=== PATIENT | female | born 1935 | race Caucasian/White ===

== ENCOUNTER 2019-07-12 07:50 | Inpatient (IN) ==
[2019-07-12] MEDS ORDERED: ONDANSETRON INJ 2 MG/ML 2 ML VIAL IV STA ×2 (08:21→09:58)
[2019-07-12] MEDS ORDERED: SODIUM CHLORIDE 0.9% 1000ML 1,000 ML IV ONE (08:21)
[2019-07-12] MEDS ORDERED: GI COCKTAIL ED USE PO ONE (08:21)
--- NOTE | 2019-07-12 08:38 | XRay Report ---
XR chest 1V portable CLINICAL HISTORY: Chest pain. COMPARISON STUDY: Chest radiograph March 28, 2018. FINDINGS: Lung volumes are normal. Lungs are clear. There is no pneumothorax or pleural effusion. Car diac size is normal. Mediastinal contours are normal. There is no evidence for pulmonary edema. IMPRESSION: No acute cardiopulmonary findings. ACT 112: Negative or not required by law. Electronically signed by: Luther Thompson M.D. 07/12/2019 8:36 AM
[2019-07-12 08:47] LABS: Basophils # (auto) 0.02 K/uL (0-0.2); Basophils % (auto) 0.2 %; Eosinophils # (auto) 0.15 K/uL (0-0.5); Eosinophils % (auto) 1.4 %; Hemoglobin 12.3 g/dL (12.0-16.0); Immature Granulocytes # (auto) 0.02 K/uL (0.00-0.02); Immature Granulocytes % (auto) 0.2 %; Lymphocytes # (auto) 0.58 K/uL (1.2-3.4); Lymphocytes % (auto) 5.5 %; Mean Corpuscular Hemoglobin 31.6 pg (25-34); Mean Corpuscular Hgb Conc 33.2 g/dL (32-36); Mean Corpuscular Volume 95.1 fL (80-100); Mean Platelet Volume 9.7 fL (7.4-10.4); Monocytes # (auto) 0.67 K/uL (0.11-0.59); Monocytes % (auto) 6.3 %; Neutrophils % (auto) 86.4 %; Platelet Count 162 K/uL (130-400); RDW Coefficient of Variation 12.4 % (11.5-14.5); RDW Standard Deviation 42.6 fL (36.4-46.3); Red Blood Count 3.89 M/uL (4.2-5.4); White Blood Count 10.64 K/uL (4.8-10.8)
[2019-07-12 09:05] LABS: Alanine Aminotransferase 14 U/L (12-78); Albumin Level 3.8 gm/dl (3.4-5.0); Aspartate Aminotransferase 17 U/L (15-37); BUN Creatinine Ratio 10.5 (10-20); Blood Urea Nitrogen 15 mg/dl (7-18); Carbon Dioxide 29 mmol/L (21-32); Chloride 102 mmol/L (98-107); Creatinine Clr Calc Pharmacy 25.2 ml/min; Est GFR (African American) 38.2; Est GFR (Non-African American) 32.9; Glucose 208 mg/dl (70-99); Lipase 61 U/L (73-393); Sodium 139 mmol/L (136-145)
[2019-07-12 09:10] LABS: Albumin Globulin Ratio 1.4 (0.9-2); Alkaline Phosphatase 57 U/L (45-117); Bilirubin,Total 0.6 mg/dl (0.2-1); Globulin 2.7 gm/dl (2.5-4.0); Total Protein 6.5 gm/dl (6.4-8.2); Troponin I < 0.015 ng/ml (0-0.045)
[2019-07-12] MEDS ORDERED: IOVERSOL 100ml IV PRN (09:18)
[2019-07-12] MEDS ORDERED: MoRPHine SULFATE 10 MG/ML CARP/VIAL IV STA (09:58)
[2019-07-12 10:03] LABS: Appearance Urine Clear (Clear); Bacteria Urine Automated Negative (Negative); Bilirubin Urine Negative (Negative); Blood Urine Trace (Negative); Cast Urine Automated 0 /lpf (0-5); Color Urine Yellow; Epithelial Cell Urine Auto 0-5 /lpf (0-5); Glucose Urine UA Negative (Negative); Ketones Urine Trace (Negative); Leukocyte Esterase Urine Negative (Negative); Nitrite Urine Negative (Negative); Protein Urine Negative (Negative); RBC Urine Automated 0-4 /hpf (0-4); Urobilinogen Urine Negative (Negative); pH Urine 6.5 (4.5-7.5)
--- NOTE | 2019-07-12 10:07 | CT Scan Report ---
CT OF THE ABDOMEN AND PELVIS WITH CONTRAST CLINICAL HISTORY: Abdominal pain. COMPARISON STUDY: CT of the abdomen and pelvis July 07, 2019. TECHNIQUE: Following IV administration of 94 mL of Optiray-320, axial images of the abdomen and pelvi s were obtained from the lung bases to the proximal femurs. Images were reviewed in the axial, sagitt al, and coronal planes. IV contrast was administered without complication. Automated exposure contro l was utilized for the study. A dose lowering technique was utilized adhering to the principles of A HUAN. CT DOSE: 310.50 mGy.cm FINDINGS: Imaged portions of the lower chest demonstrate a right mastectomy. The heart is mildly enla rged. No pneumatosis, free air or portal venous gas is present. A few subcentimeter hypodense splenic lesions are probably benign. There is no biliary or pancreatic ductal dilatation. Moderate gallbladd er wall thickening is a nonspecific finding. No hepatic lesions are present. There is moderate right and mild to moderate left hydroureteronephrosis. Several left renal cysts are noted. Nephrograms are symmetric. Interval increase in a small amount of abdominal and pelvic ascites is noted. Major vascul ature is patent. There is also been interval development of moderate small bowel dilatation. The prox imal to mid small bowel is fluid-filled and dilated. There are numerous decompressed small bowel loop s within the pelvis. This suggests a small bowel obstruction which has developed since prior exam. Th ere is mesenteric infiltration which has increased. Possible lesion of the distal transverse colon is noted. There is mild wall thickening of the transverse colon. Sigmoid diverticulosis is noted withou t evidence for acute diverticulitis. No abdominal or pelvic lymphadenopathy is noted. There is a poss ible sclerotic lesion within the posterior right 10th rib. Note is made of a 1 cm enhancing lesion [place] the left lateral wall of the bladder. There may be mild omental nodularity. IMPRESSION: 1. Interval development of a small bowel obstruction with transition point within the pelvis. The juventino ology for this obstruction is not clear on this exam. Increase in ascites and mesenteric infiltration . This could be correlated with lactate to exclude the possibility of bowel ischemia but no pneumatos is, free air or portal venous gas. Peritoneal carcinomatosis is also within the differential. Subtle omental nodularity. Findings discussed with Dr. Jolly at time of dictation. 2. Possible annular lesion within the distal transverse colon. Correlation with nonemergent colonosco py is recommended. 3. Bilateral hydronephrosis of uncertain etiology. 4. Moderate gallbladder wall thickening, a nonspecific finding. 5. 1 cm enhancing lesion along the left lateral aspect of the bladder which likely reflects a urothel ial lesion. 6. Possible sclerotic lesion within the posterior right 10th rib. Metastatic disease is within the di fferential. ACT 112: Negative or not required by law. Electronically signed by: Luther Thompson M.D. 07/12/2019 10:05 AM
--- NOTE | 2019-07-12 12:25 | History & Physical Report ---
Date of Service July 12, 2019 Assessment & Plan (1) Small bowel obstruction: -Admit to [facility] -Patient presenting from home with reports of increasing abdominal distention, nausea, vomiting, abdominal pain -CT ABD/pelvis showing small bowel obstruction however etiology unclear, possibly due to carcinomatosis (CT also notes bladder, colon, and rib lesions) -Currently no active vomiting and pain is controlled, will hold on NG tube for now -Lactate 1.6 -General surgery consult, ED notified Dr. Andino -Continue supportive care with n.p.o., IVF, IV Pepcid, pain and nausea control (2) Lesion of bladder: (3) Lesion of colon: (4) Rib lesion: (5) Bilateral hydronephrosis: -CT notes 1 cm bladder lesion and possible transverse colon and rib lesions, bilateral hydronephrosis; possible carcinomatosis as etiology for SBO -will consult urology for input -Likely will need colonoscopy however will defer GI evaluation until SBO resolved -Regarding bilateral hydronephrosis, creatinine is noted to be baseline at 1.4 -Remote history of breast cancer, previously followed with Dr. Fong (6) CKD (chronic kidney disease), stage III: - baseline creat runs in the mid ones - creat noted to be 1.4 today - continue to monitor, avoid nephrotoxic agents when able (7) DM type 2 (diabetes mellitus, type 2): -Hgb A1c 6.9 05/2019 -Hold oral agents and utilize NovoLog per protocol while hospitalized (8) HTN (hypertension): -BP controlled, continue atenolol and amlodipine (9) Temporal arteritis: -Receives Actemra injections every 14 days (10) Dyslipidemia: -Continue statin (11) DVT prophylaxis: -SQ heparin History of Present Illness Chief Complaint: Abdominal pain, vomiting Primary Care Provider: Mana Thompson DO 83-year-old female who presents the ED for evaluation of abdominal pain and vomiting. Patient was seen in the ED on 07/07 and diagnosed with gastritis. She was started on Nexium. Daughter is the bedside who provides some history. She reports the patient has been having some increased reflux symptoms over the past couple weeks. Patient was taking Pepcid without relief. After treatments received in the ED and started on the Nexium, patient had relief of symptoms for a few days. Symptoms however returned a couple of days ago. She has had increasing epigastric discomfort with nausea and several episodes of vomiting overnight. She describes emesis as bilious in nature. No hematemesis or coffee -ground emesis. Abdomen has become distended and semi-formed. She has been having several episodes of diarrhea, last normal bowel movement was 1 week ago. Denies bright red bleeding per rectum or dark tarry stools. No chest pain or shortness of breath. Denies lightheadedness, dizziness, diaphoresis, syncopal events. No fevers or chills. Denies any urinary symptoms. In the ED, CT ABD/pelvis is showing small bowel obstruction. Labs unremarkable. Patient is hemodynamically stable. She was given IVF, IV Zofran, IV morphine, GI cocktail. She is currently resting in bed, in no acute distress. Nausea and abdominal pain have improved. Allergies Allergy/AdvReac Type Severity Reaction Status Date / Time Influenza Virus Vaccines Allergy Mild SWELLING Verified 07/12/19 08:28 Home Medications Home Medications Medication Instructions Recorded Confirmed Type Actemra 162 mg IV .Q OTHER WEEK 03/28/18 07/12/19 History alprazolam [Xanax] 0.25 mg PO DAILY PRN 03/28/18 07/12/19 History ascorbic acid (vitamin C) [Vitamin 500 mg PO QAM 03/28/18 07/12/19 History C] atenolol [Tenormin] 50 mg PO BID 03/28/18 07/12/19 History calcium carbonate-vitamin D3 1 tab PO BID 03/28/18 07/12/19 History [Os-Arcadio 500 + D3] escitalopram oxalate [Lexapro] 10 mg PO QAM 03/28/18 07/12/19 History multivitamin 1 tab PO QAM 03/28/18 07/12/19 History rosuvastatin [Crestor] 20 mg PO QAM 03/28/18 07/12/19 History cranberry 400 mg PO QAM 07/07/19 07/12/19 History famotidine [Pepcid] 20 mg PO BID 07/07/19 07/12/19 History linagliptin [Tradjenta] 5 mg PO QAM 07/07/19 07/12/19 History amitriptyline 25 mg PO HS 07/12/19 07/12/19 History amlodipine 5 mg PO DAILY 07/12/19 07/12/19 History esomeprazole magnesium [Nexium] 20 mg PO DAILY 07/12/19 07/12/19 History latanoprost 1 drp OPHTHALMIC (EYE) PM 07/12/19 07/12/19 History ondansetron HCl [Zofran] 4 mg PO Q6H PRN 07/12/19 07/12/19 History tramadol 50 mg PO Q8H PRN 07/12/19 07/12/19 History Past Med/Surg History Medical History (Updated 07/12/19 @ 12:36 by RACHELLE Rodney) Anxiety Arthritis Cataracts, bilateral CKD (chronic kidney disease), stage III DM type 2 (diabetes mellitus, type 2) Dyslipidemia HTN (hypertension) HX: breast cancer Temporal arteritis Surgical History H/O right mastectomy Jun 2018 History of appendectomy History of cataract surgery S/P LIZBETH-BSO Family History (Updated 07/12/19 @ 12:24 by RACHELLE Rodney) Mother Diabetes Social History Preferred Language: Bhutanese Communication Ability: Effective Car Coupler Required: No Beliefs That Will Affect Care: None marital status: Current Living Situation: Spouse Other Information That Helps Us Care for You: No Feels Safe at Home: Yes Safety Concerns: Feels Safe At This Time Smoking Status: Never smoker Hx Alcohol Use: No Hx Substance Use: No Review of Systems Review of Systems: ROS per HPI, all other systems reviewed and negative Physical Exam Constitutional: WD/WN, vitals as above Eyes: PERRL, conjunctivae normal, anicteric sclerae ENMT: external ear and nose normal, oropharynx normal Respiratory: normal respiratory effort, lungs clear to auscultation Cardiovascular: Rate/Rhythm: regular rate and regular rhythm Vessels: normal peripheral pulses Extremities: no edema Gastrointestinal (Abdomen): Inspection/Auscultation: + abdomen distended (Semi-firm); + abnormal bowel sounds (Hyperactive) Percussion/Palpation: + abdomen tender (Epigastric); no hepatosplenomegaly Musculoskeletal: no cyanosis or clubbing, extremities motor strength 5/5 Skin: no rashes, warm and dry Neurologic: PERRL, EOMI, accommodation nl, no face palsy, no dysarthria Psychiatric: A+Ox3, euthymic affect Results & Data Vital Signs (Past 12 Hours) Vital Signs Temp Pulse Pulse Resp BP BP Pulse Ox 07/12/19 11:28 83 20 145/74 H 95 07/12/19 10:20 83 18 139/66 96 07/12/19 09:42 79 20 159/66 H 96 07/12/19 08:31 76 20 123/77 94 07/12/19 08:30 94 07/12/19 07:52 36.5 C 78 18 116/65 96 Laboratory Results Short CBC 07/12/19 Range/Units 08:40 WBC 10.64 (4.8-10.8) K/uL Hgb 12.3 (12.0-16.0) g/dL Hct 37.0 (37-47) % Plt Count 162 (130-400) K/uL BMP 07/12/19 08:40 Sodium 139 Potassium 4.0 Chloride 102 Carbon Dioxide 29 BUN 15 Creatinine 1.46 H Glucose 208 H Calcium 9.0 Cardiac Enzymes 07/12/19 Range/Units 08:40 Troponin I < 0.015 (0-0.045) ng/ml Liver Function 07/12/19 Range/Units 08:40 Total Bilirubin 0.6 (0.2-1) mg/dl AST 17 (15-37) U/L ALT 14 (12-78) U/L Alkaline Phosphatase 57 (45-117) U/L Albumin 3.8 (3.4-5.0) gm/dl Urine 07/12/19 Range/Units 09:50 Urine Color Yellow Urine Appearance Clear (Clear) Urine pH 6.5 (4.5-7.5) Ur Specific [place] 1.020 (1.000-1.030) Urine Protein Negative (Negative) Urine Glucose (UA) Negative (Negative) Diagnostic Findings CXR IMPRESSION: No acute cardiopulmonary findings. CT ABD/PELVIS IMPRESSION: 1. Interval development of a small bowel obstruction with transition point within the pelvis. The etiology for this obstruction is not clear on this exam. Increase in ascites and mesenteric infiltration. This could be correlated with lactate to exclude the possibility of bowel ischemia but no pneumatosis, free air or portal venous gas. Peritoneal carcinomatosis is also within the differential. Subtle omental nodularity. Findings discussed with Dr. Jolly at time of dictation. 2. Possible annular lesion within the distal transverse colon. Correlation with nonemergent colonoscopy is recommended. 3. Bilateral hydronephrosis of uncertain etiology. 4. Moderate gallbladder wall thickening, a nonspecific finding. 5. 1 cm enhancing lesion along the left lateral aspect of the bladder which lik mina reflects a urothelial lesion. 6. Possible sclerotic lesion within the posterior right 10th rib. Metastatic disease is within the differential. Code Status & VTE Plan Code Status Patient is a DNR as per my discussion with her. VTE Prophylaxis Plan VTE Prophylaxis will be ordered: Yes Supervising Physician Co-Signing Physician Notes Attending addendum: The patient was seen and examined in medical floor in presence of the daughter According to the daughter she has been complaining of acute abdominal pain with distention since last evening She has had diarrhea for the last day or 2 but no bowel movement since admission She denies any acute pain during examination and feels that her abdominal swelling has been improving with NG tube On examination Lying in bed without any acute distress Hemodynamically stable with blood pressure at the upper side Chest-clear to auscultate bilaterally Heart-S1-S2, regular Abdomen-distended, soft. Mildly tender on palpation. Bowel sounds sluggish Admission labs and imaging studies reviewed Has intestinal obstruction likely secondary to adhesions and rule out other significant medical condition like cancer Abnormal findings on CAT scan of the abdomen and pelvis has noted Urology consulted for now Agree with assessment and plan as outlined above by Joanne Banks
[2019-07-12] MEDS ORDERED: GLUCOSE 10 TABS/TUBE PO PRN (12:46)
[2019-07-12] MEDS ORDERED: DEXTROSE 50% 50 ML SYRINGE IV PRN (12:46)
[2019-07-12] MEDS ORDERED: MoRPHine SULFATE 4 MG/ML 1 ML CARP\\VIAL IV PRN (12:46)
[2019-07-12] MEDS ORDERED: ACETAMINOPHEN 325 MG TAB PO PRN (12:46)
[2019-07-12] MEDS ORDERED: GLUCAGON FOR INJ 1 MG VIAL SQ PRN (12:46)
[2019-07-12] MEDS ORDERED: CARBOHYDRATES FOR HYPOGLYCEMIA PO PRN (12:46)
[2019-07-12] MEDS ORDERED: GLUCOSE 40% GEL 15 GM TUBE PO PRN (12:46)
--- NOTE | 2019-07-12 13:13 | Surgery Consultation ---
Date of Consultation July 12, 2019 Assessment & Plan (1) Small bowel obstruction: The present situation was discussed with the patient and her daughter time she is still nauseated although has not vomited since last evening her abdomen being distended and some generalized guarding I recommended that we place an NG tube in her to make her more comfortable at this time no surgery is indicated hopefully we can resolve this without surgery indicated only an adhesion most likely described of obstruction but she does need colonoscopy to visualize that area and the transverse colon this was discussed in detail with the patient and her family and they are agreeable to proceed accordingly Present on Admission?: Yes History of Present Illness Reason for Consultation: Possible bowel obstruction This 83-year-old female who had breast surgery in 2009 and about that time had colonoscopy which according to the daughter remove the polyp and was told never needing another colonoscope in the future because of her age has been seen in the emergency room twice within the last week for abdominal pain nausea and emesis came back in today where she has had repeated bouts of emesis last evening and also changes in bowel habits with bouts of diarrhea loose stools that she had [address] scan was evaluated and found to have findings compatible with small obstruction transition zone possibly in the pelvis also identified on CT scan to have what appears to be an annular lesion or transverse colon may be some nodularity in the abdomen with some ascitic fluid consistent with possible abdominal carcinomatosis we were asked to see her for a bowel obstruction Attending Physician: Vera Banks MD Allergies Allergy/AdvReac Type Severity Reaction Status Date / Time Influenza Virus Vaccines Allergy Mild SWELLING Verified 07/12/19 08:28 Home Medications Home Medications Medication Instructions Recorded Confirmed Type Actemra 162 mg IV .Q OTHER WEEK 03/28/18 07/12/19 History alprazolam [Xanax] 0.25 mg PO DAILY PRN 03/28/18 07/12/19 History ascorbic acid (vitamin C) [Vitamin 500 mg PO QAM 03/28/18 07/12/19 History C] atenolol [Tenormin] 50 mg PO BID 03/28/18 07/12/19 History calcium carbonate-vitamin D3 1 tab PO BID 03/28/18 07/12/19 History [Os-Arcadio 500 + D3] escitalopram oxalate [Lexapro] 10 mg PO QAM 03/28/18 07/12/19 History multivitamin 1 tab PO QAM 03/28/18 07/12/19 History rosuvastatin [Crestor] 20 mg PO QAM 03/28/18 07/12/19 History cranberry 400 mg PO QAM 07/07/19 07/12/19 History famotidine [Pepcid] 20 mg PO BID 07/07/19 07/12/19 History linagliptin [Tradjenta] 5 mg PO QAM 07/07/19 07/12/19 History amitriptyline 25 mg PO HS 07/12/19 07/12/19 History amlodipine 5 mg PO DAILY 07/12/19 07/12/19 History esomeprazole magnesium [Nexium] 20 mg PO DAILY 07/12/19 07/12/19 History latanoprost 1 drp OPHTHALMIC (EYE) PM 07/12/19 07/12/19 History ondansetron HCl [Zofran] 4 mg PO Q6H PRN 07/12/19 07/12/19 History tramadol 50 mg PO Q8H PRN 07/12/19 07/12/19 History Patient History Medical History (Updated 07/12/19 @ 12:36 by RACHELLE Rodney) Anxiety Arthritis Cataracts, bilateral CKD (chronic kidney disease), stage III DM type 2 (diabetes mellitus, type 2) Dyslipidemia HTN (hypertension) HX: breast cancer Temporal arteritis Surgical History H/O right mastectomy Jun 2018 History of appendectomy History of cataract surgery S/P LIZBETH-BSO Family History (Updated 07/12/19 @ 12:24 by RACHELLE Rodney) Mother Diabetes Social History Preferred Language: Polish Communication Ability: Effective Procurement Buyer Required: No Beliefs That Will Affect Care: None marital status: Current Living Situation: Spouse Other Information That Helps Us Care for You: No Feels Safe at Home: Yes Safety Concerns: Feels Safe At This Time Smoking Status: Never smoker Hx Alcohol Use: No Hx Substance Use: No Review of Systems Review of Systems: As stated the patient had breast surgery in 2009 and worked up with colonoscope around that time for a polyp she also had a remote history of total abdominal hysterectomy and bilateral salpingo-oophorectomy Since most recent episode within the last week or so the patient has enjoyed good health and her daughter states that she is quite active lives with her 85-year-old and according to the daughter the patient was cleaning leaves off a roof a few months ago She denies any changes in weight and she did have changes in bowel habits in the recent past approximately 6 weeks or so Physical Exam Constitutional: WD/WN, vitals as above well developed, well nourished and average body habitus Eyes: PERRL, conjunctivae normal, anicteric sclerae ENMT: external ear and nose normal, oropharynx normal Respiratory: normal respiratory effort, lungs clear to auscultation Cardiovascular: RRR, no murmur, no edema Gastrointestinal (Abdomen): The abdomen is distended tympanitic with generalized guarding no localized tenderness no groin hernias appreciated Results & Data Vital Signs (Past 12 Hours) Vital Signs Temp Pulse Pulse Resp BP BP Pulse Ox 07/12/19 12:40 80 20 95 07/12/19 11:28 83 20 145/74 H 95 07/12/19 10:20 83 18 139/66 96 07/12/19 09:42 79 20 159/66 H 96 07/12/19 08:31 76 20 123/77 94 07/12/19 08:30 94 07/12/19 07:52 36.5 C 78 18 116/65 96 PG Care Time/CCT Total # of Minutes Spent Total Time Spent with Patient: Total time spent is greater than 50% in coordination of care (as documented) at patient's floor/unit and/or counseling patient:
--- NOTE | 2019-07-12 13:30 | Emergency Department Note ---
Entered by Eileen Suarez acting as a scribe for Dereje Jolly DO History of Present Illness General Chief complaint: GI Assessment Stated complaint: VOMITING,PAIN,FIRM DISTENTION Source: patient and family (daughter) History of Present Illness Onset (ago): day(s) 2 Location: abdomen (upper) Radiation: other (throat) Severity: similar to prior episodes Pain Consistency: + constant Maximum Pain Intensity: 9 Quality: + burning Associated symptoms: + nausea/vomiting, + shortness of breath and + other (positive diarrhea; negative arm pain; negative jaw pain) The patient is a 83 year old female who presents to the Emergency Room with complaints of constant upper abdominal pain that began 2 days prior to arrival. The patient describes this pain as burning and states that it radiates up into her throat. She states that she was seen in the ED on Sunday for the same symptoms, stating that they originally began approximately 2 weeks ago. The patient reports that her symptoms resolved for Sunday and Sunday but returned 2 days ago. The patient reports nausea, vomiting, diarrhea, and shortness of breath during this time. She denies arm pain and jaw pain. The patient's daughter states that the patient has been under a lot of stress recently. The patient states that she previously had a total hysterectomy and appendectomy. She states that she still has her gallbladder. Home Medications Home Medications Medication Instructions Recorded Confirmed Type Actemra 162 mg IV .Q OTHER WEEK 03/28/18 07/12/19 History alprazolam [Xanax] 0.25 mg PO DAILY PRN 03/28/18 07/12/19 History ascorbic acid (vitamin C) [Vitamin 500 mg PO QAM 03/28/18 07/12/19 History C] atenolol [Tenormin] 50 mg PO BID 03/28/18 07/12/19 History calcium carbonate-vitamin D3 1 tab PO BID 03/28/18 07/12/19 History [Os-Arcadio 500 + D3] escitalopram oxalate [Lexapro] 10 mg PO QAM 03/28/18 07/12/19 History multivitamin 1 tab PO QAM 03/28/18 07/12/19 History rosuvastatin [Crestor] 20 mg PO QAM 03/28/18 07/12/19 History cranberry 400 mg PO QAM 07/07/19 07/12/19 History famotidine [Pepcid] 20 mg PO BID 07/07/19 07/12/19 History linagliptin [Tradjenta] 5 mg PO QAM 07/07/19 07/12/19 History amitriptyline 25 mg PO HS 07/12/19 07/12/19 History amlodipine 5 mg PO DAILY 07/12/19 07/12/19 History esomeprazole magnesium [Nexium] 20 mg PO DAILY 07/12/19 07/12/19 History latanoprost 1 drp OPHTHALMIC (EYE) PM 07/12/19 07/12/19 History ondansetron HCl [Zofran] 4 mg PO Q6H PRN 07/12/19 07/12/19 History tramadol 50 mg PO Q8H PRN 07/12/19 07/12/19 History Allergies Allergy/AdvReac Type Severity Reaction Status Date / Time Influenza Virus Vaccines Allergy Mild SWELLING Verified 07/12/19 08:28 Past Med/Surg History Medical History (Updated 07/12/19 @ 12:36 by RACHELLE Rodney) Anxiety Arthritis Cataracts, bilateral CKD (chronic kidney disease), stage III DM type 2 (diabetes mellitus, type 2) Dyslipidemia HTN (hypertension) HX: breast cancer Temporal arteritis Surgical History H/O right mastectomy Jun 2018 History of appendectomy History of cataract surgery S/P LIZBETH-BSO Family History (Updated 07/12/19 @ 12:24 by RACHELLE Rodney) Mother Diabetes Social History Preferred Language: Irish Communication Ability: Effective Systems Development Consultant Required: No Beliefs That Will Affect Care: None marital status: Current Living Situation: Spouse Other Information That Helps Us Care for You: No Feels Safe at Home: Yes Safety Concerns: Feels Safe At This Time Smoking Status: Never smoker Hx Alcohol Use: No Hx Substance Use: No Review of Systems See HPI for pertinent positives & negatives. and A total of 10 systems reviewed and were otherwise negative Physical Exam Vital Signs Vital Signs - 24 hr 07/12/19 07:52 07/12/19 08:30 07/12/19 08:31 Temperature 36.5 C Temperature Source Oral Pulse Rate 78 Pulse Rate [Apical] 76 Pulse Rhythm [Apical] Pulse Strength [Apical] Respiratory Rate 18 20 Respiratory Effort / Characteristics Non-Labored Spontaneous Non-Labored Spontaneous Respiratory Depth Normal Normal Respiratory Pattern Regular Blood Pressure 116/65 Blood Pressure [Left Arm] 123/77 Blood Pressure Mean 82 Blood Pressure Mean [Left Arm] 92 Blood Pressure Position Sitting Blood Pressure Position [Left Arm] Pulse Oximetry 96 94 94 Oxygen Delivery Method Room Air Room Air Sepsis Recent Fever Within 48 Hours No Sepsis New/Unexplained Change in Mental Status No Sepsis Action Taken by Nursing No Action Required 07/12/19 09:42 07/12/19 10:20 07/12/19 11:28 Temperature Temperature Source Pulse Rate Pulse Rate [Apical] 79 83 83 Pulse Rhythm [Apical] Regular Pulse Strength [Apical] Normal Respiratory Rate 20 18 20 Respiratory Effort / Characteristics Respiratory Depth Normal Normal Normal Respiratory Pattern Blood Pressure Blood Pressure [Left Arm] 159/66 H 139/66 145/74 H Blood Pressure Mean Blood Pressure Mean [Left Arm] 97 90 97 Blood Pressure Position Blood Pressure Position [Left Arm] Sitting Pulse Oximetry 96 96 95 Oxygen Delivery Method Room Air Room Air Room Air Sepsis Recent Fever Within 48 Hours Sepsis New/Unexplained Change in Mental Status Sepsis Action Taken by Nursing GENERAL: Sitting up in bed, soft spoken, disheveled, wearing hospital gown. EYE EXAM: normal conjunctiva OROPHARYNX: no exudate, no erythema, lips, buccal mucosa, and tongue normal and mucous membranes are moist NECK: supple, no nuchal rigidity, no adenopathy, non-tender LUNGS: Clear to auscultation. Normal chest wall mechanics HEART: no murmurs, S1 normal and S2 normal ABDOMEN: Tender to palpation in the epigastric region. Abdomen soft, normo-ac tive bowel sounds, no masses, no rebound or guarding. BACK: Back is symmetrical on inspection and there is no deformity, no midline tenderness, no CVA tenderness. SKIN: no rashes and no bruising UPPER EXTREMITIES: upper extremities are grossly normal. LOWER EXTREMITIES: No pitting edema. NEURO EXAM: Normal sensorium, cranial nerves II-XII grossly intact, normal speech, no gross weakness of arms, no gross weakness of legs. Course Course ED COURSE: Vital signs were reviewed and showed normal vitals The patients medical record was reviewed The above diagnostic studies were performed and reviewed. ED treatments and interventions as stated above. 0812: The patient was evaluated in room B6. A complete history and physical examination was performed. 1001: Upon reevaluation, the patient is resting comfortably. I discussed my findings with the patient and she understands and agrees with the treatment p ed. Based on the patients age, coexisting illnesses, exam and lab findings the decision to treat as an inpatient was made. The patient remained stable while under my care. 1015: I discussed the case with Dr. Andino-General Surgery who recommends the patient be further evaluated by the hospitalist service 1028: The patient will be evaluated for further management. I discussed the case with Joanne BUSH who accepts the patient for further evaluation under Dr. Messer Hospitalist service. Administered Medications Discontinued Medications Al Hydrox/Mg Hydrox/Simethicone () 1 dose PO ONE ONE Stop: 07/12/19 08:22 Last Admin: 07/12/19 08:45 Dose: 1 dose Documented by: [id number] Sodium Chloride (Nss 1000ml) 1,000 mls @ 999 mls/hr IV .Q1H1M ONE Stop: 07/12/19 09:21 Last Infusion: 07/12/19 09:54 Dose: 0 mls/hr Documented by: [id number] Admin: 07/12/19 08:45 Dose: 999 mls/hr Documented by: [id number] Ioversol (Optiray 320 100ml) 94 ml IV ONCE PRN PRN Reason: Interaction Checking Stop: 07/16/19 09:17 Last Admin: 07/12/19 09:18 Dose: 94 ml Documented by: [id number] Morphine Sulfate (Morphine Sulfate) 6 mg IV NOW STA Stop: 07/12/19 09:59 Last Admin: 07/12/19 10:07 Dose: 6 mg Documented by: [id number] Ondansetron HCl (Zofran) 4 mg IV NOW STA Stop: 07/12/19 08:22 Last Admin: 07/12/19 08:45 Dose: 4 mg Documented by: [id number] Ondansetron HCl (Zofran) 4 mg IV NOW STA Stop: 07/12/19 09:59 Last Admin: 07/12/19 10:07 Dose: 4 mg Documented by: [id number] Medical Decision Making Differential Diagnosis Differential diagnoses includes but is not limited to gastritis, peptic ulcer disease, GERD, gallbladder disease, pancreatitis, small bowel obstruction, acute coronary syndrome, pericarditis, ischemic bowel, irritable bowel disease, irritable bowel syndrome, appendicitis, diverticulitis, malignancy, hernia, urinary tract infection, torsion, /ectopic , perforation, trauma, infectious. Medical Records Attestation: I reviewed the patient's medical records. Home Medications Current Medication List: was personally reviewed by me Laboratory Data Attestation: I reviewed the patient's lab results. Result diagrams: 07/12/19 08:40 07/12/19 08:40 Lab Results 07/12/19 07/12/19 07/12/19 Range/Units 08:40 08:40 09:50 WBC 10.64 (4.8-10.8) K/uL RBC 3.89 L (4.2-5.4) M/uL Hgb 12.3 (12.0-16.0) g/dL Hct 37.0 (37-47) % MCV 95.1 (80-100) fL MCH 31.6 (25-34) pg MCHC 33.2 (32-36) g/dL RDW Std Deviation 42.6 (36.4-46.3) fL RDW Coeff of Jennifer 12.4 (11.5-14.5) % Plt Count 162 (130-400) K/uL MPV 9.7 (7.4-10.4) fL Immature Gran % (Auto) 0.2 % Neut % (Auto) 86.4 % Lymph % (Auto) 5.5 % [place] % (Auto) 6.3 % Eos % (Auto) 1.4 % Baso % (Auto) 0.2 % Immature Gran # (Auto) 0.02 (0.00-0.02) K/uL Neut # (Auto) 9.20 H (1.4-6.5) K/uL Lymph # (Auto) 0.58 L (1.2-3.4) K/uL [place] # (Auto) 0.67 H (0.11-0.59) K/uL Eos # (Auto) 0.15 (0-0.5) K/uL Baso # (Auto) 0.02 (0-0.2) K/uL Sodium 139 (136-145) mmol/L Potassium 4.0 (3.5-5.1) mmol/L Chloride 102 (98-107) mmol/L Carbon Dioxide 29 (21-32) mmol/L Anion Gap 7.0 (3-11) BUN 15 (7-18) mg/dl Creatinine 1.46 H (0.6-1.2) mg/dl Est Cr Clr Drug Dosing 25.2 ml/min Est GFR ( Amer) 38.2 Est GFR (Non-Af Amer) 32.9 BUN/Creatinine Ratio 10.5 (10-20) Glucose 208 H (70-99) mg/dl Lactate (0.4-2.0) mmol/L Calcium 9.0 (8.5-10.1) mg/dl Total Bilirubin 0.6 (0.2-1) mg/dl AST 17 (15-37) U/L ALT 14 (12-78) U/L Alkaline Phosphatase 57 (45-117) U/L Troponin I < 0.015 (0-0.045) ng/ml Total Protein 6.5 (6.4-8.2) gm/dl Albumin 3.8 (3.4-5.0) gm/dl Globulin 2.7 (2.5-4.0) gm/dl Albumin/Globulin Ratio 1.4 (0.9-2) Lipase 61 L (73-393) U/L Urine Color Yellow Urine Appearance Clear (Clear) Urine pH 6.5 (4.5-7.5) Ur Specific [place] 1.020 (1.000-1.030) Urine Protein Negative (Negative) Urine Glucose (UA) Negative (Negative) Urine Ketones Trace H (Negative) Urine Blood Trace H (Negative) Urine Nitrite Negative (Negative) Urine Bilirubin Negative (Negative) Urine Urobilinogen Negative (Negative) Ur Leukocyte Esterase Negative (Negative) Urine WBC (Auto) 1-5 (0-5) /hpf Urine RBC (Auto) 0-4 (0-4) /hpf U Hyaline Cast (Auto) 0 (0-5) /lpf U Epithel Cells (Auto) 0-5 (0-5) /lpf Urine Bacteria (Auto) Negative (Negative) 07/12/19 Range/Units 10:25 WBC (4.8-10.8) K/uL RBC (4.2-5.4) M/uL Hgb (12.0-16.0) g/dL Hct (37-47) % MCV (80-100) fL MCH (25-34) pg MCHC (32-36) g/dL RDW Std Deviation (36.4-46.3) fL RDW Coeff of Jennifer (11.5-14.5) % Plt Count (130-400) K/uL MPV (7.4-10.4) fL Immature Gran % (Auto) % Neut % (Auto) % Lymph % (Auto) % [place] % (Auto) % Eos % (Auto) % Baso % (Auto) % Immature Gran # (Auto) (0.00-0.02) K/uL Neut # (Auto) (1.4-6.5) K/uL Lymph # (Auto) (1.2-3.4) K/uL [place] # (Auto) (0.11-0.59) K/uL Eos # (Auto) (0-0.5) K/uL Baso # (Auto) (0-0.2) K/uL Sodium (136-145) mmol/L Potassium (3.5-5.1) mmol/L Chloride (98-107) mmol/L Carbon Dioxide (21-32) mmol/L Anion Gap (3-11) BUN (7-18) mg/dl Creatinine (0.6-1.2) mg/dl Est Cr Clr Drug Dosing ml/min Est GFR ( Amer) Est GFR (Non-Af Amer) BUN/Creatinine Ratio (10-20) Glucose (70-99) mg/dl Lactate 1.6 (0.4-2.0) mmol/L Calcium (8.5-10.1) mg/dl Total Bilirubin (0.2-1) mg/dl AST (15-37) U/L ALT (12-78) U/L Alkaline Phosphatase (45-117) U/L Troponin I (0-0.045) ng/ml Total Protein (6.4-8.2) gm/dl Albumin (3.4-5.0) gm/dl Globulin (2.5-4.0) gm/dl Albumin/Globulin Ratio (0.9-2) Lipase (73-393) U/L Urine Color Urine Appearance (Clear) Urine pH (4.5-7.5) Ur Specific [place] (1.000-1.030) Urine Protein (Negative) Urine Glucose (UA) (Negative) Urine Ketones (Negative) Urine Blood (Negative) Urine Nitrite (Negative) Urine Bilirubin (Negative) Urine Urobilinogen (Negative) Ur Leukocyte Esterase (Negative) Urine WBC (Auto) (0-5) /hpf Urine RBC (Auto) (0-4) /hpf U Hyaline Cast (Auto) (0-5) /lpf U Epithel Cells (Auto) (0-5) /lpf Urine Bacteria (Auto) (Negative) Imaging Data Radiologist's Impression: Radiology results as stated below per my review and the radiologist's interpretation: XR chest 1V portable CLINICAL HISTORY: Chest pain. COMPARISON STUDY: Chest radiograph March 28, 2018. FINDINGS: Lung volumes are normal. Lungs are clear. There is no pneumothorax or pleural effusion. Cardiac size is normal. Mediastinal contours are normal. There is no evidence for pulmonary edema. IMPRESSION: No acute cardiopulmonary findings. ACT 112: Negative or not required by law. Electronically signed by: Luther Tohmpson M.D. 07/12/2019 8:[address] OF THE ABDOMEN AND PELVIS WITH CONTRAST CLINICAL HISTORY: Abdominal pain. COMPARISON STUDY: CT of the abdomen and pelvis July 07, 2019. TECHNIQUE: Following IV administration of 94 mL of Optiray-320, axial images of the abdomen and pelvis were obtained from the lung bases to the proximal femurs. Images were reviewed in the axial, sagittal, and coronal planes. IV contrast was administered without complication. Automated exposure control was utilized for the study. A dose lowering technique was utilized adhering to the principles of ALARA. CT DOSE: 310.50 mGy.cm FINDINGS: Imaged portions of the lower chest demonstrate a right mastectomy. The heart is mildly enlarged. No pneumatosis, free air or portal venous gas is present. A few subcentimeter hypodense splenic lesions are probably benign. There is no biliary or pancreatic ductal dilatation. Moderate gallbladder wall thickening is a nonspecific finding. No hepatic lesions are present. There is moderate right and mild to moderate left hydroureteronephrosis. Several left renal cysts are noted. Nephrograms are symmetric. Interval increase in a small amount of abdominal and pelvic ascites is noted. Major vasculature is patent. There is also been interval development of moderate small bowel dilatation. The proximal to mid small bowel is fluid-filled and dilated. There are numerous decompressed small bowel loops within the pelvis. This suggests a small bowel obstruction which has developed since prior exam. There is mesenteric infiltration which has increased. Possible lesion of the distal transverse colon is noted. There is mild wall thickening of the transverse colon. Sigmoid diverticulosis is noted without evidence for acute diverticulitis. No abdominal or pelvic lymphadenopathy is noted. There is a possible sclerotic lesion within the posterior right 10th rib. Note is made of a 1 cm enhancing lesion along the left lateral wall of the bladder. There may be mild omental nodularity. IMPRESSION: 1. Interval development of a small bowel obstruction with transition point within the pelvis. The etiology for this obstruction is not clear on this exam. Increase in ascites and mesenteric infiltration. This could be correlated with lactate to exclude the possibility of bowel ischemia but no pneumatosis, free air or portal venous gas. Peritoneal carcinomatosis is also within the differential. Subtle omental nodularity. Findings discussed with Dr. Jolly at time of dictation. 2. Possible annular lesion within the distal transverse colon. Correlation with nonemergent colonoscopy is recommended. 3. Bilateral hydronephrosis of uncertain etiology. 4. Moderate gallbladder wall thickening, a nonspecific finding. 5. 1 cm enhancing lesion along the left lateral aspect of the bladder which likely reflects a urothelial lesion. 6. Possible sclerotic lesion within the posterior right 10th rib. Metastatic disease is within the differential. ACT 112: Negative or not required by law. Electronically signed by: Luther Thompson M.D. 07/12/2019 10:05 AM ECG Data Attestation: I personally reviewed and interpreted this ECG as follows: Indication: + abdominal pain Rate (beats per minute): 74 Rhythm: + sinus rhythm ECG [place]: + Left axis deviation ECG Findings: + Other (poor baseline in inferior leads) Blood Pressure Blood Pressure Findings: Elevated blood pressure Blood Pressure Disposition: further management by hospitalist ADAMARIS Melendez Patient is an 83-year-old female who presents to the ER for abdominal pain. She was seen here 4 to 5 days ago and had a CT extensive work-up which was fairly unremarkable with the exception of the CT of the abdomen pelvis which showed gastritis and a mass in the bladder. She represents today for significant worsening of abdominal pain associate with episodes of vomiting last night. IV was established blood work was obtained and showed no significant leukocytosis or anemia. BMP with a creatinine 1.46. LFTs bilirubin lipase and troponin was unremarkable. UA had a small amount of hematuria. CT abdomen pelvis was reper formed due to the distention and abdominal pain which showed a small bowel obstruction with a bowel mass and fair amount of fluid within the abdomen. Discussed with general surgery and the hospitalist. Patient was given IV fluids and IV pain medications. General surgery evaluated her at bedside and will place the order for the NG tube. Patient did rest comfortably in the ER and was admitted to the hospital for a small bowel obstruction likely secondary to adhesions from previous surgery/hysterectomy. Of note lactate was negative and consequently I favor that this is unlikely ischemic. Impression & Plan Small bowel obstruction, Abdominal pain, Lesion of bladder Discharge Plan Visit Data *Final* Discharge Date/Time: 07/12/19 12:40 Chief Complaint: GI Assessment Stated Complaint: VOMITING,PAIN,FIRM DISTENTION ED Provider: Dereje Jolly Discharge Problem: Small bowel obstruction, Abdominal pain, Lesion of bladder Patient Disposition: Admitted As Inpatient Discharge Instructions Interventions: ED Discharge Assessment Last Done: 07/12/19 12:40 The scribe's documentation has been prepared under my direction and personally reviewed by me in its entirety. I confirm that the note above accurately reflects all work, treatment, procedures, and medical decision making performed by me.
[2019-07-12] MEDS: FAMOTIDINE 20 MG in SYRINGE 3 ML IV SCH ×2 (14:13→21:14)
[2019-07-12] MEDS: HEPARIN SOD 5,000 UNIT/0.5 ML VIAL SQ SCH ×2 (14:14→21:29)
[2019-07-12] MEDS: SODIUM CHLORIDE 0.9% 1000ML 1,000 ML IV SCH (14:32)
[2019-07-12] MEDS ORDERED: Nursing to Pharmacy Communication ONE (15:11)
[2019-07-12] MEDS ORDERED: CHLORASEPTIC 1.4% SOLN 180 ML BTL MT PRN (15:32)
[2019-07-12] MEDS ORDERED: INSULIN ASPART 100 UNITS/ML 3 ML PEN SC SCH (16:30)
--- NOTE | 2019-07-12 17:34 | Urology Consultation ---
Date of Consultation July 12, 2019 Assessment & Plan (1) Bilateral hydronephrosis: Patient undergoing work-up for multiple issues. Major concern is acute likely small bowel obstruction. Patient has been managed closely by general surgery and the medicine teams. Patient was incidentally found to have bilateral hydronephrosis. Patient does have a creatinine around 1.4 normally and is up to this level now. No major other issues. Has been hydrating better. Is undergoing acute management of her bowel related issues. Patient is found to have what appears to be possible bladder lesions. Has not had work-up in the past. Will likely need work-up including cystoscopy. Will need to coordinate over the next few weeks to decide when would be best to do this. For the time being would recommend continued management of her acute bowel and other issues. We will continue to follow closely. Will monitor hydronephrosis to see if this worsens or causes any major issues. Continue to monitor creatinine as well as other issues and will decide if need to be done more acutely. Has seen Nephrology before, but no prior urology. History of Present Illness Attending Physician: Vear Banks MD History of Present Illness New consultation. Patient admitted for likely bowel obstruction. Having multiple severe episodes of abdominal pain severe and bothersome going in waves. Had CT scan which showed multiple abnormalities more specific to the system showed some bilateral hydronephrosis patient did have a mild elevation in creatinine. Also found to have possible bladder lesions. Patient is undergoing work-up for multiple issues. Is currently be acutely managed for likely small bowel obstruction. Has improved some over the the last few hours. But continues to have other major issues. Pain comes in waves to back and flank as well as lower pelvis and abdomen. Allergies Allergy/AdvReac Type Severity Reaction Status Date / Time Influenza Virus Vaccines Allergy Mild SWELLING Verified 07/12/19 08:28 Home Medications Home Medications Medication Instructions Recorded Confirmed Type Actemra 162 mg IV .Q OTHER WEEK 03/28/18 07/12/19 History alprazolam [Xanax] 0.25 mg PO DAILY PRN 03/28/18 07/12/19 History ascorbic acid (vitamin C) [Vitamin 500 mg PO QAM 03/28/18 07/12/19 History C] atenolol [Tenormin] 50 mg PO BID 03/28/18 07/12/19 History calcium carbonate-vitamin D3 1 tab PO BID 03/28/18 07/12/19 History [Os-[place] 500 + D3] escitalopram oxalate [Lexapro] 10 mg PO QAM 03/28/18 07/12/19 History multivitamin 1 tab PO QAM 03/28/18 07/12/19 History rosuvastatin [Crestor] 20 mg PO QAM 03/28/18 07/12/19 History cranberry 400 mg PO QAM 07/07/19 07/12/19 History famotidine [Pepcid] 20 mg PO BID 07/07/19 07/12/19 History linagliptin [Tradjenta] 5 mg PO QAM 07/07/19 07/12/19 History amitriptyline 25 mg PO HS 07/12/19 07/12/19 History amlodipine 5 mg PO DAILY 07/12/19 07/12/19 History esomeprazole magnesium [Nexium] 20 mg PO DAILY 07/12/19 07/12/19 History latanoprost 1 drp OPHTHALMIC (EYE) PM 07/12/19 07/12/19 History ondansetron HCl [Zofran] 4 mg PO Q6H PRN 07/12/19 07/12/19 History tramadol 50 mg PO Q8H PRN 07/12/19 07/12/19 History Patient History Medical History Anxiety Arthritis Cataracts, bilateral CKD (chronic kidney disease), stage III DM type 2 (diabetes mellitus, type 2) Dyslipidemia HTN (hypertension) HX: breast cancer Temporal arteritis Surgical History H/O right mastectomy Jun 2018 History of appendectomy History of cataract surgery S/P LIZBETH-BSO Family History Mother Diabetes Social History Preferred Language: Chilean Communication Ability: Effective Centerpuncher Required: No Beliefs That Will Affect Care: None marital status: Current Living Situation: Spouse Other Information That Helps Us Care for You: No Feels Safe at Home: Yes Safety Concerns: Feels Safe At This Time Smoking Status: Never smoker Hx Alcohol Use: No Hx Substance Use: No Review of Systems Review of Systems: All systems reviewed & are unremarkable except as noted in HPI & below As stated the patient had breast surgery in 2009 and worked up with colonoscope around that time for a polyp she also had a remote history of total abdominal hysterectomy and bilateral salpingo-oophorectomy Since most recent episode within the last week or so the patient has enjoyed good health and her daughter states that she is quite active lives with her 85-year-old and according to the daughter the patient was cleaning leaves off a roof a few months ago She denies any changes in weight and she did have changes in bowel habits in the recent past approximately 6 weeks or so Physical Exam Physical Exam: General: Alert in no acute distress. Advanced age. HEENT: NG in place. Normocephalic Atraumatic. Inspection normal. Cranial Nerves 2-12 Grossly intact. Normal inspection of face. Normal inspection of neck. Psychologic: Normal affect. Respiratory: Nonlabored. No use of accessory muscles. No tachypnea or dyspnea. Cardiovascular: No tachycardia Skin: [place] and Dry. No rashes or visible lesions. Extremities/Lymphatics: No edema Abdomen: Moderately distended with tenderness : No felix. No blood in urine. Results & Data Vital Signs (Past 12 Hours) Vital Signs Temp Pulse Pulse Pulse Resp BP BP 07/12/19 15:31 36.6 C 79 17 152/71 H 07/12/19 12:53 36.8 C 78 16 156/70 H 07/12/19 12:40 80 20 07/12/19 11:28 83 20 145/74 H 07/12/19 10:20 83 18 139/66 07/12/19 09:42 79 20 159/66 H 07/12/19 08:31 76 20 123/77 07/12/19 08:30 07/12/19 07:52 36.5 C 78 18 116/65 Pulse Ox 07/12/19 15:31 95 07/12/19 12:53 95 07/12/19 12:40 95 07/12/19 11:28 95 07/12/19 10:20 96 07/12/19 09:42 96 07/12/19 08:31 94 07/12/19 08:30 94 07/12/19 07:52 96 PG Care Time/CCT Total # of Minutes Spent Total Time Spent with Patient: Total time spent is greater than 50% in coordination of care (as documented) at patient's floor/unit and/or counseling patient:
[2019-07-12] MEDS: INSULIN ASPART 100 UNITS/ML 3 ML PEN SC SCH (19:09)
[2019-07-12] MEDS: LATANOPROST 0.005% OP SOLN 2.5 ML BTL OP SCH (21:13)
[2019-07-12] MEDS: AMITRIPTYLINE HCL 25 MG TAB PO SCH (21:14)
[2019-07-12] MEDS: ATENOLOL 50 MG TABLET PO SCH (21:24)
[2019-07-13] MEDS: INSULIN ASPART 100 UNITS/ML 3 ML PEN SC SCH ×5 (00:02→23:42)
[2019-07-13] MEDS: SODIUM CHLORIDE 0.9% 1000ML 1,000 ML IV SCH ×3 (00:06→20:28)
[2019-07-13] MEDS: ACETAMINOPHEN 1,000 MG/100 ML VIAL IV PRN ×2 (00:11→21:01)
[2019-07-13 05:26] LABS: Hematocrit (blood only) 34.8 % (37-47); Hemoglobin 11.1 g/dL (12.0-16.0); Mean Corpuscular Hemoglobin 31.2 pg (25-34); Mean Corpuscular Hgb Conc 31.9 g/dL (32-36); Mean Corpuscular Volume 97.8 fL (80-100); RDW Coefficient of Variation 12.8 % (11.5-14.5); Red Blood Count 3.56 M/uL (4.2-5.4); White Blood Count 10.76 K/uL (4.8-10.8)
[2019-07-13 05:48] LABS: BUN Creatinine Ratio 13.2 (10-20); Creatinine Clr Calc Pharmacy 29.4 ml/min; Est GFR (African American) 46.1; Est GFR (Non-African American) 39.7; Potassium 4.2 mmol/L (3.5-5.1)
[2019-07-13] MEDS: HEPARIN SOD 5,000 UNIT/0.5 ML VIAL SQ SCH ×3 (06:10→21:12)
[2019-07-13 06:41] LABS: Mean Platelet Volume 10.8 fL (7.4-10.4); Platelet Count 83 K/uL (130-400)
[2019-07-13] MEDS: ATENOLOL 50 MG TABLET PO SCH ×2 (09:12→21:04)
[2019-07-13] MEDS: ROSUVASTATIN CALCIUM 20 MG TAB PO SCH (09:12)
[2019-07-13] MEDS: FAMOTIDINE 20 MG in SYRINGE 3 ML IV SCH ×2 (09:12→21:20)
[2019-07-13] MEDS: ESCITALOPRAM OXALATE 10 MG TAB PO SCH (09:12)
[2019-07-13] MEDS: AMLODIPINE BESYLATE 5 MG TAB PO SCH (09:12)
--- NOTE | 2019-07-13 10:34 | Gastrointestinal Consultation ---
Date of Consultation July 13, 2019 Assessment & Plan (1) Lesion of colon: Management of SBO per surgical team. Once SBO is completely resolved and patient is tolerating PO liquids then can start slow bowel prep and arrange for colonoscopy. Please call us once SBO resolve. (2) Small bowel obstruction: History of Present Illness Attending Physician: Vera Banks MD 83 years old female patient with medical history of HTN, DM, DLP presented to the hospital with nausea, vomiting and abdominal pain, found to have SBO. Similar presentation a weeks ago but CT scan showed possible gastroenteritis. She was hydrated and NG placed for deceompresion and being followed by surgery and planned for conservative approach. She is passing flatus today but no BM yet. GI consulted for CT scan showed possible lesion in the transverse colon. She denies any prior Hx of diarrhea or constipation, no rectal bleeding. She had Colonoscopy in 2013 with [facility] for positive FOBT and showed sigmoid diverticulosis and hemorrhoids, no polyps. EGD in 2014 showed HH. Allergies Allergy/AdvReac Type Severity Reaction Status Date / Time Influenza Virus Vaccines Allergy Mild SWELLING Verified 07/12/19 08:28 Home Medications Home Medications Medication Instructions Recorded Confirmed Type Actemra 162 mg IV .Q OTHER WEEK 03/28/18 07/12/19 History alprazolam [Xanax] 0.25 mg PO DAILY PRN 03/28/18 07/12/19 History ascorbic acid (vitamin C) [Vitamin 500 mg PO QAM 03/28/18 07/12/19 History C] atenolol [Tenormin] 50 mg PO BID 03/28/18 07/12/19 History calcium carbonate-vitamin D3 1 tab PO BID 03/28/18 07/12/19 History [Os-Arcadio 500 + D3] escitalopram oxalate [Lexapro] 10 mg PO QAM 03/28/18 07/12/19 History multivitamin 1 tab PO QAM 03/28/18 07/12/19 History rosuvastatin [Crestor] 20 mg PO QAM 03/28/18 07/12/19 History cranberry 400 mg PO QAM 07/07/19 07/12/19 History famotidine [Pepcid] 20 mg PO BID 07/07/19 07/12/19 History linagliptin [Tradjenta] 5 mg PO QAM 07/07/19 07/12/19 History amitriptyline 25 mg PO HS 07/12/19 07/12/19 History amlodipine 5 mg PO DAILY 07/12/19 07/12/19 History esomeprazole magnesium [Nexium] 20 mg PO DAILY 07/12/19 07/12/19 History latanoprost 1 drp OPHTHALMIC (EYE) PM 07/12/19 07/12/19 History ondansetron HCl [Zofran] 4 mg PO Q6H PRN 07/12/19 07/12/19 History tramadol 50 mg PO Q8H PRN 07/12/19 07/12/19 History Patient History Medical History Anxiety Arthritis Cataracts, bilateral CKD (chronic kidney disease), stage III DM type 2 (diabetes mellitus, type 2) Dyslipidemia HTN (hypertension) HX: breast cancer Temporal arteritis Surgical History H/O right mastectomy Jun 2018 History of appendectomy History of cataract surgery S/P LIZBETH-BSO Family History Mother Diabetes Social History Preferred Language: Yakut Communication Ability: Effective Health Analyst Required: No Beliefs That Will Affect Care: None marital status: Current Living Situation: Spouse Other Information That Helps Us Care for You: No Feels Safe at Home: Yes Safety Concerns: Feels Safe At This Time Smoking Status: Never smoker Hx Alcohol Use: No Hx Substance Use: No Review of Systems Constitutional: no fever, no chills, no fatigue and no weight loss Eyes: no eye pain and no worsening vision Ear, Nose, Mouth, Throat: no tinnitus, no dizziness, no nasal discharge and no epistaxis Respiratory: no cough, no dyspnea, no dyspnea on exertion and no wheezing Cardiovascular: no chest pain, no orthopnea, no palpitations and no edema Gastrointestinal: as per Subjective / HPI Genitourinary: no dysuria, no urinary frequency, no urinary incontinence and no hematuria Musculoskeletal: no stiffness and no myalgia Neurologic: no localized weakness, no paralysis, no tremor(s) and no headache(s) Endocrine: no polydipsia and no polyuria Hematologic / Lymphatic: no easy bleeding and no night sweats Physical Exam Constitutional: + well hydrated, cooperative and comfortable Eyes: PERRL, conjunctivae normal, anicteric sclerae ENMT: external ear and nose normal, oropharynx normal Neck: normal visual inspection and trachea midline Respiratory: normal respiratory effort, lungs clear to auscultation Auscultation: no wheezes Cardiovascular: RRR, no murmur, no edema Gastrointestinal (Abdomen): normal bowel sounds, soft, nontender, no hepatosplenomegaly Musculoskeletal: no cyanosis or clubbing, extremities motor strength 5/5 Skin: no rashes, warm and dry Neurologic: awake; no focal motor deficits Motor/Sensory: no tremor Results & Data Vital Signs (Past 12 Hours) Vital Signs Temp Pulse Resp BP Pulse Ox 07/13/19 07:24 36.8 C 78 16 147/69 H 94 07/13/19 00:03 36.8 C 76 18 153/72 H 91 Laboratory Results Laboratory Results - last 24 hr 07/12/19 07/12/19 07/12/19 10:25 18:42 23:54 WBC RBC Hgb Hct MCV MCH MCHC RDW Std Deviation RDW Coeff of Jennifer Plt Count MPV Sodium Potassium Chloride Carbon Dioxide Anion Gap BUN Creatinine Est Cr Clr Drug Dosing Est GFR ( Amer) Est GFR (Non-Af Amer) BUN/Creatinine Ratio Glucose POC Glucose 117 H 118 H Lactate 1.6 Calcium Specimen Hemolysis 07/13/19 07/13/19 07/13/19 05:10 05:10 05:50 WBC 10.76 RBC 3.56 L Hgb 11.1 L Hct 34.8 L MCV 97.8 MCH 31.2 MCHC 31.9 L RDW Std Deviation 46.0 RDW Coeff of Jennifer 12.8 Plt Count 83 L MPV 10.8 H Sodium 139 Potassium 4.2 Chloride 109 H Carbon Dioxide 25 Anion Gap 5.0 BUN 17 Creatinine 1.25 H Est Cr Clr Drug Dosing 29.4 Est GFR ( Amer) 46.1 Est GFR (Non-Af Amer) 39.7 BUN/Creatinine Ratio 13.2 Glucose 116 H POC Glucose 115 H Lactate Calcium 8.0 L Specimen Hemolysis
--- NOTE | 2019-07-13 11:18 | Surgery Progress Note ---
Date of Service July 13, 2019 Assessment & Plan (1) Small bowel obstruction: Patient's symptoms improving since admission NGT with ~200cc output She is starting to pass flatus. No BM yet. Would keep NGT for today Continue NPO with IVF hydration Activity as tolerates Patient seen and examined with Dr. Andino Subjective Patient states she is feeling better. Passing flatus, but no BM yet. Physical Exam Physical Exam: awake Gastrointestinal (Abdomen): Inspection/Auscultation: + abdomen distended (improved) Percussion/Palpation: abdomen soft NGT with 200cc bilious output Results & Data Vital Signs (Past 12 Hours) Vital Signs Temp Pulse Resp BP Pulse Ox 07/13/19 07:24 36.8 C 78 16 147/69 H 94 07/13/19 00:03 36.8 C 76 18 153/72 H 91 PG Care Time/CCT Total # of Minutes Spent Total Time Spent with Patient: Total time spent is greater than 50% in coordination of care (as documented) at patient's floor/unit and/or counseling patient:
--- NOTE | 2019-07-13 13:30 | Hospitalist Progress Note ---
Date of Service July 13, 2019 Assessment & Plan (1) Small bowel obstruction: -Admit to [facility] -Patient presenting from home with reports of increasing abdominal distention, nausea, vomiting, abdominal pain -CT ABD/pelvis showing small bowel obstruction however etiology unclear, possibly due to carcinomatosis (CT also notes bladder, colon, and rib lesions) -Currently no active vomiting and pain is controlled, will hold on NG tube for now -Lactate 1.6 -Appreciate surgery input and recommendation -NG tube has been placed with low suction continued -Continue supportive care with n.p.o., IVF, IV Pepcid, pain and nausea control -Clinically a little bit better (2) Lesion of bladder: Appreciate urology input and recommendation To have outpatient follow-up and probable cystoscopy down the line (3) Lesion of colon: Appreciate GI input and recommendation Will have colonoscopy following recovery from SBO Will need a slow bowel preparation (4) Rib lesion: Could have secondary to metastatic lesion with history of CA breast in the past and suspicion for colon and/or urinary bladder (5) Bilateral hydronephrosis: -CT notes 1 cm bladder lesion and possible transverse colon and rib lesions, bilateral hydronephrosis; possible carcinomatosis as etiology for SBO -will consult urology for input -Likely will need colonoscopy however will defer GI evaluation until SBO resolved -Regarding bilateral hydronephrosis, creatinine is noted to be baseline at 1.4 -Remote history of breast cancer, previously followed with Dr. Fong (6) CKD (chronic kidney disease), stage III: - baseline creat runs in the mid ones - creat noted to be 1.4 today - continue to monitor, avoid nephrotoxic agents when able -Renal function has been improving (7) DM type 2 (diabetes mellitus, type 2): -Hgb A1c 6.9 05/2019 -Hold oral agents and utilize NovoLog per protocol while hospitalized (8) HTN (hypertension): -BP controlled, continue atenolol and amlodipine (9) Temporal arteritis: -Receives Actemra injections every 14 days (10) Dyslipidemia: -Continue statin (11) DVT prophylaxis: -SQ heparin Subjective 07/13 The patient was seen and examined in the medical floor She was admitted with the small bowel obstruction She is a status post NG tube placement with ongoing suction Clinically better with decreasing abdominal swelling and pain Review of Systems Review of Systems: All systems reviewed and are unremarkable except as noted below Gastrointestinal: + abdominal pain and + bloating Physical Exam Physical Exam: Sitting on a chair without any significant symptoms Constitutional: WD/WN, vitals as above Eyes: PERRL, conjunctivae normal, anicteric sclerae ENMT: external ear and nose normal, oropharynx normal Respiratory: normal respiratory effort, lungs clear to auscultation Cardiovascular: Rate/Rhythm: regular rate and regular rhythm Vessels: normal peripheral pulses Extremities: no edema Gastrointestinal (Abdomen): Inspection/Auscultation: + abdomen distended (Semi-firm) and normal bowel sounds (Diminished) Percussion/Palpation: + abdomen tender (Minimally tender on palpation lower abdomen); no hepatosplenomegaly Musculoskeletal: no cyanosis or clubbing, extremities motor strength 5/5 Skin: no rashes, warm and dry Neurologic: PERRL, EOMI, accommodation nl, no face palsy, no dysarthria Psychiatric: A+Ox3, euthymic affect Results & Data Vital Signs (Past 12 Hours) Vital Signs Temp Pulse Resp BP Pulse Ox 07/13/19 07:24 36.8 C 78 16 147/69 H 94 Laboratory Results Short CBC 07/13/19 Range/Units 05:10 WBC 10.76 (4.8-10.8) K/uL Hgb 11.1 L (12.0-16.0) g/dL Hct 34.8 L (37-47) % Plt Count 83 L (130-400) K/uL BMP 07/13/19 05:10 Sodium 139 Potassium 4.2 Chloride 109 H Carbon Dioxide 25 BUN 17 Creatinine 1.25 H Glucose 116 H Calcium 8.0 L Medications Administered Current Inpatient Medications Acetaminophen (Tylenol) 650 mg PO Q4H PRN PRN Reason: pain/fever Stop: 08/11/19 12:45 Amitriptyline HCl (Elavil) 25 mg PO HS NENA Stop: 08/11/19 20:59 Last Admin: 07/12/19 21:14 Dose: 25 mg Documented by: Amlodipine Besylate (Norvasc) 5 mg PO DAILY [facility] Stop: 08/12/19 08:59 Last Admin: 07/13/19 09:12 Dose: Not Given Documented by: Atenolol (Tenormin) 50 mg PO BID [facility] Stop: 08/11/19 20:59 Last Admin: 07/13/19 09:12 Dose: Not Given Documented by: Dextrose (Dextrose 50%) 25 - 50 ml IV UD PRN; Protocol PRN Reason: Hypoglycemia Protocol Stop: 08/11/19 12:45 Escitalopram Oxalate (Lexapro Tab) 10 mg PO QAM NENA Stop: 08/12/19 08:59 Last Admin: 07/13/19 09:12 Dose: Not Given Documented by: Glucagon (Glucagen) 1 mg SQ UD PRN; Protocol PRN Reason: Hypoglycemia Protocol Stop: 08/11/19 12:45 Glucose (Dex4 Glucose) 4 - 8 tabs PO UD PRN; Protocol PRN Reason: Hypoglycemia Protocol Stop: 08/11/19 12:45 Glucose (Glucose 40%) 15 - 30 gm PO UD PRN; Protocol PRN Reason: Hypoglycemia Protocol Stop: 08/11/19 12:45 Heparin Sodium (Porcine) (Heparin Sodium (Porcine)) 5,000 units SQ Q8 NENA Stop: 08/11/19 13:59 Last Admin: 07/13/19 06:10 Dose: 5,000 units Documented by: Famotidine 20 mg/ Syringe 5 mls @ 2.5 mls/min IV BID NENA Stop: 08/11/19 12:45 Last Admin: 07/13/19 09:12 Dose: 2.5 mls/min Documented by: Sodium Chloride (Nss 1000ml) 1,000 mls @ 100 mls/hr IV .Q10H [facility] Stop: 08/11/19 12:45 Last Admin: 07/13/19 09:12 Dose: 100 mls/hr Documented by: Acetaminophen (Ofirmev) 1,000 mg in 100 mls @ 400 mls/hr IV Q8H PRN PRN Reason: Pain or Fever Stop: 07/15/19 23:57 Last Infusion: 07/13/19 00:27 Dose: Infused Documented by: Insulin Aspart (Novolog Flexpen) 0 units SC Q6 NENA Stop: 08/11/19 16:29 Last Admin: 07/13/19 12:06 Dose: Not Given Documented by: Latanoprost (Xalatan Oph) 1 drops OP PM [facility] Stop: 08/11/19 20:59 Last Admin: 07/12/19 21:13 Dose: Not Given Documented by: Miscellaneous (Carbohydrates For Hypoglycemia) 15 - 30 gm PO UD PRN PRN Reason: Hypoglycemia Protocol Stop: 08/11/19 12:45 Morphine Sulfate (Morphine Sulfate) 3 mg IV Q4H PRN PRN Reason: Pain Stop: 07/26/19 12:45 Last Admin: 07/12/19 21:20 Dose: 3 mg Documented by: Ondansetron HCl (Zofran) 4 mg IV Q6H PRN PRN Reason: nausea Stop: 08/11/19 12:45 Phenol (Chloraseptic 1.4% [place]) 1 sprays MT PRN PRN PRN Reason: Sore Throat Stop: 08/11/19 15:31 Last Admin: 07/12/19 21:34 Dose: 1 sprays Documented by: Rosuvastatin Calcium (Crestor) [facility] [place]: 08/12/19 08:59 Last Admin: 07/13/19 09:12 Dose: Not Given Documented by:
[2019-07-13] MEDS: AMITRIPTYLINE HCL 25 MG TAB PO SCH (21:03)
[2019-07-13] MEDS: LATANOPROST 0.005% OP SOLN 2.5 ML BTL OP SCH (21:03)
[2019-07-14] MEDS: INSULIN ASPART 100 UNITS/ML 3 ML PEN SC SCH ×5 (00:18→20:59)
[2019-07-14] MEDS: D5W AND NSS 1,000 ML IV SCH ×2 (00:21→12:18)
[2019-07-14] MEDS: HEPARIN SOD 5,000 UNIT/0.5 ML VIAL SQ SCH ×3 (05:30→21:00)
[2019-07-14 07:34] LABS: BUN Creatinine Ratio 10.8 (10-20); Creatinine Clr Calc Pharmacy 29.7 ml/min; Est GFR (African American) 46.5; Est GFR (Non-African American) 40.1
[2019-07-14 07:35] LABS: Hematocrit (blood only) 32.5 % (37-47); Hemoglobin 10.9 g/dL (12.0-16.0); Mean Corpuscular Hgb Conc 33.5 g/dL (32-36); Mean Corpuscular Volume 95.3 fL (80-100); Platelet Count 134 K/uL (130-400); RDW Coefficient of Variation 12.7 % (11.5-14.5); RDW Standard Deviation 43.3 fL (36.4-46.3); Red Blood Count 3.41 M/uL (4.2-5.4); White Blood Count 10.01 K/uL (4.8-10.8)
[2019-07-14 07:39] LABS: Basophils # (auto) 0.02 K/uL (0-0.2); Basophils % (auto) 0.2 %; Eosinophils # (auto) 0.34 K/uL (0-0.5); Eosinophils % (auto) 3.4 %; Immature Granulocytes # (auto) 0.02 K/uL (0.00-0.02); Immature Granulocytes % (auto) 0.2 %; Lymphocytes # (auto) 0.83 K/uL (1.2-3.4); Lymphocytes % (auto) 8.3 %; Monocytes # (auto) 0.95 K/uL (0.11-0.59); Monocytes % (auto) 9.5 %; Neutrophils # (auto) 7.85 K/uL (1.4-6.5); Neutrophils % (auto) 78.4 %
--- NOTE | 2019-07-14 09:00 | Surgery Progress Note ---
Date of Service July 14, 2019 Assessment & Plan (1) Small bowel obstruction: 07/14/19 Patient overall feeling better NGT with 120cc output She continues to pass flatus, but no BM yet Will obtain KUB this AM and follow up on results Encourage activity No surgical intervention at this time patient seen and examined with Dr. Andino Subjective Patient overall feels okay. She is passing gas, but no BM yet. Physical Exam Physical Exam: awake/alert Gastrointestinal (Abdomen): Inspection/Auscultation: + abdomen distended (improved) Percussion/Palpation: abdomen soft; abdomen nontender NGT with light brown/green output Results & Data Vital Signs (Past 12 Hours) Vital Signs Temp Pulse Resp BP Pulse Ox 07/14/19 07:42 36.7 C 79 16 146/73 H 97 07/13/19 23:25 37.3 C 93 H 16 123/62 92 PG Care Time/CCT Total # of Minutes Spent Total Time Spent with Patient: Total time spent is greater than 50% in coordination of care (as documented) at patient's floor/unit and/or counseling patient:
--- NOTE | 2019-07-14 09:06 | XRay Report ---
XR KUB/Abdomen 1 view CLINICAL HISTORY: FOLLOW UP SBO COMPARISON STUDY: 07/04/2019 FINDINGS: The soft tissues, psoas shadows, renal outlines and intestinal gas pattern appear normal. T here is no evidence for bowel obstruction. No abnormal abdominal calcifications are seen. Nasogastric tube within the gastric fundus IMPRESSION: Nonobstructive bowel pattern. Nasogastric tube within the gastric fundus. ACT 112: Negative or not required by law. The above report was generated using voice recognition software. It may contain grammatical, syntax or spelling errors. Electronically signed by: Steven Douglas M.D. 07/14/2019 9:05 AM
[2019-07-14] MEDS: ROSUVASTATIN CALCIUM 20 MG TAB PO SCH (09:14)
[2019-07-14] MEDS: AMLODIPINE BESYLATE 5 MG TAB PO SCH (09:14)
[2019-07-14] MEDS: ESCITALOPRAM OXALATE 10 MG TAB PO SCH (09:14)
[2019-07-14] MEDS: ATENOLOL 50 MG TABLET PO SCH ×2 (09:14→20:59)
[2019-07-14] MEDS: FAMOTIDINE 20 MG in SYRINGE 3 ML IV SCH ×2 (09:17→20:58)
--- NOTE | 2019-07-14 10:12 | Urology Progress Note ---
Date of Service July 14, 2019 Assessment & Plan (1) Bilateral hydronephrosis: (2) Lesion of bladder: 83 yo F with small bowel obstruction, bilateral hydronephrosis, possible bladder lesion. Doing well today. Per general surgery, no surgical intervention at this time for SBO. Creatinine 1.24, stable. Plan to f/u outpatient with Dr. Olivia as scheduled on 07/29/19 for further evaluation of hydronephrosis and possible bladder lesion. Thank you for allowing us to participate in the acute care of Mrs. Contreras. Please reconsult us with additional questions, concerns or changes in patient status. Subjective 83 yo F admitted with small bowel obstruction. Awake, sitting up in bedside chair. NGT intact. Voiding spontaneously. No urinary urgency, dysuria, or hematuria. No difficulty emptying. Review of Systems Review of Systems: All systems reviewed & are unremarkable except as noted in HPI & below Physical Exam Physical Exam: NAD Normal respiratory effort, RA NGT intact, draining pompa output Skin warm and dry AOx3 Results & Data Vital Signs (Past 12 Hours) Vital Signs Temp Pulse Resp BP Pulse Ox 07/14/19 07:42 36.7 C 79 16 146/73 H 97 07/13/19 23:25 37.3 C 93 H 16 123/62 92 PG Care Time/CCT Total # of Minutes Spent Total Time Spent with Patient: Total time spent is greater than 50% in coordination of care (as documented) at patient's floor/unit and/or counseling patient:
--- NOTE | 2019-07-14 11:48 | Gastroenterology Progress Note ---
Date of Service July 14, 2019 Assessment & Plan (1) Small bowel obstruction: Management of SBO by surgery and primary services (reviewed recent notes) and discussed with Dr. Banks. Eventual removal of NG. If does well tolerating clear liquids, then will prep for colonoscopy which will tentatively be arranged for 07/17/19. Present on Admission?: Yes Supervising Physician Co-Signing Physician Notes Late entry: Patient was seen and examined on 07/14 with RACHELLE Swift whose note reflects our findings and plan. Subjective Ms. Contreras is an 83 yo F admitted on 07/12 with a small bowel obstruction.Surgery following. Improvement in distention and pain with NG. Now with small NG drainage. Awake, alert, oriented. She and her daughter at the bedside tell me that she is much better but still with some abdominal distention. NGT intact. Review of Systems Constitutional: no fever, no chills, no body aches, no fatigue and no weakness Ear, Nose, Mouth, Throat: no problem reported Respiratory: no cough, no chest congestion and no dyspnea Cardiovascular: no chest pain, no syncope and no edema Gastrointestinal: + abdominal pain (much improved) and + bloating (still so me); no nausea and no vomiting Genitourinary: no dysuria, no urinary frequency and no urinary hesitancy Integumentary: no rash and no lesions Neurologic: no gait abnormality, no syncope, no behavioral changes and no problem reported Psychiatric: + change in appetite; no depression, no hopelessness, no irritability and no anxiety Hematologic / Lymphatic: no easy bleeding Physical Exam Constitutional: WD/WN, vitals as above Eyes: PERRL, conjunctivae normal, anicteric sclerae ENMT: external ear and nose normal, oropharynx normal Neck: trachea midline, no thyromegaly Respiratory: normal respiratory effort, lungs clear to auscultation Cardiovascular: RRR, no murmur, no edema Gastrointestinal (Abdomen): Inspection/Auscultation: + abdomen distended (mild) and normal bowel sounds; no abdominal edema and no hyperactive bowel sounds Percussion/Palpation: + abdomen tender (minimal, diffuse) not taunt Skin: no rashes, warm and dry Neurologic: patellar DTR's 2+ bilat, sensation intact Psychiatric: A+Ox3, euthymic affect Lymphatic: no cervical or axillary lymphadenopathy Results & Data Vital Signs (Past 12 Hours) Vital Signs Temp Pulse Resp BP Pulse Ox 07/14/19 07:42 36.7 C 79 16 146/73 H 97 Laboratory Results WBC 10, Hb 10, Hct 32, Platelts 132, Na 139, K 4.0, BUN 13, Cr 124. Diagnostic Findings KUB this morning: Nonobstructive bowel pattern. Nasogastric tube within the gastric fundus. CT 07/12/19 1. Interval development of a small bowel obstruction with transition point within the pelvis. The etiology for this obstruction is not clear on this exam. Increase in ascites and mesenteric infiltration. This could be correlated with lactate to exclude the possibility of bowel ischemia but no pneumatosis, free air or portal venous gas. Peritoneal carcinomatosis is also within the differential. Subtle omental nodularity. Findings discussed with Dr. Jolly at time of dictation. 2. Possible annular lesion within the distal transverse colon. Correlation with nonemergent colonoscopy is recommended. 3. Bilateral hydronephrosis of uncertain etiology. 4. Moderate gallbladder wall thickening, a nonspecific finding. 5. 1 cm enhancing lesion along the left lateral aspect of the bladder which likely reflects a urothelial lesion. 6. Possible sclerotic lesion within the posterior right 10th rib. Metastatic disease is within the differential.
[2019-07-14] MEDS ORDERED: OR MISCELLANEOUS MED XX ONE (15:32)
--- NOTE | 2019-07-14 16:10 | Hospitalist Progress Note ---
Date of Service July 14, 2019 Assessment & Plan (1) Small bowel obstruction: -Admit to [facility] -Patient presenting from home with reports of increasing abdominal distention, nausea, vomiting, abdominal pain -CT ABD/pelvis showing small bowel obstruction however etiology unclear, possibly due to carcinomatosis (CT also notes bladder, colon, and rib lesions) -Currently no active vomiting and pain is controlled, will hold on NG tube for now -Lactate 1.6 -Appreciate surgery input and recommendation -NG tube has been placed with low suction continued -Continue supportive care with n.p.o., IVF, IV Pepcid, pain and nausea control -Clinically a little bit better -KUB shows nonobstructive bowel pattern -Discontinue NG tube (2) Lesion of bladder: Appreciate urology input and recommendation To have outpatient follow-up and probable cystoscopy down the line Appointment with Dr. Olivia as an outpatient July for further evaluation of hydronephrosis and suspected bladder lesion (3) Lesion of colon: Appreciate GI input and recommendation Will have colonoscopy following recovery from SBO Will need a slow bowel preparation Likely colonoscopy on (4) Rib lesion: Could have secondary to metastatic lesion with history of CA breast in the past and suspicion for colon and/or urinary bladder (5) Bilateral hydronephrosis: -CT notes 1 cm bladder lesion and possible transverse colon and rib lesions, bilateral hydronephrosis; possible carcinomatosis as etiology for SBO -will consult urology for input -Likely will need colonoscopy however will defer GI evaluation until SBO resolved -Regarding bilateral hydronephrosis, creatinine is noted to be baseline at 1.4 -Remote history of breast cancer, previously followed with Dr. Fong (6) CKD (chronic kidney disease), stage III: - baseline creat runs in the mid ones - creat noted to be 1.4 today - continue to monitor, avoid nephrotoxic agents when able -Renal function has been improving (7) DM type 2 (diabetes mellitus, type 2): -Hgb A1c 6.9 05/2019 -Hold oral agents and utilize NovoLog per protocol while hospitalized (8) HTN (hypertension): -BP controlled, continue atenolol and amlodipine (9) Temporal arteritis: -Receives Actemra injections every 14 days (10) Dyslipidemia: -Continue statin (11) DVT prophylaxis: -SQ heparin Subjective 07/13 The patient was seen and examined in the medical floor She was admitted with the small bowel obstruction She is a status post NG tube placement with ongoing suction Clinically better with decreasing abdominal swelling and pain 07/14 The patient was seen and examined in medical floor She has been feeling a little bit better today Denies any abdominal pain nausea and or vomiting Awaiting KUB before discontinuing NG tube Review of Systems Review of Systems: All systems reviewed and are unremarkable except as noted below Gastrointestinal: + abdominal pain and + bloating Physical Exam Physical Exam: Sitting on a chair outside bed with minimal discomfort secondary to NG tube Constitutional: WD/WN, vitals as above Eyes: PERRL, conjunctivae normal, anicteric sclerae ENMT: external ear and nose normal, oropharynx normal Respiratory: normal respiratory effort, lungs clear to auscultation Cardiovascular: Rate/Rhythm: regular rate and regular rhythm Vessels: normal peripheral pulses Extremities: no edema Gastrointestinal (Abdomen): Inspection/Auscultation: + abdomen distended (Soft) and normal bowel sounds (Diminished) Percussion/Palpation: + abdomen tender (Minimally tender on palpation lower abdomen); no hepatosplenomegaly Musculoskeletal: no cyanosis or clubbing, extremities motor strength 5/5 Skin: no rashes, warm and dry Neurologic: PERRL, EOMI, accommodation nl, no face palsy, no dysarthria Psychiatric: A+Ox3, euthymic affect Lymphatic: no cervical or axillary lymphadenopathy Results & Data Vital Signs (Past 12 Hours) Vital Signs Temp Pulse Resp BP Pulse Ox 07/14/19 07:42 36.7 C 79 16 146/73 H 97 Laboratory Results Short CBC 07/14/19 Range/Units 06:14 WBC 10.01 (4.8-10.8) K/uL Hgb 10.9 L (12.0-16.0) g/dL Hct 32.5 L (37-47) % Plt Count 134 D (130-400) K/uL BMP 07/14/19 06:14 Sodium 139 Potassium 4.0 Chloride 109 H Carbon Dioxide 16 L BUN 13 Creatinine 1.24 H Glucose 153 H Calcium 8.0 L Medications Administered Current Inpatient Medications Acetaminophen (Tylenol) 650 mg PO Q4H PRN PRN Reason: pain/fever Stop: 08/11/19 12:45 Amitriptyline HCl (Elavil) 25 mg PO HS NENA Stop: 08/11/19 20:59 Last Admin: 07/13/19 21:03 Dose: 25 mg Documented by: Amlodipine Besylate (Norvasc) 5 mg PO DAILY [facility] Stop: 08/12/19 08:59 Last Admin: 07/14/19 09:14 Dose: Not Given Documented by: Atenolol (Tenormin) 50 mg PO BID [facility] Stop: 08/11/19 20:59 Last Admin: 07/14/19 09:14 Dose: Not Given Documented by: Dextrose (Dextrose 50%) 25 - 50 ml IV UD PRN; Protocol PRN Reason: Hypoglycemia Protocol Stop: 08/11/19 12:45 Escitalopram Oxalate (Lexapro Tab) 10 mg PO QAM [facility] Stop: 08/12/19 08:59 Last Admin: 07/14/19 09:14 Dose: Not Given Documented by: Glucagon (Glucagen) 1 mg SQ UD PRN; Protocol PRN Reason: Hypoglycemia Protocol Stop: 08/11/19 12:45 Glucose (Dex4 Glucose) 4 - 8 tabs PO UD PRN; Protocol PRN Reason: Hypoglycemia Protocol Stop: 08/11/19 12:45 Glucose (Glucose 40%) 15 - 30 gm PO UD PRN; Protocol PRN Reason: Hypoglycemia Protocol Stop: 08/11/19 12:45 Heparin Sodium (Porcine) (Heparin Sodium (Porcine)) 5,000 units SQ Q8 NENA Stop: 08/11/19 13:59 Last Admin: 07/14/19 13:14 Dose: 5,000 units Documented by: Famotidine 20 mg/ Syringe 5 mls @ 2.5 mls/min IV BID [facility] Stop: 08/11/19 12:45 Last Admin: 07/14/19 09:17 Dose: 2.5 mls/min Documented by: Acetaminophen (Ofirmev) 1,000 mg in 100 mls @ 400 mls/hr IV Q8H PRN PRN Reason: Pain or Fever Stop: 07/15/19 23:57 Last Infusion: 07/13/19 21:20 Dose: Infused Documented by: Dextrose/Sodium Chloride (D5w And Nss) 1,000 mls @ 80 mls/hr IV .[id number] [facility] Stop: 08/12/19 23:44 Last Admin: 07/14/19 12:18 Dose: 80 mls/hr Documented by: Insulin Aspart (Novolog Flexpen) 0 units SC Q6 [facility] Stop: 08/11/19 16:29 Last Admin: 07/14/19 12:20 Dose: 1 units Documented by: Latanoprost (Xalatan Oph) 1 drops OP PM [facility] Stop: 08/11/19 20:59 Last Admin: 07/13/19 21:03 Dose: Not Given Documented by: Miscellaneous (Carbohydrates For Hypoglycemia) 15 - 30 gm PO UD PRN PRN Reason: Hypoglycemia Protocol Stop: 08/11/19 12:45 Morphine Sulfate (Morphine Sulfate) 3 mg IV Q4H PRN PRN Reason: Pain Stop: 07/26/19 12:45 Last Admin: 07/12/19 21:20 Dose: 3 mg Documented by: Paul (Tocilizumab ) Non-Formulary Patient's Own Med 1 ea SQ TODAY@1700 ONE Stop: 07/14/19 17:01 Ondansetron HCl (Zofran) 4 mg IV Q6H PRN PRN Reason: nausea Stop: 08/11/19 12:45 Phenol (Chloraseptic 1.4% [place]) 1 sprays MT PRN PRN PRN Reason: Sore Throat Stop: 08/11/19 15:31 Last Admin: 07/12/19 21:34 Dose: 1 sprays Documented by: Rosuvastatin Calcium (Crestor) 20 mg PO QAM [facility] Stop: 08/12/19 08:59 Last Admin: 07/14/19 09:14 Dose: Not Given Documented by:
[2019-07-14] MEDS ORDERED: Nursing to Pharmacy Communication ONE (16:59)
[2019-07-14] MEDS ORDERED: ACTEMRA SQ ONE (17:00)
[2019-07-14] MEDS: LATANOPROST 0.005% OP SOLN 2.5 ML BTL OP SCH (20:59)
[2019-07-14] MEDS: AMITRIPTYLINE HCL 25 MG TAB PO SCH (20:59)
[2019-07-15] MEDS: HEPARIN SOD 5,000 UNIT/0.5 ML VIAL SQ SCH ×3 (05:19→21:49)
--- NOTE | 2019-07-15 07:55 | Surgery Progress Note ---
Date of Service July 15, 2019 Assessment & Plan (1) Small bowel obstruction: 07/15/19 Patient feeling well after NGT removal yesterday Currently on clear liquids Passing flatus, but no BM yet Can consider advancing diet today once patient has more meaningful bowel function Patient seen and examined with Dr. Andino Subjective Patient says she is feeling well. Passing flatus. Feels like she may be able to have a BM this AM. Physical Exam Physical Exam: awake/alert Gastrointestinal (Abdomen): Percussion/Palpation: abdomen soft Results & Data Vital Signs (Past 12 Hours) Vital Signs Temp Pulse Resp BP Pulse Ox 07/14/19 22:54 37.2 C 79 16 161/67 H 92 PG Care Time/CCT Total # of Minutes Spent Total Time Spent with Patient: Total time spent is greater than 50% in coordination of care (as documented) at patient's floor/unit and/or counseling patient:
[2019-07-15] MEDS: ROSUVASTATIN CALCIUM 20 MG TAB PO SCH (09:05)
[2019-07-15] MEDS: ESCITALOPRAM OXALATE 10 MG TAB PO SCH (09:05)
[2019-07-15] MEDS: AMLODIPINE BESYLATE 5 MG TAB PO SCH (09:06)
[2019-07-15] MEDS: ATENOLOL 50 MG TABLET PO SCH ×2 (09:06→20:04)
[2019-07-15] MEDS: INSULIN ASPART 100 UNITS/ML 3 ML PEN SC SCH ×4 (09:09→21:49)
[2019-07-15] MEDS: FAMOTIDINE 20 MG in SYRINGE 3 ML IV SCH ×2 (09:14→20:07)
--- NOTE | 2019-07-15 09:16 | Communication Note ---
Date of Service: July 15, 2019 Pt not formally evaluated today. Sending urine cytology to r/o high grade urothelial carcinoma. Plan to keep recommendations as previously stated. C lose followup already arranged with Dr. Olivia after resolution of GI concerns.
--- NOTE | 2019-07-15 12:28 | Gastroenterology Progress Note ---
Date of Service July 15, 2019 Assessment & Plan (1) Small bowel obstruction: Doing well on clear liquids po. Will start prep early tomorrow morning - no stimulant laxatives, just Golytely. Pt to prep all day tomorrow. Enc to ask for medication if nauseated, but stop if severe pain or vomiting. Will plan for colonoscopy on 06/16/20. Please keep pt on clear liqs po through tomorrow and NPO after midnight tomorrow night. Present on Admission?: Yes Supervising Physician Co-Signing Physician Notes I performed a history and physical examination of the patient, including specifically on physical exam - soft, nontender abdomen. I have discussed the patient's management with Mariah. Please refer to the nurse practitioner's note for the documented findings and plan of care. Passing flatus and small BM. Current SBO resolved. Slow low volume bowel prep tomorrow and colonoscopy on . Subjective Pt tells me today that her abdomen feels better, that she is passing gas, no nausea or vomiting. No BM yet. NG removed yesterday and had a clear liq tray x 2 so far w/o any increased symptoms. Review of Systems Review of Systems: ROS: Gen: Denies weakness, fevers Eyes: No eye redness, or pain, no recent vision changes Resp: No SOB, no cough Cardio: No palpitations/irregular beats, no chest pain : Denies pain on urination Skin: No jaundice, itching or new rashes Gastrointestinal: + abdominal pain (much improved) and + bloating (still some); no nausea and no vomiting Psychiatric: + change in appetite; no depression, no hopelessness, no irr itability and no anxiety Physical Exam Constitutional: WD/WN, vitals as above Eyes: PERRL, conjunctivae normal, anicteric sclerae ENMT: external ear and nose normal, oropharynx normal Neck: trachea midline, no thyromegaly Respiratory: normal respiratory effort, lungs clear to auscultation Cardiovascular: RRR, no murmur, no edema Gastrointestinal (Abdomen): Inspection/Auscultation: + abdomen distended (mild, improved compared to yesterday) and normal bowel sounds; no abdominal edema and no hyperactive bowel sounds Percussion/Palpation: abdomen nontender (mentioned mild intermittent RUQ pain but not tender there on palpation) Skin: no rashes, warm and dry Neurologic: PERRL, EOMI, accommodation nl, no face palsy, no dysarthria Psychiatric: A+Ox3, euthymic affect Lymphatic: no cervical or axillary lymphadenopathy Results & Data Vital Signs (Past 12 Hours) Vital Signs Temp Pulse Resp BP Pulse Ox 07/15/19 08:23 36.7 C 101 H 18 164/89 H 93
--- NOTE | 2019-07-15 13:56 | Hospitalist Progress Note ---
Date of Service July 15, 2019 Assessment & Plan (1) Small bowel obstruction: -Admit to [facility] -Patient presenting from home with reports of increasing abdominal distention, nausea, vomiting, abdominal pain -CT ABD/pelvis showing small bowel obstruction however etiology unclear, possibly due to carcinomatosis (CT also notes bladder, colon, and rib lesions) -Currently no active vomiting and pain is controlled, will hold on NG tube for now -Lactate 1.6 -Appreciate surgery input and recommendation -NG tube has been placed with low suction continued -Continue supportive care with n.p.o., IVF, IV Pepcid, pain and nausea control -Clinically a little bit better -KUB shows nonobstructive bowel pattern -Clinically a lot better today and tolerating clears orally -We will start bowel prep from tomorrow for colonoscopy on (2) Lesion of bladder: Appreciate urology input and recommendation To have outpatient follow-up and probable cystoscopy down the line Appointment with Dr. Olivia as an outpatient on 29 July for further evalu ation of hydronephrosis and suspected bladder lesion (3) Lesion of colon: Appreciate GI input and recommendation Will have colonoscopy following recovery from SBO Has been tolerating clears orally and will start bowel preparation from tomorrow Colonoscopy on (4) Rib lesion: Could have secondary to metastatic lesion with history of CA breast in the past and suspicion for colon and/or urinary bladder (5) Bilateral hydronephrosis: -CT notes 1 cm bladder lesion and possible transverse colon and rib lesions, bilateral hydronephrosis; possible carcinomatosis as etiology for SBO -will consult urology for input -Likely will need colonoscopy however will defer GI evaluation until SBO resolved -Regarding bilateral hydronephrosis, creatinine is noted to be baseline at 1.4 -Remote history of breast cancer, previously followed with Dr. Fong (6) CKD (chronic kidney disease), stage III: - baseline creat runs in the mid ones - creat noted to be 1.4 today - continue to monitor, avoid nephrotoxic agents when able -Renal function has been improving (7) DM type 2 (diabetes mellitus, type 2): -Hgb A1c 6.9 05/2019 -Hold oral agents and utilize NovoLog per protocol while hospitalized (8) HTN (hypertension): -BP remains elevated at around 160 systolic and 89 diastolic -We will continue current medications (9) Temporal arteritis: -Receives Actemra injections every 14 days (10) Dyslipidemia: -Continue statin (11) DVT prophylaxis: -SQ heparin Subjective 07/13 The patient was seen and examined in the medical floor She was admitted with the small bowel obstruction She is a status post NG tube placement with ongoing suction Clinically better with decreasing abdominal swelling and pain 07/14 The patient was seen and examined in medical floor She has been feeling a little bit better today Denies any abdominal pain nausea and or vomiting Awaiting KUB before discontinuing NG tube 07/15 The patient was seen and examined today in medical floor Her KUB did show no obstruction and the NG tube has been out since yesterday She has been tolerating clears orally Denies any significant symptoms Review of Systems Review of Systems: All systems reviewed and are unremarkable except as noted below Gastrointestinal: + abdominal pain and + bloating Physical Exam Physical Exam: Sitting on a chair outside bed comfortably Constitutional: WD/WN, vitals as above Eyes: PERRL, conjunctivae normal, anicteric sclerae ENMT: external ear and nose normal, oropharynx normal Respiratory: normal respiratory effort, lungs clear to auscultation Cardiovascular: Rate/Rhythm: regular rate and regular rhythm Vessels: normal peripheral pulses Extremities: no edema Gastrointestinal (Abdomen): Inspection/Auscultation: + abdomen distended (Minimal distention) and normal bowel sounds (Diminished) Percussion/Palpation: + abdomen tender (Minimally tender on palpation lower abdomen); no hepatosplenomegaly Musculoskeletal: no cyanosis or clubbing, extremities motor strength 5/5 Skin: no rashes, warm and dry Neurologic: PERRL, EOMI, accommodation nl, no face palsy, no dysarthria Psychiatric: A+Ox3, euthymic affect Lymphatic: no cervical or axillary lymphadenopathy Results & Data Vital Signs (Past 12 Hours) Vital Signs Temp Pulse Resp BP Pulse Ox 07/15/19 08:23 36.7 C 101 H 18 164/89 H 93 Medications Administered Current Inpatient Medications Acetaminophen (Tylenol) 650 mg PO Q4H PRN PRN Reason: pain/fever Stop: 08/11/19 12:45 Last Admin: 07/14/19 21:04 Dose: 650 mg Documented by: Amitriptyline HCl (Elavil) 25 mg PO HS NENA Stop: 08/11/19 20:59 Last Admin: 07/14/19 20:59 Dose: 25 mg Documented by: Amlodipine Besylate (Norvasc) 5 mg PO DAILY [facility] Stop: 08/12/19 08:59 Last Admin: 07/15/19 09:06 Dose: 5 mg Documented by: Atenolol (Tenormin) 50 mg PO BID [facility] Stop: 08/11/19 20:59 Last Admin: 07/15/19 09:06 Dose: 50 mg Documented by: Dextrose (Dextrose 50%) 25 - 50 ml IV UD PRN; Protocol PRN Reason: Hypoglycemia Protocol Stop: 08/11/19 12:45 Escitalopram Oxalate (Lexapro Tab) 10 mg PO QAM [facility] Stop: 08/12/19 08:59 Last Admin: 07/15/19 09:05 Dose: 10 mg Documented by: Glucagon (Glucagen) 1 mg SQ UD PRN; Protocol PRN Reason: Hypoglycemia Protocol Stop: 08/11/19 12:45 Glucose (Dex4 Glucose) 4 - 8 tabs PO UD PRN; Protocol PRN Reason: Hypoglycemia Protocol Stop: 08/11/19 12:45 Glucose (Glucose 40%) 15 - 30 gm PO UD PRN; Protocol PRN Reason: Hypoglycemia Protocol Stop: 08/11/19 12:45 Heparin Sodium (Porcine) (Heparin Sodium (Porcine)) 5,000 units SQ Q8 [facility] Stop: 08/11/19 13:59 Last Admin: 07/15/19 13:16 Dose: 5,000 units Documented by: Famotidine 20 mg/ Syringe 5 mls @ 2.5 mls/min IV BID [facility] Stop: 08/11/19 12:45 Last Admin: 07/15/19 09:14 Dose: 2.5 mls/min Documented by: Acetaminophen (Ofirmev) 1,000 mg in 100 mls @ 400 mls/hr IV Q8H PRN PRN Reason: Pain or Fever Stop: 07/15/19 23:57 Last Infusion: 07/13/19 21:20 Dose: Infused Documented by: Insulin Aspart (Novolog Flexpen) 0 units SC ACHS [facility] Stop: 08/12/19 23:48 Last Admin: 07/15/19 13:15 Dose: 1 units Documented by: Latanoprost (Xalatan Oph) 1 drops OP PM [facility] Stop: 08/11/19 20:59 Last Admin: 07/14/19 20:59 Dose: 1 drops Documented by: Miscellaneous (Carbohydrates For Hypoglycemia) 15 - 30 gm PO UD PRN PRN Reason: Hypoglycemia Protocol Stop: 08/11/19 12:45 Morphine Sulfate (Morphine Sulfate) 3 mg IV Q4H PRN PRN Reason: Pain Stop: 07/26/19 12:45 Last Admin: 07/12/19 21:20 Dose: 3 mg Documented by: Ondansetron HCl (Zofran) 4 mg IV Q6H PRN PRN Reason: nausea Stop: 08/11/19 12:45 Phenol (Chloraseptic 1.4% [place]) 1 sprays MT PRN PRN PRN Reason: Sore Throat Stop: 08/11/19 15:31 Last Admin: 07/12/19 21:34 Dose: 1 sprays Documented by: Polyethylene Glycol/Electrolytes (Golytely) 8 dose PO TODAY@0900 [facility] Stop: 07/16/19 23:59 Rosuvastatin Cal[facility]) [facility] [place] Stop: 08/12/19 08:59 Last Admin: 07/15/19 09:05 Dose: 20 mg Documented by:
[2019-07-15] MEDS: ONDANSETRON INJ 2 MG/ML 2 ML VIAL IV PRN (17:34)
[2019-07-15] MEDS: AMITRIPTYLINE HCL 25 MG TAB PO SCH (20:03)
[2019-07-15] MEDS: LATANOPROST 0.005% OP SOLN 2.5 ML BTL OP SCH (20:04)
[2019-07-16] MEDS: HEPARIN SOD 5,000 UNIT/0.5 ML VIAL SQ SCH ×3 (05:53→21:46)
[2019-07-16] MEDS ORDERED: LAVAGE SOLUTION 4000ML PO SCH (09:00)
[2019-07-16] MEDS: AMLODIPINE BESYLATE 5 MG TAB PO SCH (09:04)
[2019-07-16] MEDS: ESCITALOPRAM OXALATE 10 MG TAB PO SCH (09:04)
[2019-07-16] MEDS: ATENOLOL 50 MG TABLET PO SCH ×2 (09:04→21:47)
[2019-07-16] MEDS: ROSUVASTATIN CALCIUM 20 MG TAB PO SCH (09:04)
[2019-07-16] MEDS: FAMOTIDINE 20 MG in SYRINGE 3 ML IV SCH ×2 (09:04→21:46)
[2019-07-16] MEDS: INSULIN ASPART 100 UNITS/ML 3 ML PEN SC SCH ×4 (09:05→21:50)
--- NOTE | 2019-07-16 09:14 | Surgery Progress Note ---
Date of Service July 16, 2019 Assessment & Plan (1) Small bowel obstruction: Small bowel obstruction is clinically resolved. She is going to get prepped today for colonoscopy tomorrow by GI regarding the questionable colonic lesion. We will continue to follow for now. Subjective Patient feeling okay. Small amount of right mid abdominal discomfort from time to time but overall feeling well. Tolerating liquids no nausea or vomiting. Positive bowel movements. Physical Exam Physical Exam: Alert and oriented no acute distress Abdomen is soft. Nondistended. Nontender. Positive bowel sounds. Results & Data Vital Signs (Past 12 Hours) Vital Signs Temp Pulse Pulse Resp BP Pulse Ox 07/16/19 08:19 85 18 133/71 94 07/15/19 23:55 37.5 C 07/15/19 23:50 37.8 C H 87 18 131/61 93 PG Care Time/CCT Total # of Minutes Spent Total Time Spent with Patient: Total time spent is greater than 50% in coordination of care (as documented) at patient's floor/unit and/or counseling patient:
[2019-07-16] MEDS: ONDANSETRON INJ 2 MG/ML 2 ML VIAL IV PRN (13:50)
--- NOTE | 2019-07-16 15:08 | Hospitalist Progress Note ---
Date of Service July 16, 2019 Assessment & Plan (1) Small bowel obstruction: Of NG tube Tolerating clear liquids For colonoscopy tomorrow (2) Lesion of bladder: Dr. Banks's notes: Appreciate urology input and recommendation To have outpatient follow-up and probable cystoscopy as an outpatient Appointment with Dr. Olivia as an outpatient on 29 July for further evaluation of hydronephrosis and suspected bladder lesion (3) Lesion of colon: Appreciate GI input and recommendation For colonoscopy tomorrow (4) Rib lesion: Could have secondary to metastatic lesion with history of CA breast in the past and suspicion for colon and/or urinary bladder -Remote history of breast cancer, previously followed with Dr. Fong (5) Bilateral hydronephrosis: -CT notes 1 cm bladder lesion and possible transverse colon and rib lesions, bilateral hydronephrosis; possible carcinomatosis as etiology for SBO Urologist consulted -Regarding bilateral hydronephrosis, creatinine is noted to be baseline at 1.4 Outpatient follow-up recommended (6) CKD (chronic kidney disease), stage III: - baseline creat runs in the mid ones - creat improved to 1.1 - continue to monitor, avoid nephrotoxic agents when able (7) DM type 2 (diabetes mellitus, type 2): -Hgb A1c 6.9 05/2019 -Hold oral agents and utilize NovoLog per protocol while hospitalized (8) HTN (hypertension): -BP remains elevated at around 160 systolic and 89 diastolic -We will continue current medications (9) Temporal arteritis: -Receives Actemra injections every 14 days (10) Dyslipidemia: -Continue statin (11) DVT prophylaxis: -SQ heparin Subjective Follow-up for small bowel obstruction Sitting up in bedside chair, comfortable, not in distress Tolerating clear liquids well Positive BMs with colonoscopy prep Denies chest pain, shortness of breath palpitations, dizziness No other symptoms Review of Systems Review of Systems: All systems reviewed & are unremarkable except as noted in HPI & below Physical Exam Physical Exam: General- oriented x 3, not in distress, speaks in sentences with no effort or accessory muscle use Eyes- anicteric Neck- no JVD Lungs- clear breath sounds bilaterally, no crackles or wheezing Heart- normal rate, regular rhythm; no murmurs Abdomen- normal bowel sounds, nondistended, soft, nontender Extremities- no pretibial edema, no calf tenderness Neuro- alert, oriented x 3; no gross focal neurologic deficits Skin- warm & dry Results & Data Vital Signs (Past 12 Hours) Vital Signs Pulse Resp BP Pulse Ox 07/16/19 08:19 85 18 133/71 94 Laboratory Results Laboratory Results - last 24 hr 07/15/19 07/16/19 07/16/19 20:56 08:15 12:39 Sodium Potassium Chloride Carbon Dioxide Anion Gap BUN Creatinine Est Cr Clr Drug Dosing Est GFR ( Amer) Est GFR (Non-Af Amer) BUN/Creatinine Ratio Glucose POC Glucose 175 H 167 H 185 H Calcium 07/16/19 07/16/19 07/16/19 15:21 15:47 17:06 Sodium 139 Potassium 3.3 L Chloride 109 H Carbon Dioxide 18 L Anion Gap 12.0 H BUN 14 Creatinine 1.19 Est Cr Clr Drug Dosing 30.9 Est GFR ( Amer) 48.9 Est GFR (Non-Af Amer) 42.2 BUN/Creatinine Ratio 12.1 Glucose 154 H POC Glucose 150 H Calcium 8.3 L
[2019-07-16 15:47] LABS: BUN Creatinine Ratio 12.1 (10-20); Calcium 8.3 mg/dl (8.5-10.1); Creatinine Clr Calc Pharmacy 30.9 ml/min; Est GFR (African American) 48.9; Est GFR (Non-African American) 42.2
[2019-07-16] MEDS ORDERED: POTASSIUM CHLORIDE 20 MEQ TABCR PO STA (19:35)
[2019-07-16] MEDS: AMITRIPTYLINE HCL 25 MG TAB PO SCH (21:46)
[2019-07-16] MEDS: LATANOPROST 0.005% OP SOLN 2.5 ML BTL OP SCH (21:46)
[2019-07-17] MEDS ORDERED: Nursing to Pharmacy Communication ONE ×2 (03:24→11:46)
[2019-07-17] MEDS ORDERED: INSULIN ASPART 100 UNITS/ML 3 ML PEN SC SCH (06:00)
[2019-07-17] MEDS: HEPARIN SOD 5,000 UNIT/0.5 ML VIAL SQ SCH ×2 (06:09→21:21)
[2019-07-17 07:28] LABS: BUN Creatinine Ratio 11.2 (10-20); Calcium 8.1 mg/dl (8.5-10.1); Creatinine Clr Calc Pharmacy 30.9 ml/min; Est GFR (African American) 48.9; Est GFR (Non-African American) 42.2; Potassium 3.2 mmol/L (3.5-5.1)
[2019-07-17] MEDS: POTASSIUM CHLORIDE / WTR 10 MEQ/100 ML PLCT IV SCH ×3 (08:09→13:37)
[2019-07-17] MEDS: AMLODIPINE BESYLATE 5 MG TAB PO SCH (08:40)
[2019-07-17] MEDS: ATENOLOL 50 MG TABLET PO SCH ×2 (08:40→21:23)
--- NOTE | 2019-07-17 09:06 | History & Physical Bridge Note ---
Date of Service July 17, 2019 History & Physical Bridge Note I have examined the patient, reviewed the History & Physical and in the interval since the performance of the History & Physical I have noted the following changes of clinical significance: no changes noted. We are planning for colonoscopy today to evaluate a CT showing evidence of a possible mass in the transverse colon. We discussed the risks to include bleeding, infection, perforation and need for follow-up studies.
--- NOTE | 2019-07-17 09:11 | Anesthesiology Consultation ---
Date of Service July 17, 2019 Assessment & Plan Chart Review Chart Review: Acceptable Risk for Surgery and Patient NOT seen in Pre Admission Testing Consults Requested none History Surgery Operation Date: 07/17/19 16:00 Proposed Procedures p Colonoscopy Dr Thaddeus Travis Height/Weight Height: 5 ft 4 in Weight: 60.4 kg Allergies Allergy/AdvReac Type Severity Reaction Status Date / Time Influenza Virus Vaccines Allergy Mild SWELLING Verified 07/12/19 08:28 Medications Home Medications Medication Instructions Recorded Confirmed Last Taken Actemra 162 mg IV .Q OTHER WEEK 03/28/18 07/14/19 06/30/19 alprazolam [Xanax] 0.25 mg PO DAILY PRN 03/28/18 07/12/19 07/11/19 ascorbic acid (vitamin C) [Vitamin 500 mg PO QAM 03/28/18 07/12/19 07/11/19 C] atenolol [Tenormin] 50 mg PO BID 03/28/18 07/12/19 07/11/19 calcium carbonate-vitamin D3 1 tab PO BID 03/28/18 07/12/19 07/11/19 [Os-Arcadio 500 + D3] escitalopram oxalate [Lexapro] 10 mg PO QAM 03/28/18 07/12/19 07/11/19 multivitamin 1 tab PO QAM 03/28/18 07/12/19 07/11/19 rosuvastatin [Crestor] 20 mg PO QAM 03/28/18 07/12/19 07/11/19 cranberry 400 mg PO QAM 07/07/19 07/12/19 07/11/19 famotidine [Pepcid] 20 mg PO BID 07/07/19 07/12/19 07/11/19 linagliptin [Tradjenta] 5 mg PO QAM 07/07/19 07/12/19 07/11/19 amitriptyline 25 mg PO HS 07/12/19 07/12/19 Unknown amlodipine 5 mg PO DAILY 07/12/19 07/12/19 Unknown esomeprazole magnesium [Nexium] 20 mg PO DAILY 07/12/19 07/12/19 Unknown latanoprost 1 drp OPHTHALMIC (EYE) PM 07/12/19 07/12/19 Unknown ondansetron HCl [Zofran] 4 mg PO Q6H PRN 07/12/19 07/12/19 Unknown tramadol 50 mg PO Q8H PRN 07/12/19 07/12/19 Unknown Active Medications Generic Name Dose Route Start Last Admin Trade Name [place] PRN Reason Stop Dose Admin Acetaminophen 650 mg 07/12/19 12:46 07/14/19 21:04 Tylenol PO 08/11/19 12:45 650 mg Q4H PRN Administration pain/fever Amitriptyline HCl 25 mg 07/12/19 21:00 07/16/19 21:46 Elavil PO 08/11/19 20:59 25 mg HS NENA Administration Amlodipine Besylate 5 mg 07/13/19 09:00 07/17/19 08:40 Norvasc PO 08/12/19 08:59 5 mg DAILY NENA Administration Atenolol 50 mg 07/12/19 21:00 07/17/19 08:40 Tenormin PO 08/11/19 20:59 50 mg BID NENA Administration Escitalopram Oxalate 10 mg 07/13/19 09:00 07/16/19 09:04 Lexapro Tab PO 08/12/19 08:59 10 mg QAM NENA Administration Heparin Sodium (Porcine) 5,000 units 07/12/19 14:00 07/17/19 06:09 Heparin Sodium (Porcine) SQ 08/11/19 13:59 5,000 units Q8 NENA Administration Famotidine 20 mg/ Syringe 5 mls @ 2.5 mls/min 07/12/19 12:46 07/16/19 21:46 IV 08/11/19 12:45 2.5 mls/min BID NENA Administration Potassium Chloride 10 meq in 100 mls @ 100 mls/hr 07/17/19 07:29 07/17/19 08:44 K Joselo / Wtr IV 07/17/19 11:28 0 mls/hr Q1H NENA Infusion Insulin Aspart 0 units 07/17/19 06:00 07/17/19 06:09 Novolog Flexpen SC 08/16/19 05:59 1 units Q6 NENA Administration Latanoprost 1 drops 07/12/19 21:00 07/16/19 21:46 Xalatan Oph OP 08/11/19 20:59 1 drops PM NENA Administration Morphine Sulfate 3 mg 07/12/19 12:46 07/12/19 21:20 Morphine Sulfate IV 07/26/19 12:45 3 mg Q4H PRN Administration Pain Ondansetron HCl 4 mg 07/12/19 12:46 07/16/19 13:50 Zofran IV 08/11/19 12:45 4 mg Q6H PRN Administration nausea Phenol 1 sprays 07/12/19 15:32 07/12/19 21:34 Chloraseptic 1.4% [place] 08/11/19 15:31 1 sprays PRN PRN Administration Sore Throat Rosuvastatin Calcium 20 mg 07/13/19 09:00 07/16/19 09:04 Crestor PO 08/12/19 08:59 20 mg QAM NENA Administration NPO Date Last Intake of Fluids: 07/17/19 Time Last Intake of Fluids: 00:01 Date Last Intake of Solids: 07/11/19 Time Last Intake of Solids: 08:00 Past Medical History Medical History Anxiety Arthritis Cataracts, bilateral CKD (chronic kidney disease), stage III DM type 2 (diabetes mellitus, type 2) Dyslipidemia HTN (hypertension) HX: breast cancer Temporal arteritis Past Family History Family History Mother Diabetes Past Surgical History Surgical History H/O right mastectomy Jun 2018 History of appendectomy History of cataract surgery S/P LIZBETH-BSO Social History Smoking Status: Never smoker Hx Alcohol Use: No Hx Substance Use: No Physical Exam Vital Signs Last Vital Signs Temp 37.3 C 07/17/19 08:57 Pulse 97 H 07/17/19 08:57 Resp 20 07/17/19 08:57 BP 162/71 H 07/17/19 08:57 Pulse Ox 96 07/17/19 08:57 Testing Laboratory Results 07/14/19 06:14 07/17/19 06:36 Urine Color Yellow 07/12/19 09:50 Urine Appearance Clear (Clear) 07/12/19 09:50 Urine pH 6.5 (4.5-7.5) 07/12/19 09:50 Ur Specific [place] 1.020 (1.000-1.030) 07/12/19 09:50 Urine Protein Negative (Negative) 07/12/19 09:50 Urine Glucose (UA) Negative (Negative) 07/12/19 09:50 Urine Ketones Trace (Negative) H 07/12/19 09:50 Urine Nitrite Negative (Negative) 07/12/19 09:50 Ur Leukocyte Esterase Negative (Negative) 07/12/19 09:50 Urine WBC (Auto) 1-5 /hpf (0-5) 07/12/19 09:50 Urine RBC (Auto) 0-4 /hpf (0-4) 07/12/19 09:50 U Hyaline Cast (Auto) 0 /lpf (0-5) 07/12/19 09:50 U Epithel Cells (Auto) 0-5 /lpf (0-5) 07/12/19 09:50 Urine Bacteria (Auto) Negative (Negative) 07/12/19 09:50 07/17/19 06:07 POC Glucose 149 H
[2019-07-17] MEDS ORDERED: ATROPINE SULFATE 0.1 MG/ML 10ML SYR IV PRN (09:13)
[2019-07-17] MEDS ORDERED: ENDOSCOPIC MARKER 5 ML SYR TOP ONE (09:36)
[2019-07-17] MEDS ORDERED: LIDOCAINE HCL 2% 2 ML VIAL/AMP(20MG/ML) INFIL ONE (09:49)
[2019-07-17] MEDS ORDERED: PROPOFOL IV EMULSION 10 MG/ML 20 ML VIAL IV ONE (09:49)
--- NOTE | 2019-07-17 09:57 | GI REPORT ---
Patient Name: Kristina Contreras Procedure Date: 07/17/2019 9:17 AM Date of : 1935 Admit Type: Inpatient Age: 83 Gender: Female Attending MD: Monse Travis DO Procedure: Colonoscopy Providers: Monse Travis DO Referring MD: Donis Waller Indications: Abnormal CT of the GI tract Medicines: Monitored Anesthesia Care Complications: No immediate complications. Estimated blood loss: Minimal. Estimated Blood Loss: Estimated blood loss was minimal. Procedure: Pre-Anesthesia Assessment: - Prior to the procedure, a History and Physical was performed, and patient medications, allergies and sensitivities were reviewed. The patient's tolerance of previous anesthesia was reviewed. - The risks and benefits of the procedure and the sedation options and risks were discussed with the patient. All questions were answered and informed consent was obtained. - Patient identification and proposed procedure were verified prior to the procedure by the physician, the nurse and the console attendant. The procedure was verified in the procedure room. - Pre-procedure physical examination revealed no contraindications to sedation. - ASA Grade Assessment: III - A patient with severe systemic disease. - After reviewing the risks and benefits, the patient was deemed in satisfactory condition to undergo the procedure. - The anesthesia plan was to use monitored anesthesia care (MAC). - Immediately prior to administration of medications, the patient was re-assessed for adequacy to receive sedatives. - The physical status of the patient was re-assessed after the procedure. After I obtained informed consent, the scope was passed under direct vision. Throughout the procedure, the patient's blood pressure, pulse, and oxygen saturations were monitored continuously. The Colonoscope was introduced through the anus and advanced to the sigmoid colon. The Colonoscope was introduced through the anus and advanced to the splenic flexure. The colonoscopy was performed with difficulty due to multiple diverticula in the colon and bowel stenosis. The patient tolerated the procedure well. The quality of the bowel preparation was adequate to identify polyps 6 mm and larger in size. Findings: The digital rectal exam findings include non-thrombosed external hemorrhoids. Pertinent negatives include normal sphincter tone. Internal hemorrhoids were found during retroflexion. The hemorrhoids were moderate. Multiple small and large-mouthed diverticula were found in the sigmoid colon and descending colon. A malignant-appearing, intrinsic severe stenosis measuring 4-5 mm (inner diameter) was found at the splenic flexure and was non-traversed despite the use of an ultrathin colonoscope. Biopsies were taken with a cold forceps for histology. The pathology specimen was placed into Bottle A. Estimated blood loss was minimal. Area was tattooed with an injection of 2 mL of Spot (carbon black). Estimated blood loss was minimal. Impression: - Non-thrombosed external hemorrhoids found on digital rectal exam. - Internal hemorrhoids. - Moderate diverticulosis in the sigmoid colon and in the descending colon. - Stricture at the splenic flexure. Biopsied. Tattooed. Recommendation: - Return patient to [facility] for [facility] care. - Await pathology results. - If surgery is not anticipated then a colonic stent could be placed. Monse Travis D.O. Monse Travis, 07/17/2019 9:56:31 AM This report has been signed electronically. Note Initiated On: 07/17/2019 9:17 AM Number of Addenda: 0 I attest to the content of the Intraoperative Record and orders documented therein, exceptions below {[id number]}
--- NOTE | 2019-07-17 10:02 | Communication Note ---
Date of Service: July 17, 2019 The patient underwent colonoscopy this morning. She was found to have a very tight stricture likely in the region of the splenic flexure. Unfortunately we could not pass the colonoscope beyond this. Several biopsies were taken from the stricture site. We also tattooed the region. Additional findings included diverticulosis and hemorrhoids. Recommendations Await surgical input, not a surgical candidate a colonic stent could certainly be considered
[2019-07-17] MEDS: ROSUVASTATIN CALCIUM 20 MG TAB PO SCH (11:00)
[2019-07-17] MEDS: ESCITALOPRAM OXALATE 10 MG TAB PO SCH (11:00)
[2019-07-17] MEDS: FAMOTIDINE 20 MG in SYRINGE 3 ML IV SCH ×2 (11:02→21:27)
[2019-07-17] MEDS ORDERED: POTASSIUM CHLORIDE 20 MEQ TABCR PO STA (12:14)
--- NOTE | 2019-07-17 12:21 | Surgery Progress Note ---
Date of Service July 17, 2019 Assessment & Plan (1) Colon stricture: Patient underwent colonoscopy today which revealed a colonic stricture around her splenic flexure. Scope could not traverse the area. Biopsies were taken and the area of concern was tattooed. We discussed the findings with GI physician Dr. Travis who is concerned there may be a malignancy in this area. Options were discussed with the patient and her daughter regarding temporizing it with a colonic stent vs surgical resection. At this time both patient and daughter agree to proceed with surgical resection. We will book patient for the OR tomorrow. - Okay for clear liquid diet today, make NPO at midnight - CEA ordered - Will order Neomycin and Erythromycin 1g to be given at 2pm, 4pm, and 10pm - SCD's ordered, continue SQH - Discussed with the hospitalist service who will pre-op patient prior to surgery - Patient was seen and examined with Dr. Andino Subjective Patient says she is feeling well. Was given bowel prep yesterday for colonoscopy with GI today. She was tolerating liquid diet. No vomiting. Passing stool after prep. Physical Exam Physical Exam: awake/alert Gastrointestinal (Abdomen): Percussion/Palpation: abdomen soft Results & Data Vital Signs (Past 12 Hours) Vital Signs Temp Pulse Pulse Resp BP Pulse Ox 07/17/19 12:00 82 16 138/67 94 07/17/19 10:56 36.7 C 85 14 155/67 H 94 07/17/19 10:24 81 18 137/64 98 07/17/19 10:09 84 18 153/56 H 98 07/17/19 09:54 85 16 136/62 95 07/17/19 08:57 37.3 C 97 H 20 162/71 H 96 07/17/19 08:40 93 H 144/69 H 07/17/19 07:20 36.4 C L 89 16 148/70 H 96 PG Care Time/CCT Total # of Minutes Spent Total Time Spent with Patient: Total time spent is greater than 50% in coordination of care (as documented) at patient's floor/unit and/or counseling patient:
[2019-07-17] MEDS: INSULIN ASPART 100 UNITS/ML 3 ML PEN SC SCH ×3 (13:08→21:22)
[2019-07-17] MEDS: NEOMYCIN SULFATE 500 MG TAB PO SCH ×3 (13:45→21:25)
[2019-07-17] MEDS: ERYTHROMYCIN DELAYED RELEASE 250 MG CAP PO SCH ×3 (13:45→21:25)
[2019-07-17] MEDS ORDERED: ERYTHROMYCIN ETHYLSUCC SUSP 200 MG/5 ML 100 ML BTL PO SCH ×2 (16:00→22:00)
--- NOTE | 2019-07-17 16:31 | Anesthesiology Consultation ---
Date of Service July 17, 2019 Assessment & Plan Chart Review Chart Review: Acceptable Risk for Surgery and Patient NOT seen in Pre Admission Testing Consults Requested none History Surgery Operation Date: 07/17/19 16:00 Proposed Procedures p Colonoscopy Dr Thaddeus Travis Operation Date: 07/18/19 12:20 Proposed Procedures p Laparoscopic-Assisted Colon Resection - Donis Andino MD Height/Weight Height: 5 ft 4 in Weight: 60.4 kg Allergies Allergy/AdvReac Type Severity Reaction Status Date / Time Influenza Virus Vaccines Allergy Mild SWELLING Verified 07/12/19 08:28 Medications Home Medications Medication Instructions Recorded Confirmed Last Taken Actemra 162 mg IV .Q OTHER WEEK 03/28/18 07/14/19 06/30/19 alprazolam [Xanax] 0.25 mg PO DAILY PRN 03/28/18 07/12/19 07/11/19 ascorbic acid (vitamin C) [Vitamin 500 mg PO QAM 03/28/18 07/12/19 07/11/19 C] atenolol [Tenormin] 50 mg PO BID 03/28/18 07/12/19 07/11/19 calcium carbonate-vitamin D3 1 tab PO BID 03/28/18 07/12/19 07/11/19 [Os-Arcadio 500 + D3] escitalopram oxalate [Lexapro] 10 mg PO QAM 03/28/18 07/12/19 07/11/19 multivitamin 1 tab PO QAM 03/28/18 07/12/19 07/11/19 rosuvastatin [Crestor] 20 mg PO QAM 03/28/18 07/12/19 07/11/19 cranberry 400 mg PO QAM 07/07/19 07/12/19 07/11/19 famotidine [Pepcid] 20 mg PO BID 07/07/19 07/12/19 07/11/19 linagliptin [Tradjenta] 5 mg PO QAM 07/07/19 07/12/19 07/11/19 amitriptyline 25 mg PO HS 07/12/19 07/12/19 Unknown amlodipine 5 mg PO DAILY 07/12/19 07/12/19 Unknown esomeprazole magnesium [Nexium] 20 mg PO DAILY 07/12/19 07/12/19 Unknown latanoprost 1 drp OPHTHALMIC (EYE) PM 07/12/19 07/12/19 Unknown ondansetron HCl [Zofran] 4 mg PO Q6H PRN 07/12/19 07/12/19 Unknown tramadol 50 mg PO Q8H PRN 07/12/19 07/12/19 Unknown Active Medications Generic Name Dose Route Start Last Admin Trade Name Freq PRN Reason Stop Dose Admin Acetaminophen 650 mg 07/12/19 12:46 07/14/19 21:04 Tylenol PO 08/11/19 12:45 650 mg Q4H PRN Administration pain/fever Amitriptyline HCl 25 mg 07/12/19 21:00 07/16/19 21:46 Elavil PO 08/11/19 20:59 25 mg HS NENA Administration Amlodipine Besylate 5 mg 07/13/19 09:00 07/17/19 08:40 Norvasc PO 08/12/19 08:59 5 mg DAILY NENA Administration Atenolol 50 mg 07/12/19 21:00 07/17/19 08:40 Tenormin PO 08/11/19 20:59 50 mg BID NENA Administration Erythromycin 1,000 mg 07/17/19 14:00 07/17/19 15:52 Eryc Delayed Rel PO 07/17/19 22:01 1,000 mg 1400,1600,2200 NENA Administration Escitalopram Oxalate 10 mg 07/13/19 09:00 07/17/19 11:00 Lexapro Tab PO 08/12/19 08:59 10 mg QAM NENA Administration Famotidine 20 mg/ Syringe 5 mls @ 2.5 mls/min 07/12/19 12:46 07/17/19 11:02 IV 08/11/19 12:45 2.5 mls/min BID NENA Administration Insulin Aspart 0 units 07/17/19 12:00 07/17/19 13:08 Novolog Flexpen SC 08/16/19 11:59 1 units ACHS NENA Administration Latanoprost 1 drops 07/12/19 21:00 07/16/19 21:46 Xalatan Oph OP 08/11/19 20:59 1 drops PM NENA Administration Morphine Sulfate 3 mg 07/12/19 12:46 07/12/19 21:20 Morphine Sulfate IV 07/26/19 12:45 3 mg Q4H PRN Administration Pain Neomycin Sulfate 1,000 mg 07/17/19 14:00 07/17/19 15:52 Neomycin Sulfate PO 07/17/19 22:01 1,000 mg 1400,1600,2200 NENA Administration Ondansetron HCl 4 mg 07/12/19 12:46 07/16/19 13:50 Zofran IV 08/11/19 12:45 4 mg Q6H PRN Administration nausea Phenol 1 sprays 07/12/19 15:32 07/12/19 21:34 Chloraseptic 1.4% [place] 08/11/19 15:31 1 sprays PRN PRN Administration Sore Throat Rosuvastatin Calcium 20 mg 07/13/19 09:00 07/17/19 11:00 Crestor PO 08/12/19 08:59 20 mg QAM NENA Administration NPO Date Last Intake of Fluids: 07/17/19 Time Last Intake of Fluids: 00:01 Date Last Intake of Solids: 07/11/19 Time Last Intake of Solids: 08:00 Past Medical History Medical History Anxiety Arthritis Cataracts, bilateral CKD (chronic kidney disease), stage III DM type 2 (diabetes mellitus, type 2) Dyslipidemia HTN (hypertension) HX: breast cancer Temporal arteritis Past Family History Family History Mother Diabetes Past Surgical History Surgical History H/O right mastectomy Jun 2018 History of appendectomy History of cataract surgery S/P LIZBETH-BSO Social History Smoking Status: Never smoker Hx Alcohol Use: No Hx Substance Use: No Physical Exam Vital Signs Last Vital Signs Temp 37.4 C 07/17/19 15:16 Pulse 92 H 07/17/19 15:16 Resp 16 07/17/19 15:16 BP 135/64 07/17/19 15:16 Pulse Ox 96 07/17/19 15:16 Testing Laboratory Results 07/14/19 06:14 07/17/19 06:36 Urine Color Yellow 07/12/19 09:50 Urine Appearance Clear (Clear) 07/12/19 09:50 Urine pH 6.5 (4.5-7.5) 07/12/19 09:50 Ur Specific [place] 1.020 (1.000-1.030) 07/12/19 09:50 Urine Protein Negative (Negative) 07/12/19 09:50 Urine Glucose (UA) Negative (Negative) 07/12/19 09:50 Urine Ketones Trace (Negative) H 07/12/19 09:50 Urine Nitrite Negative (Negative) 07/12/19 09:50 Ur Leukocyte Esterase Negative (Negative) 07/12/19 09:50 Urine WBC (Auto) 1-5 /hpf (0-5) 07/12/19 09:50 Urine RBC (Auto) 0-4 /hpf (0-4) 07/12/19 09:50 U Hyaline Cast (Auto) 0 /lpf (0-5) 07/12/19 09:50 U Epithel Cells (Auto) 0-5 /lpf (0-5) 07/12/19 09:50 Urine Bacteria (Auto) Negative (Negative) 07/12/19 09:50 07/17/19 07/17/19 12:02 06:07 POC Glucose 151 H 149 H
--- NOTE | 2019-07-17 17:21 | Hospitalist Progress Note ---
Date of Service July 17, 2019 Assessment & Plan (1) Small bowel obstruction: Off NG tube Patient still tolerating clear liquids Status post colonoscopy, showing stricture of the colonic splenic flexure, biopsy performed, pathology pending Plan for resection of the stricture tomorrow Preoperative evaluation performed No contraindication for planned surgery tomorrow Patient is a low to moderate risk for cardiopulmonary complications This is been discussed with the patient and she is understanding, agreeable for the surgical procedure We will continue to follow closely postoperatively (2) Lesion of bladder: Dr. Banks's notes: Appreciate urology input and recommendation To have outpatient follow-up and probable cystoscopy as an outpatient Appointment with Dr. Olivia as an outpatient on 29 July for further evaluation of hydronephrosis and suspected bladder lesion (3) Lesion of colon: Management per #1 (4) Rib lesion: Could have secondary to metastatic lesion with history of CA breast in the past and suspicion for colon and/or urinary bladder -Remote history of breast cancer, previously followed with Dr. Fong (5) Bilateral hydronephrosis: -CT notes 1 cm bladder lesion and possible transverse colon and rib lesions, bilateral hydronephrosis; possible carcinomatosis as etiology for SBO Urologist consulted -Regarding bilateral hydronephrosis, creatinine is noted to be baseline at 1.4 Outpatient follow-up recommended (6) CKD (chronic kidney disease), stage III: - baseline creat runs in the mid ones - creat improved to 1.1 - continue to monitor, avoid nephrotoxic agents when able (7) DM type 2 (diabetes mellitus, type 2): -Hgb A1c 6.9 05/2019 -Hold oral agents and utilize NovoLog per protocol while hospitalized (8) HTN (hypertension): Stable overall Continue amlodipine and atenolol (9) Temporal arteritis: -Receives Actemra injections every 14 days - Actemra May need to be placed on hold after surgery (10) Dyslipidemia: -Continue statin (11) DVT prophylaxis: -SQ heparin Disposition Lives with family at home We will order PT and OT evaluations Subjective Follow-up for small bowel obstruction Status post colonoscopy today, stricture at the colon flexure was found Seen resting in bed, comfortable, watching TV Denies abdominal pain, nausea, tolerating clear liquids well No shortness of breath, chest pain, palpitations, dizziness As per patient, she is quite active at home Able to climb up steps but no unusual shortness of breath or chest pain Able to walk 2 blocks with no symptoms Denies other symptoms Review of Systems Review of Systems: All systems reviewed & are unremarkable except as noted in HPI & below Physical Exam Physical Exam: General- oriented x 3, not in distress, speaks in sentences with no effort or accessory muscle use Eyes- anicteric Neck- no JVD Lungs- clear breath sounds bilaterally, no crackles, no wheezing Heart- normal rate, regular rhythm; no murmurs Abdomen- normal bowel sounds, nondistended, soft, nontender Extremities- no pretibial edema, no calf tenderness Neuro- alert, oriented x 3; no gross focal neurologic deficits Skin- warm & dry Results & Data Vital Signs (Past 12 Hours) Vital Signs Temp Pulse Pulse Resp BP Pulse Ox 07/17/19 15:16 37.4 C 92 H 16 135/64 96 07/17/19 12:00 82 16 138/67 94 07/17/19 10:56 36.7 C 85 14 155/67 H 94 07/17/19 10:24 81 18 137/64 98 07/17/19 10:09 84 18 153/56 H 98 07/17/19 09:54 85 16 136/62 95 07/17/19 08:57 37.3 C 97 H 20 162/71 H 96 07/17/19 08:40 93 H 144/69 H 07/17/19 07:20 36.4 C L 89 16 148/70 H 96 Laboratory Results Laboratory Results - last 24 hr 07/16/19 07/17/19 07/17/19 20:58 06:07 06:36 Sodium 139 Potassium 3.2 L Chloride 109 H Carbon Dioxide 21 Anion Gap 9.0 BUN 13 Creatinine 1.19 Est Cr Clr Drug Dosing 30.9 Est GFR ( Amer) 48.9 Est GFR (Non-Af Amer) 42.2 BUN/Creatinine Ratio 11.2 Glucose 146 H POC Glucose 170 H 149 H Calcium 8.1 L Carcinoembryonic Ag Blood Type Antibody Screen 07/17/19 07/17/19 07/17/19 12:02 12:40 16:26 Sodium Potassium Chloride Carbon Dioxide Anion Gap BUN Creatinine Est Cr Clr Drug Dosing Est GFR ( Amer) Est GFR (Non-Af Amer) BUN/Creatinine Ratio Glucose POC Glucose 151 H Calcium Carcinoembryonic Ag 1.4 Blood Type O Positive Antibody Screen NEGATIVE 07/17/19 17:27 Sodium Potassium Chloride Carbon Dioxide Anion Gap BUN Creatinine Est Cr Clr Drug Dosing Est GFR ( Amer) Est GFR (Non-Af Amer) BUN/Creatinine Ratio Glucose POC Glucose 160 H Calcium Carcinoembryonic Ag Blood Type Antibody Screen
[2019-07-17] MEDS: AMITRIPTYLINE HCL 25 MG TAB PO SCH (21:21)
[2019-07-17] MEDS: POTASSIUM CHLORIDE 20 MEQ TABCR PO SCH (21:21)
[2019-07-17] MEDS: LATANOPROST 0.005% OP SOLN 2.5 ML BTL OP SCH (21:25)
[2019-07-17] MEDS: D5W AND NSS 1,000 ML IV SCH (23:58)
[2019-07-18] MEDS ORDERED: Nursing to Pharmacy Communication ONE (01:51)
[2019-07-18] MEDS: INSULIN ASPART 100 UNITS/ML 3 ML PEN SC SCH ×4 (05:35→23:57)
[2019-07-18 06:41] LABS: BUN Creatinine Ratio 8.7 (10-20); Calcium 8.2 mg/dl (8.5-10.1); Creatinine Clr Calc Pharmacy 35.1 ml/min; Est GFR (African American) 56.9; Est GFR (Non-African American) 49.1; Magnesium 1.4 mg/dl (1.8-2.4); Potassium 3.7 mmol/L (3.5-5.1)
[2019-07-18] MEDS: FAMOTIDINE 20 MG in SYRINGE 3 ML IV SCH ×2 (08:47→22:23)
[2019-07-18] MEDS: ATENOLOL 50 MG TABLET PO SCH ×2 (08:55→19:42)
[2019-07-18] MEDS: POTASSIUM CHLORIDE 20 MEQ TABCR PO SCH (08:55)
[2019-07-18] MEDS: ESCITALOPRAM OXALATE 10 MG TAB PO SCH (08:55)
[2019-07-18] MEDS: AMLODIPINE BESYLATE 5 MG TAB PO SCH (08:55)
[2019-07-18] MEDS: ROSUVASTATIN CALCIUM 20 MG TAB PO SCH (08:55)
[2019-07-18] MEDS: HEPARIN SOD 5,000 UNIT/0.5 ML VIAL SQ SCH (08:56)
[2019-07-18] MEDS ORDERED: fentaNYL citrate 100 MCG/2 ML VIAL ONE (11:43)
[2019-07-18] MEDS ORDERED: ROCURONIUM BROMIDE 10 MG/ML 5 ML VIAL ONE ×4 (11:43→14:44)
[2019-07-18] MEDS ORDERED: PROPOFOL IV EMULSION 10 MG/ML 20 ML VIAL IV ONE (11:43)
[2019-07-18] MEDS ORDERED: LIDOCAINE HCL 2% 2 ML VIAL/AMP(20MG/ML) INFIL ONE (11:43)
--- NOTE | 2019-07-18 11:52 | History & Physical Bridge Note ---
Date of Service July 18, 2019 History & Physical Bridge Note I have examined the patient, reviewed the History & Physical and in the interval since the performance of the History & Physical I have noted the following changes of clinical significance: no changes noted all questions answered daughter at bedside noted bruise right flank to right groin ecchymosis dark bluish yellow brandy 1 week old likely from heparin injection Supervising Physician Co-Signing Physician Notes I performed a history and physical examination of the patient, including specifically on physical exam - soft, nontender abdomen. I have discussed the patient's management with Mariah. Please refer to the nurse practitioner's note for the documented findings and plan of care. Passing flatus and small BM. Current SBO resolved. Slow low volume bowel prep tomorrow and colonoscopy on .
--- NOTE | 2019-07-18 12:01 | Anesthesiology Consultation ---
Date of Service July 18, 2019 Assessment & Plan (1) Encounter for pre-operative examination: Chart Review Chart Review: Acceptable Risk for Surgery and Patient NOT seen in Pre Admission Testing Consults Requested none History Surgery Operation Date: 07/17/19 16:00 Proposed Procedures p Colonoscopy Dr Thaddeus Travis Operation Date: 07/18/19 12:20 Proposed Procedures p Laparoscopic-Assisted Colon Resection - Donis Andino MD Height/Weight Height: 5 ft 4 in Weight: 60.4 kg Allergies Allergy/AdvReac Type Severity Reaction Status Date / Time Influenza Virus Vaccines Allergy Mild SWELLING Verified 07/12/19 08:28 Medications Home Medications Medication Instructions Recorded Confirmed Last Taken Actemra 162 mg IV .Q OTHER WEEK 03/28/18 07/14/19 06/30/19 alprazolam [Xanax] 0.25 mg PO DAILY PRN 03/28/18 07/12/19 07/11/19 ascorbic acid (vitamin C) [Vitamin 500 mg PO QAM 03/28/18 07/12/19 07/11/19 C] atenolol [Tenormin] 50 mg PO BID 03/28/18 07/12/19 07/11/19 calcium carbonate-vitamin D3 1 tab PO BID 03/28/18 07/12/19 07/11/19 [[place] 500 + D3] escitalopram oxalate [Lexapro] 10 mg PO QAM 03/28/18 07/12/19 07/11/19 multivitamin 1 tab PO QAM 03/28/18 07/12/19 07/11/19 rosuvastatin [Crestor] 20 mg PO QAM 03/28/18 07/12/19 07/11/19 cranberry 400 mg PO QAM 07/07/19 07/12/19 07/11/19 famotidine [Pepcid] 20 mg PO BID 07/07/19 07/12/19 07/11/19 linagliptin [Tradjenta] 5 mg PO QAM 07/07/19 07/12/19 07/11/19 amitriptyline 25 mg PO HS 07/12/19 07/12/19 Unknown amlodipine 5 mg PO DAILY 07/12/19 07/12/19 Unknown esomeprazole magnesium [Nexium] 20 mg PO DAILY 07/12/19 07/12/19 Unknown latanoprost 1 drp OPHTHALMIC (EYE) PM 07/12/19 07/12/19 Unknown ondansetron HCl [Zofran] 4 mg PO Q6H PRN 07/12/19 07/12/19 Unknown tramadol 50 mg PO Q8H PRN 07/12/19 07/12/19 Unknown Active Medications Generic Name Dose Route Start Last Admin Trade Name Freq PRN Reason Stop Dose Admin Acetaminophen 650 mg 07/12/19 12:46 07/14/19 21:04 Tylenol PO 08/11/19 12:45 650 mg Q4H PRN Administration pain/fever Amitriptyline HCl 25 mg 07/12/19 21:00 07/17/19 21:21 Elavil PO 08/11/19 20:59 25 mg HS NENA Administration Amlodipine Besylate 5 mg 07/13/19 09:00 07/18/19 08:55 Norvasc PO 08/12/19 08:59 Not Given DAILY NENA Atenolol 50 mg 07/12/19 21:00 07/18/19 08:55 Tenormin PO 08/11/19 20:59 Not Given BID NENA Escitalopram Oxalate 10 mg 07/13/19 09:00 07/18/19 08:55 Lexapro Tab PO 08/12/19 08:59 Not Given QAM NENA Heparin Sodium (Porcine) 5,000 units 07/17/19 21:00 07/18/19 08:56 Heparin Sodium (Porcine) SQ 08/16/19 20:59 5,000 units Q12 NENA Administration Famotidine 20 mg/ Syringe 5 mls @ 2.5 mls/min 07/12/19 12:46 07/18/19 08:47 IV 08/11/19 12:45 2.5 mls/min BID NENA Administration Dextrose/Sodium Chloride 1,000 mls @ 60 mls/hr 07/18/19 00:01 07/18/19 06:13 D5w And Nss IV 08/17/19 00:00 60 mls/hr .[id number] NENA Infusion Insulin Aspart 0 units 07/18/19 06:00 07/18/19 11:36 Novolog Flexpen SC 08/17/19 05:59 1 units Q6 NENA Administration Latanoprost 1 drops 07/12/19 21:00 07/17/19 21:25 Xalatan Oph OP 08/11/19 20:59 1 drops PM NENA Administration Morphine Sulfate 3 mg 07/12/19 12:46 07/12/19 21:20 Morphine Sulfate IV 07/26/19 12:45 3 mg Q4H PRN Administration Pain Ondansetron HCl 4 mg 07/12/19 12:46 07/16/19 13:50 Zofran IV 08/11/19 12:45 4 mg Q6H PRN Administration nausea Phenol 1 sprays 07/12/19 15:32 07/12/19 21:34 Chloraseptic 1.4% [place] 08/11/19 15:31 1 sprays PRN PRN Administration Sore Throat Potassium Chloride 40 meq 07/17/19 21:00 07/18/19 08:55 Klor-Con M20 PO 08/16/19 20:59 Not Given BID NENA Rosuvastatin Calcium 20 mg 07/13/19 09:00 07/18/19 08:55 Crestor PO 08/12/19 08:59 Not Given QAM NENA NPO Date Last Intake of Fluids: 07/17/19 Time Last Intake of Fluids: 21:00 Date Last Intake of Solids: 07/11/19 Time Last Intake of Solids: 12:00 Past Medical History Medical History Anxiety Arthritis Cataracts, bilateral CKD (chronic kidney disease), stage III DM type 2 (diabetes mellitus, type 2) Dyslipidemia HTN (hypertension) HX: breast cancer Temporal arteritis Past Family History Family History Mother Diabetes Past Surgical History Surgical History H/O right mastectomy Jun 2018 History of appendectomy History of cataract surgery S/P LIZBETH-BSO Social History Smoking Status: Never smoker Hx Alcohol Use: No Hx Substance Use: No Physical Exam Vital Signs Last Vital Signs Temp 36.8 C 07/18/19 12:02 Pulse 91 H 07/18/19 12:02 Resp 20 07/18/19 12:02 BP 154/60 H 07/18/19 12:02 Pulse Ox 91 07/18/19 12:02 Testing Laboratory Results 07/14/19 06:14 07/18/19 05:47 Urine Color Yellow 07/12/19 09:50 Urine Appearance Clear (Clear) 07/12/19 09:50 Urine pH 6.5 (4.5-7.5) 07/12/19 09:50 Ur Specific [place] 1.020 (1.000-1.030) 07/12/19 09:50 Urine Protein Negative (Negative) 07/12/19 09:50 Urine Glucose (UA) Negative (Negative) 07/12/19 09:50 Urine Ketones Trace (Negative) H 07/12/19 09:50 Urine Nitrite Negative (Negative) 07/12/19 09:50 Ur Leukocyte Esterase Negative (Negative) 07/12/19 09:50 Urine WBC (Auto) 1-5 /hpf (0-5) 07/12/19 09:50 Urine RBC (Auto) 0-4 /hpf (0-4) 07/12/19 09:50 U Hyaline Cast (Auto) 0 /lpf (0-5) 07/12/19 09:50 U Epithel Cells (Auto) 0-5 /lpf (0-5) 07/12/19 09:50 Urine Bacteria (Auto) Negative (Negative) 07/12/19 09:50 Blood Type O Positive 07/17/19 16:26 Antibody Screen NEGATIVE 07/17/19 16:26 07/18/19 07/18/19 11:35 05:31 POC Glucose 161 H 151 H Electrocardiogram Date: 07/12/19 Findings: + NSR @ (74) Chest X-Ray Date: 07/12/19 XR chest 1V portable CLINICAL HISTORY: Chest pain. COMPARISON STUDY: Chest radiograph March 28, 2018. FINDINGS: Lung volumes are normal. Lungs are clear. There is no pneumothorax or pleural effusion. Cardiac size is normal. Mediastinal contours are normal. There is no evidence for pulmonary edema. IMPRESSION: No acute cardiopulmonary findings. ACT 112: Negative or not required by law. Electronically signed by: Luther Thompson M.D. 07/12/2019 8:[address] SCAN OF THE BRAIN WITHOUT IV CONTRAST CLINICAL HISTORY: Generalized weakness. Change in mental status. COMPARISON STUDY: MRI of the brain dated 12/31/2017. TECHNIQUE: Unenhanced axial CT scan of the brain is performed from the vertex to the skull base. A dose lowering technique was utilized adhering to the principles of ALARA. CT DOSE: 537.48 mGy.cm FINDINGS: Brain parenchyma: There are age-related involutional changes noting mild to moderate subcortical and periventricular microangiopathic change. There is no hemorrhage, mass effect, or evidence of acute territorial ischemia by CT criteria. A small chronic lacunar infarct is noted in the right cerebellar hemisphere. Gonzales-white matter is preserved. No extra-axial fluid collection is seen. Ventricles, sulci, cisterns: Prominent secondary to involutional change. Intracranial vasculature: There is atherosclerotic calcification of the cavernous carotid and vertebral arteries. Calvarium: Unremarkable. Sinuses and mastoids: There is opacification of a right posterior ethmoid sinus. The remaining visualized paranasal sinuses are clear. The mastoid air cells are well pneumatized. Orbits: The bony orbits are grossly intact. 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 Ocular lens implants are noted. IMPRESSION: There is no hemorrhage, mass effect, or evidence of acute territorial ischemia by CT criteria. Electronically signed by: Travis Cedillo M.D. 03/28/2018 1:14 PM Dictated: 03/28/18 1312 Transcribed: 03/28/18 1312
[2019-07-18] MEDS ORDERED: ATROPINE SULFATE 0.1 MG/ML 10ML SYR IV PRN (12:06)
[2019-07-18] MEDS ORDERED: ONDANSETRON INJ 2 MG/ML 2 ML VIAL IV PRN (12:06)
[2019-07-18] MEDS ORDERED: fentaNYL citrate 100 MCG/2 ML VIAL IV PRN (12:06)
[2019-07-18] MEDS ORDERED: PHENYLEPHRINE 100MCG/ML 5ML SYR IV PRN (12:06)
[2019-07-18] MEDS ORDERED: HYDROmorphone INJ 1 MG/ML SYRINGE IV PRN (12:06)
[2019-07-18] MEDS ORDERED: ePHEDrine sulfate 50 MG/ML AMP IV PRN (12:06)
[2019-07-18] MEDS ORDERED: LABETALOL HCL IV 5 MG/ML 20ML IV PRN (12:06)
[2019-07-18] MEDS ORDERED: BUPIVACAINE 0.5 % 5 MG/1 ML MPF 30ML VIAL ONE (12:41)
[2019-07-18] MEDS ORDERED: cefOXitin 2,000 MG in DEXTROSE 5% 50 ML IV STA (14:20)
[2019-07-18] MEDS ORDERED: NEOSTIGMINE METHYLSULFATE 5 MG/5 ML SYR ONE (14:46)
[2019-07-18] MEDS ORDERED: ONDANSETRON INJ 2 MG/ML 2 ML VIAL ONE ×2 (14:46)
[2019-07-18] MEDS ORDERED: PHENYLEPHRINE HCL 10 MG/ML VIAL ONE ×2 (14:46→16:28)
[2019-07-18] MEDS ORDERED: GLYCOPYRROLATE 0.2 MG/ML VIAL ONE (14:46)
[2019-07-18] MEDS: THROMBIN FOR SOLN 20000 UNIT KIT ONE ×2 (15:13→15:15)
[2019-07-18] MEDS: GELATIN SPONGE SZ 100 ONE ×3 (15:14→15:25)
[2019-07-18] MEDS ORDERED: FLOSEAL HEMOSTATIC MATRIX 10ML TOP ONE (15:15)
[2019-07-18] MEDS ORDERED: SURGICEL ABSORB HEMOSTAT 2IN X 14IN TOP ONE (15:23)
--- NOTE | 2019-07-18 15:43 | Post Operative Brief Note ---
PG Immediate Post Op with CF Date of Surgery July 18, 2019 Pre & Post Diagnosis Operation Date: 07/17/19 16:00 Pre-Op Diagnosis: ABNORMAL CT SCAN Post-Op Diagnosis: TRANSVERSE COLON STRICTURE, TRANSVERSE COLON MASS, DIVERTICULOSIS Operation Date: 07/18/19 12:20 Pre-Op Diagnosis: Small bowel obstruction I identified the patient and participated in the time-out.: Yes Procedure Operation Date: 07/17/19 16:00 Actual Procedures p Colonoscopy Biopsy Cytology - Monse Travis Operation Date: 07/18/19 12:20 Actual Procedures p Laparoscopic-Assisted Colon Resection Converted to Open Colon Resection(Not Applicable) - Donis Andino MD Surgeon Donis Andino MD Quality Assurance Specialist b brigida solano Estimated Blood Loss 0 Findings Consistent with Post-Op Diagnosis Specimens Specimen Description: Cytoloty #1 peritoneal Fluid (please spin down per Dr. Andino) out of room at 1359 Specimen A: Omentum Drains Weber Catheter, [place] Drain and Other (keila 19fr)
--- NOTE | 2019-07-18 16:02 | Operative Report ---
PG Post Operative Report Pre & Post Diagnosis Operation Date: 07/17/19 16:00 Pre-Op Diagnosis: ABNORMAL CT SCAN Post-Op Diagnosis: TRANSVERSE COLON STRICTURE, TRANSVERSE COLON MASS, DIVERTICULOSIS Operation Date: 07/18/19 12:20 Pre-Op Diagnosis: Small bowel obstruction I identified the patient and participated in the time-out.: Yes Procedure Operation Date: 07/17/19 16:00 Actual Procedures p Colonoscopy Biopsy Cytology - Monse Travis Operation Date: 07/18/19 12:20 Actual Procedures p Laparoscopic-Assisted Colon Resection Converted to Open Colon Resection(Not Applicable) - Donis Andino MD The patient was brought into the operating room theater under general endotracheal anesthesia and she was relaxed I was able to palpate the abdomen more thoroughly since she had a significant amount of ecchymosis right flank towards the symphysis pubis and I can feel in the right lower quadrant what appears to be a fullness hard mass that I do not appreciate right relaxation at this point the abdomen was prepped Betadine solution and properly draped systemic biotics have been given a timeout was had the patient was identified a small incision was made supraumbilically sufficient for a Veress needle followed by CO2 followed by 5 mm trocar the scope was positioned we could see the left colon midway visualized rest of the abdomen did not see any obvious implant I was not able to see the tattoo which was positioned at the time of colonoscopy at 55 cm this point a 5 mm right lower quadrant port was placed under direct visualization and using a grasper it was tried to elevate and see if we could identify the tattoo we went fairly near to splenic flexure although I was not able to bring up the splenic flexure went over towards the stomach and was able to go towards the splenic flexure from transverse colon I could visualize the spleen and there was appeared to be a hard mass involving the colon right at the splenic hilum this was approximately the size of a tangerine I could feel it but still could not see any tattoo the colon proximal to this area did not seem to be significantly dilated and distally it was a little bit less dilated but still normal at this point I was unsure exactly where the tattoo was whether it was not right at the splenic hilum and being the spleen is strictly adherent to the mass that he mentioned above I elected to make an incision in the epigastric area deepened to subcutaneous tissue entered the abdomen the patient had omental adhesions were right lower to the lower abdomen for previous hysterectomy and I noticed that she had some fluids almost blood-tinged in the left gutter this point I placed the [place] trap and will send this for cytology on abdominal expiration by hand I can feel the omentum to be granular in nature although no obvious implants could be identified these grossly I could palpate the tra nsverse colon which is normal and follow the omentum down towards the splenic flexure and there the mesentery to the colon was strictly and very fibrous in nature appeared to be born almost down to the root of mesentery but no gross lesions were identified the duodenum was actually to the right of the spine but grossly normal at this point I can see the spleen was strictly adherent to this mass with a very hard indurated tissue very chronically and acutely sclerotic I freed much of this is possible and then I was able to palpate an indurated area in the transverse colon just proximal to the splenic flexure approximately 5 cm so inside was thickened the serosa was grossly normal the caliber of the colon there appeared to be smaller than the proximal aspect and distal aspect I did not see any tattoo at all suspected that this was the lesion that they were seen radiographically and after talking with Dr. Brewster could not get through it with the colonoscope not sure exactly what we are dealing with the patient had a previously history of breast cancer approximately 10 years ago whether or not it was his metastatic lesion or primary colon cancer I went personally pathologist and discussed with the pathologist the biopsy that was done yesterday from colonoscope and they were not 100% sure but certainly could be a breast cancer the cytology and the peritoneal fluid did not reveal any obvious carcinomatosis therefore the decision at this time was made to free up the spleen from this area and do a limited colon resection taken the mass out which we did with took approximately a foot of tissue went down to the mesentery ligated with 2-0 silk the proximal area from the lesion was approximately 10 cm we used a GAB stapler distally were similar away from the lesion and and fired another stapler the 2 ends of the staple line could be seen that was could bring back together without any defect difficulty or any tension I closed the mesentery grade 3-0 silk interrupted suture we paid special attention to the spleen we had a constant loser right at the splenic hilum that which we treated with Surgicel FloSeal topical thrombin and Gelfoam by the time we were finished it appeared quite hemostatic although we did lose probably about 250 cc of blood throughout the procedure the proximal colon which we stapled across was oversewn with 3-0 interrupted silk the distal descending colon we freshened that up and did a side and anastomosis using 3-0 silk our layer 3-0 chromic interlayer the prep was excellent there was no obvious obstruction in the transverse colon from fecal material the area was then again chest hemostasis appeared satisfactory we then placed a [place] drain 19 in the left upper quadrant above the spleen attaching a 2-0 silk suture to the skin edge and the wound was closed with interrupted #1 PDS Vicryl quarter inch [place] was placed in the subcu 3-0 silk suture in the distal and proximal to the incisional julianna for skin edges dressing was applied procedure was tolerated well estimated blood loss 250 of note when we were in the abdomen we can see that the mass in the right lower quadrant that we felt waiting for initially 1 end was a rectus sheath hematoma this is most likely from the heparin injection that she was getting subcu she was getting it every 8 hours yesterday we covered on the every 12 we will hold her dose hold this postoperatively will stabilize addendumB Yumiko solano was present throughout the procedure and help with retraction exposure and wound closure Surgeon Donis Andino MD Electrical Troubleshooter b yumiko solano Estimated Blood Loss 0 Findings Consistent with Post-Op Diagnosis Specimens partial omentectomy transverse colon segment peritoneal fluid Description of Procedure merda I attest to the content of the Intraoperative Record and any orders documented therein. Any exceptions are noted below. Supervising Physician Co-Signing Physician Notes I performed a history and physical examination of the patient, including specifically on physical exam - soft, nontender abdomen. I have discussed the patient's management with Mariah. Please refer to the nurse practitioner's note for the documented findings and plan of care. Passing flatus and small BM. Current SBO resolved. Slow low volume bowel prep tomorrow and colonoscopy on .
[2019-07-18] MEDS ORDERED: INSULIN HUMAN REGULAR PER UNIT 15 UNITS in SYRINGE 0 ML IV STA ×2 (16:22→17:44)
[2019-07-18] MEDS ORDERED: NovoLIN-R INSULIN PER UNIT CHARGE ONE (16:22)
[2019-07-18] MEDS ORDERED: SODIUM CHLORIDE 0.9% 250 ML IV PRN (16:27)
[2019-07-18] MEDS: D5W AND NSS 1,000 ML IV SCH (16:41)
[2019-07-18] MEDS ORDERED: PHENYLEPHRINE HCL 20 MG in DEXTROSE 5% 500 ML IV SCH (16:45)
--- NOTE | 2019-07-18 17:43 | XRay Report ---
XR chest 1V portable HISTORY: central line placement COMPARISON: Chest 07/12/2019. FINDINGS: Abnormal density within the right upper to midlung zone with associated volume loss. This f avors right upper lobe collapse. There is also linear densities the right lung base suggestive of sub segmental atelectasis. The left lung is clear. The heart is normal in size. A nasogastric tube termin ates in the stomach. There is a surgical drain within the left midabdomen. A right jugular central ve nous catheter terminates in the expected location of the superior cavoatrial junction. No pneumothor ax. IMPRESSION: 1. Right central venous catheter terminates at the expected location of the superior cavoatrial junct ion. 2. Nasogastric tube terminates in the stomach. 3. Right upper lobe density with volume loss in the right hemithorax. This is concerning for right up per lobe collapse. Pulmonary consultation with bronchoscopy recommended for further evaluation to exc lude the possibility of mucous plugging given the recent change. 4. These findings were discussed with Dr. López at 5:45 PM on 07/18/2019. ACT 112: Negative or not required by law. Electronically signed by: Waqas Ferrer M.D. 07/18/2019 5:47 PM
--- NOTE | 2019-07-18 17:43 | Procedure Note ---
Procedure Note Date of Service July 18, 2019 Note Central Line Note Date and time of procedure:07/18/2019 1710 Indication: Hemodynamic monitoring Intravenous Access Central Access Consent: Informed consent obtained from the patient or designated proxy. The inherent risks, expected benefits, treatment alternatives, as well as the technical aspects of the procedure were discussed with the patient and a full explanation was given. Patient was given the opportunity to ask questions, which were answered to their satisfaction. Time Out: A time-out was performed verifying correct patient with two identifiers, procedure, site, positioning, and special equipment (if needed). Monitors Attached: EKG BP Pulse Oximetry CO2 Pre Medication: none Side: Right Location Right IJV Prep: Chloraprep sterile drape sterile procedures used Local Anesthetic: [12] ml 1% lidocaine Central Line Lumen: Triple Procedural Details: Patient was positioned with cannulated vein in dependent position. Vein identified using ultrasound guidance. Good return of dark, nonpulsatile blood after needle placement. Guidewire threaded easily and was verified in the vein by ultrasound. Accessed vessel was transduced/manometry used indicating venous blood flow and respiratory variations prior to dilation. After dilation, the catheter advanced easily over the guide wire. Guide wire was removed and the catheter was sutured in place at [15] cm. Antibiotic disc placed and site covered with occlusive dressing. All ports aspirated and flushed. Post-procedure: Pt hemodynamically stable throughout. Patient tolerated the procedure well without apparent complications. Post placement CXR ordered. Coding
--- NOTE | 2019-07-18 17:46 | Communication Note ---
Date of Service: July 18, 2019 portable CXR taken for CV catheter placement ;in satisfactory position.
[2019-07-18] MEDS ORDERED: LACTATED RINGER'S 1,000 ML IV SCH (18:37)
--- NOTE | 2019-07-18 18:58 | Anesthesiology Progress Note ---
Date of Service July 18, 2019 Anesthesia Post Procedure Vital Signs Vital Signs: Temp Pulse Pulse Pulse Pulse Resp BP 07/18/19 17:55 36.3 C L 92 H 22 07/18/19 17:45 90 22 07/18/19 17:35 90 22 07/18/19 17:25 90 22 07/18/19 17:15 90 22 07/18/19 17:05 90 22 07/18/19 16:58 36.0 C L 90 25 H 100/48 L 07/18/19 16:55 90 23 07/18/19 16:45 92 H 22 07/18/19 16:35 94 H 20 07/18/19 16:25 91 H 20 07/18/19 16:15 93 H 20 07/18/19 16:08 36.1 C L 96 H 18 07/18/19 12:02 36.8 C 91 H 20 07/18/19 07:37 37.0 C 86 16 07/17/19 23:05 37.6 C H 95 H 18 BP BP Pulse Ox 07/18/19 17:55 130/59 L 118/43 L 98 07/18/19 17:45 132/62 117/43 L 96 07/18/19 17:35 128/55 L 107/41 L 96 07/18/19 17:25 119/48 L 118/46 L 98 07/18/19 17:15 117/42 L 117/45 L 98 07/18/19 17:05 98/37 L 111/43 L 98 07/18/19 16:58 97 07/18/19 16:55 100/48 L 96/38 L 97 07/18/19 16:45 96/37 L 90/36 L 96 07/18/19 16:35 109/39 L 100 07/18/19 16:25 112/53 L 119/60 97 07/18/19 16:15 123/45 L 115/72 100 07/18/19 16:08 92/60 L 102/57 L 95 07/18/19 12:02 154/60 H 91 07/18/19 07:37 130/68 94 07/17/19 23:05 124/69 93 Pain Intensity Abdomen: Pain Intensity: 0 Transfer of Care Handoff Completed per policy Notes Mental Status: alert / awake / arousable Patient Amnestic to Procedure: Yes Nausea / Vomiting: adequately controlled Pain: adequately controlled Airway Patency, RR, SpO2: stable & adequate BP & HR: stable & adequate and see Notes below Hydration State: stable & adequate and see Notes below Anesthetic Complications: no major complications apparent Notes: patient required PRBC's in PACU for blood loss anemia and hypotension..PT had insufficient vascular access ,hence , the reason for Right IJ vein CV catheter,for expeditious blood transfusion and vasoactive agent administration. I had spoken with DR Prado about this pt as did DR Andino.
--- NOTE | 2019-07-18 19:24 | Critical Care Consultation ---
Date of Consultation July 18, 2019 Assessment & Plan (1) Colon stricture: Reason Critically Ill: Ms Contreras is an 83 year old woman here for recovery after bowel resection and reanastomosis. Neuro: Awake alert and oriented Cam ICU negative Respiratory: Patient breathing comfortably on oxymask currently Lungs clear to auscultation Chest XR taken after procedure shows new opacity in right upper lobe. Previous XR totally clear, lung exam completely clear, could be mucus plug atelectasis will recheck Chest XR early tomorrow morning and have low threshold for beginning antibiotics with any clinical signs of infection. Procalcitonin ordered Cardiovascular: HTN Holding antihypertensive medications at this time Weaned off of phenyephrine post operatively Blood pressure well controlled Gastrointestinal: Bowel rest for anastamosis NG tube in place on low intermittent suction NPO Lesion does appear to be cancerous per initial read of pathology Appears like it may be metastatic breast cancer, but will await final pathology results Renal: Patient with creatinine in the mid ones 1.05 today, bilateral hydronephrosis and lesion of bladder visualized urology consulted planning on outpatient follow up for cystoscopy and follow up of bladder lesion on July 29 [facility] mag phos ordered tonight ID: Consolidation on RUL of CXR new since surgery patient with no symptoms or lab findings suspicious of pneumonia and normal lung exam Will hold off on antibiotics for now and repeat CXR in morning Possibly atelectasis secondary to mucus plugging, aspiration (though abnormal in right upper lobe when not in prone position) or infectious process will continue to monitor closely and recheck CBC and give incentive spirometry Endocrine: DMII on novolog sliding scale Rheum: patient with temporal arteritis on actemra every other week Patient will remain in ICU for further observation and monitoring of hemoglobin. Anticipate step down tomorrow (2) Rib lesion: (3) DVT prophylaxis: (4) CKD (chronic kidney disease), stage III: (5) Bilateral hydronephrosis: (6) Lesion of colon: (7) Dyslipidemia: (8) DM type 2 (diabetes mellitus, type 2): (9) Small bowel obstruction: (10) Lesion of bladder: (11) HX: breast cancer: (12) HTN (hypertension): (13) Temporal arteritis: Supervising Physician Co-Signing Physician Notes Dr. Anthony was resident physician during care of patient. I separately sussy luated patient for engel portions of the history and the exam. I was present during the critical portion of medical decision making, and I discussed the case with the resident. I generally agree with the findings and plan. 83-year-old female postop day 0 from a primary colon resection with reanastomosis. She has a history of breast cancer and the colonic mass appears to be consistent with breast cancer, we are awaiting final pathology report. If this is the case this would be stage IV disease it would be above and below the diaphragm. She was extubated after the operating room, she does have a right upper lobe consolidation we will use incentive spirometry as well as physiotherapy and attempt to loosen this up. If this does not resolve she may require bronchoscopy for mucoid impaction. A postobstructive process cannot be excluded however she does also appear to have some fluid in the fissure which would be consistent with a general SIRS response after having intra-abdominal surgery. History of Present Illness Reason for Consultation: Post Op mass resection, colonic resection and reanastamosis Requesting Physician: Donis Crenshaw MD Attending Physician: Ezequiel López MD History of Present Illness Kristina Contreras is a 83 year old woman with a past medical history of Breast cancer (Ten years ago), Temporal arteritis, HTN, Dyslipidemia, DMII, CKD III, Cataracts, Arthritis, Anxiety who initially was admitted for bowel obstruction. She had a CT scan that showed bladder colon and rib lesions. Biopsy was performed by gastroenterology but was unsuccessful in getting to suspicious colon lesion but was due to a stricture at splenic flexure. Dr. Crenshaw decided to take the patient for surgery and was able to remove suspicious mass as well as a section of bowel from transverse colon. Colon was reanastamosed and patient was brought to PACU. In PACU patient's hemoglobin had dropped from 10.9 to 7.7 and patient was transfused one unit of blood. Allergies Allergy/AdvReac Type Severity Reaction Status Date / Time Influenza Virus Vaccines Allergy Mild SWELLING Verified 07/12/19 08:28 Home Medications Home Medications Medication Instructions Recorded Confirmed Type Actemra 162 mg IV .Q OTHER WEEK 03/28/18 07/14/19 History alprazolam [Xanax] 0.25 mg PO DAILY PRN 03/28/18 07/12/19 History ascorbic acid (vitamin C) [Vitamin 500 mg PO QAM 03/28/18 07/12/19 History C] atenolol [Tenormin] 50 mg PO BID 03/28/18 07/12/19 History calcium carbonate-vitamin D3 1 tab PO BID 03/28/18 07/12/19 History [Os-Arcadio 500 + D3] escitalopram oxalate [Lexapro] 10 mg PO QAM 03/28/18 07/12/19 History multivitamin 1 tab PO QAM 03/28/18 07/12/19 History rosuvastatin [Crestor] 20 mg PO QAM 03/28/18 07/12/19 History cranberry 400 mg PO QAM 07/07/19 07/12/19 History famotidine [Pepcid] 20 mg PO BID 07/07/19 07/12/19 History linagliptin [Tradjenta] 5 mg PO QAM 07/07/19 07/12/19 History amitriptyline 25 mg PO HS 07/12/19 07/12/19 History amlodipine 5 mg PO DAILY 07/12/19 07/12/19 History esomeprazole magnesium [Nexium] 20 mg PO DAILY 07/12/19 07/12/19 History latanoprost 1 drp OPHTHALMIC (EYE) PM 07/12/19 07/12/19 History ondansetron HCl [Zofran] 4 mg PO Q6H PRN 07/12/19 07/12/19 History tramadol 50 mg PO Q8H PRN 07/12/19 07/12/19 History Patient History Medical History Anxiety Arthritis Cataracts, bilateral CKD (chronic kidney disease), stage III DM type 2 (diabetes mellitus, type 2) Dyslipidemia HTN (hypertension) HX: breast cancer Temporal arteritis Surgical History H/O right mastectomy Jun 2018 History of appendectomy History of cataract surgery S/P LIZBETH-BSO Family History Mother Diabetes Social History Preferred Language: Icelandic Communication Ability: Effective Wallet Assembler Required: No Beliefs That Will Affect Care: None marital status: Current Living Situation: Spouse Other Information That Helps Us Care for You: No Feels Safe at Home: Yes Safety Concerns: Feels Safe At This Time Smoking Status: Never smoker Hx Alcohol Use: No Hx Substance Use: No Review of Systems Review of Systems: Constitutional: No fevers, Chills, diaphoresis Eyes: No visual disturbances Respiratory: No shortness of breath Cardiovascular: No chest pain, no dyspnea GI: Abdominal pain worst in LUQ Physical Exam Physical Exam: Constitutional: Frail appearing 83 year old woman, lying in bed in mild distress Eyes: Anicteric sclerae, PERRLA, EOMMI bilaterally Respiratory: Lungs clear to auscultation, no increased work of breathing Cardiovascular: Heart sounds dual, regular rate regular rhythm, peripheral pulses intact GI: Bandage in place across midline of abdomen, BELA drain almost full Skin: Bruising on left side of abdomen, according to surgeon was present before procedure. Results & Data Vital Signs (Past 12 Hours) Vital Signs Temp Pulse Pulse Pulse Resp BP BP 07/18/19 19:06 90 18 125/60 07/18/19 19:00 89 13 07/18/19 18:58 89 17 07/18/19 18:36 36.5 C 87 17 139/58 L 07/18/19 17:55 36.3 C L 92 H 22 130/59 L 07/18/19 17:45 90 22 132/62 07/18/19 17:35 90 22 128/55 L 07/18/19 17:25 90 22 119/48 L 07/18/19 17:15 90 22 117/42 L 07/18/19 17:05 90 22 98/37 L 07/18/19 16:58 36.0 C L 90 25 H 100/48 L 07/18/19 16:55 90 23 100/48 L 07/18/19 16:45 92 H 22 96/37 L 07/18/19 16:35 94 H 20 07/18/19 16:25 91 H 20 112/53 L 07/18/19 16:15 93 H 20 123/45 L 07/18/19 16:08 36.1 C L 96 H 18 92/60 L 07/18/19 12:02 36.8 C 91 H 20 154/60 H 07/18/19 07:37 37.0 C 86 16 130/68 BP Pulse Ox 07/18/19 19:06 95 07/18/19 19:00 99 07/18/19 18:58 99 07/18/19 18:36 99 07/18/19 17:55 118/43 L 98 07/18/19 17:45 117/43 L 96 07/18/19 17:35 107/41 L 96 07/18/19 17:25 118/46 L 98 07/18/19 17:15 117/45 L 98 07/18/19 17:05 111/43 L 98 07/18/19 16:58 97 07/18/19 16:55 96/38 L 97 07/18/19 16:45 90/36 L 96 07/18/19 16:35 109/39 L 100 07/18/19 16:25 119/60 97 07/18/19 16:15 115/72 100 07/18/19 16:08 102/57 L 95 07/18/19 12:02 91 07/18/19 07:37 94 Resident Activity Tracking Resident Involvement: Resident Care Provided Care Provided: Adult Hospital Medicine
[2019-07-18] MEDS: cefOXitin 2,000 MG in DEXTROSE 5% 50 ML IV SCH (19:35)
--- NOTE | 2019-07-18 20:08 | Hospitalist Progress Note ---
Date of Service July 18, 2019 Assessment & Plan (1) Small bowel obstruction: Off NG tube Patient still tolerating clear liquids Status post colonoscopy, showing stricture of the colonic splenic flexure, biopsy performed, pathology pending Plan for resection of the stricture tomorrow Preoperative evaluation performed No contraindication for planned surgery tomorrow Patient is a low to moderate risk for cardiopulmonary complications This is been discussed with the patient and she is understanding, agreeable for the surgical procedure We will continue to follow closely postoperatively 07/18/2019 s/p Colon resection repeat Hg tonight, maintain Hg >8 right upper lobe opacity on CXR, saturating well on 2 L NC, not in distress, clear breath sounds BL possible atelectasis? mucus plug? will continue to monitor, discussed with ICU team - relayed to Dr. Prado continue close monitoring in the ICU (2) Lesion of bladder: Dr. Banks's notes: Appreciate urology input and recommendation To have outpatient follow-up and probable cystoscopy as an outpatient Appointment with Dr. Olivia as an outpatient on 29 July for further evaluation of hydronephrosis and suspected bladder lesion (3) Lesion of colon: Management per #1 (4) Rib lesion: Could have secondary to metastatic lesion with history of CA breast in the past and suspicion for colon and/or urinary bladder -Remote history of breast cancer, previously followed with Dr. Fong (5) Bilateral hydronephrosis: -CT notes 1 cm bladder lesion and possible transverse colon and rib lesions, bilateral hydronephrosis; possible carcinomatosis as etiology for SBO Urologist consulted -Regarding bilateral hydronephrosis, creatinine is noted to be baseline at 1.4 Outpatient follow-up recommended (6) CKD (chronic kidney disease), stage III: - baseline creat runs in the mid ones - creat improved to 1.1 - continue to monitor, avoid nephrotoxic agents when able (7) DM type 2 (diabetes mellitus, type 2): -Hgb A1c 6.9 05/2019 -Hold oral agents and utilize NovoLog per protocol while hospitalized (8) HTN (hypertension): Stable overall Continue amlodipine and atenolol (9) Temporal arteritis: -Receives Actemra injections every 14 days - Actemra May need to be placed on hold after surgery (10) Dyslipidemia: -Continue statin (11) DVT prophylaxis: -SQ heparin plan of care discussed with patient and her daughter Elaina at the bedside they are understanding, agreeable, comfortable with the plan of care Disposition Lives with family at home We will order PT and OT evaluations Subjective ff up for SBO seen s/p colon resection received 1 unit PRBC for Hg 7.7 seen resting in bed, drowsy reports pain over the surgical site no nausea, chest pain, dyspnea, palpitations, dizziness no other symptoms Review of Systems Review of Systems: All systems reviewed & are unremarkable except as noted in HPI & below Physical Exam Physical Exam: General- oriented x 3, not in distress, speaks in sentences with no effort or accessory muscle use Eyes- anicteric Neck- no JVD Lungs-clear breath sounds bilaterally Heart- normal rate, regular rhythm; no murmurs Abdomen- normal bowel sounds, nondistended, soft, dressings in place, drain in place with serosanguinous fluid Extremities- no pretibial edema, no calf tenderness Neuro- alert, oriented x 3; no gross focal neurologic deficits Skin- warm & dry Results & Data Vital Signs (Past 12 Hours) Vital Signs Temp Pulse Pulse Pulse Resp BP BP 07/18/19 19:06 90 18 125/60 07/18/19 19:00 89 13 07/18/19 18:58 89 17 07/18/19 18:36 36.5 C 87 17 139/58 L 07/18/19 17:55 36.3 C L 92 H 22 130/59 L 07/18/19 17:45 90 22 132/62 07/18/19 17:35 90 22 128/55 L 07/18/19 17:25 90 22 119/48 L 07/18/19 17:15 90 22 117/42 L 07/18/19 17:05 90 22 98/37 L 07/18/19 16:58 36.0 C L 90 25 H 100/48 L 07/18/19 16:55 90 23 100/48 L 07/18/19 16:45 92 H 22 96/37 L 07/18/19 16:35 94 H 20 07/18/19 16:25 91 H 20 112/53 L 07/18/19 16:15 93 H 20 123/45 L 07/18/19 16:08 36.1 C L 96 H 18 92/60 L 07/18/19 12:02 36.8 C 91 H 20 154/60 H BP Pulse Ox 07/18/19 19:06 95 07/18/19 19:00 99 07/18/19 18:58 99 07/18/19 18:36 99 07/18/19 17:55 118/43 L 98 07/18/19 17:45 117/43 L 96 07/18/19 17:35 107/41 L 96 07/18/19 17:25 118/46 L 98 07/18/19 17:15 117/45 L 98 07/18/19 17:05 111/43 L 98 07/18/19 16:58 97 07/18/19 16:55 96/38 L 97 07/18/19 16:45 90/36 L 96 07/18/19 16:35 109/39 L 100 07/18/19 16:25 119/60 97 07/18/19 16:15 115/72 100 07/18/19 16:08 102/57 L 95 07/18/19 12:02 91 Laboratory Results Laboratory Results - last 24 hr 07/17/19 07/17/19 07/18/19 16:26 20:49 05:31 Hgb Sodium Potassium Chloride Carbon Dioxide Anion Gap BUN Creatinine Est Cr Clr Drug Dosing Est GFR ( Amer) Est GFR (Non-Af Amer) BUN/Creatinine Ratio Glucose POC Glucose 163 H 151 H Calcium Magnesium Blood Type O Positive Blood Type Recheck Antibody Screen NEGATIVE Crossmatch See Detail 07/18/19 07/18/19 07/18/19 05:47 11:35 14:57 Hgb 7.7 L Sodium 141 Potassium 3.7 D Chloride 112 H Carbon Dioxide 22 Anion Gap 7.0 BUN 9 Creatinine 1.05 Est Cr Clr Drug Dosing 35.1 Est GFR ( Amer) 56.9 Est GFR (Non-Af Amer) 49.1 BUN/Creatinine Ratio 8.7 L Glucose 142 H POC Glucose 161 H Calcium 8.2 L Magnesium 1.4 L Blood Type Blood Type Recheck Antibody Screen Crossmatch 07/18/19 07/18/19 07/18/19 16:17 16:20 17:02 Hgb Sodium Potassium Chloride Carbon Dioxide Anion Gap BUN Creatinine Est Cr Clr Drug Dosing Est GFR ( Amer) Est GFR (Non-Af Amer) BUN/Creatinine Ratio Glucose POC Glucose 304 H* 277 H 258 H Calcium Magnesium Blood Type Blood Type Recheck Antibody Screen Crossmatch 07/18/19 07/18/19 07/18/19 17:43 20:04 Unknown Hgb Sodium Potassium Chloride Carbon Dioxide Anion Gap BUN Creatinine Est Cr Clr Drug Dosing Est GFR ( Amer) Est GFR (Non-Af Amer) BUN/Creatinine Ratio Glucose POC Glucose 275 H Pending Calcium Magnesium Blood Type Blood Type Recheck O Positive Antibody Screen Crossmatch
[2019-07-18 20:10] LABS: Hematocrit (blood only) 27.2 % (37-47); Hemoglobin 9.3 g/dL (12.0-16.0)
[2019-07-18] MEDS: MoRPHine SULFATE 4 MG/ML 1 ML CARP\\VIAL IV PRN ×2 (20:16→22:32)
[2019-07-18] MEDS: NYSTATIN SUSP 500,000 U/5 ML UDC PO SCH (20:28)
[2019-07-18] MEDS: ACETAMINOPHEN 1,000 MG/100 ML VIAL IV SCH (20:31)
[2019-07-18] MEDS: LATANOPROST 0.005% OP SOLN 2.5 ML BTL OP SCH (20:32)
[2019-07-18 20:45] LABS: BUN Creatinine Ratio 4.5 (10-20); Calcium 7.7 mg/dl (8.5-10.1); Creatinine Clr Calc Pharmacy 15.7 ml/min; Est GFR (African American) 21.6; Est GFR (Non-African American) 18.6; Magnesium 1.4 mg/dl (1.8-2.4); Potassium 3.5 mmol/L (3.5-5.1)
[2019-07-18] MEDS ORDERED: SODIUM CHLORIDE 0.9% 1000ML 500 ML IV ONE (22:17)
[2019-07-18] MEDS: MAGNESIUM SULFATE / D5W 1 GM/100 ML BAG IV SCH ×2 (23:05→23:57)
[2019-07-18] MEDS: NORMOSOL-R 1,000 ML IV SCH (23:12)
[2019-07-18] MEDS ORDERED: NORMOSOL-R 500 ML IV ONE (23:15)
[2019-07-19 00:12] LABS: Hemoglobin 8.3 g/dL (12.0-16.0)
[2019-07-19] MEDS: MAGNESIUM SULFATE / D5W 1 GM/100 ML BAG IV SCH (00:48)
[2019-07-19] MEDS: cefOXitin 2,000 MG in DEXTROSE 5% 50 ML IV SCH ×3 (00:49→13:04)
[2019-07-19 02:12] LABS: Creatinine Clr Calc Pharmacy 26.3 ml/min; Est GFR (African American) 40.2; Est GFR (Non-African American) 34.7
[2019-07-19] MEDS: NORMOSOL-R 1,000 ML IV SCH ×2 (03:04→10:31)
[2019-07-19] MEDS: ACETAMINOPHEN 1,000 MG/100 ML VIAL IV SCH ×2 (03:04→10:32)
[2019-07-19 05:00] LABS: Basophils # (auto) 0.01 K/uL (0-0.2); Basophils % (auto) 0.1 %; Eosinophils # (auto) 0.01 K/uL (0-0.5); Eosinophils % (auto) 0.1 %; Hemoglobin 8.5 g/dL (12.0-16.0); Immature Granulocytes # (auto) 0.22 K/uL (0.00-0.02); Immature Granulocytes % (auto) 1.4 %; Lymphocytes # (auto) 0.59 K/uL (1.2-3.4); Lymphocytes % (auto) 3.8 %; Mean Platelet Volume 9.9 fL (7.4-10.4); Monocytes # (auto) 1.44 K/uL (0.11-0.59); Monocytes % (auto) 9.2 %; Neutrophils # (auto) 13.44 K/uL (1.4-6.5); Neutrophils % (auto) 85.4 %; Nucleated RBC # (auto) 0.04 K/uL (0-0); Nucleated RBC % (auto) 0.3 %; Platelet Count 119 K/uL (130-400); RDW Coefficient of Variation 14.6 % (11.5-14.5); RDW Standard Deviation 49.6 fL (36.4-46.3); Red Blood Count 2.66 M/uL (4.2-5.4); White Blood Count 15.71 K/uL (4.8-10.8)
[2019-07-19] MEDS: MoRPHine SULFATE 4 MG/ML 1 ML CARP\\VIAL IV PRN ×3 (05:01→19:56)
[2019-07-19 05:26] LABS: Calcium 6.8 mg/dl (8.5-10.1); Creatinine Clr Calc Pharmacy 20.7 ml/min; Est GFR (Non-African American) 25.9; Magnesium 2.8 mg/dl (1.8-2.4); Potassium 3.9 mmol/L (3.5-5.1)
--- NOTE | 2019-07-19 06:36 | Critical Care Progress Note ---
Date of Service July 19, 2019 Assessment & Plan (1) Colon stricture: Reason Critically Ill: Ms Contreras is an 83 year old woman here for recovery after bowel resection and reanastomosis on 07/18/18 Neuro: Awake alert and oriented Cam ICU negative Respiratory: Patient breathing comfortably on 3 L currently Lungs clear to auscultation Chest XR taken after procedure shows new opacity in right upper lobe. Previous XR totally clear, lung exam completely clear, could be mucus plug atelectasis Chest XR this morning showing atelectatic changes right upper lobe Encouraged patient to increase effort with spirometry as she has been only able to do about 300 ml on it currently Cardiovascular: HTN Holding off on antihypertensive medications at this time Weaned off of phenylephrine post operatively Blood pressure well controlled Gastrointestinal: Bowel rest for anastomosis NG tube in place on low intermittent suction NPO BELA drain with serosagnuinous fluid about 800 mls collected Lesion does appear to be cancerous per initial read of pathology Appears like it may be metastatic breast cancer, but will await final pathology results Renal: Patient with creatinine in the mid ones at baseline 1.35 pre op, up to 2.34 post op and down to 1.78 this morning bilateral hydronephrosis and possibly cancerous lesion of bladder visualized urology consulted planning on outpatient follow up for cystoscopy and follow up of bladder lesion on July 29 They were called again this morning and recommended repeat CT scan Labs overnight show worsening creatinine and patient has had very poor urine output. Gave patient 1 L of fluid resuscitation overnight, will continue with normosol at 150 ml/hour ID: Consolidation on RUL of CXR new since surgery patient with no symptoms or lab findings suspicious atelectasis/mucus plug but also concern of pneumonia; normal lung exam despite some weak coughing Poor effort on incentive spirometry Will hold off on antibiotics for now Repeat CXR shows same obstruction will give bronchodilators and have respiratory therapy work with her. Endocrine: DMII on novolog sliding scale Rheum: patient with temporal arteritis on actemra every other week Heme: H and H stable, went up after transfusion, went down slightly after normosol resuscitation from dilution, does not appear to be active bleeding Patient will remain in ICU for further observation and monitoring of hemoglobin. (2) Rib lesion: (3) DVT prophylaxis: (4) CKD (chronic kidney disease), stage III: (5) Bilateral hydronephrosis: (6) Lesion of colon: (7) Dyslipidemia: (8) DM type 2 (diabetes mellitus, type 2): (9) Small bowel obstruction: (10) Lesion of bladder: (11) HX: breast cancer: (12) HTN (hypertension): (13) Temporal arteritis: Supervising Physician Co-Signing Physician Notes Dr. Anthony was resident physician during care of patient. I separately evaluated patient for engel portions of the history and the exam. I was present during the critical portion of medical decision making, and I discussed the case with the resident. I generally agree with the findings and plan. Patient currently on 3 L nasal cannula, I would consider this acute postoperative respiratory insufficiency secondary to mucoid impaction of the right upper lobe. I believe this is mildly improved as the 2 x-rays from yesterday and today show an increase in the ribs I believe she is able to take deeper breaths. She is continuing to use her incentive spirometer, we will apply a little bit of chest physiotherapy to the right upper lobe, if this does not improve in the next 12 to 24 hours I would consider bronchoscopy for removal of mucoid impaction. Certainly a postobstructive process is in the differential however I think this is rather unlikely at this point. Her acute kidney injury is improving I have reviewed the urology notes. Patient will likely benefit from a discussion regarding goals of care once formal pathology results are back. At baseline she is DNR/DNI in event of cardiac arrest. Continue close observation at this point. Patient critically ill due to acute kidney injury on chronic kidney disease and acute hypoxic respiratory failure secondary to acute postoperative respiratory insufficiency secondary to mucoid impaction of the right upper lobe. Subjective Kristina Contreras is doing okay this morning, only complaint is that she is profoundly tired. Per nursing patient did require dose of morphine and IV tylenol for surgical pain control last night she has also been having a cough. She does not have chest pain, shortness of breath, nausea/vomiting, skin rashes or any other problems on ROS. Review of Systems Review of Systems: All systems reviewed & are unremarkable except as noted in HPI & below Physical Exam Physical Exam: Constitutional: Frail appearing 83 year old woman, lying in bed in mild distress Eyes: Anicteric sclerae, PERRLA, EOMMI bilaterally Respiratory: Lungs clear to auscultation, no increased work of breathing Cardiovascular: Heart sounds dual, regular rate regular rhythm, peripheral pulses intact GI: Bandage in place across midline of abdomen, BELA drain almost full Skin: Bruising on left side of abdomen, according to surgeon was present before procedure. Results & Data Vital Signs (Past 12 Hours) Vital Signs Temp Pulse Pulse Resp BP BP Pulse Ox 07/19/19 05:00 82 22 95 07/19/19 04:30 82 26 H 94 07/19/19 04:19 80 21 132/61 94 07/19/19 04:00 80 22 94 07/19/19 03:30 81 25 H 92 07/19/19 03:20 83 22 93 07/19/19 03:19 84 17 161/60 H 93 07/19/19 02:19 84 29 H 157/62 H 91 07/19/19 02:00 84 23 91 07/19/19 01:30 84 19 94 07/19/19 01:19 86 25 H 160/67 H 94 07/19/19 01:00 85 18 93 07/19/19 00:56 87 07/19/19 00:30 84 20 94 07/19/19 00:19 85 23 158/65 H 95 07/19/19 00:00 84 19 94 07/18/19 23:12 82 18 95 07/18/19 23:00 87 17 95 07/18/19 22:36 86 19 163/65 H 90 07/18/19 22:30 36.7 C 84 12 91 07/18/19 21:08 36.7 C 87 19 152/67 H 91 07/18/19 21:00 36.7 C 87 15 90 07/18/19 20:50 88 18 90 07/18/19 20:40 90 26 H 89 L 07/18/19 20:36 91 H 26 H 147/71 H 91 07/18/19 20:30 91 H 22 91 07/18/19 20:20 91 H 18 91 07/18/19 20:10 89 25 H 93 07/18/19 20:06 90 23 158/77 H 91 07/18/19 20:00 91 H 23 97 07/18/19 19:50 92 H 18 94 07/18/19 19:40 91 H 19 96 07/18/19 19:36 90 19 142/78 H 96 07/18/19 19:30 92 H 20 97 07/18/19 19:20 90 21 97 07/18/19 19:10 88 27 H 95 07/18/19 19:06 90 18 125/60 95 07/18/19 19:00 89 13 99 07/18/19 18:58 89 17 99 07/18/19 18:36 36.5 C 87 17 139/58 L 99 Critical Care Time Critical Care Time: Yes Total Critical Care Time: 35 I have personally spent 35 minutes of critical care time in the direct management of this patient. This is a life/limb threatening event. This includes time spent evaluating patient, direct bedside care, chart review, placing orders, interpretation of diagnostic studies, discussion with c onsultants, patient, and/or family members regarding treatment decisions, as well as other required patient management activities. This time is exclusive of all separately billable procedures, and teaching time and separate from and in addition to any other critical care service time. Resident Activity Tracking Resident Involvement: Resident Care Provided Care Provided: Adult [facility]
[2019-07-19] MEDS: INSULIN ASPART 100 UNITS/ML 3 ML PEN SC SCH ×3 (06:45→17:39)
--- NOTE | 2019-07-19 06:54 | XRay Report ---
XR chest 1V portable CLINICAL HISTORY: hypoxia dyspnea COMPARISON STUDY: 07/18/2019 FINDINGS: Postoperative changes of the upper abdomen are again noted. Nasogastric tube appears to be within the stomach. The left lung remains clear. Right upper lobe atelectatic changes and associated volume loss are similar. Right base is considered clear. Trace amount of subdiaphragmatic free air in a postoperative basis. IMPRESSION: Unchanged right upper lobe atelectatic change and/or consolidative process right pulmona ry apex. All remaining findings are unchanged from the prior study. ACT 112: Negative or not required by law. The above report was generated using voice recognition software. It may contain grammatical, syntax or spelling errors. Electronically signed by: Steven Douglas M.D. 07/19/2019 6:52 AM
[2019-07-19 07:01] LABS: Phosphorus 3.3 mg/dl (2.5-4.9)
[2019-07-19] MEDS ORDERED: ACETYLCYSTEINE 10% INHAL SOLN 4 ML **DISPENSED BY RESP. INH SCH (07:30)
[2019-07-19] MEDS: ATENOLOL 50 MG TABLET PO SCH ×2 (07:56→19:53)
[2019-07-19] MEDS: ESCITALOPRAM OXALATE 10 MG TAB PO SCH (07:56)
[2019-07-19] MEDS: FAMOTIDINE 20 MG in SYRINGE 3 ML IV SCH (07:57)
[2019-07-19] MEDS: NYSTATIN SUSP 500,000 U/5 ML UDC PO SCH ×4 (07:58→19:54)
--- NOTE | 2019-07-19 07:58 | CT Scan Report ---
CT abdomen wo con CT DOSE: 189.06 mGy.cm HISTORY: Pain hydonephrosis/ worsened SOLITARIO TECHNIQUE: Multiaxial CT images of the abdomen was performed without contrast. A dose lowering techn ique was utilized adhering to the principles of ALARA. COMPARISON STUDY: 07/12/2019 FINDINGS: Interval development of a right pleural effusion. Trace pleural fluid left lung base. Interval placement of a nasogastric tube within the stomach. Interval midline incision. Drainage catheters are are present in the mid and left lateral abdominal r egion. The abdominal ascites is diminished. Gallbladder has demonstrated an increase in distention. Pancreas remains fatty replaced. Small amount of free intra-abdominal air on a postoperative basis. Bhavin to a lesser extent left hydronephrosis considered stable. Bilateral renal cysts also stable. Improved upper abdominal bowel pattern with no significant bowel distention at the current time. Interval development of enlargement of the right rectus musculature not present on the prior study. T his measures 6 x 4 cm. Interval development of a trace amount of body wall anasarca. The sclerotic process involving the rig ht 10th rib is unchanged. IMPRESSION: 1. Interval development of a right to a much lesser extent small left pleural effusion.. 2. Interval development of a small amount of intra-abdominal air presumably a postoperative basis. 3. Interval placement of a nasogastric tube within the stomach as well as several drainage catheters of the upper abdomen. 4. Interval decompression of the bowel distention previously described. 5. No significant abdominal ascites on the current study considered improved. 6. Increased distention of the gallbladder. 7. Interval development of a right rectus sheath hematoma measuring 6 x 4 cm 8. Interval resolution and/or near complete resolution of the abdominal ascites. ACT 112: Negative or not required by law. The above report was generated using voice recognition software. It may contain grammatical, syntax or spelling errors. Electronically signed by: Steven Douglas M.D. 07/19/2019 7:57 AM
--- NOTE | 2019-07-19 08:12 | Surgery Progress Note ---
Date of Service July 19, 2019 Assessment & Plan (1) Colon stricture: 07/19/19 pod 1 The fluid status was reviewed creatinines jumped up to 1.7 her urine output this morning is improved as dilute Her hemoglobin is 8.7 she received 1 unit postoperatively I discussed her situation with the wedding designer Pa heparin could be restarted 5000 units every 12 hours at their discretion We will leave the NG tube in for today although a very small caliber NG tube at the time of the surgery I positioned in the stomach and to me it felt to be a larger tube than what I see now Fluid management at this time we will leave to the hospitalist wedding designer Patient underwent colonoscopy today which revealed a colonic stricture around her splenic flexure. Scope could not traverse the area. Biopsies were taken and the area of concern was tattooed. We discussed the findings with GI physician Dr. Travis who is concerned there may be a malignancy in this area. Options were discussed with the patient and her daughter regarding temporizing it with a colonic stent vs surgical resection. At this time both patient and daughter agree to proceed with surgical resection. We will book patient for the OR tomorrow. - Okay for clear liquid diet today, make NPO at midnight - CEA ordered - Will order Neomycin and Erythromycin 1g to be given at 2pm, 4pm, and 10pm - SCD's ordered, continue SQH - Discussed with the hospitalist service who will pre-op patient prior to surgery - Patient was seen and examined with Dr. Andino Subjective 07/19/19 pod 1 Patient is alert coherent no distress intra-abdominal findings and surgery was explained to her She has been out of bed Kristina Arevalocher is doing okay this morning, only complaint is that she is profoundly tired. Per nursing patient did require dose of morphine and IV tylenol for surgical pain control last night she has also been having a cough. She does not have chest pain, shortness of breath, nausea/vomiting, skin rashes or any other problems on ROS. Physical Exam Physical Exam: As stated above she is alert coherent comfortable The abdominal dressing is intact dry the [place]-Keane drainage is serous slightly sanguinous The abdomen is minimally distended consistent with postoperative day 1 Constitutional: WD/WN, vitals as above well developed, well nourished and average body habitus Eyes: PERRL, conjunctivae normal, anicteric sclerae ENMT: external ear and nose normal, oropharynx normal Respiratory: normal respiratory effort, lungs clear to auscultation Cardiovascular: RRR, no murmur, no edema Results & Data Vital Signs (Past 12 Hours) Vital Signs Temp Pulse Pulse Resp BP BP Pulse Ox 07/19/19 07:00 84 15 95 07/19/19 06:31 83 18 07/19/19 06:29 84 15 122/61 07/19/19 06:14 85 17 147/58 H 07/19/19 06:12 85 17 140/53 L 94 07/19/19 05:30 85 19 94 07/19/19 05:18 86 24 146/61 H 94 07/19/19 05:00 82 22 95 07/19/19 04:30 82 26 H 94 07/19/19 04:19 80 21 132/61 94 07/19/19 04:00 80 22 94 07/19/19 03:30 81 25 H 92 07/19/19 03:20 83 22 93 07/19/19 03:19 84 17 161/60 H 93 07/19/19 02:19 84 29 H 157/62 H 91 07/19/19 02:00 84 23 91 07/19/19 01:30 84 19 94 07/19/19 01:19 86 25 H 160/67 H 94 07/19/19 01:00 85 18 93 07/19/19 00:56 87 07/19/19 00:30 84 20 94 07/19/19 00:19 85 23 158/65 H 95 07/19/19 00:00 84 19 94 07/18/19 23:12 82 18 95 07/18/19 23:00 87 17 95 07/18/19 22:36 86 19 163/65 H 90 07/18/19 22:30 36.7 C 84 12 91 07/18/19 21:08 36.7 C 87 19 152/67 H 91 07/18/19 21:00 36.7 C 87 15 90 07/18/19 20:50 88 18 90 07/18/19 20:40 90 26 H 89 L 07/18/19 20:36 91 H 26 H 147/71 H 91 07/18/19 20:30 91 H 22 91 07/18/19 20:20 91 H 18 91 07/18/19 20:10 89 25 H 93 PG Care Time/CCT Total # of Minutes Spent Total Time Spent with Patient: Total time spent is greater than 50% in coordination of care (as documented) at patient's floor/unit and/or counseling patient:
--- NOTE | 2019-07-19 09:43 | Urology Progress Note ---
Date of Service July 19, 2019 Assessment & Plan (1) Bilateral hydronephrosis: A/P 83-year-old female with chronic bilateral hydronephrosis, worsening renal function postoperative day #1 status post open colon resection. CT scan findings from this morning argue against a significant post renal component to the patient's current issues with renal function. Would continue Weber catheter drainage until her renal insufficiency and mobility have improved. Continue care per surgical and ICU services. Please recall our service PRN any further questions or concerns regarding her urologic care. Outpatient follow-up as scheduled if the patient is discharged from the hospital and sufficiently recovered from her inpatient events. If not, this can be delayed as necessary. Subjective 83-year-old female, known to our service, postoperative day #1 status post laparoscopic converted to open colon resection. Her interval notes since being seen approximately a week ago by our service are reviewed. Patient with a nonacute questionable bladder mass pending outpatient cystoscopy who has an appointment to see Dr. Olivia in 10 days time in our office. Her cytologies checked as an inpatient are noted to be negative for high-grade urothelial malignancy. Her history of bilateral, likely chronic hydronephrosis without significant apparent functional obstruction is noted. Recall this morning due to fluctuation in elevation of the patient's creatinine in the postoperative context. She is currently in ICU, care is discussed with the ICU service. Noncontrast CT scan to evaluate for worsening hydronephrosis recommended this morning. Weber in place putting out clear urine. Images were personally reviewed and compared to the patient's prior CT scan which was performed with contrast. If anything, it appears that there has been a slight improvement in her degree of hydronephrosis, right greater than left. Patient is alert and oriented in the unit and complains of expected symptoms postoperative day #1 after her significant intervention. NG tube remains in place, general surgery notes reviewed. Review of Systems Constitutional: no fever and no chills Eyes: no diplopia Ear, Nose, Mouth, Throat: no ear trauma Respiratory: no hemoptysis Cardiovascular: no chest pain Integumentary: no acne and no boil Neurologic: no paralysis Psychiatric: no hopelessness Allergy / Immunological: no tongue swelling Physical Exam Constitutional: no acute distress NG tube in position. Eyes: eyes not dysmorphic ENMT: Ears: no external ear abnormality Neck: trachea midline; no anterior neck swelling Respiratory: no respiratory distress and does not use accessory muscles Cardiovascular: Vessels: radial pulses present Musculoskeletal: Head/Neck/Chest: normocephalic and neck supple Skin: normal turgor Neurologic: awake; not obtunded Lymphatic: no lymphadenopathy Results & Data Vital Signs (Past 12 Hours) Vital Signs Temp Pulse Resp BP Pulse Ox 07/19/19 08:19 84 20 152/83 H 94 07/19/19 08:00 36.8 C 86 27 H 94 07/19/19 07:43 90 22 07/19/19 07:18 85 20 127/71 95 07/19/19 07:00 84 15 95 07/19/19 06:31 83 18 07/19/19 06:29 84 15 122/61 07/19/19 06:14 85 17 147/58 H 07/19/19 06:12 85 17 140/53 L 94 07/19/19 05:30 85 19 94 07/19/19 05:18 86 24 146/61 H 94 07/19/19 05:00 82 22 95 07/19/19 04:30 82 26 H 94 07/19/19 04:19 80 21 132/61 94 07/19/19 04:00 80 22 94 07/19/19 03:30 81 25 H 92 07/19/19 03:20 83 22 93 07/19/19 03:19 84 17 161/60 H 93 07/19/19 02:19 84 29 H 157/62 H 91 07/19/19 02:00 84 23 91 07/19/19 01:30 84 19 94 07/19/19 01:19 86 25 H 160/67 H 94 07/19/19 01:00 85 18 93 07/19/19 00:56 87 07/19/19 00:30 84 20 94 07/19/19 00:19 85 23 158/65 H 95 07/19/19 00:00 84 19 94 07/18/19 23:12 82 18 95 07/18/19 23:00 87 17 95 07/18/19 22:36 86 19 163/65 H 90 07/18/19 22:30 36.7 C 84 12 91 Laboratory Results Laboratory Results - last 48 hr 07/17/19 07/17/19 07/17/19 12:02 12:40 16:26 WBC RBC Hgb Hct MCV MCH MCHC RDW Std Deviation RDW Coeff of Jennifer Plt Count MPV Immature Gran % (Auto) Neut % (Auto) Lymph % (Auto) [place] % (Auto) Eos % (Auto) Baso % (Auto) Immature Gran # (Auto) Neut # (Auto) Lymph # (Auto) [place] # (Auto) Eos # (Auto) Baso # (Auto) Absolute Nucleated RBC Nucleated RBC % (auto) Sodium Potassium Chloride Carbon Dioxide Anion Gap BUN Creatinine Est Cr Clr Drug Dosing Est GFR ( Amer) Est GFR (Non-Af Amer) BUN/Creatinine Ratio Glucose POC Glucose 151 H Lactate Calcium Ionized Calcium Phosphorus Magnesium Total Creatine Kinase Carcinoembryonic Ag 1.4 Nasal Screen MRSA (PCR) Blood Type O Positive Blood Type Recheck Antibody Screen NEGATIVE Crossmatch See Detail 07/17/19 07/17/19 07/18/19 17:27 20:49 05:31 WBC RBC Hgb Hct MCV MCH MCHC RDW Std Deviation RDW Coeff of Jennifer Plt Count MPV Immature Gran % (Auto) Neut % (Auto) Lymph % (Auto) [place] % (Auto) Eos % (Auto) Baso % (Auto) Immature Gran # (Auto) Neut # (Auto) Lymph # (Auto) [place] # (Auto) Eos # (Auto) Baso # (Auto) Absolute Nucleated RBC Nucleated RBC % (auto) Sodium Potassium Chloride Carbon Dioxide Anion Gap BUN Creatinine Est Cr Clr Drug Dosing Est GFR ( Amer) Est GFR (Non-Af Amer) BUN/Creatinine Ratio Glucose POC Glucose 160 H 163 H 151 H Lactate Calcium Ionized Calcium Phosphorus Magnesium Total Creatine Kinase Carcinoembryonic Ag Nasal Screen MRSA (PCR) Blood Type Blood Type Recheck Antibody Screen Crossmatch 07/18/19 07/18/19 07/18/19 05:47 11:35 14:57 WBC RBC Hgb 7.7 L Hct MCV MCH MCHC RDW Std Deviation RDW Coeff of Jennifer Plt Count MPV Immature Gran % (Auto) Neut % (Auto) Lymph % (Auto) [place] % (Auto) Eos % (Auto) Baso % (Auto) Immature Gran # (Auto) Neut # (Auto) Lymph # (Auto) [place] # (Auto) Eos # (Auto) Baso # (Auto) Absolute Nucleated RBC Nucleated RBC % (auto) Sodium 141 Potassium 3.7 D Chloride 112 H Carbon Dioxide 22 Anion Gap 7.0 BUN 9 Creatinine 1.05 Est Cr Clr Drug Dosing 35.1 Est GFR ( Amer) 56.9 Est GFR (Non-Af Amer) 49.1 BUN/Creatinine Ratio 8.7 L Glucose 142 H POC Glucose 161 H Lactate Calcium 8.2 L Ionized Calcium Phosphorus Magnesium 1.4 L Total Creatine Kinase Carcinoembryonic Ag Nasal Screen MRSA (PCR) Blood Type Blood Type Recheck Antibody Screen Crossmatch 07/18/19 07/18/19 07/18/19 16:17 16:20 17:02 WBC RBC Hgb Hct MCV MCH MCHC RDW Std Deviation RDW Coeff of Jennifer Plt Count MPV Immature Gran % (Auto) Neut % (Auto) Lymph % (Auto) [place] % (Auto) Eos % (Auto) Baso % (Auto) Immature Gran # (Auto) Neut # (Auto) Lymph # (Auto) [place] # (Auto) Eos # (Auto) Baso # (Auto) Absolute Nucleated RBC Nucleated RBC % (auto) Sodium Potassium Chloride Carbon Dioxide Anion Gap BUN Creatinine Est Cr Clr Drug Dosing Est GFR ( Amer) Est GFR (Non-Af Amer) BUN/Creatinine Ratio Glucose POC Glucose 304 H* 277 H 258 H Lactate Calcium Ionized Calcium Phosphorus Magnesium Total Creatine Kinase Carcinoembryonic Ag Nasal Screen MRSA (PCR) Blood Type Blood Type Recheck Antibody Screen Crossmatch 07/18/19 07/18/19 07/18/19 17:43 18:30 19:58 WBC RBC Hgb 9.3 L Hct 27.2 L MCV MCH MCHC RDW Std Deviation RDW Coeff of Jennifer Plt Count MPV Immature Gran % (Auto) Neut % (Auto) Lymph % (Auto) [place] % (Auto) Eos % (Auto) Baso % (Auto) Immature Gran # (Auto) Neut # (Auto) Lymph # (Auto) [place] # (Auto) Eos # (Auto) Baso # (Auto) Absolute Nucleated RBC Nucleated RBC % (auto) Sodium Potassium Chloride Carbon Dioxide Anion Gap BUN Creatinine Est Cr Clr Drug Dosing Est GFR ( Amer) Est GFR (Non-Af Amer) BUN/Creatinine Ratio Glucose POC Glucose 275 H Lactate Calcium Ionized Calcium Phosphorus Magnesium Total Creatine Kinase Carcinoembryonic Ag Nasal Screen MRSA (PCR) Negative Blood Type Blood Type Recheck Antibody Screen Crossmatch 07/18/19 07/18/1920 19:58 20:04 23:19 WBC RBC Hgb Hct MCV MCH MCHC RDW Std Deviation RDW Coeff of Jennifer Plt Count MPV Immature Gran % (Auto) Neut % (Auto) Lymph % (Auto) [place] % (Auto) Eos % (Auto) Baso % (Auto) Immature Gran # (Auto) Neut # (Auto) Lymph # (Auto) [place] # (Auto) Eos # (Auto) Baso # (Auto) Absolute Nucleated RBC Nucleated RBC % (auto) Sodium 141 Potassium 3.5 Chloride 113 H Carbon Dioxide 22 Anion Gap 6.0 BUN 11 Creatinine 2.34 H D Est Cr Clr Drug Dosing 15.7 Est GFR ( Amer) 21.6 Est GFR (Non-Af Amer) 18.6 BUN/Creatinine Ratio 4.5 L Glucose 135 H POC Glucose 135 H 141 H Lactate Calcium 7.7 L Ionized Calcium Phosphorus Magnesium 1.4 L Total Creatine Kinase Carcinoembryonic Ag Nasal Screen MRSA (PCR) Blood Type Blood Type Recheck Antibody Screen Crossmatch 07/18/19 07/18/19 07/19/19 23:54 Unknown 01:39 WBC RBC Hgb 8.3 L Hct 24.0 L MCV MCH MCHC RDW Std Deviation RDW Coeff of Jennifer Plt Count MPV Immature Gran % (Auto) Neut % (Auto) Lymph % (Auto) [place] % (Auto) Eos % (Auto) Baso % (Auto) Immature Gran # (Auto) Neut # (Auto) Lymph # (Auto) [place] # (Auto) Eos # (Auto) Baso # (Auto) Absolute Nucleated RBC Nucleated RBC % (auto) Sodium Potassium Chloride Carbon Dioxide Anion Gap BUN Creatinine 1.40 H D Est Cr Clr Drug Dosing 26.3 Est GFR ( Amer) 40.2 Est GFR (Non-Af Amer) 34.7 BUN/Creatinine Ratio Glucose POC Glucose Lactate Calcium Ionized Calcium Phosphorus Magnesium Total Creatine Kinase Carcinoembryonic Ag Nasal Screen MRSA (PCR) Blood Type Blood Type Recheck O Positive Antibody Screen Crossmatch 07/19/19 07/19/19 07/19/19 04:49 04:49 06:05 WBC 15.71 H RBC 2.66 L Hgb 8.5 L Hct 25.0 L MCV 94.0 MCH 32.0 MCHC 34.0 RDW Std Deviation 49.6 H RDW Coeff of Jennifer 14.6 H Plt Count 119 L MPV 9.9 Immature Gran % (Auto) 1.4 Neut % (Auto) 85.4 Lymph % (Auto) 3.8 [place] % (Auto) 9.2 Eos % (Auto) 0.1 Baso % (Auto) 0.1 Immature Gran # (Auto) 0.22 H Neut # (Auto) 13.44 H Lymph # (Auto) 0.59 L [place] # (Auto) 1.44 H Eos # (Auto) 0.01 Baso # (Auto) 0.01 Absolute Nucleated RBC 0.04 H Nucleated RBC % (auto) 0.3 Sodium 138 Potassium 3.9 Chloride 110 H Carbon Dioxide 17 L Anion Gap 11.0 BUN 11 Creatinine 1.78 H D Est Cr Clr Drug Dosing 20.7 Est GFR ( Amer) 30.0 Est GFR (Non-Af Amer) 25.9 BUN/Creatinine Ratio 6.0 L Glucose 210 H POC Glucose Lactate 1.0 Calcium 6.8 L Ionized Calcium Phosphorus Magnesium 2.8 H Total Creatine Kinase Carcinoembryonic Ag Nasal Screen MRSA (PCR) Blood Type Blood Type Recheck Antibody Screen Crossmatch 07/19/19 07/19/19 07/19/19 06:05 06:10 08:52 WBC RBC Hgb Hct MCV MCH MCHC RDW Std Deviation RDW Coeff of Jennifer Plt Count MPV Immature Gran % (Auto) Neut % (Auto) Lymph % (Auto) [place] % (Auto) Eos % (Auto) Baso % (Auto) Immature Gran # (Auto) Neut # (Auto) Lymph # (Auto) [place] # (Auto) Eos # (Auto) Baso # (Auto) Absolute Nucleated RBC Nucleated RBC % (auto) Sodium Potassium Chloride Carbon Dioxide Anion Gap BUN Creatinine Est Cr Clr Drug Dosing Est GFR ( Amer) Est GFR (Non-Af Amer) BUN/Creatinine Ratio Glucose POC Glucose 218 H Lactate Calcium Ionized Calcium 1.02 L Phosphorus 3.3 Magnesium Total Creatine Kinase 412 H Carcinoembryonic Ag Nasal Screen MRSA (PCR) Blood Type Blood Type Recheck Antibody Screen Crossmatch PG Care Time/CCT Total # of Minutes Spent Total Time Spent with Patient: Total time spent is greater than 50% in coordination of care (as documented) at patient's floor/unit and/or counseling patient:
[2019-07-19] MEDS ORDERED: TPN/PPN CONSULT PHARMACY PRN (09:48)
--- NOTE | 2019-07-19 10:01 | Hospitalist Progress Note ---
Date of Service July 19, 2019 Assessment & Plan (1) Small bowel obstruction: (1) Small bowel obstruction: Off NG tube Patient still tolerating clear liquids Status post colonoscopy, showing stricture of the colonic splenic flexure, biopsy performed, pathology pending s/p Colon resection 07/19/2019 Transfused 1 unit of packed RBCs for hemoglobin 7.7, hemoglobin now stable at 8.5 right upper lobe opacity on CXR, saturating well on 2 L NC, not in distress, clear breath sounds BL possible atelectasis? mucus plug? Continue incentive spirometry, heading pinner following will continue to monitor, discussed with ICU team continue close monitoring in the ICU TPN started (2) Lesion of bladder: Dr. Banks's notes: Appreciate urology input and recommendation To have outpatient follow-up and probable cystoscopy as an outpatient Appointment with Dr. Olivia as an outpatient on 29 July for further evaluation of hydronephrosis and suspected bladder lesion (3) Lesion of colon: Management per #1 (4) Rib lesion: Could have secondary to metastatic lesion with history of CA breast in the past and suspicion for colon and/or urinary bladder -Remote history of breast cancer, previously followed with Dr. Fong (5) Bilateral hydronephrosis: -CT notes 1 cm bladder lesion and possible transverse colon and rib lesions, bilateral hydronephrosis; possible carcinomatosis as etiology for SBO Urologist consulted -Regarding bilateral hydronephrosis, creatinine is noted to be baseline at 1.4 Outpatient follow-up recommended (6) acute renal failure on CKD (chronic kidney disease), stage III: - baseline creat runs in the mid ones -Noted postoperatively Creatinine from 1.05-2 0.3-1.78 -From relative hypotension perioperatively? Continue to monitor (7) DM type 2 (diabetes mellitus, type 2): -Hgb A1c 6.9 05/2019 -Hold oral agents and utilize NovoLog per protocol while hospitalized (8) HTN (hypertension): Stable overall Continue amlodipine and atenolol (9) Temporal arteritis: -Receives Actemra injections every 14 days - Actemra May need to be placed on hold after surgery (10) Dyslipidemia: -Continue statin (11) DVT prophylaxis: -SCDs Disposition Lives with family at home We will order PT and OT evaluations Subjective Follow-up small bowel obstruction, colonic resection Seen resting in bed, awake and alert, appears more comfortable States pain is well controlled now Denies nausea, chest pain, shortness of breath No other symptoms Review of Systems Review of Systems: All systems reviewed & are unremarkable except as noted in HPI & below Physical Exam Physical Exam: General- oriented x 3, not in distress, speaks in sentences with no effort or accessory muscle use Eyes- anicteric Neck- no JVD Lungs- clear breath sounds, no crackles, no wheezing bilaterally Heart- normal rate, regular rhythm; no murmurs Abdomen- normal bowel sounds, nondistended, soft, Dressing in place, drain in place, with serosanguineous output Mild hematoma around the dressing site wound the right side Extremities- no pretibial edema, no calf tenderness Neuro- alert, oriented x 3; no gross focal neurologic deficits Skin- warm & dry Results & Data Vital Signs (Past 12 Hours) Vital Signs Temp Pulse Resp BP Pulse Ox 07/19/19 08:19 84 20 152/83 H 94 07/19/19 08:00 36.8 C 86 27 H 94 07/19/19 07:43 90 22 07/19/19 07:18 85 20 127/71 95 07/19/19 07:00 84 15 95 07/19/19 06:31 83 18 07/19/19 06:29 84 15 122/61 07/19/19 06:14 85 17 147/58 H 07/19/19 06:12 85 17 140/53 L 94 07/19/19 05:30 85 19 94 07/19/19 05:18 86 24 146/61 H 94 07/19/19 05:00 82 22 95 07/19/19 04:30 82 26 H 94 07/19/19 04:19 80 21 132/61 94 07/19/19 04:00 80 22 94 07/19/19 03:30 81 25 H 92 07/19/19 03:20 83 22 93 07/19/19 03:19 84 17 161/60 H 93 07/19/19 02:19 84 29 H 157/62 H 91 07/19/19 02:00 84 23 91 07/19/19 01:30 84 19 94 07/19/19 01:19 86 25 H 160/67 H 94 07/19/19 01:00 85 18 93 07/19/19 00:56 87 07/19/19 00:30 84 20 94 07/19/19 00:19 85 23 158/65 H 95 07/19/19 00:00 84 19 94 07/18/19 23:12 82 18 95 07/18/19 23:00 87 17 95 07/18/19 22:36 86 19 163/65 H 90 07/18/19 22:30 36.7 C 84 12 91 Laboratory Results Laboratory Results - last 24 hr 07/17/19 07/18/19 07/18/19 16:26 16:17 16:20 WBC RBC Hgb Hct MCV MCH MCHC RDW Std Deviation RDW Coeff of Jennifer Plt Count MPV Immature Gran % (Auto) Neut % (Auto) Lymph % (Auto) [place] % (Auto) Eos % (Auto) Baso % (Auto) Immature Gran # (Auto) Neut # (Auto) Lymph # (Auto) [place] # (Auto) Eos # (Auto) Baso # (Auto) Absolute Nucleated RBC Nucleated RBC % (auto) Sodium Potassium Chloride Carbon Dioxide Anion Gap BUN Creatinine Est Cr Clr Drug Dosing Est GFR ( Amer) Est GFR (Non-Af Amer) BUN/Creatinine Ratio Glucose POC Glucose 304 H* 277 H Lactate Calcium Ionized Calcium Phosphorus Magnesium Total Creatine Kinase Nasal Screen MRSA (PCR) Blood Type O Positive Antibody Screen NEGATIVE Crossmatch See Detail 07/18/19 07/18/19 07/18/19 17:02 17:43 18:30 WBC RBC Hgb Hct MCV MCH MCHC RDW Std Deviation RDW Coeff of Jennifer Plt Count MPV Immature Gran % (Auto) Neut % (Auto) Lymph % (Auto) [place] % (Auto) Eos % (Auto) Baso % (Auto) Immature Gran # (Auto) Neut # (Auto) Lymph # (Auto) [place] # (Auto) Eos # (Auto) Baso # (Auto) Absolute Nucleated RBC Nucleated RBC % (auto) Sodium Potassium Chloride Carbon Dioxide Anion Gap BUN Creatinine Est Cr Clr Drug Dosing Est GFR ( Amer) Est GFR (Non-Af Amer) BUN/Creatinine Ratio Glucose POC Glucose 258 H 275 H Lactate Calcium Ionized Calcium Phosphorus Magnesium Total Creatine Kinase Nasal Screen MRSA (PCR) Negative Blood Type Antibody Screen Crossmatch 07/18/19 07/18/19 07/18/19 19:58 19:58 20:04 WBC RBC Hgb 9.3 L Hct 27.2 L MCV MCH MCHC RDW Std Deviation RDW Coeff of Jennifer Plt Count MPV Immature Gran % (Auto) Neut % (Auto) Lymph % (Auto) [place] % (Auto) Eos % (Auto) Baso % (Auto) Immature Gran # (Auto) Neut # (Auto) Lymph # (Auto) [place] # (Auto) Eos # (Auto) Baso # (Auto) Absolute Nucleated RBC Nucleated RBC % (auto) Sodium 141 Potassium 3.5 Chloride 113 H Carbon Dioxide 22 Anion Gap 6.0 BUN 11 Creatinine 2.34 H D Est Cr Clr Drug Dosing 15.7 Est GFR ( Amer) 21.6 Est GFR (Non-Af Amer) 18.6 BUN/Creatinine Ratio 4.5 L Glucose 135 H POC Glucose 135 H Lactate Calcium 7.7 L Ionized Calcium Phosphorus Magnesium 1.4 L Total Creatine Kinase Nasal Screen MRSA (PCR) Blood Type Antibody Screen Crossmatch 07/18/19 07/18/19 07/19/19 23:19 23:54 01:39 WBC RBC Hgb 8.3 L Hct 24.0 L MCV MCH MCHC RDW Std Deviation RDW Coeff of Jennifer Plt Count MPV Immature Gran % (Auto) Neut % (Auto) Lymph % (Auto) [place] % (Auto) Eos % (Auto) Baso % (Auto) Immature Gran # (Auto) Neut # (Auto) Lymph # (Auto) [place] # (Auto) Eos # (Auto) Baso # (Auto) Absolute Nucleated RBC Nucleated RBC % (auto) Sodium Potassium Chloride Carbon Dioxide Anion Gap BUN Creatinine 1.40 H D Est Cr Clr Drug Dosing 26.3 Est GFR ( Amer) 40.2 Est GFR (Non-Af Amer) 34.7 BUN/Creatinine Ratio Glucose POC Glucose 141 H Lactate Calcium Ionized Calcium Phosphorus Magnesium Total Creatine Kinase Nasal Screen MRSA (PCR) Blood Type Antibody Screen Crossmatch 07/19/19 07/19/19 07/19/19 04:49 04:49 06:05 WBC 15.71 H RBC 2.66 L Hgb 8.5 L Hct 25.0 L MCV 94.0 MCH 32.0 MCHC 34.0 RDW Std Deviation 49.6 H RDW Coeff of Jennifer 14.6 H Plt Count 119 L MPV 9.9 Immature Gran % (Auto) 1.4 Neut % (Auto) 85.4 Lymph % (Auto) 3.8 [place] % (Auto) 9.2 Eos % (Auto) 0.1 Baso % (Auto) 0.1 Immature Gran # (Auto) 0.22 H Neut # (Auto) 13.44 H Lymph # (Auto) 0.59 L [place] # (Auto) 1.44 H Eos # (Auto) 0.01 Baso # (Auto) 0.01 Absolute Nucleated RBC 0.04 H Nucleated RBC % (auto) 0.3 Sodium 138 Potassium 3.9 Chloride 110 H Carbon Dioxide 17 L Anion Gap 11.0 BUN 11 Creatinine 1.78 H D Est Cr Clr Drug Dosing 20.7 Est GFR ( Amer) 30.0 Est GFR (Non-Af Amer) 25.9 BUN/Creatinine Ratio 6.0 L Glucose 210 H POC Glucose Lactate 1.0 Calcium 6.8 L Ionized Calcium Phosphorus Magnesium 2.8 H Total Creatine Kinase Nasal Screen MRSA (PCR) Blood Type Antibody Screen Crossmatch 07/19/19 07/19/19 07/19/19 06:05 06:10 08:52 WBC RBC Hgb Hct MCV MCH MCHC RDW Std Deviation RDW Coeff of Jennifer Plt Count MPV Immature Gran % (Auto) Neut % (Auto) Lymph % (Auto) [place] % (Auto) Eos % (Auto) Baso % (Auto) Immature Gran # (Auto) Neut # (Auto) Lymph # (Auto) [place] # (Auto) Eos # (Auto) Baso # (Auto) Absolute Nucleated RBC Nucleated RBC % (auto) Sodium Potassium Chloride Carbon Dioxide Anion Gap BUN Creatinine Est Cr Clr Drug Dosing Est GFR ( Amer) Est GFR (Non-Af Amer) BUN/Creatinine Ratio Glucose POC Glucose 218 H Lactate Calcium Ionized Calcium 1.02 L Phosphorus 3.3 Magnesium Total Creatine Kinase 412 H Nasal Screen MRSA (PCR) Blood Type Antibody Screen Crossmatch 07/19/19 11:28 WBC RBC Hgb Hct MCV MCH MCHC RDW Std Deviation RDW Coeff of Jennifer Plt Count MPV Immature Gran % (Auto) Neut % (Auto) Lymph % (Auto) [place] % (Auto) Eos % (Auto) Baso % (Auto) Immature Gran # (Auto) Neut # (Auto) Lymph # (Auto) [place] # (Auto) Eos # (Auto) Baso # (Auto) Absolute Nucleated RBC Nucleated RBC % (auto) Sodium Potassium Chloride Carbon Dioxide Anion Gap BUN Creatinine Est Cr Clr Drug Dosing Est GFR ( Amer) Est GFR (Non-Af Amer) BUN/Creatinine Ratio Glucose POC Glucose 189 H Lactate Calcium Ionized Calcium Phosphorus Magnesium Total Creatine Kinase Nasal Screen MRSA (PCR) Blood Type Antibody Screen Crossmatch
--- NOTE | 2019-07-19 10:39 | Pharmacy Report ---
Pharmacy PN Initial Consult - Date of Service July 19, 2019 - Scope Pharmacy has been consulted to manage parenteral nutrition orders and order appropriate labs. As part of the Nutrition Support Team guidelines, pharmacy will work in conjunction with dietary when determining the patients caloric needs. - Subjective The patient is a 83 year old F admitted on 07/12/19 11:29 for SBO. Patient is to receive parenteral nutrition for [INDICATION]. Pertinent PMH: - Objective Height: 5 ft 4 in Weight: 64.6 kg Diet: NPO Vascular Access:: Central, right IJ Intake & Output (Last 24Hrs): Intake & Output 07/17/19 07/18/19 07/19/19 07/20/19 06:59 06:59 06:59 06:59 Intake Total 1050.000 / 6261.689 8202.742 / 5488.742 1060 / 1060 Output Total 51 / 51 3 / 3 1720 / 1720 Balance -51 / -51 1047.000 / 8766.403 3447.742 / 3768.742 1060 / 1060 Weight 60.4 kg 60.4 kg 64.6 kg Laboratory Data (Last 24 Hrs):: 07/18/19 07/19/19 07/19/19 19:58 01:39 04:49 Sodium 141 138 Potassium 3.5 3.9 Chloride 113 H 110 H Carbon Dioxide 22 17 L BUN 11 11 Creatinine 2.34 H D 1.40 H D 1.78 H D Glucose 135 H 210 H Calcium 7.7 L 6.8 L Phosphorus Magnesium 1.4 L 2.8 H 07/19/19 06:05 Sodium Potassium Chloride Carbon Dioxide BUN Creatinine Glucose Calcium Phosphorus 3.3 Magnesium Nutrition Assessment:: Please refer to the Notes section of the EMR for the most recent distribution coordinator note. - Assessment 83yo critically ill patient initiated on TPN for prolonged NPO, s/p bowel resection. - Plan For day 1 of PN administration, the following will be ordered: Macronutrients Amino acids 65 grams/day Dextrose 100 grams/day Lipids 25 grams/day Micronutrients Sodium phosphate 21 MMol Potassium acetate 30 mEq Calcium gluconate 4.65 mEq Multivitamins 10 mL Trace Elements 10 mL Additional additives: * Regular insulin 10 units * Famotidine 40mg (placed IVP order on hold) Total volume 966.16 mL to be infused over 24 hrs will provide 850 kcal/day * Max volume = 2 liters per hospitalist. Final osmolarity 1262 mOsm/L (maximum for PPN is 900 mOsm/L) Labs to be ordered per PN order protocol Pharmacy will follow and adjust parenteral nutrition orders on a daily basis. Thank you.
[2019-07-19] MEDS: ALBUT/IPRATROP 3MG/0.5MG NEB 3 ML VIAL NEB SCH ×4 (11:10→22:38)
--- NOTE | 2019-07-19 11:35 | Billing Data ---
Date of Service July 18, 2019 Coding Level of Care Code 29770 Inpt Consult Level 5
--- NOTE | 2019-07-19 11:35 | Billing Data ---
Date of Service July 19, 2019 Coding Level of Care Code Critical Care 1st - mins
[2019-07-19] MEDS ORDERED: CENTRAL PN IV SCH (16:00)
[2019-07-19] MEDS ORDERED: DEXTROSE 10% 1,000 ML IV PRN (16:00)
[2019-07-19] MEDS ORDERED: DEXTROSE 10% 1,000 ML IV SCH (16:00)
[2019-07-19] MEDS ORDERED: TPN IV SCH (16:00)
[2019-07-19] MEDS ORDERED: LABETALOL HCL IV 5 MG/ML 20ML IV STA (19:25)
[2019-07-19] MEDS: LATANOPROST 0.005% OP SOLN 2.5 ML BTL OP SCH (19:54)
[2019-07-20] MEDS ORDERED: METOPROLOL TARTRATE 1 MG/ML VIAL IV STA ×3 (00:38→20:54)
[2019-07-20] MEDS: MoRPHine SULFATE 4 MG/ML 1 ML CARP\\VIAL IV PRN ×3 (00:39→12:55)
[2019-07-20] MEDS: INSULIN ASPART 100 UNITS/ML 3 ML PEN SC SCH ×6 (00:52→20:22)
--- NOTE | 2019-07-20 01:15 | Critical Care Progress Note ---
Date of Service July 20, 2019 Assessment & Plan (1) Post-operative state: (2) Infiltrate of right lung present on chest x-ray: (3) SOLITARIO (acute kidney injury): (4) Mucoid impaction of bronchi: (5) Acute postoperative respiratory insufficiency: (6) Acute respiratory failure with hypoxia: (7) Sinus tachycardia: (8) Hypertension: (9) Colon stricture: Reason Critically Ill: Ms Contreras is an 83 year old woman here for recovery after bowel resection and reanastomosis on 07/18/18 Neuro: Awake alert and oriented Cam ICU negative Respiratory: Patient breathing comfortably on 4 L currently Lungs clear to auscultation Chest XR continuing to show atelectasis of right upper lobe Ordered breathing treatments and respiratory therapy consult Encouraged patient to increase effort with incentive spirometry and get up to chair and moving Cardiovascular: HTN and sinus tachycardia On atenolol 100 mg daily currently but held post surgery for some hypotension and NPO status Will add IV metoprolol boluses 5mg q4h with parameters to replace beta blockade Gastrointestinal: Bowel rest for anastomosis NG tube in place on low intermittent suction NPO BELA drain with serosagnuinous fluid Lesion does appear to be cancerous per initial read of pathology May be metastatic breast cancer, but will await final pathology results Renal: Patient with creatinine in the mid ones at baseline 1.35 pre op, up to 2.34 post op and down to 1.78 1/5 bilateral hydronephrosis and possibly cancerous lesion of bladder visualized urology consulted planning on outpatient follow up for cystoscopy and follow up of bladder lesion on July [address] scan showing improved hydronephrosis Will continue to monitor urine output, .35 ml/kg/hour today ID: Consolidation on RUL of CXR new since surgery patient with no symptoms or lab findings suspicious atelectasis/mucus plug but also concern of pneumonia; normal lung exam despite some weak coughing Poor effort on incentive spirometry Respiratory consulted, started duonebs scheduled Will hold off on antibiotics for now Repeat CXR shows same obstruction will give bronchodilators and have respiratory therapy work with her. Repeat CXR for am Endocrine: DMII Pharmacy glycemic consult Rheum: patient with temporal arteritis on actemra every other week Heme: H and H stable, went up after transfusion, went down slightly after normosol resuscitation from dilution, does not appear to be active bleeding Patient will remain in ICU for close observation after bowel mass resection (10) Rib lesion: (11) DVT prophylaxis: (12) CKD (chronic kidney disease), stage III: (13) Bilateral hydronephrosis: (14) Lesion of colon: (15) Dyslipidemia: (16) DM type 2 (diabetes mellitus, type 2): (17) Small bowel obstruction: (18) Lesion of bladder: (19) HX: breast cancer: (20) Temporal arteritis: Supervising Physician Co-Signing Physician Notes Dr. Anthony was resident physician during care of patient. I separately evaluated patient for engel portions of the history and the exam. I was present d uring the critical portion of medical decision making, and I discussed the case with the resident. I generally agree with the findings and plan. Patient denies chest pain or shortness of breath. It was noted she was on a rather large dose of atenolol, the patient was significantly tachycardic that responded to 2 additional doses of metoprolol and we now have the patient on scheduled metoprolol. She admits to some abdominal pain, has not moved her bowels yet nor experiencing flatus. NG output is bilious. We will attempt to clamp the NG tube today. Subjective Kristina Contreras is complaining of bilateral rib pain tonight, she does not have any tenderness to the area but feels it at rest towards her back. She was in a sinus tachycardia and was given morphine and 5 of metoprolol. She is currently endorsing some pain but much improved does not feel like she needs any further pain management. She tells me she is breathing comfortably, no chest pain, no fevers, chills, rigors, or other concerning symptoms. Review of Systems Review of Systems: All systems reviewed & are unremarkable except as noted in HPI & below Physical Exam Physical Exam: Constitutional: Frail appearing 83 year old woman, lying in bed in mild distress Eyes: Anicteric sclerae, PERRLA, EOMMI bilaterally Respiratory: Lungs clear to auscultation, no increased work of breathing Cardiovascular: Heart sounds dual, regular rate regular rhythm, peripheral pulses intact GI: Bandage in place across midline of abdomen, BELA drain draining serosanguinous fluid Skin: Bruising on left side of abdomen, according to surgeon was present before procedure. Results & Data Vital Signs (Past 12 Hours) Vital Signs Temp Pulse Pulse Resp BP Pulse Ox 07/20/19 00:46 113 H 191/49 H 07/19/19 23:19 101 H 21 146/80 H 96 07/19/19 23:00 99 H 13 94 07/19/19 22:40 97 H 14 96 07/19/19 22:30 96 H 21 95 07/19/19 22:19 94 H 19 159/86 H 96 07/19/19 21:30 105 H 23 96 07/19/19 21:23 102 H 07/19/19 21:19 96 H 16 146/87 H 95 07/19/19 21:00 97 H 20 95 07/19/19 20:30 96 H 22 96 07/19/19 20:19 96 H 20 133/97 96 07/19/19 20:09 87 22 91 07/19/19 20:00 92 H 17 98 07/19/19 19:30 100 H 20 98 07/19/19 19:19 99 H 20 166/89 H 98 07/19/19 19:00 36.8 C 102 H 15 89 L 07/19/19 18:00 104 H 26 H 91 07/19/19 17:19 105 H 22 167/86 H 96 07/19/19 17:00 107 H 21 94 07/19/19 16:19 36.7 C 102 H 23 160/89 H 99 07/19/19 16:00 103 H 21 92 07/19/19 15:19 98 H 15 143/77 H 98 07/19/19 15:00 93 H 87 34 H 98 07/19/19 14:19 93 H 24 142/84 H 96 07/19/19 14:00 92 H 14 96 07/19/19 13:47 94 H 19 166/85 H 95 07/19/19 13:19 97 H 25 H 165/107 H 90 Critical Care Time Critical Care Time: Yes Total Critical Care Time: 35 I have personally spent 35 minutes of critical care time in the direct management of this patient. This is a life/limb threatening event. This includes time spent evaluating patient, direct bedside care, chart review, placing orders, interpretation of diagnostic studies, discussion with consultants, patient, and/or family members regarding treatment decisions, as well as other required patient management activities. This time is exclusive of all separately billable procedures, and teaching time and separate from and in addition to any other critical care service time. Resident Activity Tracking Resident Involvement: Resident Care Provided Care Provided: [facility]
[2019-07-20] MEDS: ALBUT/IPRATROP 3MG/0.5MG NEB 3 ML VIAL NEB SCH ×4 (02:40→15:15)
[2019-07-20] MEDS: METOPROLOL TARTRATE 1 MG/ML VIAL IV SCH ×6 (03:32→22:39)
[2019-07-20] MEDS ORDERED: PHARMACY GLYCEMIC MGMT CONSULT PRN (03:43)
[2019-07-20] MEDS ORDERED: INSULIN GLARGINE SOLOSTAR 100 UNITS/ML 3 ML PEN SC ONE (03:45)
[2019-07-20] MEDS ORDERED: METOPROLOL TARTRATE 1 MG/ML VIAL IV SCH (04:00)
[2019-07-20 04:45] LABS: BUN Creatinine Ratio 12.8 (10-20); Calcium 7.1 mg/dl (8.5-10.1); Creatinine Clr Calc Pharmacy 27.1 ml/min; Est GFR (African American) 41.6; Est GFR (Non-African American) 35.9; Hematocrit (blood only) 23.6 % (37-47); Magnesium 2.4 mg/dl (1.8-2.4); Mean Corpuscular Hemoglobin 31.6 pg (25-34); Mean Corpuscular Hgb Conc 33.9 g/dL (32-36); Mean Corpuscular Volume 93.3 fL (80-100); Mean Platelet Volume 9.6 fL (7.4-10.4); Nucleated RBC # (auto) 0.05 K/uL (0-0); Nucleated RBC % (auto) 0.3 %; Platelet Count 129 K/uL (130-400); Potassium 3.7 mmol/L (3.5-5.1); RDW Coefficient of Variation 14.9 % (11.5-14.5); RDW Standard Deviation 50.6 fL (36.4-46.3); Red Blood Count 2.53 M/uL (4.2-5.4)
[2019-07-20] MEDS ORDERED: POTASSIUM CHLORIDE / WTR 10 MEQ/100 ML PLCT IV ONE (05:02)
[2019-07-20 05:23] LABS: Basophils # (auto) 0.02 K/uL (0-0.2); Basophils % (auto) 0.1 %; Eosinophils # (auto) 0.53 K/uL (0-0.5); Eosinophils % (auto) 3.6 %; Immature Granulocytes # (auto) 0.15 K/uL (0.00-0.02); Lymphocytes # (auto) 0.57 K/uL (1.2-3.4); Lymphocytes % (auto) 3.9 %; Monocytes # (auto) 1.15 K/uL (0.11-0.59); Monocytes % (auto) 7.8 %; Neutrophils # (auto) 12.28 K/uL (1.4-6.5); Neutrophils % (auto) 83.6 %
[2019-07-20] MEDS: METOPROLOL TARTRATE 1 MG/ML VIAL IV PRN ×3 (07:25→15:04)
[2019-07-20] MEDS: ESCITALOPRAM OXALATE 10 MG TAB PO SCH (07:29)
[2019-07-20] MEDS: NYSTATIN SUSP 500,000 U/5 ML UDC PO SCH ×4 (07:29→21:05)
[2019-07-20] MEDS: ATENOLOL 50 MG TABLET PO SCH ×2 (07:29→21:06)
--- NOTE | 2019-07-20 08:18 | Pharmacy Report ---
PHA: Parenteral Nutrition Con - Date of Service July 20, 2019 - Scope Pharmacy was consulted on 07/19/19 to manage parenteral nutrition orders for this patient. - Subjective The patient is currently on day # 2 of central parenteral nutrition for Prolonged NPO, s/p bowel resection. - Objective Height: 5 ft 4 in Weight: 66.4 kg Diet: NPO Vascular Access:: CENTRAL Intake & Output (24hrs):: Intake & Output 07/18/19 07/19/19 07/20/19 07/21/19 06:59 06:59 06:59 06:59 Intake Total 1050.000 / 1513.233 8406.742 / 5488.742 2162.5 / 2162.5 Output Total 1720 / 1720 1415 / 1415 185 / 185 Balance 1047.000 / 5144.261 1241.742 / 3768.742 747.5 / 747.5 -185 / -185 Weight 60.4 kg 60.4 kg 64.6 kg 66.4 kg Laboratory Data (Last 24 Hr):: 07/20/19 04:15 Sodium 138 Potassium 3.7 Chloride 110 H Carbon Dioxide 24 BUN 17 D Creatinine 1.36 H D Glucose 228 H Calcium 7.1 L Phosphorus 3.0 Magnesium 2.4 Triglycerides 195 H Nutrition Assessment:: Please refer to the Notes section of the EMR for the most recent brigadier note. - Assessment * Titrating Macros to goal * Will not increase Dextrose today secondary to uncontrolled BSGs * Will not increase Lipids today secondary to elevated TG * Ok to advance AA * BSGs uncontrolled * Now glycemic consult * Basal insulin ordered * Novolog parameters tightened and frequency increased to Q4hrs * Will also increase insulin in TPN * Continue to titrate micronutrients per labs - Plan For day # 2 of PN administration, the following will be ordered: Macronutrients Amino acids 85 grams/day Dextrose 100 grams/day Lipids 25 grams/day Micronutrients Sodium phosphate 21 MMol Potassium phosphate 10 mMol Potassium acetate 30 mEq Calcium gluconate 4.65 mEq Multivitamins 10 mL Trace Elements 1 mL Additional additives: * Regular insulin 10 units * Famotidine 40mg (placed IVP order on hold) * Thiamine 100mg * Folic Acid 1mg Total volume 966.16 mL to be infused over 24 hrs will provide 850 kcal/day * Max volume = 2 liters per hospitalist. Final osmolarity 1212 mOsm/L (maximum for PPN is 900 mOsm/L) Labs, as indicated, will be ordered per protocol Pharmacy will continue to follow and adjust parenteral nutrition orders on a daily basis. Thank you for allowing us to participate in the care of this patient.
--- NOTE | 2019-07-20 09:38 | Surgery Progress Note ---
Date of Service F/U S/P colon resection, POD 2 pt is stable, no significant abdominal pain, pt denies chest pain, no dizziness, H/H 03/07.6, not pass gas yet, July 20, 2019 Assessment & Plan (1) Post-operative state: S/P colon resection, POD 2 stable, H/H 8/23.6 continue treatment, repeat labs in am Supervising Physician Co-Signing Physician Notes Dr. Anthony was resident physician during care of patient. I separately evaluated patient for engel portions of the history and the exam. I was present during the critical portion of medical decision making, and I discussed the case with the resident. I generally agree with the findings and plan. Patient currently on 3 L nasal cannula, I would consider this acute postoperative respiratory insufficiency secondary to mucoid impaction of the right upper lobe. I believe this is mildly improved as the 2 x-rays from yesterday and today show an increase in the ribs I believe she is able to take deeper breaths. She is continuing to use her incentive spirometer, we will apply a little bit of chest physiotherapy to the right upper lobe, if this does not improve in the next 12 to 24 hours I would consider bronchoscopy for removal of mucoid impaction. Certainly a postobstructive process is in the differential however I think this is rather unlikely at this point. Her acute kidney injury is improving I have reviewed the urology notes. Patient will likely benefit from a discussion regarding goals of care once formal pathology results are back. At baseline she is DNR/DNI in event of cardiac arrest. Continue close observation at this point. Patient critically ill due to acute kidney injury on chronic kidney disease and acute hypoxic respiratory failure secondary to acute postoperative respiratory insufficiency secondary to mucoid impaction of the right upper lobe. Subjective Kristina Contreras is complaining of bilateral rib pain tonight, she does not have any tenderness to the area but feels it at rest towards her back. She was in a sinus tachycardia and was given morphine and 5 of metoprolol. She is currently endorsing some pain but much improved does not feel like she needs any further pain management. She tells me she is breathing comfortably, no chest pain, no fevers, chills, rigors, or other concerning symptoms. Physical Exam Constitutional: WD/WN, vitals as above well developed and well nourished Neck: trachea midline, no thyromegaly Respiratory: normal respiratory effort, lungs clear to auscultation normal respiratory effort Cardiovascular: RRR, no murmur, no edema Rate/Rhythm: regular rate and regular rhythm Gastrointestinal (Abdomen): Percussion/Palpation: abdomen soft mild tenderness, no rebound pain, dressing intact, Neurologic: awake Psychiatric: Orientation: alert and oriented x 3 Results & Data Vital Signs (Past 12 Hours) Vital Signs Temp Pulse Pulse Resp BP Pulse Ox 07/20/19 08:30 99 H 17 96 07/20/19 08:21 99 H 16 96 07/20/19 08:19 100 H 14 139/87 97 07/20/19 08:10 99 H 17 96 07/20/19 08:00 36.9 C 97 H 14 96 07/20/19 07:51 96 H 14 169/94 H 96 07/20/19 07:50 95 H 16 97 07/20/19 07:40 126 H 17 95 07/20/19 07:34 114 H 16 127/94 95 07/20/19 07:33 126 H 152/55 H 07/20/19 07:30 124 H 13 95 07/20/19 07:25 136 H 166/95 H 07/20/19 07:21 126 H 15 95 07/20/19 07:19 127 H 21 166/95 H 95 07/20/19 07:10 128 H 22 94 07/20/19 07:00 131 H 10 L 95 07/20/19 06:50 135 H 17 95 07/20/19 06:40 133 H 18 85 L 07/20/19 06:30 118 H 18 95 07/20/19 06:26 127 H 157/108 H 07/20/19 06:21 129 H 20 95 07/20/19 06:19 127 H 15 157/108 H 95 07/20/19 06:10 124 H 20 95 07/20/19 06:00 36.7 C 122 H 26 H 95 07/20/19 05:50 125 H 15 94 07/20/19 05:40 123 H 15 93 07/20/19 05:30 126 H 16 94 07/20/19 05:19 123 H 19 153/97 H 93 07/20/19 05:00 120 H 19 94 07/20/19 04:30 125 H 14 93 07/20/19 04:19 133 H 16 156/88 H 94 07/20/19 04:00 111 H 18 94 07/20/19 03:32 136 H 164/47 H 07/20/19 03:30 137 H 16 94 07/20/19 03:20 137 H 18 142/87 H 93 07/20/19 03:00 131 H 18 93 07/20/19 02:30 132 H 16 94 07/20/19 02:19 136 H 13 116/88 93 07/20/19 02:00 126 H 22 92 07/20/19 01:30 109 H 18 92 07/20/19 01:19 108 H 18 146/90 H 93 07/20/19 01:10 107 H 26 H 93 07/20/19 01:00 108 H 15 93 07/20/19 00:50 116 H 20 91 07/20/19 00:46 113 H 191/49 H 07/20/19 00:30 120 H 18 95 07/20/19 00:21 110 H 19 94 07/20/19 00:19 36.7 C 112 H 13 167/64 H 94 07/19/19 23:40 100 H 17 94 07/19/19 23:19 101 H 21 146/80 H 96 07/19/19 23:00 99 H 13 94 07/19/19 22:40 97 H 14 96 07/19/19 22:30 96 H 21 95 07/19/19 22:19 94 H 19 159/86 H 96 Laboratory Results Abnormal lab results 07/19/19 07/19/19 07/20/19 Range/Units 11:28 17:37 00:34 WBC (4.8-10.8) K/uL RBC (4.2-5.4) M/uL Hgb (12.0-16.0) g/dL Hct (37-47) % RDW Std Deviation (36.4-46.3) fL RDW Coeff of Jennifer (11.5-14.5) % Plt Count (130-400) K/uL Immature Gran # (Auto) (0.00-0.02) K/uL Neut # (Auto) (1.4-6.5) K/uL Lymph # (Auto) (1.2-3.4) K/uL [place] # (Auto) (0.11-0.59) K/uL Eos # (Auto) (0-0.5) K/uL Absolute Nucleated RBC (0-0) K/uL Chloride (98-107) mmol/L Creatinine (0.6-1.2) mg/dl Glucose (70-99) mg/dl POC Glucose 189 H 238 H 284 H (70-99) Calcium (8.5-10.1) mg/dl Triglycerides (0-150) mg/dl 07/20/19 07/20/19 07/20/19 Range/Units 02:45 04:15 04:15 WBC 14.70 H (4.8-10.8) K/uL RBC 2.53 L (4.2-5.4) M/uL Hgb 8.0 L (12.0-16.0) g/dL Hct 23.6 L (37-47) % RDW Std Deviation 50.6 H (36.4-46.3) fL RDW Coeff of Jennifer 14.9 H (11.5-14.5) % Plt Count 129 L (130-400) K/uL Immature Gran # (Auto) 0.15 H (0.00-0.02) K/uL Neut # (Auto) 12.28 H (1.4-6.5) K/uL Lymph # (Auto) 0.57 L (1.2-3.4) K/uL [place] # (Auto) 1.15 H (0.11-0.59) K/uL Eos # (Auto) 0.53 H (0-0.5) K/uL Absolute Nucleated RBC 0.05 H (0-0) K/uL Chloride 110 H (98-107) mmol/L Creatinine 1.36 H D (0.6-1.2) mg/dl Glucose 228 H (70-99) mg/dl POC Glucose 238 H (70-99) Calcium 7.1 L (8.5-10.1) mg/dl Triglycerides 195 H (0-150) mg/dl 07/20/19 Range/Units 07:33 WBC (4.8-10.8) K/uL RBC (4.2-5.4) M/uL Hgb (12.0-16.0) g/dL Hct (37-47) % RDW Std Deviation (36.4-46.3) fL RDW Coeff of Jennifer (11.5-14.5) % Plt Count (130-400) K/uL Immature Gran # (Auto) (0.00-0.02) K/uL Neut # (Auto) (1.4-6.5) K/uL Lymph # (Auto) (1.2-3.4) K/uL [place] # (Auto) (0.11-0.59) K/uL Eos # (Auto) (0-0.5) K/uL Absolute Nucleated RBC (0-0) K/uL Chloride (98-107) mmol/L Creatinine (0.6-1.2) mg/dl Glucose (70-99) mg/dl POC Glucose 206 H (70-99) Calcium (8.5-10.1) mg/dl Triglycerides (0-150) mg/dl
--- NOTE | 2019-07-20 09:51 | Pharmacy Report ---
Glycemic Control Consultation - Date of Service July 20, 2019 - Scope Scope: Glycemic Pharmacist consulted for glycemic control and to write orders per [facility] inpatient glycemic control protocol - Objective Weight: 66.4 kg Accuchecks BSG (last 24hrs): 07/19/19 07/19/19 07/20/19 11:28 17:37 00:34 Glucose POC Glucose 189 H 238 H 284 H 07/20/19 07/20/19 07/20/19 02:45 04:15 07:33 Glucose 228 H POC Glucose 238 H 206 H Laboratory Data (last 24hrs): 07/20/19 04:15 Potassium 3.7 Carbon Dioxide 24 Anion Gap 4.0 Creatinine 1.36 H D Est Cr Clr Drug Dosing 27.1 HbA1c: Unknown - would likely be unreliable if drawn at this time secondary to Hgb drop 12 --> 8 and subsequent transfusion - Recent Pertinent Medications Outpatient Anti-diabetic Regimen: * Tradjenta 5mg PO QAM The patient is currently receiving: * Basal insulin: N/A - none * Correctional Insulin: Novolog Correction per scale ACHS Goal Range: Low 100 mg/dL - High 140 mg/dL Correction Factor: 40 mg/dL/unit * Prandial insulin: Per carb ratio of 1 unit per 13 grams CHO consumed * Oral Agents: On hold for admission Risk Factors for Insulin Resistance: * TPN * Recent Surgery - Assessment & Plan Assessment & Plan: ASSESSMENT: * 83yo T2DM female with unknown degree of outpatient control * 07/12/19 - 07/17/19: BSGs well controlled per glycemic targets with bolus insulin monotherapy * 07/18/19: POD #0 bowel resection. Pt with severe hyperglycemia in PACU * 07/19/19: POD #1 BSGs > 200 mg/dl. TPN initiated with 10 units of regular insulin. Pt continued on bolus insulin correctional scale monotherapy. * 07/20/19: Overnight, Pharmacy consulted for glycemic control. Basal insulin initiated, CF tightened, NovoLog frequency increased from Q6hrs to Q4hrs. * Goal is to maintain BSGs in 140-180 mg/dl range for TPN/critically ill patient. PLAN FOR INPATIENT GLYCEMIC CONTROL: * Holding outpatient oral diabetes medications * Basal insulin * Lantus 15 units (0.23 units/kg) SQ x 1 dose given @ ~ 0400 this morning * Will give additional dose at lunch if BSG > 180 * Bolus insulin * NovoLog per scale ACHS or Q6hrs while NPO * Goal Range: Low 110 mg/dL - High 140 mg/dL * Correction Factor: 25 mg/dL/unit * Nutritional / Prandial insulin per carb ratio of 1 unit per -- grams CHO consumed (contained in TPN) * Regular insulin added to TPN bag at 0.2 units/gram dextrose (20 units for 100g dextrose or equates to a CR of 5) * Please note that the plan above was derived based on current level of insulin resistance and hospital stress. These recommendations are appropriate for inpatient admission only. Plan of care upon discharge will need to be reassessed to avoid potential outpatient hypo/hyperglycemia. Thank you.
--- NOTE | 2019-07-20 11:55 | Billing Data ---
Date of Service July 20, 2019 Coding Level of Care Code Critical Care 1st - mins
--- NOTE | 2019-07-20 13:07 | Electrocardiogram Report ---
Test Reason : Blood Pressure : / mmHG Vent. Rate : 115 BPM Atrial Rate : 115 BPM P-R Int : 178 ms QRS Dur : 082 ms QT Int : 336 ms P-R-T Axes : 054 -03 083 degrees QTc Int : 464 ms Poor data quality, interpretation may be adversely affected Sinus tachycardia with occasional Premature ventricular complexes Nonspecific T wave abnormality Abnormal ECG When compared with ECG of 12-JUL-2019 08:26, Premature ventricular complexes are now Present Vent. rate has increased BY 41 BPM Confirmed by Juvenal Reid [id number]) on 07/20/2019 1:06:44 PM Referred By: REFERRED SELF Confirmed By:Juvenal Reid
[2019-07-20] MEDS: LEVALBUTEROL HCL 0.63 MG/3 ML NEB NEB SCH ×3 (15:15→22:29)
[2019-07-20] MEDS ORDERED: CENTRAL PN IV SCH (16:00)
[2019-07-20] MEDS ORDERED: TPN IV SCH (16:00)
--- NOTE | 2019-07-20 18:41 | Hospitalist Progress Note ---
Date of Service July 20, 2019 Assessment & Plan (1) Small bowel obstruction: (1) Small bowel obstruction: Status post colonoscopy, showing stricture of the colonic splenic flexure, biopsy performed, pathology pending s/p Colon resection 07/19/2019 Postoperatively: Anemia likely secondary to acute blood loss Transfused 1 unit of packed RBCs for hemoglobin 7.7, hemoglobin now stable at around 8 right upper lobe opacity on CXR saturating well on 2 L NC, not in distress, clear breath sounds BL possible atelectasis? mucus plug? Continue incentive spirometry, flight controls engineer following Xopenex every 4 hours will continue to monitor continue close monitoring in the ICU Sinus tachycardia Usually on atenolol p.o., converted to metoprolol IV Monitor closely Nutrition Remains n.p.o. TPN started (2) Lesion of bladder: Dr. Banks's notes: Appreciate urology input and recommendation To have outpatient follow-up and probable cystoscopy as an outpatient Appointment with Dr. Olivia as an outpatient on 29 July for further evaluation of hydronephrosis and suspected bladder lesion (3) Lesion of colon: Management per #1 (4) Rib lesion: Could have secondary to metastatic lesion with history of CA breast in the past and suspicion for colon and/or urinary bladder -Remote history of breast cancer, previously followed with Dr. Fong (5) Bilateral hydronephrosis: -CT notes 1 cm bladder lesion and possible transverse colon and rib lesions, bilateral hydronephrosis; possible carcinomatosis as etiology for SBO Urologist consulted -Regarding bilateral hydronephrosis, creatinine is noted to be baseline at 1.4 Outpatient follow-up recommended (6) acute renal failure on CKD (chronic kidney disease), stage III: - baseline creat runs in the mid ones -Noted postoperatively Creatinine from 1.05, increased to 2, now down to 1.3 -From relative hypotension perioperatively? Continue to monitor (7) DM type 2 (diabetes mellitus, type 2): -Hgb A1c 6.9 05/2019 -Hold oral agents and utilize NovoLog per protocol while hospitalized (8) HTN (hypertension): Usually on amlodipine 10 atenolol Metoprolol 5 mg every 4 hours IV ordered (9) Temporal arteritis: -Receives Actemra injections every 14 days - Actemra May need to be placed on hold after surgery (10) Dyslipidemia: -Continue statin (11) DVT prophylaxis: Still having serosanguineous drainage per BELA drain -SCDs Disposition Lives with family at home will order PT and OT evaluations Subjective Follow-up for small bowel obstruction, status post colon resection Seen resting in bed, comfortable, not in distress Nasogastric tube in place On 3 L of oxygen via nasal cannula States she feels improved today compared to yesterday No shortness of breath, chest pain, palpitations, dizziness Pain over surgical site well controlled, no nausea Denies other symptoms Review of Systems Review of Systems: All systems reviewed & are unremarkable except as noted in HPI & below Physical Exam Physical Exam: General- oriented x 3, not in distress, speaks in sentences with no effort or accessory muscle use Eyes- anicteric ENT-NG tube in place Neck- no JVD Lungs- clear breath sounds no wheezing, no crackles bilateral Heart- normal rate, regular rhythm; no murmurs Abdomen- normal bowel sounds, nondistended, soft, surgical dressing in place: No bleeding or discharge, BELA drain in place, with serosanguineous output, nontender Extremities- no pretibial edema, no calf tenderness Neuro- alert, oriented x 3; no gross focal neurologic deficits Skin- warm & dry Results & Data Vital Signs (Past 12 Hours) Vital Signs Temp Pulse Pulse Resp BP Pulse Ox 07/20/19 16:00 36.9 C 123 H 23 96 07/20/19 15:30 121 H 21 97 07/20/19 15:19 123 H 15 136/93 99 07/20/19 15:04 128 H 158/92 H 07/20/19 15:02 128 H 23 158/92 H 96 07/20/19 15:00 128 H 19 97 07/20/19 14:30 124 H 12 96 07/20/19 14:07 126 H 178/65 H 07/20/19 14:00 121 H 27 H 95 07/20/19 13:30 88 22 95 07/20/19 13:19 101 H 16 178/65 H 95 07/20/19 13:00 115 H 23 98 07/20/19 12:30 114 H 18 94 07/20/19 12:19 103 H 24 159/94 H 97 07/20/19 12:00 101 H 19 98 07/20/19 11:47 102 H 17 170/86 H 99 07/20/19 11:30 97 H 15 100 07/20/19 11:27 95 H 18 97 07/20/19 11:19 99 H 17 188/112 H 97 07/20/19 11:00 95 H 14 98 07/20/19 10:47 102 H 177/104 H 07/20/19 10:43 104 H 14 177/104 H 100 07/20/19 10:30 99 H 13 99 07/20/19 10:00 98 H 15 97 07/20/19 09:30 101 H 15 93 07/20/19 09:19 99 H 17 153/86 H 98 07/20/19 09:00 98 H 22 97 07/20/19 08:30 99 H 17 96 07/20/19 08:21 99 H 16 96 07/20/19 08:19 100 H 14 139/87 97 07/20/19 08:10 99 H 17 96 07/20/19 08:00 36.9 C 97 H 14 96 07/20/19 07:51 96 H 14 169/94 H 96 07/20/19 07:50 95 H 16 97 07/20/19 07:40 126 H 17 95 07/20/19 07:34 114 H 16 127/94 95 07/20/19 07:33 126 H 152/55 H 07/20/19 07:30 124 H 13 95 07/20/19 07:25 136 H 166/95 H 07/20/19 07:21 126 H 15 95 07/20/19 07:19 127 H 21 166/95 H 95 07/20/19 07:10 128 H 22 94 07/20/19 07:00 131 H 10 L 95 07/20/19 06:50 135 H 17 95 07/20/19 06:40 133 H 18 85 L
[2019-07-20] MEDS: INSULIN GLARGINE SOLOSTAR 100 UNITS/ML 3 ML PEN SC SCH (20:24)
[2019-07-20] MEDS: LATANOPROST 0.005% OP SOLN 2.5 ML BTL OP SCH (21:05)
[2019-07-21] MEDS: INSULIN ASPART 100 UNITS/ML 3 ML PEN SC SCH ×6 (00:26→20:27)
[2019-07-21] MEDS: MoRPHine SULFATE 4 MG/ML 1 ML CARP\\VIAL IV PRN ×5 (01:47→20:30)
[2019-07-21] MEDS: METOPROLOL TARTRATE 1 MG/ML VIAL IV SCH ×2 (02:03→07:26)
[2019-07-21] MEDS: LEVALBUTEROL HCL 0.63 MG/3 ML NEB NEB SCH (02:19)
[2019-07-21 04:15] LABS: Basophils # (auto) 0.02 K/uL (0-0.2); Basophils % (auto) 0.1 %; Eosinophils # (auto) 0.71 K/uL (0-0.5); Eosinophils % (auto) 4.3 %; Hematocrit (blood only) 24.3 % (37-47); Hemoglobin 8.2 g/dL (12.0-16.0); Immature Granulocytes # (auto) 0.12 K/uL (0.00-0.02); Immature Granulocytes % (auto) 0.7 %; Lymphocytes # (auto) 0.75 K/uL (1.2-3.4); Lymphocytes % (auto) 4.5 %; Mean Corpuscular Hemoglobin 31.9 pg (25-34); Mean Corpuscular Hgb Conc 33.7 g/dL (32-36); Mean Corpuscular Volume 94.6 fL (80-100); Mean Platelet Volume 9.4 fL (7.4-10.4); Monocytes # (auto) 1.82 K/uL (0.11-0.59); Neutrophils # (auto) 13.07 K/uL (1.4-6.5); Neutrophils % (auto) 79.4 %; Nucleated RBC # (auto) 0.08 K/uL (0-0); Nucleated RBC % (auto) 0.5 %; Platelet Count 127 K/uL (130-400); RDW Coefficient of Variation 15.1 % (11.5-14.5); Red Blood Count 2.57 M/uL (4.2-5.4); White Blood Count 16.49 K/uL (4.8-10.8)
[2019-07-21] MEDS ORDERED: METOPROLOL TARTRATE 1 MG/ML VIAL IV STA (04:24)
[2019-07-21 04:35] LABS: BUN Creatinine Ratio 24.6 (10-20); Calcium 8.1 mg/dl (8.5-10.1); Creatinine Clr Calc Pharmacy 41.2 ml/min; Est GFR (African American) 62.6; Phosphorus 2.4 mg/dl (2.5-4.9); Potassium 3.7 mmol/L (3.5-5.1)
--- NOTE | 2019-07-21 07:12 | XRay Report ---
XR chest 1V portable CLINICAL HISTORY: mucous plug/ atelectasis eval COMPARISON STUDY: 07/19/2019 FINDINGS: The heart is normal in size. There is a nasogastric tube is in stomach. There is a right in ternal jugular central venous catheter. The tip projects over the atriocaval junction. There is progr essive right upper lobe volume loss. A centrally obstructing lesion cannot be excluded.[ IMPRESSION: Right upper lobe collapse. ACT 112: Negative or not required by law. Electronically signed by: Shun Blanchard M.D. 07/21/2019 7:11 AM
[2019-07-21] MEDS: NYSTATIN SUSP 500,000 U/5 ML UDC PO SCH ×4 (07:32→20:26)
[2019-07-21] MEDS: ESCITALOPRAM OXALATE 10 MG TAB PO SCH (07:32)
[2019-07-21] MEDS: ATENOLOL 50 MG TABLET PO SCH (07:32)
--- NOTE | 2019-07-21 07:46 | Surgery Progress Note ---
Date of Service July 21, 2019 Assessment & Plan (1) Colon stricture: POD 3 resection transverse colon/splenic flexure seen with Dr. Andino d/c NG, start clears jerry drain removed will check amylase on Wayne drainage gently diurese, 10 mg lasix H&H stable Subjective some flatus, OOB to chair yesterday Physical Exam Gastrointestinal (Abdomen): Inspection/Auscultation: + abdomen distended (minimal), + abdominal surgical incision (clean, dry, minimal jerry drainage) and + abdominal surgical drain present (220 cc ) Percussion/Palpation: abdomen soft Results & Data Vital Signs (Past 12 Hours) Vital Signs Temp Pulse Pulse Resp BP Pulse Ox 07/21/19 06:19 122 H 18 106/68 91 07/21/19 06:00 128 H 30 H 97 07/21/19 05:47 118 H 21 120/71 96 07/21/19 05:20 120 H 21 97/68 L 94 07/21/19 05:00 130 H 15 97 07/21/19 04:30 130 H 121/77 07/21/19 04:19 125 H 23 121/77 95 07/21/19 04:00 36.8 C 124 H 25 H 94 07/21/19 03:19 126 H 16 131/75 96 07/21/19 03:00 120 H 21 95 07/21/19 02:31 128 H 21 138/71 95 07/21/19 02:27 126 H 26 H 160/127 H 98 07/21/19 02:21 116 H 18 95 07/21/19 02:03 150 H 180/93 H 07/21/19 02:00 133 H 18 95 07/21/19 01:20 90 28 H 180/93 H 96 07/21/19 01:00 102 H 36 H 96 07/21/19 00:19 102 H 21 176/93 H 96 07/21/19 00:00 37.3 C 102 H 22 95 07/20/19 23:20 127 H 21 161/85 H 96 07/20/19 23:00 113 H 20 96 07/20/19 22:39 127 H 162/98 H 07/20/19 22:19 124 H 19 162/98 H 97 07/20/19 22:00 130 H 13 94 07/20/19 21:20 114 H 19 165/98 H 96 07/20/19 21:12 109 H 24 174/100 H 97 07/20/19 21:05 137 H 157/89 H 07/20/19 21:00 132 H 27 H 07/20/19 20:28 127 H 15 157/89 H 96 07/20/19 20:26 153 H 184/90 H 07/20/19 20:00 37.2 C 102 H 26 H 97 PG Care Time/CCT Total # of Minutes Spent Total Time Spent with Patient: Total time spent is greater than 50% in coordination of care (as documented) at patient's floor/unit and/or counseling patient:
[2019-07-21] MEDS: INSULIN GLARGINE SOLOSTAR 100 UNITS/ML 3 ML PEN SC SCH ×2 (07:47→20:28)
[2019-07-21] MEDS ORDERED: INSULIN GLARGINE SOLOSTAR 100 UNITS/ML 3 ML PEN SC SCH (08:00)
[2019-07-21] MEDS ORDERED: FUROSEMIDE 10 MG in SYRINGE 0 ML IV SCH (08:00)
[2019-07-21] MEDS: METOPROLOL TARTRATE 1 MG/ML VIAL IV PRN ×2 (09:04→09:24)
[2019-07-21] MEDS: METOPROLOL TARTRATE 25 MG TAB PO SCH ×2 (10:45→17:39)
--- NOTE | 2019-07-21 10:58 | Critical Care Progress Note ---
Date of Service July 21, 2019 Assessment & Plan (1) S/P admission to ICU (intensive care unit): Patient was discussed on multidisciplinary rounds. 83-year-old female with a past medical history of breast cancer who recently underwent a colon resection due to a stricture. Since that period time she was found to have a right upper lobe collapse and is also having episodes of atrial tachycardia and atrial fibrillation. Her NG tube was removed and she is able to tolerate small amounts of p.o. diet. She is passing flatus currently. She has not had any bowel movements as of yet. She is currently on TPN. She does have a right IJ line in place. Surgery is following. We will switch her from IV metoprolol and p.o. atenolol to just p.o. metoprolol 25 mg every 6 hours. We will consult cardiology as well. Regarding the right upper lobe collapse, I am going to withhold bronchoscopy at this time given her issues with her atrial tachycardia. She is on minimal oxygen at this time and is essentially bedbound, thus the urgency for bronchoscopy at this time is low. We will continue percussive chest therapy. There is also question about metastatic lesions to the peritoneum and bladder. Biopsy results from the colectomy are pending. I have personally spent 35 minutes of critical care time in the direct management of this patient. This is a life/limb threatening event. This includes time spent evaluating patient, direct bedside care, chart review, placing orders, interpretation of diagnostic studies, discussion with consultants, patient, and family members, as well as other required patient management activities. This time is exclusive of all separately billable procedures, and teaching time and separate from and in addition to any other critical care service time. Thank you for allowing us to participate in the care of this patient. (2) Infiltrate of right lung present on chest x-ray: (3) Atrial tachycardia: (4) Colon stricture: Subjective Patient having some mild abdominal pain today when eating. NG tube was removed. She has not had any bowel movements as of yet. She is passing gas. Heart rate has been anywhere from the 110-140 range. She denies any chest pain. Physical Exam Constitutional: Elderly-appearing female no apparent distress. Respiratory: normal respiratory effort, lungs clear to auscultation Cardiovascular: Tachycardic. No murmurs. No edema. Gastrointestinal (Abdomen): Drains in place. Some mild bruising. Mildly tender to palpation. Neurologic: CN's II-XI intact bilaterally Results & Data Vital Signs (Past 12 Hours) Vital Signs Temp Pulse Pulse Resp BP Pulse Ox 07/21/19 09:24 126 H 121/70 07/21/19 09:04 137 H 108/73 07/21/19 07:26 132 H 138/72 07/21/19 06:19 122 H 18 106/68 91 07/21/19 06:00 128 H 30 H 97 07/21/19 05:47 118 H 21 120/71 96 07/21/19 05:20 120 H 21 97/68 L 94 07/21/19 05:00 130 H 15 97 07/21/19 04:30 130 H 121/77 07/21/19 04:19 125 H 23 121/77 95 07/21/19 04:00 98.2 F 124 H 25 H 94 07/21/19 03:19 126 H 16 131/75 96 07/21/19 03:00 120 H 21 95 07/21/19 02:31 128 H 21 138/71 95 07/21/19 02:27 126 H 26 H 160/127 H 98 07/21/19 02:21 116 H 18 95 07/21/19 02:03 150 H 180/93 H 07/21/19 02:00 133 H 18 95 07/21/19 01:20 90 28 H 180/93 H 96 07/21/19 01:00 102 H 36 H 96 07/21/19 00:19 102 H 21 176/93 H 96 07/21/19 00:00 99.1 F 102 H 22 95 07/20/19 23:20 127 H 21 161/85 H 96 07/20/19 23:00 113 H 20 96 Coding Level of Care Code Critical Care 1st 30-74 mins Diagnoses S/P admission to ICU (intensive care unit) Infiltrate of right lung present on chest x-ray R91.8 Atrial tachycardia I47.1 Colon stricture K56.699 Time Spent (min) 35
[2019-07-21] MEDS ORDERED: ENOXAPARIN INJ 40 MG/0.4 ML SYR SQ SCH (11:00)
--- NOTE | 2019-07-21 11:07 | Hospitalist Progress Note ---
Date of Service July 21, 2019 Assessment & Plan (1) Small bowel obstruction: (1) Small bowel obstruction: Status post colonoscopy, showing stricture of the colonic splenic flexure, biopsy performed, pathology pending s/p Colon resection 07/19/2019 Postoperatively: Atrial fibrillation, in RVR-new onset Developed 07/21/2019 Nature Photographer consulted Anemia likely secondary to acute blood loss Transfused 1 unit of packed RBCs for hemoglobin 7.7, hemoglobin now stable at around 8 right upper lobe opacity on CXR saturating well on 2 L NC, not in distress, clear breath sounds BL possible atelectasis? mucus plug? Continue incentive spirometry, pathology lab technician following Xopenex every 4 hours will continue to monitor continue close monitoring in the ICU Nutrition Started clear liquid diet TPN started 07/20/2019 Acute renal failure on CKD 3 Resolved (2) Lesion of bladder: Dr. Banks's notes: Appreciate urology input and recommendation To have outpatient follow-up and probable cystoscopy as an outpatient Appointment with Dr. Olivia as an outpatient on 29 July for further evaluation of hydronephrosis and suspected bladder lesion (3) Lesion of colon: Management per #1 (4) Rib lesion: Could have secondary to metastatic lesion with history of CA breast in the past and suspicion for colon and/or urinary bladder -Remote history of breast cancer, previously followed with Dr. Fong (5) Bilateral hydronephrosis: -CT notes 1 cm bladder lesion and possible transverse colon and rib lesions, bilateral hydronephrosis; possible carcinomatosis as etiology for SBO Urologist consulted Outpatient follow-up recommended (6) acute renal failure on CKD (chronic kidney disease), stage III: - baseline creat runs in the mid ones -Noted postoperatively Creatinine from 1.05, increased to 2, now down to 1.0 -From relative hypotension perioperatively? Continue to monitor (7) DM type 2 (diabetes mellitus, type 2): -Hgb A1c 6.9 05/2019 -Hold oral agents and utilize NovoLog per protocol while hospitalized (8) HTN (hypertension): Usually on amlodipine and atenolol Metoprolol 5 mg every 4 hours IV ordered while npo (9) Temporal arteritis: -Receives Actemra injections every 14 days - Actemra May need to be placed on hold after surgery (10) Dyslipidemia: -Continue statin (11) DVT prophylaxis: Still having serosanguineous drainage per BELA drain -SCDs Disposition Lives with family at home May need to be transitioned to rehab or senior care facility after hospitalization Subjective Follow-up for small bowel obstruction, status post colonic resection Seen resting in bed, appears somewhat weak, but alert and oriented Converted to atrial fibrillation with RVR Denies shortness of breath, chest pain, dizziness, nausea Having pain over the surgical site abdominal exam-moderate Tolerating clear liquid diet for breakfast so far No other symptoms Review of Systems Review of Systems: All systems reviewed & are unremarkable except as noted in HPI & below Physical Exam Physical Exam: General- oriented x 3, not in distress, speaks in sentences with no effort or accessory muscle use Eyes- anicteric Neck- no JVD Lungs- clear breath sounds bilaterally, no crackles auscultation Heart-tachycardia, irregularly irregular rhythm; no murmurs Abdomen- normal bowel sounds, nondistended, soft, nontender Dressing in place, BELA drain in place with serosanguineous output Extremities- no pretibial edema, no calf tenderness Neuro- alert, oriented x 3; no gross focal neurologic deficits Skin- warm & dry Results & Data Vital Signs (Past 12 Hours) Vital Signs Temp Pulse Pulse Resp BP Pulse Ox 07/21/19 09:24 126 H 121/70 07/21/19 09:04 137 H 108/73 07/21/19 07:26 132 H 138/72 07/21/19 06:19 122 H 18 106/68 91 07/21/19 06:00 128 H 30 H 97 07/21/19 05:47 118 H 21 120/71 96 07/21/19 05:20 120 H 21 97/68 L 94 07/21/19 05:00 130 H 15 97 07/21/19 04:30 130 H 121/77 07/21/19 04:19 125 H 23 121/77 95 07/21/19 04:00 36.8 C 124 H 25 H 94 07/21/19 03:19 126 H 16 131/75 96 07/21/19 03:00 120 H 21 95 07/21/19 02:31 128 H 21 138/71 95 07/21/19 02:27 126 H 26 H 160/127 H 98 07/21/19 02:21 116 H 18 95 07/21/19 02:03 150 H 180/93 H 07/21/19 02:00 133 H 18 95 07/21/19 01:20 90 28 H 180/93 H 96 07/21/19 01:00 102 H 36 H 96 07/21/19 00:19 102 H 21 176/93 H 96 07/21/19 00:00 37.3 C 102 H 22 95 07/20/19 23:20 127 H 21 161/85 H 96
[2019-07-21] MEDS ORDERED: ACETAMINOPHEN 1,000 MG/100 ML VIAL IV SCH (11:15)
[2019-07-21] MEDS ORDERED: Nursing to Pharmacy Communication ONE (11:27)
[2019-07-21] MEDS ORDERED: dilTIAZem HCl 5 MG/ML 5 ML VIAL IV ONE (11:34)
[2019-07-21] MEDS ORDERED: AMIODARONE / D5W 150 MG/100 ML BAG IV STA (11:39)
[2019-07-21] MEDS ORDERED: AMIODARONE IV BOLUS / DRIP IV STA (11:39)
[2019-07-21] MEDS ORDERED: AMIODARONE / D5W 360 MG/200 ML BAG IV SCH (11:45)
[2019-07-21] MEDS: DOCUSATE SODIUM/SENNA 50/8.6MG TAB PO SCH ×2 (11:59→20:26)
[2019-07-21] MEDS: ACETAMINOPHEN 500 MG TAB PO SCH ×2 (12:04→22:00)
--- NOTE | 2019-07-21 12:07 | Cardiology Consultation ---
Date of Consultation July 21, 2019 Assessment & Plan (1) Paroxysmal atrial fibrillation: Patient's blood pressure has been borderline low, even prior to the development of atrial fibrillation. At this time, I agree with the critical care team, the amiodarone is indicated for rhythm control strategy, she has been in atrial fibrillation less than 12 hours, and I think a rhythm control strategy would be ideal. She is not a candidate for anticoagulation at present due to her ongoing ind welling abdominal drain, anemia, and recent rectus sheath hematoma. Repeat magnesium level was normal at 2 this morning, potassium 3.5 and therefore IV potassium replacement will be administered. She does not have any subjective symptoms palpitations or any symptoms suggestive angina at present. I plan to proceed with an echocardiogram, will likely perform this tomorrow to allow for interval additional heart rate control to allow better diagnostic images. History of Present Illness Attending Physician: Ezequiel López MD History of Present Illness Kristina Contreras is an 83 year old female seen in cardiology consultation in ICU room 108 per the request of Dr De León for the evaluation of atrial fibrillation. The patient follows with Dr. Thompson of [facility] as her PCP. She has not seen cardiology in the past, however, her , Cal, follows with Dr Moon of our practice. Cal and their daughter , Elaina, accompany her at the bedside. The patient was initially admitted on 07/12/2019 having presented with abdominal pain and vomiting. She was found to have a small bowel obstruction as well as bilateral hydronephrosis. Presenting EKG on 07/12/2019 revealed normal sinus rhythm at 74 bpm. On 07/18/2019 she underwent laparoscopic assisted colon resection which was converted to an open colon resection for a transverse colon stricture. Tachycardia was noted just after midnight on 07/20/2019 with a EKG at that time suggestive of sinus tachycardia at 115 bpm. She received several doses of IV metoprolol yesterday with transient heart rate controlled, and ultimately converted to atrial fibrillation overnight last night. At present, atrial fibrillation 135 bpm is present. This was confirmed on recent EKG. She has had transient hypotension, and her systolic blood pressure upon my arrival this morning was 79 mmHg. This had improved to systolic readings of 132, and then 106 on serial measurements. Recent CT scan performed on 07/19/2019 revealed a 6 cm x 4 cm right rectus sheath hematoma. Other issues have included postoperative acute blood loss anemia for which she is received transfusion of packed red blood cells. Had a collapsed right upper lobe on chest x-ray. Her past medical history is notable for temporal arteritis, hypertension, dyslipidemia. Allergies Allergy/AdvReac Type Severity Reaction Status Date / Time Influenza Virus Vaccines Allergy Mild SWELLING Verified 07/12/19 08:28 Home Medications Home Medications Medication Instructions Recorded Confirmed Type Actemra 162 mg IV .Q OTHER WEEK 03/28/18 07/14/19 History alprazolam [Xanax] 0.25 mg PO DAILY PRN 03/28/18 07/12/19 History ascorbic acid (vitamin C) [Vitamin 500 mg PO QAM 03/28/18 07/12/19 History C] atenolol [Tenormin] 50 mg PO BID 03/28/18 07/12/19 History calcium carbonate-vitamin D3 1 tab PO BID 03/28/18 07/12/19 History [Os-Arcadio 500 + D3] escitalopram oxalate [Lexapro] 10 mg PO QAM 03/28/18 07/12/19 History multivitamin 1 tab PO QAM 03/28/18 07/12/19 History rosuvastatin [Crestor] 20 mg PO QAM 03/28/18 07/12/19 History cranberry 400 mg PO QAM 07/07/19 07/12/19 History famotidine [Pepcid] 20 mg PO BID 07/07/19 07/12/19 History linagliptin [Tradjenta] 5 mg PO QAM 07/07/19 07/12/19 History amitriptyline 25 mg PO HS 07/12/19 07/12/19 History amlodipine 5 mg PO DAILY 07/12/19 07/12/19 History esomeprazole magnesium [Nexium] 20 mg PO DAILY 07/12/19 07/12/19 History latanoprost 1 drp OPHTHALMIC (EYE) PM 07/12/19 07/12/19 History ondansetron HCl [Zofran] 4 mg PO Q6H PRN 07/12/19 07/12/19 History tramadol 50 mg PO Q8H PRN 07/12/19 07/12/19 History Patient History Medical History (Updated 07/21/19 @ 12:22 by Dany Mccray DO) Anxiety Arthritis Atrial tachycardia Cataracts, bilateral CKD (chronic kidney disease), stage III DM type 2 (diabetes mellitus, type 2) Dyslipidemia HTN (hypertension) HX: breast cancer S/P admission to ICU (intensive care unit) Temporal arteritis Surgical History (Updated 07/19/19 @ 11:37 by Kennedy Prado DO) H/O right mastectomy Jun 2018 History of appendectomy History of cataract surgery S/P LIZBETH-BSO Family History Mother Diabetes Social History Preferred Language: [place]an Communication Ability: Effective Repair Servicer Required: No Beliefs That Will Affect Care: None marital status: Current Living Situation: Spouse Other Information That Helps Us Care for You: No Feels Safe at Home: Yes Safety Concerns: Feels Safe At This Time Smoking Status: Never smoker Hx Alcohol Use: No Hx Substance Use: No Review of Systems Review of Systems: All systems reviewed & are unremarkable except as noted in HPI & below Cardiovascular: no chest pain, no chest pain at rest and no dyspnea Additional Comments: Denies subjective palpitations Physical Exam Physical Exam: Temp Pulse Resp BP Pulse Ox 36.8 C 126 H 18 121/70 91 07/21/19 04:00 07/21/19 09:24 07/21/19 06:19 07/21/19 09:24 07/21/19 06:19 Constitutional: WD/WN, vitals as above Respiratory: normal respiratory effort, lungs clear to auscultation Cardiovascular: RRR, no murmur, no edema Gastrointestinal (Abdomen): normal bowel sounds, soft, nontender, no hepatosplenomegaly Musculoskeletal: Knee-high SCDs in place Skin: no rashes, warm and dry Neurologic: Ill in appearance, no focal deficits, moves all 4 extremities on commands, Results & Data Vital Signs (Past 12 Hours) Vital Signs Temp Pulse Pulse Resp BP Pulse Ox 07/21/19 09:24 126 H 121/70 07/21/19 09:04 137 H 108/73 07/21/19 07:26 132 H 138/72 07/21/19 06:19 122 H 18 106/68 91 07/21/19 06:00 128 H 30 H 97 07/21/19 05:47 118 H 21 120/71 96 07/21/19 05:20 120 H 21 97/68 L 94 07/21/19 05:00 130 H 15 97 07/21/19 04:30 130 H 121/77 07/21/19 04:19 125 H 23 121/77 95 07/21/19 04:00 36.8 C 124 H 25 H 94 07/21/19 03:19 126 H 16 131/75 96 07/21/19 03:00 120 H 21 95 07/21/19 02:31 128 H 21 138/71 95 07/21/19 02:27 126 H 26 H 160/127 H 98 07/21/19 02:21 116 H 18 95 07/21/19 02:03 150 H 180/93 H 07/21/19 02:00 133 H 18 95 07/21/19 01:20 90 28 H 180/93 H 96 07/21/19 01:00 102 H 36 H 96 07/21/19 00:19 102 H 21 176/93 H 96 07/21/19 00:00 37.3 C 102 H 22 95 Laboratory Results Cardiac Enzymes 07/21/19 Range/Units 11:41 AST 17 (15-37) U/L CBC 07/21/19 Range/Units 04:05 WBC 16.49 H (4.8-10.8) K/uL RBC 2.57 L (4.2-5.4) M/uL Hgb 8.2 L (12.0-16.0) g/dL Hct 24.3 L (37-47) % Plt Count 127 L (130-400) K/uL Neut # (Auto) 13.07 H (1.4-6.5) K/uL Lymph # (Auto) 0.75 L (1.2-3.4) K/uL [place] # (Auto) 1.82 H (0.11-0.59) K/uL Eos # (Auto) 0.71 H (0-0.5) K/uL Baso # (Auto) 0.02 (0-0.2) K/uL Comprehensive Metabolic Panel 07/21/19 07/21/19 Range/Units 04:05 11:41 Sodium 138 141 (136-145) mmol/L Potassium 3.7 3.5 (3.5-5.1) mmol/L Chloride 108 H 106 (98-107) mmol/L Carbon Dioxide 28 31 (21-32) mmol/L BUN 24 H 26 H (7-18) mg/dl Creatinine 0.97 D 1.03 (0.6-1.2) mg/dl Glucose 184 H 190 H (70-99) mg/dl Calcium 8.1 L 8.4 L (8.5-10.1) mg/dl Direct Bilirubin < 0.1 (0-0.2) mg/dl AST 17 (15-37) U/L ALT 18 (12-78) U/L Albumin 2.1 L (3.4-5.0) gm/dl Intake and Output 07/20/19 07/21/19 07/21/19 22:59 06:59 14:59 Intake Total 966.16 / 966.16 0 / 0 Output Total 520 / 1780 835 / 1780 Balance 446.16 / -813.84 -835 / -813.84 0 / 0 Intake: IV 966.16 / 966.16 0 / 0 Custom Central Pn 966.16 ML In 966.16 / 966.16 TPN Bag 0 ml @ 40.25 mls/hr IV .Q24H NENA Rx#:[id number] Kodi-Synephrine 20 mg In D5w 500 0 / 0 ml @ 0 MCG/KG/MIN IV .Q0M NENA Rx#:[id number] Output: Urine Amount (Catheter) 400 / 1440 675 / 1440 Weber/Indwelling 400 / 1440 675 / 1440 Drain Output 120 / 340 160 / 340 Abdomen BELA 120 / 340 160 / 340 Other: Weight 66.4 kg Patient Weight 07/22/19 06:59 Weight 66.4 kg Diagnostic Findings EKG performed this morning 07/21/2019 at 10:30 AM and reviewed independently: Low the computer interpretation suggests atrial flutter, per my review of telemetry, together with the EKG, I think the patient's rhythm is likely atrial fibrillation with rapid ventricular response, LVH by voltage criteria, compared to 07/20/2019 atrial fibrillation has replaced sinus tachycardia.
[2019-07-21 12:12] LABS: Alanine Aminotransferase 18 U/L (12-78); Albumin Level 2.1 gm/dl (3.4-5.0); Aspartate Aminotransferase 17 U/L (15-37); BUN Creatinine Ratio 25.5 (10-20); Bilirubin Direct < 0.1 mg/dl (0-0.2); Blood Urea Nitrogen 26 mg/dl (7-18); Calcium 8.4 mg/dl (8.5-10.1); Carbon Dioxide 31 mmol/L (21-32); Chloride 106 mmol/L (98-107); Creatinine Clr Calc Pharmacy 38.8 ml/min; Est GFR (African American) 58.2; Est GFR (Non-African American) 50.2; Glucose 190 mg/dl (70-99); Potassium 3.5 mmol/L (3.5-5.1); Sodium 141 mmol/L (136-145)
--- NOTE | 2019-07-21 12:13 | XRay Report ---
KUB HISTORY: Generalized abdominal pain. COMPARISON: Abdominal CT 07/19/2019. FINDINGS: Midline skin julianna in the left upper quadrant percutaneous drain are noted. The bowel gas pattern is unremarkable. No evidence for bowel obstruction. Suture material within the left side of the abdomen. No renal calculi. No ureteral calculi. No pneumoperitoneum or pneumatosis. IMPRESSION: Postoperative changes. No evidence for bowel obstruction. ACT 112: Negative or not required by law. Electronically signed by: Waqas Ferrer M.D. 07/21/2019 12:12 PM
[2019-07-21 12:15] LABS: Alkaline Phosphatase 90 U/L (45-117); Bilirubin,Total 0.4 mg/dl (0.2-1); Total Protein 4.8 gm/dl (6.4-8.2)
[2019-07-21] MEDS ORDERED: POTASSIUM CHLORIDE / WTR 20 MEQ/100 ML PLCT IV ONE (12:45)
--- NOTE | 2019-07-21 13:21 | Pharmacy Report ---
Pharmacy Glycemic Short Note 2 - Date of Service July 21, 2019 - Glycemic Short BSG Results (Last 24 hours): 07/20/19 07/20/19 07/21/19 15:48 20:08 00:24 Glucose POC Glucose 173 H 161 H 159 H 07/21/19 07/21/19 07/21/19 04:05 04:07 07:45 Glucose 184 H POC Glucose 189 H 186 H 07/21/19 07/21/19 11:24 11:41 Glucose 190 H POC Glucose 190 H OUTPATIENT ANTIDIABETIC REGIMEN: * Linagliptin 5mg PO daily * A1c = 6.9% 05/2019 ASSESSMENT: * Type 2 diabetic admitted for SBO, now s/p resection * She is currently receiving TPN for prolonged NPO status, however today her NGT was removed and she was ordered clear liq diet * Pt experiencing A fib w/ RVR, not responsive to Lopressor IV and now initiated on Amiodarone gtt (provides continuous dextrose as carrier) * BSGs running higher today vs yesterday despite increased quantity of insulin in current TPN bag; will continue to up-titrate insulin dose in TPN. Current bag of TPN contains 100gm dextrose and 20 units insulin. 6 units correctional insulin have also been administered since this bag of TPN hung. PLAN FOR INPATIENT GLYCEMIC CONTROL: * Hold outpatient oral diabetes medications (linagliptin) * Increase insulin in TPN to 50 units (200grams dextrose in bag) * Basal insulin * Lantus SQ BID per scale: * 0 units if BSG less than 110 * 6 units if BSG 110-180 * 11 units if BSG above 180 * Bolus insulin * NovoLog per scale ACHS and at 0200 * Goal Range: Low 110 mg/dL - High 140 mg/dL * Correction Factor: 25 mg/dL/unit * Nutritional / Prandial insulin per carb ratio of 1 unit per 12 grams CHO consumed PLAN FOR DISCHARGE: * to be determined
--- NOTE | 2019-07-21 13:22 | Pharmacy Report ---
Pharmacy Glycemic Short Note 2 - Date of Service July 21, 2019 - Glycemic Short BSG Results (Last 24 hours): 07/20/19 07/20/19 07/21/19 15:48 20:08 00:24 Glucose POC Glucose 173 H 161 H 159 H 07/21/19 07/21/19 07/21/19 04:05 04:07 07:45 Glucose 184 H POC Glucose 189 H 186 H 07/21/19 07/21/19 11:24 11:41 Glucose 190 H POC Glucose 190 H OUTPATIENT ANTIDIABETIC REGIMEN: * ASSESSMENT: * PLAN FOR INPATIENT GLYCEMIC CONTROL: * Hold outpatient oral diabetes medications * Basal insulin * Lantus [] units SQ BID * Bolus insulin * NovoLog per scale ACHS or Q6hrs while NPO * Goal Range: Low [] mg/dL - High [] mg/dL * Correction Factor: [] mg/dL/unit * Nutritional / Prandial insulin per carb ratio of 1 unit per [] grams CHO consumed PLAN FOR DISCHARGE: *
--- NOTE | 2019-07-21 15:34 | Electrocardiogram Report ---
Test Reason : Blood Pressure : / mmHG Vent. Rate : 132 BPM Atrial Rate : 300 BPM P-R Int : 000 ms QRS Dur : 078 ms QT Int : 320 ms P-R-T Axes : 000 -14 133 degrees QTc Int : 474 ms Poor data quality, interpretation may be adversely affected Atrial flutter with variable A-V block Left ventricular hypertrophy with repolarization abnormality ( R in aVL ) Abnormal ECG When compared with ECG of 20-JUL-2019 00:47, Atrial flutter has replaced Sinus rhythm Inverted T waves have replaced nonspecific T wave abnormality in Lateral leads Confirmed by Juvenal Reid ([id number]) on 07/21/2019 3:33:28 PM Referred By: REFERRED SELF Confirmed By:Juvenal Reid
[2019-07-21] MEDS ORDERED: CENTRAL PN IV SCH (16:00)
[2019-07-21] MEDS ORDERED: TPN IV SCH (16:00)
[2019-07-21] MEDS: AMIODARONE / D5W 360 MG/200 ML BAG IV SCH ×2 (17:39→18:39)
[2019-07-21] MEDS: LATANOPROST 0.005% OP SOLN 2.5 ML BTL OP SCH (20:37)
[2019-07-21] MEDS ORDERED: HEPARIN SOD 5,000 UNIT/0.5 ML VIAL SQ SCH (21:00)
[2019-07-22] MEDS: METOPROLOL TARTRATE 25 MG TAB PO SCH ×2 (01:23→05:25)
[2019-07-22] MEDS ORDERED: INSULIN ASPART 100 UNITS/ML 3 ML PEN SC ONE (02:00)
[2019-07-22 04:59] LABS: Basophils # (auto) 0.02 K/uL (0-0.2); Basophils % (auto) 0.1 %; Eosinophils # (auto) 0.56 K/uL (0-0.5); Eosinophils % (auto) 4.2 %; Hematocrit (blood only) 24.3 % (37-47); Immature Granulocytes # (auto) 0.16 K/uL (0.00-0.02); Immature Granulocytes % (auto) 1.2 %; Lymphocytes # (auto) 0.74 K/uL (1.2-3.4); Lymphocytes % (auto) 5.5 %; Mean Corpuscular Hemoglobin 32.1 pg (25-34); Mean Corpuscular Hgb Conc 32.9 g/dL (32-36); Mean Corpuscular Volume 97.6 fL (80-100); Mean Platelet Volume 9.7 fL (7.4-10.4); Monocytes # (auto) 1.57 K/uL (0.11-0.59); Monocytes % (auto) 11.7 %; Neutrophils # (auto) 10.39 K/uL (1.4-6.5); Neutrophils % (auto) 77.3 %; Nucleated RBC # (auto) 0.08 K/uL (0-0); Nucleated RBC % (auto) 0.6 %; Platelet Count 135 K/uL (130-400); RDW Coefficient of Variation 14.8 % (11.5-14.5); RDW Standard Deviation 51.6 fL (36.4-46.3); Red Blood Count 2.49 M/uL (4.2-5.4); White Blood Count 13.44 K/uL (4.8-10.8)
[2019-07-22] MEDS: ACETAMINOPHEN 500 MG TAB PO SCH ×3 (05:24→21:46)
[2019-07-22 05:34] LABS: BUN Creatinine Ratio 33.5 (10-20); Calcium 8.2 mg/dl (8.5-10.1); Creatinine Clr Calc Pharmacy 44.4 ml/min; Est GFR (African American) 68.5; Est GFR (Non-African American) 59.1; Magnesium 1.8 mg/dl (1.8-2.4); Potassium 3.8 mmol/L (3.5-5.1)
[2019-07-22] MEDS ORDERED: MAGNESIUM SULFATE / D5W 1 GM/100 ML BAG IV ONE (06:15)
--- NOTE | 2019-07-22 06:44 | Surgery Progress Note ---
Date of Service July 22, 2019 Assessment & Plan (1) Colon stricture: POD 4 Patient tolerated diet liquids no bowel movement but passing flatus go slow with increasing diet Continue with cardiac monitoring Responded well to gentle diuresis yesterday we will hold off diuresing her today We will check a chest x-ray again today for right upper lobe consolidation If the chest x-ray is not improved today we will get pulmonary consult We will start her on heparin 5000 units subcu every 12 hours please do not give this patient Lovenox POD 3 resection transverse colon/splenic flexure seen with Dr. Andino d/c NG, start clears jerry drain removed will check amylase on Wayne drainage gently diurese, 10 mg lasix H&H stable Subjective 07/22/19 pod 4 No major complaints states some back pain no abdominal discomfort flatus but no bowel movement yet some flatus, OOB to chair yesterday Physical Exam Physical Exam: Alert coherent appears comfortable heart rate still elevated being treated The abdomen is soft Wayne drainage still serosanguineous we will remove it today amylase drawn on it yesterday was normal value Results & Data Vital Signs (Past 12 Hours) Vital Signs Temp Pulse Resp BP Pulse Ox 07/22/19 05:33 112 H 15 141/80 H 95 07/22/19 05:04 93 H 17 145/62 H 96 07/22/19 05:00 101 H 17 88 L 07/22/19 04:56 102 H 17 165/51 H 96 07/22/19 04:34 115 H 14 165/51 H 94 07/22/19 04:03 97 H 29 H 170/62 H 99 07/22/19 04:00 37.1 C 101 H 12 99 07/22/19 03:33 97 H 15 151/59 H 99 07/22/19 03:03 104 H 16 130/60 99 07/22/19 03:00 104 H 15 99 07/22/19 02:33 96 H 16 161/79 H 97 07/22/19 02:03 102 H 17 146/80 H 99 07/22/19 02:00 85 13 99 07/22/19 01:33 92 H 18 141/64 H 100 07/22/19 01:03 91 H 15 151/59 H 100 07/22/19 01:00 108 H 14 97 07/22/19 00:46 123 H 19 143/109 H 98 07/22/19 00:33 107 H 21 146/108 H 98 07/22/19 00:03 79 9 L 137/71 99 07/22/19 00:00 36.9 C 99 H 8 L 99 07/21/19 23:33 101 H 9 L 127/47 L 97 07/21/19 23:03 98 H 15 121/68 98 07/21/19 23:00 99 H 13 97 07/21/19 22:33 103 H 19 141/59 H 98 07/21/19 22:03 110 H 22 142/70 H 99 07/21/19 22:00 99 H 18 98 07/21/19 21:33 110 H 19 126/61 98 07/21/19 21:03 119 H 16 105/80 98 07/21/19 21:00 112 H 12 98 07/21/19 20:33 112 H 19 158/87 H 98 07/21/19 20:04 105 H 14 124/81 90 07/21/19 20:00 36.8 C 110 H 18 95 07/21/19 19:03 96 H 20 114/63 98 07/21/19 19:00 102 H 12 98 07/21/19 18:45 103 H 23 95 PG Care Time/CCT Total # of Minutes Spent Total Time Spent with Patient: Total time spent is greater than 50% in coordination of care (as documented) at patient's floor/unit and/or counseling patient:
[2019-07-22] MEDS: AMIODARONE / D5W 360 MG/200 ML BAG IV SCH ×2 (06:53→17:46)
--- NOTE | 2019-07-22 07:21 | XRay Report ---
XR chest 1V portable CLINICAL HISTORY: atelectasis COMPARISON STUDY: Chest radiograph July 21, 2019. FINDINGS: Right internal jugular central line remains in place. Right upper lobe airspace opacity per sists with volume loss however right upper lobe aeration has improved since exam of July 21, 2019. Left basilar opacity favors atelectasis. There is no evidence for pulmonary edema. There there may be a trace right pleural effusion. There is no pneumothorax. Cardiac size is normal. Rightward mediasti nal shift is unchanged. IMPRESSION: Persistent, but improved, right upper lobe atelectasis with improved aeration. ACT 112: Negative or not required by law. Electronically signed by: Luther Thompson M.D. 07/22/2019 7:19 AM
--- NOTE | 2019-07-22 07:53 | Anesthesiology Progress Note ---
Date of Service July 22, 2019 Anesthesia Post Procedure Vital Signs Vital Signs: Temp Pulse Resp BP Pulse Ox 07/22/19 07:03 132 H 17 123/90 97 07/22/19 07:00 92 H 15 96 07/22/19 06:34 126 H 15 174/50 H 97 07/22/19 06:03 145 H 19 148/90 H 92 07/22/19 06:00 120 H 17 94 07/22/19 05:33 112 H 15 141/80 H 95 07/22/19 05:04 93 H 17 145/62 H 96 07/22/19 05:00 101 H 17 88 L 07/22/19 04:56 102 H 17 165/51 H 96 07/22/19 04:34 115 H 14 165/51 H 94 07/22/19 04:03 97 H 29 H 170/62 H 99 07/22/19 04:00 37.1 C 101 H 12 99 07/22/19 03:33 97 H 15 151/59 H 99 07/22/19 03:03 104 H 16 130/60 99 07/22/19 03:00 104 H 15 99 07/22/19 02:33 96 H 16 161/79 H 97 07/22/19 02:03 102 H 17 146/80 H 99 07/22/19 02:00 85 13 99 07/22/19 01:33 92 H 18 141/64 H 100 07/22/19 01:03 91 H 15 151/59 H 100 07/22/19 01:00 108 H 14 97 07/22/19 00:46 123 H 19 143/109 H 98 07/22/19 00:33 107 H 21 146/108 H 98 07/22/19 00:03 79 9 L 137/71 99 07/22/19 00:00 36.9 C 99 H 8 L 99 07/21/19 23:33 101 H 9 L 127/47 L 97 07/21/19 23:03 98 H 15 121/68 98 07/21/19 23:00 99 H 13 97 07/21/19 22:33 103 H 19 141/59 H 98 07/21/19 22:03 110 H 22 142/70 H 99 07/21/19 22:00 99 H 18 98 07/21/19 21:33 110 H 19 126/61 98 07/21/19 21:03 119 H 16 105/80 98 07/21/19 21:00 112 H 12 98 07/21/19 20:33 112 H 19 158/87 H 98 07/21/19 20:04 105 H 14 124/81 90 07/21/19 20:00 36.8 C 110 H 18 95 07/21/19 19:03 96 H 20 114/63 98 07/21/19 19:00 102 H 12 98 07/21/19 18:45 103 H 23 95 07/21/19 18:00 149 H 27 H 07/21/19 17:33 127 H 17 115/65 97 07/21/19 17:03 126 H 16 129/61 97 07/21/19 17:00 36.6 C 125 H 13 97 07/21/19 16:33 147 H 16 122/76 99 07/21/19 16:03 129 H 16 130/63 99 07/21/19 16:00 117 H 14 97 07/21/19 15:33 101 H 18 134/73 97 07/21/19 15:03 119 H 11 L 120/70 91 07/21/19 15:00 124 H 14 96 07/21/19 14:33 122 H 16 132/61 99 07/21/19 14:02 121 H 21 107/65 97 07/21/19 14:00 104 H 15 96 07/21/19 13:33 127 H 18 108/64 96 07/21/19 13:03 146 H 17 124/63 96 07/21/19 13:00 118 H 21 94 07/21/19 12:32 123 H 22 124/73 96 07/21/19 12:30 125 H 16 96 07/21/19 12:02 127 H 16 106/76 96 07/21/19 12:00 127 H 23 97 07/21/19 11:58 137 H 25 H 131/88 97 07/21/19 11:51 133 H 18 129/115 H 100 07/21/19 11:32 127 H 18 79/49 L 95 07/21/19 11:30 129 H 22 95 07/21/19 11:19 131 H 15 88/55 L 95 07/21/19 11:00 139 H 20 97 07/21/19 10:53 128 H 29 H 108/58 L 93 07/21/19 10:49 122 H 13 169/154 H 99 07/21/19 10:30 124 H 17 95 07/21/19 10:19 139 H 19 86/62 L 96 07/21/19 10:00 128 H 15 94 07/21/19 09:30 100 H 18 97 07/21/19 09:24 126 H 121/70 07/21/19 09:19 118 H 23 121/70 94 07/21/19 09:04 137 H 108/73 07/21/19 09:00 130 H 16 96 07/21/19 08:30 132 H 17 97 07/21/19 08:19 150 H 12 108/73 95 07/21/19 08:00 36.9 C 147 H 17 97 Pain Intensity Abdomen: Pain Intensity: 2 Transfer of Care Handoff Completed per policy Notes Mental Status: alert / awake / arousable Patient Amnestic to Procedure: Yes Nausea / Vomiting: see Notes below Pain: adequately controlled Airway Patency, RR, SpO2: stable & adequate BP & HR: stable & adequate and see Notes below Hydration State: stable & adequate and see Notes below Anesthetic Complications: no major complications apparent and Pt Satisfied with anesthetic care Notes: The patient is POD #3 after colon resection. She received PRBC after the surgery due to anemia. Postoperatively, she developed atrial fibrillation with RVR for which she is being treated. She is being monitored in the ICU. Today she is complaining of some nausea, but she is otherwise sitting comfortably in bed. She has 3 [place] by [place]. She is tachycardic. Her other vital signs are stable.
[2019-07-22] MEDS: ONDANSETRON INJ 2 MG/ML 2 ML VIAL IV PRN ×2 (08:00→21:48)
[2019-07-22] MEDS: ESCITALOPRAM OXALATE 10 MG TAB PO SCH (08:08)
[2019-07-22] MEDS: NYSTATIN SUSP 500,000 U/5 ML UDC PO SCH ×4 (08:08→21:45)
[2019-07-22] MEDS: INSULIN GLARGINE SOLOSTAR 100 UNITS/ML 3 ML PEN SC SCH ×2 (08:10→21:44)
[2019-07-22] MEDS: INSULIN ASPART 100 UNITS/ML 3 ML PEN SC SCH ×4 (08:12→21:59)
[2019-07-22] MEDS: DOCUSATE SODIUM/SENNA 50/8.6MG TAB PO SCH ×2 (08:17→21:48)
[2019-07-22] MEDS: METOPROLOL TARTRATE 1 MG/ML VIAL IV PRN ×2 (08:17→14:51)
--- NOTE | 2019-07-22 09:22 | Critical Care Progress Note ---
Date of Service July 22, 2019 Assessment & Plan (1) S/P admission to ICU (intensive care unit): Patient was discussed on multidisciplinary rounds. 83-year-old female with a past medical history of breast cancer who recently underwent a colon resection due to a stricture. Since that period time she was found to have a right upper lobe collapse and is also having episodes of atrial tachycardia and atrial fibrillation. Patient is currently on metoprolol p.o. and amiodarone. Her rates are bit better controlled today. She continues to have evidence of right upper lobe collapse which is improving from the previous chest x-rays. She is not profoundly hypoxemic or in any respiratory distress. I do not think that this is playing a significant role in her atrial tachycardia. She did have some food this morning and this would be a relative contraindication for bronchoscopy at this time. She is very comfortable and stable. Please note that I am the pv installer tech and I feel that continued percussive therapy to the right upper lobe area and early mobilization would benefit her most in regards to opening of her airways. I did give her the option of bronchoscopy and she was uncertain about this. I think she is safe to transfer out of the ICU to the floor at this point he had a chest x-ray tomorrow continues to show unchanged right upper lobe collapse, then we can proceed with bronchoscopy at that point as long as her heart rates are not very elevated and she is n.p.o. after midnight. She does have a rectus sheath hematoma, however, surgery believes it is safe to start heparin this time. We will pull the central line out today. Thank you for allowing us to participate in the care of this patient. (2) Infiltrate of right lung present on chest x-ray: (3) Atrial tachycardia: (4) Colon stricture: Subjective Patient continues to improve. Her heart rate is a little bit better controlled today at around 115-1 20. She is sitting up in bed. She has no significant complaints. She denies any dyspnea. No nausea, fevers or chills. No chest pain. Physical Exam Constitutional: WD/WN, vitals as above Respiratory: normal respiratory effort, lungs clear to auscultation Cardiovascular: RRR, no murmur, no edema Gastrointestinal (Abdomen): Incisions intact. Mildly tender to palpation. Neurologic: CN's II-XI intact bilaterally Results & Data Vital Signs (Past 12 Hours) Vital Signs Temp Pulse Resp BP Pulse Ox 07/22/19 08:17 121 H 125/65 07/22/19 07:03 132 H 17 123/90 97 07/22/19 07:00 92 H 15 96 07/22/19 06:34 126 H 15 174/50 H 97 07/22/19 06:03 145 H 19 148/90 H 92 07/22/19 06:00 120 H 17 94 07/22/19 05:33 112 H 15 141/80 H 95 07/22/19 05:04 93 H 17 145/62 H 96 07/22/19 05:00 101 H 17 88 L 07/22/19 04:56 102 H 17 165/51 H 96 07/22/19 04:34 115 H 14 165/51 H 94 07/22/19 04:03 97 H 29 H 170/62 H 99 07/22/19 04:00 98.8 F 101 H 12 99 07/22/19 03:33 97 H 15 151/59 H 99 07/22/19 03:03 104 H 16 130/60 99 07/22/19 03:00 104 H 15 99 07/22/19 02:33 96 H 16 161/79 H 97 07/22/19 02:03 102 H 17 146/80 H 99 07/22/19 02:00 85 13 99 07/22/19 01:33 92 H 18 141/64 H 100 07/22/19 01:03 91 H 15 151/59 H 100 07/22/19 01:00 108 H 14 97 07/22/19 00:46 123 H 19 143/109 H 98 07/22/19 00:33 107 H 21 146/108 H 98 07/22/19 00:03 79 9 L 137/71 99 07/22/19 00:00 98.4 F 99 H 8 L 99 07/21/19 23:33 101 H 9 L 127/47 L 97 07/21/19 23:03 98 H 15 121/68 98 07/21/19 23:00 99 H 13 97 07/21/19 22:33 103 H 19 141/59 H 98 07/21/19 22:03 110 H 22 142/70 H 99 07/21/19 22:00 99 H 18 98 07/21/19 21:33 110 H 19 126/61 98 Coding Level of Care Code 90175 Subseq Hosp Care Lvl 3 Diagnoses S/P admission to ICU (intensive care unit) Infiltrate of right lung present on chest x-ray R91.8 Atrial tachycardia I47.1 Colon stricture K56.699
[2019-07-22] MEDS ORDERED: HEPARIN SOD 5,000 UNIT/0.5 ML VIAL SQ STA (11:11)
--- NOTE | 2019-07-22 11:11 | Cardiology Progress Note ---
Date of Service July 22, 2019 Assessment & Plan (1) Paroxysmal atrial fibrillation: Atrial fibrillation has persisted since seo coordinator hours of 07/21/2019. Chest x-ray performed today reveals ongoing right upper lobe atelectasis, but it is improved per radiology report. Patient is postoperative day 4 status post partial colectomy for transverse colon stricture. Hemoglobin is stable. She also did have a rectus sheath hematoma noted on CT scan earlier this hospital stay. I discussed anticoagulation candidacy with Dr. Andino, who is agreeable to anticoagulation from a surgical standpoint, but I have ongoing concerns about her bleeding risk for postoperative state as well as the previous rectus sheath hematoma, and her hemoglobin that is already borderline low at 8 g/dL. We will therefore proceed with subcutaneous heparin 5000 units every 12 for DVT prophylaxis and continue her knee-high sequential pneumatic compression devices, and will hold off on systemic anti-coagulation in terms of stroke prophylaxis for her atrial fibrillation. We will continue amiodarone infusion, increase oral metoprolol to 50 mg p.o. every 6 hours, his blood pressure is much improved, and she has been tolerating metoprolol 25 mg every 6 hours since yesterday. An echocardiogram has been performed, and will be reviewed. 2.5 L of urine output noted yesterday, for net balance of +120 milliliters yesterday, will continue to monitor off of diuretic therapy for now. Subjective Patient comfortable. Although she is still in atrial fibrillation, her ventricular rates are improved, for the most part in the 90 to 100 bpm range down from 120-132 yesterday. Denies subjective cardiac complaint. Pulse oximetry much improved. Physical Exam Physical Exam: Temp Pulse Resp BP Pulse Ox 36.4 C L 92 H 21 131/67 100 07/22/19 08:03 07/22/19 09:34 07/22/19 09:34 07/22/19 09:34 07/22/19 09:34 Constitutional: WD/WN, vitals as above Respiratory: Decreased breath sounds at the right upper lung patterson, no rales appreciated Cardiovascular: Rate/Rhythm: regular rhythm Heart Sounds: no murmur Vessels: no JVD Extremities: no edema Gastrointestinal (Abdomen): Abdominal incision dressed, drain pulled by the surgery service. Neurologic: PERRL, EOMI, accommodation nl, no face palsy, no dysarthria Results & Data Vital Signs (Past 12 Hours) Vital Signs Temp Pulse Resp BP Pulse Ox 07/22/19 09:34 92 H 21 131/67 100 07/22/19 08:17 121 H 125/65 07/22/19 08:03 36.4 C L 102 H 14 125/65 100 07/22/19 07:03 132 H 17 123/90 97 07/22/19 07:00 92 H 15 96 07/22/19 06:34 126 H 15 174/50 H 97 07/22/19 06:03 145 H 19 148/90 H 92 07/22/19 06:00 120 H 17 94 07/22/19 05:33 112 H 15 141/80 H 95 07/22/19 05:04 93 H 17 145/62 H 96 07/22/19 05:00 101 H 17 88 L 07/22/19 04:56 102 H 17 165/51 H 96 07/22/19 04:34 115 H 14 165/51 H 94 07/22/19 04:03 97 H 29 H 170/62 H 99 07/22/19 04:00 37.1 C 101 H 12 99 07/22/19 03:33 97 H 15 151/59 H 99 07/22/19 03:03 104 H 16 130/60 99 07/22/19 03:00 104 H 15 99 07/22/19 02:33 96 H 16 161/79 H 97 07/22/19 02:03 102 H 17 146/80 H 99 07/22/19 02:00 85 13 99 07/22/19 01:33 92 H 18 141/64 H 100 07/22/19 01:03 91 H 15 151/59 H 100 07/22/19 01:00 108 H 14 97 07/22/19 00:46 123 H 19 143/109 H 98 07/22/19 00:33 107 H 21 146/108 H 98 07/22/19 00:03 79 9 L 137/71 99 07/22/19 00:00 36.9 C 99 H 8 L 99 07/21/19 23:33 101 H 9 L 127/47 L 97 Laboratory Results Cardiac Enzymes 07/21/19 Range/Units 11:41 AST 17 (15-37) U/L CBC 07/22/19 Range/Units 04:27 WBC 13.44 H (4.8-10.8) K/uL RBC 2.49 L (4.2-5.4) M/uL Hgb 8.0 L (12.0-16.0) g/dL Hct 24.3 L (37-47) % Plt Count 135 (130-400) K/uL Neut # (Auto) 10.39 H (1.4-6.5) K/uL Lymph # (Auto) 0.74 L (1.2-3.4) K/uL [place] # (Auto) 1.57 H (0.11-0.59) K/uL Eos # (Auto) 0.56 H (0-0.5) K/uL Baso # (Auto) 0.02 (0-0.2) K/uL Comprehensive Metabolic Panel 07/21/19 07/22/19 Range/Units 11:41 04:27 Sodium 141 138 (136-145) mmol/L Potassium 3.5 3.8 (3.5-5.1) mmol/L Chloride 106 104 (98-107) mmol/L Carbon Dioxide 31 32 (21-32) mmol/L BUN 26 H 30 H (7-18) mg/dl Creatinine 1.03 0.90 (0.6-1.2) mg/dl Glucose 190 H 146 H (70-99) mg/dl Calcium 8.4 L 8.2 L (8.5-10.1) mg/dl Direct Bilirubin < 0.1 (0-0.2) mg/dl AST 17 (15-37) U/L ALT 18 (12-78) U/L Alkaline Phosphatase 90 (45-117) U/L Total Protein 4.8 L (6.4-8.2) gm/dl Albumin 2.1 L (3.4-5.0) gm/dl Intake and Output 07/21/19 07/22/19 07/22/19 22:59 06:59 14:59 Intake Total 316.7 / 2680.338 520 / 2680.338 420 / 420 Output Total 390 / 2560 870 / 2560 Balance -73.3 / 120.338 -350 / 120.338 420 / 420 Intake: IV 316.7 / 1760.338 200 / 1760.338 100 / 100 NEXTERONE / D5W 360 mg In 200 216.7 / 416.7 200 / 416.7 ml @ 0.5 MG/MIN 16.667 mls/hr IV .Q12H NENA Rx#:[id number] MAGNESIUM SULFATE / D5W 1 gm In 100 / 100 100 ml @ 100 mls/hr IV ONE ONE Rx#:[id number] K RIDER / WTR 20 meq In 100 ml 100 / 100 @ 50 mls/hr IV ONE ONE Rx#: [id number] Oral 320 / 920 320 / 320 Output: Urine Amount (Catheter) 200 / 2250 750 / 2250 Weber/Indwelling 200 / 2250 750 / 2250 Drain Output 190 / 310 120 / 310 Abdomen BELA 190 / 310 120 / 310 Medications Administered Current Inpatient Medications Acetaminophen (Tylenol) 1,000 mg PO Q8 NENA Stop: 08/20/19 11:59 Last Admin: 07/22/19 05:24 Dose: 1,000 mg Documented by: Escitalopram Oxalate (Lexapro Tab) 10 mg PO QAM NENA Stop: 08/12/19 08:59 Last Admin: 07/22/19 08:08 Dose: 10 mg Documented by: Glucagon (Glucagen) 1 mg SQ UD PRN; Protocol PRN Reason: Hypoglycemia Protocol Stop: 08/11/19 12:45 Glucose (Dex4 Glucose) 4 - 8 tabs PO UD PRN; Protocol PRN Reason: Hypoglycemia Protocol Stop: 08/11/19 12:45 Glucose (Glucose 40%) 15 - 30 gm PO UD PRN; Protocol PRN Reason: Hypoglycemia Protocol Stop: 08/11/19 12:45 Heparin Sodium (Porcine) (Heparin Sodium (Porcine)) 5,000 units SQ Q12 NENA Stop: 08/21/19 20:59 Heparin Sodium (Porcine) (Heparin Sodium (Porcine)) 5,000 units SQ NOW STA Stop: 07/22/19 11:12 Dextrose (D10w) 1,000 mls @ 0 mls/hr IV .Q0M PRN PRN Reason: hypo if tpn dc Stop: 08/18/19 15:59 Last Admin: 07/21/19 14:25 Dose: 30 mls/hr Documented by: Amiodarone HCl/Dextrose (Nexterone / D5w) 360 mg in 200 mls @ 16.667 mls/hr IV .Q12H NENA Stop: 08/20/19 17:44 Last Admin: 07/22/19 06:53 Dose: 0.5 mg/min, 16.7 mls/hr Documented by: Nutrition (Parenteral) 1,476. (41 ml/ TPN BAG) 1,476.41 mls @ 61.5 mls/hr IV .Q24H [facility]; Protocol Stop: 07/22/19 15:59 Last Admin: 07/21/19 16:41 Dose: 61.5 mls/hr Documented by: Insulin Aspart (Novolog Flexpen) 0 units SC ACHS [facility]; Protocol Stop: 08/20/19 11:59 Last Admin: 07/22/19 08:12 Dose: 3 units Documented by: Insulin Glargine (Lantus Solostar Pen) 0 units SC BID@0800,2000 [facility]; Protocol Stop: 08/19/19 19:59 Last Admin: 07/22/19 08:10 Dose: 11 units Documented by: Latanoprost (Xalatan Oph) 1 drops OP PM [facility] Stop: 08/11/19 20:59 Last Admin: 07/21/19 20:37 Dose: 1 drops Documented by: Metoprolol Tartrate (Lopressor) 5 mg IV Q5M PRN PRN Reason: Tachycardia Stop: 08/19/19 07:15 Last Admin: 07/22/19 08:17 Dose: 5 mg Documented by: Metoprolol Tartrate (Lopressor) 50 mg PO Q6 [facility] Stop: 08/21/19 11:59 Miscellaneous Information (Pharmacy Tpn/Ppn Consult Active) 1 ea N/A UD PRN PRN Reason: Consult Stop: 08/18/19 09:47 Miscellaneous Information (Consult Glycemic Management Pharmacy) 1 ea N/A UD PRN PRN Reason: Consult Stop: 08/19/19 03:42 Morphine Sulfate (Morphine Sulfate) 4 mg IV Q1H PRN PRN Reason: Pain Stop: 08/01/19 18:36 Last Admin: 07/21/19 20:30 Dose: 4 mg Documented by: Nystatin (Mycostatin) 5 ml PO QID [facility] Stop: 07/28/19 20:59 Last Admin: 07/22/19 08:08 Dose: 5 ml Documented by: Ondansetron HCl (Zofran) 4 mg IV Q6H PRN PRN Reason: nausea Stop: 08/11/19 12:45 Last Admin: 07/22/19 08:00 Dose: 4 mg Documented by: Phenol (Chloraseptic 1.4% [place]) 1 sprays MT PRN PRN PRN Reason: Sore Throat Stop: 08/11/19 15:31 Last Admin: 07/12/19 21:34 Dose: 1 sprays Documented by: Senna/Docusate Sodium (Senokot S) 1 tab PO BID NENA Stop: 08/20/19 10:59 Last Admin: 07/22/19 08:17 Dose: 1 tab Documented by:
--- NOTE | 2019-07-22 11:59 | Pharmacy Report ---
Pharmacy Glycemic Short Note 2 - Date of Service July 22, 2019 - Glycemic Short BSG Results (Last 24 hours): 07/21/19 07/21/19 07/21/19 11:41 15:57 20:11 Glucose 190 H POC Glucose 213 H 193 H 07/22/19 07/22/19 07/22/19 02:36 04:27 07:31 Glucose 146 H POC Glucose 159 H 198 H 07/22/19 11:25 Glucose POC Glucose 240 H OUTPATIENT ANTIDIABETIC REGIMEN: * Linagliptin 5mg PO daily * A1c = 6.9% 05/2019 ASSESSMENT: 07/23 * BSGs have been erratic over the last 24 hrs despite changes made to insulin regimen yesterday * Over the last 24 hrs 84 units of insulin given vs 34 units given the previous day with little to no improvement in glycemic control, likely a consequence of dextrose increase in TPN despite proactive insulin increase * TPN to continue today per surgery, IJ to remain in place for TPN delivery. Pt reported to be tolerating clears, no NV, + flatus but no BM * Will not increase dextrose content of TPN, will increase insulin in TPN. Will also increase Novolog CF and CR doses 07/22 * Type 2 diabetic admitted for SBO, now s/p resection * She is currently receiving TPN for prolonged NPO status, however today her NGT was removed and she was ordered clear liq diet * Pt experiencing A fib w/ RVR, not responsive to Lopressor IV and now initiated on Amiodarone gtt (provides continuous dextrose as carrier) * BSGs running higher today vs yesterday despite increased quantity of insulin in current TPN bag; will continue to up-titrate insulin dose in TPN. Current bag of TPN contains 100gm dextrose and 20 units insulin. 6 units correctional insulin have also been administered since this bag of TPN hung. PLAN FOR INPATIENT GLYCEMIC CONTROL: * Hold outpatient oral diabetes medications (linagliptin) * Increase insulin in TPN to 60 units (200grams dextrose in bag); 20% increase in dose * Basal insulin (no change as pt may be at risk for hypoglycemia when cont IV dextrose provision ends) * Lantus SQ BID per scale: * 0 units if BSG less than 110 * 6 units if BSG 110-180 * 11 units if BSG above 180 * Bolus insulin (dose increase) * NovoLog per scale ACHS and at 0200 * Goal Range: Low 110 mg/dL - High 140 mg/dL * Correction Factor: 20 mg/dL/unit * Nutritional / Prandial insulin per carb ratio of 1 unit per 8 grams CHO consumed PLAN FOR DISCHARGE: * to be determined
[2019-07-22] MEDS: METOPROLOL TARTRATE 50 MG TAB PO SCH ×3 (12:21→23:36)
[2019-07-22] MEDS: CENTRAL PN IV SCH ×2 (16:23→16:29)
[2019-07-22] MEDS: TPN IV SCH ×2 (16:23→16:29)
[2019-07-22] MEDS ORDERED: dilTIAZem HCl 5 MG/ML 5 ML VIAL IV STA (16:39)
[2019-07-22] MEDS ORDERED: SODIUM CHLORIDE 0.9% 1000ML 500 ML IV ONE (16:46)
--- NOTE | 2019-07-22 19:18 | Hospitalist Progress Note ---
Date of Service July 22, 2019 Assessment & Plan (1) Small bowel obstruction: Small bowel obstruction Lesion of colon: -Status post colonoscopy, showing stricture of the colonic splenic flexure, biopsy performed, pathology pending -s/p Colon resection 07/19/2019 Acute Blood Loss Anemia -patient has received blood transfusion on this admission -monitor hemoglobin Atrial Fibrillation with Rapid Ventricular Response -patient has been on amiodarone and metoprolol for the Afib in RVR which d eveloped on 07/21/2019 07/22/2019 Patient seen and examined at bedside with no acute distress in AM. denied palpitations. no chest pain. no headache. no dizziness. no vomiting. ICU physician requested that hospitalist transfer from ICU level o care to telemetry service. Patient then needed further cardiac rate control medications while in the ICU awaiting for telemetry bed. Hospitalist have returned in evening to see the patient. Heart rate currently 100 beats per minute and with irregularly rhythm. Patient currently sleeping HTN (hypertension): -Usually on amlodipine and atenolol at home; currently off these blood pressure medications during management of the atrial fibrillation with RVR Infiltrate of right lung present on chest x-ray -unlikely any plans by pulmonary service to perform bronchoscopy until heart rates are more stabilized Rib lesion: -Could have secondary to metastatic lesion with history of CA breast in the past and suspicion for colon and/or urinary bladder -Remote history of breast cancer, previously followed with Dr. Fong Bilateral hydronephrosis Lesion of bladder: -CT notes 1 cm bladder lesion and possible transverse colon and rib lesions, bilateral hydronephrosis; possible carcinomatosis as etiology for SBO -To have outpatient follow-up and probable cystoscopy as an outpatient -Appointment with Dr. Olivia as an outpatient on 29 July for further evalua tion of hydronephrosis and suspected bladder lesion Acute renal failure on Chronic Kidney Disease stage 3 -renal function has returned to baseline Nutrition -liquid diet and on Total Parental Nutrition started 07/20/2019 DM type 2 (diabetes mellitus, type 2): -Hgb A1c 6.9 05/2019 --Hold oral agents and utilize NovoLog per protocol while hospitalized Temporal arteritis: -Receives Actemra injections every 14 days as outpatient Dyslipidemia: -Continue statin DVT prophylaxis: SCDs Subjective Patient seen and examined at bedside with no acute distress in AM. denied palpitations. no chest pain. no headache. no dizziness. no vomiting. ICU physician requested that hospitalist transfer from ICU level o care to telemetry service. Patient then needed further cardiac rate control medications while in the ICU awaiting for telemetry bed. Hospitalist have returned in evening to see the patient. Heart rate currently 100 beats per minute and with irregularly rhythm. Patient currently sleeping Review of Systems Review of Systems: All systems reviewed & are unremarkable except as noted in HPI & below Physical Exam Constitutional: WD/WN, vitals as above Neck: normal visual inspection Respiratory: normal respiratory effort, lungs clear to auscultation Cardiovascular: Rate/Rhythm: regular rate and + irregularly irregular Gastrointestinal (Abdomen): Inspection/Auscultation: abdomen normal to inspection and normal bowel sounds Neurologic: sleeping Psychiatric: sleeping Genitourinary: felix Results & Data Vital Signs (Past 12 Hours) Vital Signs Temp Pulse Pulse Resp BP Pulse Ox 07/22/19 14:51 128 H 160/68 H 07/22/19 12:30 37.1 C 112 H 15 164/80 H 93 07/22/19 11:30 94 H 16 99 07/22/19 09:34 92 H 21 131/67 100 07/22/19 08:17 121 H 125/65 07/22/19 08:03 36.4 C L 102 H 14 125/65 100
[2019-07-22] MEDS: HEPARIN SOD 5,000 UNIT/0.5 ML VIAL SQ SCH (21:45)
[2019-07-22] MEDS: LATANOPROST 0.005% OP SOLN 2.5 ML BTL OP SCH (21:46)
[2019-07-22] MEDS ORDERED: PROMETHAZINE HCL 12.5 MG in SODIUM CHLORIDE 0.9% 50 ML IV PRN (23:13)
[2019-07-23] MEDS: INSULIN ASPART 100 UNITS/ML 3 ML PEN SC SCH ×7 (00:05→23:41)
[2019-07-23 05:05] LABS: BUN Creatinine Ratio 31.5 (10-20); Calcium 8.5 mg/dl (8.5-10.1); Creatinine Clr Calc Pharmacy 41.2 ml/min; Est GFR (African American) 62.6; Potassium 4.1 mmol/L (3.5-5.1)
[2019-07-23 05:06] LABS: Phosphorus 3.5 mg/dl (2.5-4.9)
[2019-07-23] MEDS ORDERED: OXYMETAZOLINE 0.05% 30 ML BTL NAE SCH (06:00)
[2019-07-23] MEDS: METOPROLOL TARTRATE 50 MG TAB PO SCH ×3 (06:14→20:06)
[2019-07-23] MEDS: ACETAMINOPHEN 500 MG TAB PO SCH ×3 (06:14→21:24)
--- NOTE | 2019-07-23 07:13 | XRay Report ---
XR chest 1V portable CLINICAL HISTORY: atelectasis/ mucous plug COMPARISON STUDY: 07/22/2019 FINDINGS: The cardiac and mediastinal contours remain stable. There is a right internal jugular centr al venous catheter. There is persistent right upper lobe atelectasis. Linear parenchymal opacities th e left lung base likely represents subsegmental atelectatic change. There is no failure.[ IMPRESSION: Right upper lobe opacity, consistent with persistent right upper lobe atelectasis/volume loss ACT 112: Negative or not required by law. Electronically signed by: Shun Blanchard M.D. 07/23/2019 7:12 AM
[2019-07-23] MEDS: AMIODARONE / D5W 360 MG/200 ML BAG IV SCH (07:39)
[2019-07-23] MEDS: NYSTATIN SUSP 500,000 U/5 ML UDC PO SCH ×4 (07:42→20:11)
[2019-07-23] MEDS: HEPARIN SOD 5,000 UNIT/0.5 ML VIAL SQ SCH ×2 (07:43→20:10)
[2019-07-23] MEDS: ESCITALOPRAM OXALATE 10 MG TAB PO SCH (07:43)
--- NOTE | 2019-07-23 07:43 | Surgery Progress Note ---
Date of Service July 23, 2019 Assessment & Plan (1) Colon stricture: POD 5 Patient is resting comfortably no abdominal discomfort has had multiple bowel movements Abdominal exam is benign no pedal edema Final path report noted metastatic breast cancer with abdominal carcinomatosis this was discussed with the patient Plan is to increase diet DC hyper L transfer to telemetry decision to be made by cardiology and auto rebuilder POD 4 Patient tolerated diet liquids no bowel movement but passing flatus go slow with increasing diet Continue with cardiac monitoring Responded well to gentle diuresis yesterday we will hold off diuresing her today We will check a chest x-ray again today for right upper lobe consolidation If the chest x-ray is not improved today we will get pulmonary consult We will start her on heparin 5000 units subcu every 12 hours please do not give this patient Lovenox POD 3 resection transverse colon/splenic flexure seen with Dr. Andino d/c SAY, start clears jerry drain removed will check amylase on Wayne drainage gently diurese, 10 mg lasix H&H stable Subjective Patient comfortable. Although she is still in atrial fibrillation, her ventricular rates are improved, for the most part in the 90 to 100 bpm range down from 120-132 yesterday. Denies subjective cardiac complaint. Pulse oximetry much improved. Results & Data Vital Signs (Past 12 Hours) Vital Signs Temp Pulse Pulse Resp BP Pulse Ox 07/23/19 03:00 96 H 22 97 07/23/19 02:49 111 H 19 159/74 H 94 07/23/19 02:00 110 H 20 97 07/23/19 01:49 118 H 19 126/95 99 07/23/19 01:00 120 H 20 91 07/23/19 00:49 132 H 21 141/79 H 99 07/23/19 00:00 139 H 15 99 07/22/19 23:49 105 H 16 160/110 H 99 07/22/19 23:00 36.8 C 113 H 21 94 07/22/19 22:49 104 H 17 147/71 H 99 07/22/19 22:00 106 H 19 99 07/22/19 21:49 107 H 21 155/67 H 99 07/22/19 21:00 115 H 14 98 07/22/19 20:55 120 H 18 95 07/22/19 20:49 113 H 20 156/88 H 100 07/22/19 20:00 37 C 97 H 15 99 PG Care Time/CCT Total # of Minutes Spent Total Time Spent with Patient: Total time spent is greater than 50% in coordination of care (as documented) at patient's floor/unit and/or counseling patient:
[2019-07-23] MEDS: DOCUSATE SODIUM/SENNA 50/8.6MG TAB PO SCH ×2 (07:44→19:58)
[2019-07-23] MEDS: INSULIN GLARGINE SOLOSTAR 100 UNITS/ML 3 ML PEN SC SCH ×2 (10:42→20:07)
--- NOTE | 2019-07-23 11:19 | Pre Anesthesia Assessment ---
Date of Service July 23, 2019 Pre Sedation Assessment Vital Signs Temp Pulse Pulse Resp BP Pulse Ox 07/23/19 10:48 18 96 07/23/19 03:00 96 H 22 97 07/23/19 02:49 111 H 19 159/74 H 94 07/23/19 02:00 110 H 20 97 07/23/19 01:49 118 H 19 126/95 99 07/23/19 01:00 120 H 20 91 07/23/19 00:49 132 H 21 141/79 H 99 07/23/19 00:00 139 H 15 99 07/22/19 23:49 105 H 16 160/110 H 99 07/22/19 23:00 98.2 F 113 H 21 94 07/22/19 22:49 104 H 17 147/71 H 99 07/22/19 22:00 106 H 19 99 07/22/19 21:49 107 H 21 155/67 H 99 07/22/19 21:00 115 H 14 98 07/22/19 20:55 120 H 18 95 07/22/19 20:49 113 H 20 156/88 H 100 07/22/19 20:00 98.6 F 97 H 15 99 07/22/19 14:51 128 H 160/68 H 07/22/19 12:30 98.8 F 112 H 15 164/80 H 93 07/22/19 11:30 94 H 16 99 Pre-Sedation Airway Assessment Smoking Status: Never smoker Thyromental Distance: > or= 3.5 Finger Breadths Mallampati Class: II Notes The planned sedation has been discussed with the patient. Informed Consent was obtained. I have identified the patient, determined the appropriateness of sedation and have assessed the patient immediately prior to the procedure. All medicine(s) and interventions are by my order.
--- NOTE | 2019-07-23 11:19 | History & Physical Bridge Note ---
Date of Service July 23, 2019 History & Physical Bridge Note I have examined the patient, reviewed the History & Physical and in the interval since the performance of the History & Physical I have noted the following changes of clinical significance: no changes noted
--- NOTE | 2019-07-23 11:24 | Pulmonology Progress Note ---
Date of Service July 23, 2019 Assessment & Plan (1) Acute hypoxemic respiratory failure: Patient has a right upper lobe collapse possibly due to mucous plugging. We will perform bronchoscopy today to evaluate the right upper lobe and see if we can open up the lobe. I did discuss the risks of the procedure with her. She is currently a DNR and DNI. We will have to reverse her CODE STATUS temporarily for the procedure and she is aware of this. Unfortunately, does appear that the biopsy results from her omentum have come back positive for metastatic carcinoma of the breast. This is likely in the source of her bowel obstruction. Recommend obtaining a palliative care consult. (2) Infiltrate of right lung present on chest x-ray: (3) Metastatic breast cancer: Subjective Patient is doing well today. She is saturating well on 2 L. She is lying in bed. She has no complaints. She denies any chest pain or nausea. No fevers. Physical Exam Constitutional: WD/WN, vitals as above Respiratory: normal respiratory effort, lungs clear to auscultation Cardiovascular: RRR, no murmur, no edema Gastrointestinal (Abdomen): Incisions intact. Mildly tender to palpation. Neurologic: CN's II-XI intact bilaterally Results & Data Vital Signs (Past 12 Hours) Vital Signs Pulse Resp BP Pulse Ox 07/23/19 10:48 18 96 07/23/19 03:00 96 H 22 97 07/23/19 02:49 111 H 19 159/74 H 94 07/23/19 02:00 110 H 20 97 07/23/19 01:49 118 H 19 126/95 99 07/23/19 01:00 120 H 20 91 07/23/19 00:49 132 H 21 141/79 H 99 07/23/19 00:00 139 H 15 99 07/22/19 23:49 105 H 16 160/110 H 99 PG Care Time/CCT Total # of Minutes Spent Total Time Spent with Patient: Total time spent is greater than 50% in coordination of care (as documented) at patient's floor/unit and/or counseling patient:
--- NOTE | 2019-07-23 12:40 | Cardiology Progress Note ---
Date of Service July 23, 2019 Assessment & Plan (1) Paroxysmal atrial fibrillation: (2) Metastatic breast cancer: Colon specimen pathology suggests metastatic breast carcinoma. AF-rates improved. Stop amiodarone infusion. Continue oral metoprolol for rate control. Received 500 ml of IV yesterday and RV appears underfilled on echo and she was tachycardic. 3.8 L of urine outpt yesterday ,without diuretics. Continue SQ heparn for DVT prophylaxis. Hgb 8, very frail , hold off on anticoagulation for stroke prevention for now. Continue metoprolol for HTN. Subjective Denies chest pain or shortness of breath. Frequent green loose stools reported. AF noted on monitor, rates much better controlled. Review of Systems Review of Systems: All systems reviewed & are unremarkable except as noted in HPI & below Physical Exam Physical Exam: Temp Pulse Resp BP Pulse Ox 36.8 C 96 H 18 159/74 H 96 07/22/19 23:00 07/23/19 03:00 07/23/19 10:48 07/23/19 02:49 07/23/19 10:48 Constitutional: + ill appearing Respiratory: normal respiratory effort, lungs clear to auscultation Cardiovascular: Rate/Rhythm: + irregularly irregular Heart Sounds: no murmur Vessels: no JVD Extremities: no edema Gastrointestinal (Abdomen): normal bowel sounds, soft, nontender, no hepatosplenomegaly Neurologic: PERRL, EOMI, accommodation nl, no face palsy, no dysarthria Results & Data Vital Signs (Past 12 Hours) Vital Signs Pulse Resp BP Pulse Ox 07/23/19 10:48 18 96 07/23/19 03:00 96 H 22 97 07/23/19 02:49 111 H 19 159/74 H 94 07/23/19 02:00 110 H 20 97 07/23/19 01:49 118 H 19 126/95 99 07/23/19 01:00 120 H 20 91 07/23/19 00:49 132 H 21 141/79 H 99
[2019-07-23] MEDS ORDERED: OXYMETAZOLINE 0.05% 30 ML BTL ONE (13:22)
[2019-07-23] MEDS ORDERED: LIDOCAINE 4% INH SOLN 4 ML BTL NAE ONE (13:22)
[2019-07-23] MEDS ORDERED: LIDOCAINE HCL 2% (LOCAL) INJ 50 ML VIAL INFIL STA (13:55)
[2019-07-23] MEDS ORDERED: MIDAZOLAM HCL 1 MG/ML 2ML VIAL IV STA (13:55)
[2019-07-23] MEDS ORDERED: fentaNYL citrate 100 MCG/2 ML VIAL IV ONE (13:55)
[2019-07-23] MEDS ORDERED: LIDOCAINE HCL VISCOUS SOLN 2% 15 ML UDC TOP ONE (13:55)
--- NOTE | 2019-07-23 13:58 | Post Anesthesia Assessment ---
Date of Service July 23, 2019 Post Sedation Assessment Vital Signs Temp Pulse Pulse Resp BP BP Pulse Ox 07/23/19 13:55 84 16 133/59 L 97 07/23/19 13:50 72 14 134/76 97 07/23/19 13:45 85 15 163/79 H 97 07/23/19 13:40 91 H 20 132/62 100 07/23/19 13:35 89 19 161/76 H 100 07/23/19 13:30 88 17 168/68 H 100 07/23/19 13:00 88 16 100 07/23/19 12:49 86 17 140/66 100 07/23/19 12:00 98.2 F 124 H 26 H 98 07/23/19 11:50 86 18 119/63 98 07/23/19 11:00 75 19 100 07/23/19 10:49 75 10 L 151/75 H 100 07/23/19 10:48 18 96 07/23/19 10:00 91 H 14 98 07/23/19 09:50 91 H 17 138/61 99 07/23/19 09:00 90 22 98 07/23/19 08:49 89 26 H 169/61 H 100 07/23/19 08:01 98.4 F 102 H 13 07/23/19 07:51 97 H 23 148/96 H 98 07/23/19 07:00 74 20 99 07/23/19 03:00 96 H 22 97 07/23/19 02:49 111 H 19 159/74 H 94 07/23/19 02:00 110 H 20 97 07/23/19 01:49 118 H 19 126/95 99 07/23/19 01:00 120 H 20 91 07/23/19 00:49 132 H 21 141/79 H 99 07/23/19 00:00 139 H 15 99 07/22/19 23:49 105 H 16 160/110 H 99 07/22/19 23:00 98.2 F 113 H 21 94 07/22/19 22:49 104 H 17 147/71 H 99 07/22/19 22:00 106 H 19 99 07/22/19 21:49 107 H 21 155/67 H 99 07/22/19 21:00 115 H 14 98 07/22/19 20:55 120 H 18 95 07/22/19 20:49 113 H 20 156/88 H 100 07/22/19 20:00 98.6 F 97 H 15 99 07/22/19 14:51 128 H 160/68 H Recovery Score Activity: Moves 4 extremities Respiration: Deep Breath/Cough Circulation: +/-20-49% PreAnes Value Consciousness: Arouseable (by name) Oxygen Saturation: O2 needed for >90% Post Anesthesia Score: 7 Discharge Sedation Level of Care: Fast Track Phase II Post Sedation Plan On clinical assessment, the patient appears to have tolerated the sedation without complications. Patient is recovering as anticipated. Patient will continue to be monitored by nursing and may be discharged when sedation discharge criteria are met per below protocol. Upon Completions of procedure up to 15 minutes continue every 5 minute vital signs and the P.A.R. score; then discharge to a Phase I or Fast Track to Phase II per the following guidelines: * Discharge Patient to appropriate Phase II area if PAR is 8 or greater or return to pre- procedure baseline. The post - procedure orders will be as directed. * If PAR score is less than 8 or not return to pre-procedure baseline then patient will follow Phase I monitoring till PAR is reached for Phase II. The Phase I may be done in procedure room or may call to secure a Phase I area. * If naloxone or flumazenil are used for reversal, hold in Phase I for continued monitoring from when last reversal dose was given for a minimum of 60 minutes or longer pending the nurse and/or physician discretion of patient condition before discharge to Phase II. Please call the Sedation Physician to re-evaluate and complete post-note for discharge to Phase II area. Do NOT discharge from procedure sedation or Phase 1 until post- sedation evaluation note is complete by procedure /sedation MD Sedation Discharge Instructions to be given to the patient at discharge to home.
--- NOTE | 2019-07-23 13:59 | Procedure Note ---
Procedure Note Date of Service July 23, 2019 Note 3 mg of Versed were given and 25 mcg of fentanyl were given. Procedure lasted from 1:36 PM to 1:55 PM. PREOPERATIVE DIAGNOSIS: Right upper lobe collapse POSTOPERATIVE DIAGNOSIS: Right upper lobe collapse with sessile lesion near the entry of the right upper lobe PROCEDURE PERFORMED: Flexible fiberoptic bronchoscopy with biopsy of the right upper lobe COMPLICATIONS: None. INDICATION: Evaluate right upper lobe collapse PROCEDURE: After obtaining an informed consent, the patient was brought to the Bronchoscopy Suite. The patient had appropriate oxygen, blood pressure, heart rate, and respiratory rate monitoring applied and monitored continuously throughout the procedure. Supplemental oxygen via nasal cannula as per nursing records was applied to the nasopharynx with adequate saturations achieved. Topical anesthesia with nebulized 1% lidocaine was achieved. Subsequent to this, the patient was premedicated with 3 mg of midazolam and 25 Mcg of fentanyl. The oropharynx and larynx were well visualized and showed mild erythema. There was normal vocal cord motion without masses or lesions. Additional topical anesthesia with 1% lidocaine was applied to the trachea and jose. The trachea appeared normal with some excessive dynamic airway collapse.The bronchoscope was then advanced through the jose, which was sharp. The scope was then advanced into the right main stem and each segment, subsegement in the right upper lobe, right middle lobe and right lower lobe was visualized. There was minimal amounts of minimal secretions noted. There was a sessile appearing lesion at the orifice opening of the right upper lobe at approximately the 5 o'clock position that I biopsied twice. It did appear that when the patient was exhaling that the right upper lobe orifice was closing off which was made more evident with this lesion in the way. Otherwise the remaining airways on both right and left appeared normal. There are very minimal secretions noted. Right upper lobe lesion was sent for biopsy. Recommendations: Await biopsy results. Await chest x-ray results. Coding CPT Codes Pulmonary/Thoracic - Pulmonary and Thoracic: 06049 Bronchoscopy w bronchial or endobronchial bx ([id number]) Sedation/Anesthesia - Sedation/Anesthesia: 55860 Mod Sedation by the same physician;Init15 Min Child Age 5 & Up ([id number])
--- NOTE | 2019-07-23 14:21 | XRay Report ---
XR chest 1V portable CLINICAL HISTORY: Eval RUL post bronch COMPARISON STUDY: 07/23/2019 FINDINGS: The cardiac and mediastinal contours remain stable. There is a right internal jugular centr al venous catheter. There is persistent right upper lobe volume loss/consolidation. There is no pneum othorax status post bronchoscopy. There is improving left basilar atelectatic change.[ IMPRESSION: No evidence of pneumothorax status post bronchoscopy. ACT 112: Negative or not required by law. Electronically signed by: Shun Blanchard M.D. 07/23/2019 2:19 PM
--- NOTE | 2019-07-23 14:50 | Pharmacy Report ---
Pharmacy Glycemic Short Note 2 - Date of Service July 23, 2019 - Glycemic Short BSG Results (Last 24 hours): 07/22/19 07/22/19 07/23/19 16:05 20:55 00:01 Glucose POC Glucose 275 H 226 H 203 H 07/23/19 07/23/19 07/23/19 04:04 04:26 07:13 Glucose 139 H POC Glucose 143 H 174 H 07/23/19 11:01 Glucose POC Glucose 164 H OUTPATIENT ANTIDIABETIC REGIMEN: * Linagliptin 5mg PO daily * A1c = 6.9% 05/2019 ASSESSMENT: 07/24 * BSG's elevated last evening, but better controlled this AM * Pt is NPO today for bronch but will have diet advanced after procedure. * Plan is to discontinue the TPN after today's bag finishes infusing * Pt requires extremely high insulin doses when IV dextrose infused 24hrs per day (>1.6unit/kg/day) , now that TPN is being discontinued will rely on weight based basal/bolus regimen and "moderate-severe" stress level for next 24 hrs 07/23 * BSGs have been erratic over the last 24 hrs despite changes made to insulin regimen yesterday * Over the last 24 hrs 84 units of insulin given vs 34 units given the previous day with little to no improvement in glycemic control, likely a consequence of dextrose increase in TPN despite proactive insulin increase * TPN to continue today per surgery, IJ to remain in place for TPN delivery. Pt reported to be tolerating clears, no NV, + flatus but no BM * Will not increase dextrose content of TPN, will increase insulin in TPN. Will also increase Novolog CF and CR doses 07/22 * Type 2 diabetic admitted for SBO, now s/p resection * She is currently receiving TPN for prolonged NPO status, however today her NGT was removed and she was ordered clear liq diet * Pt experiencing A fib w/ RVR, not responsive to Lopressor IV and now initiated on Amiodarone gtt (provides continuous dextrose as carrier) * BSGs running higher today vs yesterday despite increased quantity of insulin in current TPN bag; will continue to up-titrate insulin dose in TPN. Current bag of TPN contains 100gm dextrose and 20 units insulin. 6 units correctional insulin have also been administered since this bag of TPN hung. PLAN FOR INPATIENT GLYCEMIC CONTROL: * Hold outpatient oral diabetes medications (linagliptin) * Basal insulin (no change as pt may be at risk for hypoglycemia when cont IV dextrose provision ends) * Lantus SQ BID per scale: * 0 units if BSG less than 110 * 6 units if BSG 110-140 * 11 units if BSG above 140 * Bolus insulin (dose increase) * NovoLog per scale ACHS and at 0200 * Goal Range: Low 110 mg/dL - High 140 mg/dL * Correction Factor: 20 mg/dL/unit * Nutritional / Prandial insulin per carb ratio of 1 unit per 8 grams CHO consumed PLAN FOR DISCHARGE: * to be determined
--- NOTE | 2019-07-23 18:00 | CT Scan Report ---
CT chest wo con CT DOSE: 475.70 mGy.cm HISTORY: Dyspnea hilar abnormality, rul collapse TECHNIQUE: Multiaxial CT images of the chest were performed without contrast. A dose lowering techni que was utilized adhering to the principles of ALARA. COMPARISON: None. FINDINGS: Consolidative process involving the right upper lobe is medial aspect with associated conso lidative change. There is a right pleural effusion. There is trace pleural fluid left lung base. The left lung is grossly clear. Several nonspecific mediastinal and/or hilar nodes measuring up to 1.5 cm. Bulky adenopathy is not ap preciated. There is irregularity of several bronchi immediately distal to the right mainstem bronchus. Endobronc hial lesions or not entirely excluded. Limited evaluation of the upper abdomen is unremarkable. There is right pleural effusion. IMPRESSION: 1. Partial consolidative changes/atelectatic change right upper lobe 2. Moderate luminal irregularity of several right upper lobe bronchi. 3. Right pleural effusion with moderate atelectatic change superior segment right lower lobe. 4. Minimal atelectatic changes left lung base associated with slight pleural thickening. 5. An obstructive process centrally must be considered. ACT 112: Negative or not required by law. The above report was generated using voice recognition software. It may contain grammatical, syntax or spelling errors. Electronically signed by: Steven Douglas M.D. 07/23/2019 5:58 PM
--- NOTE | 2019-07-23 18:21 | Hospitalist Progress Note ---
Date of Service July 23, 2019 Assessment & Plan (1) Small bowel obstruction: Small bowel obstruction Lesion of colon: -Status post colonoscopy, showing stricture of the colonic splenic flexure, biopsy performed -s/p Colon resection 07/19/2019 Metastatic Breast Cancer Rib lesions on imaging, right lung infiltrate -History of Breast Cancer treated in the past -biopsy results of colon reveals metastatic breast cancer -patient is s/p bronchoscopy on 07/23/2019 of right lung infiltrate and while bronchoscopy pathology specimens have been sent, post bronchoscopy CT scan may suggest obstructing mass such as lung cancer -patient reports that her past breast cancer was treated by oncologists at [facility]; will consult [facility] oncology team. given multiple areas of involvement of cancer, also will request palliative care consult Bilateral hydronephrosis Lesion of bladder: -CT notes 1 cm bladder lesion and possible transverse colon and rib lesions, bilateral hydronephrosis; possible carcinomatosis as etiology for SBO -urine is negative for urothelial carcinoma -To have outpatient follow-up and probable cystoscopy as an outpatient -Appointment with Dr. Olivia as an outpatient on July 29, 2019 for further evaluation of hydronephrosis and suspected bladder lesion Acute renal failure on Chronic Kidney Disease stage 3 -renal function has returned to baseline Acute Blood Loss Anemia -patient has received blood transfusion on this admission -monitor hemoglobin Atrial Fibrillation with Rapid Ventricular Response -patient had been on amiodarone and metoprolol for the Afib in RVR which developed on 07/21/2019 -as of 07/23/2019 patient's heart rates appeared to be controlled by metoprolol HTN (hypertension): -Usually on amlodipine and atenolol at home; currently off these blood pressure medications during management of the atrial fibrillation with RVR -monitor blood pressure Nutrition -was on Total Parental Nutrition started 07/20/2019 -off Total Parental Nutrition as of 07/23/2009 DM type 2 (diabetes mellitus, type 2): -Hgb A1c 6.9 05/2019 -Hold oral agents and utilize insulin per protocol while hospitalized Temporal arteritis: -Receives Actemra injections every 14 days as outpatient Dyslipidemia: -Continue statin DVT prophylaxis: SCDs Subjective Patient s/p bronchoscopy. currently breathing comfortably. denies chest pain. denies acute abdomen pain. calm and cooperative on exam. answers questions appropriately Review of Systems Review of Systems: All systems reviewed & are unremarkable except as noted in HPI & below Physical Exam Constitutional: WD/WN, vitals as above Eyes: PERRL, conjunctivae normal, anicteric sclerae EOM intact bilaterally ENMT: external ear and nose normal, oropharynx normal Neck: normal visual inspection Respiratory: normal respiratory effort, lungs clear to auscultation Cardiovascular: Rate/Rhythm: regular rate Gastrointestinal (Abdomen): Inspection/Auscultation: normal bowel sounds Musculoskeletal: Head/Neck/Chest: normocephalic and head atraumatic Neurologic: PERRL, EOMI, accommodation nl, no face palsy, no dysarthria CN's II-XI intact bilaterally Psychiatric: A+Ox3, euthymic affect Results & Data Vital Signs (Past 12 Hours) Vital Signs Temp Pulse Resp BP BP Pulse Ox 07/23/19 16:00 70 20 100 07/23/19 15:30 67 22 100 07/23/19 15:15 70 17 98 07/23/19 15:00 36.7 C 70 16 99 07/23/19 14:49 69 17 115/50 L 98 07/23/19 14:45 68 15 99 07/23/19 14:16 67 18 115/54 L 99 07/23/19 14:15 68 20 120/56 L 99 07/23/19 14:10 67 18 125/63 96 07/23/19 14:05 71 20 131/53 L 96 07/23/19 14:00 69 21 129/62 96 07/23/19 13:55 84 16 133/59 L 97 07/23/19 13:50 72 14 134/76 97 07/23/19 13:45 85 15 163/79 H 97 07/23/19 13:40 91 H 20 132/62 100 07/23/19 13:35 89 19 161/76 H 100 07/23/19 13:30 88 17 168/68 H 100 07/23/19 13:00 88 16 100 07/23/19 12:49 86 17 140/66 100 07/23/19 12:00 36.8 C 124 H 26 H 98 07/23/19 11:50 86 18 119/63 98 07/23/19 11:00 75 19 100 07/23/19 10:49 75 10 L 151/75 H 100 07/23/19 10:48 18 96 07/23/19 10:00 91 H 14 98 07/23/19 09:50 91 H 17 138/61 99 07/23/19 09:00 90 22 98 07/23/19 08:49 89 26 H 169/61 H 100 07/23/19 08:01 36.9 C 102 H 13 07/23/19 07:51 97 H 23 148/96 H 98 07/23/19 07:00 74 20 99
[2019-07-23] MEDS: LATANOPROST 0.005% OP SOLN 2.5 ML BTL OP SCH (20:11)
[2019-07-24] MEDS: METOPROLOL TARTRATE 50 MG TAB PO SCH ×4 (01:00→17:56)
[2019-07-24] MEDS: INSULIN ASPART 100 UNITS/ML 3 ML PEN SC SCH ×5 (04:38→21:22)
[2019-07-24 04:59] LABS: Basophils # (auto) 0.03 K/uL (0-0.2); Basophils % (auto) 0.2 %; Eosinophils # (auto) 0.63 K/uL (0-0.5); Eosinophils % (auto) 4.5 %; Hematocrit (blood only) 26.4 % (37-47); Hemoglobin 8.6 g/dL (12.0-16.0); Immature Granulocytes % (auto) 0.7 %; Lymphocytes # (auto) 1.02 K/uL (1.2-3.4); Lymphocytes % (auto) 7.3 %; Mean Corpuscular Hemoglobin 31.7 pg (25-34); Mean Corpuscular Hgb Conc 32.6 g/dL (32-36); Mean Corpuscular Volume 97.4 fL (80-100); Mean Platelet Volume 9.9 fL (7.4-10.4); Monocytes # (auto) 1.89 K/uL (0.11-0.59); Monocytes % (auto) 13.5 %; Neutrophils # (auto) 10.33 K/uL (1.4-6.5); Neutrophils % (auto) 73.8 %; Platelet Count 179 K/uL (130-400); RDW Coefficient of Variation 15.5 % (11.5-14.5); RDW Standard Deviation 50.9 fL (36.4-46.3); Red Blood Count 2.71 M/uL (4.2-5.4)
[2019-07-24 05:28] LABS: Albumin Level 2.2 gm/dl (3.4-5.0); BUN Creatinine Ratio 31.4 (10-20); Calcium 8.4 mg/dl (8.5-10.1); Creatinine Clr Calc Pharmacy 32.9 ml/min; Est GFR (African American) 47.4; Est GFR (Non-African American) 40.9; Magnesium 2.1 mg/dl (1.8-2.4); Potassium 4.2 mmol/L (3.5-5.1)
[2019-07-24 05:49] LABS: Albumin Globulin Ratio 0.7 (0.9-2); Bilirubin,Total 0.6 mg/dl (0.2-1); Phosphorus 4.1 mg/dl (2.5-4.9); Total Protein 5.2 gm/dl (6.4-8.2)
[2019-07-24] MEDS: ACETAMINOPHEN 500 MG TAB PO SCH ×2 (05:56→13:06)
--- NOTE | 2019-07-24 09:16 | Oncology Consultation ---
Date of Consultation July 24, 2019 Assessment & Plan (1) Metastatic breast cancer: Ms. Contreras has metastatic, ER positive breast cancer. This is most likely a metastatic recurrence of her initial cancer from 2009. That cancer was stage IIIC, which made it very high risk for recurrence. It was also a lobular carcinoma, which often have a longer natural history. Thus, it is not unexpected that she had a late recurrence. Her tumor remains ER positive and so she would be a candidate for endocrine therapy. She could use an aromatase inhibitor again, potentially with a CDK inhibitor like palbociclib or abemaciclib. These agents are usually well tolerated and are oral, so she would not have to undergo chemotherapy. She was resistant to the idea of chemo but was open to endocrine therapy. Once she is stable for discharge, we can arrange for her to see Dr. Toribio in the office to discuss treatment. Present on Admission?: Yes (2) Lesion of bladder: She had urine cytology that was negative for high-grade urothelial carcinoma. She should still have follow up for this issue. An appointment was made with Dr. Olivia from Urology for later this month. We should make sure she keeps this appointment. Present on Admission?: Yes (3) Acute hypoxemic respiratory failure: Her CT findings are concerning for disease. However, I spoke with Dr. De León, who performed her bronchoscopy yesterday. He did not see any lesions that were obviously malignant, though biopsies are pending. Her effusion could also be malignant, though it may be reactive to the adjacent atelectasis. A thoracentesis may be beneficial for diagnostics and symptom relief, but the presence of malignant cells would not change her staging or prognosis. Present on Admission?: No History of Present Illness Reason for Consultation: Metastatic hormone positive breast cancer Attending Physician: Shelton Armstrong MD History of Present Illness Ms. Contreras is an 83 year old woman with a history of HTN, CKD, DM, and paroxysmal AFib. She was treated in early 2009 for a right breast cancer. It was a well-differentiated invasive lobular carcinoma that was ER positive, weakly AL positive, and HER2 negative. She had 12 positive lymph nodes and was stage IIIC (pT2 pN3a cM0). She was treated with adjuvant chemotherapy, though the exact reg imen is unclear. She then underwent adjuvant RT and then started Arimidex. She thinks she took a hormone pill for five years, but I only see it documented as an active medication from [id number] based on records. She was last seen by my partner Dr. Toribio in 2017. She had no evidence of disease and so he discharged her to PCP follow up. She presented on 07/12 with nausea, vomiting, and abdominal distention. CT revealed a small bowel obstruction with transition point within the pelvis, along with ascites, mesenteric infiltration and subtle omental nodularity. Also seen were a possible annular lesion within the distal transverse colon and an enhancing lesion in the bladder. Colonoscopy 07/17/19 revealed a stricture at the splenic flexure that was biopsied, revealing metastatic breast cancer that was ER positive and AL/HER2 negative. On 07/21/19, she underwent a transverse colectomy with omental biopsies that confirmed metastatic breast cancer. A CT chest also revealed some possible endobronchial irregularities concerning for disease. She had a bronchoscopy that did not reveal any obvious tumor, though biopsies are pending. She denies any bleeding in her stool. Her abdomen is sore and she has some mild diarrhea, but she denies any pain. She denies any chest pain, pleurisy, shortness of breath, headaches, vision changes, urinary symptoms, or bleeding. Allergies Allergy/AdvReac Type Severity Reaction Status Date / Time Influenza Virus Vaccines Allergy Mild SWELLING Verified 07/12/19 08:28 Home Medications Home Medications Medication Instructions Recorded Confirmed Type Actemra 162 mg IV .Q OTHER WEEK 03/28/18 07/14/19 History alprazolam [Xanax] 0.25 mg PO DAILY PRN 03/28/18 07/12/19 History ascorbic acid (vitamin C) [Vitamin 500 mg PO QAM 03/28/18 07/12/19 History C] atenolol [Tenormin] 50 mg PO BID 03/28/18 07/12/19 History calcium carbonate-vitamin D3 1 tab PO BID 03/28/18 07/12/19 History [Os-Arcadio 500 + D3] escitalopram oxalate [Lexapro] 10 mg PO QAM 03/28/18 07/12/19 History multivitamin 1 tab PO QAM 03/28/18 07/12/19 History rosuvastatin [Crestor] 20 mg PO QAM 03/28/18 07/12/19 History cranberry 400 mg PO QAM 07/07/19 07/12/19 History famotidine [Pepcid] 20 mg PO BID 07/07/19 07/12/19 History linagliptin [Tradjenta] 5 mg PO QAM 07/07/19 07/12/19 History amitriptyline 25 mg PO HS 07/12/19 07/12/19 History amlodipine 5 mg PO DAILY 07/12/19 07/12/19 History esomeprazole magnesium [Nexium] 20 mg PO DAILY 07/12/19 07/12/19 History latanoprost 1 drp OPHTHALMIC (EYE) PM 07/12/19 07/12/19 History ondansetron HCl [Zofran] 4 mg PO Q6H PRN 07/12/19 07/12/19 History tramadol 50 mg PO Q8H PRN 07/12/19 07/12/19 History Patient History Medical History Acute hypoxemic respiratory failure Anxiety Arthritis Atrial tachycardia Cataracts, bilateral CKD (chronic kidney disease), stage III DM type 2 (diabetes mellitus, type 2) Dyslipidemia HTN (hypertension) HX: breast cancer Metastatic breast cancer S/P admission to ICU (intensive care unit) Temporal arteritis Surgical History H/O right mastectomy Jun 2018 History of appendectomy History of cataract surgery S/P LIZBETH-BSO Family History Mother Diabetes Social History Preferred Language: Romanian Communication Ability: Effective 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 Beliefs That Will Affect Care: None marital status: Current Living Situation: Spouse Other Information That Helps Us Care for You: No Feels Safe at Home: Yes Safety Concerns: Feels Safe At This Time Smoking Status: Never smoker Hx Alcohol Use: No Hx Substance Use: No Review of Systems Review of Systems: All systems reviewed & are unremarkable except as noted in HPI & below Physical Exam Constitutional: Comfortable, frail-appearing elderly woman in no acute distress ENMT: external ear and nose normal, oropharynx normal Respiratory: normal respiratory effort, lungs clear to auscultation Cardiovascular: RRR, no murmur, no edema Gastrointestinal (Abdomen): Inspection/Auscultation: + hypoactive bowel sounds; abdomen not distended Percussion/Palpation: + abdomen tender (mildly, diffuse) and abdomen soft; no guarding Skin: no rashes, warm and dry Psychiatric: A+Ox3, euthymic affect Lymphatic: no cervical or axillary lymphadenopathy Results & Data Vital Signs (Past 12 Hours) Vital Signs Temp Pulse Pulse Resp BP Pulse Ox 07/24/19 06:00 74 158/75 H 07/24/19 04:00 36.8 C 75 17 145/69 H 94 07/24/19 00:00 37.6 C H 89 89 18 114/80 07/23/19 22:00 96 H 17 Laboratory Results Laboratory Results - last 24 hr 07/23/19 07/23/19 07/23/19 11:01 16:23 20:04 WBC RBC Hgb Hct MCV MCH MCHC RDW Std Deviation RDW Coeff of Jennifer Plt Count MPV Immature Gran % (Auto) Neut % (Auto) Lymph % (Auto) [place] % (Auto) Eos % (Auto) Baso % (Auto) Immature Gran # (Auto) Neut # (Auto) Lymph # (Auto) [place] # (Auto) Eos # (Auto) Baso # (Auto) Sodium Potassium Chloride Carbon Dioxide Anion Gap BUN Creatinine Est Cr Clr Drug Dosing Est GFR ( Amer) Est GFR (Non-Af Amer) BUN/Creatinine Ratio Glucose POC Glucose 164 H 118 H 171 H Calcium Phosphorus Magnesium Total Bilirubin AST ALT Alkaline Phosphatase Total Protein Albumin Globulin Albumin/Globulin Ratio 07/23/19 07/24/19 07/24/19 23:37 04:28 04:40 WBC 14.00 H RBC 2.71 L Hgb 8.6 L Hct 26.4 L MCV 97.4 MCH 31.7 MCHC 32.6 RDW Std Deviation 50.9 H RDW Coeff of Jennifer 15.5 H Plt Count 179 MPV 9.9 Immature Gran % (Auto) 0.7 Neut % (Auto) 73.8 Lymph % (Auto) 7.3 [place] % (Auto) 13.5 Eos % (Auto) 4.5 Baso % (Auto) 0.2 Immature Gran # (Auto) 0.10 H Neut # (Auto) 10.33 H Lymph # (Auto) 1.02 L [place] # (Auto) 1.89 H Eos # (Auto) 0.63 H Baso # (Auto) 0.03 Sodium Potassium Chloride Carbon Dioxide Anion Gap BUN Creatinine Est Cr Clr Drug Dosing Est GFR ( Amer) Est GFR (Non-Af Amer) BUN/Creatinine Ratio Glucose POC Glucose 130 H 99 Calcium Phosphorus Magnesium Total Bilirubin AST ALT Alkaline Phosphatase Total Protein Albumin Globulin Albumin/Globulin Ratio 07/24/19 07/24/19 04:40 07:31 WBC RBC Hgb Hct MCV MCH MCHC RDW Std Deviation RDW Coeff of Jennifer Plt Count MPV Immature Gran % (Auto) Neut % (Auto) Lymph % (Auto) [place] % (Auto) Eos % (Auto) Baso % (Auto) Immature Gran # (Auto) Neut # (Auto) Lymph # (Auto) [place] # (Auto) Eos # (Auto) Baso # (Auto) Sodium 137 Potassium 4.2 Chloride 101 Carbon Dioxide 32 Anion Gap 4.0 BUN 38 H Creatinine 1.22 H Est Cr Clr Drug Dosing 32.9 Est GFR ( Amer) 47.4 Est GFR (Non-Af Amer) 40.9 BUN/Creatinine Ratio 31.4 H Glucose 96 POC Glucose 135 H Calcium 8.4 L Phosphorus 4.1 Magnesium 2.1 Total Bilirubin 0.6 AST 36 ALT 28 Alkaline Phosphatase 81 Total Protein 5.2 L Albumin 2.2 L Globulin 3.0 Albumin/Globulin Ratio 0.[address] Chest, 07/23/19: IMPRESSION: 1. Partial consolidative changes/atelectatic change right upper lobe 2. Moderate luminal irregularity of several right upper lobe bronchi. 3. Right pleural effusion with moderate atelectatic change superior segment right lower lobe. 4. Minimal atelectatic changes left lung base associated with slight pleural thickening. 5. An obstructive process centrally must be considered. CT A/P, 07/12/19: IMPRESSION: 1. Interval development of a small bowel obstruction with transition point within the pelvis. The etiology for this obstruction is not clear on this exam. Increase in ascites and mesenteric infiltration. This could be correlated with lactate to exclude the possibility of bowel ischemia but no pneumatosis, free air or portal venous gas. Peritoneal carcinomatosis is also within the differential. Subtle omental nodularity. Findings discussed with Dr. Jolly at time of dictation. 2. Possible annular lesion within the distal transverse colon. Correlation with nonemergent colonoscopy is recommended. 3. Bilateral hydronephrosis of uncertain etiology. 4. Moderate gallbladder wall thickening, a nonspecific finding. 5. 1 cm enhancing lesion along the left lateral aspect of the bladder which likely reflects a urothelial lesion. 6. Possible sclerotic lesion within the posterior right 10th rib. Metastatic disease is within the differential.
--- NOTE | 2019-07-24 09:20 | Pulmonology Progress Note ---
Date of Service July 24, 2019 Assessment & Plan (1) Acute hypoxemic respiratory failure: I did a bronchoscopy yesterday which demonstrated an abnormality at the orifice of the right upper lobe. We did take biopsies of this. Biopsies pending. The segmental branches of the right upper lobe did appear to be compressed. There was no significant mucus. I did a CT after the [facility] which demonstrated atelectasis in the right upper lobe with some luminal abnormalities. She does have a small right pleural effusion. I did discuss the case with Dr. Mannie Brandt from hematology/oncology. She has carcinomatosis in the abdomen likely metastatic breast cancer. Dr. Brandt does note that the breast cancer is ER positive. We can certainly drain the effusion if that becomes an issue in the future. She is afebrile and saturating well on room air at this present time. No obvious indication for procedure at this moment. (2) Infiltrate of right lung present on chest x-ray: (3) Metastatic breast cancer: Subjective Patient is saturating well on room air today. She denies any nausea or vomiting. Denies any chest pain. Physical Exam Constitutional: WD/WN, vitals as above ENMT: Mallampati Class: II Respiratory: normal respiratory effort, lungs clear to auscultation Cardiovascular: RRR, no murmur, no edema Neurologic: CN's II-XI intact bilaterally Results & Data Vital Signs (Past 12 Hours) Vital Signs Temp Pulse Pulse Resp BP Pulse Ox 07/24/19 06:00 74 158/75 H 07/24/19 04:00 98.2 F 75 17 145/69 H 94 07/24/19 00:00 99.7 F H 89 89 18 114/80 07/23/19 22:00 96 H 17 PG Care Time/CCT Total # of Minutes Spent Total Time Spent with Patient: Total time spent is greater than 50% in coordination of care (as documented) at patient's floor/unit and/or counseling patient:
[2019-07-24] MEDS: ESCITALOPRAM OXALATE 10 MG TAB PO SCH (09:41)
[2019-07-24] MEDS: NYSTATIN SUSP 500,000 U/5 ML UDC PO SCH ×4 (09:41→21:23)
[2019-07-24] MEDS: DOCUSATE SODIUM/SENNA 50/8.6MG TAB PO SCH ×2 (09:42→21:23)
[2019-07-24] MEDS: HEPARIN SOD 5,000 UNIT/0.5 ML VIAL SQ SCH ×2 (09:42→13:03)
[2019-07-24] MEDS: INSULIN GLARGINE SOLOSTAR 100 UNITS/ML 3 ML PEN SC SCH ×2 (09:43→21:19)
--- NOTE | 2019-07-24 10:12 | Palliative Care Consultation ---
Date of Consultation July 24, 2019 Assessment & Plan (1) Goals of care, counseling/discussion: -83 year old female patient with PMH ER-positive breast cancer in 2009, presented to the hospital 12 days ago with SBO. It was initially treated conservatively with NGT and bowel rest. CT abd/pelvis on admission showed possible transverse colon lesion, possible bladder lesion, and BL hydronephrosis. GI and urology consulted. Patient's SBO resolved and NGT removed on 07/14. Patient underwent colonoscopy on 07/17 which revealed hemorrhoids, moderate sigmoist and descending colon diverticulosis, and splenic flexure stricture. The stricture was biopsied and showed metastatic carcinoma of breast primary. Patient then went for colon resection with reanastomosis on 07/18. Post- operatively patient was sent to ICU-- her CXR showed RUL atelectasis and eventual collapse. CT abd/pelvis on 07/19 showed rectus sheath hematoma which is stable. Patient was placed on TPN for prolonged NPO, but patient did start tolerating clear liquids and eventual regular diet. Late in the evening of 07/20 patient went into afib with RVR, cardiology consulted. She is now rate- controlled. Patient underwent bronchoscopy on 07/23-- RUL lesion was biopsied, path pending. Heme/onc consulted who states that due to juananet's ER-positive disease, she could take an aromatase inhibitor and possibly CDK inhibitor as well. Urine cytology is negative, but patient still plans to follow up with urology as an outpatient for the hydronephrosis. Palliative care is now consulted to discuss goals of care with this patient and her family. -Met with patient this morning in room 108. Despite all that patient has been through, she looks fairly well. She is AA&O x4, able to move herself around quite well in the bed. Tolerating her diet. Denies abdominal pain or N/V. Does c/o generalized weakness. -Patient states that her goal is to get back home where she lives with her . Patient has two daughters who are local: Elaina Ace who is POA, and Jessica who is also very involved. Patient's has significant dementia, but the daughters help care for him. -We discussed patient's medical conditions. Patient states that she is willing to do endocrine therapy with the aromatase inhibitor, but is not interested in chemotherapy, further surgeries or other invasive procedures. We discussed hospice care for future reference, and patient is certainly interested. Depending on what treatment regimen she is placed on by oncology, she may even be eligible for hospice now, but we can defer to the outpatient setting once she has been discharged. -Normally, patient is independent as far as her ADLs. Again, she has very supp ortive daughters. PT/OT are consulted, patient states she has already been able to get OOB and ambulate. We will touch base with patient's daughter Elaina later this afternoon when she is at the bedside. (2) Lesion of colon: (3) Metastatic breast cancer: (4) Paroxysmal atrial fibrillation: Supervising Physician Co-Signing Physician Notes Chart reviewed, patient seen and examined. Patient's daughter and 2 grandsons at bedside. PE: Patient appears fatigued, awake and alert, no acute distress HEENT: EOMI, hearing within normal limits Respiratory: Unlabored CV: Regular rate Abdomen: Soft, nontender to light palpation, positive bowel sounds, dressing clean dry and intact Neuro: Alert and oriented Encourage patient to consider short-term rehab to regain strength before she returns home. Agree with above note, assessment and plan as per RACHELLE Delgado, will continue to follow and assist with medical decision making. History of Present Illness Reason for Consultation: Goals of care Requesting Physician: Dr. Armstrong Attending Physician: Shelton Armstrong MD History of Present Illness This 83 year old female patient with PMH ER-positive breast cancer in 2009, presented to the hospital 12 days ago with SBO. It was initially treated conservatively with NGT and bowel rest. CT abd/pelvis on admission showed possible transverse colon lesion, possible bladder lesion, and BL hydronephrosis. GI and urology consulted. Patient's SBO resolved and NGT removed on 07/14. Patient underwent colonoscopy on 07/17 which revealed hemorrhoids, moderate sigmoist and descending colon diverticulosis, and splenic flexure stricture. The stricture was biopsied and showed metastatic carcinoma of breast primary. Patient then went for colon resection with reanastomosis on 07/18. Post- operatively patient was sent to ICU-- her CXR showed RUL atelectasis and eventual collapse. CT abd/pelvis on 07/19 showed rectus sheath hematoma which is stable. Patient was placed on TPN for prolonged NPO, but patient did start tolerating clear liquids and eventual regular diet. Late in the evening of 07/20 patient went into afib with RVR, cardiology consulted. She is now rate- controlled. Patient underwent bronchoscopy on 07/23-- RUL lesion was biopsied, path pending. Heme/onc consulted who states that due to yarelis's ER-positive disease, she could take an aromatase inhibitor and possibly CDK inhibitor as well. Urine cytology is negative, but patient still plans to follow up with urology as an outpatient for the hydronephrosis. Palliative care is now consulted to discuss goals of care with this patient and her family. Thank you kindly for this consult. Palliative care team will follow as needed. Allergies Allergy/AdvReac Type Severity Reaction Status Date / Time Influenza Virus Vaccines Allergy Mild SWELLING Verified 07/12/19 08:28 Home Medications Home Medications Medication Instructions Recorded Confirmed Type Actemra 162 mg IV .Q OTHER WEEK 03/28/18 07/14/19 History alprazolam [Xanax] 0.25 mg PO DAILY PRN 03/28/18 07/12/19 History ascorbic acid (vitamin C) [Vitamin 500 mg PO QAM 03/28/18 07/12/19 History C] atenolol [Tenormin] 50 mg PO BID 03/28/18 07/12/19 History calcium carbonate-vitamin D3 1 tab PO BID 03/28/18 07/12/19 History [Os-Arcadio 500 + D3] escitalopram oxalate [Lexapro] 10 mg PO QAM 03/28/18 07/12/19 History multivitamin 1 tab PO QAM 03/28/18 07/12/19 History rosuvastatin [Crestor] 20 mg PO QAM 03/28/18 07/12/19 History cranberry 400 mg PO QAM 07/07/19 07/12/19 History famotidine [Pepcid] 20 mg PO BID 07/07/19 07/12/19 History linagliptin [Tradjenta] 5 mg PO QAM 07/07/19 07/12/19 History amitriptyline 25 mg PO HS 07/12/19 07/12/19 History amlodipine 5 mg PO DAILY 07/12/19 07/12/19 History esomeprazole magnesium [Nexium] 20 mg PO DAILY 07/12/19 07/12/19 History latanoprost 1 drp OPHTHALMIC (EYE) PM 07/12/19 07/12/19 History ondansetron HCl [Zofran] 4 mg PO Q6H PRN 07/12/19 07/12/19 History tramadol 50 mg PO Q8H PRN 07/12/19 07/12/19 History Patient History Medical History (Updated 07/24/19 @ 13:24 by RACHELLE Lundberg) Acute hypoxemic respiratory failure Anxiety Arthritis Atrial tachycardia Cataracts, bilateral CKD (chronic kidney disease), stage III DM type 2 (diabetes mellitus, type 2) Dyslipidemia Goals of care, counseling/discussion HTN (hypertension) HX: breast cancer Metastatic breast cancer S/P admission to ICU (intensive care unit) Temporal arteritis Surgical History H/O right mastectomy Jun 2018 History of appendectomy History of cataract surgery S/P LIZBETH-BSO Family History Mother Diabetes Social History Preferred Language: Indonesian Communication Ability: Effective [employer] Inspector Required: No Beliefs That Will Affect Care: None marital status: Current Living Situation: Spouse Other Information That Helps Us Care for You: No Feels Safe at Home: Yes Safety Concerns: Feels Safe At This Time Smoking Status: Never smoker Hx Alcohol Use: No Hx Substance Use: No Review of Systems Review of Systems: Const: + weakness, good appetite ENMT: No dysphagia Resp: No SOB, no cough Cardio: No chest pain GI: No abdominal pain, no N/V, + loose bowel movements MS: No musculoskeletal pain Neuro: No confusion Psych: No anxiety, no depression Physical Exam Constitutional: no acute distress Respiratory: normal respiratory effort, lungs clear to auscultation Auscultation: + diminished lung sounds Cardiovascular: Rate/Rhythm: regular rate; + abnormal rhythm Gastrointestinal (Abdomen): Inspection/Auscultation: normal bowel sounds Percussion/Palpation: + abdomen tender (very mildly) and abdomen soft surgical dressing present Neurologic: moves all extremities and awake; not confused Psychiatric: A+Ox3, euthymic affect Results & Data Vital Signs (Past 12 Hours) Vital Signs Temp Pulse Pulse Resp BP Pulse Ox 07/24/19 06:00 74 158/75 H 07/24/19 04:00 36.8 C 75 17 145/69 H 94 07/24/19 00:00 37.6 C H 89 89 18 114/80 Time Spent Midlevel 70 minutes with >50% of the time spent at bedside with patient and family discussing condition and GOC.
--- NOTE | 2019-07-24 10:32 | Surgery Progress Note ---
Date of Service July 24, 2019 Assessment & Plan (1) Colon stricture: POD 6 resection transverse colon/splenic flexure seen earlier by Dr. Andino H&H stable, Cr 1.2 can d/c felix, increase activity she hopes to return home at d/c Subjective tolerating diet, bowels moving frequently, minimal pain, amb in room Physical Exam Gastrointestinal (Abdomen): Inspection/Auscultation: + abdominal surgical incision (clean, dry); abdomen not distended Percussion/Palpation: abdomen soft Results & Data Vital Signs (Past 12 Hours) Vital Signs Temp Pulse Pulse Resp BP Pulse Ox 07/24/19 06:00 74 158/75 H 07/24/19 04:00 36.8 C 75 17 145/69 H 94 07/24/19 00:00 37.6 C H 89 89 18 114/80 PG Care Time/CCT Total # of Minutes Spent Total Time Spent with Patient: Total time spent is greater than 50% in coordination of care (as documented) at patient's floor/unit and/or counseling patient:
--- NOTE | 2019-07-24 11:33 | Pharmacy Report ---
Pharmacy Glycemic Short Note 2 - Date of Service July 24, 2019 - Glycemic Short BSG Results (Last 24 hours): 07/23/19 07/23/19 07/23/19 16:23 20:04 23:37 Glucose POC Glucose 118 H 171 H 130 H 07/24/19 07/24/19 07/24/19 04:28 04:40 07:31 Glucose 96 POC Glucose 99 135 H OUTPATIENT ANTIDIABETIC REGIMEN: * Linagliptin 5mg PO daily * A1c = 6.9% 05/2019 ASSESSMENT: 07/24 * BSGs have improved drastically since TPN stopped yesterday * Fasting BSG 135 this AM with 11 units Lantus on board - will continue w/ scale basal dose in light of new diet and uncertain insulin needs * Novolog CF / CR dose will be scaled back only slightly as pt appeared to be very sensitive to carb provision yesterday, however IV carb provision and PO carb consumption are not 1:1 conversions due to bypassing gut incretin synthesis. Follow post-prandial trend and adjust if warranted. 07/23 * BSG's elevated last evening, but better controlled this AM * Pt is NPO today for bronch but will have diet advanced after procedure. * Plan is to discontinue the TPN after today's bag finishes infusing * Pt requires extremely high insulin doses when IV dextrose infused 24hrs per day (>1.6unit/kg/day) , now that TPN is being discontinued will rely on weight based basal/bolus regimen and "moderate-severe" stress level for next 24 hrs 07/22 * BSGs have been erratic over the last 24 hrs despite changes made to insulin regimen yesterday * Over the last 24 hrs 84 units of insulin given vs 34 units given the previous day with little to no improvement in glycemic control, likely a consequence of dextrose increase in TPN despite proactive insulin increase * TPN to continue today per surgery, IJ to remain in place for TPN delivery. Pt reported to be tolerating clears, no NV, + flatus but no BM * Will not increase dextrose content of TPN, will increase insulin in TPN. Will also increase Novolog CF and CR doses 07/21 * Type 2 diabetic admitted for SBO, now s/p resection * She is currently receiving TPN for prolonged NPO status, however today her NGT was removed and she was ordered clear liq diet * Pt experiencing A fib w/ RVR, not responsive to Lopressor IV and now initiated on Amiodarone gtt (provides continuous dextrose as carrier) * BSGs running higher today vs yesterday despite increased quantity of insulin in current TPN bag; will continue to up-titrate insulin dose in TPN. Current bag of TPN contains 100gm dextrose and 20 units insulin. 6 units correctional insulin have also been administered since this bag of TPN hung. PLAN FOR INPATIENT GLYCEMIC CONTROL: * Hold outpatient oral diabetes medications (linagliptin) * Basal insulin (adjustment to scale to allow for lesser doses) * Lantus SQ BID per scale: * 0 units if BSG less than 110 * 6 units if BSG 110-160 * 11 units if BSG above 160 * Bolus insulin (small dose decrease) * NovoLog per scale ACHS and at 0200 * Goal Range: Low 110 mg/dL - High 140 mg/dL * Correction Factor: 25 mg/dL/unit * Nutritional / Prandial insulin per carb ratio of 1 unit per 8 grams CHO consumed PLAN FOR DISCHARGE: * to be determined
--- NOTE | 2019-07-24 11:47 | Cardiology Progress Note ---
Date of Service July 24, 2019 Assessment & Plan (1) Paroxysmal atrial fibrillation: Amiodarone fusion has been discontinued, patient remains on oral metoprolol. Her heart rates are certainly much improved down to the 70 be per minute range, and it appears that it is more regular since 1 AM, 07/24/2019 on telemetry, I have ordered a 12-lead EKG for further assessment, as I believe there are P waves on her telemetry and she may be back in sinus rhythm. As noted, she is a poor candidate for anticoagulation, and I am very concerned about bleeding risk, and therefore I am holding off on systemic anticoagulation for stroke prophylaxis. Continue subcutaneous heparin for DVT prophylaxis. (2) Colon stricture: Status post operative intervention 07/18/2019. -Pathology consistent with metastatic breast cancer. (3) Metastatic breast cancer: Hematology medical oncology input noted and appreciated, patient with history of breast carcinoma treated in 2009. Now with late recurrence, abdominal metastatic disease. Does have small right pleural effusion which could also be metastatic. Subjective Patient denies cardiac complaint. She is comfortable lying supine. Blood pressure and heart rates are stable. Continues to have loose stools. Review of Systems Review of Systems: All systems reviewed & are unremarkable except as noted in HPI & below Physical Exam Physical Exam: Temp Pulse Resp BP Pulse Ox 36.8 C 74 17 158/75 H 94 07/24/19 04:00 07/24/19 06:00 07/24/19 04:00 07/24/19 06:00 07/24/19 04:00 Constitutional: Frail in appearance, no acute distress Respiratory: normal respiratory effort, lungs clear to auscultation Cardiovascular: Rate/Rhythm: regular rhythm Heart Sounds: no murmur Vessels: no JVD Gastrointestinal (Abdomen): Dressed midline abdominal incision, drain has been discontinued. Neurologic: PERRL, EOMI, accommodation nl, no face palsy, no dysarthria Results & Data Vital Signs (Past 12 Hours) Vital Signs Temp Pulse Pulse Resp BP Pulse Ox 07/24/19 06:00 74 158/75 H 07/24/19 04:00 36.8 C 75 17 145/69 H 94 07/24/19 00:00 37.6 C H 89 89 18 114/80 Laboratory Results Current Inpatient Medications Acetaminophen (Tylenol) 1,000 mg PO Q8 NENA Stop: 08/20/19 11:59 Last Admin: 07/24/19 05:56 Dose: 1,000 mg Documented by: Escitalopram Oxalate (Lexapro Tab) 10 mg PO QAM NENA Stop: 08/12/19 08:59 Last Admin: 07/24/19 09:41 Dose: 10 mg Documented by: Glucagon (Glucagen) 1 mg SQ UD PRN; Protocol PRN Reason: Hypoglycemia Protocol Stop: 08/11/19 12:45 Glucose (Dex4 Glucose) 4 - 8 tabs PO UD PRN; Protocol PRN Reason: Hypoglycemia Protocol Stop: 08/11/19 12:45 Glucose (Glucose 40%) 15 - 30 gm PO UD PRN; Protocol PRN Reason: Hypoglycemia Protocol Stop: 08/11/19 12:45 Heparin Sodium (Beef Lung) (Heparin Sod 10 Unit/Ml Flush) 5 ml FLUSH PRN PRN PRN Reason: Flush Stop: 08/22/19 23:00 Heparin Sodium (Porcine) (Heparin Sodium (Porcine)) 5,000 units SQ Q12 NENA Stop: 08/21/19 20:59 Last Admin: 07/24/19 09:42 Dose: 5,000 units Documented by: Promethazine HCl 12.5 mg/ (Sodium Chloride) 50.5 mls @ 202 mls/hr IV Q6H PRN PRN Reason: Nausea And Vomiting Stop: 08/21/19 23:12 Last Infusion: 07/22/19 23:50 Dose: Infused Documented by: Insulin Aspart (Novolog Flexpen) 0 units SC ACHS [facility]; Protocol Stop: 08/20/19 11:59 Last Admin: 07/24/19 09:42 Dose: Not Given Documented by: Insulin Aspart (Novolog Flexpen) 0 units SC TODAY@0000,0400 [facility]; Protocol Stop: 08/22/19 00:00 Last Admin: 07/24/19 04:38 Dose: Not Given Documented by: Insulin Glargine (Lantus Solostar Pen) 0 units SC BID [facility]; Protocol Stop: 08/23/19 08:59 Last Admin: 07/24/19 09:43 Dose: 6 units Documented by: Latanoprost (Xalatan Oph) 1 drops OP PM [facility] Stop: 08/11/19 20:59 Last Admin: 07/23/19 20:11 Dose: 1 drops Documented by: Metoprolol Tartrate (Lopressor) 5 mg IV Q5M PRN PRN Reason: Tachycardia Stop: 08/19/19 07:15 Last Admin: 07/22/19 14:51 Dose: 5 mg Documented by: Metoprolol Tartrate (Lopressor) 50 mg PO Q6 [facility] Stop: 08/21/19 11:59 Last Admin: 07/24/19 05:55 Dose: 50 mg Documented by: Miscellaneous Information (Consult Glycemic Management Pharmacy) 1 ea N/A UD PRN PRN Reason: Consult Stop: 08/19/19 03:42 Morphine Sulfate (Morphine Sulfate) 4 mg IV Q1H PRN PRN Reason: Pain Stop: 08/01/19 18:36 Last Admin: 07/21/19 20:30 Dose: 4 mg Documented by: Nystatin (Mycostatin) 5 ml PO QID [facility] Stop: 07/28/19 20:59 Last Admin: 07/24/19 09:41 Dose: 5 ml Documented by: Ondansetron HCl (Zofran) 4 mg IV Q6H PRN PRN Reason: nausea Stop: 08/11/19 12:45 Last Admin: 07/22/19 21:48 Dose: 4 mg Documented by: Phenol (Chloraseptic 1.4% Elrod) 1 sprays MT PRN PRN PRN Reason: Sore Throat Stop: 08/11/19 15:31 Last Admin: 07/12/19 21:34 Dose: 1 sprays Documented by: Senna/Docusate Sodium (Senokot S) 1 tab PO BID [facility] Stop: 08/20/19 10:59 Last Admin: 07/24/19 09:42 Dose: Not Given Documented by:
--- NOTE | 2019-07-24 12:16 | Hospitalist Progress Note ---
Date of Service July 24, 2019 Assessment & Plan (1) Small bowel obstruction: Small bowel obstruction Lesion of colon: -Status post colonoscopy, showing stricture of the colonic splenic flexure, biopsy performed -s/p Colon resection 07/19/2019 -monitor bowel movements - recently loose stools Metastatic Breast Cancer Rib lesions on imaging, right lung infiltrate -History of Breast Cancer treated in the past -biopsy results of colon reveals metastatic breast cancer -patient is s/p bronchoscopy on 07/23/2019 of right lung infiltrate and while bronchoscopy pathology specimens have been sent, post bronchoscopy CT scan may suggest obstructing mass such as lung cancer -patient reports that her past breast cancer was treated by oncologists at [facility]; await consult recommendations from [facility] oncology team. given multiple areas of involvement of cancer, palliative care consult was asked to see the patient Bilateral hydronephrosis Lesion of bladder: -CT notes 1 cm bladder lesion and possible transverse colon and rib lesions, bilateral hydronephrosis; possible carcinomatosis as etiology for SBO -urine is negative for urothelial carcinoma -felix to be removed on 07/24/2019 -(To have outpatient follow-up and probable cystoscopy as an outpatient; Appointment with Dr. Olivia as an outpatient on July 29, 2019 for further evaluation of hydronephrosis and suspected bladder lesion) Acute renal failure on Chronic Kidney Disease stage 3 -renal function has returned to baseline Acute Blood Loss Anemia -patient has received blood transfusion on this admission -monitor hemoglobin Atrial Fibrillation with Rapid Ventricular Response -patient had been on amiodarone and metoprolol for the Afib in RVR which developed on 07/21/2019 -as of 07/23/2019 patient's heart rates appeared to be controlled by metoprolol HTN (hypertension): -resume amlodipine 5 mg daily Nutrition -was on Total Parental Nutrition started 07/20/2019 -off Total Parental Nutrition as of 07/23/2009 -central line of the neck will be removed once peripheral IV access is obained DM type 2 (diabetes mellitus, type 2): -Hgb A1c 6.9 05/2019 -Hold oral agents and utilize insulin per protocol while hospitalized Temporal arteritis: -Receives Actemra injections every 14 days as outpatient Dyslipidemia: -Continue statin DVT prophylaxis: SCDs Subjective Heart rates are controlled. appears to still be in atrial fibrillation. patient appears comfortable. denies acute pain. breathing on room air. she has been able to make bowel movements but they are loose. she agrees to have felix removed for trial of void. Review of Systems Review of Systems: All systems reviewed & are unremarkable except as noted in HPI & below Physical Exam Constitutional: WD/WN, vitals as above Eyes: PERRL, conjunctivae normal, anicteric sclerae EOM intact bilaterally ENMT: external ear and nose normal, oropharynx normal Neck: central line of right neck Respiratory: normal respiratory effort, lungs clear to auscultation Cardiovascular: Rate/Rhythm: regular rate and + irregularly irregular Gastrointestinal (Abdomen): Inspection/Auscultation: normal bowel sounds dressing over abdomen Musculoskeletal: Head/Neck/Chest: normocephalic and head atraumatic Neurologic: PERRL, EOMI, accommodation nl, no face palsy, no dysarthria CN's II-XI intact bilaterally Psychiatric: A+Ox3, euthymic affect Genitourinary: felix Results & Data Vital Signs (Past 12 Hours) Vital Signs Temp Pulse Resp BP Pulse Ox 07/24/19 06:00 74 158/75 H 07/24/19 04:00 36.8 C 75 17 145/69 H 94
[2019-07-24] MEDS: AMLODIPINE BESYLATE 5 MG TAB PO SCH (13:00)
[2019-07-24] MEDS ORDERED: ACETAMINOPHEN 325 MG TAB PO PRN (18:13)
[2019-07-24] MEDS: LATANOPROST 0.005% OP SOLN 2.5 ML BTL OP SCH (21:23)
[2019-07-25] MEDS: METOPROLOL TARTRATE 50 MG TAB PO SCH ×3 (00:04→11:55)
[2019-07-25] MEDS: INSULIN ASPART 100 UNITS/ML 3 ML PEN SC SCH ×6 (00:05→20:25)
[2019-07-25] MEDS: MoRPHine SULFATE 4 MG/ML 1 ML CARP\\VIAL IV PRN (00:38)
--- NOTE | 2019-07-25 06:10 | Electrocardiogram Report ---
Test Reason : Blood Pressure : / mmHG Vent. Rate : 082 BPM Atrial Rate : 082 BPM P-R Int : 176 ms QRS Dur : 082 ms QT Int : 422 ms P-R-T Axes : -18 -03 035 degrees QTc Int : 493 ms Normal sinus rhythm Prolonged QT Abnormal ECG When compared with ECG of 21-JUL-2019 10:30, Sinus rhythm has replaced Atrial flutter Vent. rate has decreased BY 50 BPM T wave inversion no longer evident in Lateral leads Confirmed by Jay Marcum ([id number]) on 07/25/2019 6:10:13 AM Referred By: REFERRED SELF Confirmed By:Jay Marcum
--- NOTE | 2019-07-25 07:20 | Surgery Progress Note ---
Date of Service July 25, 2019 Assessment & Plan (1) Colon stricture: POD#7 partial colon resection patient doing well from surgical standpoint tolerating diet and having bowel function stable for discharge from our standpoint pending medicine clearance will ask patient to follow up in clinic with Dr. Andino next wk for staple removal pt seen and examined with Dr. Andino Subjective Patient states that she is feeling well. Tolerating a diet and having + bowel function. Pain controlled. Physical Exam Physical Exam: awake/alert Constitutional: no acute distress Gastrointestinal (Abdomen): Inspection/Auscultation: + abdominal surgical incision (c/d/i with julianna in place); abdomen not distended Percussion/Palpation: abdomen soft; abdomen nontender Results & Data Vital Signs (Past 12 Hours) Vital Signs Temp Pulse Resp BP Pulse Ox 07/25/19 06:00 79 18 07/25/19 05:00 77 22 07/25/19 04:00 80 16 157/71 H 07/25/19 03:00 75 18 07/25/19 02:00 82 13 07/25/19 01:00 79 17 07/25/19 00:10 92 H 20 160/70 H 07/25/19 00:05 87 17 07/24/19 20:17 37.0 C 81 16 138/77 98 PG Care Time/CCT Total # of Minutes Spent Total Time Spent with Patient: Total time spent is greater than 50% in coordination of care (as documented) at patient's floor/unit and/or counseling patient:
[2019-07-25] MEDS: HEPARIN SOD 5,000 UNIT/0.5 ML VIAL SQ SCH ×2 (07:52→20:25)
[2019-07-25] MEDS: INSULIN GLARGINE SOLOSTAR 100 UNITS/ML 3 ML PEN SC SCH ×2 (07:52→20:25)
[2019-07-25] MEDS: DOCUSATE SODIUM/SENNA 50/8.6MG TAB PO SCH ×2 (07:54→20:20)
[2019-07-25] MEDS: ESCITALOPRAM OXALATE 10 MG TAB PO SCH (07:54)
[2019-07-25] MEDS: AMLODIPINE BESYLATE 5 MG TAB PO SCH (07:54)
[2019-07-25] MEDS: NYSTATIN SUSP 500,000 U/5 ML UDC PO SCH ×4 (07:54→20:16)
[2019-07-25 08:08] LABS: Basophils # (auto) 0.03 K/uL (0-0.2); Basophils % (auto) 0.3 %; Eosinophils # (auto) 0.54 K/uL (0-0.5); Hemoglobin 8.6 g/dL (12.0-16.0); Immature Granulocytes # (auto) 0.06 K/uL (0.00-0.02); Immature Granulocytes % (auto) 0.6 %; Lymphocytes # (auto) 0.96 K/uL (1.2-3.4); Lymphocytes % (auto) 8.9 %; Mean Corpuscular Hemoglobin 31.9 pg (25-34); Monocytes # (auto) 1.82 K/uL (0.11-0.59); Monocytes % (auto) 16.9 %; Neutrophils # (auto) 7.35 K/uL (1.4-6.5); Neutrophils % (auto) 68.3 %; Platelet Count 198 K/uL (130-400); RDW Coefficient of Variation 16.2 % (11.5-14.5); RDW Standard Deviation 54.1 fL (36.4-46.3); White Blood Count 10.76 K/uL (4.8-10.8)
[2019-07-25 08:16] LABS: Mean Corpuscular Hgb Conc 31.9 g/dL (32-36)
[2019-07-25 08:23] LABS: Albumin Level 2.7 gm/dl (3.4-5.0); BUN Creatinine Ratio 24.5 (10-20); Calcium 8.8 mg/dl (8.5-10.1); Creatinine Clr Calc Pharmacy 23.1 ml/min; Est GFR (African American) 34.4; Est GFR (Non-African American) 29.7; Potassium 4.3 mmol/L (3.5-5.1)
[2019-07-25 08:26] LABS: Albumin Globulin Ratio 0.9 (0.9-2); Bilirubin,Total 0.7 mg/dl (0.2-1); Globulin 2.9 gm/dl (2.5-4.0); Total Protein 5.6 gm/dl (6.4-8.2)
--- NOTE | 2019-07-25 09:42 | Palliative Care Progress Note ---
Date of Service July 25, 2019 Assessment & Plan (1) Goals of care, counseling/discussion: -Patient is feeling well today. She has no abdominal pain. Her surgical dressing was removed by surgical team and incision is now open to air. Tolerating diet. -VS stable. Patient is doing quite well. Surgery states she is ready for discharge from their standpoint. -Myself and Dr. Dickey separately met with patient and family yesterday. The plan is for patient to return home with home health. Case management is following and coordinating discharge. Patient plans to take an aromatase inhibitor for her metastatic cancer. She is open to hospice care in the future. -Palliative care will sign off at this time. Please contact us with any further needs. Thank you. (2) Lesion of colon: (3) Metastatic breast cancer: (4) Paroxysmal atrial fibrillation: Subjective Patient is feeling well this morning. TOlerating diet. Was up in chair all morning, now back in bed. No family at bedside. Review of Systems Review of Systems: Const: less weakness, good appetite ENMT: No dysphagia Resp: No SOB, no cough Cardio: No chest pain GI: No abdominal pain, no N/V, + loose bowel movements MS: No musculoskeletal pain Neuro: No confusion Psych: No anxiety, no depression Physical Exam Constitutional: no acute distress Respiratory: normal respiratory effort, lungs clear to auscultation Auscultation: + diminished lung sounds Cardiovascular: Rate/Rhythm: regular rate; + abnormal rhythm Gastrointestinal (Abdomen): Inspection/Auscultation: normal bowel sounds Percussion/Palpation: + abdomen tender (very mildly) and abdomen soft Neurologic: moves all extremities and awake; not confused Psychiatric: A+Ox3, euthymic affect Results & Data Vital Signs (Past 12 Hours) Vital Signs Temp Pulse Resp BP Pulse Ox 07/25/19 07:59 37.4 C 77 17 136/65 93 07/25/19 07:00 71 18 07/25/19 06:00 79 18 07/25/19 05:00 77 22 07/25/19 04:00 80 16 157/71 H 07/25/19 03:00 75 18 07/25/19 02:00 82 13 07/25/19 01:00 79 17 07/25/19 00:10 92 H 20 160/70 H 07/25/19 00:05 87 17 Time Spent Midlevel 35 minutes with >50% of the time spent at bedside with patient and IDT discussing goals and plan of care.
--- NOTE | 2019-07-25 11:39 | Pulmonology Progress Note ---
Date of Service July 25, 2019 Assessment & Plan (1) Acute hypoxemic respiratory failure: Patient has metastatic breast cancer. She has a right-sided effusion. I can perform a thoracentesis of this, however, she is asymptomatic at this current time and saturating well on room air. Certainly if she has issues in the future, we can always proceed to do a thoracentesis. However tapping this fluid would not change her overall prognosis that she has stage IV cancer at this point. She also has some right upper lobe collapse, but again she is relatively asymptomatic. Would simply recommend repeat imaging in 6 weeks or so. She did have a long course of antibiotics that she has completed. Pulmonary will sign off. Thank you for the consult. Please call with questions (2) Infiltrate of right lung present on chest x-ray: (3) Metastatic breast cancer: Subjective Patient saturating well on room air today. She is eager to go home tomorrow. No acute complaints. No chest pain. No fevers or chills. No nausea or vomiting. Physical Exam Constitutional: WD/WN, vitals as above ENMT: Mallampati Class: II Respiratory: normal respiratory effort, lungs clear to auscultation Cardiovascular: RRR, no murmur, no edema Neurologic: CN's II-XI intact bilaterally Results & Data Vital Signs (Past 12 Hours) Vital Signs Temp Pulse Resp BP Pulse Ox 07/25/19 07:59 99.3 F 77 17 136/65 93 07/25/19 07:00 71 18 07/25/19 06:00 79 18 07/25/19 05:00 77 22 07/25/19 04:00 80 16 157/71 H 07/25/19 03:00 75 18 07/25/19 02:00 82 13 07/25/19 01:00 79 17 07/25/19 00:10 92 H 20 160/70 H 07/25/19 00:05 87 17 PG Care Time/CCT Total # of Minutes Spent Total Time Spent with Patient: Total time spent is greater than 50% in coordination of care (as documented) at patient's floor/unit and/or counseling patient:
[2019-07-25] MEDS ORDERED: SODIUM CHLORIDE 0.9% 1000ML 1,000 ML IV SCH (11:45)
--- NOTE | 2019-07-25 12:11 | Pharmacy Report ---
Pharmacy Glycemic Short Note 2 - Date of Service July 25, 2019 - Glycemic Short BSG Results (Last 24 hours): 07/24/19 07/24/19 07/25/19 16:14 21:10 00:04 Glucose POC Glucose 105 H 142 H 183 H 07/25/19 07/25/19 07/25/19 04:13 07:20 07:49 Glucose 190 H POC Glucose 175 H 176 H 07/25/19 11:25 Glucose POC Glucose 196 H OUTPATIENT ANTIDIABETIC REGIMEN: * Linagliptin 5mg PO daily * A1c = 6.9% 05/2019 ASSESSMENT: 07/25 * Fasting BSG 176 this AM with 17 units basal + 5 units correctional insulin admin overnight. Will continue current Lantus scale however as BSGs in the low-mid 100s yesterday while PO consumption poor. Overnight BSG and correction ordered * Overall glycemic control acceptable over last 24 hrs * Continue to monitor response to prandial insulin doses given lack adequate trial 07/24 * BSGs have improved drastically since TPN stopped yesterday * Fasting BSG 135 this AM with 11 units Lantus on board - will continue w/ scale basal dose in light of new diet and uncertain insulin needs * Novolog CF / CR dose will be scaled back only slightly as pt appeared to be very sensitive to carb provision yesterday, however IV carb provision and PO carb consumption are not 1:1 conversions due to bypassing gut incretin synthesis. Follow post-prandial trend and adjust if warranted. 07/23 * BSG's elevated last evening, but better controlled this AM * Pt is NPO today for bronch but will have diet advanced after procedure. * Plan is to discontinue the TPN after today's bag finishes infusing * Pt requires extremely high insulin doses when IV dextrose infused 24hrs per day (>1.6unit/kg/day) , now that TPN is being discontinued will rely on weight based basal/bolus regimen and "moderate-severe" stress level for next 24 hrs 07/22 * BSGs have been erratic over the last 24 hrs despite changes made to insulin regimen yesterday * Over the last 24 hrs 84 units of insulin given vs 34 units given the previous day with little to no improvement in glycemic control, likely a consequence of dextrose increase in TPN despite proactive insulin increase * TPN to continue today per surgery, IJ to remain in place for TPN delivery. Pt reported to be tolerating clears, no NV, + flatus but no BM * Will not increase dextrose content of TPN, will increase insulin in TPN. Will also increase Novolog CF and CR doses 1/6 * Type 2 diabetic admitted for SBO, now s/p resection * She is currently receiving TPN for prolonged NPO status, however today her NGT was removed and she was ordered clear liq diet * Pt experiencing A fib w/ RVR, not responsive to Lopressor IV and now initiated on Amiodarone gtt (provides continuous dextrose as carrier) * BSGs running higher today vs yesterday despite increased quantity of insulin in current TPN bag; will continue to up-titrate insulin dose in TPN. Current bag of TPN contains 100gm dextrose and 20 units insulin. 6 units correctional insulin have also been administered since this bag of TPN hung. PLAN FOR INPATIENT GLYCEMIC CONTROL: * Hold outpatient oral diabetes medications (linagliptin) * Basal insulin (adjustment to scale to allow for lesser doses) * Lantus SQ BID per scale: * 0 units if BSG less than 110 * 6 units if BSG 110-140 * 11 units if BSG above 140 * Bolus insulin (small dose decrease) * NovoLog per scale ACHS and at 0200 * Goal Range: Low 110 mg/dL - High 140 mg/dL * Correction Factor: 25 mg/dL/unit * Nutritional / Prandial insulin per carb ratio of 1 unit per 8 grams CHO consumed PLAN FOR DISCHARGE: * to be determined
--- NOTE | 2019-07-25 12:21 | Hospitalist Progress Note ---
Date of Service July 25, 2019 Assessment & Plan (1) Small bowel obstruction: Small bowel obstruction Lesion of colon: -Status post colonoscopy, showing stricture of the colonic splenic flexure, biopsy performed -s/p partial Colon resection 07/19/2019 -patient to follow up in general surgery clinic with Dr. Andino in 1 week for staple removal Metastatic Breast Cancer (ER positive) Rib lesions on imaging, right lung pleural effusion -History of Breast Cancer treated in the past -biopsy results of colon reveals metastatic breast cancer -patient is s/p bronchoscopy on 07/23/2019 of right lung infiltrate (bronchoscopy pathology: LUNG, RIGHT UPPER LOBE, BIOPSY: BENIGN RESPIRATORY MUCOSA WITH NONSPECIFIC ACUTE AND CHRONIC INFLAMMATION PRESENT )and while "She has a right- sided effusion. I can perform a thoracentesis of this, however, she is asymptomatic at this current time and saturating well on room air. Certainly if she has issues in the future, we can always proceed to do a thoracentesis. However tapping this fluid would not change her overall prognosis that she has stage IV cancer at this point. She also has some right upper lobe collapse, but again she is relatively asymptomatic. Would simply recommend repeat imaging in 6 weeks or so. She did have a long course of antibiotics that she has completed" as per pulmonary note on 07/25/2019 -As per [facility] oncology 07/24/2019: "Her tumor remains ER positive and so she would be a candidate for endocrine therapy. She could use an aromatase inhibitor again, potentially with a CDK inhibitor like palbociclib or abemaciclib. These agents are usually well tolerated and are oral, so she would not have to undergo chemotherapy. She was resistant to the idea of chemo but was open to endocrine therapy. Once she is stable for discharge, we can arrange for her to see Dr. Toribio in the office to discuss treatment." Bilateral hydronephrosis Lesion of bladder: -CT notes 1 cm bladder lesion and possible transverse colon and rib lesions, bilateral hydronephrosis; possible carcinomatosis as etiology for SBO -urine is negative for urothelial carcinoma -felix removed on 07/24/2019 -Patient's daughter have plan to re-schedule [facility] urology clinic follow up for further evaluation of hydronephrosis and suspected bladder lesion Acute renal failure on Chronic Kidney Disease stage 3 -renal function has returned to baseline Acute Blood Loss Anemia -patient has received blood transfusion on this admission -monitor hemoglobin Atrial Fibrillation with Rapid Ventricular Response -patient had been on amiodarone and metoprolol for the Afib in RVR which developed on 07/21/2019 -as of 07/23/2019 patient's heart rates appeared to be controlled by metoprolol and appears to have returned to sinus rhythm by 07/24/2019 or 07/25/2019 HTN (hypertension): -amlodipine 5 mg daily Nutrition -was on Total Parental Nutrition started 07/20/2019 -off Total Parental Nutrition as of 07/23/2009 -central line of the neck has been removed by 07/23/2019 DM type 2 (diabetes mellitus, type 2): -Hgb A1c 6.9 05/2019 -Hold oral agents and utilize insulin per protocol while hospitalized -check HbA1c Temporal arteritis: -Receives Actemra injections every 14 days as outpatient Dyslipidemia: -Continue statin DVT prophylaxis: SCDs Subjective Patient comfortable. no chest pain. no palpitations. heart rate controlled and appears to be in regular sinus rhythm. breathing on room air Review of Systems Review of Systems: All systems reviewed & are unremarkable except as noted in HPI & below Physical Exam Constitutional: WD/WN, vitals as above Eyes: PERRL, conjunctivae normal, anicteric sclerae EOM intact bilaterally ENMT: external ear and nose normal, oropharynx normal Neck: normal visual inspection Respiratory: normal respiratory effort, lungs clear to auscultation Cardiovascular: Rate/Rhythm: regular rate and + irregularly irregular Gastrointestinal (Abdomen): Inspection/Auscultation: normal bowel sounds Musculoskeletal: Head/Neck/Chest: normocephalic and head atraumatic Neurologic: PERRL, EOMI, accommodation nl, no face palsy, no dysarthria CN's II-XI intact bilaterally Psychiatric: A+Ox3, euthymic affect Results & Data Vital Signs (Past 12 Hours) Vital Signs Temp Pulse Resp BP Pulse Ox 07/25/19 11:26 37.1 C 77 17 135/54 L 94 07/25/19 10:00 74 15 07/25/19 07:59 37.4 C 77 17 136/65 93 07/25/19 07:00 71 18 07/25/19 06:00 79 18 07/25/19 05:00 77 22 07/25/19 04:00 80 16 157/71 H 07/25/19 03:00 75 18 07/25/19 02:00 82 13 07/25/19 01:00 79 17
[2019-07-25 12:29] LABS: Estimated Average Glucose 146 mg/dl; Hemoglobin A1C 6.7 % (4.5-5.6)
--- NOTE | 2019-07-25 15:35 | Cardiology Progress Note ---
Date of Service July 25, 2019 Assessment & Plan (1) Paroxysmal atrial fibrillation: (2) Metastatic breast cancer: Change metoprolol tartrate from 50 mg p.o. every 6 hours to 100 mg twice daily. Patient is not anticoagulated due to postoperative blood loss anemia, and overall bleeding risks with noted rectus sheath hematoma observed on CT earlier this admission. Continue subcutaneous heparin for DVT prophylaxis. Cardiology to sign off, please call with questions or concerns. Subjective Patient without subjective complaint. Telemetry reveals ongoing sinus rhythm at the time of my assessment earlier today. Physical Exam Physical Exam: Temp Pulse Resp BP Pulse Ox 36.5 C 78 16 128/71 95 07/25/19 15:28 07/25/19 15:28 07/25/19 15:28 07/25/19 15:28 07/25/19 15:28 Constitutional: WD/WN, vitals as above Respiratory: normal respiratory effort, lungs clear to auscultation Cardiovascular: RRR, no murmur, no edema Gastrointestinal (Abdomen): normal bowel sounds, soft, nontender, no hep atosplenomegaly Neurologic: PERRL, EOMI, accommodation nl, no face palsy, no dysarthria Results & Data Vital Signs (Past 12 Hours) Vital Signs Temp Pulse Resp BP Pulse Ox 07/25/19 15:28 36.5 C 78 16 128/71 95 07/25/19 12:50 36.9 C 84 16 135/65 99 07/25/19 11:26 37.1 C 77 17 135/54 L 94 07/25/19 10:00 74 15 07/25/19 07:59 37.4 C 77 17 136/65 93 07/25/19 07:00 71 18 07/25/19 06:00 79 18 07/25/19 05:00 77 22 07/25/19 04:00 80 16 157/71 H
[2019-07-25] MEDS: LATANOPROST 0.005% OP SOLN 2.5 ML BTL OP SCH (20:16)
[2019-07-25] MEDS: METOPROLOL TARTRATE 100 MG TAB PO SCH (20:20)
[2019-07-26] MEDS ORDERED: INSULIN ASPART 100 UNITS/ML 3 ML PEN SC SCH (02:00)
--- NOTE | 2019-07-26 05:44 | Surgery Progress Note ---
Date of Service July 26, 2019 Assessment & Plan (1) H/O colectomy: pt doing well jose alejandro diet, out of bed incision looks good, abd soft ok for d/c home from surg stdpt Results & Data Vital Signs (Past 12 Hours) Vital Signs Temp Pulse Pulse Resp BP BP Pulse Ox 07/25/19 23:10 37.1 C 76 14 147/71 H 96 07/25/19 20:14 83 131/62 100 PG Care Time/CCT Total # of Minutes Spent Total Time Spent with Patient: Total time spent is greater than 50% in coordination of care (as documented) at patient's floor/unit and/or counseling patient:
[2019-07-26 06:45] LABS: BUN Creatinine Ratio 24.5 (10-20); Calcium 8.6 mg/dl (8.5-10.1); Creatinine Clr Calc Pharmacy 26.7 ml/min; Est GFR (African American) 40.9; Est GFR (Non-African American) 35.3; Potassium 3.8 mmol/L (3.5-5.1)
[2019-07-26] MEDS ORDERED: INSULIN GLARGINE SOLOSTAR 100 UNITS/ML 3 ML PEN SC SCH (09:00)
[2019-07-26] MEDS: AMLODIPINE BESYLATE 5 MG TAB PO SCH (09:22)
[2019-07-26] MEDS: METOPROLOL TARTRATE 100 MG TAB PO SCH (09:22)
[2019-07-26] MEDS: ESCITALOPRAM OXALATE 10 MG TAB PO SCH (09:22)
[2019-07-26] MEDS: HEPARIN SOD 5,000 UNIT/0.5 ML VIAL SQ SCH (09:23)
[2019-07-26] MEDS: NYSTATIN SUSP 500,000 U/5 ML UDC PO SCH (09:23)
[2019-07-26] MEDS: DOCUSATE SODIUM/SENNA 50/8.6MG TAB PO SCH (09:27)
[2019-07-26] MEDS: INSULIN ASPART 100 UNITS/ML 3 ML PEN SC SCH (09:29)
--- NOTE | 2019-07-26 09:31 | Hospitalist Progress Note ---
Date of Service July 26, 2019 Assessment & Plan (1) Small bowel obstruction: Small bowel obstruction, lesion of colon, status post partial Colon resection, -Status post colonoscopy, showing stricture of the colonic splenic flexure, biopsy performed -s/p partial Colon resection 07/19/2019 -patient to follow up in general surgery clinic with Dr. Andino in 1 week for staple removal Metastatic Breast Cancer (ER positive) to colon and possibly elsewhere of body, Rib lesions on imaging, right lung pleural effusion Rib lesions on imaging, right lung pleural effusion -History of Breast Cancer treated in the past -biopsy results of colon reveals metastatic breast cancer -patient is s/p bronchoscopy on 07/23/2019 of right lung infiltrate (bronchoscopy pathology: LUNG, RIGHT UPPER LOBE, BIOPSY: BENIGN RESPIRATORY MUCOSA WITH NONSPECIFIC ACUTE AND CHRONIC INFLAMMATION PRESENT )and while "She has a right- sided effusion. I can perform a thoracentesis of this, however, she is asymptomatic at this current time and saturating well on room air. Certainly if she has issues in the future, we can always proceed to do a thoracentesis. However tapping this fluid would not change her overall prognosis that she has stage IV cancer at this point. She also has some right upper lobe collapse, but again she is relatively asymptomatic. Would simply recommend repeat imaging in 6 weeks or so. She did have a long course of antibiotics that she has completed" as per pulmonary note on 07/25/2019 -As per [facility] oncology 07/24/2019: "Her tumor remains ER positive and so she would be a candidate for endocrine therapy. She could use an aromatase inhibitor again, potentially with a CDK inhibitor like palbociclib or abemaciclib. These agents are usually well tolerated and are oral, so she would not have to undergo chemotherapy. She was resistant to the idea of chemo but was open to endocrine therapy. Once she is stable for discharge, we can arrange for her to see Dr. Toribio in the office to discuss treatment." Bilateral hydronephrosis Lesion of bladder: -CT notes 1 cm bladder lesion and possible transverse colon and rib lesions, bilateral hydronephrosis; possible carcinomatosis as etiology for SBO -urine is negative for urothelial carcinoma -felix removed on 07/24/2019 -Patient's daughter have plan to re-schedule [facility] urology clinic follow up for further evaluation of hydronephrosis and suspected bladder lesion Acute renal failure on Chronic Kidney Disease stage 3 -renal function has returned to baseline Acute Blood Loss Anemia -patient has received blood transfusion on this admission -monitor hemoglobin Atrial Fibrillation with Rapid Ventricular Response -patient had been on amiodarone and metoprolol for the Afib in RVR which developed on 07/21/2019 -as of 07/23/2019 patient's heart rates appeared to be controlled by metoprolol and appears to have returned to sinus rhythm by 07/24/2019 or 07/25/2019 -07/26/2019: Discharge Medications sent electronically to [address] [address] Because of atrial fibrillation with rapid ventricular response on this hospital stay, patient is no longer to take atenolol at home as this medication is replaced by new discharge prescription of metoprolol 100 mg twice a day as per [facility] animal skinner Dr. Mccray HTN (hypertension): -amlodipine 5 mg daily Nutrition -was on Total Parental Nutrition started 07/20/2019 -off Total Parental Nutrition as of 07/23/2009 -central line of the neck has been removed by 07/23/2019 -diabetic diet Type 2 diabetes mellitus with fci current use of insulin and without complications -Hgb A1c 6.9 05/2019 -Hold oral agents and utilize insulin per protocol while hospitalized -resume home dose diabetes medications on discharge Dyslipidemia: -Continue statin as outpatient Temporal arteritis: -Receives Actemra injections every 14 days as outpatient -hold off on Acterma (tocilizumab) injections as outpatient for history of Temporal arteritis until follow up with [facility] oncology on discussing cancer treatment medications -Primary Care Doctor appointment: 07/31/2019 8:40 AM Provider Mana Thompson DO Department [facility] [place] DVT prophylaxis: SCDs Discharge diagnosis Small bowel obstruction, status post partial Colon resection, Metastatic Breast Cancer (ER positive) to colon and possibly elsewhere of body, Rib lesions on imaging, right lung pleural effusion, Bilateral hydronephrosis, Lesion of bladd er, Acute renal failure on Chronic Kidney Disease stage 3 (acute renal failure is resolved), Acute Blood Loss Anemia, Atrial Fibrillation with Rapid Ventricular Response (resolved), Hypertension, Type 2 diabetes mellitus with fci current use of insulin and without complications Subjective EKG of heart rate of sinus rhythm of 85 beats per minute. no chest pain. no palpitations. breathing on room sir. no shortness of breath. no abdominal pain. abdominal midline julianna in place. patient reports urination and bowel movements. no dizziness. no headache. Review of Systems Review of Systems: All systems reviewed & are unremarkable except as noted in HPI & below Physical Exam Constitutional: WD/WN, vitals as above Eyes: PERRL, conjunctivae normal, anicteric sclerae EOM intact bilaterally ENMT: external ear and nose normal, oropharynx normal Neck: normal visual inspection Respiratory: normal respiratory effort, lungs clear to auscultation Cardiovascular: Rate/Rhythm: regular rate and + irregularly irregular Gastrointestinal (Abdomen): Inspection/Auscultation: normal bowel sounds Musculoskeletal: Head/Neck/Chest: normocephalic and head atraumatic Neurologic: PERRL, EOMI, accommodation nl, no face palsy, no dysarthria CN's II-XI intact bilaterally Psychiatric: A+Ox3, euthymic affect Results & Data Vital Signs (Past 12 Hours) Vital Signs Temp Pulse Pulse Resp BP Pulse Ox 07/26/19 09:19 85 07/26/19 08:10 37.5 C 112 H 19 152/70 H 94 07/25/19 23:10 37.1 C 76 14 147/71 H 96
--- NOTE | 2019-07-26 09:37 | Discharge Summary ---
Date of Service July 26, 2019 Admission HPI Per Admitting Provider 83-year-old female who presents the ED for evaluation of abdominal pain and vomiting. Patient was seen in the ED on 07/07 and diagnosed with gastritis. She was started on Nexium. Daughter is the bedside who provides some history. She reports the patient has been having some increased reflux symptoms over the past couple weeks. Patient was taking Pepcid without relief. After treatments received in the ED and started on the Nexium, patient had relief of symptoms for a few days. Symptoms however returned a couple of days ago. She has had increasing epigastric discomfort with nausea and several episodes of vomiting overnight. She describes emesis as bilious in nature. No hematemesis or coffee-ground emesis. Abdomen has become distended and semi-formed. She has been having several episodes of diarrhea, last normal bowel movement was 1 week ago. Denies bright red bleeding per rectum or dark tarry stools. No chest pain or shortness of breath. Denies lightheadedness, dizziness, diaphoresis, sync opal events. No fevers or chills. Denies any urinary symptoms. In the ED, CT ABD/pelvis is showing small bowel obstruction. Labs unremarkable. Patient is hemodynamically stable. She was given IVF, IV Zofran, IV morphine, GI cocktail. She is currently resting in bed, in no acute distress. Nausea and abdominal pain have improved. Admission Exam Per Admitting Provider WD/WN, vitals as above Eyes: PERRL, conjunctivae normal, anicteric sclerae ENMT: external ear and nose normal, oropharynx normal Respiratory: normal respiratory effort, lungs clear to auscultation Cardiovascular: Rate/Rhythm: regular rate and regular rhythm Vessels: normal peripheral pulses Extremities: no edema Gastrointestinal (Abdomen): Inspection/Auscultation: + abdomen distended (Semi-firm); + abnormal bowel sounds (Hyperactive) Percussion/Palpation: + abdomen tender (Epigastric); no hepatosplenomegaly Musculoskeletal: no cyanosis or clubbing, extremities motor strength 5/5 Skin: no rashes, warm and dry Neurologic: PERRL, EOMI, accommodation nl, no face palsy, no dysarthria Psychiatric: A+Ox3, euthymic affect Principal Diagnosis Small bowel obstruction, status post partial Colon resection, Metastatic Breast Cancer (ER positive) to colon and possibly elsewhere of body, Rib lesions on imaging, right lung pleural effusion, Bilateral hydronephrosis, Lesion of bladder, Acute renal failure on Chronic Kidney Disease stage 3 (acute renal failure is resolved), Acute Blood Loss Anemia, Atrial Fibrillation with Rapid Ventricular Response (resolved), Hypertension, Type 2 diabetes mellitus with fci current use of insulin and without complications Discharge Exam Constitutional WD/WN, vitals as above Eyes PERRL, conjunctivae normal, anicteric sclerae EOM intact bilaterally ENMT external ear and nose normal, oropharynx normal Neck normal visual inspection Respiratory normal respiratory effort, lungs clear to auscultation Cardiovascular Rate/Rhythm: regular rate and regular rhythm Gastrointestinal (Abdomen) Inspection/Auscultation: normal bowel sounds Musculoskeletal Head/Neck/Chest: normocephalic and head atraumatic Neurologic PERRL, EOMI, accommodation nl, no face palsy, no dysarthria CN's II-XI intact bilaterally Psychiatric A+Ox3, euthymic affect Discharge Data Allergies Allergy/AdvReac Type Severity Reaction Status Date / Time Influenza Virus Vaccines Allergy Mild SWELLING Verified 07/12/19 08:28 Consultations 07/12/19 10:40 Consult General Surgery Stat ED Decision to Admit Stat 07/12/19 12:46 Consult Urology Routine 07/12/19 13:13 Consult Gastroenterology Routine 07/18/19 18:37 Consult Coke Drawer Hand Routine 07/21/19 10:01 Consult Cardiology Routine 07/23/19 16:55 Consult Palliative Care Routine 07/23/19 18:18 Consult Oncology Routine Procedures Performed Operation Date: 07/17/19 16:00 Actual Procedures p Colonoscopy Biopsy Cytology - Monse Travis Operation Date: 07/18/19 12:20 Actual Procedures p Laparoscopic-Assisted Colon Resection Converted to Open Colon Resection(Not Applicable) - Donis Andino MD Operation Date: 07/23/19 13:00 Actual Procedures p Bronchoscopy Radiology(Bilateral) - Jeff De León MD Ordered Studies 07/12/19 08:21 CT abd pelvis IV con only Stat 07/19/19 06:56 CT abdomen wo con Urgent 07/23/19 14:12 CT chest wo con Routine Hospital Course (1) Small bowel obstruction: Small bowel obstruction, lesion of colon, status post partial Colon resection, -Status post colonoscopy, showing stricture of the colonic splenic flexure, biopsy performed -s/p partial Colon resection 07/19/2019 -patient to follow up in general surgery clinic with Dr. Andino in 1 week for staple removal Metastatic Breast Cancer (ER positive) to colon and possibly elsewhere of body, Rib lesions on imaging, right lung pleural effusion Rib lesions on imaging, right lung pleural effusion -History of Breast Cancer treated in the past -biopsy results of colon reveals metastatic breast cancer -patient is s/p bronchoscopy on 07/23/2019 of right lung infiltrate (bronchoscopy pathology: LUNG, RIGHT UPPER LOBE, BIOPSY: BENIGN RESPIRATORY MUCOSA WITH NONSPECIFIC ACUTE AND CHRONIC INFLAMMATION PRESENT )and while "She has a right- sided effusion. I can perform a thoracentesis of this, however, she is asymptomatic at this current time and saturating well on room air. Certainly if she has issues in the future, we can always proceed to do a thoracentesis. However tapping this fluid would not change her overall prognosis that she has stage IV cancer at this point. She also has some right upper lobe collapse, but again she is relatively asymptomatic. Would simply recommend repeat imaging in 6 weeks or so. She did have a long course of antibiotics that she has completed" as per pulmonary note on 07/25/2019 -As per [facility] oncology 07/24/2019: "Her tumor remains ER positive and so she would be a candidate for endocrine therapy. She could use an aromatase inhibitor again, potentially with a CDK inhibitor like palbociclib or abemaciclib. These agents are usually well tolerated and are oral, so she would not have to undergo chemotherapy. She was resistant to the idea of chemo but was open to endocrine therapy. Once she is stable for discharge, we can arrange for her to see Dr. Toribio in the office to discuss treatment." Bilateral hydronephrosis Lesion of bladder: -CT notes 1 cm bladder lesion and possible transverse colon and rib lesions, bilateral hydronephrosis; possible carcinomatosis as etiology for SBO -urine is negative for urothelial carcinoma -felix removed on 07/24/2019 -Patient's daughter have plan to re-schedule [facility] urology clinic follow up for further evaluation of hydronephrosis and suspected bladder lesion Acute renal failure on Chronic Kidney Disease stage 3 -renal function has returned to baseline Acute Blood Loss Anemia -patient has received blood transfusion on this admission -monitor hemoglobin Atrial Fibrillation with Rapid Ventricular Response -patient had been on amiodarone and metoprolol for the Afib in RVR which developed on 07/21/2019 -as of 07/23/2019 patient's heart rates appeared to be controlled by metoprolol and appears to have returned to sinus rhythm by 07/24/2019 or 07/25/2019 -07/26/2019: Discharge Medications sent electronically to [address] [id number] Because of atrial fibrillation with rapid ventricular response on this hospital stay, patient is no longer to take atenolol at home as this medication is replaced by new discharge prescription of metoprolol 100 mg twice a day as per [facility] affiliated assistant clinical nurse manager Dr. Mccray HTN (hypertension): -amlodipine 5 mg daily Nutrition -was on [employer] Parental Nutrition started 07/20/2019 -off Total Parental Nutrition as of 07/23/2009 -central line of the neck has been removed by 07/23/2019 -diabetic diet Type 2 diabetes mellitus with intermission coordinator current use of insulin and without complications -Hgb A1c 6.9 05/2019 -Hold oral agents and utilize insulin per protocol while hospitalized -resume home dose diabetes medications on discharge Dyslipidemia: -Continue statin as outpatient Temporal arteritis: -Receives Actemra injections every 14 days as outpatient -hold off on Acterma (tocilizumab) injections as outpatient for history of Temporal arteritis until follow up with [facility] oncology on discussing cancer treatment medications -Primary Care Doctor appointment: 07/31/2019 8:40 AM Provider Mana Thompson DO Department Family Practice [facility] DVT prophylaxis: SCDs Discharge diagnosis Small bowel obstruction, status post partial Colon resection, Metastatic Breast Cancer (ER positive) to colon and possibly elsewhere of body, Rib lesions on imaging, right lung pleural effusion, Bilateral hydronephrosis, Lesion of bladder, Acute renal failure on Chronic Kidney Disease stage 3 (acute renal failure is resolved), Acute Blood Loss Anemia, Atrial Fibrillation with Rapid Ventricular Response (resolved), Hypertension, Type 2 diabetes mellitus with fci current use of insulin and without complications Total Time Total Time Spent Total Time Spent (In Minutes): 40 minutes Total Time Includes: Examination of the Patient, Discharge Planning, Medication Reconciliation and Communication With Other Providers Discharge Plan Discharge Items Patient Disposition: Home - Home Health Services Reason For Visit: SBO Discharge Diagnosis: Small bowel obstruction, status post partial Colon resection, Metastatic Breast Cancer (ER positive) to colon and possibly elsewhere of body, Rib lesions on imaging, right lung pleural effusion, Bilateral hydronephrosis, Lesion of bladder, Acute renal failure on Chronic Kidney Disease stage 3 (acute renal failure is resolved), Acute Blood Loss Anemia, Atrial Fibrillation with Rapid Ventricular Response (resolved), Hypertension, Type 2 diabetes mellitus with intermission coordinator current use of insulin and without complications Condition on Discharge: Good Activity: Per Instructions section Lifting: No more than 10 pounds Bathing Comment: may shower Exercise/Sports: Wait until after follow-up appointment Non-emergency contact: Primary Care Provider Call non-emergency contact if: you have any medication questions, your symptoms worsen, your pain is not controlled, your pain is worsening, your pain is unusual for you, you have a fever, your temperature is above 101.5, your wound has increased redness, your wound has increased drainage and your wound pain has increased Follow-up/Referrals: Donis Andino MD [Surgeon] - (Please call to schedule follow up in clinic within 1 week for post operative follow up and staple removal) Mana Thompson DO [Primary Care Provider] - Diet: Carb Consistent or DM2 Addtl Attending Provider Instructions: Discharge Medications sent electronically to [address] [id number] Because of atrial fibrillation with rapid ventricular response, patient is no longer to take atenolol as this medication is replaced by new discharge prescription of metoprolol 100 mg twice a day as per [facility] affiliated assistant clinical nurse manager Dr. Mccray Primary Care Doctor appointment: 07/31/2019 8:40 AM Provider Mana Thompson DO Department [facility] hold off on Acterma (tocilizumab) injections as outpatient for history of Temporal arteritis until follow up with [facility] oncology on discussing cancer treatment medications patient will need to follow up with associated [facility] groups As per [facility] oncology 07/24/2019: "Her tumor remains ER positive and so she would be a candidate for endocrine therapy. She could use an aromatase inhibitor again, potentially with a CDK inhibitor like palbociclib or abemaciclib. These agents are usually well tolerated and are oral, so she would not have to undergo chemotherapy. She was resistant to the idea of chemo but was open to endocrine therapy. Once she is stable for discharge, we can arrange for her to see Dr. Toribio in the office to discuss treatment [facility] Address: [address], [place] [address] [facility] general surgery: patient to follow up in general surgery linic with Dr. Andino in 1 week for staple removal [facility] urology services for further evaluation of hydronephrosis and suspected bladder lesion clinic locations for [facility] Urology or General Surgery locations include: [facility] [address], [place] [id number] Addtl Silverer Provider Instructions: patient is s/p bronchoscopy on 07/23/2019 of right lung infiltrate (bronchoscopy pathology: LUNG, RIGHT UPPER LOBE, BIOPSY: BENIGN RESPIRATORY MUCOSA WITH NONSPECIFIC ACUTE AND CHRONIC INFLAMMATION PRESENT )and while "She has a right- sided effusion. I can perform a thoracentesis of this, however, she is asymptomatic at this current time and saturating well on room air. Certainly if she has issues in the future, we can always proceed to do a thoracentesis. However tapping this fluid would not change her overall prognosis that she has stage IV cancer at this point. She also has some right upper lobe collapse, but again she is relatively asymptomatic. Would simply recommend repeat imaging in 6 weeks or so. She did have a long course of antibiotics that she has completed" as per pulmonary note on 07/25/2019 by Jeff De León Pending Studies at Discharge: No Stand-Alone Forms: My [facility], Smoking Cessation Medications and DC Order Prescriptions: New metoprolol tartrate 100 mg Tablet 100 mg PO BID 30 Days Qty: 60 RF: 0 Continued multivitamin Tablet 1 tab PO QAM RF: 0 alprazolam [Xanax] 0.25 mg Tablet 0.25 mg PO DAILY PRN (Reason: Anxiety) RF: 0 ascorbic acid (vitamin C) [Vitamin C] 500 mg Tablet 500 mg PO QAM RF: 0 escitalopram oxalate [Lexapro] 10 mg Tablet 10 mg PO QAM RF: 0 rosuvastatin [Crestor] 20 mg Tablet 20 mg PO QAM RF: 0 calcium carbonate-vitamin D3 [Os-Arcadio 500 + D3] 500 mg(1,250mg) -200 unit Tablet 1 tab PO BID RF: 0 famotidine [Pepcid] 20 mg Tablet 20 mg PO BID RF: 0 cranberry 400 mg Capsule 400 mg PO QAM RF: 0 Tradjenta 5 mg Tablet 5 mg PO QAM RF: 0 ondansetron HCl [Zofran] 4 mg Tablet 4 mg PO Q6H PRN (Reason: Nausea) RF: 0 latanoprost 0.005 % Drops 1 drp OPHTHALMIC (EYE) PM RF: 0 amlodipine 5 mg Tablet 5 mg PO DAILY RF: 0 tramadol 50 mg Tablet 50 mg PO Q8H PRN (Reason: Pain) RF: 0 amitriptyline 25 mg Tablet 25 mg PO HS RF: 0 esomeprazole magnesium [Nexium] 20 mg Capsule,Delayed Release(Dr/Ec) 20 mg PO DAILY RF: 0 Discontinued atenolol [Tenormin] 50 mg Tablet 50 mg PO BID RF: 0 Actemra 80 mg/4 mL (20 mg/mL) Solution 162 mg IV .Q OTHER WEEK RF: 0 Discharge Orders: Discharge Order (Routine); Ordered 07/26/19 Ordered By: Shelton Armstrong Admission Data Admit Date/Time: 07/12/19 11:29 Attending Provider: Shelton Armstrong Admit Provider: Vera Banks Primary Care Provider: Mana Thompson Other Providers: Donis Andino ; Vera Banks ; Ruperto Diamond ; Gordon Negron ; Kennedy Prado ; Ivan Moon ; Dany Mccray ; Grey Perez ; David Timmons ; ChadMarkos frank ; Steven Erazo ; Bijal Gardner ; Eryn Banda ; Alberto Mendez ; Louise Dickey ; Mannie Brandt Other Interventions: Discharge Summary Assessment (RN) Last Done: 07/17/19 10:40
--- NOTE | 2019-07-27 05:54 | Electrocardiogram Report ---
Test Reason : Blood Pressure : / mmHG Vent. Rate : 085 BPM Atrial Rate : 085 BPM P-R Int : 150 ms QRS Dur : 084 ms QT Int : 404 ms P-R-T Axes : -08 -05 043 degrees QTc Int : 480 ms Normal sinus rhythm Prolonged QT When compared with ECG of 24-JUL-2019 12:34, No significant change was found Confirmed by Jay Marcum ([id number] on 07/27/2019 5:53:59 AM Referred By: REFERRED SELF Confirmed By:Jay Marcum
== END 2019-07-26 13:05 | disposition home health service (06) | DRG 330 ==
LOC: ED 07:50 → 3W 11:29 → SUATTDRO 11:29 → 3W 12:40 → 1E 07-18 18:29 → 3N 07-25 12:52

== ENCOUNTER 2019-10-01 13:27 | Inpatient (IN) ==
[2019-10-01] MEDS ORDERED: CEFEPIME 2,000 MG/20 ML VIAL IV STA (13:44)
[2019-10-01] MEDS ORDERED: SODIUM CHLORIDE 0.9% 1000ML 1,000 ML IV SCH (13:45)
[2019-10-01 14:16] LABS: Nucleated RBC # (auto) 0.02 K/uL (0-0); Nucleated RBC % (auto) 0.7 %
[2019-10-01 14:21] LABS: Hematocrit (blood only) 26.7 % (37-47); Hemoglobin 9.1 g/dL (12.0-16.0); Mean Corpuscular Hemoglobin 32.4 pg (25-34); Mean Corpuscular Hgb Conc 34.1 g/dL (32-36); Mean Platelet Volume 10.2 fL (7.4-10.4); Platelet Count 83 K/uL (130-400); RDW Coefficient of Variation 13.8 % (11.5-14.5); RDW Standard Deviation 44.3 fL (36.4-46.3); Red Blood Count 2.81 M/uL (4.2-5.4); White Blood Count 2.66 K/uL (4.8-10.8)
[2019-10-01 14:32] LABS: Albumin Level 3.7 gm/dl (3.4-5.0); BUN Creatinine Ratio 13.8 (10-20); Calcium 8.8 mg/dl (8.5-10.1); Creatinine Clr Calc Pharmacy 27.5 ml/min; Est GFR (African American) 42.4; Est GFR (Non-African American) 36.5; Potassium 3.8 mmol/L (3.5-5.1)
[2019-10-01 14:34] LABS: Albumin Globulin Ratio 1.4 (0.9-2); Bilirubin,Total 0.6 mg/dl (0.2-1); Globulin 2.6 gm/dl (2.5-4.0); Total Protein 6.3 gm/dl (6.4-8.2)
[2019-10-01 14:42] LABS: Basophils # (auto) 0.02 K/uL (0-0.2); Basophils % (auto) 0.8 %; Eosinophils # (auto) 0.05 K/uL (0-0.5); Eosinophils % (auto) 1.9 %; Immature Granulocytes # (auto) 0.01 K/uL (0.00-0.02); Immature Granulocytes % (auto) 0.4 %; Lymphocytes # (auto) 0.37 K/uL (1.2-3.4); Lymphocytes % (auto) 13.9 %; Monocytes # (auto) 0.35 K/uL (0.11-0.59); Monocytes % (auto) 13.2 %; Neutrophils # (auto) 1.86 K/uL (1.4-6.5); Neutrophils % (auto) 69.8 %
[2019-10-01 14:54] LABS: Influenza A virus by PCR Neg for Influ A (Neg); Influenza B virus by PCR Neg for Influ B (Neg)
[2019-10-01 14:58] LABS: Appearance Urine Clear (Clear); Bacteria Urine Automated Negative (Negative); Bilirubin Urine Negative (Negative); Blood Urine Trace (Negative); Cast Urine Automated 0 /lpf (0-5); Color Urine Yellow; Epithelial Cell Urine Auto 0-5 /lpf (0-5); Glucose Urine UA Negative (Negative); Ketones Urine Negative (Negative); Leukocyte Esterase Urine Negative (Negative); Nitrite Urine Negative (Negative); Protein Urine Negative (Negative); RBC Urine Automated 0-4 /hpf (0-4); Specific Gravity Urine 1.012 (1.000-1.030); Urobilinogen Urine Negative (Negative)
--- NOTE | 2019-10-01 14:58 | Emergency Department Note ---
History of Present Illness General Chief complaint: Fever Stated complaint: FEVER, DRY COUGH, WHITE BLOOD COUNT Time Seen by Provider: 10/01/19 13:39 Source: patient Mode of arrival: ambulatory Limitations: no limitations History of Present Illness Provider complaint: fever, cough Onset (ago): day(s) 2 Location: chest Severity: moderate Maximum Pain Intensity: 5 This patient is an 83-year-old female who presents to the emergency department with complaints of fever up to 102 degrees, cough and weakness. Patient has a history of breast cancer that has recently relapsed. She is currently on chemotherapy treatment with Dr. Fong through the cancer center. Patient's daughter explains that she recently had a bowel obstruction and an intra- abdominal mass that was resected after Namita. In general she has healed very well. Patient has not taken any Tylenol prior to arrival although her daughter states she did drink 2 large containers of ice water. She denies any sputum production or pain in the chest. She denies any vomiting or abdominal pain. Patient states she is urinating without difficulty. Home Medications Home Medications Medication Instructions Recorded Confirmed Type alprazolam [Xanax] 0.25 mg PO DAILY PRN 03/28/18 10/01/19 History ascorbic acid (vitamin C) [Vitamin 500 mg PO QAM 03/28/18 10/01/19 History C] calcium carbonate-vitamin D3 1 tab PO BID 03/28/18 10/01/19 History [Os-Arcadio 500 + D3] escitalopram oxalate [Lexapro] 10 mg PO QAM 03/28/18 10/01/19 History multivitamin 1 tab PO QAM 03/28/18 10/01/19 History rosuvastatin [Crestor] 20 mg PO QAM 03/28/18 10/01/19 History Tradjenta 5 mg PO QAM 07/07/19 10/01/19 History cranberry 400 mg PO QAM 07/07/19 10/01/19 History famotidine [Pepcid] 20 mg PO BID 07/07/19 10/01/19 History amitriptyline 25 mg PO HS 07/12/19 10/01/19 History amlodipine 5 mg PO DAILY 07/12/19 10/01/19 History esomeprazole magnesium [Nexium] 20 mg PO DAILY 07/12/19 10/01/19 History latanoprost 1 drp OPHTHALMIC (EYE) PM 12/28/19 03/18/20 History ondansetron HCl [Zofran] 4 mg PO Q6H PRN 07/12/19 10/01/19 History tramadol 50 mg PO Q8H PRN 07/12/19 10/01/19 History metoprolol tartrate 100 mg PO DAILY 10/01/19 10/01/19 History Allergies Allergy/AdvReac Type Severity Reaction Status Date / Time Influenza Virus Vaccines Allergy Mild SWELLING Verified 10/01/19 14:14 Past Med/Surg History Medical History Acute hypoxemic respiratory failure Anxiety Arthritis Atrial tachycardia Cataracts, bilateral CKD (chronic kidney disease), stage III DM type 2 (diabetes mellitus, type 2) Dyslipidemia Goals of care, counseling/discussion HTN (hypertension) HX: breast cancer Metastatic breast cancer S/P admission to ICU (intensive care unit) Temporal arteritis Surgical History H/O right mastectomy Jun 2018 History of appendectomy History of cataract surgery S/P LIZBETH-BSO Family History Mother Diabetes Social History Preferred Language: Montenegrin Communication Ability: Effective Manager Skilled Required: No Beliefs That Will Affect Care: None marital status: Current Living Situation: Spouse Feels Safe at Home: Yes Smoking Status: Never smoker Hx Alcohol Use: No Hx Substance Use: No Review of Systems See HPI for pertinent positives & negatives. and A total of 10 systems reviewed and were otherwise negative Physical Exam Vital Signs Vital Signs - 24 hr 10/01/19 13:31 10/01/19 14:14 10/01/19 14:24 Temperature 36.9 C Temperature Source Oral Pulse Rate 81 Pulse Rate [Right Finger] 88 Respiratory Rate 20 22 Blood Pressure 119/78 Blood Pressure [Left Arm] 150/74 H Blood Pressure Mean 91 Blood Pressure Mean [Left Arm] 99 Pulse Oximetry 97 100 99 Oxygen Delivery Method Room Air Room Air Room Air Sepsis Recent Fever Within 48 Hours Yes Sepsis New/Unexplained Change in Mental Status No Sepsis Action Taken by Nursing No Action Required 10/01/19 15:31 10/01/19 16:30 Temperature Temperature Source Pulse Rate Pulse Rate [Right Finger] 77 79 Respiratory Rate 20 20 Blood Pressure Blood Pressure [Left Arm] 141/67 H 138/69 Blood Pressure Mean Blood Pressure Mean [Left Arm] 91 92 Pulse Oximetry 100 98 Oxygen Delivery Method Room Air Room Air Sepsis Recent Fever Within 48 Hours Sepsis New/Unexplained Change in Mental Status Sepsis Action Taken by Nursing Vital signs reviewed. General: Elderly, chronically ill-appearing 83-year-old female, in no significant distress. HEENT: No scleral icterus, edentulous, dry mucous membranes, PERRLA, neck supple. Cardiovascular: Regular rate and rhythm, no extra sounds. Pulmonary: Clear to auscultation bilaterally, normal work of breathing. Abdomen: Soft, nontender, nondistended, positive bowel sounds. Musculoskeletal: Atraumatic, no peripheral edema. Neurologic: Patient awake alert and oriented x 3. Skin: Warm, dry, no rash Course Administered Medications Sodium Chloride (Nss 1000ml) 1,000 mls @ 125 mls/hr IV .Q8H NENA Stop: 10/31/19 13:44 Last Admin: 10/01/19 14:06 Dose: 125 mls/hr Documented by: [id number] Discontinued Medications Cefepime HCl (Maxipime) 2,000 mg in 20 mls @ 5 mls/min IV NOW STA; Protocol Stop: 10/01/19 13:47 Last Admin: 10/01/19 14:06 Dose: 5 mls/min Documented by: [id number] Medical Decision Making Medical Records Attestation: I reviewed the patient's medical records. Home Medications Current Medication List: was personally reviewed by me Laboratory Data Attestation: I reviewed the patient's lab results. Result diagrams: 10/01/19 14:05 10/01/19 14:05 Lab Results 10/01/19 10/01/19 10/01/19 Range/Units 14:05 14:05 14:05 WBC 2.66 L (4.8-10.8) K/uL RBC 2.81 L (4.2-5.4) M/uL Hgb 9.1 L (12.0-16.0) g/dL Hct 26.7 L (37-47) % MCV 95.0 (80-100) fL MCH 32.4 (25-34) pg MCHC 34.1 (32-36) g/dL RDW Std Deviation 44.3 (36.4-46.3) fL RDW Coeff of Jennifer 13.8 (11.5-14.5) % Plt Count 83 L D (130-400) K/uL MPV 10.2 (7.4-10.4) fL Immature Gran % (Auto) 0.4 % Neut % (Auto) 69.8 % Lymph % (Auto) 13.9 % [place] % (Auto) 13.2 % Eos % (Auto) 1.9 % Baso % (Auto) 0.8 % Immature Gran # (Auto) 0.01 (0.00-0.02) K/uL Neut # (Auto) 1.86 (1.4-6.5) K/uL Lymph # (Auto) 0.37 L (1.2-3.4) K/uL [place] # (Auto) 0.35 (0.11-0.59) K/uL Eos # (Auto) 0.05 (0-0.5) K/uL Baso # (Auto) 0.02 (0-0.2) K/uL Absolute Nucleated RBC 0.02 H (0-0) K/uL Nucleated RBC % (auto) 0.7 % Sodium 135 L (136-145) mmol/L Potassium 3.8 (3.5-5.1) mmol/L Chloride 102 (98-107) mmol/L Carbon Dioxide 27 (21-32) mmol/L Anion Gap 6.0 (3-11) BUN 18 (7-18) mg/dl Creatinine 1.34 H (0.6-1.2) mg/dl Est Cr Clr Drug Dosing 27.5 ml/min Est GFR ( Amer) 42.4 Est GFR (Non-Af Amer) 36.5 BUN/Creatinine Ratio 13.8 (10-20) Glucose 148 H (70-99) mg/dl Lactate 1.0 (0.4-2.0) mmol/L Calcium 8.8 (8.5-10.1) mg/dl Total Bilirubin 0.6 (0.2-1) mg/dl AST 26 (15-37) U/L ALT 19 (12-78) U/L Alkaline Phosphatase 45 (45-117) U/L Total Protein 6.3 L (6.4-8.2) gm/dl Albumin 3.7 (3.4-5.0) gm/dl Globulin 2.6 (2.5-4.0) gm/dl Albumin/Globulin Ratio 1.4 (0.9-2) Procalcitonin (0-0.5) ng/ml Urine Color Urine Appearance (Clear) Urine pH (4.5-7.5) Ur Specific [place] (1.000-1.030) Urine Protein (Negative) Urine Glucose (UA) (Negative) Urine Ketones (Negative) Urine Blood (Negative) Urine Nitrite (Negative) Urine Bilirubin (Negative) Urine Urobilinogen (Negative) Ur Leukocyte Esterase (Negative) Urine WBC (Auto) (0-5) /hpf Urine RBC (Auto) (0-4) /hpf U Hyaline Cast (Auto) (0-5) /lpf U Epithel Cells (Auto) (0-5) /lpf Urine Bacteria (Auto) (Negative) Influenza Type A (PCR) (Neg) Influenza Type B (PCR) (Neg) 10/01/19 10/01/19 10/01/19 Range/Units 14:05 14:06 14:15 WBC (4.8-10.8) K/uL RBC (4.2-5.4) M/uL Hgb (12.0-16.0) g/dL Hct (37-47) % MCV (80-100) fL MCH (25-34) pg MCHC (32-36) g/dL RDW Std Deviation (36.4-46.3) fL RDW Coeff of Jennifer (11.5-14.5) % Plt Count (130-400) K/uL MPV (7.4-10.4) fL Immature Gran % (Auto) % Neut % (Auto) % Lymph % (Auto) % [place] % (Auto) % Eos % (Auto) % Baso % (Auto) % Immature Gran # (Auto) (0.00-0.02) K/uL Neut # (Auto) (1.4-6.5) K/uL Lymph # (Auto) (1.2-3.4) K/uL [place] # (Auto) (0.11-0.59) K/uL Eos # (Auto) (0-0.5) K/uL Baso # (Auto) (0-0.2) K/uL Absolute Nucleated RBC (0-0) K/uL Nucleated RBC % (auto) % Sodium (136-145) mmol/L Potassium (3.5-5.1) mmol/L Chloride (98-107) mmol/L Carbon Dioxide (21-32) mmol/L Anion Gap (3-11) BUN (7-18) mg/dl Creatinine (0.6-1.2) mg/dl Est Cr Clr Drug Dosing ml/min Est GFR ( Amer) Est GFR (Non-Af Amer) BUN/Creatinine Ratio (10-20) Glucose (70-99) mg/dl Lactate (0.4-2.0) mmol/L Calcium (8.5-10.1) mg/dl Total Bilirubin (0.2-1) mg/dl AST (15-37) U/L ALT (12-78) U/L Alkaline Phosphatase (45-117) U/L Total Protein (6.4-8.2) gm/dl Albumin (3.4-5.0) gm/dl Globulin (2.5-4.0) gm/dl Albumin/Globulin Ratio (0.9-2) Procalcitonin < 0.05 (0-0.5) ng/ml Urine Color Yellow Urine Appearance Clear (Clear) Urine pH 8.0 H (4.5-7.5) Ur Specific [place] 1.012 (1.000-1.030) Urine Protein Negative (Negative) Urine Glucose (UA) Negative (Negative) Urine Ketones Negative (Negative) Urine Blood Trace H (Negative) Urine Nitrite Negative (Negative) Urine Bilirubin Negative (Negative) Urine Urobilinogen Negative (Negative) Ur Leukocyte Esterase Negative (Negative) Urine WBC (Auto) 1-5 (0-5) /hpf Urine RBC (Auto) 0-4 (0-4) /hpf U Hyaline Cast (Auto) 0 (0-5) /lpf U Epithel Cells (Auto) 0-5 (0-5) /lpf Urine Bacteria (Auto) Negative (Negative) Influenza Type A (PCR) Neg for Influ A (Neg) Influenza Type B (PCR) Neg for Influ B (Neg) Imaging Data Attestation: I personally reviewed and interpreted this imaging study as follows: Radiologist's Impression: XR chest 1V portable HISTORY: fever, cough, breast CA COMPARISON: Chest 07/23/2019. FINDINGS: There is a new right lower lobe airspace opacity. No pneumothorax. No pleural effusions. The heart is normal in size. The left lung is clear. IMPRESSION: A new right lower lobe airspace opacity consistent with a pneumonia. Recommend follow-up to ensure resolution. ACT 112: Negative or not required by law. Electronically signed by: Waqas Ferrer M.D. 10/01/2019 3:15 PM Dictated: 10/01/19 1515 Transcribed: 10/01/19 151 ECG Data Attestation: I personally reviewed and interpreted this ECG as follows: Indication: + SOB/dyspnea Rhythm: + normal sinus ECG Ragland: + Normal ECG ST segments: + Nonspecific ST abnormalities Comparison ECG Date: from (07-26-19) Change: the following changes noted (QTc is now 450, previously 480) Blood Pressure Blood Pressure Findings: Normal blood pressure Blood Pressure Disposition: did not require urgent referral MDM Narrative This patient was evaluated and appeared to be in no significant distress. IV access was obtained and laboratory work was drawn. The patient was placed on the manager user experience and noted to be in a normal sinus rhythm. Blood cultures were obtained and are pending. Patient's lactate is normal. Patient is leukopenic today but not neutropenic. Chest x-ray reveals a right basilar infiltrate consistent with pneumonia. Patient was given 2 g of IV cefepime. She has remained afebrile and is able to maintain her oxygen saturations on room air. Given her immunocompromise status on chemotherapy for metastatic breast cancer, the patient will be evaluated by the [facility] for further management. Impression & Plan Pneumonia, Breast cancer, Fever Discharge Plan Visit Data Chief Complaint: Fever Stated Complaint: FEVER, DRY COUGH, WHITE BLOOD COUNT ED Provider: Dorota Marie Discharge Problem: Pneumonia, Breast cancer, Fever Forms Stand Alone Forms: [employer] Prescriptions Prescriptions: No Action multivitamin Tablet 1 tab PO QAM RF: 0 alprazolam [Xanax] 0.25 mg Tablet 0.25 mg PO DAILY PRN (Reason: Anxiety) RF: 0 ascorbic acid (vitamin C) [Vitamin C] 500 mg Tablet 500 mg PO QAM RF: 0 escitalopram oxalate [Lexapro] 10 mg Tablet 10 mg PO QAM RF: 0 rosuvastatin [Crestor] 20 mg Tablet 20 mg PO QAM RF: 0 calcium carbonate-vitamin D3 [Os-Arcadio 500 + D3] 500 mg(1,250mg) -200 unit Tablet 1 tab PO BID RF: 0 famotidine [Pepcid] 20 mg Tablet 20 mg PO BID RF: 0 cranberry 400 mg Capsule 400 mg PO QAM RF: 0 Tradjenta 5 mg Tablet 5 mg PO QAM RF: 0 ondansetron HCl [Zofran] 4 mg Tablet 4 mg PO Q6H PRN (Reason: Nausea) RF: 0 latanoprost 0.005 % Drops 1 drp OPHTHALMIC (EYE) PM RF: 0 amlodipine 5 mg Tablet 5 mg PO DAILY RF: 0 tramadol 50 mg Tablet 50 mg PO Q8H PRN (Reason: Pain) RF: 0 amitriptyline 25 mg Tablet 25 mg PO HS RF: 0 esomeprazole magnesium [Nexium] 20 mg Capsule,Delayed Release(Dr/Ec) 20 mg PO DAILY RF: 0 metoprolol tartrate 100 mg tablet 100 mg PO DAILY RF: 0 Discharge Problem: Pneumonia Qualifiers: Pneumonia type: due to unspecified organism Laterality: right Lung location: lower lobe of lung Qualified Code(s): J18.9 - Pneumonia, unspecified organism Breast cancer Qualifiers: Breast location: unspecified site of breast Estrogen receptor status: unspecified Patient sex: female Laterality: unspecified laterality Qualified Code(s): C50.919 - Malignant neoplasm of unspecified site of unspecified female breast Fever Qualifiers: Fever type: due to other condition Qualified Code(s): R50.81 - Fever presenting with conditions classified elsewhere
--- NOTE | 2019-10-01 15:17 | XRay Report ---
XR chest 1V portable HISTORY: fever, cough, breast CA COMPARISON: Chest 07/23/2019. FINDINGS: There is a new right lower lobe airspace opacity. No pneumothorax. No pleural effusions. Th e heart is normal in size. The left lung is clear. IMPRESSION: A new right lower lobe airspace opacity consistent with a pneumonia. Recommend follow-up to ensure re solution. ACT 112: Negative or not required by law. Electronically signed by: Waqas Ferrer M.D. 10/01/2019 3:15 PM
--- NOTE | 2019-10-01 16:35 | History & Physical Report ---
Date of Service October 01, 2019 Assessment & Plan (1) Neutropenic fever: Was just neutropenic yesterday and recent fever overnight. Empiric coverage with cefepime and vancomycin in light of pneumonia on chest x-ray. Despite procalcitonin negative, continue antibiotics for now secondary to high risk of mortality without them. She is not septic. Continue to monitor for response. Blood and sputum cultures pending. (2) Pneumonia: Cefepime and vancomycin as above, renal dosing (3) Pancytopenia: Secondary to chemotherapy, exacerbated by illness. Trend in a.m. Neutropenic precautions. (4) Metastatic breast cancer: On Ibrance, last dose was 1 week ago. Second cycle was set to start yesterday, however held by Dr. Toribio (5) Paroxysmal atrial fibrillation: Currently in sinus rhythm. Continue metoprolol 100 mg twice daily per home regimen. Patient is not anticoagulation due to postoperative blood loss anemia and overall bleeding risks with noted rectus sheath hematoma observed on CT during her previous admission 2 months ago. 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 (6) Hypertension: Around goal, continue amlodipine 5 mg daily per home regimen. (7) DM type 2 (diabetes mellitus, type 2): Hold outpatient medications and use basal bolus insulin while hospitalized. (8) Acute renal failure: Likely secondary to prerenal azotemia related to infection. IV fluids overnight with repeat BMP in a.m. (9) DVT prophylaxis: SCDs, DVT chemoprophylaxis contraindicated in setting of thrombocytopenia DO NOT RESUSCITATE as discussed with the patient and her daughter on admission Disposition-to telemetry Bing Lowe DO [facility] Hospitalist History of Present Illness Primary Care Provider: Mana Thompson DO 83-year-old female with metastatic breast cancer on Ibrance chemotherapy presented to the emergency room with fever, malaise, and shortness of breath. She is on adjuvant chemotherapy per Dr. Toribio, her oncologist and finished her first 21-day cycle 1 week ago. 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 Her last dose was yesterday given as a subcutaneous injection. On 09/24 she was found to be significantly neutropenic with a white blood cell count of 0.85, H&H of 9.6/30 and a platelet count of 44. At that time she was not sick with any symptoms. Over the last couple of days she reports a fever of 101 F. She reports a nonproductive cough and denies hemoptysis. She denies any GI symptoms, headache, neck stiffness, chest pain. She has a chronic rhinitis which is not significantly been different from baseline. She reports no other head or neck symptoms. She denies any GI symptoms including no diarrhea, constipation or blood per rectum. She has been feeling malaise but has not been significantly weak and she has been keeping up with her oral intake of fluids and food. She lives with her at home. Work-up in the ER included a CBC revealing a white blood cell count of 2.66 with 70% neutrophils, H/H of 9.1/27 and a platelet count of 83. Yesterday lab work revealed 31% neutrophils with a white blood cell count of 1.33. Additional blood work included a BMP revealing a mildly increased creatinine of 1.34 with a baseline of 1. Sodium is 135 and electrolytes are otherwise normal. Procalcitonin was negative. Urinalysis was negative and flu PCR was negative imaging included a chest x-ray showing a new right lower lobe airspace opacity consistent with a pneumonia. Blood cultures were drawn and pending. An EKG is pending. She is oxygenating well on room air and was transferred to telemetry for further monitoring and treatment. She did receive 2 g of cefepime in the ER and was started on IVF. The patient is not septic. Allergies Allergy/AdvReac Type Severity Reaction Status Date / Time Influenza Virus Vaccines Allergy Mild SWELLING Verified 10/01/19 14:14 Home Medications Home Medications Medication Instructions Recorded Confirmed Type alprazolam [Xanax] 0.25 mg PO DAILY PRN 03/28/18 10/01/19 History ascorbic acid (vitamin C) [Vitamin 500 mg PO QAM 03/28/18 10/01/19 History C] calcium carbonate-vitamin D3 1 tab PO BID 03/28/18 10/01/19 History [Os-Arcadio 500 + D3] escitalopram oxalate [Lexapro] 10 mg PO QAM 03/28/18 10/01/19 History multivitamin 1 tab PO QAM 03/28/18 10/01/19 History rosuvastatin [Crestor] 20 mg PO QAM 03/28/18 10/01/19 History Tradjenta 5 mg PO QAM 07/07/19 10/01/19 History cranberry 400 mg PO QAM 07/07/19 10/01/19 History amitriptyline 25 mg PO HS 07/12/19 10/01/19 History amlodipine 5 mg PO DAILY 07/12/19 10/01/19 History esomeprazole magnesium [Nexium] 20 mg PO DAILY 07/12/19 10/01/19 History latanoprost 1 drp OPHTHALMIC (EYE) PM 07/12/19 10/01/19 History ondansetron HCl [Zofran] 4 mg PO Q6H PRN 07/12/19 10/01/19 History tramadol 50 mg PO Q8H PRN 07/12/19 10/01/19 History esomeprazole magnesium [Nexium] 20 mg PO DAILY 10/01/19 10/01/19 History metoprolol tartrate 100 mg PO BID 10/01/19 10/01/19 History oxycodone-acetaminophen [Percocet] 1 tab PO Q8H PRN 10/01/19 10/01/19 History palbociclib [Ibrance] 100 mg PO DAILY 10/01/19 10/01/19 History Past Med/Surg History Medical History Acute hypoxemic respiratory failure Anxiety Arthritis Atrial tachycardia Cataracts, bilateral CKD (chronic kidney disease), stage III DM type 2 (diabetes mellitus, type 2) Dyslipidemia Goals of care, counseling/discussion HTN (hypertension) HX: breast cancer Metastatic breast cancer S/P admission to ICU (intensive care unit) Temporal arteritis Surgical History H/O right mastectomy Jun 2018 History of appendectomy History of cataract surgery S/P partial colectomy Jul 2019 S/P LIZBETH-BSO Family History Mother Diabetes Social History Preferred Language: Togolese Communication Ability: Effective Charge Entry Clerk Required: No Beliefs That Will Affect Care: None marital status: Current Living Situation: Spouse Feels Safe at Home: Yes Smoking Status: Never smoker Hx Alcohol Use: No Hx Substance Use: No Review of Systems Review of Systems: All systems reviewed & are unremarkable except as noted in HPI & below Physical Exam Physical Exam: CONSTITUTIONAL: WNWD, vitals as above, generally well- appearing EYES: EOMI bilaterally, PERRL, normal conjunctivae, no scleral icterus ENT: external ear and nose normal, oropharynx clear, no maxillary or ethmoid sinus tenderness NECK: trachea midline, no lymphadenopathy RESPIRATORY: clear to auscultation bilaterally, very mild rhonchi at right base, no rales or wheezes, normal respiratory effort, not requiring supplemental oxygen. CARDIOVASCULAR: regular rate and rhythm, S1 and 2 heard without murmurs, gallops or rubs, no JVD, no peripheral edema GASTROINTESTINAL: normal bowel sounds, soft, nontender, nondistended MUSCULOSKELETAL: strength 5/5 throughout, head is normocephalic and atraumatic SKIN: warm and dry NEUROLOGIC: No facial palsy, no dysarthria. CN 2-12 grossly intact, no sensory deficit, normal cognition, normal speech, no gross focal deficits. PSYCHIATRIC: alert cooperative and oriented to person, place and time. LYMPHATIC: no LAD Results & Data Vital Signs (Past 12 Hours) Vital Signs Temp Pulse Pulse Resp BP BP Pulse Ox 10/01/19 16:30 79 20 138/69 98 10/01/19 15:31 77 20 141/67 H 100 10/01/19 14:24 88 22 150/74 H 99 10/01/19 14:14 100 10/01/19 13:31 36.9 C 81 20 119/78 97 Laboratory Results Short CBC 10/01/19 Range/Units 14:05 WBC 2.66 L (4.8-10.8) K/uL Hgb 9.1 L (12.0-16.0) g/dL Hct 26.7 L (37-47) % Plt Count 83 L D (130-400) K/uL BMP 10/01/19 14:05 Sodium 135 L Potassium 3.8 Chloride 102 Carbon Dioxide 27 BUN 18 Creatinine 1.34 H Glucose 148 H Calcium 8.8 Liver Function 10/01/19 Range/Units 14:05 Total Bilirubin 0.6 (0.2-1) mg/dl AST 26 (15-37) U/L ALT 19 (12-78) U/L Alkaline Phosphatase 45 (45-117) U/L Albumin 3.7 (3.4-5.0) gm/dl Urine 10/01/19 Range/Units 14:15 Urine Color Yellow Urine Appearance Clear (Clear) Urine pH 8.0 H (4.5-7.5) Ur Specific [place] 1.012 (1.000-1.030) Urine Protein Negative (Negative) Urine Glucose (UA) Negative (Negative) Diagnostic Findings XR chest 1V portable HISTORY: fever, cough, breast CA COMPARISON: Chest 07/23/2019. FINDINGS: There is a new right lower lobe airspace opacity. No pneumothorax. No pleural effusions. The heart is normal in size. The left lung is clear. IMPRESSION: A new right lower lobe airspace opacity consistent with a pneumonia. Recommend follow-up to ensure resolution. Medications Administered cefepine 2gm IV NSS Code Status & VTE Plan Code Status DNR VTE Prophylaxis Plan VTE Prophylaxis will be ordered: Yes Critical Care Time Critical Care Time: No (1) Pneumonia Laterality: right Lung location: lower lobe of lung Pneumonia type: due to unspecified organism Qualified Code(s): J18.9 - Pneumonia, unspecified organism
[2019-10-01] MEDS ORDERED: POLYETHYLENE (MIRALAX) 17 GM PACK PO PRN (18:03)
[2019-10-01] MEDS ORDERED: ACETAMINOPHEN 325 MG TAB PO PRN (18:03)
[2019-10-01] MEDS ORDERED: CONSULT PHARMACY STA (18:09)
[2019-10-01] MEDS ORDERED: VANCOMYCIN CONSULT ACTIVE PRN (18:21)
[2019-10-01] MEDS ORDERED: GLUCAGON FOR INJ 1 MG VIAL SQ PRN (18:29)
[2019-10-01] MEDS ORDERED: GLUCOSE 10 TABS/TUBE PO PRN (18:29)
[2019-10-01] MEDS ORDERED: DEXTROSE 50% 50 ML SYRINGE IV PRN (18:29)
[2019-10-01] MEDS ORDERED: GLUCOSE 40% GEL 15 GM TUBE PO PRN (18:29)
[2019-10-01] MEDS ORDERED: CARBOHYDRATES FOR HYPOGLYCEMIA PO PRN (18:29)
[2019-10-01] MEDS ORDERED: VANCOMYCIN HCL 1,250 MG in SODIUM CHLORIDE 0.9% 250 ML IV STA (18:29)
[2019-10-01] MEDS ORDERED: ONDANSETRON INJ 2 MG/ML 2 ML VIAL IV PRN (18:35)
[2019-10-01] MEDS: SODIUM CHLORIDE 0.9% 500 ML IV SCH (19:45)
[2019-10-01] MEDS: INSULIN ASPART 100 UNITS/ML 3 ML PEN SC SCH (20:37)
[2019-10-01] MEDS: INSULIN GLARGINE SOLOSTAR 100 UNITS/ML 3 ML PEN SC SCH (20:37)
[2019-10-01] MEDS ORDERED: ALPRAZolam 0.25 MG TABLET PO PRN (21:15)
[2019-10-01] MEDS: OXYCODONE/ACETAMINOPHEN 5mg/325mg TAB PO PRN (21:29)
[2019-10-01] MEDS: AMITRIPTYLINE HCL 25 MG TAB PO SCH (21:42)
[2019-10-01] MEDS: LATANOPROST 0.005% OP SOLN 2.5 ML BTL OP SCH (21:42)
[2019-10-01] MEDS: METOPROLOL TARTRATE 100 MG TAB PO SCH (21:42)
[2019-10-02] MEDS: SODIUM CHLORIDE 0.9% 500 ML IV SCH (00:04)
[2019-10-02 05:49] LABS: Mean Corpuscular Hemoglobin 32.3 pg (25-34); Mean Corpuscular Hgb Conc 33.3 g/dL (32-36); Mean Corpuscular Volume 96.8 fL (80-100); RDW Coefficient of Variation 14.1 % (11.5-14.5); RDW Standard Deviation 45.9 fL (36.4-46.3); Red Blood Count 2.48 M/uL (4.2-5.4); White Blood Count 3.14 K/uL (4.8-10.8)
[2019-10-02 06:08] LABS: Mean Platelet Volume 10.3 fL (7.4-10.4); Platelet Count 76 K/uL (130-400)
[2019-10-02 06:12] LABS: Basophils # (auto) 0.02 K/uL (0-0.2); Basophils % (auto) 0.6 %; Eosinophils # (auto) 0.05 K/uL (0-0.5); Eosinophils % (auto) 1.6 %; Immature Granulocytes # (auto) 0.01 K/uL (0.00-0.02); Immature Granulocytes % (auto) 0.3 %; Lymphocytes # (auto) 0.75 K/uL (1.2-3.4); Lymphocytes % (auto) 23.9 %; Monocytes # (auto) 0.45 K/uL (0.11-0.59); Monocytes % (auto) 14.3 %; Neutrophils # (auto) 1.86 K/uL (1.4-6.5); Neutrophils % (auto) 59.3 %; Ovalocytes 1+
[2019-10-02 06:26] LABS: BUN Creatinine Ratio 14.2 (10-20); Calcium 8.3 mg/dl (8.5-10.1); Creatinine Clr Calc Pharmacy 32.6 ml/min; Est GFR (African American) 52.1; Est GFR (Non-African American) 44.9; Potassium 3.5 mmol/L (3.5-5.1)
[2019-10-02] MEDS: METOPROLOL TARTRATE 100 MG TAB PO SCH ×2 (07:43→20:27)
[2019-10-02] MEDS: ASCORBIC ACID 500 MG TAB PO SCH (07:43)
[2019-10-02] MEDS: ROSUVASTATIN CALCIUM 20 MG TAB PO SCH (07:43)
[2019-10-02] MEDS: AMLODIPINE BESYLATE 5 MG TAB PO SCH (07:43)
[2019-10-02] MEDS: PANTOprazole 40 MG TAB PO SCH (07:43)
[2019-10-02] MEDS: ESCITALOPRAM OXALATE 10 MG TAB PO SCH (07:43)
[2019-10-02] MEDS: INSULIN GLARGINE SOLOSTAR 100 UNITS/ML 3 ML PEN SC SCH ×2 (08:09→20:26)
[2019-10-02] MEDS: INSULIN ASPART 100 UNITS/ML 3 ML PEN SC SCH ×4 (08:09→20:26)
[2019-10-02] MEDS: CEFEPIME 2,000 MG in SYRINGE 7.5 ML IV SCH ×2 (08:49→20:29)
--- NOTE | 2019-10-02 09:05 | Hospitalist Progress Note ---
Date of Service October 02, 2019 Assessment & Plan (1) Neutropenic fever: Was just neutropenic (0.41) on 09/30/19 and recent fever prior to admission. Was started on empiric coverage with cefepime and vancomycin in light of pneumonia on chest x-ray Possible sepsis considering reported fevers, cough, pancytopenia, pneumonia on Xray, SOLITARIO Neutropenia has resolved. WBC is 3.14 today with neutrophil count of 1.86. MRSA screen is neg. Vanc discontinued. Continue cefepime for now Blood cultures still pending (2) Pneumonia: CXR showed new RLL opacity Currently on cefepime (3) Pancytopenia: Secondary to chemotherapy, exacerbated by illness. Leukopenia is improving Hb is 8 today. Dropped 1g since admission. No obvious bleed. Will monitor Still has thrombocytopenia now 76 Continue to monitor Continue Neutropenic precautions (4) Metastatic breast cancer: On Ibrance, last dose was 1 week ago. Second cycle was set to start on 09/30/19, but was held by Dr. Toribio (5) Paroxysmal atrial fibrillation: Currently in sinus rhythm. Continue metoprolol 100 mg twice daily per home regimen. Patient is not anticoagulation due to postoperative blood loss anemia and overall bleeding risks with noted rectus sheath hematoma observed on CT during her previous admission 2 months ago. Anticoagulation long-term may be reassessed by her credit analysis manager as outpatient. (6) Hypertension: Controlled Continue amlodipine 5 mg daily (7) DM type 2 (diabetes mellitus, type 2): Continue to hold outpatient medications Continue basal bolus insulin while inpatient (8) Acute renal failure: Likely secondary to current infection Got IV fluids overnight Resolved now (9) DVT prophylaxis: SCDs, DVT chemoprophylaxis contraindicated in setting of thrombocytopenia DO NOT RESUSCITATE Admission and Anticipated Discharge Date Admission Date: October 01, 2019 Subjective Patient seen and examined Still having dry cough though chest discomfort/pain with cough has resolved No fevers today Had diarrhea 3 episodes of loose BM yesterday Denied any nausea, vomiting, abd pain Physical Exam Constitutional: well developed; no acute distress Eyes: PERRL, conjunctivae normal, anicteric sclerae ENMT: external ear and nose normal, oropharynx normal Respiratory: normal respiratory effort; no respiratory distress Right lung base crackle Cardiovascular: RRR, no murmur, no edema Heart Sounds: normal S1 and normal S2 Gastrointestinal (Abdomen): normal bowel sounds, soft, nontender, no hepatosplenomegaly Musculoskeletal: no cyanosis or clubbing, extremities motor strength 5/5 Neurologic: PERRL, EOMI, accommodation nl, no face palsy, no dysarthria moves all extremities; no focal motor deficits Psychiatric: A+Ox3, euthymic affect Results & Data ([facility]) Vital Signs (Past 12 Hours) Vital Signs Temp Pulse Pulse Resp BP Pulse Ox 10/02/19 07:36 36.6 C 68 18 122/54 L 96 10/02/19 03:39 36.6 C 68 18 109/56 L 97 10/01/19 23:04 74 10/01/19 21:54 36.9 C 77 18 137/60 97 Laboratory Results Abnormal lab results 10/01/19 10/01/19 10/01/19 Range/Units 14:05 14:05 14:15 WBC 2.66 L (4.8-10.8) K/uL RBC 2.81 L (4.2-5.4) M/uL Hgb 9.1 L (12.0-16.0) g/dL Hct 26.7 L (37-47) % Plt Count 83 L D (130-400) K/uL Lymph # (Auto) 0.37 L (1.2-3.4) K/uL Absolute Nucleated RBC 0.02 H (0-0) K/uL Sodium 135 L (136-145) mmol/L Chloride (98-107) mmol/L Anion Gap (3-11) Creatinine 1.34 H (0.6-1.2) mg/dl Glucose 148 H (70-99) mg/dl POC Glucose (70-99) mg/dl Calcium (8.5-10.1) mg/dl Total Protein 6.3 L (6.4-8.2) gm/dl Urine pH 8.0 H (4.5-7.5) Urine Blood Trace H (Negative) 10/01/19 10/02/19 10/02/19 Range/Units 20:35 05:09 05:09 WBC 3.14 L (4.8-10.8) K/uL RBC 2.48 L (4.2-5.4) M/uL Hgb 8.0 L (12.0-16.0) g/dL Hct 24.0 L (37-47) % Plt Count 76 L (130-400) K/uL Lymph # (Auto) 0.75 L (1.2-3.4) K/uL Absolute Nucleated RBC (0-0) K/uL Sodium (136-145) mmol/L Chloride 112 H (98-107) mmol/L Anion Gap 2.0 L (3-11) Creatinine (0.6-1.2) mg/dl Glucose 62 L (70-99) mg/dl POC Glucose 230 H (70-99) mg/dl Calcium 8.3 L (8.5-10.1) mg/dl Total Protein (6.4-8.2) gm/dl Urine pH (4.5-7.5) Urine Blood (Negative) (1) Pneumonia Laterality: right Lung location: lower lobe of lung Pneumonia type: due to unspecified organism Qualified Code(s): J18.9 - Pneumonia, unspecified organism
--- NOTE | 2019-10-02 09:31 | Electrocardiogram Report ---
Test Reason : Blood Pressure : / mmHG Vent. Rate : 077 BPM Atrial Rate : 077 BPM P-R Int : 174 ms QRS Dur : 088 ms QT Int : 416 ms P-R-T Axes : -28 011 012 degrees QTc Int : 471 ms Normal sinus rhythm When compared with ECG of 26-JUL-2019 09:15, No significant change Confirmed by Jay Marcum ([id number]) on 10/02/2019 9:30:51 AM Referred By: REFERRED SELF Confirmed By:Jay Marcum
--- NOTE | 2019-10-02 09:34 | Electrocardiogram Report ---
Test Reason : Blood Pressure : / mmHG Vent. Rate : 075 BPM Atrial Rate : 075 BPM P-R Int : 176 ms QRS Dur : 088 ms QT Int : 404 ms P-R-T Axes : 000 014 028 degrees QTc Int : 451 ms Normal sinus rhythm Nonspecific ST and T wave abnormality Abnormal ECG When compared with ECG of 26-JUL-2019 09:15, No significant change Confirmed by Jay Marcum ([id number]) on 10/02/2019 9:34:00 AM Referred By: REFERRED SELF Confirmed By:Jay Marcum
[2019-10-02] MEDS ORDERED: CEFEPIME 500 MG in SYRINGE 0 ML IV SCH (14:00)
[2019-10-02] MEDS ORDERED: CEFEPIME 2,000 MG in SYRINGE 7.5 ML IV SCH (14:00)
[2019-10-02] MEDS: AMITRIPTYLINE HCL 25 MG TAB PO SCH (20:27)
[2019-10-02] MEDS: LATANOPROST 0.005% OP SOLN 2.5 ML BTL OP SCH (20:29)
[2019-10-02] MEDS: OXYCODONE/ACETAMINOPHEN 5mg/325mg TAB PO PRN (23:31)
[2019-10-03 07:21] LABS: Hematocrit (blood only) 24.1 % (37-47); Mean Corpuscular Hemoglobin 31.9 pg (25-34); Mean Corpuscular Hgb Conc 33.2 g/dL (32-36); RDW Coefficient of Variation 14.5 % (11.5-14.5); RDW Standard Deviation 47.2 fL (36.4-46.3); Red Blood Count 2.51 M/uL (4.2-5.4); White Blood Count 3.98 K/uL (4.8-10.8)
[2019-10-03 07:25] LABS: Mean Platelet Volume 9.5 fL (7.4-10.4); Platelet Count 91 K/uL (130-400)
[2019-10-03] MEDS: ESCITALOPRAM OXALATE 10 MG TAB PO SCH (07:28)
[2019-10-03] MEDS: PANTOprazole 40 MG TAB PO SCH (07:28)
[2019-10-03] MEDS: ROSUVASTATIN CALCIUM 20 MG TAB PO SCH (07:28)
[2019-10-03] MEDS: METOPROLOL TARTRATE 100 MG TAB PO SCH ×2 (07:28→20:19)
[2019-10-03] MEDS: AMLODIPINE BESYLATE 5 MG TAB PO SCH (07:29)
[2019-10-03] MEDS: CEFEPIME 2,000 MG in SYRINGE 7.5 ML IV SCH ×2 (07:29→20:19)
[2019-10-03] MEDS: ASCORBIC ACID 500 MG TAB PO SCH (07:29)
[2019-10-03 07:53] LABS: BUN Creatinine Ratio 12.5 (10-20); Calcium 8.6 mg/dl (8.5-10.1); Creatinine Clr Calc Pharmacy 27.7 ml/min; Est GFR (African American) 42.7; Est GFR (Non-African American) 36.9; Potassium 3.4 mmol/L (3.5-5.1)
[2019-10-03] MEDS: INSULIN ASPART 100 UNITS/ML 3 ML PEN SC SCH ×4 (08:10→20:21)
[2019-10-03] MEDS: INSULIN GLARGINE SOLOSTAR 100 UNITS/ML 3 ML PEN SC SCH ×2 (08:10→20:21)
[2019-10-03] MEDS: DOXYCYCLINE HYCLATE 100 MG CAP PO SCH ×2 (08:21→20:21)
[2019-10-03] MEDS: SODIUM CHLORIDE 0.9% 500 ML IV SCH ×2 (09:48→18:14)
[2019-10-03] MEDS ORDERED: POTASSIUM CHLORIDE 10 MEQ TABCR PO STA (10:44)
--- NOTE | 2019-10-03 10:46 | Hospitalist Progress Note ---
Date of Service October 03, 2019 Assessment & Plan (1) Neutropenic fever: Was just neutropenic (0.41) on 09/30/19 and recent fever prior to admission. Was started on empiric coverage with cefepime and vancomycin in light of pneumonia on chest x-ray Possible sepsis considering reported fevers, cough, pancytopenia, pneumonia on Xray, SOLITARIO Neutropenia has resolved. WBC is 3.98 today with neutrophil count of 1.86. MRSA screen is neg. Vanc discontinued. Continue cefepime and doxycycline for now Blood cultures negative day one (2) Pneumonia: CXR showed new RLL opacity Currently on cefepime and doxycycline (3) Pancytopenia: Secondary to chemotherapy, exacerbated by illness. Leukopenia is improving Hb is 8 today. Stable. Will monitor Still has thrombocytopenia now 91 Continue to monitor Continue Neutropenic precautions (4) Metastatic breast cancer: On Ibrance, last dose was 1 week ago. Second cycle was set to start on 09/30/19, but was held by Dr. Toribio (5) Paroxysmal atrial fibrillation: Currently in sinus rhythm. Continue metoprolol 100 mg twice daily per home regimen. Patient is not anticoagulation due to postoperative blood loss anemia and overall bleeding risks with noted rectus sheath hematoma observed on CT during her previous admission 2 months ago. Anticoagulation long-term may be reassessed by her increment manager as outpatient. (6) Hypertension: Controlled Continue amlodipine 5 mg daily (7) DM type 2 (diabetes mellitus, type 2): Continue to hold outpatient medications Continue basal bolus insulin while inpatient (8) Acute renal failure: Likely secondary to current infection Cr increased from 1.13 yesterday to 1.33 today Will give gentle IVF Encourage to drink (9) DVT prophylaxis: SCDs, DVT chemoprophylaxis contraindicated in setting of thrombocytopenia DO NOT RESUSCITATE Plan to discharge tomorrow Admission and Anticipated Discharge Date Admission Date: October 01, 2019 Subjective Patient seen and examined Reports cough is much improved No fevers, chills No longer having any chest discomfort or pain Physical Exam Constitutional: well developed; no acute distress Eyes: PERRL, conjunctivae normal, anicteric sclerae ENMT: external ear and nose normal, oropharynx normal Respiratory: normal respiratory effort; no respiratory distress Mild right lung crackles Cardiovascular: RRR, no murmur, no edema Gastrointestinal (Abdomen): normal bowel sounds, soft, nontender, no hepatosplenomegaly Neurologic: PERRL, EOMI, accommodation nl, no face palsy, no dysarthria Psychiatric: A+Ox3, euthymic affect Results & Data ([facility]) Vital Signs (Past 12 Hours) Vital Signs Temp Pulse Pulse Resp BP Pulse Ox 10/03/19 07:21 36.8 C 79 18 139/65 95 10/03/19 02:43 37.1 C 87 19 123/65 96 10/02/19 23:04 83 10/02/19 22:54 37.1 C 71 18 119/62 95 Laboratory Results Abnormal lab results 10/02/19 10/02/19 10/03/19 Range/Units 11:47 20:22 07:09 WBC (4.8-10.8) K/uL RBC (4.2-5.4) M/uL Hgb (12.0-16.0) g/dL Hct (37-47) % RDW Std Deviation (36.4-46.3) fL Plt Count (130-400) K/uL Potassium 3.4 L (3.5-5.1) mmol/L Chloride 110 H (98-107) mmol/L Creatinine 1.33 H (0.6-1.2) mg/dl POC Glucose 120 H 127 H (70-99) mg/dl 10/03/19 10/03/19 Range/Units 07:09 07:41 WBC 3.98 L (4.8-10.8) K/uL RBC 2.51 L (4.2-5.4) M/uL Hgb 8.0 L (12.0-16.0) g/dL Hct 24.1 L (37-47) % RDW Std Deviation 47.2 H (36.4-46.3) fL Plt Count 91 L (130-400) K/uL Potassium (3.5-5.1) mmol/L Chloride (98-107) mmol/L Creatinine (0.6-1.2) mg/dl POC Glucose 104 H (70-99) mg/dl (1) Pneumonia Laterality: right Lung location: lower lobe of lung Pneumonia type: due to unspecified organism Qualified Code(s): J18.9 - Pneumonia, unspecified organism
[2019-10-03] MEDS: LATANOPROST 0.005% OP SOLN 2.5 ML BTL OP SCH (20:20)
[2019-10-03] MEDS: AMITRIPTYLINE HCL 25 MG TAB PO SCH (20:22)
[2019-10-04] MEDS: SODIUM CHLORIDE 0.9% 500 ML IV SCH ×2 (01:00→07:06)
[2019-10-04 06:28] LABS: Hemoglobin 8.5 g/dL (12.0-16.0); Mean Corpuscular Hemoglobin 32.1 pg (25-34); Mean Corpuscular Volume 94.3 fL (80-100); Mean Platelet Volume 9.5 fL (7.4-10.4); Platelet Count 157 K/uL (130-400); RDW Coefficient of Variation 14.7 % (11.5-14.5); RDW Standard Deviation 47.2 fL (36.4-46.3); Red Blood Count 2.65 M/uL (4.2-5.4); White Blood Count 5.14 K/uL (4.8-10.8)
[2019-10-04 06:55] LABS: BUN Creatinine Ratio 10.3 (10-20); Calcium 8.6 mg/dl (8.5-10.1); Creatinine Clr Calc Pharmacy 28.3 ml/min; Est GFR (African American) 43.9; Est GFR (Non-African American) 37.9; Potassium 3.6 mmol/L (3.5-5.1)
[2019-10-04] MEDS: INSULIN ASPART 100 UNITS/ML 3 ML PEN SC SCH (08:08)
[2019-10-04] MEDS: ROSUVASTATIN CALCIUM 20 MG TAB PO SCH (08:09)
[2019-10-04] MEDS: METOPROLOL TARTRATE 100 MG TAB PO SCH (08:09)
[2019-10-04] MEDS: PANTOprazole 40 MG TAB PO SCH (08:09)
[2019-10-04] MEDS: ASCORBIC ACID 500 MG TAB PO SCH (08:09)
[2019-10-04] MEDS: DOXYCYCLINE HYCLATE 100 MG CAP PO SCH (08:09)
[2019-10-04] MEDS: INSULIN GLARGINE SOLOSTAR 100 UNITS/ML 3 ML PEN SC SCH (08:09)
[2019-10-04] MEDS: AMLODIPINE BESYLATE 5 MG TAB PO SCH (08:09)
[2019-10-04] MEDS: CEFEPIME 2,000 MG in SYRINGE 7.5 ML IV SCH (08:09)
[2019-10-04] MEDS: ESCITALOPRAM OXALATE 10 MG TAB PO SCH (08:09)
--- NOTE | 2019-10-04 09:44 | Discharge Summary ---
Date of Service October 04, 2019 Admission HPI Per Admitting Provider 83-year-old female with metastatic breast cancer on Ibrance chemotherapy presented to the emergency room with fever, malaise, and shortness of breath. She is on adjuvant chemotherapy per Dr. Toribio, her oncologist and finished her first 21-day cycle 1 week ago. 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 Her last dose was yesterday given as a subcutaneous injection. On 09/24 she was found to be significantly neutropenic with a white blood cell count of 0.85, H&H of 9.6/30 and a platelet count of 44. At that time she was not sick with any symptoms. Over the last couple of days she reports a fever of 101 F. She reports a nonproductive cough and denies hemoptysis. She denies any GI symptoms, headache, neck stiffness, chest pain. She has a chronic rhinitis which is not significantly been different from baseline. She reports no other head or neck symptoms. She denies any GI symptoms including no diarrhea, constipation or blood per rectum. She has been feeling malaise but has not been significantly weak and she has been keeping up with her oral intake of fluids and food. She lives with her at home. Work-up in the ER included a CBC revealing a white blood cell count of 2.66 with 70% neutrophils, H/H of 9.1/27 and a platelet count of 83. Yesterday lab work revealed 31% neutrophils with a white blood cell count of 1.33. Additional blood work included a BMP revealing a mildly increased creatinine of 1.34 with a baseline of 1. Sodium is 135 and electrolytes are otherwise normal. Procalcitonin was negative. Urinalysis was negative and flu PCR was negative imaging included a chest x-ray showing a new right lower lobe airspace opacity consistent with a pneumonia. Blood cultures were drawn and pending. An EKG is pending. She is oxygenating well on room air and was transferred to telemetry for further monitoring and treatment. She did receive 2 g of cefepime in the ER and was started on IVF. The patient is not septic. Admission Exam Per Admitting Provider CONSTITUTIONAL: WNWD, vitals as above, generally well-appearing EYES: EOMI bilaterally, PERRL, normal conjunctivae, no scleral icterus ENT: external ear and nose normal, oropharynx clear, no maxillary or ethmoid sinus tenderness NECK: trachea midline, no lymphadenopathy RESPIRATORY: clear to auscultation bilaterally, very mild rhonchi at right base, no rales or wheezes, normal respiratory effort, not requiring supplemental oxygen. CARDIOVASCULAR: regular rate and rhythm, S1 and 2 heard without murmurs, gallops or rubs, no JVD, no peripheral edema GASTROINTESTINAL: normal bowel sounds, soft, nontender, nondistended MUSCULOSKELETAL: strength 5/5 throughout, head is normocephalic and atraumatic SKIN: warm and dry NEUROLOGIC: No facial palsy, no dysarthria. CN 2-12 grossly intact, no sensory deficit, normal cognition, normal speech, no gross focal deficits. PSYCHIATRIC: alert cooperative and oriented to person, place and time. LYMPHATIC: no LAD Principal Diagnosis Neutropenic fever Pneumonia Pancytopenia Discharge Exam Constitutional well developed; no acute distress Eyes PERRL, conjunctivae normal, anicteric sclerae ENMT external ear and nose normal, oropharynx normal Respiratory normal respiratory effort; no respiratory distress Auscultation: lungs clear to auscultation bilaterally Cardiovascular RRR, no murmur, no edema Heart Sounds: normal S1 and normal S2 Gastrointestinal (Abdomen) normal bowel sounds, soft, nontender, no hepatosplenomegaly Musculoskeletal no cyanosis or clubbing, extremities motor strength 5/5 Neurologic PERRL, EOMI, accommodation nl, no face palsy, no dysarthria moves all extremities; no focal motor deficits Psychiatric A+Ox3, euthymic affect Discharge Data Allergies Allergy/AdvReac Type Severity Reaction Status Date / Time Influenza Virus Vaccines Allergy Mild SWELLING Verified 10/01/19 14:14 Consultations 10/01/19 16:14 ED Decision to Admit Stat 10/01/19 18:03 Consult Case Management - Discharge Planning Routine Hospital Course (1) Neutropenic fever: Was just neutropenic (0.41) on 09/30/19 and recent fever prior to admission. Was started on empiric coverage with cefepime and vancomycin in light of pneumonia on chest x-ray and neutropenic fever Possible sepsis considering reported fevers, cough, pancytopenia, pneumonia on Xray, SOLITARIO Neutropenia has resolved. Total WBC is 5.14 today MRSA screen is neg. Fevers and shortness of breath reported on admission has resolved. Blood cultures were negative (2) Pneumonia: CXR showed new RLL opacity Treated with antibiotics Discharged on Augmentin and doxycycline to complete therapy (3) Pancytopenia: Secondary to chemotherapy, exacerbated by illness. Leukopenia resolved Hb is 8.5 today. Stable. Thrombocytopenia. Platelet was 53 on admission. Improved to 157 today. (4) Metastatic breast cancer: On Ibrance, last dose was 1 week ago. Second cycle was set to start on 09/30/19, but was held by Dr. Toribio (5) Paroxysmal atrial fibrillation: Currently in sinus rhythm. Continue metoprolol 100 mg twice daily per home regimen. Patient is not anticoagulation due to postoperative blood loss anemia and overall bleeding risks with noted rectus sheath hematoma observed on CT during her previous admission 2 months ago. (6) Hypertension: Controlled Continue amlodipine 5 mg daily (7) DM type 2 (diabetes mellitus, type 2): Continue to hold outpatient medications Continue basal bolus insulin while inpatient (8) Acute renal failure: Patient's creatinine has been 1.2-1.5 since 2019. Unclear at this time if this is new baseline Cr is 1.3 today Avoid nephrotoxins Follow up future monitoring with PCP Total Time Total Time Spent Total Time Spent (In Minutes): 35 Total Time Includes: Examination of the Patient, Discharge Planning, Medication Reconciliation and Other (Discussion with patient and patient's daughter (on phone) about plan of care) Discharge Plan Discharge Items Patient Disposition: Home - Self-Care Reason For Visit: PNEUMONIA Discharge Diagnosis: Neutropenic fever Right lower lobe pneumonia Pancytopenia Condition on Discharge: Good Activity: Resume your previous activity Non-emergency contact: Primary Care Provider and Oncologist Call non-emergency contact if: you have any medication questions Follow-up/Referrals: Mana Thompson, [Primary Care Provider] - (Please call your PCP to schedule a follow-up appointment when available.) Diet: Regular and Carb Consistent or DM2 Addtl Attending Provider Instructions: Mrs Contreras. You came to the hospital complaining of fever, malaise and shortness of breath. You were evaluated and found to have a pneumonia and neutropenic fever. You were started on antibiotics with improvement in your symptoms. Please continue taking the antibiotics to complete treatment. Please do not take the antibiotics (doxycycline) at the same time with your calcium tabs as we discussed. Please follow up with your Primary doctor and oncologist. It was a pleasure taking care of you. Pending Studies at Discharge: No Stand-Alone Forms: [facility], Smoking Cessation Medications and DC Order Prescriptions: New doxycycline hyclate 100 mg Capsule 100 mg PO BID 4 Days Qty: 8 RF: 0 amoxicillin-pot clavulanate [Augmentin] 875-125 mg tablet 1 tab PO BID 4 Days Qty: 8 RF: 0 Continued multivitamin Tablet 1 tab PO QAM RF: 0 alprazolam [Xanax] 0.25 mg Tablet 0.25 mg PO DAILY PRN (Reason: Anxiety) RF: 0 ascorbic acid (vitamin C) [Vitamin C] 500 mg Tablet 500 mg PO QAM RF: 0 escitalopram oxalate [Lexapro] 10 mg Tablet 10 mg PO QAM RF: 0 rosuvastatin [Crestor] 20 mg Tablet 20 mg PO QAM RF: 0 calcium carbonate-vitamin D3 [Os-Arcadio 500 + D3] 500 mg(1,250mg) -200 unit Tablet 1 tab PO BID RF: 0 cranberry 400 mg Capsule 400 mg PO QAM RF: 0 Tradjenta 5 mg Tablet 5 mg PO QAM RF: 0 ondansetron HCl [Zofran] 4 mg Tablet 4 mg PO Q6H PRN (Reason: Nausea) RF: 0 latanoprost 0.005 % Drops 1 drp OPHTHALMIC (EYE) PM RF: 0 amlodipine 5 mg Tablet 5 mg PO DAILY RF: 0 amitriptyline 25 mg Tablet 25 mg PO HS RF: 0 esomeprazole magnesium [Nexium] 20 mg Capsule,Delayed Release(Dr/Ec) 20 mg PO DAILY RF: 0 metoprolol tartrate 100 mg tablet 100 mg PO BID RF: 0 oxycodone-acetaminophen [Percocet] 5-325 mg Tablet 1 tab PO Q8H PRN (Reason: Pain) RF: 0 esomeprazole magnesium [Nexium] 20 mg Capsule,Delayed Release(Dr/Ec) 20 mg PO DAILY RF: 0 Ibrance 100 mg Capsule 100 mg PO DAILY RF: 0 Discontinued tramadol 50 mg Tablet 50 mg PO Q8H PRN (Reason: Pain) RF: 0 Discharge Orders: Discharge Order (Routine); Ordered 10/04/19 Ordered By: Florence Downing Admission Data Admit Date/Time: 10/01/19 16:34 Attending Provider: Florence Downing I. Admit Provider: Bing Lowe Primary Care Provider: Mana Thompson Other Providers: Bing Lowe Other Interventions: Discharge Summary Assessment (RN) Last Done: 10/04/19 10:33 DC Date/Time DO NOT enter until pt leaves facility: 10/04/19 11:51
== END 2019-10-04 11:51 | disposition home or self-care (01) | DRG 808 ==
LOC: ED 13:27 → 2N 16:34 → SUATTDRO 16:34 → 2N 17:39

== ENCOUNTER 2019-11-10 08:07 | Inpatient (IN) ==
[2019-11-10] MEDS ORDERED: SODIUM CHLORIDE 0.9% 500 ML IV ONE (08:14)
[2019-11-10] MEDS ORDERED: ONDANSETRON INJ 2 MG/ML 2 ML VIAL IV STA (08:15)
[2019-11-10] MEDS ORDERED: ACETAMINOPHEN 1,000 MG/100 ML VIAL IV STA (08:15)
[2019-11-10 08:30] LABS: Basophils # (auto) 0.03 K/uL (0-0.2); Basophils % (auto) 1.8 %; Eosinophils # (auto) 0.04 K/uL (0-0.5); Eosinophils % (auto) 2.4 %; Hematocrit (blood only) 29.9 % (37-47); Hemoglobin 10.2 g/dL (12.0-16.0); Immature Granulocytes # (auto) 0.02 K/uL (0.00-0.02); Immature Granulocytes % (auto) 1.2 %; Lymphocytes # (auto) 0.32 K/uL (1.2-3.4); Lymphocytes % (auto) 19.2 %; Mean Corpuscular Hemoglobin 33.9 pg (25-34); Mean Corpuscular Hgb Conc 34.1 g/dL (32-36); Mean Corpuscular Volume 99.3 fL (80-100); Mean Platelet Volume 9.7 fL (7.4-10.4); Monocytes # (auto) 0.18 K/uL (0.11-0.59); Monocytes % (auto) 10.8 %; Neutrophils # (auto) 1.08 K/uL (1.4-6.5); Neutrophils % (auto) 64.6 %; Nucleated RBC # (auto) 0.02 K/uL (0-0); Nucleated RBC % (auto) 1.5 %; Platelet Count 121 K/uL (130-400); RDW Coefficient of Variation 18.4 % (11.5-14.5); Red Blood Count 3.01 M/uL (4.2-5.4); White Blood Count 1.67 K/uL (4.8-10.8)
[2019-11-10] MEDS ORDERED: MAGNESIUM SULFATE / D5W 1 GM/100 ML BAG IV SCH (08:30)
[2019-11-10] MEDS ORDERED: SODIUM CHLORIDE 0.9% 1000ML 500 ML IV ONE ×2 (08:31→09:13)
[2019-11-10] MEDS ORDERED: CEFEPIME 2,000 MG/20 ML VIAL IV STA (08:31)
[2019-11-10] MEDS ORDERED: DAPTOmycin 325 MG in SYRINGE 0 ML IV ONE (08:31)
[2019-11-10] MEDS ORDERED: DAPTOMYCIN CONSULT ACTIVE PRN (08:31)
--- NOTE | 2019-11-10 08:36 | Emergency Department Note ---
History of Present Illness General Chief complaint: Fever Time Seen by Provider: 11/10/19 08:08 Source: patient, EMS, RN notes reviewed and old records reviewed Mode of arrival: EMS Limitations: no limitations History of Present Illness Provider complaint: Fever Onset (ago): hour(s) 2 Maximum Pain Intensity: 4 Current Pain Intensity: 0 Associated symptoms: + fever/chills and + nausea/vomiting Treatments prior to arrival: other This is an 83-year-old female who presents emergency department complaining of fever. The patient is currently on chemotherapy. She reports feeling very weak this morning. She also felt nauseated and took 4 mg of Zofran however vomited after taking the Zofran. She is running a fever upon arrival to the emergency department. The patient denies any chest pain or shortness of breath. Home Medications Home Medications Medication Instructions Recorded Confirmed Type alprazolam [Xanax] 0.25 mg PO DAILY PRN 03/28/18 11/10/19 History ascorbic acid (vitamin C) [Vitamin 500 mg PO QAM 03/28/18 11/10/19 History C] calcium carbonate-vitamin D3 1 tab PO BID 03/28/18 11/10/19 History [Os-Arcadio 500 + D3] escitalopram oxalate [Lexapro] 10 mg PO QAM 03/28/18 11/10/19 History multivitamin 1 tab PO QAM 03/28/18 11/10/19 History rosuvastatin [Crestor] 20 mg PO QAM 03/28/18 11/10/19 History Tradjenta 5 mg PO QAM 07/07/19 11/10/19 History cranberry 400 mg PO QAM 07/07/19 11/10/19 History amitriptyline 25 mg PO HS 07/12/19 11/10/19 History amlodipine 5 mg PO DAILY 07/12/19 11/10/19 History esomeprazole magnesium [Nexium] 20 mg PO DAILY 07/12/19 11/10/19 History latanoprost 1 drp OPHTHALMIC (EYE) PM 07/12/19 11/10/19 History ondansetron HCl [Zofran] 4 mg PO Q6H PRN 07/12/19 11/10/19 History Ibrance 100 mg PO DAILY 10/01/19 11/10/19 History metoprolol tartrate 100 mg PO BID 10/01/19 11/10/19 History oxycodone-acetaminophen [Percocet] 1 tab PO Q8H PRN 10/01/19 11/10/19 History Allergies Allergy/AdvReac Type Severity Reaction Status Date / Time Influenza Virus Vaccines Allergy Mild SWELLING Verified 11/10/19 09:24 Past Med/Surg History Medical History Acute hypoxemic respiratory failure Anxiety Arthritis Atrial tachycardia Cataracts, bilateral CKD (chronic kidney disease), stage III DM type 2 (diabetes mellitus, type 2) Dyslipidemia Goals of care, counseling/discussion HTN (hypertension) HX: breast cancer Metastatic breast cancer S/P admission to ICU (intensive care unit) Temporal arteritis Surgical History H/O right mastectomy Jun 2018 History of appendectomy History of cataract surgery S/P partial colectomy Jul 2019 S/P LIZBETH-BSO Family History Mother Diabetes Social History Preferred Language: Cameroonian Communication Ability: Effective 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 Beliefs That Will Affect Care: None marital status: Current Living Situation: Spouse Current Living Situation Comment: lives with Other Information That Helps Us Care for You: No Feels Safe at Home: Yes Safety Concerns: Feels Safe At This Time Smoking Status: Never smoker Hx Alcohol Use: No Hx Substance Use: No Review of Systems A total of 10 systems reviewed and were otherwise negative Physical Exam Vital Signs Vital Signs - 24 hr 11/10/19 08:11 11/10/19 08:13 11/10/19 08:20 Temperature 37.4 C Temperature Source Oral Pulse Rate 135 H 133 H Pulse Rate from SpO2 Sensor 136 H Pulse Rhythm Irregular Respiratory Rate 19 17 Respiratory Effort / Characteristics Non-Labored Spontaneous Respiratory Depth Normal Respiratory Pattern Regular Blood Pressure 128/79 128/79 Blood Pressure Mean 91 95 Pulse Oximetry 97 90 94 Oxygen Delivery Method Nasal Cannula Room Air Nasal Cannula Oxygen Flow Rate 2 2 Sepsis Recent Fever Within 48 Hours Yes Sepsis New/Unexplained Change in Mental Status No Sepsis Action Taken by Nursing No Action Required 11/10/19 08:30 11/10/19 08:58 11/10/19 09:09 Temperature Temperature Source Pulse Rate 118 H 107 H 92 H Pulse Rate from SpO2 Sensor 125 H 93 H Pulse Rhythm Respiratory Rate 18 17 20 Respiratory Effort / Characteristics Respiratory Depth Respiratory Pattern Blood Pressure 90/59 L 141/80 H Blood Pressure Mean 77 118 Pulse Oximetry 99 93 99 Oxygen Delivery Method Nasal Cannula Nasal Cannula Nasal Cannula Oxygen Flow Rate 2 2 2 Sepsis Recent Fever Within 48 Hours Sepsis New/Unexplained Change in Mental Status Sepsis Action Taken by Nursing 11/10/19 09:15 11/10/19 09:30 11/10/19 09:45 Temperature Temperature Source Pulse Rate 91 H 88 86 Pulse Rate from SpO2 Sensor 93 H 89 86 Pulse Rhythm Respiratory Rate 20 21 17 Respiratory Effort / Characteristics Respiratory Depth Respiratory Pattern Blood Pressure 142/73 H 121/60 134/72 Blood Pressure Mean 112 84 103 Pulse Oximetry 99 98 98 Oxygen Delivery Method Oxygen Flow Rate 2 2 2 Sepsis Recent Fever Within 48 Hours Sepsis New/Unexplained Change in Mental Status Sepsis Action Taken by Nursing 11/10/19 10:00 11/10/19 10:15 Temperature Temperature Source Pulse Rate 87 84 Pulse Rate from SpO2 Sensor 87 84 Pulse Rhythm Respiratory Rate 22 21 Respiratory Effort / Characteristics Respiratory Depth Respiratory Pattern Blood Pressure 122/53 L 117/53 L Blood Pressure Mean 79 85 Pulse Oximetry 96 96 Oxygen Delivery Method Oxygen Flow Rate 2 2 Sepsis Recent Fever Within 48 Hours Sepsis New/Unexplained Change in Mental Status Sepsis Action Taken by Nursing GENERAL: Patient is a healthy-appearing well-nourished female HEAD: Normocephalic atraumatic EYES: Ocular movements intact pupils equal and react to light OROPHARYNX mucous membranes are moist no exudates present no erythema or edema present NECK: Supple no nuchal rigidity CHEST: Good equal expansion LUNGS: Clear and equal to auscultation CARDIAC: Normal S1 and S2 ABDOMEN: Soft nontender no guarding BACK: No CVA tenderness EXTREMITIES: No pain upon palpation normal muscle strength in all groups no c lubbing cyanosis or edema NEURO: Patient is following commands is answering questions appropriately. Alert and oriented x3 Cranial Nerves 2-12 grossly intact Course Administered Medications Acetaminophen (Tylenol) 650 mg PO Q4H PRN PRN Reason: Pain or Fever Stop: 12/10/19 11:24 Last Admin: 11/10/19 12:50 Dose: 650 mg Documented by: [id number] Amitriptyline HCl (Elavil) 25 mg PO HS@1999 [facility] Stop: 12/10/19 19:59 Last Admin: 11/10/19 21:36 Dose: 25 mg Documented by: [id number] Potassium Chloride/Sodium Chloride (Normal Saline W/20 Meq Kcl) 20 meq in 1,000 mls @ 80 mls/hr IV .[id number] [facility] Stop: 12/10/19 11:59 Last Admin: 11/10/19 23:38 Dose: 80 mls/hr Documented by: [id number] Infusion: 11/10/19 23:38 Dose: 80 mls/hr Documented by: [id number] Admin: 11/10/19 12:45 Dose: 80 mls/hr Documented by: [id number] Piperacillin Sod/Tazobactam (Sod 3.375 gm/ Dextrose) 115 mls @ 28.75 mls/hr IV Q8@0000,0800,1600 [facility]; Protocol Stop: 11/17/19 15:59 Last Infusion: 11/11/19 03:48 Dose: 0 mls/hr Documented by: [id number] Admin: 11/10/19 23:24 Dose: 28.8 mls/hr Documented by: [id number] Infusion: 11/10/19 20:47 Dose: 0 mls/hr Documented by: [id number] Admin: 11/10/19 16:51 Dose: 28.8 mls/hr Documented by: [id number] Insulin Aspart (Novolog Flexpen) 0 units SC ACHS [facility] Stop: 12/10/19 11:59 Last Admin: 11/10/19 21:11 Dose: Not Given Documented by: [id number] Cosigned by: [id number] Admin: 11/10/19 17:02 Dose: 5 units Documented by: [id number] Cosigned by: [id number] Admin: 11/10/19 13:19 Dose: 2 units Documented by: [id number] Cosigned by: [id number] Insulin Glargine (Lantus Solostar Pen) 0 units SC BID@0800,1999 [facility]; Protocol Stop: 12/10/19 19:59 Last Admin: 11/10/19 21:10 Dose: 5 units Documented by: [id number] Cosigned by: [id number] Latanoprost (Xalatan Oph) 1 drops OP QPM@1999 [facility] Stop: 12/10/19 19:59 Last Admin: 11/10/19 20:49 Dose: 1 drops Documented by: [id number] Multivitamins/Minerals (Caltrate Plus) 1 tab PO BID@0800,2000 [facility] Stop: 12/10/19 19:59 Last Admin: 11/10/19 21:35 Dose: 1 tab Documented by: [id number] Discontinued Medications Sodium Chloride (Nss) 500 mls @ 999 mls/hr IV .Q31M ONE Stop: 11/10/19 08:44 Last Infusion: 11/10/19 09:18 Dose: 0 mls/hr Documented by: [id number] Admin: 11/10/19 08:46 Dose: 999 mls/hr Documented by: [id number] Acetaminophen (Ofirmev) 1,000 mg in 100 mls @ 400 mls/hr IV NOW STA Stop: 11/10/19 08:29 Last Infusion: 11/10/19 09:18 Dose: 0 mls/hr Documented by: [id number] Admin: 11/10/19 08:46 Dose: 400 mls/hr Documented by: [id number] Magnesium Sulfate/Dextrose (Magnesium Sulfate / D5w) 1 gm in 100 mls @ 100 mls/hr IV Q1H [facility] Stop: 11/10/19 12:29 Last Admin: 11/10/19 08:46 Dose: Not Given Documented by: [id number] Cefepime HCl (Maxipime) 2,000 mg in 20 mls @ 5 mls/min IV NOW STA Stop: 11/10/19 08:34 Last Admin: 11/10/19 09:06 Dose: 5 mls/min Documented by: [id number] Daptomycin 325 mg/ Syringe 6.5 mls @ 3.25 mls/min IV NOW ONE; Protocol Stop: 11/10/19 08:32 Last Admin: 11/10/19 09:37 Dose: 3.25 mls/min Documented by: [id number] Sodium Chloride (Nss 1000ml) 500 mls @ 999 mls/hr IV .Q31M ONE Stop: 11/10/19 09:01 Last Infusion: 11/10/19 09:57 Dose: 0 mls/hr Documented by: [id number] Admin: 11/10/19 09:20 Dose: 999 mls/hr Documented by: [id number] Sodium Chloride (Nss 1000ml) 500 mls @ 999 mls/hr IV .Q31M ONE Stop: 11/10/19 09:43 Last Infusion: 11/10/19 10:20 Dose: 0 mls/hr Documented by: [id number] Admin: 11/10/19 09:37 Dose: 999 mls/hr Documented by: [id number] Piperacillin Sod/Tazobactam (Sod 4.5 gm/ Dextrose) 120 mls @ 30 mls/hr IV NOW STA; Protocol Stop: 11/10/19 15:45 Last Infusion: 11/10/19 16:26 Dose: 0 mls/hr Documented by: [id number] Admin: 11/10/19 12:45 Dose: 30 mls/hr Documented by: [id number] Vancomycin HCl 1,500 mg/ (Sodium Chloride) 530 mls @ 200 mls/hr IV NOW STA Stop: 11/10/19 14:23 Last Infusion: 11/10/19 15:24 Dose: 0 mls/hr Documented by: [id number] Admin: 11/10/19 12:45 Dose: 200 mls/hr Documented by: [id number] Insulin Glargine (Lantus Solostar Pen) 15 units SC ONE ONE Stop: 11/10/19 12:01 Last Admin: 11/10/19 13:18 Dose: 15 units Documented by: [id number] Cosigned by: [id number] Ondansetron HCl (Zofran) 4 mg IV NOW STA Stop: 11/10/19 08:16 Last Admin: 11/10/19 08:46 Dose: 4 mg Documented by: [id number] Critical Care Time I have personally spent greater than 90 minutes of critical care time in the direct management of this patient. This includes bedside care, interpretation of diagnostic studies, and testing, discussion with consultants, patient, and family members, and other required patient management activities. This 90 minutes is in excess of all separately billable procedures. Medical Decision Making Differential Diagnosis Sepsis, UTI, pneumonia, metabolic, electrolyte abnormalities, cardiac sources, intracerebral event, toxicologic, neurologic, as well as other pathologies. Medical Records Attestation: I reviewed the patient's medical records. Home Medications Current Medication List: was personally reviewed by me Laboratory Data Attestation: I reviewed the patient's lab results. Result diagrams: 11/10/19 07:20 11/10/19 08:12 Lab Results 11/10/19 11/10/1920 Range/Units 07:20 07:20 07:20 WBC 1.67 L (4.8-10.8) K/uL RBC 3.01 L (4.2-5.4) M/uL Hgb 10.2 L (12.0-16.0) g/dL POC Hgb (12.0-16.0) g/dl Hct 29.9 L (37-47) % POC Hct (37-47) % MCV 99.3 (80-100) fL MCH 33.9 (25-34) pg MCHC 34.1 (32-36) g/dL RDW Std Deviation 66.0 H (36.4-46.3) fL RDW Coeff of Jennifer 18.4 H (11.5-14.5) % Plt Count 121 L (130-400) K/uL MPV 9.7 (7.4-10.4) fL Immature Gran % (Auto) 1.2 % Neut % (Auto) 64.6 % Lymph % (Auto) 19.2 % [place] % (Auto) 10.8 % Eos % (Auto) 2.4 % Baso % (Auto) 1.8 % Immature Gran # (Auto) 0.02 (0.00-0.02) K/uL Neut # (Auto) 1.08 L (1.4-6.5) K/uL Lymph # (Auto) 0.32 L (1.2-3.4) K/uL [place] # (Auto) 0.18 (0.11-0.59) K/uL Eos # (Auto) 0.04 (0-0.5) K/uL Baso # (Auto) 0.03 (0-0.2) K/uL Absolute Nucleated RBC 0.02 H (0-0) K/uL Nucleated RBC % (auto) 1.5 % Tear Drop Cells 1+ Ovalocytes 1+ ESR 2 (0-21) mm/hr PT 10.4 (9.0-12.0) Seconds INR 1.0 (0.9-1.1) APTT 20.0 L (21.0-31.0) Seconds PTT Ratio 0.7 POC Sodium (135-144) mmol/L Sodium (136-145) mmol/L POC Potassium (3.3-5.0) mmol/L Potassium (3.5-5.1) mmol/L POC Chloride (101-112) mmol/L Chloride (98-107) mmol/L Carbon Dioxide (21-32) mmol/L POC Total CO2 (24-31) mEq/l Anion Gap (3-11) POC Anion Gap (16-25) mmol/L POC BUN (7-18) mg/dl BUN (7-18) mg/dl Creatinine (0.6-1.2) mg/dl POC Creatinine (0.6-1.3) mg/dl Est Cr Clr Drug Dosing ml/min Est GFR ( Amer) Est GFR (Non-Af Amer) BUN/Creatinine Ratio (10-20) Glucose (70-99) mg/dl POC Glucose (other) (70-99) mg/dl Lactate (0.4-2.0) mmol/L Calcium (8.5-10.1) mg/dl POC Ioniz Calcium Alina (1.12-1.32) mmol/l Magnesium (1.8-2.4) mg/dl Ferritin (8-388) ng/ml Total Bilirubin (0.2-1) mg/dl AST (15-37) U/L ALT (12-78) U/L Alkaline Phosphatase (45-117) U/L Total Creatine Kinase (26-192) U/L CK-MB (CK-2) (0.5-3.6) ng/ml CK/CKMB % Calc Troponin I (0-0.045) ng/ml C-Reactive Protein (0-0.29) mg/dl NT-Pro-B Natriuret Pep (0-1800) pg/ml Total Protein (6.4-8.2) gm/dl Albumin (3.4-5.0) gm/dl Globulin (2.5-4.0) gm/dl Albumin/Globulin Ratio (0.9-2) Procalcitonin (0-0.5) ng/ml Urine Color Urine Appearance (Clear) Urine pH (4.5-7.5) Ur Specific Kelly (1.000-1.030) Urine Protein (Negative) Urine Glucose (UA) (Negative) Urine Ketones (Negative) Urine Blood (Negative) Urine Nitrite (Negative) Urine Bilirubin (Negative) Urine Urobilinogen (Negative) Ur Leukocyte Esterase (Negative) Urine WBC (Auto) (0-5) /hpf Urine RBC (Auto) (0-4) /hpf U Hyaline Cast (Auto) (0-5) /lpf U Epithel Cells (Auto) (0-5) /lpf Urine Bacteria (Auto) (Negative) Influenza Type A (PCR) (Neg) Influenza Type B (PCR) (Neg) Blood Type Antibody Screen 11/10/19 11/10/19 11/10/19 Range/Units 07:20 08:12 08:38 WBC (4.8-10.8) K/uL RBC (4.2-5.4) M/uL Hgb (12.0-16.0) g/dL POC Hgb (12.0-16.0) g/dl Hct (37-47) % POC Hct (37-47) % MCV (80-100) fL MCH (25-34) pg MCHC (32-36) g/dL RDW Std Deviation (36.4-46.3) fL RDW Coeff of Jennifer (11.5-14.5) % Plt Count (130-400) K/uL MPV (7.4-10.4) fL Immature Gran % (Auto) % Neut % (Auto) % Lymph % (Auto) % [place] % (Auto) % Eos % (Auto) % Baso % (Auto) % Immature Gran # (Auto) (0.00-0.02) K/uL Neut # (Auto) (1.4-6.5) K/uL Lymph # (Auto) (1.2-3.4) K/uL [place] # (Auto) (0.11-0.59) K/uL Eos # (Auto) (0-0.5) K/uL Baso # (Auto) (0-0.2) K/uL Absolute Nucleated RBC (0-0) K/uL Nucleated RBC % (auto) % Tear Drop Cells Ovalocytes ESR (0-21) mm/hr PT (9.0-12.0) Seconds INR (0.9-1.1) APTT (21.0-31.0) Seconds PTT Ratio POC Sodium (135-144) mmol/L Sodium 140 (136-145) mmol/L POC Potassium (3.3-5.0) mmol/L Potassium 3.5 (3.5-5.1) mmol/L POC Chloride (101-112) mmol/L Chloride 106 (98-107) mmol/L Carbon Dioxide 26 (21-32) mmol/L POC Total CO2 (24-31) mEq/l Anion Gap 8.0 (3-11) POC Anion Gap (16-25) mmol/L POC BUN (7-18) mg/dl BUN 26 H (7-18) mg/dl Creatinine 1.49 H (0.6-1.2) mg/dl POC Creatinine (0.6-1.3) mg/dl Est Cr Clr Drug Dosing 24.7 ml/min Est GFR ( Amer) 37.3 Est GFR (Non-Af Amer) 32.1 BUN/Creatinine Ratio 17.6 (10-20) Glucose 252 H (70-99) mg/dl POC Glucose (other) (70-99) mg/dl Lactate (0.4-2.0) mmol/L Calcium 8.8 (8.5-10.1) mg/dl POC Ioniz Calcium Alina (1.12-1.32) mmol/l Magnesium 1.6 L (1.8-2.4) mg/dl Ferritin 97.6 (8-388) ng/ml Total Bilirubin 0.7 (0.2-1) mg/dl AST 31 (15-37) U/L ALT 23 (12-78) U/L Alkaline Phosphatase 54 (45-117) U/L Total Creatine Kinase 46 (26-192) U/L CK-MB (CK-2) < 1.0 (0.5-3.6) ng/ml CK/CKMB % Calc TNP Troponin I < 0.015 (0-0.045) ng/ml C-Reactive Protein < 0.29 (0-0.29) mg/dl NT-Pro-B Natriuret Pep 713 (0-1800) pg/ml Total Protein 6.1 L (6.4-8.2) gm/dl Albumin 3.9 (3.4-5.0) gm/dl Globulin 2.2 L (2.5-4.0) gm/dl Albumin/Globulin Ratio 1.8 (0.9-2) Procalcitonin 0.24 (0-0.5) ng/ml Urine Color Yellow Urine Appearance Clear (Clear) Urine pH 7.5 (4.5-7.5) Ur Specific Kelly 1.011 (1.000-1.030) Urine Protein 2+ H (Negative) Urine Glucose (UA) 1+ H (Negative) Urine Ketones Negative (Negative) Urine Blood 1+ H (Negative) Urine Nitrite Negative (Negative) Urine Bilirubin Negative (Negative) Urine Urobilinogen Negative (Negative) Ur Leukocyte Esterase Negative (Negative) Urine WBC (Auto) 1-5 (0-5) /hpf Urine RBC (Auto) 0-4 (0-4) /hpf U Hyaline Cast (Auto) 0 (0-5) /lpf U Epithel Cells (Auto) 5-10 H (0-5) /lpf Urine Bacteria (Auto) 1+ H (Negative) Influenza Type A (PCR) (Neg) Influenza Type B (PCR) (Neg) Blood Type Antibody Screen 11/10/19 11/10/19 11/10/19 Range/Units 08:45 09:02 09:03 WBC (4.8-10.8) K/uL RBC (4.2-5.4) M/uL Hgb (12.0-16.0) g/dL POC Hgb (12.0-16.0) g/dl Hct (37-47) % POC Hct (37-47) % MCV (80-100) fL MCH (25-34) pg MCHC (32-36) g/dL RDW Std Deviation (36.4-46.3) fL RDW Coeff of Jennifer (11.5-14.5) % Plt Count (130-400) K/uL MPV (7.4-10.4) fL Immature Gran % (Auto) % Neut % (Auto) % Lymph % (Auto) % [place] % (Auto) % Eos % (Auto) % Baso % (Auto) % Immature Gran # (Auto) (0.00-0.02) K/uL Neut # (Auto) (1.4-6.5) K/uL Lymph # (Auto) (1.2-3.4) K/uL [place] # (Auto) (0.11-0.59) K/uL Eos # (Auto) (0-0.5) K/uL Baso # (Auto) (0-0.2) K/uL Absolute Nucleated RBC (0-0) K/uL Nucleated RBC % (auto) % Tear Drop Cells Ovalocytes ESR (0-21) mm/hr PT (9.0-12.0) Seconds INR (0.9-1.1) APTT (21.0-31.0) Seconds PTT Ratio POC Sodium (135-144) mmol/L Sodium (136-145) mmol/L POC Potassium (3.3-5.0) mmol/L Potassium (3.5-5.1) mmol/L POC Chloride (101-112) mmol/L Chloride (98-107) mmol/L Carbon Dioxide (21-32) mmol/L POC Total CO2 (24-31) mEq/l Anion Gap (3-11) POC Anion Gap (16-25) mmol/L POC BUN (7-18) mg/dl BUN (7-18) mg/dl Creatinine (0.6-1.2) mg/dl POC Creatinine (0.6-1.3) mg/dl Est Cr Clr Drug Dosing ml/min Est GFR ( Amer) Est GFR (Non-Af Amer) BUN/Creatinine Ratio (10-20) Glucose (70-99) mg/dl POC Glucose (other) (70-99) mg/dl Lactate 2.3 H* (0.4-2.0) mmol/L Calcium (8.5-10.1) mg/dl POC Ioniz Calcium Alina (1.12-1.32) mmol/l Magnesium (1.8-2.4) mg/dl Ferritin (8-388) ng/ml Total Bilirubin (0.2-1) mg/dl AST (15-37) U/L ALT (12-78) U/L Alkaline Phosphatase (45-117) U/L Total Creatine Kinase (26-192) U/L CK-MB (CK-2) (0.5-3.6) ng/ml CK/CKMB % Calc Troponin I (0-0.045) ng/ml C-Reactive Protein (0-0.29) mg/dl NT-Pro-B Natriuret Pep (0-1800) pg/ml Total Protein (6.4-8.2) gm/dl Albumin (3.4-5.0) gm/dl Globulin (2.5-4.0) gm/dl Albumin/Globulin Ratio (0.9-2) Procalcitonin (0-0.5) ng/ml Urine Color Urine Appearance (Clear) Urine pH (4.5-7.5) Ur Specific Kelly (1.000-1.030) Urine Protein (Negative) Urine Glucose (UA) (Negative) Urine Ketones (Negative) Urine Blood (Negative) Urine Nitrite (Negative) Urine Bilirubin (Negative) Urine Urobilinogen (Negative) Ur Leukocyte Esterase (Negative) Urine WBC (Auto) (0-5) /hpf Urine RBC (Auto) (0-4) /hpf U Hyaline Cast (Auto) (0-5) /lpf U Epithel Cells (Auto) (0-5) /lpf Urine Bacteria (Auto) (Negative) Influenza Type A (PCR) Neg for Influ A (Neg) Influenza Type B (PCR) Neg for Influ B (Neg) Blood Type O Positive Antibody Screen NEGATIVE 11/10/19 Range/Units 09:19 WBC (4.8-10.8) K/uL RBC (4.2-5.4) M/uL Hgb (12.0-16.0) g/dL POC Hgb 9.2 L (12.0-16.0) g/dl Hct (37-47) % POC Hct 27 L (37-47) % MCV (80-100) fL MCH (25-34) pg MCHC (32-36) g/dL RDW Std Deviation (36.4-46.3) fL RDW Coeff of Jennifer (11.5-14.5) % Plt Count (130-400) K/uL MPV (7.4-10.4) fL Immature Gran % (Auto) % Neut % (Auto) % Lymph % (Auto) % [place] % (Auto) % Eos % (Auto) % Baso % (Auto) % Immature Gran # (Auto) (0.00-0.02) K/uL Neut # (Auto) (1.4-6.5) K/uL Lymph # (Auto) (1.2-3.4) K/uL [place] # (Auto) (0.11-0.59) K/uL Eos # (Auto) (0-0.5) K/uL Baso # (Auto) (0-0.2) K/uL Absolute Nucleated RBC (0-0) K/uL Nucleated RBC % (auto) % Tear Drop Cells Ovalocytes ESR (0-21) mm/hr PT (9.0-12.0) Seconds INR (0.9-1.1) APTT (21.0-31.0) Seconds PTT Ratio POC Sodium 140 (135-144) mmol/L Sodium (136-145) mmol/L POC Potassium 3.4 (3.3-5.0) mmol/L Potassium (3.5-5.1) mmol/L POC Chloride 103 (101-112) mmol/L Chloride (98-107) mmol/L Carbon Dioxide (21-32) mmol/L POC Total CO2 23 L (24-31) mEq/l Anion Gap (3-11) POC Anion Gap 18.0 (16-25) mmol/L POC BUN 24 H (7-18) mg/dl BUN (7-18) mg/dl Creatinine (0.6-1.2) mg/dl POC Creatinine 1.5 H (0.6-1.3) mg/dl Est Cr Clr Drug Dosing ml/min Est GFR ( Amer) Est GFR (Non-Af Amer) BUN/Creatinine Ratio (10-20) Glucose (70-99) mg/dl POC Glucose (other) 230 H (70-99) mg/dl Lactate (0.4-2.0) mmol/L Calcium (8.5-10.1) mg/dl POC Ioniz Calcium Alina 1.13 (1.12-1.32) mmol/l Magnesium (1.8-2.4) mg/dl Ferritin (8-388) ng/ml Total Bilirubin (0.2-1) mg/dl AST (15-37) U/L ALT (12-78) U/L Alkaline Phosphatase (45-117) U/L Total Creatine Kinase (26-192) U/L CK-MB (CK-2) (0.5-3.6) ng/ml CK/CKMB % Calc Troponin I (0-0.045) ng/ml C-Reactive Protein (0-0.29) mg/dl NT-Pro-B Natriuret Pep (0-1800) pg/ml Total Protein (6.4-8.2) gm/dl Albumin (3.4-5.0) gm/dl Globulin (2.5-4.0) gm/dl Albumin/Globulin Ratio (0.9-2) Procalcitonin (0-0.5) ng/ml Urine Color Urine Appearance (Clear) Urine pH (4.5-7.5) Ur Specific Kelly (1.000-1.030) Urine Protein (Negative) Urine Glucose (UA) (Negative) Urine Ketones (Negative) Urine Blood (Negative) Urine Nitrite (Negative) Urine Bilirubin (Negative) Urine Urobilinogen (Negative) Ur Leukocyte Esterase (Negative) Urine WBC (Auto) (0-5) /hpf Urine RBC (Auto) (0-4) /hpf U Hyaline Cast (Auto) (0-5) /lpf U Epithel Cells (Auto) (0-5) /lpf Urine Bacteria (Auto) (Negative) Influenza Type A (PCR) (Neg) Influenza Type B (PCR) (Neg) Blood Type Antibody Screen Imaging Data Radiologist's Impression: [place], [place] [phone] XRay Report Patient: BREE OQUENDO Admit Date: 11/10/19 MR#: [id number] Address1: [address] [place] [address] Acct ID:[id number] Address2: Date: 1935 [facility] Zip: [place] [address] Age: 83 Location: ED Sex: F Room/Bed: Att Phy: Diagnosis: FEVER,VOMITING Nati Phy: Mana Thompson DO Service Date: 11/10/19 Fam Phy: Interpreting Phy: Shun Blanchard MD Admit Phy: Ordering Phy: Celso Campos MD cc: ~ XR chest 1V portable CLINICAL HISTORY: SEPSIS COMPARISON STUDY: 10/01/2019 FINDINGS: The heart is normal in size. There are persistent and slightly progressive right lower lung zone airspace opacities. Given the persistence of the abnormality, underlying neoplastic process cannot be excluded. The left lung is clear. There is a suspected trace right pleural effusion.[ IMPRESSION: Persistent and slightly progressive right lower lung zone airspace opacities. Suspected trace right pleural effusion. ACT 112: Negative or not required by law. Electronically signed by: Shun Blanchard M.D. 11/10/2019 8:50 AM Dictated: 11/10/19847 Transcribed: 11/10/19847 ECG Data Indication: + tachycardia Rate (beats per minute): 128 Rhythm: + sinus tachycardia ECG Intervals/blocks: + Normal QT-c (490) ECG New Site: + Normal ECG ST segments: + ST depression (inferior); no ST elevation Comparison ECG Date: from (10/01/2019) Change: the following changes noted (Heart rate has increased) Blood Pressure Blood Pressure Findings: Elevated blood pressure Blood Pressure Disposition: elevated BP felt to be situational MDM Narrative This is an 83-year-old female on chemotherapy arrives to the emergency department with a fever. The patient was pancultured. She was found to have a white blood cell count of 1. She was swabbed for influenza as well as coronavirus. She was given multiple boluses of fluid. Repeat examination revealed improvement the patient's heart rate. She was also given Tylenol as well as Zofran. I did discuss the case with the hospitalist service who did agree to admit the patient. Patient was started on cefepime as well as Levaquin and was in agreement with the treatment plan. The patient was evaluated during the global COVID-19 pandemic, and that diagnosis was suspected/considered upon their initial presentation. Their evaluation, treatment and testing was consistent with current guidelines for patients who present with complaints or symptoms that may be related to COVID-19. Cardiac monitoring: An order was placed for continuous cardiac monitoring. The monitor shows a rate of 120 with Normal Sinus rhythm. Impression & Plan Fever of unknown origin, Neutropenic fever, Pancytopenia, Acute renal failure, Breast cancer, Pneumonia Discharge Plan Visit Data *Final* Discharge Date/Time: 11/10/19 11:01 Chief Complaint: Fever ED Provider: Celso Campos Discharge Problem: Fever of unknown origin, Neutropenic fever, Pancytopenia, Acute renal failure, Breast cancer, Pneumonia Patient Disposition: Admitted As Inpatient Discharge Instructions Interventions: ED Discharge Assessment Last Done: 11/10/19 11:01 Discharge Problem: Acute renal failure Qualifiers: Acute renal failure type: unspecified Qualified Code(s): N17.9 - Acute kidney failure, unspecified Breast cancer Qualifiers: Breast location: unspecified site of breast Estrogen receptor status: unspecified Patient sex: female Laterality: unspecified laterality Qualified Code(s): C50.919 - Malignant neoplasm of unspecified site of unspecified female breast Pneumonia Qualifiers: Pneumonia type: due to unspecified organism Laterality: unspecified laterality Lung location: unspecified part of lung Qualified Code(s): J18.9 - Pneumonia, unspecified organism
[2019-11-10 08:45] LABS: Partial Thromboplastin Ratio 0.7; Prothrombin Time 10.4 Seconds (9.0-12.0)
[2019-11-10 08:47] LABS: Alanine Aminotransferase 23 U/L (12-78); Albumin Level 3.9 gm/dl (3.4-5.0); Aspartate Aminotransferase 31 U/L (15-37); BUN Creatinine Ratio 17.6 (10-20); Blood Urea Nitrogen 26 mg/dl (7-18); C Reactive Protein < 0.29 mg/dl (0-0.29); Calcium 8.8 mg/dl (8.5-10.1); Carbon Dioxide 26 mmol/L (21-32); Chloride 106 mmol/L (98-107); Creatinine Clr Calc Pharmacy 24.7 ml/min; Est GFR (African American) 37.3; Est GFR (Non-African American) 32.1; Glucose 252 mg/dl (70-99); Magnesium 1.6 mg/dl (1.8-2.4); Potassium 3.5 mmol/L (3.5-5.1); Sodium 140 mmol/L (136-145)
[2019-11-10 08:49] LABS: Ovalocytes 1+; Tear Drop Cells 1+
[2019-11-10 08:51] LABS: Albumin Globulin Ratio 1.8 (0.9-2); Alkaline Phosphatase 54 U/L (45-117); Bilirubin,Total 0.7 mg/dl (0.2-1); Creatine Kinase 46 U/L (26-192); Creatine Kinase MB < 1.0 ng/ml (0.5-3.6); Ferritin 97.6 ng/ml (8-388); Globulin 2.2 gm/dl (2.5-4.0); NT Pro B Type Natriuretic Pept 713 pg/ml (0-1800); Total Protein 6.1 gm/dl (6.4-8.2); Troponin I < 0.015 ng/ml (0-0.045)
--- NOTE | 2019-11-10 08:51 | XRay Report ---
XR chest 1V portable CLINICAL HISTORY: SEPSIS COMPARISON STUDY: 10/01/2019 FINDINGS: The heart is normal in size. There are persistent and slightly progressive right lower lung zone airspace opacities. Given the persistence of the abnormality, underlying neoplastic process can not be excluded. The left lung is clear. There is a suspected trace right pleural effusion.[ IMPRESSION: Persistent and slightly progressive right lower lung zone airspace opacities. Suspected t race right pleural effusion. ACT 112: Negative or not required by law. Electronically signed by: Shun Blanchard M.D. 11/10/2019 8:50 AM
[2019-11-10 09:31] LABS: iSTAT Creatinine 1.5 mg/dl (0.6-1.3); iSTAT Hemoglobin 9.2 g/dl (12.0-16.0); iSTAT Ionized Calcium 1.13 mmol/l (1.12-1.32); iSTAT Potassium 3.4 mmol/L (3.3-5.0)
[2019-11-10 09:58] LABS: Appearance Urine Clear (Clear); Bacteria Urine Automated 1+ (Negative); Bilirubin Urine Negative (Negative); Blood Urine 1+ (Negative); Cast Urine Automated 0 /lpf (0-5); Color Urine Yellow; Glucose Urine UA 1+ (Negative); Ketones Urine Negative (Negative); Leukocyte Esterase Urine Negative (Negative); Nitrite Urine Negative (Negative); RBC Urine Automated 0-4 /hpf (0-4); Specific Gravity Urine 1.011 (1.000-1.030); Urobilinogen Urine Negative (Negative); pH Urine 7.5 (4.5-7.5)
[2019-11-10 10:00] LABS: Protein Urine 2+ (Negative); Sulfosalicylic Acid Urine Positive (Negative)
[2019-11-10 10:17] LABS: Influenza A virus by PCR Neg for Influ A (Neg); Influenza B virus by PCR Neg for Influ B (Neg)
--- NOTE | 2019-11-10 10:38 | Electrocardiogram Report ---
Test Reason : Blood Pressure : / mmHG Vent. Rate : 128 BPM Atrial Rate : 136 BPM P-R Int : 160 ms QRS Dur : 082 ms QT Int : 336 ms P-R-T Axes : 000 012 224 degrees QTc Int : 490 ms Poor data quality, interpretation may be adversely affected Probable Sinus tachycardia Low voltage QRS Inferior ST abnormality Abnormal ECG When compared with ECG of 01-OCT-2019 18:31, Vent. rate has increased BY 53 BPM Confirmed by Juvenal Reid ([id number]) on 11/10/2019 10:38:04 AM Referred By: REFERRED SELF Confirmed By:Juvenal Reid
--- NOTE | 2019-11-10 10:40 | Electrocardiogram Report ---
Test Reason : Blood Pressure : / mmHG Vent. Rate : 111 BPM Atrial Rate : 094 BPM P-R Int : 000 ms QRS Dur : 078 ms QT Int : 332 ms P-R-T Axes : 000 014 236 degrees QTc Int : 451 ms Poor data quality, interpretation may be adversely affected Atrial fibrillation with rapid ventricular response with premature ventricular or aberrantly conducte d complexes Low voltage QRS Possible Anterolateral infarct , age undetermined Nonspecific ST and T wave abnormality Abnormal ECG When compared with ECG of 10-NOV-2019 08:21, (unconfirmed) Atrial fibrillation has replaced Sinus rhythm Borderline criteria for Anterolateral infarct are now Present Confirmed by Juvenal Reid ([id number]) on 11/10/2019 10:40:35 AM Referred By: REFERRED SELF Confirmed By:Juvenal Reid
[2019-11-10] MEDS ORDERED: ALPRAZolam 0.25 MG TABLET PO PRN (11:25)
[2019-11-10] MEDS ORDERED: OXYCODONE/ACETAMINOPHEN 5mg/325mg TAB PO PRN (11:25)
[2019-11-10] MEDS ORDERED: ONDANSETRON INJ 2 MG/ML 2 ML VIAL IV PRN (11:25)
[2019-11-10] MEDS ORDERED: VANCOMYCIN CONSULT ACTIVE PRN (11:25)
[2019-11-10] MEDS ORDERED: GLUCOSE 10 TABS/TUBE PO PRN ×2 (11:25→14:15)
[2019-11-10] MEDS ORDERED: GLUCAGON FOR INJ 1 MG VIAL SQ PRN (11:25)
[2019-11-10] MEDS ORDERED: GLUCOSE 40% GEL 15 GM TUBE PO PRN ×2 (11:25→14:15)
[2019-11-10] MEDS ORDERED: ACETAMINOPHEN 325 MG TAB PO PRN (11:25)
[2019-11-10] MEDS ORDERED: CONSULT PHARMACY STA (11:25)
[2019-11-10] MEDS ORDERED: DEXTROSE 50% 50 ML SYRINGE IV PRN ×2 (11:25→14:15)
[2019-11-10] MEDS ORDERED: PIPERACILL/TAZOBAC CONSULT ACTIVE PRN (11:25)
[2019-11-10] MEDS ORDERED: CARBOHYDRATES FOR HYPOGLYCEMIA PO PRN ×2 (11:25→14:15)
[2019-11-10] MEDS ORDERED: PHARMACY GLYCEMIC MGMT CONSULT PRN (11:44)
[2019-11-10] MEDS ORDERED: VANCOMYCIN HCL 1,500 MG in SODIUM CHLORIDE 0.9% 500 ML IV STA (11:45)
[2019-11-10] MEDS ORDERED: PIPERACILLIN/TAZOBACTAM 4.5 GM in DEXTROSE 5% 100 ML IV STA (11:46)
[2019-11-10] MEDS ORDERED: INSULIN GLARGINE SOLOSTAR 100 UNITS/ML 3 ML PEN SC ONE (12:00)
[2019-11-10] MEDS: NSS + 20MEQ KCL 20 MEQ/1,000 ML BAG IV SCH ×2 (12:45→23:38)
[2019-11-10] MEDS: INSULIN ASPART 100 UNITS/ML 3 ML PEN SC SCH ×3 (13:19→21:11)
--- NOTE | 2019-11-10 13:46 | Pharmacy Report ---
Pharmacy Abx Initial Consult - Date of Service November 10, 2019 - Pharmacy Dosing Scope Date of Consult: 11/10/2019 Consultation requested by: Dr. López Pharmacy is consulted to initiate Vancomycin and Zosyn IV dosing therapy, order appropriate labs and adjust drug dose/frequency. - Subjective The patient is a 83 year old F admitted on 11/10/19 10:21. - Objective Height: 5 ft 4 in Weight: 59.1 kg Vital Signs (Past 12hrs): Vital Signs Temp Pulse Pulse Resp BP BP Pulse Ox 11/10/19 11:26 36.9 C 83 18 112/67 99 11/10/19 11:00 82 21 113/49 L 98 11/10/19 10:45 85 19 114/71 98 11/10/19 10:30 83 17 118/49 L 98 11/10/19 10:15 84 21 117/53 L 96 11/10/19 10:00 87 22 122/53 L 96 11/10/19 09:45 86 17 134/72 98 11/10/19 09:30 88 21 121/60 98 11/10/19 09:15 91 H 20 142/73 H 99 11/10/19 09:09 92 H 20 141/80 H 99 11/10/19 08:58 107 H 17 93 11/10/19 08:30 118 H 18 90/59 L 99 11/10/19 08:20 94 11/10/19 08:13 37.4 C 133 H 17 128/79 90 11/10/19 08:11 135 H 19 128/79 97 Lab Results (24hrs): Laboratory Tests (24 Hours) 11/10/19 11/10/19 11/10/19 08:12 07:20 07:20 WBC Neut # (Auto) ESR 2 Creatinine 1.49 H Est Cr Clr Drug Dosing 24.7 Total Creatine Kinase 46 C-Reactive Protein < 0.29 Procalcitonin 0.24 11/10/19 07:20 WBC 1.67 L Neut # (Auto) 1.08 L ESR Creatinine Est Cr Clr Drug Dosing Total Creatine Kinase C-Reactive Protein Procalcitonin Micro Results: 11/10/19 08:38 Urine Culture - Pending Urine,Clean Catch 11/10/19 08:55 Aerobic Blood Culture - Pending Blood Anaerobic Blood Culture - Pending 04/27/20 08:47 Aerobic Blood Culture - Pending Blood Anaerobic Blood Culture - Pending - Risk Factors for Resistance * Hospitalization for 48 hours or more within the past 90 days * Immunocompromised (on Ibrance for h/o breast cancer) * Antimicrobial use within the last 90 days: Augmentin & Doxycycline - Assessment & Plan Assessment 83 year old F admitted secondary to febrile illness from suspected pulmonary source * Recently hospitalized in September 2019 secondary to pneumonia * PMHx significant for T2DM, CKD III (baseline SCr ~ 1.2), metastatic breast cancer on Ibrance * Upon admission: WBCs 1.7K, Neutrophils 1.08K, Lactate 2.3 down to 1.1, PCT unreliable in cancer patients, SCr elevated at 1.49, afebrile * Negative for influenza A/B, Covid-19 test pending, Urine culture pending, Blood Culture x 2 pending Plan Vancomycin + Zosyn for treatment of pulmonary infection Vancomycin IV * Estimated PK Parameters: Vd 0.6 L/kg, Tadeo 0.025 hr-1, t1/2 ~27 hr * Loading dose: 1500 mg (25 mg/kg) * Maintenance dose: 1000 mg IV (17 mg/kg) every 24 hours * Goal trough level: 15 to 20 mcg/mL * Trough level ordered for 11/12 prior to the 3rd maintenance dose to ensure proper dosing given renal function and severity of illness Piperacillin/tazobactam * 4.5 g bolus administered over 30 minutes, then 3.375 g IV extended infusion every 8 hours for CrCl greater than 20 mL/min Pharmacy will continue to follow and will adjust dose/frequency as necessary. Thank you.
--- NOTE | 2019-11-10 14:02 | Pharmacy Report ---
Glycemic Control Consultation - Date of Service November 10, 2019 - Scope Scope: Glycemic Pharmacist consulted for glycemic control and to write orders per [facility] inpatient glycemic control protocol. - Objective Weight: 59.1 kg Accuchecks BSG (last 24hrs): 11/10/19 11/10/19 11/10/19 08:12 09:19 12:42 Glucose 252 H POC Glucose 190 H POC Glucose (other) 230 H Laboratory Data (last 24hrs): 11/10/19 08:12 Potassium 3.5 Carbon Dioxide 26 Anion Gap 8.0 Creatinine 1.49 H Est Cr Clr Drug Dosing 24.7 - Recent Pertinent Medications Outpatient Anti-diabetic Regimen: * Tradjenta 5 mg PO qAM * A1c = pending (last was 6.7% in July 2019 but difficult to interpret secondary to transfusion) Risk Factors for Insulin Resistance: * Infection: Vancomycin + Zosyn * IVF: NS + 20 KCl at 80 mL/hr * Diet: T2DM - Assessment & Plan Assessment & Plan: ASSESSMENT: * 83 yo F admitted secondary to febrile illness suspected to be from pulmonary source, covid-19 pending * Managed as outpatient on Tradjenta 5 mg daily, last A1c difficult to interpret secondary to transfusion, will re-order * BSG elevated at 252 mg/dL upon admission, down to 190 mg/dL at lunch * Insulin regimens will be guided by previous admission data * Will time medications to align with Covid-19 precautions PLAN FOR INPATIENT GLYCEMIC CONTROL: * Pt is maintained on oral antidiabetic agents as an outpatient * Oral agents are not recommended for inpatient use d/t drug interactions, changing PO intake, and difficulty titrating for acute hyper/hypoglycemia. ADA recommends re-initiating outpatient oral agents 1-2 days prior to disch arge if/when appropriate if they were held on admission. * Will hold oral agents for admission and utilize SQ basal bolus insulin regimen which is the recommended regimen for inpatient glycemic control. * Basal insulin * Lantus 15 units x 1 * Lantus 0-10 units SQ BID - see eMAR for further details * Bolus insulin * NovoLog per scale ACHS or Q6hrs while NPO * Goal Range: Low 110 mg/dL - High 140 mg/dL * Correction Factor: 25 mg/dL/unit * Nutritional / Prandial insulin per carb ratio of 1 unit per 8 grams CHO consumed * Please note that the plan above was derived based on current level of insulin resistance and hospital stress. These recommendations are appropriate for inpatient admission only. Plan of care upon discharge will need to be reassessed to avoid potential outpatient hypo/hyperglycemia. Thank you.
[2019-11-10] MEDS ORDERED: GLUCAGON FOR INJ 1 MG VIAL IM PRN (14:15)
--- NOTE | 2019-11-10 16:27 | History & Physical Report ---
Date of Service November 10, 2019 Assessment & Plan (1) Neutropenic fever: 83 year old female with history of Breast Cancer with Mets on Chemo- Ibrance, Pancytopenia, Paroxysmal Atrial Fibrillation, DM 2, Hypertension, presenting with fever and cough. POSSIBLE SEPSIS SECONDARY TO PNEUMONIA, [employer] admitted last September 2019 for Right sided pneumonia possible persistent vs. health care associated pneumonia sepsis protocol ordered including IV fluids, serial lactic aci lactic acid normalized CT chest ordered Blood cultures: pending sputum culture: pending Nasal MRSA: pending Covid: pending start Vanco + Zosyn IV appropriate isolation precautions ID consulted NEUTROPENIC FEVER management per above pancytopenia like from chemotherapy Hem/Onc consulted METASTATIC BREAST CANCER ON CHEMO hold Ibrance TEMPORAL ARTERITIS Actemra held by [employer] Counselor in light of PNA last month PAROXYSMAL ATRIAL FIBRILLATION Hold Metoprolol in light of borderline BP HYPERTENSION hold Amlodipine in light of borderline BP DM 2 hold Tradjenta ISS for now DVT prophylaxis history of right rectus sheath hematoma hold lovenox/heparin SCDs only Disposition pending lives at home with family Admission and Anticipated Discharge Date Admission Date: November 10, 2019 History of Present Illness 83 year old female with history of Breast Cancer with Mets on Chemo- Ibrance, Pancytopenia, Paroxysmal Atrial Fibrillation, DM 2, Hypertension, presenting with fever and cough. Patient was admitted to [facility] last September 2019 for pneumonia. Patient reports that she developed fever of 103 last night night associated with dry cough and nausea. Denies shortness of breath, sputum production, hemoptysis, chest pain. Denies abdominal pain, dysuria, hematuria, diarrhea. At the ER, patient's CXR right lower lobe infiltrate and WBC of 1.67. On exam, patient seen in her room at Telemetry unit. She is resting, comfortable, on room air, not in distress. States she feels better compared to admission. No other symptoms. Primary Care Provider: Mana Thompson DO Allergies Allergy/AdvReac Type Severity Reaction Status Date / Time Influenza Virus Vaccines Allergy Mild SWELLING Verified 11/10/19 09:24 Home Medications Home Medications Medication Instructions Recorded Confirmed Type alprazolam [Xanax] 0.25 mg PO DAILY PRN 03/28/18 11/10/19 History ascorbic acid (vitamin C) [Vitamin 500 mg PO QAM 03/28/18 11/10/19 History C] calcium carbonate-vitamin D3 1 tab PO BID 03/28/18 11/10/19 History [Os-Arcadio 500 + D3] escitalopram oxalate [Lexapro] 10 mg PO QAM 03/28/18 11/10/19 History multivitamin 1 tab PO QAM 03/28/18 11/10/19 History rosuvastatin [Crestor] 20 mg PO QAM 03/28/18 11/10/19 History Tradjenta 5 mg PO QAM 07/07/19 11/10/19 History cranberry 400 mg PO QAM 07/07/19 11/10/19 History amitriptyline 25 mg PO HS 07/12/19 11/10/19 History amlodipine 5 mg PO DAILY 07/12/19 11/10/19 History esomeprazole magnesium [Nexium] 20 mg PO DAILY 07/12/19 11/10/19 History latanoprost 1 drp OPHTHALMIC (EYE) PM 07/12/19 11/10/19 History ondansetron HCl [Zofran] 4 mg PO Q6H PRN 07/12/19 11/10/19 History Ibrance 100 mg PO DAILY 10/01/19 11/10/19 History metoprolol tartrate 100 mg PO BID 10/01/19 11/10/19 History oxycodone-acetaminophen [Percocet] 1 tab PO Q8H PRN 10/01/19 11/10/19 History Past Med/Surg History Medical History Acute hypoxemic respiratory failure Anxiety Arthritis Atrial tachycardia Cataracts, bilateral CKD (chronic kidney disease), stage III DM type 2 (diabetes mellitus, type 2) Dyslipidemia Goals of care, counseling/discussion HTN (hypertension) HX: breast cancer Metastatic breast cancer S/P admission to ICU (intensive care unit) Temporal arteritis Surgical History H/O right mastectomy Jun 2018 History of appendectomy History of cataract surgery S/P partial colectomy Jul 2019 S/P LIZBETH-BSO Family History Mother Diabetes Social History Preferred Language: Japanese Communication Ability: Effective Assistant Community Manager Required: No Beliefs That Will Affect Care: None marital status: Current Living Situation: Spouse Current Living Situation Comment: lives with Other Information That Helps Us Care for You: No Feels Safe at Home: Yes Safety Concerns: Feels Safe At This Time Smoking Status: Never smoker Hx Alcohol Use: No Hx Substance Use: No Review of Systems Review of Systems: All systems reviewed & are unremarkable except as noted in HPI & below Physical Exam Physical Exam: General- oriented x 3, not in distress, speaks in sentences with no effort or accessory muscle use Head- atraumatic Eyes- PERRL, EOMI, anicteric ENT- oropharynx clear Neck- supple, no JVD, no adenopathy, no thyromegaly; carotids +2/2, no bruits appreciated Lungs- (+) crackles at the right lower lobe no wheezing Heart- normal rate, regular rhythm; no murmur, no gallop, no rub appreciated Abdomen- normal bowel sounds, nondistended, soft, nontender, no masses or hepatosplenomegaly Extremities- no pretibial edema, no calf tenderness; peripheral pulses intact Neuro- alert, oriented x 3; CN 2-12 grossly intact; motor 5/5 bilaterally;sensation 100% on all extremities; no other gross focal neurologic deficits Skin- warm & dry Results & Data Results & Data ([facility]) Vital Signs (Past 12 Hours) Vital Signs Temp Pulse Pulse Resp BP BP Pulse Ox 11/10/19 16:17 37.1 C 77 18 102/60 94 11/10/19 15:05 76 11/10/19 14:53 95 11/10/19 11:26 36.9 C 83 18 112/67 99 11/10/19 11:25 84 11/10/19 11:00 82 21 113/49 L 98 11/10/19 10:45 85 19 114/71 98 11/10/19 10:30 83 17 118/49 L 98 11/10/19 10:15 84 21 117/53 L 96 11/10/19 10:00 87 22 122/53 L 96 11/10/19 09:45 86 17 134/72 98 11/10/19 09:30 88 21 121/60 98 11/10/19 09:15 91 H 20 142/73 H 99 11/10/19 09:09 92 H 20 141/80 H 99 11/10/19 08:58 107 H 17 93 11/10/19 08:30 118 H 18 90/59 L 99 11/10/19 08:20 94 11/10/19 08:13 37.4 C 133 H 17 128/79 90 11/10/19 08:11 135 H 19 128/79 97 Pulse Ox 11/10/19 16:17 11/10/19 15:05 11/10/19 14:53 11/10/19 11:26 11/10/19 11:25 99 11/10/19 11:00 11/10/19 10:45 11/10/19 10:30 11/10/19 10:15 11/10/19 10:00 11/10/19 09:45 11/10/19 09:30 11/10/19 09:15 11/10/19 09:09 11/10/19 08:58 11/10/19 08:30 11/10/19 08:20 11/10/19 08:13 11/10/19 08:11 Laboratory Results Laboratory Results - last 24 hr 11/10/19 11/10/19 11/10/19 07:20 07:20 07:20 WBC 1.67 L RBC 3.01 L Hgb 10.2 L POC Hgb Hct 29.9 L POC Hct MCV 99.3 MCH 33.9 MCHC 34.1 RDW Std Deviation 66.0 H RDW Coeff of Jennfier 18.4 H Plt Count 121 L MPV 9.7 Immature Gran % (Auto) 1.2 Neut % (Auto) 64.6 Lymph % (Auto) 19.2 Robertson % (Auto) 10.8 Eos % (Auto) 2.4 Baso % (Auto) 1.8 Immature Gran # (Auto) 0.02 Neut # (Auto) 1.08 L Lymph # (Auto) 0.32 L Robertson # (Auto) 0.18 Eos # (Auto) 0.04 Baso # (Auto) 0.03 Absolute Nucleated RBC 0.02 H Nucleated RBC % (auto) 1.5 Tear Drop Cells 1+ Ovalocytes 1+ ESR 2 PT 10.4 INR 1.0 APTT 20.0 L PTT Ratio 0.7 POC Sodium Sodium POC Potassium Potassium POC Chloride Chloride Carbon Dioxide POC Total CO2 Anion Gap POC Anion Gap POC BUN BUN Creatinine POC Creatinine Est Cr Clr Drug Dosing Est GFR ( Amer) Est GFR (Non-Af Amer) BUN/Creatinine Ratio Glucose POC Glucose POC Glucose (other) Lactate Calcium POC Ioniz Calcium Alina Magnesium Ferritin Total Bilirubin AST ALT Alkaline Phosphatase Total Creatine Kinase CK-MB (CK-2) CK/CKMB % Calc Troponin I C-Reactive Protein NT-Pro-B Natriuret Pep Total Protein Albumin Globulin Albumin/Globulin Ratio Procalcitonin Urine Color Urine Appearance Urine pH Ur Specific Cadott Urine Protein Urine Glucose (UA) Urine Ketones Urine Blood Urine Nitrite Urine Bilirubin Urine Urobilinogen Ur Leukocyte Esterase Urine WBC (Auto) Urine RBC (Auto) U Hyaline Cast (Auto) U Epithel Cells (Auto) Urine Bacteria (Auto) Nasal Screen MRSA (PCR) Influenza Type A (PCR) Influenza Type B (PCR) SARS-CoV-2 RNA (RT-PCR) Blood Type Antibody Screen 11/10/19 11/10/19 11/10/19 07:20 08:12 08:38 WBC RBC Hgb POC Hgb Hct POC Hct MCV MCH MCHC RDW Std Deviation RDW Coeff of Jennifer Plt Count MPV Immature Gran % (Auto) Neut % (Auto) Lymph % (Auto) Robertson % (Auto) Eos % (Auto) Baso % (Auto) Immature Gran # (Auto) Neut # (Auto) Lymph # (Auto) Robertson # (Auto) Eos # (Auto) Baso # (Auto) Absolute Nucleated RBC Nucleated RBC % (auto) Tear Drop Cells Ovalocytes ESR PT INR APTT PTT Ratio POC Sodium Sodium 140 POC Potassium Potassium 3.5 POC Chloride Chloride 106 Carbon Dioxide 26 POC Total CO2 Anion Gap 8.0 POC Anion Gap POC BUN BUN 26 H Creatinine 1.49 H POC Creatinine Est Cr Clr Drug Dosing 24.7 Est GFR ( Amer) 37.3 Est GFR (Non-Af Amer) 32.1 BUN/Creatinine Ratio 17.6 Glucose 252 H POC Glucose POC Glucose (other) Lactate Calcium 8.8 POC Ioniz Calcium Alina Magnesium 1.6 L Ferritin 97.6 Total Bilirubin 0.7 AST 31 ALT 23 Alkaline Phosphatase 54 Total Creatine Kinase 46 CK-MB (CK-2) < 1.0 CK/CKMB % Calc TNP Troponin I < 0.015 C-Reactive Protein < 0.29 NT-Pro-B Natriuret Pep 713 Total Protein 6.1 L Albumin 3.9 Globulin 2.2 L Albumin/Globulin Ratio 1.8 Procalcitonin 0.24 Urine Color Yellow Urine Appearance Clear Urine pH 7.5 Ur Specific Cadott 1.011 Urine Protein 2+ H Urine Glucose (UA) 1+ H Urine Ketones Negative Urine Blood 1+ H Urine Nitrite Negative Urine Bilirubin Negative Urine Urobilinogen Negative Ur Leukocyte Esterase Negative Urine WBC (Auto) 1-5 Urine RBC (Auto) 0-4 U Hyaline Cast (Auto) 0 U Epithel Cells (Auto) 5-10 H Urine Bacteria (Auto) 1+ H Nasal Screen MRSA (PCR) Influenza Type A (PCR) Influenza Type B (PCR) SARS-CoV-2 RNA (RT-PCR) Blood Type Antibody Screen 11/10/19 11/10/19 11/10/19 08:45 08:45 09:02 WBC RBC Hgb POC Hgb Hct POC Hct MCV MCH MCHC RDW Std Deviation RDW Coeff of Jennifer Plt Count MPV Immature Gran % (Auto) Neut % (Auto) Lymph % (Auto) Robertson % (Auto) Eos % (Auto) Baso % (Auto) Immature Gran # (Auto) Neut # (Auto) Lymph # (Auto) Robertson # (Auto) Eos # (Auto) Baso # (Auto) Absolute Nucleated RBC Nucleated RBC % (auto) Tear Drop Cells Ovalocytes ESR PT INR APTT PTT Ratio POC Sodium Sodium POC Potassium Potassium POC Chloride Chloride Carbon Dioxide POC Total CO2 Anion Gap POC Anion Gap POC BUN BUN Creatinine POC Creatinine Est Cr Clr Drug Dosing Est GFR ( Amer) Est GFR (Non-Af Amer) BUN/Creatinine Ratio Glucose POC Glucose POC Glucose (other) Lactate 2.3 H* Calcium POC Ioniz Calcium Alina Magnesium Ferritin Total Bilirubin AST ALT Alkaline Phosphatase Total Creatine Kinase CK-MB (CK-2) CK/CKMB % Calc Troponin I C-Reactive Protein NT-Pro-B Natriuret Pep Total Protein Albumin Globulin Albumin/Globulin Ratio Procalcitonin Urine Color Urine Appearance Urine pH Ur Specific Cadott Urine Protein Urine Glucose (UA) Urine Ketones Urine Blood Urine Nitrite Urine Bilirubin Urine Urobilinogen Ur Leukocyte Esterase Urine WBC (Auto) Urine RBC (Auto) U Hyaline Cast (Auto) U Epithel Cells (Auto) Urine Bacteria (Auto) Nasal Screen MRSA (PCR) Influenza Type A (PCR) Neg for Influ A Influenza Type B (PCR) Neg for Influ B SARS-CoV-2 RNA (RT-PCR) Pending Blood Type Antibody Screen 11/10/19 11/10/19 11/10/19 09:03 09:19 10:50 WBC RBC Hgb POC Hgb 9.2 L Hct POC Hct 27 L MCV MCH MCHC RDW Std Deviation RDW Coeff of Jennifer Plt Count MPV Immature Gran % (Auto) Neut % (Auto) Lymph % (Auto) Robertson % (Auto) Eos % (Auto) Baso % (Auto) Immature Gran # (Auto) Neut # (Auto) Lymph # (Auto) Robertson # (Auto) Eos # (Auto) Baso # (Auto) Absolute Nucleated RBC Nucleated RBC % (auto) Tear Drop Cells Ovalocytes ESR PT INR APTT PTT Ratio POC Sodium 140 Sodium POC Potassium 3.4 Potassium POC Chloride 103 Chloride Carbon Dioxide POC Total CO2 23 L Anion Gap POC Anion Gap 18.0 POC BUN 24 H BUN Creatinine POC Creatinine 1.5 H Est Cr Clr Drug Dosing Est GFR ( Amer) Est GFR (Non-Af Amer) BUN/Creatinine Ratio Glucose POC Glucose POC Glucose (other) 230 H Lactate 1.1 Calcium POC Ioniz Calcium Alina 1.13 Magnesium Ferritin Total Bilirubin AST ALT Alkaline Phosphatase Total Creatine Kinase CK-MB (CK-2) CK/CKMB % Calc Troponin I C-Reactive Protein NT-Pro-B Natriuret Pep Total Protein Albumin Globulin Albumin/Globulin Ratio Procalcitonin Urine Color Urine Appearance Urine pH Ur Specific Cadott Urine Protein Urine Glucose (UA) Urine Ketones Urine Blood Urine Nitrite Urine Bilirubin Urine Urobilinogen Ur Leukocyte Esterase Urine WBC (Auto) Urine RBC (Auto) U Hyaline Cast (Auto) U Epithel Cells (Auto) Urine Bacteria (Auto) Nasal Screen MRSA (PCR) Influenza Type A (PCR) Influenza Type B (PCR) SARS-CoV-2 RNA (RT-PCR) Blood Type O Positive Antibody Screen NEGATIVE 11/10/19 11/10/19 11/10/19 12:23 12:42 16:15 WBC RBC Hgb POC Hgb Hct POC Hct MCV MCH MCHC RDW Std Deviation RDW Coeff of Jennifer Plt Count MPV Immature Gran % (Auto) Neut % (Auto) Lymph % (Auto) Robertson % (Auto) Eos % (Auto) Baso % (Auto) Immature Gran # (Auto) Neut # (Auto) Lymph # (Auto) Robertson # (Auto) Eos # (Auto) Baso # (Auto) Absolute Nucleated RBC Nucleated RBC % (auto) Tear Drop Cells Ovalocytes ESR PT INR APTT PTT Ratio POC Sodium Sodium POC Potassium Potassium POC Chloride Chloride Carbon Dioxide POC Total CO2 Anion Gap POC Anion Gap POC BUN BUN Creatinine POC Creatinine Est Cr Clr Drug Dosing Est GFR ( Amer) Est GFR (Non-Af Amer) BUN/Creatinine Ratio Glucose POC Glucose 190 H POC Glucose (other) Lactate 1.8 Calcium POC Ioniz Calcium Alina Magnesium Ferritin Total Bilirubin AST ALT Alkaline Phosphatase Total Creatine Kinase CK-MB (CK-2) CK/CKMB % Calc Troponin I C-Reactive Protein NT-Pro-B Natriuret Pep Total Protein Albumin Globulin Albumin/Globulin Ratio Procalcitonin Urine Color Urine Appearance Urine pH Ur Specific Cadott Urine Protein Urine Glucose (UA) Urine Ketones Urine Blood Urine Nitrite Urine Bilirubin Urine Urobilinogen Ur Leukocyte Esterase Urine WBC (Auto) Urine RBC (Auto) U Hyaline Cast (Auto) U Epithel Cells (Auto) Urine Bacteria (Auto) Nasal Screen MRSA (PCR) Pending Influenza Type A (PCR) Influenza Type B (PCR) SARS-CoV-2 RNA (RT-PCR) Blood Type Antibody Screen 11/10/19 16:57 WBC RBC Hgb POC Hgb Hct POC Hct MCV MCH MCHC RDW Std Deviation RDW Coeff of Jennifer Plt Count MPV Immature Gran % (Auto) Neut % (Auto) Lymph % (Auto) Robertson % (Auto) Eos % (Auto) Baso % (Auto) Immature Gran # (Auto) Neut # (Auto) Lymph # (Auto) Robertson # (Auto) Eos # (Auto) Baso # (Auto) Absolute Nucleated RBC Nucleated RBC % (auto) Tear Drop Cells Ovalocytes ESR PT INR APTT PTT Ratio POC Sodium Sodium POC Potassium Potassium POC Chloride Chloride Carbon Dioxide POC Total CO2 Anion Gap POC Anion Gap POC BUN BUN Creatinine POC Creatinine Est Cr Clr Drug Dosing Est GFR ( Amer) Est GFR (Non-Af Amer) BUN/Creatinine Ratio Glucose POC Glucose 139 H POC Glucose (other) Lactate Calcium POC Ioniz Calcium Alina Magnesium Ferritin Total Bilirubin AST ALT Alkaline Phosphatase Total Creatine Kinase CK-MB (CK-2) CK/CKMB % Calc Troponin I C-Reactive Protein NT-Pro-B Natriuret Pep Total Protein Albumin Globulin Albumin/Globulin Ratio Procalcitonin Urine Color Urine Appearance Urine pH Ur Specific Cadott Urine Protein Urine Glucose (UA) Urine Ketones Urine Blood Urine Nitrite Urine Bilirubin Urine Urobilinogen Ur Leukocyte Esterase Urine WBC (Auto) Urine RBC (Auto) U Hyaline Cast (Auto) U Epithel Cells (Auto) Urine Bacteria (Auto) Nasal Screen MRSA (PCR) Influenza Type A (PCR) Influenza Type B (PCR) SARS-CoV-2 RNA (RT-PCR) Blood Type Antibody Screen Code Status & VTE Plan VTE Prophylaxis Plan VTE Prophylaxis will be ordered: Yes
[2019-11-10] MEDS: PIPERACILLIN/TAZOBACTAM 3.375 GM in DEXTROSE 5% 100 ML IV SCH ×2 (16:51→23:24)
[2019-11-10] MEDS: LATANOPROST 0.005% OP SOLN 2.5 ML BTL OP SCH (20:49)
[2019-11-10] MEDS ORDERED: AMITRIPTYLINE HCL 25 MG TAB PO SCH (21:00)
[2019-11-10] MEDS ORDERED: LATANOPROST 0.005% OP SOLN 2.5 ML BTL OP SCH (21:00)
[2019-11-10] MEDS ORDERED: CALCIUM 600MG + VIT D 400 IU TAB PO SCH (21:00)
[2019-11-10] MEDS: INSULIN GLARGINE SOLOSTAR 100 UNITS/ML 3 ML PEN SC SCH (21:10)
[2019-11-10] MEDS: CALCIUM 600MG + VIT D 400 IU TAB PO SCH (21:35)
[2019-11-10] MEDS: AMITRIPTYLINE HCL 25 MG TAB PO SCH (21:36)
[2019-11-11 07:41] LABS: Hematocrit (blood only) 21.1 % (37-47); Hemoglobin 7.1 g/dL (12.0-16.0); Mean Corpuscular Hemoglobin 33.3 pg (25-34); Mean Corpuscular Hgb Conc 33.6 g/dL (32-36); Mean Corpuscular Volume 99.1 fL (80-100); Mean Platelet Volume 9.4 fL (7.4-10.4); Platelet Count 94 K/uL (130-400); RDW Coefficient of Variation 19.1 % (11.5-14.5); RDW Standard Deviation 67.3 fL (36.4-46.3); Red Blood Count 2.13 M/uL (4.2-5.4); White Blood Count 6.05 K/uL (4.8-10.8)
[2019-11-11 07:53] LABS: Basophils # (auto) 0.03 K/uL (0-0.2); Basophils % (auto) 0.5 %; Eosinophils # (auto) 0.08 K/uL (0-0.5); Eosinophils % (auto) 1.3 %; Immature Granulocytes # (auto) 0.04 K/uL (0.00-0.02); Immature Granulocytes % (auto) 0.7 %; Lymphocytes % (auto) 9.9 %; Monocytes % (auto) 14.9 %; Neutrophils % (auto) 72.7 %; Ovalocytes 1+; Schistocytes Occasional
[2019-11-11 07:59] LABS: Estimated Average Glucose 143 mg/dl; Hemoglobin A1C 6.6 % (4.5-5.6)
[2019-11-11] MEDS ORDERED: VANCOMYCIN HCL 1,000 MG in SODIUM CHLORIDE 0.9% 250 ML IV SCH (08:00)
[2019-11-11 08:06] LABS: BUN Creatinine Ratio 16.4 (10-20); Calcium 8.1 mg/dl (8.5-10.1); Creatinine Clr Calc Pharmacy 25.9 ml/min; Est GFR (African American) 39.5; Est GFR (Non-African American) 34.1; Potassium 4.1 mmol/L (3.5-5.1)
[2019-11-11] MEDS: PIPERACILLIN/TAZOBACTAM 3.375 GM in DEXTROSE 5% 100 ML IV SCH (08:45)
[2019-11-11] MEDS: ESCITALOPRAM OXALATE 10 MG TAB PO SCH (08:46)
[2019-11-11] MEDS: MULTIVITAMIN TAB PO SCH (08:46)
[2019-11-11] MEDS: ROSUVASTATIN CALCIUM 20 MG TAB PO SCH (08:46)
[2019-11-11] MEDS: PANTOprazole 40 MG TAB PO SCH (08:46)
[2019-11-11] MEDS: ASCORBIC ACID 500 MG TAB PO SCH (08:46)
[2019-11-11] MEDS ORDERED: MULTIVITAMIN TAB PO SCH (09:00)
[2019-11-11] MEDS ORDERED: METOPROLOL TARTRATE 50 MG TAB PO SCH (09:00)
[2019-11-11] MEDS ORDERED: ESCITALOPRAM OXALATE 10 MG TAB PO SCH (09:00)
[2019-11-11] MEDS ORDERED: NON-FORMULARY MEDICATION (Cranberry 400 MG) PO SCH (09:00)
[2019-11-11] MEDS ORDERED: ASCORBIC ACID 500 MG TAB PO SCH (09:00)
[2019-11-11] MEDS ORDERED: PANTOprazole 40 MG TAB PO SCH (09:00)
[2019-11-11] MEDS ORDERED: ROSUVASTATIN CALCIUM 20 MG TAB PO SCH (09:00)
[2019-11-11] MEDS: INSULIN ASPART 100 UNITS/ML 3 ML PEN SC SCH ×4 (09:09→20:47)
[2019-11-11] MEDS: CALCIUM 600MG + VIT D 400 IU TAB PO SCH ×2 (09:09→20:51)
[2019-11-11] MEDS: INSULIN GLARGINE SOLOSTAR 100 UNITS/ML 3 ML PEN SC SCH ×2 (09:10→20:46)
--- NOTE | 2019-11-11 09:38 | Consultation Report ---
DATE OF CONSULTATION: 11/11/2019 REASON FOR CONSULTATION: Neutropenic fever in an 83-year-old female patient with metastatic breast cancer. HISTORY OF PRESENT ILLNESS: Kristina Contreras is a very pleasant 83-year-old female well known to [facility], currently under my care with recently diagnosed metastatic breast cancer involving the transverse colon which was established on 07/17/2019. She was subsequently started on salvage Faslodex and Ibrance at that time. Unfortunately, Kristina has encountered difficulties during treatment, was admitted to [facility] in September 2019 for pneumonia. I had incorporated granulocyte colony stimulating growth factor to try to support her neutrophils upon discharge. Unfortunately, the patient developed a fever of 103 with a dry cough and nausea. Specifically she had denied shortness of breath, hemoptysis, chest pain or sputum production. She denies any issues with her abdomen. In the Emergency Room, chest x-ray revealed a right lower lobe infiltrate and urinalysis confirms a urinary tract infection. She is presently on broad-spectrum antibiotics. Concern was a possible COVID-19 despite patient has been in self quarantine virtually, only coming out for clinical appointments and blood work. She knows of no COVID positive contacts. Apparently, she was tested for the virus with results pending. PAST MEDICAL HISTORY: Includes anxiety, osteoarthritis, atrial tachycardia, bilateral cataracts, chronic kidney disease, type 2 diabetes mellitus, hypertension, metastatic breast cancer, temporal arteritis. PAST SURGICAL HISTORY: Status post right mastectomy, appendectomy, cataract surgery, partial colectomy, total abdominal hysterectomy, bilateral salpingo-oophorectomy. MEDICATIONS: Prior to admission include Xanax 0.25 mg p.o. daily p.r.n., vitamin C 500 mg p.o. daily, calcium carbonate with vitamin D 1 tablet p.o. b.i.d., Lexapro 10 mg p.o. daily, multivitamin 1 tablet p.o. daily, Crestor 20 mg p.o. daily, Tradjenta 5 mg p.o. daily, cranberry 400 mg p.o. daily, amitriptyline 25 mg p.o. at bedtime, amlodipine 5 mg p.o. daily, Nexium 20 mg p.o. every day, Ibrance 100 mg p.o. daily, metoprolol 100 mg p.o. b.i.d., Percocet 1 tablet p.o. q.8 hours p.r.n. and she receives Faslodex every 2 weeks. ALLERGIES: INFLUENZA VACCINE. FAMILY HISTORY: Positive for diabetes mellitus. SOCIAL HISTORY: Lives with her . She is a nonsmoker, nondrinker, non-illicit drug user. REVIEW OF SYSTEMS: As per HPI, most notably for fever, generalized weakness, fatigue and a dry cough. She also complains of intermittent nausea. SKIN: No rashes or lesions. No history of dermatoses. HEENT: She denies current headache, lightheadedness or dizziness. No visual or hearing deficits. No sinus symptoms, sore throat or dysphagia. LYMPH: No history of lymphoproliferative disease. CARDIAC: No current angina or palpitations. PULMONARY: She has a right lower lobe infiltrate. She is not acutely short of breath or dyspneic on exertion. Positive for dry cough. GASTROINTESTINAL: Negative for abdominal pain. Positive for occasional nausea. She has not vomited. No hematochezia, melena or kate rectal bleeding. GENITOURINARY: Urinalysis suggests underlying urinary tract infection. However, she has had no hematuria or dysuria. MUSCULOSKELETAL: Positive for history of osteoarthritis. No acute skeletal pain or focal muscle weakness. NEUROLOGIC: Negative for seizure, stroke, or migraine headache. ENDOCRINE: Positive for type 2 diabetes mellitus, negative for thyroid disease. HEMATOLOGIC: Positive for neutropenia and anemia, mild thrombocytopenia. PHYSICAL EXAMINATION: GENERAL: A very pleasant 83-year-old female, awake, alert and appropriate, in no acute distress. VITAL SIGNS: Temperature 37.1, pulse 94, respiratory rate 18, blood pressure 121/58. SKIN: Warm, dry, noncyanotic without petechia, rash or ecchymosis. HEENT: Head is atraumatic, normocephalic. Eyes PERRLA, EOMI. Nares are patent without rhinorrhea or discharge. Throat is clear. Tongue is midline. Mucous membranes are moist. NECK: Supple without JVD or thyromegaly. LYMPHATICS: No cervical, supraclavicular, axillary or inguinal palpable nodes. HEART: Regular rate and rhythm. No clicks, rubs, murmurs or gallops. LUNGS: Clear to auscultation bilaterally. ABDOMEN: Soft, nontender, nondistended, without palpable hepatosplenomegaly. EXTREMITIES: No clubbing, cyanosis or edema. NEUROLOGICALLY: She is awake, alert and oriented x3. Cranial nerves are grossly intact. RADIOGRAPHIC DATA: Chest x-ray reveals persistent slightly progressive right lower lung zone airspace opacities, suspected trace right pleural effusion. LABORATORY DATA: WBC count 6050, hemoglobin 7.1, platelet count 294,000, absolute neutrophil count 4400. Sodium 142, potassium 4.1, chloride 111, carbon dioxide 24, creatinine 1.42, BUN 23. IMPRESSION: 1. Urinary tract infection. 2. Right lower lobe pneumonia. 3. Metastatic breast cancer. 4. Temporal arteritis. 5. Paroxysmal atrial fibrillation. 6. Type 2 diabetes mellitus. PLAN: Kristina Contrreas is a pleasant 83-year-old female patient, well known to [facility], currently under my care receiving Ibrance and Faslodex in combination for recently diagnosed metastatic breast cancer involving the transverse colon. Diagnosis was established in July. She was started on treatment shortly thereafter. Kristina has had difficulties along the way; she was admitted back in September with pneumonia. She continues to have significant fluctuations in her WBCs and recently has received Neupogen to maintain her neutrophil count. While she was leukopenic on admission, her white cells have rebounded nicely out of the neutropenic range at present. She definitely suffers from urinary tract infection and followup on blood cultures is also recommended. She is presently on broad-spectrum antibiotics. We will plan on seeing her back in the office when she is medically stable. Perhaps consider dose reduction, particularly with Ibrance which is notorious for cytopenias, particularly neutropenia. She no longer needs neutropenic complications. The patient has not had COVID exposure; however, would keep her on precautions until nasopharyngeal testing confirms negativity. I will plan to see Kristina in the office shortly after discharge. Thank you very much for allowing me to participate in her care. I have nothing further to add, but perhaps offer her a unit or two of blood as her hemoglobin has fallen precipitously.
--- NOTE | 2019-11-11 09:48 | Infectious Disease Consult ---
Date of Consultation November 11, 2019 Assessment & Plan (1) Pancytopenia: likely due to chemo, resolved. ANC >1000. no fevers documented. would follow off of abx. suspect gnr in urine is colonization, only 1-5 wbc on UA and all inflammatory markers (crp, esr, procalcitonin) negative. (2) Breast cancer: History of Present Illness Attending Physician: Ezequiel López MD pt admitted with fever at home, has been afebrile since admission. initial wbc 1.6 ANC 1000. WBC increased to 6 today, ANC 4400. started on emperic abx for concern of neutropenic fever. CXR with right opacity felt to be neoplasm. remains on abx. blood cultures negative. urine culture with gnr but ua 1-5 wbc only. Flu negative, COVID pending. crp, procalcitonin and ESR negative. has h/o metastatic breast cancer on chemo. ID consulted for neutropenic fever. Allergies Allergy/AdvReac Type Severity Reaction Status Date / Time Influenza Virus Vaccines Allergy Mild SWELLING Verified 11/10/19 09:24 Home Medications Home Medications Medication Instructions Recorded Confirmed Type alprazolam [Xanax] 0.25 mg PO DAILY PRN 03/28/18 11/10/19 History ascorbic acid (vitamin C) [Vitamin 500 mg PO QAM 03/28/18 11/10/19 History C] calcium carbonate-vitamin D3 1 tab PO BID 03/28/18 11/10/19 History [Os-Arcadio 500 + D3] escitalopram oxalate [Lexapro] 10 mg PO QAM 03/28/18 11/10/19 History multivitamin 1 tab PO QAM 03/28/18 11/10/19 History rosuvastatin [Crestor] 20 mg PO QAM 03/28/18 11/10/19 History Tradjenta 5 mg PO QAM 07/07/19 11/10/19 History cranberry 400 mg PO QAM 07/07/19 11/10/19 History amitriptyline 25 mg PO HS 07/12/19 11/10/19 History amlodipine 5 mg PO DAILY 07/12/19 11/10/19 History esomeprazole magnesium [Nexium] 20 mg PO DAILY 07/12/19 11/10/19 History latanoprost 1 drp OPHTHALMIC (EYE) PM 07/12/19 11/10/19 History ondansetron HCl [Zofran] 4 mg PO Q6H PRN 07/12/19 11/10/19 History Ibrance 100 mg PO DAILY 10/01/19 11/10/19 History metoprolol tartrate 100 mg PO BID 10/01/19 11/10/19 History oxycodone-acetaminophen [Percocet] 1 tab PO Q8H PRN 10/01/19 11/10/19 History Patient History Medical History Acute hypoxemic respiratory failure Anxiety Arthritis Atrial tachycardia Cataracts, bilateral CKD (chronic kidney disease), stage III DM type 2 (diabetes mellitus, type 2) Dyslipidemia Goals of care, counseling/discussion HTN (hypertension) HX: breast cancer Metastatic breast cancer S/P admission to ICU (intensive care unit) Temporal arteritis Surgical History H/O right mastectomy Jun 2018 History of appendectomy History of cataract surgery S/P partial colectomy Jul 2019 S/P LIZBETH-BSO Family History Mother Diabetes Social History Preferred Language: Mongolian Communication Ability: Effective Barmaid Required: No Beliefs That Will Affect Care: None marital status: Current Living Situation: Spouse Current Living Situation Comment: lives with Other Information That Helps Us Care for You: No Feels Safe at Home: Yes Safety Concerns: Feels Safe At This Time Smoking Status: Never smoker Hx Alcohol Use: No Hx Substance Use: No Review of Systems Review of Systems: Other per h&p Results & Data ([facility]) Vital Signs (Past 12 Hours) Vital Signs Temp Pulse Pulse Pulse Resp BP Pulse Ox 11/11/19 08:00 90 11/11/19 07:53 37.1 C 94 H 18 121/58 L 97 11/11/19 04:20 36.8 C 83 14 107/61 95 11/11/19 00:00 78 11/10/19 23:59 37.1 C 82 12 109/58 L 93 Laboratory Results Microbiology 11/10/19 08:38 Urine,Clean Catch Urine Culture - Preliminary Gram negative bacilli PG Care Time/CCT Total # of Minutes Spent Total Time Spent with Patient: Total time spent is greater than 50% in coordination of care (as documented) at patient's floor/unit and/or counseling patient: Coding Level of Care Code 86535 Inpt Consult Level 2 Diagnoses Pancytopenia D61.818 Breast cancer C50.919 Breast location: unspecified site of breast Estrogen receptor status: unspecified Laterality: unspecified laterality Patient sex: female (1) Breast cancer Breast location: unspecified site of breast Estrogen receptor status: unspecified Laterality: unspecified laterality Patient sex: female Qualified Code(s): C50.919 - Malignant neoplasm of unspecified site of unspecified female breast
[2019-11-11] MEDS: DICYCLOMINE HCL 10 MG CAP PO PRN (12:51)
[2019-11-11] MEDS: NSS + 20MEQ KCL 20 MEQ/1,000 ML BAG IV SCH (12:54)
--- NOTE | 2019-11-11 14:01 | Pharmacy Report ---
Pharmacy Glycemic Short Note 2 - Date of Service November 11, 2019 - Glycemic Short BSG Results (Last 24 hours): 11/10/19 11/10/19 11/11/19 16:57 19:30 06:59 Glucose 60 L POC Glucose 139 H 118 H 11/11/19 11/11/19 11/11/19 07:50 07:51 08:41 Glucose POC Glucose 57 L* 64 L* 108 H 11/11/19 11:58 Glucose POC Glucose 118 H OUTPATIENT ANTIDIABETIC REGIMEN: * ASSESSMENT: * Patient received 27 units of insulin yesterday; 20 of basal, 7 units of bolus * Fasting hypoglycemia this morning, morning lantus held, will keep scale up to 10 units for PM (half of yesterday's dose) * Prandial BSGs within range, did loosen CHO ratio and correction factor this morning with fasting hypoglycemia PLAN FOR INPATIENT GLYCEMIC CONTROL: * Hold outpatient oral diabetes medications * Basal insulin * Lantus 0/5/10 units SQ BID * Bolus insulin * NovoLog per scale ACHS or Q6hrs while NPO * Goal Range: Low 110 mg/dL - High 140 mg/dL * Correction Factor: 30 mg/dL/unit * Nutritional / Prandial insulin per carb ratio of 1 unit per 10 grams CHO consumed PLAN FOR DISCHARGE: * Patient's a1c 6.6%, patient can resume home regimen on discharge if not experiencing any adverse effects
--- NOTE | 2019-11-11 14:14 | Hospitalist Progress Note ---
Date of Service delayed entry date of service noted below November 11, 2019 Assessment & Plan (1) Neutropenic fever: 83 year old female with history of Breast Cancer with Mets on Chemo- Ibrance, Pancytopenia, Paroxysmal Atrial Fibrillation, DM 2, Hypertension, presenting with fever and cough. NEUTROPENIC FEVER pancytopenia like from chemotherapy ANC improved from 1k to 4k blood cultures: negative urine culture: pending Hem/Onc consulted--> fever felt to be from cancer, recommend to monitor off antibiotics ff up urine culture POSSIBLE SEPSIS SECONDARY TO PNEUMONIA, [facility] admitted last September 2019 for Right sided pneumonia possible persistent vs. health care associated pneumonia sepsis protocol ordered including IV fluids, serial lactic aci lactic acid normalized CT chest ordered: pending Blood cultures: pending sputum culture: pending Nasal MRSA: Negative Covid: pending Hem/Onc consulted--> fever felt to be from cancer, recommend to monitor off antibiotics appropriate isolation precautions METASTATIC BREAST CANCER ON CHEMO hold Ibrance TEMPORAL ARTERITIS Actemra held by Parts Coordinator in light of PNA last month PAROXYSMAL ATRIAL FIBRILLATION usual Metoprolol 100mg BID reduced to 50mg in light of borderline BP noted to have 7 beat of vtach/SVT monitor in tele, monitor electrolytes consider echo once COVID is negative HYPERTENSION hold Amlodipine in light of borderline BP resume accordingly DM 2 hold Tradjenta ISS for now DVT prophylaxis history of right rectus sheath hematoma avoid lovenox/heparin SCDs only Disposition pending lives at home with family Admission and Anticipated Discharge Date Admission Date: November 10, 2019 Subjective ff up for febrile neutropenia seen resting in bed, comfortable not in distress denies fever/chills, no cough, sputum production reports diarrhea- 2-3 Loose BMs with some abdominal cramping no chest pain, dyspnea, palpitations, dizziness no other symptoms Review of Systems Review of Systems: All systems reviewed & are unremarkable except as noted in HPI & below Physical Exam Physical Exam: General- oriented x 3, not in distress, speaks in sentences with no effort or accessory muscle use Eyes- anicteric Neck- no JVD Lungs- mild rales on the right no wheezing clear on the left Heart- normal rate, regular rhythm; no murmurs Abdomen- normal bowel sounds, nondistended, soft, nontender Extremities- no pretibial edema, no calf tenderness Neuro- alert, oriented x 3; no gross focal neurologic deficits Skin- warm & dry Results & Data Results & Data ([facility]) Vital Signs (Past 12 Hours) Vital Signs Temp Pulse Pulse Resp BP Pulse Ox 11/11/19 12:04 37.4 C 81 18 119/70 97 11/11/19 08:00 90 11/11/19 07:53 37.1 C 94 H 18 121/58 L 97 11/11/19 04:20 36.8 C 83 14 107/61 95
[2019-11-11 17:39] LABS: SARS CoV2 RNA (COVID-19) NOT DETECTED (NOT DETECTED)
[2019-11-11] MEDS: LATANOPROST 0.005% OP SOLN 2.5 ML BTL OP SCH (20:48)
[2019-11-11] MEDS: METOPROLOL TARTRATE 50 MG TAB PO SCH (20:50)
[2019-11-11] MEDS: AMITRIPTYLINE HCL 25 MG TAB PO SCH (20:51)
[2019-11-12] MEDS: NSS + 20MEQ KCL 20 MEQ/1,000 ML BAG IV SCH ×3 (01:24→13:44)
[2019-11-12 06:16] LABS: Hematocrit (blood only) 20.3 % (37-47); Hemoglobin 6.8 g/dL (12.0-16.0); Mean Corpuscular Hemoglobin 33.2 pg (25-34); Mean Corpuscular Hgb Conc 33.5 g/dL (32-36); Mean Platelet Volume 9.2 fL (7.4-10.4); Platelet Count 108 K/uL (130-400); RDW Coefficient of Variation 18.8 % (11.5-14.5); RDW Standard Deviation 66.6 fL (36.4-46.3); Red Blood Count 2.05 M/uL (4.2-5.4); White Blood Count 7.85 K/uL (4.8-10.8)
[2019-11-12 06:28] LABS: Basophils # (auto) 0.04 K/uL (0-0.2); Basophils % (auto) 0.5 %; Eosinophils # (auto) 0.13 K/uL (0-0.5); Eosinophils % (auto) 1.7 %; Immature Granulocytes # (auto) 0.03 K/uL (0.00-0.02); Immature Granulocytes % (auto) 0.4 %; Lymphocytes # (auto) 0.81 K/uL (1.2-3.4); Lymphocytes % (auto) 10.3 %; Monocytes # (auto) 0.92 K/uL (0.11-0.59); Monocytes % (auto) 11.7 %; Neutrophils # (auto) 5.92 K/uL (1.4-6.5); Neutrophils % (auto) 75.4 %; Ovalocytes 1+; Tear Drop Cells Occasional
[2019-11-12 06:40] LABS: BUN Creatinine Ratio 11.5 (10-20); Calcium 8.4 mg/dl (8.5-10.1); Creatinine Clr Calc Pharmacy 29.9 ml/min; Est GFR (Non-African American) 40.5
[2019-11-12] MEDS: METOPROLOL TARTRATE 50 MG TAB PO SCH (08:37)
[2019-11-12] MEDS: PANTOprazole 40 MG TAB PO SCH (08:37)
[2019-11-12] MEDS: ESCITALOPRAM OXALATE 10 MG TAB PO SCH (08:37)
[2019-11-12] MEDS: DICYCLOMINE HCL 10 MG CAP PO PRN (08:37)
[2019-11-12] MEDS: ASCORBIC ACID 500 MG TAB PO SCH (08:38)
[2019-11-12] MEDS: ROSUVASTATIN CALCIUM 20 MG TAB PO SCH (08:38)
[2019-11-12] MEDS: MULTIVITAMIN TAB PO SCH (08:38)
[2019-11-12] MEDS: CALCIUM 600MG + VIT D 400 IU TAB PO SCH ×2 (08:38→19:49)
[2019-11-12] MEDS: INSULIN GLARGINE SOLOSTAR 100 UNITS/ML 3 ML PEN SC SCH ×2 (08:39→19:48)
[2019-11-12] MEDS: INSULIN ASPART 100 UNITS/ML 3 ML PEN SC SCH ×4 (08:40→19:50)
--- NOTE | 2019-11-12 09:03 | Hospitalist Progress Note ---
Date of Service November 12, 2019 Assessment & Plan (1) Neutropenic fever: 83 year old female with history of Breast Cancer with Mets on Chemo- Ibrance, Pancytopenia, Paroxysmal Atrial Fibrillation, DM 2, Hypertension, presenting with fever and cough. NEUTROPENIC FEVER pancytopenia like from chemotherapy ANC improved from 1k to 4k blood cultures: negative urine culture: Pansensitive Klebsiella Hem/Onc consulted--> fever felt to be from cancer, recommend to monitor off antibiotics Hb 6.8 today, repeat POSSIBLE SEPSIS SECONDARY TO PNEUMONIA, [facility] admitted last September 2019 for Right sided pneumonia possible persistent vs. health care associated pneumonia sepsis protocol ordered including IV fluids, serial lactic aci lactic acid normalized CT chest ordered: pending Blood cultures: pending sputum culture: pending Nasal MRSA: Negative Covid: neg Hem/Onc consulted--> fever felt to be from cancer, recommend to monitor off antibiotics appropriate isolation precautions METASTATIC BREAST CANCER ON CHEMO hold Ibrance TEMPORAL ARTERITIS Actemra held by Sweeper Driver in light of PNA last month PAROXYSMAL ATRIAL FIBRILLATION/Flutter usual Metoprolol 100mg BID reduced to 50mg in light of borderline BP noted to have 7 beat of vtach/SVT monitor in tele, monitor electrolytes echo HYPERTENSION hold Amlodipine in light of borderline BP resume accordingly DM 2 hold Tradjenta ISS for now DVT prophylaxis history of right rectus sheath hematoma avoid lovenox/heparin SCDs only Disposition pending lives at home with family ROS-No Headache, No Visual Changes, No Nausea, No Vomiting, No Fever, No Chills, No Neck Pain or Stiffness, No Chest Pain, No Palpitations, No SOB, No KIMBLE, No Cough, No Sputum, No Wheezing, No Abdominal Pain, No Diarrhea, No Hematemesis, No Hemoptysis, No Unexpected Weight Loss, No Flank pain, No Melena, No Hematochezia, No Frequency, No Urgency, No Burning, No Hematuria, No Rashes, No Diaphoresis. Appetite is Normal Physical Exam Gen-AAO x 3, NAD, Afebrile, pale Head-NCAT, EOMI, PERRLA, Anicteric Sclera, No Posterior Pharyngeal Erythema Neck-Supple, No JVD, No Thyromegaly, No Masses, No LAD, No Bruits Lungs-Clear to Auscultation Bilaterally, No Rales, No Rhonchi, No Wheezing, No Crepitus Chest-No S4, +S1, +S2, No S3, No Murmurs, No Rubs, No Gallops, No Ectopy Abdomen-Soft, Bowel Sounds Present, Non Tender, Non Distended, No Hepatomegaly, No Splenomegaly, No Palpable Masses, No Rebound, No Rigidity, No Guarding Musculoskeletal-Full Range of Motion Bilaterally, No CVAT Extremities-No Cyanosis, No Clubbing, No Edema Nuero-Cranial Nerves II-XII grossly intact, Motor WNL, DTRs WNL, Strength WNL, Non Focal Psych-Normal Mood Admission and Anticipated Discharge Date Admission Date: November 10, 2019 Results & Data Results & Data ([facility]) Vital Signs (Past 12 Hours) Vital Signs Temp Pulse Pulse Resp BP Pulse Ox 11/12/19 07:11 36.9 C 83 18 162/67 H 94 11/12/19 03:56 36.8 C 86 19 132/61 92 11/11/19 23:30 85 11/11/19 23:00 37.1 C 83 18 159/69 H 92
[2019-11-12] MEDS ORDERED: METOPROLOL TARTRATE 1 MG/ML VIAL IV STA (09:13)
[2019-11-12 09:27] LABS: Hematocrit (blood only) 24.3 % (37-47); Hemoglobin 8.3 g/dL (12.0-16.0)
[2019-11-12] MEDS ORDERED: METOPROLOL TARTRATE 50 MG TAB PO STA (13:16)
--- NOTE | 2019-11-12 13:29 | Cardiology Consultation ---
Date of Consultation November 12, 2019 Assessment & Plan (1) Paroxysmal atrial fibrillation: (2) Neutropenic fever: (3) Pancytopenia: Transient atrial fibrillation with rapid ventricular response recorded this a.m. Likely related to reduction of beta-moni dosing in the setting of neutrop enic fever and urinary tract infection. Recommend titration of metoprolol to 100 mg twice daily (outpatient dose). Will give patient 50 mg of metoprolol tartrate x1 now. Consider addition of amiodarone with recurrent episodes of atrial fibrillation. I will hold off on systemic anticoagulation at this time due to risks including frailty, chronic anemia, history of rectus sheath hematoma, and fall risk. Continue to monitor telemetry. No need for repeat echocardiogram at this time. Thank you for allowing me to participate in the care of your patient. History of Present Illness Reason for Consultation: Paroxysmal atrial fibrillation Requesting Physician: Dr. Palomino Attending Physician: Shelton Palomino DO History of Present Illness 83-year-old female admitted with neutropenic fever and possible urinary tract infection. Consultation requested regarding episode of atrial fibrillation beginning at approximately 845 this morning. Heart rates up to 135 bpm rec orded. Patient spontaneously converted to sinus rhythm at 1045. She carries a history of paroxysmal atrial fibrillation diagnosed in July 2019. During that hospitalization patient treated with amiodarone and oral metoprolol. Ultimately discharged on 100 mg of metoprolol twice daily. On admission, metoprolol reduced to 50 mg twice daily due to borderline hypotension. Patient reports a sensation of palpitations and fluttering this morning. The symptoms have resolved with conversion to sinus rhythm. No chest discomfort or unusual shortness of breath. Denies orthopnea, PND, lower extremity edema, or claudication. During previous hospitalization, systemic anticoagulation avoided due to frailty, chronic anemia, and history of rectus sheath hematoma. Currently patient asymptomatic and resting comfortably. She denies chest discomfort, or shortness of breath. Offers no concerns/complaints at this time. Allergies Allergy/AdvReac Type Severity Reaction Status Date / Time Influenza Virus Vaccines Allergy Mild SWELLING Verified 11/10/19 09:24 Home Medications Home Medications Medication Instructions Recorded Confirmed Type alprazolam [Xanax] 0.25 mg PO DAILY PRN 03/28/18 11/10/19 History ascorbic acid (vitamin C) [Vitamin 500 mg PO QAM 03/28/18 11/10/19 History C] calcium carbonate-vitamin D3 1 tab PO BID 03/28/18 11/10/19 History [Os-Arcadio 500 + D3] escitalopram oxalate [Lexapro] 10 mg PO QAM 03/28/18 11/10/19 History multivitamin 1 tab PO QAM 03/28/18 11/10/19 History rosuvastatin [Crestor] 20 mg PO QAM 03/28/18 11/10/19 History Tradjenta 5 mg PO QAM 07/07/19 11/10/19 History cranberry 400 mg PO QAM 07/07/19 11/10/19 History amitriptyline 25 mg PO HS 07/12/19 11/10/19 History amlodipine 5 mg PO DAILY 07/12/19 11/10/19 History esomeprazole magnesium [Nexium] 20 mg PO DAILY 07/12/19 11/10/19 History latanoprost 1 drp OPHTHALMIC (EYE) PM 07/12/19 11/10/19 History ondansetron HCl [Zofran] 4 mg PO Q6H PRN 07/12/19 11/10/19 History Ibrance 100 mg PO DAILY 10/01/19 11/10/19 History metoprolol tartrate 100 mg PO BID 10/01/19 11/10/19 History oxycodone-acetaminophen [Percocet] 1 tab PO Q8H PRN 10/01/19 11/10/19 History Patient History Medical History Acute hypoxemic respiratory failure Anxiety Arthritis Atrial tachycardia Cataracts, bilateral CKD (chronic kidney disease), stage III DM type 2 (diabetes mellitus, type 2) Dyslipidemia Goals of care, counseling/discussion HTN (hypertension) HX: breast cancer Metastatic breast cancer S/P admission to ICU (intensive care unit) Temporal arteritis Surgical History H/O right mastectomy Jun 2018 History of appendectomy History of cataract surgery S/P partial colectomy Jul 2019 S/P LIZBETH-BSO Family History Mother Diabetes Social History Preferred Language: Burundian Communication Ability: Effective 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: No Beliefs That Will Affect Care: None marital status: Current Living Situation: Spouse Current Living Situation Comment: lives with Other Information That Helps Us Care for You: No Feels Safe at Home: Yes Safety Concerns: Feels Safe At This Time Smoking Status: Never smoker Hx Alcohol Use: No Hx Substance Use: No Review of Systems Review of Systems: All systems reviewed & are unremarkable except as noted in HPI & below Physical Exam Constitutional: + ill appearing and + thin; no acute distress Respiratory: normal respiratory effort, lungs clear to auscultation Auscultation: no crackles, no rales, no rhonchi and no wheezes Cardiovascular: Rate/Rhythm: regular rate Heart Sounds: normal S1 and normal S2; no murmur and no cardiac rub Palpation: normal PMI Vessels: no JVD and no carotid bruit Extremities: no edema Gastrointestinal (Abdomen): Inspection/Auscultation: abdomen normal to inspection and normal bowel sounds; abdomen not distended Percussion/Palpation: abdomen soft; abdomen nontender, no guarding and abdomen not rigid Musculoskeletal: Extremities: no clubbing Skin: no rashes, warm and dry Neurologic: CN's II-XI intact bilaterally and moves all extremities; no focal motor deficits Psychiatric: A+Ox3, euthymic affect Results & Data ([facility]) Vital Signs (Past 12 Hours) Vital Signs Temp Pulse Pulse Resp BP Pulse Ox 11/12/19 11:09 36.8 C 89 18 154/74 H 97 11/12/19 10:35 89 11/12/19 10:02 113 H 11/12/19 07:11 36.9 C 83 18 162/67 H 94 11/12/19 03:56 36.8 C 86 19 132/61 92
[2019-11-12] MEDS: AMITRIPTYLINE HCL 25 MG TAB PO SCH (19:49)
[2019-11-12] MEDS: METOPROLOL TARTRATE 100 MG TAB PO SCH (19:49)
[2019-11-12] MEDS: LATANOPROST 0.005% OP SOLN 2.5 ML BTL OP SCH (19:49)
[2019-11-13] MEDS: NSS + 20MEQ KCL 20 MEQ/1,000 ML BAG IV SCH (02:30)
[2019-11-13 06:09] LABS: Hematocrit (blood only) 19.8 % (37-47); Hemoglobin 6.9 g/dL (12.0-16.0); Mean Corpuscular Hemoglobin 34.5 pg (25-34); Mean Corpuscular Hgb Conc 34.8 g/dL (32-36); Mean Platelet Volume 9.6 fL (7.4-10.4); Platelet Count 122 K/uL (130-400); RDW Standard Deviation 67.1 fL (36.4-46.3); White Blood Count 6.36 K/uL (4.8-10.8)
[2019-11-13 06:27] LABS: Basophils # (auto) 0.05 K/uL (0-0.2); Basophils % (auto) 0.8 %; Eosinophils # (auto) 0.15 K/uL (0-0.5); Eosinophils % (auto) 2.4 %; Immature Granulocytes # (auto) 0.03 K/uL (0.00-0.02); Immature Granulocytes % (auto) 0.5 %; Lymphocytes # (auto) 0.64 K/uL (1.2-3.4); Lymphocytes % (auto) 10.1 %; Monocytes # (auto) 0.78 K/uL (0.11-0.59); Monocytes % (auto) 12.3 %; Neutrophils # (auto) 4.71 K/uL (1.4-6.5); Neutrophils % (auto) 73.9 %; Ovalocytes 1+; Tear Drop Cells 1+
[2019-11-13 06:30] LABS: BUN Creatinine Ratio 11.5 (10-20); Calcium 8.4 mg/dl (8.5-10.1); Creatinine Clr Calc Pharmacy 33.2 ml/min; Est GFR (African American) 53.2; Est GFR (Non-African American) 45.9; Potassium 4.2 mmol/L (3.5-5.1)
[2019-11-13 06:33] LABS: Albumin Globulin Ratio 1.2 (0.9-2); Bilirubin,Total 0.5 mg/dl (0.2-1); Globulin 2.5 gm/dl (2.5-4.0); Total Protein 5.5 gm/dl (6.4-8.2)
--- NOTE | 2019-11-13 07:02 | Discharge Summary ---
Date of Service November 13, 2019 Admission HPI Per Admitting Provider 83 year old female with history of Breast Cancer with Mets on Chemo- Ibrance, Pancytopenia, Paroxysmal Atrial Fibrillation, DM 2, Hypertension, presenting with fever and cough. Patient was admitted to [facility] last September 2019 for pneumonia. Patient reports that she developed fever of 103 last night night associated with dry cough and nausea. Denies shortness of breath, sputum production, hemoptysis, chest pain. Denies abdominal pain, dysuria, hematuria, diarrhea. At the ER, patient's CXR right lower lobe infiltrate and WBC of 1.67. On exam, patient seen in her room at Telemetry unit. She is resting, comfortable, on room air, not in distress. States she feels better compared to admission. No other symptoms. Primary Care Provider: Mana Thompson, DO Admission Exam Per Admitting Provider General- oriented x 3, not in distress, speaks in sentences with no effort or accessory muscle use Head- atraumatic Eyes- PERRL, EOMI, anicteric ENT- oropharynx clear Neck- supple, no JVD, no adenopathy, no thyromegaly; carotids +2/2, no bruits appreciated Lungs- (+) crackles at the right lower lobe no wheezing Heart- normal rate, regular rhythm; no murmur, no gallop, no rub appreciated Abdomen- normal bowel sounds, nondistended, soft, nontender, no masses or hepatosplenomegaly Extremities- no pretibial edema, no calf tenderness; peripheral pulses intact Neuro- alert, oriented x 3; CN 2-12 grossly intact; motor 5/5 bilaterally;sensation 100% on all extremities; no other gross focal neurologic deficits Skin- warm & dry Principal Diagnosis Neutropenic fever Pancytopenia ANC improved from 1k to 4k SEPSIS PNEUMONIA, HEALTH CARE ASSOCIATED METASTATIC BREAST CANCER TEMPORAL ARTERITIS PAROXYSMAL ATRIAL FIBRILLATION/Flutter HYPERTENSION DM 2 Discharge Exam Physical Exam Gen-AAO x 3, NAD, Afebrile Head-NCAT, EOMI, PERRLA, Anicteric Sclera, No Posterior Pharyngeal Erythema Neck-Supple, No JVD, No Thyromegaly, No Masses, No LAD, No Bruits Lungs-Clear to Auscultation Bilaterally, No Rales, No Rhonchi, No Wheezing, No Crepitus Chest-No S4, +S1, +S2, No S3, No Murmurs, No Rubs, No Gallops, No Ectopy Abdomen-Soft, Bowel Sounds Present, Non Tender, Non Distended, No Hepatomegaly, No Splenomegaly, No Palpable Masses, No Rebound, No Rigidity, No Guarding Musculoskeletal-Full Range of Motion Bilaterally, No CVAT Extremities-No Cyanosis, No Clubbing, No Edema Nuero-Cranial Nerves II-XII grossly intact, Motor WNL, DTRs WNL, Strength WNL, Non Focal Psych-Normal Mood Discharge Data Allergies Allergy/AdvReac Type Severity Reaction Status Date / Time Influenza Virus Vaccines Allergy Mild SWELLING Verified 11/10/19 09:24 Consultations 11/10/19 09:29 ED Decision to Admit Stat 11/10/19 11:25 Consult Infectious Diseases Routine Consult Oncology Routine 11/12/19 09:34 Consult Cardiology Routine Current Diagnoses Malignant neoplasm of unspecified site of unspecified female breast (11/10/19) Other pancytopenia (11/10/19) Neutropenia, unspecified (11/10/19) Fever presenting with conditions classified elsewhere (11/10/19) Allergies Influenza Virus Vaccines Allergy (Mild, Verified 11/10/19 09:24) SWELLING Height/Weight/Isolation Height 5 ft 4 in Weight 59.1 kg Isolation Type Removed Precautions Chemistry 11/11/19 11/12/19 11/13/19 06:59 05:21 05:25 Sodium 142 142 142 Potassium 4.1 D 4.0 4.2 Chloride 111 H 114 H 114 H Carbon Dioxide 24 21 21 Anion Gap 7.0 8.0 7.0 BUN 23 H 14 13 Creatinine 1.42 H 1.23 H 1.11 Glucose 60 L 112 H 117 H Microbiology 11/10/19 08:47 Blood Aerobic Blood Culture - Preliminary No growth in Aerobic bottle after 48 hours. 11/10/19 08:47 Blood Anaerobic Blood Culture - Preliminary No growth in Anaerobic bottle after 48 hours. 11/10/19 08:55 Blood Aerobic Blood Culture - Preliminary No growth in Aerobic bottle after 48 hours. 11/10/19 08:55 Blood Anaerobic Blood Culture - Preliminary No growth in Anaerobic bottle after 48 hours. 11/10/19 08:38 Urine,Clean Catch Urine Culture - Final Klebsiella pneumoniae Hospital Course (1) Neutropenic fever: 83 year old female with history of Breast Cancer with Mets on Chemo- Ibrance, Pancytopenia, Paroxysmal Atrial Fibrillation, DM 2, Hypertension, presenting with fever and cough. NEUTROPENIC FEVER pancytopenia from chemotherapy ANC improved from 1k to 4k blood cultures: negative urine culture: Pansensitive Klebsiella Hem/Onc on case-->fever felt to be from cancer Hb 6.8 today POSSIBLE SEPSIS SECONDARY TO PNEUMONIA, HEALTH CARE ASSOCIATED admitted last September 2019 for Right sided pneumonia possible persistent vs. health care associated pneumonia sepsis protocol ordered including IV fluids, serial lactic aci lactic acid normalized Blood cultures: pending sputum culture: pending Nasal MRSA: Negative Covid: neg METASTATIC BREAST CANCER ON CHEMO TEMPORAL ARTERITIS Actemra held by [employer] in light of PNA last month PAROXYSMAL ATRIAL FIBRILLATION/Flutter usual Metoprolol 100mg BID noted to have 7 beat of vtach/SVT monitor in tele, monitor electrolytes echo Hypertension resume meds accordingly DM 2 Tradjenta DC Home today on Ceftin x 7 days Total Time Total Time Spent Total Time Spent (In Minutes): 45 mins Total Time Includes: Examination of the Patient, Discharge Planning, Medication Reconciliation and Communication With Other Providers Discharge Plan Discharge Items Patient Disposition: Home - Self-Care Reason For Visit: POSSIBLE SEPSIS Discharge Diagnosis: Neutropenic fever Pancytopenia ANC improved from 1k to 4k SEPSIS PNEUMONIA, HEALTH CARE ASSOCIATED METASTATIC BREAST CANCER TEMPORAL ARTERITIS PAROXYSMAL ATRIAL FIBRILLATION/Flutter HYPERTENSION DM 2 Condition on Discharge: Good Activity: Resume your previous activity Lifting: Gradually increase as tolerated Bathing: No limitations Exercise/Sports: None and Gradually increase as tolerated Driving/Machine Use: No limitations Weightbearing: Full weightbearing Non-emergency contact: Primary Care Provider Call non-emergency contact if: you have any medication questions Follow-up/Referrals: Mana Thompson, [Primary Care Provider] - Diet: Carb Consistent or DM2 Addtl Attending Provider Instructions: Hb keeps fluctuating Pending Studies at Discharge: No Stand-Alone Forms: My [employer], Smoking Cessation Medications and DC Order Prescriptions: New cefuroxime axetil 250 mg tablet 250 mg PO BID Qty: 14 RF: 0 Continued multivitamin Tablet 1 tab PO QAM RF: 0 alprazolam [Xanax] 0.25 mg Tablet 0.25 mg PO DAILY PRN (Reason: Anxiety) RF: 0 ascorbic acid (vitamin C) [Vitamin C] 500 mg Tablet 500 mg PO QAM RF: 0 escitalopram oxalate [Lexapro] 10 mg Tablet 10 mg PO QAM RF: 0 rosuvastatin [Crestor] 20 mg Tablet 20 mg PO QAM RF: 0 calcium carbonate-vitamin D3 [Os-Arcadio 500 + D3] 500 mg(1,250mg) -200 unit Tablet 1 tab PO BID RF: 0 cranberry 400 mg Capsule 400 mg PO QAM RF: 0 Tradjenta 5 mg Tablet 5 mg PO QAM RF: 0 ondansetron HCl [Zofran] 4 mg Tablet 4 mg PO Q6H PRN (Reason: Nausea) RF: 0 latanoprost 0.005 % Drops 1 drp OPHTHALMIC (EYE) PM RF: 0 amlodipine 5 mg Tablet 5 mg PO DAILY RF: 0 amitriptyline 25 mg Tablet 25 mg PO HS RF: 0 esomeprazole magnesium [Nexium] 20 mg Capsule,Delayed Release(Dr/Ec) 20 mg PO DAILY RF: 0 metoprolol tartrate 100 mg tablet 100 mg PO BID RF: 0 oxycodone-acetaminophen [Percocet] 5-325 mg Tablet 1 tab PO Q8H PRN (Reason: Pain) RF: 0 Ibrance 100 mg Capsule 100 mg PO DAILY RF: 0 Discharge Orders: Discharge Order (Routine); Ordered 11/13/19 Ordered By: Shelton Palomino Admission Data Admit Date/Time: 11/10/19 10:21 Attending Provider: Shelton Palomino Admit Provider: Ezequiel López Primary Care Provider: Mana Thompson Other Providers: Ezequiel López ; Davina Keane ; Mannie Brandt ; Ivan Moon ; Dany Mccray ; Grye Perez ; David Timmons ; Markos Bonilla ; Steven Erazo ; Bijal Gardner ; Eryn Banda ; Alberto Mendez
[2019-11-13 07:05] VITALS: BP 160/69; TEMP 98.2; O2SAT 94
[2019-11-13] MEDS: CALCIUM 600MG + VIT D 400 IU TAB PO SCH (07:29)
[2019-11-13] MEDS: PANTOprazole 40 MG TAB PO SCH (07:29)
[2019-11-13] MEDS: METOPROLOL TARTRATE 100 MG TAB PO SCH (07:29)
[2019-11-13] MEDS: ASCORBIC ACID 500 MG TAB PO SCH (07:29)
[2019-11-13] MEDS: MULTIVITAMIN TAB PO SCH (07:30)
[2019-11-13] MEDS: ROSUVASTATIN CALCIUM 20 MG TAB PO SCH (07:30)
[2019-11-13] MEDS ORDERED: VANCOMYCIN TROUGH ONE (07:30)
[2019-11-13] MEDS: ESCITALOPRAM OXALATE 10 MG TAB PO SCH (07:30)
[2019-11-13] MEDS: INSULIN ASPART 100 UNITS/ML 3 ML PEN SC SCH (08:54)
[2019-11-13 09:13] VITALS: PULSE 87
--- NOTE | 2019-11-13 09:53 | Progress Notes ---
DATE: 11/13/2019 MEDICAL ONCOLOGY PROGRESS NOTE DIAGNOSES: 1. Urinary tract infection. 2. Right lower lobe pneumonia. 3. Metastatic breast cancer. 4. Paroxysmal atrial fibrillation. 5. Type 2 diabetes mellitus. SUBJECTIVE: The patient was seen and examined at bedside. Clinically, she seems to be markedly improved presently on antibiotics to treat underlying urinary tract infection. I questioned throughout her hospitalization whether the patient was truly neutropenic. Her peripheral blood counts have been fluctuant regarding both WBCs and hemoglobin. Her hemoglobin today measured 6.9, but the patient feels perfectly fine. I am on board with having her discharged and seen in the office sometime next week, at which time we will repeat her labs at the [facility]. I have asked her to remain off of Ibrance until she is seen. I was happy to see she was COVID-19 negative. She offers absolutely no complaints and is planning on being discharged later on this morning. OBJECTIVE: GENERAL: A very pleasant 83-year-old female patient in no acute distress. VITAL SIGNS: Temperature 36.8, pulse 87, respirations 18, blood pressure 160/69. SKIN: Without rash or lesion. HEENT: Oral mucosa without erythema or ulceration. HEART: Regular rate and rhythm. No clicks, rubs, murmurs or gallops. LUNGS: Clear to auscultation bilaterally. ABDOMEN: Soft, nontender, nondistended. EXTREMITIES: No clubbing, cyanosis or edema. NEUROLOGICAL: She is awake, alert and oriented x3. LABORATORY DATA: WBC count 6360, hemoglobin 6.9, platelet count 122,000. Sodium 142, potassium 4.2, chloride 114, carbon dioxide 21, creatinine 1.11, BUN 13. IMPRESSION: 1. Urinary tract infection. 2. Right lower lobe pneumonia. 3. Metastatic breast cancer. 4. Paroxysmal atrial fibrillation. 5. Type 2 diabetes mellitus. PLAN: It was my pleasure to visit with Kristina again this morning. I believe she is clinically much better than my first encounter with her. I am not sure if she was actually truly neutropenic, but certainly had developed fever and the diagnosis of urinary tract infection and pneumonia certainly collaborate with the presence of a fever. That said, I have asked her to continue holding Ibrance until I see her in the office next week. I was very surprised to see this precipitous drop in hemoglobin. The patient denies any active gastrointestinal or genitourinary bleeding. She feels well enough to go home and we will tentatively schedule her for outpatient followup sometime next week, at which time I will repeat her peripheral blood counts before considering restarting her medication. She had no further questions. I have nothing further to add at this time and we will officially sign off. Thank you very much for allowing me to participate in her care.
== END 2019-11-13 11:20 | disposition home or self-care (01) | DRG 871 ==
LOC: ED 08:07 → SUATTDRO 10:21 → 2S 10:21 → 2N 11-11 22:24

== ENCOUNTER 2019-11-24 09:41 | Inpatient (IN) ==
--- NOTE | 2019-11-24 10:20 | Emergency Department Note ---
History of Present Illness General Chief complaint: Fall Stated complaint: FALL-HIT HEAD;NAUSEA,ABD PAIN,VOMITING,DIARRHEA Time Seen by Provider: 11/24/19 09:57 Source: patient, RN notes reviewed and old records reviewed Mode of arrival: EMS Limitations: no limitations History of Present Illness Provider complaint: Fall Associated symptoms: + cough, + fever/chills, + nausea/vomiting, + shortness of breath and + weakness; no chest pain and no headaches Treatments prior to arrival: none This is a 84 year old female who presents to the [facility] department after a fall this morning. The patient has a history of stage IV breast cancer for which she is receiving chemotherapy. Patient was recently admitted to the hospital for neutropenic fever. She recently finished her antibiotics. She began running another fever yesterday and was feeling generally weak. She then fell and hit her head this morning. Her family was unable to stand the patient up Home Medications Home Medications Medication Instructions Recorded Confirmed Type alprazolam [Xanax] 0.25 mg PO HS PRN 03/28/18 11/24/19 History ascorbic acid (vitamin C) [Vitamin 500 mg PO QAM 03/28/18 11/24/19 History C] calcium carbonate-vitamin D3 1 tab PO BID 03/28/18 11/24/19 History [Os-Arcadio 500 + D3] escitalopram oxalate [Lexapro] 10 mg PO QAM 03/28/18 11/24/19 History multivitamin 1 tab PO QAM 03/28/18 11/24/19 History rosuvastatin [Crestor] 20 mg PO QAM 03/28/18 11/24/19 History Tradjenta 5 mg PO QAM 07/07/19 11/24/19 History cranberry 400 mg PO QAM 07/07/19 11/24/19 History amitriptyline 25 mg PO HS 07/12/19 11/24/19 History amlodipine 5 mg PO QAM 07/12/19 11/24/19 History esomeprazole magnesium [Nexium] 20 mg PO QAM 07/12/19 11/24/19 History latanoprost 1 drp OPL HS 07/12/19 11/24/19 History ondansetron HCl [Zofran] 4 mg PO Q6H PRN 07/12/19 11/24/19 History Ibrance 100 mg PO DAILY 10/01/19 11/24/19 History metoprolol tartrate 100 mg PO BID 10/01/19 11/24/19 History oxycodone-acetaminophen [Percocet] 1 tab PO Q8H PRN 10/01/19 11/24/19 History diphenhydramine-acetaminophen 1 tab PO HS PRN 11/24/19 11/24/19 History [Tylenol PM Extra Strength] Allergies Allergy/AdvReac Type Severity Reaction Status Date / Time Influenza Virus Vaccines Allergy Mild SWELLING Verified 11/24/19 10:26 Past Med/Surg History Medical History (Updated 11/25/19 @ 08:16 by Celso Campos MD) Acute hypoxemic respiratory failure Anxiety Arthritis Atrial tachycardia Cataracts, bilateral CKD (chronic kidney disease), stage III DM type 2 (diabetes mellitus, type 2) Dyslipidemia Goals of care, counseling/discussion HTN (hypertension) HX: breast cancer Metastatic breast cancer Paroxysmal atrial fibrillation S/P admission to ICU (intensive care unit) Temporal arteritis Surgical History H/O right mastectomy Jun 2018 History of appendectomy History of cataract surgery S/P partial colectomy Jul 2019 S/P LIZBETH-BSO Family History Mother Diabetes Social History Preferred Language: Japanese Communication Ability: Effective Bell Tier Required: No Beliefs That Will Affect Care: None marital status: Current Living Situation: Spouse Current Living Situation Comment: lives with Feels Safe at Home: Yes Smoking Status: Never smoker Hx Alcohol Use: No Hx Substance Use: No Review of Systems A total of 10 systems reviewed and were otherwise negative Physical Exam Vital Signs Vital Signs - 24 hr 11/24/19 09:49 11/24/19 10:11 11/24/19 11:43 Temperature 37.4 C Temperature Source Axillary Pulse Rate 89 Pulse Rate [Apical] 84 Respiratory Rate 20 18 Blood Pressure 112/58 L Blood Pressure [Left Arm] 106/50 L Blood Pressure Mean 76 Blood Pressure Mean [Left Arm] 68 Pulse Oximetry 97 97 90 Oxygen Delivery Method Room Air Room Air Room Air Sepsis Recent Fever Within 48 Hours Yes Sepsis New/Unexplained Change in Mental Status No Sepsis Action Taken by Nursing No Action Required 11/24/19 13:00 Temperature Temperature Source Pulse Rate Pulse Rate [Apical] 85 Respiratory Rate 18 Blood Pressure Blood Pressure [Left Arm] 127/52 L Blood Pressure Mean Blood Pressure Mean [Left Arm] 77 Pulse Oximetry 92 Oxygen Delivery Method Room Air Sepsis Recent Fever Within 48 Hours Sepsis New/Unexplained Change in Mental Status Sepsis Action Taken by Nursing VITAL SIGNS - Vital signs and nursing notes were reviewed. GENERAL - 84-year-old female appearing stated age who is in no acute distress. Communicates well with provider and answers questions appropriately. SKIN - Without rashes. HEAD - NC/AT. EYES - PERRL with EOMI bilaterally. Sclera anicteric. Palpebral conjunctiva pink and moist with no injection noted. EARS - No deformities of external structures noted on gross examination bilaterally. No pain elicited with palpation of the tragus bilaterally. External auditory canals without discharge or otorrhea. Tympanic membranes pearly gutierrez without retraction or bulging. No fluid or purulent material visualized behind the TM. Handle of malleus, umbo, cone of light, pars tensa/flaccid all easily visualized. NOSE - Midline and without cyanosis. No epistaxis or purulent drainage noted. Septum midline without deviation or septal hematoma noted. MOUTH/OROPHARYNX - Without perioral cyanosis. Buccal mucosa pink and moist and without leukoplakia. Tongue midline with equal elevation of palate bilaterally. No tonsillar hypertrophy, erythema, or exudates noted. dentition noted. NECK - Neck with FROM. Supple to palpation. lymphadenopathy noted. No nuchal rigidity. LUNGS - Chest wall symmetric without accessory muscle use, intercostals retractions, or central cyanosis. Normal vesicular breath sounds CTA B/L. No wheezes, rales, or rhonchi appreciated. CARDIAC - RRR with S1/S2. No murmur, rubs, or gallops appreciated. ABDOMEN - Abdominal contour without pulsations or visible masses. BS normoactive all four quadrants. No tenderness, palpable masses, hepatosplenomegaly, or ascites noted. EXTREMITIES - No clubbing or peripheral cyanosis. No pretibial edema present. +3/5 radial, posterior tibial, and dorsalis pedis pulses palpated throughout. +5/5 strength noted in UE/LE bilaterally. NEUROLOGIC - Cranial nerves II through XII grossly intact. Sensory intact to light touch throughout. Patellar reflexes +2/4. PSYCH - A&Ox3 and cooperates fully with examiner. Pt is very pleasant and interacts well with examiner. Course Administered Medications Amitriptyline HCl (Elavil) 25 mg PO HS NENA Stop: 12/24/19 20:59 Last Admin: 11/24/19 19:51 Dose: 25 mg Documented by: [id number] Sodium Chloride (Nss 1000ml) 1,000 mls @ 100 mls/hr IV .Q10H NENA Stop: 11/25/19 11:49 Last Admin: 11/25/19 02:13 Dose: 100 mls/hr Documented by: [id number] Infusion: 11/25/19 02:01 Dose: 100 mls/hr Documented by: [id number] Admin: 11/24/19 16:01 Dose: 100 mls/hr Documented by: [id number] Metronidazole (Flagyl) 500 mg in 100 mls @ 100 mls/hr IV Q8H NENA; Protocol Stop: 12/04/19 17:59 Last Infusion: 11/25/19 04:03 Dose: 0 mls/hr Documented by: [id number] Admin: 11/25/19 02:14 Dose: 100 mls/hr Documented by: [id number] Infusion: 11/24/19 19:38 Dose: 0 mls/hr Documented by: [id number] Admin: 11/24/19 18:36 Dose: 100 mls/hr Documented by: [id number] Insulin Aspart (Novolog Flexpen) 0 units SC ACHS NENA Stop: 12/24/19 16:29 Last Admin: 11/24/19 21:11 Dose: 1 units Documented by: [id number] Cosigned by: [id number] Admin: 11/24/19 17:29 Dose: 1 units Documented by: [id number] Cosigned by: [id number] Insulin Glargine (Lantus Solostar Pen) 10 units SC BID [facility] Stop: 12/24/19 20:59 Last Admin: 11/24/19 21:12 Dose: 10 units Documented by: [id number] Cosigned by: [id number] Latanoprost (Xalatan Oph) 1 drops OPL HS NENA Stop: 12/24/19 20:59 Last Admin: 11/24/19 19:50 Dose: 1 drops Documented by: [id number] Metoprolol Tartrate (Lopressor) 100 mg PO BID NENA Stop: 12/24/19 20:59 Last Admin: 11/24/19 19:51 Dose: 100 mg Documented by: [id number] Multivitamins/Minerals (Caltrate Plus) 1 tab PO BID NENA Stop: 12/24/19 20:59 Last Admin: 11/24/19 19:50 Dose: 1 tab Documented by: [id number] Discontinued Medications Sodium Chloride (Nss 1000ml) 1,000 mls @ 999 mls/hr IV .Q1H1M ONE Stop: 11/24/19 11:22 Last Infusion: 11/24/19 12:16 Dose: 0 mls/hr Documented by: [id number] Admin: 11/24/19 11:14 Dose: 999 mls/hr Documented by: [id number] Cefepime HCl (Maxipime) 2,000 mg in 20 mls @ 5 mls/min IV NOW STA; Protocol Stop: 11/24/19 12:09 Last Admin: 11/24/19 12:47 Dose: 5 mls/min Documented by: [id number] Vancomycin HCl 1,500 mg/ (Sodium Chloride) 530 mls @ 200 mls/hr IV NOW ONE Stop: 11/24/19 15:38 Last Infusion: 11/24/19 16:33 Dose: 0 mls/hr Documented by: [id number] Admin: 11/24/19 13:12 Dose: 200 mls/hr Documented by: [id number] Magnesium Sulfate/Dextrose (Magnesium Sulfate / D5w) 1 gm in 100 mls @ 100 mls/hr IV Q1H NENA Stop: 11/24/19 18:14 Last Infusion: 11/24/19 18:37 Dose: 0 mls/hr Documented by: [id number] Admin: 11/24/19 17:30 Dose: 100 mls/hr Documented by: [id number] Infusion: 11/24/19 17:30 Dose: 100 mls/hr Documented by: [id number] Admin: 11/24/19 16:34 Dose: 100 mls/hr Documented by: [id number] Medical Decision Making Differential Diagnosis Infection, dehydration, metabolic abnormality, hypo/hyperglycemia, electrolyte disturbance, anemia, hypoxia, cardiac sources, intracerebral event, toxicologic, neurologic, as well as other pathologies. Medical Records Attestation: I reviewed the patient's medical records. Home Medications Current Medication List: was personally reviewed by me Laboratory Data Attestation: I reviewed the patient's lab results. Result diagrams: 11/25/19 06:31 11/25/19 06:31 Lab Results 11/24/19 11/24/19 11/24/19 Range/Units 10:44 10:44 10:44 WBC 23.64 H (4.8-10.8) K/uL RBC 2.50 L (4.2-5.4) M/uL Hgb 8.4 L (12.0-16.0) g/dL Hct 24.9 L (37-47) % MCV 99.6 (80-100) fL MCH 33.6 (25-34) pg MCHC 33.7 (32-36) g/dL RDW Std Deviation 60.6 H (36.4-46.3) fL RDW Coeff of Jennifer 16.7 H (11.5-14.5) % Plt Count 289 (130-400) K/uL MPV 9.8 (7.4-10.4) fL Immature Gran % (Auto) 0.3 % Neut % (Auto) 89.3 % Lymph % (Auto) 4.9 % Rankin % (Auto) 5.4 % Eos % (Auto) 0.0 % Baso % (Auto) 0.1 % Immature Gran # (Auto) 0.07 H (0.00-0.02) K/uL Neut # (Auto) 21.11 H (1.4-6.5) K/uL Lymph # (Auto) 1.17 L (1.2-3.4) K/uL Rankin # (Auto) 1.27 H (0.11-0.59) K/uL Eos # (Auto) 0.00 (0-0.5) K/uL Baso # (Auto) 0.02 (0-0.2) K/uL ESR (0-21) mm/hr PT 11.0 (9.0-12.0) Seconds INR 1.0 (0.9-1.1) APTT 21.9 (21.0-31.0) Seconds PTT Ratio 0.8 Sodium 133 L (136-145) mmol/L Potassium 3.9 (3.5-5.1) mmol/L Chloride 98 (98-107) mmol/L Carbon Dioxide 27 (21-32) mmol/L Anion Gap 8.0 (3-11) BUN 27 H (7-18) mg/dl Creatinine 1.34 H (0.6-1.2) mg/dl Est Cr Clr Drug Dosing Not Reportable Est GFR ( Amer) 42.1 Est GFR (Non-Af Amer) 36.3 BUN/Creatinine Ratio 20.5 H (10-20) Glucose 195 H (70-99) mg/dl Lactate (0.4-2.0) mmol/L Calcium 8.9 (8.5-10.1) mg/dl Magnesium 1.7 L (1.8-2.4) mg/dl Ferritin (8-388) ng/ml Total Bilirubin 0.7 (0.2-1) mg/dl AST 26 (15-37) U/L ALT 17 (12-78) U/L Alkaline Phosphatase 56 (45-117) U/L Total Creatine Kinase 46 (26-192) U/L CK-MB (CK-2) 1.4 (0.5-3.6) ng/ml CK/CKMB % Calc 3.0 (0-3.0) Troponin I < 0.015 (0-0.045) ng/ml C-Reactive Protein (0-0.29) mg/dl Total Protein 6.5 (6.4-8.2) gm/dl Albumin 3.3 L (3.4-5.0) gm/dl Globulin 3.2 (2.5-4.0) gm/dl Albumin/Globulin Ratio 1.0 (0.9-2) Procalcitonin (0-0.5) ng/ml COVID-19 PCR (Negative) Influenza Type A (PCR) (Neg) Influenza Type B (PCR) (Neg) SARS-CoV-2 RNA (RT-PCR) 11/24/19 11/24/19 11/24/19 Range/Units 10:44 10:44 10:44 WBC (4.8-10.8) K/uL RBC (4.2-5.4) M/uL Hgb (12.0-16.0) g/dL Hct (37-47) % MCV (80-100) fL MCH (25-34) pg MCHC (32-36) g/dL RDW Std Deviation (36.4-46.3) fL RDW Coeff of Jennifer (11.5-14.5) % Plt Count (130-400) K/uL MPV (7.4-10.4) fL Immature Gran % (Auto) % Neut % (Auto) % Lymph % (Auto) % Rankin % (Auto) % Eos % (Auto) % Baso % (Auto) % Immature Gran # (Auto) (0.00-0.02) K/uL Neut # (Auto) (1.4-6.5) K/uL Lymph # (Auto) (1.2-3.4) K/uL Rankin # (Auto) (0.11-0.59) K/uL Eos # (Auto) (0-0.5) K/uL Baso # (Auto) (0-0.2) K/uL ESR 35 H (0-21) mm/hr PT (9.0-12.0) Seconds INR (0.9-1.1) APTT (21.0-31.0) Seconds PTT Ratio Sodium (136-145) mmol/L Potassium (3.5-5.1) mmol/L Chloride (98-107) mmol/L Carbon Dioxide (21-32) mmol/L Anion Gap (3-11) BUN (7-18) mg/dl Creatinine (0.6-1.2) mg/dl Est Cr Clr Drug Dosing Est GFR ( Amer) Est GFR (Non-Af Amer) BUN/Creatinine Ratio (10-20) Glucose (70-99) mg/dl Lactate 1.4 (0.4-2.0) mmol/L Calcium (8.5-10.1) mg/dl Magnesium (1.8-2.4) mg/dl Ferritin (8-388) ng/ml Total Bilirubin (0.2-1) mg/dl AST (15-37) U/L ALT (12-78) U/L Alkaline Phosphatase (45-117) U/L Total Creatine Kinase (26-192) U/L CK-MB (CK-2) (0.5-3.6) ng/ml CK/CKMB % Calc (0-3.0) Troponin I (0-0.045) ng/ml C-Reactive Protein (0-0.29) mg/dl Total Protein (6.4-8.2) gm/dl Albumin (3.4-5.0) gm/dl Globulin (2.5-4.0) gm/dl Albumin/Globulin Ratio (0.9-2) Procalcitonin 3.59 H (0-0.5) ng/ml COVID-19 PCR (Negative) Influenza Type A (PCR) (Neg) Influenza Type B (PCR) (Neg) SARS-CoV-2 RNA (RT-PCR) 11/24/19 11/24/19 11/24/19 Range/Units 10:44 12:40 12:40 WBC (4.8-10.8) K/uL RBC (4.2-5.4) M/uL Hgb (12.0-16.0) g/dL Hct (37-47) % MCV (80-100) fL MCH (25-34) pg MCHC (32-36) g/dL RDW Std Deviation (36.4-46.3) fL RDW Coeff of Jennifer (11.5-14.5) % Plt Count (130-400) K/uL MPV (7.4-10.4) fL Immature Gran % (Auto) % Neut % (Auto) % Lymph % (Auto) % Rankin % (Auto) % Eos % (Auto) % Baso % (Auto) % Immature Gran # (Auto) (0.00-0.02) K/uL Neut # (Auto) (1.4-6.5) K/uL Lymph # (Auto) (1.2-3.4) K/uL Rankin # (Auto) (0.11-0.59) K/uL Eos # (Auto) (0-0.5) K/uL Baso # (Auto) (0-0.2) K/uL ESR (0-21) mm/hr PT (9.0-12.0) Seconds INR (0.9-1.1) APTT (21.0-31.0) Seconds PTT Ratio Sodium (136-145) mmol/L Potassium (3.5-5.1) mmol/L Chloride (98-107) mmol/L Carbon Dioxide (21-32) mmol/L Anion Gap (3-11) BUN (7-18) mg/dl Creatinine (0.6-1.2) mg/dl Est Cr Clr Drug Dosing Est GFR ( Amer) Est GFR (Non-Af Amer) BUN/Creatinine Ratio (10-20) Glucose (70-99) mg/dl Lactate (0.4-2.0) mmol/L Calcium (8.5-10.1) mg/dl Magnesium (1.8-2.4) mg/dl Ferritin 138.9 (8-388) ng/ml Total Bilirubin (0.2-1) mg/dl AST (15-37) U/L ALT (12-78) U/L Alkaline Phosphatase (45-117) U/L Total Creatine Kinase (26-192) U/L CK-MB (CK-2) (0.5-3.6) ng/ml CK/CKMB % Calc (0-3.0) Troponin I (0-0.045) ng/ml C-Reactive Protein 5.18 H (0-0.29) mg/dl Total Protein (6.4-8.2) gm/dl Albumin (3.4-5.0) gm/dl Globulin (2.5-4.0) gm/dl Albumin/Globulin Ratio (0.9-2) Procalcitonin (0-0.5) ng/ml COVID-19 PCR (Negative) Influenza Type A (PCR) Neg for Influ A (Neg) Influenza Type B (PCR) Neg for Influ B (Neg) SARS-CoV-2 RNA (RT-PCR) Cancelled 11/24/19 Range/Units 12:40 WBC (4.8-10.8) K/uL RBC (4.2-5.4) M/uL Hgb (12.0-16.0) g/dL Hct (37-47) % MCV (80-100) fL MCH (25-34) pg MCHC (32-36) g/dL RDW Std Deviation (36.4-46.3) fL RDW Coeff of Jennifer (11.5-14.5) % Plt Count (130-400) K/uL MPV (7.4-10.4) fL Immature Gran % (Auto) % Neut % (Auto) % Lymph % (Auto) % Rankin % (Auto) % Eos % (Auto) % Baso % (Auto) % Immature Gran # (Auto) (0.00-0.02) K/uL Neut # (Auto) (1.4-6.5) K/uL Lymph # (Auto) (1.2-3.4) K/uL Rankin # (Auto) (0.11-0.59) K/uL Eos # (Auto) (0-0.5) K/uL Baso # (Auto) (0-0.2) K/uL ESR (0-21) mm/hr PT (9.0-12.0) Seconds INR (0.9-1.1) APTT (21.0-31.0) Seconds PTT Ratio Sodium (136-145) mmol/L Potassium (3.5-5.1) mmol/L Chloride (98-107) mmol/L Carbon Dioxide (21-32) mmol/L Anion Gap (3-11) BUN (7-18) mg/dl Creatinine (0.6-1.2) mg/dl Est Cr Clr Drug Dosing Est GFR ( Amer) Est GFR (Non-Af Amer) BUN/Creatinine Ratio (10-20) Glucose (70-99) mg/dl Lactate (0.4-2.0) mmol/L Calcium (8.5-10.1) mg/dl Magnesium (1.8-2.4) mg/dl Ferritin (8-388) ng/ml Total Bilirubin (0.2-1) mg/dl AST (15-37) U/L ALT (12-78) U/L Alkaline Phosphatase (45-117) U/L Total Creatine Kinase (26-192) U/L CK-MB (CK-2) (0.5-3.6) ng/ml CK/CKMB % Calc (0-3.0) Troponin I (0-0.045) ng/ml C-Reactive Protein (0-0.29) mg/dl Total Protein (6.4-8.2) gm/dl Albumin (3.4-5.0) gm/dl Globulin (2.5-4.0) gm/dl Albumin/Globulin Ratio (0.9-2) Procalcitonin (0-0.5) ng/ml COVID-19 PCR NEGATIVE (Negative) Influenza Type A (PCR) (Neg) Influenza Type B (PCR) (Neg) SARS-CoV-2 RNA (RT-PCR) Imaging Data Radiologist's Impression: [facility], [place] [phone] XRay Report Patient: Rojas OQUENDO Date: 11/24/19 MR#: [id number]: Nora KATZ Acct ID:[id number]: Date: [address] [place] [address] Zip: [place] [address] Age: 84Location: ED Sex: F Room/Bed: Att Phy:Diagnosis: FALL-HIT HEAD;NAUSEA,ABD PAIN,VOMITING,DIARRHEA Nati Phy: Mana Thompson, DOService Date: 11/24/19 Fam Phy:Interpreting Phy: Kedar Larson MD Admit Phy: Ordering Phy: Celso Campos MD cc: ~ XR chest 1V portable CLINICAL HISTORY: 84 years-old Female presenting with SEPSIS. TECHNIQUE: Portable upright AP view of the chest was obtained. COMPARISON: 11/10/2019. FINDINGS: Atherosclerosis of the aortic arch. Cardiac silhouette normal in size. Interval decrease in patchy opacities peripherally in the right mid to lower lung. Persistent coarse central patchy opacities, stable to increased from prior. No large effusion or pneumothorax. Osseous structures normal. Upper abdomen normal. IMPRESSION: 1. Decreased peripheral though slightly increased central predominant infiltrates in the right mid to lower lung. Ongoing pneumonia to be considered. Follow-up to resolution recommended. ACT 112: Negative or not required by law. Electronically signed by: Kedar Larson M.D. 11/24/2019 10:24 AM Dictated: 11/24/19 1021 Transcribed: 11/24/19 1021 [facility], [place] [phone] CT Scan Report Patient: Rojas OQUENDO Date: 11/24/19 MR#: [id number]: Nora KATZ Acct ID:[id number]: Date: 1935[facility] Zip: [place] [address] Age: 84Location: ED Sex: F Room/Bed: Att Phy:Diagnosis: FALL-HIT HEAD;NAUSEA,ABD PAIN,VOMITING,DIARRHEA Nati Phy: Mana Thompson, DOService Date: 11/24/19 [facility] Phy:Interpreting Phy: Kedar Larson MD Admit Phy: Ordering Phy: Celso Campos MD cc: ~ CT abd pelvis wo con CLINICAL HISTORY: 84 years-old Female presenting with Pt c/o abd distension, fever. TECHNIQUE: Multidetector CT of the abdomen and pelvis was performed without the use of intravenous contrast. IV contrast: None. One or more dose lowering techniques were used consistent with the principles of ALARA (as low as reasonably achievable), including automatic exposure control, mA or kV adjustment to individual patient size, and/or use of iterative reconstruction. COMPARISON: PET/CT from 08/04/[address] from 07/19/2019. CT DOSE (mGy.cm): The estimated cumulative dose is 836.11. FINDINGS: Needle Polisher topogram: Unremarkable. Lung bases: Normal heart size. Trace right pleural effusion. Pleural nodularity may be present. Patchy consolidation in the right middle lobe. Lesser degree of nodular peribronchovascular infiltrates in the right lower lobe. Left lung base grossly clear. Liver: Normal morphology. Normal density. Biliary: No gross biliary ductal dilatation allowing for noncontrast technique. Layering high density within the gallbladder likely represents sludge or inspissated bile. Pancreas: Moderate parenchymal atrophy. Spleen: Normal noncontrast appearance. Splenule noted. Adrenal glands: Normal noncontrast appearance. Kidneys and ureters: Persistent moderate to severe distention of the right renal collecting system. No left hydronephrosis. Cortical thinning is evident on the right. Multiple renal cysts noted on the left. Ureters are nondistended bilaterally and somewhat poorly visualized. Bladder: Incompletely evaluated secondary to underdistention. The bladder is not well visualized. Pelvic organs: Uterus may be absent or atrophic. No adnexal masses. Bowel: Fluid suggested in the rectum. Diverticulosis of the sigmoid colon without wall thickening or pericolonic inflammatory change. Suture margin noted at the splenic flexure and hepatic flexure. Partial colectomy is presumed. Poor delineation of the bowel in the absence of intravenous and oral contrast. Abnormal appearance of a loop of small bowel in the superior pelvis, which appears to demonstrate wall thickening. No convincing evidence of an obstruction at this site. Mild diffuse gastric wall thickening may be present. The appendix is likely absent Peritoneal cavity: . Small volume ascites scattered in the upper abdomen and pelvis. This is similar to prior. Infiltration of the omentum and mesentery similar to prior PET/CT. No free intraperitoneal gas. Lymph nodes: No gross lymphadenopathy allowing for noncontrast technique. Vasculature: Atherosclerosis of the normal caliber abdominal aorta. Abdominal wall: Postsurgical changes of the ventral abdominal wall. Musculoskeletal: Degenerative changes of the spine. No destructive osseous lesion. IMPRESSION: 1. Persistent small volume ascites with extensive infiltrative changes in the mesentery and omentum. This is nonspecific. 2. Poor delineation of the bowel in the absence of intravenous and oral contrast. Postsurgical changes of the colon. 3. Abnormal appearance of small bowel loops in the pelvis suggest enteritis. Ischemic bowel is not excluded. No gross evidence of perforation. 4. Extensive consolidation in the right middle lobe and to a lesser extent the right lower lobe consistent with pneumonia. Follow-up advised. ACT 112: Negative or not required by law. Electronically signed by: Kedar Larson M.D. 11/24/2019 11:42 AM Dictated: 11/24/19 1123 Transcribed: 11/24/19 1123 [place], [place] [phone] CT Scan Report Patient: Rojas OQUENDO Date: 11/24/19 MR#: [id number]: Nora KATZ Acct ID:[id number]: Date: 1935[facility] Zip: [place] [address] Age: 84Location: ED Sex: F Room/Bed: Att Phy:Diagnosis: FALL-HIT HEAD;NAUSEA,ABD PAIN,VOMITING,DIARRHEA Nati Phy: Mana Thompsno, DOService Date: 11/24/19 Fam Phy:Interpreting Phy: Kedar Larson MD Admit Phy: Ordering Phy: Celso Campos MD cc: ~ CT head/brain wo con CLINICAL HISTORY: 84 years-old Female presenting with Pt c/o fall, hit head. TECHNIQUE: Multidetector CT imaging of the head was performed without the use of intravenous contrast. IV contrast: None. One or more dose lowering techniques were used consistent with the principles of ALARA (as low as reasonably achievable), including automatic exposure control, mA or kV adjustment to individual patient size, and/or use of iterative reconstruction. COMPARISON: 03/28/2018. CT DOSE (mGy.cm): The estimated cumulative dose is 836.11 mGy.cm. FINDINGS: Needle Polisher topogram: Right perihilar opacity. Ventricles and sulci normal in size. No hemorrhage. 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 No acute territorial infarct. No mass effect or midline shift. No extra-axial fluid collection. Paranasal sinuses and mastoid air cells clear. Calvarium intact. IMPRESSION: 1. No acute intracranial abnormality. 2. Suggestion of old cerebellar hemispheric lacunar infarcts. ACT 112: Negative or not required by law. Electronically signed by: Kedar Larson M.D. 11/24/2019 11:19 AM Dictated: 11/24/191115 Transcribed: 11/24/191115 ECG Data Attestation: I personally reviewed and interpreted this ECG as follows: Indication: + weakness Rate (beats per minute): 84 Rhythm: + normal sinus ECG Intervals/blocks: + Normal QT-c (477) ECG [place]: + Normal ECG ST segments: no ST depression and no ST elevation Comparison ECG Date: from (11/10/2019) Change: the following changes noted (Vent rate has slowed from 128) Blood Pressure Blood Pressure Findings: Elevated blood pressure Blood Pressure Disposition: elevated BP felt to be situational MDM Narrative Patient was seen and evaluated as above in room B6. Review was performed of n ursing notes and vital signs. I did review pertinent previous visits and patient history. After obtaining a thorough history and physical examination the above work up was performed. This is an 84-year-old female who presents emergency department with increasing pneumonia on her chest x-ray. The patient also has an elevation in her white blood cell count. The patient is on chemotherapy for breast cancer. I did discuss the case with the hospitalist service who did agree to admit the patient . Patient and family are in agreement with the treatment plan. An order was placed for continuous cardiac monitoring. The monitor shows a rate of 80 with Normal Sinus rhythm. This is an 84-year-old female who presents emergency department complaining of generalized weakness. Patient had a fall at home The patient was evaluated during the global COVID-19 pandemic, and that diagnosis was suspected/considered upon their initial presentation. Their evaluation, treatment and testing was consistent with current guidelines for patients who present with complaints or symptoms that may be related to COVID- 19. Impression & Plan Pneumonia, Leukocytosis, Fall, Fever Discharge Plan Visit Data *Final* Discharge Date/Time: 11/24/19 15:30 Chief Complaint: Fall Stated Complaint: FALL-HIT HEAD;NAUSEA,ABD PAIN,VOMITING,DIARRHEA ED Provider: Celso Campos ED Midlevel Provider: Maribeth Silver Discharge Problem: Pneumonia, Leukocytosis, Fall, Fever Patient Disposition: Admitted As Inpatient Discharge Instructions Interventions: ED Discharge Assessment Last Done: 11/24/19 15:30 Discharge Problem: Pneumonia Qualifiers: Pneumonia type: due to unspecified organism Laterality: unspecified laterality Lung location: unspecified part of lung Qualified Code(s): J18.9 - Pneumonia, unspecified organism Leukocytosis Qualifiers: Leukocytosis type: unspecified Qualified Code(s): D72.829 - Elevated white blood cell count, unspecified Fall Qualifiers: Encounter type: initial encounter Qualified Code(s): W19.XXXA - Unspecified fall, initial encounter Fever Qualifiers: Fever type: unspecified Qualified Code(s): R50.9 - Fever, unspecified
[2019-11-24] MEDS ORDERED: SODIUM CHLORIDE 0.9% 1000ML 1,000 ML IV ONE (10:22)
--- NOTE | 2019-11-24 10:25 | XRay Report ---
XR chest 1V portable CLINICAL HISTORY: 84 years-old Female presenting with SEPSIS. TECHNIQUE: Portable upright AP view of the chest was obtained. COMPARISON: 11/10/2019. FINDINGS: Atherosclerosis of the aortic arch. Cardiac silhouette normal in size. Interval decrease in patchy op acities peripherally in the right mid to lower lung. Persistent coarse central patchy opacities, stab le to increased from prior. No large effusion or pneumothorax. Osseous structures normal. Upper abdom en normal. IMPRESSION: 1. Decreased peripheral though slightly increased central predominant infiltrates in the right mid t o lower lung. Ongoing pneumonia to be considered. Follow-up to resolution recommended. ACT 112: Negative or not required by law. Electronically signed by: Kedar Larson M.D. 11/24/2019 10:24 AM
--- NOTE | 2019-11-24 10:30 | Emergency Department Note ---
ED Visit Note Patient seen and examined in conjunction with Dr. Campos. Please see his note for medical decision making. . Resident Activity Tracking Resident Involvement: Resident Care Provided Care Provided: Adult ED
[2019-11-24 11:08] LABS: Hematocrit (blood only) 24.9 % (37-47); Hemoglobin 8.4 g/dL (12.0-16.0); Mean Corpuscular Hemoglobin 33.6 pg (25-34); Mean Corpuscular Hgb Conc 33.7 g/dL (32-36); Mean Corpuscular Volume 99.6 fL (80-100); Mean Platelet Volume 9.8 fL (7.4-10.4); Platelet Count 289 K/uL (130-400); RDW Coefficient of Variation 16.7 % (11.5-14.5); RDW Standard Deviation 60.6 fL (36.4-46.3); White Blood Count 23.64 K/uL (4.8-10.8)
[2019-11-24 11:19] LABS: Partial Thromboplastin Ratio 0.8; Partial Thromboplastin Time 21.9 Seconds (21.0-31.0)
--- NOTE | 2019-11-24 11:21 | CT Scan Report ---
CT head/brain wo con CLINICAL HISTORY: 84 years-old Female presenting with Pt c/o fall, hit head. TECHNIQUE: Multidetector CT imaging of the head was performed without the use of intravenous contrast . IV contrast: None. One or more dose lowering techniques were used consistent with the principles of ALARA (as low as reasonably achievable), including automatic exposure control, mA or kV adjustment t o individual patient size, and/or use of iterative reconstruction. COMPARISON: 03/28/2018. CT DOSE (mGy.cm): The estimated cumulative dose is 836.11 mGy.cm. FINDINGS: Sizer Machine topogram: Right perihilar opacity. Ventricles and sulci normal in size. No hemorrhage. 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 No acute territorial infarct. No mass effect or midline shift. No extra-axial fluid collection. Paranasal sinuses and mastoid air cells clear. Calvarium intact. IMPRESSION: 1. No acute intracranial abnormality. 2. Suggestion of old cerebellar hemispheric lacunar infarcts. ACT 112: Negative or not required by law. Electronically signed by: Kedar Larson M.D. 11/24/2019 11:19 AM
[2019-11-24 11:41] LABS: Alanine Aminotransferase 17 U/L (12-78); Albumin Level 3.3 gm/dl (3.4-5.0); Aspartate Aminotransferase 26 U/L (15-37); BUN Creatinine Ratio 20.5 (10-20); Blood Urea Nitrogen 27 mg/dl (7-18); Calcium 8.9 mg/dl (8.5-10.1); Carbon Dioxide 27 mmol/L (21-32); Chloride 98 mmol/L (98-107); Est GFR (African American) 42.1; Est GFR (Non-African American) 36.3; Glucose 195 mg/dl (70-99); Magnesium 1.7 mg/dl (1.8-2.4); Potassium 3.9 mmol/L (3.5-5.1); Sodium 133 mmol/L (136-145)
--- NOTE | 2019-11-24 11:43 | CT Scan Report ---
CT abd pelvis wo con CLINICAL HISTORY: 84 years-old Female presenting with Pt c/o abd distension, fever. TECHNIQUE: Multidetector CT of the abdomen and pelvis was performed without the use of intravenous co ntrast. IV contrast: None. One or more dose lowering techniques were used consistent with the princip les of ALA (as low as reasonably achievable), including automatic exposure control, mA or kV adjust ment to individual patient size, and/or use of iterative reconstruction. COMPARISON: PET/CT from 08/04/[address] from 07/19/2019. CT DOSE (mGy.cm): The estimated cumulative dose is 836.11. FINDINGS: C[employer] Collection Clerk topogram: Unremarkable. Lung bases: Normal heart size. Trace right pleural effusion. Pleural nodularity may be present. Patch y consolidation in the right middle lobe. Lesser degree of nodular peribronchovascular infiltrates in the right lower lobe. Left lung base grossly clear. Liver: Normal morphology. Normal density. Biliary: No gross biliary ductal dilatation allowing for noncontrast technique. Layering high density within the gallbladder likely represents sludge or inspissated bile. Pancreas: Moderate parenchymal atrophy. Spleen: Normal noncontrast appearance. Splenule noted. Adrenal glands: Normal noncontrast appearance. Kidneys and ureters: Persistent moderate to severe distention of the right renal collecting system. N o left hydronephrosis. Cortical thinning is evident on the right. Multiple renal cysts noted on the l eft. Ureters are nondistended bilaterally and somewhat poorly visualized. Bladder: Incompletely evaluated secondary to underdistention. The bladder is not well visualized. Pelvic organs: Uterus may be absent or atrophic. No adnexal masses. Bowel: Fluid suggested in the rectum. Diverticulosis of the sigmoid colon without wall thickening or pericolonic inflammatory change. Suture margin noted at the splenic flexure and hepatic flexure. Part ial colectomy is presumed. Poor delineation of the bowel in the absence of intravenous and oral contr ast. Abnormal appearance of a loop of small bowel in the superior pelvis, which appears to demonstrat e wall thickening. No convincing evidence of an obstruction at this site. Mild diffuse gastric wall t hickening may be present. The appendix is likely absent Peritoneal cavity: . Small volume ascites scattered in the upper abdomen and pelvis. This is similar to prior. Infiltration of the omentum and mesentery similar to prior PET/CT. No free intraperitoneal gas. Lymph nodes: No gross lymphadenopathy allowing for noncontrast technique. Vasculature: Atherosclerosis of the normal caliber abdominal aorta. Abdominal wall: Postsurgical changes of the ventral abdominal wall. Musculoskeletal: Degenerative changes of the spine. No destructive osseous lesion. IMPRESSION: 1. Persistent small volume ascites with extensive infiltrative changes in the mesentery and omentum. This is nonspecific. 2. Poor delineation of the bowel in the absence of intravenous and oral contrast. Postsurgical pope es of the colon. 3. Abnormal appearance of small bowel loops in the pelvis suggest enteritis. Ischemic bowel is not e xcluded. No gross evidence of perforation. 4. Extensive consolidation in the right middle lobe and to a lesser extent the right lower lobe cons istent with pneumonia. Follow-up advised. ACT 112: Negative or not required by law. Electronically signed by: Kedar Larson M.D. 11/24/2019 11:42 AM
[2019-11-24 11:47] LABS: Alkaline Phosphatase 56 U/L (45-117); Bilirubin,Total 0.7 mg/dl (0.2-1); Creatine Kinase 46 U/L (26-192); Creatine Kinase MB 1.4 ng/ml (0.5-3.6); Globulin 3.2 gm/dl (2.5-4.0); Total Protein 6.5 gm/dl (6.4-8.2); Troponin I < 0.015 ng/ml (0-0.045)
[2019-11-24 11:50] LABS: Basophils # (auto) 0.02 K/uL (0-0.2); Basophils % (auto) 0.1 %; Immature Granulocytes # (auto) 0.07 K/uL (0.00-0.02); Immature Granulocytes % (auto) 0.3 %; Lymphocytes # (auto) 1.17 K/uL (1.2-3.4); Lymphocytes % (auto) 4.9 %; Monocytes # (auto) 1.27 K/uL (0.11-0.59); Monocytes % (auto) 5.4 %; Neutrophils # (auto) 21.11 K/uL (1.4-6.5); Neutrophils % (auto) 89.3 %
[2019-11-24] MEDS ORDERED: VANCOMYCIN CONSULT ACTIVE PRN (12:06)
[2019-11-24] MEDS ORDERED: CEFEPIME 2,000 MG/20 ML VIAL IV STA (12:06)
[2019-11-24] MEDS ORDERED: SODIUM CHLORIDE 0.9% IV ONE (12:06)
[2019-11-24] MEDS ORDERED: VANCOMYCIN HCL IV ONE (12:06)
[2019-11-24 12:30] LABS: C Reactive Protein 5.18 mg/dl (0-0.29); Ferritin 138.9 ng/ml (8-388)
[2019-11-24] MEDS ORDERED: VANCOMYCIN HCL 1,500 MG in SODIUM CHLORIDE 0.9% 500 ML IV ONE (13:00)
[2019-11-24 13:26] LABS: Influenza A virus by PCR Neg for Influ A (Neg); Influenza B virus by PCR Neg for Influ B (Neg)
--- NOTE | 2019-11-24 13:47 | History & Physical Report ---
Date of Service November 24, 2019 Assessment & Plan (1) Neutropenic fever: (2) Pneumonia: (3) Pancytopenia: (4) Metastatic breast cancer: (5) CKD (chronic kidney disease), stage III: (6) DM type 2 (diabetes mellitus, type 2): (7) Leukocytosis: (8) DVT prophylaxis: History of Present Illness Primary Care Provider: Mana Thompson DO Allergies Allergy/AdvReac Type Severity Reaction Status Date / Time Influenza Virus Vaccines Allergy Mild SWELLING Verified 11/24/19 10:26 Home Medications Home Medications Medication Instructions Recorded Confirmed Type alprazolam [Xanax] 0.25 mg PO DAILY PRN 03/28/18 11/24/19 History ascorbic acid (vitamin C) [Vitamin 500 mg PO QAM 03/28/18 11/24/19 History C] calcium carbonate-vitamin D3 1 tab PO BID 03/28/18 11/24/19 History [Os-Arcadio 500 + D3] escitalopram oxalate [Lexapro] 10 mg PO QAM 03/28/18 11/24/19 History multivitamin 1 tab PO QAM 03/28/18 11/24/19 History rosuvastatin [Crestor] 20 mg PO QAM 03/28/18 11/24/19 History Tradjenta 5 mg PO QAM 07/07/19 11/24/19 History cranberry 400 mg PO QAM 07/07/19 11/24/19 History amitriptyline 25 mg PO HS 07/12/19 11/24/19 History amlodipine 5 mg PO QAM 07/12/19 11/24/19 History esomeprazole magnesium [Nexium] 20 mg PO QAM 07/12/19 11/24/19 History latanoprost 1 drp [facility] 07/12/19 11/24/19 History ondansetron HCl [Zofran] 4 mg PO Q6H PRN 07/12/19 11/24/19 History Ibrance 100 mg PO DAILY 10/01/19 11/24/19 History metoprolol tartrate 100 mg PO BID 10/01/19 11/24/19 History oxycodone-acetaminophen [Percocet] 1 tab PO Q8H PRN 10/01/19 11/24/19 History diphenhydramine-acetaminophen 1 tab PO HS PRN 11/24/19 11/24/19 History [Tylenol PM Extra Strength] Past Med/Surg History Social History Preferred Language: Tristanian Communication Ability: Effective Lean Manager Required: No Beliefs That Will Affect Care: None marital status: Current Living Situation: Spouse Current Living Situation Comment: lives with Other Information That Helps Us Care for You: No Feels Safe at Home: Yes Safety Concerns: Feels Safe At This Time Smoking Status: Never smoker Hx Alcohol Use: No Hx Substance Use: No Results & Data Results & Data ([facility]) Vital Signs (Past 12 Hours) Vital Signs Temp Pulse Pulse Resp BP BP Pulse Ox 11/24/19 13:00 85 18 127/52 L 92 11/24/19 11:43 84 18 106/50 L 90 11/24/19 10:11 97 11/24/19 09:49 37.4 C 89 20 112/58 L 97 Laboratory Results Short CBC 11/24/19 Range/Units 10:44 WBC 23.64 H (4.8-10.8) K/uL Hgb 8.4 L (12.0-16.0) g/dL Hct 24.9 L (37-47) % Plt Count 289 (130-400) K/uL BMP 11/24/19 10:44 Sodium 133 L Potassium 3.9 Chloride 98 Carbon Dioxide 27 BUN 27 H Creatinine 1.34 H Glucose 195 H Calcium 8.9 Cardiac Enzymes 11/24/19 Range/Units 10:44 Total Creatine Kinase 46 (26-192) U/L CK-MB (CK-2) 1.4 (0.5-3.6) ng/ml Troponin I < 0.015 (0-0.045) ng/ml Liver Function 11/24/19 Range/Units 10:44 Total Bilirubin 0.7 (0.2-1) mg/dl AST 26 (15-37) U/L ALT 17 (12-78) U/L Alkaline Phosphatase 56 (45-117) U/L Albumin 3.3 L (3.4-5.0) gm/dl (1) Pneumonia Laterality: right Lung location: middle lobe of lung Pneumonia type: due to unspecified organism Qualified Code(s): J18.9 - Pneumonia, unspecified organism
[2019-11-24] MEDS ORDERED: GLUCOSE 10 TABS/TUBE PO PRN (15:50)
[2019-11-24] MEDS ORDERED: GLUCOSE 40% GEL 15 GM TUBE PO PRN (15:50)
[2019-11-24] MEDS ORDERED: GLUCAGON FOR INJ 1 MG VIAL SQ PRN (15:50)
[2019-11-24] MEDS ORDERED: DEXTROSE 50% 50 ML SYRINGE IV PRN (15:50)
[2019-11-24] MEDS ORDERED: OXYCODONE/ACETAMINOPHEN 5mg/325mg TAB PO PRN (15:50)
[2019-11-24] MEDS ORDERED: ONDANSETRON INJ 2 MG/ML 2 ML VIAL IV PRN (15:50)
[2019-11-24] MEDS ORDERED: ACETAMINOPHEN 325 MG TAB PO PRN (15:50)
[2019-11-24] MEDS ORDERED: CARBOHYDRATES FOR HYPOGLYCEMIA PO PRN (15:50)
[2019-11-24] MEDS ORDERED: ALPRAZolam 0.25 MG TABLET PO PRN (15:50)
--- NOTE | 2019-11-24 15:51 | History & Physical Report ---
Date of Service November 24, 2019 Assessment & Plan (1) Fever: In immunocompromised patient Pt is 84 y/o F with PMH metastatic breast cancer, temporal arteritis, paroxysmal atrial fibrillation, HTN, DM II, CKD III scented to ER with complaint of vomiting or diarrhea, fever. Patient states yesterday started with fever of 101.7F. Recent admission September 2019 annual October 2019 for neutropenic fever, right-sided pneumonia. Also started with nausea, vomiting x6 episodes, diarrhea x6 episodes. Denies any hematemesis, melena, hematochezia. DDX: pneumonia, enteritis In ER axillary T: 37.4 P: 89, R: 20, BP: 112/58, 97% on RA. WBC: 23, Neut #21, H/H: 8.4/24.9 (hgb: 8.4 on 11/20/19), Lactate: 1.4, Procalcitonin: 3.5, ESR: 35, CRP: 5.1. Negative influenza. Negative Covid 19 testing -In ER given vancomycin, cefepime, 1 L NSS -Blood cultures pending, sputum culture pending -UA pending -Cefepime, vancomycin -IVF -CBC, BMP in a.m. (2) Pneumonia: CXR: slightly increased central predominant infiltrates in the right mid to lower lung -Sputum culture pending -Cefepime and vancomycin as above -ID consult -Consider pulmonology consult as patient has had persistent filtrate on CXR (3) Nausea, vomiting and diarrhea: Possible Enteritis DDX: C-diff, infectious diarrhea Pt with vomiting and diarrhea since yesterday. Yesterday upper abdominal cramping which has resolved. CT Abd/Pelvis: Persistent small volume ascites with extensive infiltrative changes in the mesentery and omentum. This is nonspecific. Poor delineation of the bowel in the absence of intravenous and oral contrast. Postsurgical changes of the colon. Abnormal appearance of small bowel loops in the pelvis suggest enteritis. Ischemic bowel is not excluded. No gross evidence of perforation. Extensive consolidation in the right middle lobe and to a lesser extent the right lower lobe consistent with pneumonia. -C-diff, stool studies pending -IVF -On Cefepime, Vancomycin as above. Will add Flagyl also -Clear liquid diet for now -Monitor CBC, BMP (4) Hypomagnesemia: Magnesium: 1.7 -Replace and monitor (5) Fall: Had fall today when trying to get out of bed while vomiting, slipped on rug and fell. Denies hitting head, LOC. Denies any injury or pain CT Head: no acute findings -Fall precautions (6) Breast cancer: Metastatic breast cancer following with Dr. Toribio -Sohail, Faslodex has been on hold per Dr. Toribio recommendations (7) Paroxysmal atrial fibrillation: Not on anticoagulation secondary to history of rectus sheath hematoma in 07/2019 Current sinus rhythm -Continue metoprolol (8) Hypertension: -Hold amlodipine and monitor BP tomorrow -Continue metoprolol (9) DM type 2 (diabetes mellitus, type 2): A1c: 6.6 in 10/2019 -Hold Tradjenta -Basal bolus insulin per protocol (10) CKD (chronic kidney disease), stage III: Cr: 1.3, Cr was 1.1 on 11/20/19 -Monitor renal functions -Avoid nephrotoxic agents when possible DVT Prophylaxis -SCDs DNR/DNI as per discussion with pt Follows with Dr Thompson for routine care Pt was seen and care coordinated with Dr Wang. See addendum History of Present Illness Chief Complaint: Fever, vomiting, diarrhea Primary Care Provider: Mana Thompson, DO Pt is 84 y/o F with PMH metastatic breast cancer, temporal arteritis, paroxysmal atrial fibrillation, HTN, DM II, CKD III scented to ER with complaint of vomiting or diarrhea, fever. Patient states yesterday started with fever of 101.7F. Also started with nausea, vomiting x6 episodes, diarrhea x6 episodes. Denies any hematemesis, melena, hematochezia. Patient states yesterday had some aching/cramping discomfort upper abdomen however that has since resolved. Patient states always has dry cough and does not feel like her cough is increased. Denies any shortness of breath or chest pain. Patient reports chemo has been on hold for the past 3 weeks. Patient reports approximately 6 AM today she was trying to quickly get out of bed secondary to vomiting when she slipped on her rug at bedside and fell onto her back. Patient denies hitting head, denies LOC. She denies any neck pain, extremity pain other other known injury or discomfort. Reports chronic back pain and states this is at baseline. Patient with history of hospitalization 10/01/2019-10/04/2019 for neutropenic fever, right-sided pneumonia. Patient with history of hospitalization 11/10/2019-11/13/2019 for neutropenic fever, pneumonia and had negative cover testing at that time and was discharged on cefuroxime. Reports has otherwise been staying at home except for Dr appointments. No known Covid 19 exposures. Denies BRANTLEY, dizziness, syncope, vision changes, neck pain, CP, SOB, orthopnea, palpitations, hemoptysis, sore throat, choking, otalgia, rhinorrhea, paresthesias, extremity weakness, extremity edema, rashes, urinary symptoms. Allergies Allergy/AdvReac Type Severity Reaction Status Date / Time Influenza Virus Vaccines Allergy Mild SWELLING Verified 11/24/19 10:26 Home Medications Home Medications Medication Instructions Recorded Confirmed Type alprazolam [Xanax] 0.25 mg PO HS PRN 03/28/18 11/24/19 History ascorbic acid (vitamin C) [Vitamin 500 mg PO QAM 03/28/18 11/24/19 History C] calcium carbonate-vitamin D3 1 tab PO BID 03/28/18 11/24/19 History [Os-Arcadio 500 + D3] escitalopram oxalate [Lexapro] 10 mg PO QAM 03/28/18 11/24/19 History multivitamin 1 tab PO QAM 03/28/18 11/24/19 History rosuvastatin [Crestor] 20 mg PO QAM 03/28/18 11/24/19 History Tradjenta 5 mg PO QAM 07/07/19 11/24/19 History cranberry 400 mg PO QAM 07/07/19 11/24/19 History amitriptyline 25 mg PO HS 07/12/19 11/24/19 History amlodipine 5 mg PO QAM 07/12/19 11/24/19 History esomeprazole magnesium [Nexium] 20 mg PO QAM 07/12/19 11/24/19 History latanoprost 1 drp [facility] 07/12/19 11/24/19 History ondansetron HCl [Zofran] 4 mg PO Q6H PRN 07/12/19 11/24/19 History Ibrance 100 mg PO DAILY 10/01/19 11/24/19 History metoprolol tartrate 100 mg PO BID 10/01/19 11/24/19 History oxycodone-acetaminophen [Percocet] 1 tab PO Q8H PRN 10/01/19 11/24/19 History diphenhydramine-acetaminophen 1 tab PO HS PRN 11/24/19 11/24/19 History [Tylenol PM Extra Strength] Past Med/Surg History Medical History (Updated 11/24/19 @ 18:22 by Serena Lopez PA-C) Acute hypoxemic respiratory failure Anxiety Arthritis Atrial tachycardia Cataracts, bilateral CKD (chronic kidney disease), stage III DM type 2 (diabetes mellitus, type 2) Dyslipidemia Goals of care, counseling/discussion HTN (hypertension) HX: breast cancer Metastatic breast cancer Paroxysmal atrial fibrillation S/P admission to ICU (intensive care unit) Temporal arteritis Surgical History H/O right mastectomy Jun 2018 History of appendectomy History of cataract surgery S/P partial colectomy Jul 2019 S/P LIZBETH-BSO Family History Mother Diabetes Social History Preferred Language: Divehi Communication Ability: Effective Php Wordpress Developer Required: No Beliefs That Will Affect Care: None marital status: Current Living Situation: Spouse Current Living Situation Comment: lives with Feels Safe at Home: Yes Smoking Status: Never smoker Hx Alcohol Use: No Hx Substance Use: No Review of Systems Review of Systems: All systems reviewed & are unremarkable except as noted in HPI & below Physical Exam Physical Exam: General: no acute distress, chronic ill appearing elderly female Head: normocephalic, atraumatic Eyes: PERRL, EOM's intact, conjunctiva non-injected, anicteric ENT: normal inspection external ears, nose, mucous membranes mildly dry Neck: supple, trachea midline, non-tender Lungs: clear, no respiratory distress, slightly diminished breath sounds RLL, otherwise no wheezing/rhonchi/rales or noted CV: RRR, no murmur, no JVD, no pretibial edema Abd: healed surgical scar mid abdomen, normal BS, soft, non-tender Ext: no cyanosis, no calf tenderness Neuro: A&O x 3, no focal deficits noted, normal affect Skin: warm, dry Results & Data Results & Data ([facility]) Vital Signs (Past 12 Hours) Vital Signs Temp Pulse Pulse Resp BP BP Pulse Ox 11/24/19 14:13 85 15 125/62 91 11/24/19 13:00 85 18 127/52 L 92 11/24/19 11:43 84 18 106/50 L 90 11/24/19 10:11 97 11/24/19 09:49 37.4 C 89 20 112/58 L 97 Laboratory Results CXR: IMPRESSION: 1. Decreased peripheral though slightly increased central predominant infiltrates in the right mid to lower lung. Ongoing pneumonia to be considered. Follow-up to resolution recommended. CT HEAD: IMPRESSION: 1. No acute intracranial abnormality. 2. Suggestion of old cerebellar hemispheric lacunar infarcts. CT ABD/PELVIS: IMPRESSION: 1. Persistent small volume ascites with extensive infiltrative changes in the mesentery and omentum. This is nonspecific. 2. Poor delineation of the bowel in the absence of intravenous and oral contrast. Postsurgical changes of the colon. 3. Abnormal appearance of small bowel loops in the pelvis suggest enteritis. Ischemic bowel is not excluded. No gross evidence of perforation. 4. Extensive consolidation in the right middle lobe and to a lesser extent the right lower lobe consistent with pneumonia. Follow-up advised. ECG Rate (beats per minute): 84 Rhythm: sinus rhythm Code Status & VTE Plan VTE Prophylaxis Plan VTE Prophylaxis will be ordered: Yes Supervising Physician Co-Signing Physician Notes Patient seen and examined by me, care coordinated with ERIKA Walton. Please refer to her note above for further detail. 84 y/o F with metastatic breast cancer undergoing chemotherapy, radiation; temporal arteritis, paroxysmal atrial fibrillation, HTN, DM II, CKD III who presented to ER with complaint of vomiting and diarrhea, fever. Patient states yesterday started with fever of 101.7F. Also started with nausea, vomiting x6 episodes, diarrhea x6 episodes. She fell this morning, from bed, due to nausea, fall was mechanical, patient never lost consciousness, has no complaints of hurting herself. Patient has history of multiple recent admissions, in October and in September which were significant for neutropenia and pneumonia. In the ED, on evaluation, chest imaging significant for stable/worsening pneumonia, white blood cell count elevated at 23.6 thousand. Calcitonin 3.6. She was tested for coronavirus 2 weeks ago, which was negative. In ED patient received 1 L of normal saline, vancomycin and cefepime. Blood cultures are pending. Patient tells me that she has no sputum production, and her cough has been dry. On my evaluation, patient is an elderly pale female, lying in bed, in no acute distress, comfortably breathing on room air. There are some mild rhonchi noted diffusely, no wheezing or crackles noted. Heart sounds regular, no murmur noted. Abdomen is soft, nontender, nondistended, normal bowel sounds. Patient is alert and oriented and answers questions appropriately. Moves all extremities spontaneously and without difficulty. Skin and extremities are warm and well-perfused. Given persistent pneumonia, will continue broad-spectrum antibiotics, will continue vancomycin cefepime and will add Flagyl. Will obtain sputum culture. We will consult infectious disease, and possibly also pulmonary given persistence of her infection. COVID-19 was retested, and negative. Patient has history of rectus sheath hematoma, therefore no pharmacological DVT prophylaxis, SCDs only. This is also the reason why she is not on anticoagulation for her paroxysmal A. fib. Given recent history of diarrhea, will obtain C. difficile. Magnesium 1.7 replaced. Other significant labs, hemoglobin 8.4 and creatinine 1.34. We will continue to closely monitor. MD Efren (1) Fever Fever type: due to other condition Qualified Code(s): R50.81 - Fever presenting with conditions classified elsewhere (2) Breast cancer Breast location: unspecified site of breast Estrogen receptor status: unsp ecified Laterality: unspecified laterality Patient sex: female Qualified C ode(s): C50.919 - Malignant neoplasm of unspecified site of unspecified female breast (3) Pneumonia Laterality: right Lung location: middle lobe of lung Pneumonia type: due to unspecified organism Qualified Code(s): J18.9 - Pneumonia, unspecified organism
[2019-11-24] MEDS: SODIUM CHLORIDE 0.9% 1000ML 1,000 ML IV SCH (16:01)
[2019-11-24] MEDS: MAGNESIUM SULFATE / D5W 1 GM/100 ML BAG IV SCH ×2 (16:34→17:30)
[2019-11-24] MEDS: INSULIN ASPART 100 UNITS/ML 3 ML PEN SC SCH ×2 (17:29→21:11)
--- NOTE | 2019-11-24 18:17 | Pharmacy Report ---
Pharmacy Abx Initial Consult - Date of Service November 24, 2019 - Pharmacy Dosing Scope Date of Consult: 11/24/19 Consultation requested by: Dr. Lowe Pharmacy is consulted to initiate Vancomycin IV/PO dosing therapy, order appropriate labs and adjust drug dose/frequency. - Subjective The patient is a 84 year old F admitted on 11/24/19 13:52. - Objective Height: 5 ft 4 in Weight: 55 kg Vital Signs (Past 12hrs): Vital Signs Temp Pulse Pulse Pulse Resp BP BP 11/24/19 15:47 37.2 C 88 16 127/67 11/24/19 14:13 85 15 125/62 11/24/19 13:00 85 18 127/52 L 11/24/19 11:43 84 18 106/50 L 11/24/19 10:11 11/24/19 09:49 37.4 C 89 20 112/58 L Pulse Ox 11/24/19 15:47 94 11/24/19 14:13 91 11/24/19 13:00 92 11/24/19 11:43 90 11/24/19 10:11 97 11/24/19 09:49 97 Lab Results (24hrs): Laboratory Tests (24 Hours) 11/24/19 11/24/19 11/24/19 10:44 10:44 10:44 WBC Neut # (Auto) ESR 35 H Creatinine Est Cr Clr Drug Dosing Total Creatine Kinase C-Reactive Protein 5.18 H Procalcitonin 3.59 H 11/24/19 11/24/19 10:44 10:44 WBC 23.64 H Neut # (Auto) 21.11 H ESR Creatinine 1.34 H Est Cr Clr Drug Dosing Not Reportable Total Creatine Kinase 46 C-Reactive Protein Procalcitonin Micro Results: 11/24/19 10:44 Aerobic Blood Culture - Pending Blood Anaerobic Blood Culture - Pending 11/24/19 10:40 Aerobic Blood Culture - Pending Blood Anaerobic Blood Culture - Pending - Risk Factors for Resistance * Hospitalization for 48 hours or more within the past 90 days 09/30-10/03, 11/10- 11/12 * Immunocompromised? metastatic breast cancer * Antimicrobial use within the last 90 days: vanc, zosyn, ceftin - Assessment & Plan Assessment 84 year old F complains of vomiting/diarrhea and fever. Admitted for pneumonia/enteritis. * Pt has history of DM, CKD Stage III, metastatic cancer. * Baseline SCr looks to be around 1 mg/dL. SCr is slightly elevated at this time. Expect it may improve with hydration. * MRSA nasal swab ordered. * Blood cultures pending. Plan Vancomycin for treatment of Pneumonia. Vancomycin IV * Loading dose: 1500 mg (27 mg/kg) administered in the ED * Maintenance dose: none ordered at this time. Will reassess renal function in am. Random vanc level also ordered for am labs. * Goal trough level for pneumonia : 15 to 20 mcg/mL * Random level ordered for 11/25/19 with am labs Pt is also ordered Cefepime 2gm q24 hours, which is dosed appropriately for renal function at this time. Pharmacy will continue to follow and will adjust dose/frequency as necessary. Thank you.
[2019-11-24] MEDS: metroNIDAZOLE 500 MG/100 ML BAG IV SCH (18:36)
[2019-11-24] MEDS: CALCIUM 600MG + VIT D 400 IU TAB PO SCH (19:50)
[2019-11-24] MEDS: LATANOPROST 0.005% OP SOLN 2.5 ML BTL OPL SCH (19:50)
[2019-11-24] MEDS: AMITRIPTYLINE HCL 25 MG TAB PO SCH (19:51)
[2019-11-24] MEDS: METOPROLOL TARTRATE 100 MG TAB PO SCH (19:51)
[2019-11-24] MEDS: INSULIN GLARGINE SOLOSTAR 100 UNITS/ML 3 ML PEN SC SCH (21:12)
--- NOTE | 2019-11-24 23:39 | Electrocardiogram Report ---
Test Reason : Blood Pressure : / mmHG Vent. Rate : 084 BPM Atrial Rate : 084 BPM P-R Int : 196 ms QRS Dur : 086 ms QT Int : 404 ms P-R-T Axes : 032 000 030 degrees QTc Int : 477 ms Normal sinus rhythm Normal ECG When compared with ECG of 10-NOV-2019 08:55, Sinus rhythm has replaced Atrial fibrillation Borderline criteria for Anterior infarct are no longer Present Borderline criteria for Anterolateral infarct are no longer Present ST no longer depressed in Inferior leads Confirmed by Jay Marcum ([id number]) on 11/24/2019 11:39:20 PM Referred By: REFERRED SELF Confirmed By:Jay Marcum
[2019-11-25] MEDS: SODIUM CHLORIDE 0.9% 1000ML 1,000 ML IV SCH (02:13)
[2019-11-25] MEDS: metroNIDAZOLE 500 MG/100 ML BAG IV SCH ×3 (02:14→17:19)
[2019-11-25 06:54] LABS: Hematocrit (blood only) 21.6 % (37-47); Hemoglobin 7.3 g/dL (12.0-16.0); Mean Corpuscular Hemoglobin 33.8 pg (25-34); Mean Corpuscular Hgb Conc 33.8 g/dL (32-36); Mean Platelet Volume 9.4 fL (7.4-10.4); Platelet Count 197 K/uL (130-400); RDW Standard Deviation 62.8 fL (36.4-46.3); Red Blood Count 2.16 M/uL (4.2-5.4); White Blood Count 14.07 K/uL (4.8-10.8)
[2019-11-25 07:23] LABS: BUN Creatinine Ratio 19.1 (10-20); Calcium 8.4 mg/dl (8.5-10.1); Creatinine Clr Calc Pharmacy 34.8 ml/min; Est GFR (African American) 57.1; Est GFR (Non-African American) 49.3; Magnesium 2.3 mg/dl (1.8-2.4); Potassium 3.6 mmol/L (3.5-5.1)
[2019-11-25] MEDS: ASCORBIC ACID 500 MG TAB PO SCH (08:43)
[2019-11-25] MEDS: ROSUVASTATIN CALCIUM 20 MG TAB PO SCH (08:43)
[2019-11-25] MEDS: ESCITALOPRAM OXALATE 10 MG TAB PO SCH (08:43)
[2019-11-25] MEDS: PANTOprazole 40 MG TAB PO SCH (08:43)
[2019-11-25] MEDS: MULTIVITAMIN TAB PO SCH (08:43)
[2019-11-25] MEDS: CALCIUM 600MG + VIT D 400 IU TAB PO SCH ×2 (08:43→19:19)
[2019-11-25] MEDS: METOPROLOL TARTRATE 100 MG TAB PO SCH ×2 (08:44→19:19)
[2019-11-25] MEDS: INSULIN GLARGINE SOLOSTAR 100 UNITS/ML 3 ML PEN SC SCH ×2 (08:47→20:59)
[2019-11-25] MEDS: INSULIN ASPART 100 UNITS/ML 3 ML PEN SC SCH ×4 (08:48→21:00)
[2019-11-25 09:12] LABS: Appearance Urine Clear (Clear); Bilirubin Urine Negative (Negative); Blood Urine Negative (Negative); Color Urine Yellow; Glucose Urine UA Negative (Negative); Ketones Urine Negative (Negative); Leukocyte Esterase Urine Negative (Negative); Nitrite Urine Negative (Negative); Protein Urine Negative (Negative); Specific Gravity Urine 1.011 (1.000-1.030); Urobilinogen Urine Negative (Negative)
[2019-11-25] MEDS ORDERED: VANCOMYCIN HCL 750 MG in SODIUM CHLORIDE 0.9% 250 ML IV SCH (10:00)
--- NOTE | 2019-11-25 10:28 | CT Scan Report ---
CT chest wo con CLINICAL HISTORY: 84 years-old Female presenting with pneumonia. TECHNIQUE: Multidetector CT imaging of the chest was performed without the use of intravenous contras t. IV contrast: None. One or more dose lowering techniques were used consistent with the principles o f ALARA (as low as reasonably achievable), including automatic exposure control, mA or kV adjustment to individual patient size, and/or use of iterative reconstruction. COMPARISON: 07/23/2019. CT DOSE (mGy.cm): The estimated cumulative dose is 179.55 mGy.cm. FINDINGS: Projects Manager topogram: Right perihilar opacity. Soft tissues: Normal thyroid. Postsurgical changes of right mastectomy. Scattered subcentimeter media stinal lymph nodes most prominently in the right paratracheal and precarinal regions measuring up to 6 mm in short axis. Evaluation of the antoni limited in the absence of intravenous contrast. Atheroscle rosis of the aorta. Top normal heart size. Coronary artery calcification. Decreased size of the now s mall simple appearing right pleural effusion. Interval development of small volume ascites in the upp er abdomen with both perihepatic and perisplenic fluid noted as well as infiltrative changes in the o mentum and mesentery likely related to fluid. Lungs and airways: No pneumothorax. Small tracheal diverticulum at the thoracic inlet. Pulmonary paula sid are not significantly enlarged relative to adjacent bronchi. Trace interlobular septal thickenin g predominately in the right upper lobe and a right lung base. Slightly improved aeration of the righ t middle lobe though there is persistent consolidation in the lateral segment with scattered subsegme ntal endobronchial debris. Interval decrease in consolidation within the right upper lobe with persis tent peribronchovascular and peripheral consolidation in the anterior segment and minimal dependent c onsolidation or atelectasis in the posterior segment. Tree-in-bud opacities are evident in the right upper lobe posterior segment, new from prior. Lesser tree-in-bud opacities noted in the anterior basa l and lateral basal right lower lobe, much of which is new from prior. There is no central bronchial obstruction. Evaluation for a central lesion is degraded by lack of intravenous contrast. Few scatter ed nonspecific punctate solid nodules in the left lung. No significant consolidation. Trace backgroun d emphysema may be present. Musculoskeletal: Degenerative changes of the spine. No destructive osseous lesion. IMPRESSION: 1. Interval decrease in consolidation within the right upper lobe though there is definite persisten t consolidation and new tree-in-bud opacities. Similarly improved aeration of the right middle lobe t vickie some consolidation remains. New tree-in-bud opacities in the right lower lobe. Findings overall suggest persistent inflammatory or infectious etiology. No convincing evidence of the central obstru cting lesion allowing for the lack of intravenous contrast, which mildly decreases diagnostic sensiti vity. Repeat follow-up chest CT within 3 months with intravenous contrast is recommended. Additionall y, bronchoscopy could be considered at this time given persistence of the presumed infection. A neopl astic etiology is not favored though difficult to entirely exclude. 2. Decreased size of the now small right pleural effusion. ACT 112: Positive. There are findings on this exam that require communication between the performing entity and the patient following Patient Test Result Information Act ([place] Act 112) guidelines. Electronically signed by: Kedar Larson M.D. 11/25/2019 10:27 AM
[2019-11-25] MEDS: CEFEPIME 2,000 MG in SYRINGE 7.5 ML IV SCH (12:35)
--- NOTE | 2019-11-25 13:32 | Infectious Disease Consult ---
Date of Consultation November 25, 2019 Assessment & Plan (1) Pneumonia: continue current abx, clinically improved, upon d/c would suggest transition to po augmentin 875mg po bid to complete 7 days total. continue supportive care. wbc improved. ok for d/c from ID standpoint when otherwise stable. (2) Leukocytosis: History of Present Illness Attending Physician: Ezequiel López MD pt admitted with fever 101 at home. has h/o metastatic breast cancer. she had ct abd in ER showing RML infiltrate. started on vanco, cefepime and flagyl. tolerating well. on my exam she is eating lunch, states she is feeling significantly better, asking to go home. afebrile since admission. wbc initially 23 now 14. ESR 35, creat 1.0 procalcitonin 3. UA negative, c diff pending, denies any abd pain, n/v/d on my exam. COVID and flu negative. Blood cultures pending. deneis cp, sob, cough. no f/c. Allergies Allergy/AdvReac Type Severity Reaction Status Date / Time Influenza Virus Vaccines Allergy Mild SWELLING Verified 11/24/19 10:26 Home Medications Home Medications Medication Instructions Recorded Confirmed Type alprazolam [Xanax] 0.25 mg PO HS PRN 03/28/18 11/24/19 History ascorbic acid (vitamin C) [Vitamin 500 mg PO QAM 03/28/18 11/24/19 History C] calcium carbonate-vitamin D3 1 tab PO BID 03/28/18 11/24/19 History [Os-Arcadio 500 + D3] escitalopram oxalate [Lexapro] 10 mg PO QAM 03/28/18 11/24/19 History multivitamin 1 tab PO QAM 03/28/18 11/24/19 History rosuvastatin [Crestor] 20 mg PO QAM 03/28/18 11/24/19 History Tradjenta 5 mg PO QAM 07/07/19 11/24/19 History cranberry 400 mg PO QAM 07/07/19 11/24/19 History amitriptyline 25 mg PO HS 07/12/19 11/24/19 History amlodipine 5 mg PO QAM 07/12/19 11/24/19 History esomeprazole magnesium [Nexium] 20 mg PO QAM 07/12/19 11/24/19 History latanoprost 1 drp OPL HS 07/12/19 11/24/19 History ondansetron HCl [Zofran] 4 mg PO Q6H PRN 07/12/19 11/24/19 History Ibrance 100 mg PO DAILY 10/01/19 11/24/19 History metoprolol tartrate 100 mg PO BID 10/01/19 11/24/19 History oxycodone-acetaminophen [Percocet] 1 tab PO Q8H PRN 10/01/19 11/24/19 History diphenhydramine-acetaminophen 1 tab PO HS PRN 11/24/19 11/24/19 History [Tylenol PM Extra Strength] Patient History Medical History Acute hypoxemic respiratory failure Anxiety Arthritis Atrial tachycardia Cataracts, bilateral CKD (chronic kidney disease), stage III DM type 2 (diabetes mellitus, type 2) Dyslipidemia Goals of care, counseling/discussion HTN (hypertension) HX: breast cancer Metastatic breast cancer Paroxysmal atrial fibrillation S/P admission to ICU (intensive care unit) Temporal arteritis Surgical History H/O right mastectomy Jun 2018 History of appendectomy History of cataract surgery S/P partial colectomy Jul 2019 S/P LIZBETH-BSO Family History Mother Diabetes Social History Preferred Language: Kenyan Communication Ability: Effective Position Classification Manager Required: No Beliefs That Will Affect Care: None marital status: Current Living Situation: Spouse Current Living Situation Comment: lives with Feels Safe at Home: Yes Smoking Status: Never smoker Hx Alcohol Use: No Hx Substance Use: No Review of Systems Review of Systems: All systems reviewed & are unremarkable except as noted in HPI & below Physical Exam Constitutional: WD/WN, vitals as above Eyes: PERRL, conjunctivae normal, anicteric sclerae ENMT: external ear and nose normal, oropharynx normal Neck: normal visual inspection Respiratory: normal respiratory effort, lungs clear to auscultation Cardiovascular: RRR, no murmur, no edema Gastrointestinal (Abdomen): normal bowel sounds, soft, nontender, no hepatosplenomegaly Musculoskeletal: no cyanosis or clubbing, extremities motor strength 5/5 Skin: no rashes, warm and dry Psychiatric: A+Ox3, euthymic affect Results & Data ([facility]) Vital Signs (Past 12 Hours) Vital Signs Temp Pulse Pulse Resp BP Pulse Ox 11/25/19 11:31 36.8 C 69 16 150/68 H 92 11/25/19 08:00 83 11/25/19 07:11 36.8 C 84 16 146/67 H 92 11/25/19 03:53 37.1 C 84 18 129/66 92 PG Care Time/CCT Total # of Minutes Spent Total Time Spent with Patient: Total time spent is greater than 50% in coordination of care (as documented) at patient's floor/unit and/or counseling patient: Coding Level of Care Code 59614 Inpt Consult Level 4 Diagnoses Pneumonia J18.9 Laterality: unspecified laterality Lung location: unspecified part of lung Pneumonia type: due to unspecified organism Leukocytosis D72.829 Leukocytosis type: unspecified (1) Leukocytosis Leukocytosis type: unspecified Qualified Code(s): D72.829 - Elevated white blood cell count, unspecified (2) Pneumonia Laterality: unspecified laterality Lung location: unspecified part of lung Pneumonia type: due to unspecified organism Qualified Code(s): J18.9 - Pneumonia, unspecified organism
[2019-11-25] MEDS: LOPERAMIDE HCL 2 MG CAP PO PRN ×2 (14:30→18:13)
[2019-11-25] MEDS: AMITRIPTYLINE HCL 25 MG TAB PO SCH (19:19)
--- NOTE | 2019-11-25 19:31 | Hospitalist Progress Note ---
Date of Service November 25, 2019 Assessment & Plan (1) Fever: LIKELY SECONDARY TO RIGHT SIDED PNEUMONIA Pt is 84 y/o F with PMH metastatic breast cancer, temporal arteritis, paroxysmal atrial fibrillation, HTN, DM II, CKD III scented to ER with complaint of vomiting or diarrhea, fever. Patient states yesterday started with fever of 101.7F. Recent admission September 2019 annual October 2019 for neutropenic fever, right-sided pneumonia. Also started with nausea, vomiting x6 episodes, diarrhea x6 episodes. Denies any hematemesis, melena, hematochezia. DDX: pneumonia, enteritis In ER axillary T: 37.4 P: 89, R: 20, BP: 112/58, 97% on RA. WBC: 23, Neut #21, H/H: 8.4/24.9 (hgb: 8.4 on 11/20/19), Lactate: 1.4, Procalcitonin: 3.5, ESR: 35, CRP: 5.1. Negative influenza. Negative Covid 19 testing 11/25/[address] chest: 1. Interval decrease in consolidation within the right upper lobe though there is definite persistent consolidation and new tree-in-bud opacities. Similarly improved aeration of the right middle lobe though some consolidation remains. New tree-in-bud opacities in the right lower lobe. Findings overall suggest persistent inflammatory or infectious etiology. No convincing evidence of the central obstructing lesion allowing for the lack of intravenous contrast, which mildly decreases diagnostic sensitivity. Repeat follow-up chest CT within 3 months with intravenous contrast is recommended. Additionally, bronchoscopy could be considered at this time given persistence of the presumed infection. A neoplastic etiology is not favored though difficult to entirely exclude. 2. Decreased size of the now small right pleural effusion. Blood cultures: pending Nasal MRSA: negative continue Zosyn, transition to Augmentin on d/c per ID will consult Pulmonary SVC for persistent R sided consolidation (2) Nausea, vomiting and diarrhea: Possible Enteritis DDX: C-diff, infectious diarrhea Pt with vomiting and diarrhea since yesterday. Yesterday upper abdominal cramping which has resolved. CT Abd/Pelvis: Persistent small volume ascites with extensive infiltrative changes in the mesentery and omentum. This is nonspecific. Poor delineation of the bowel in the absence of intravenous and oral contrast. Postsurgical changes of the colon. Abnormal appearance of small bowel loops in the pelvis suggest enteritis. Ischemic bowel is not excluded. No gross evidence of perforation. Extensive consolidation in the right middle lobe and to a lesser extent the right lower lobe consistent with pneumonia. -C-diff: Negative stool studies: pending - PRN imodium (3) Hypomagnesemia: Magnesium: 1.7 -Replaced Mg now 2.3 (4) Fall: Had fall when trying to get out of bed while vomiting, slipped on rug and fell. Denies hitting head, LOC. Denies any injury or pain CT Head: no acute findings -Fall precautions PT and OT evaluation (5) Breast cancer: Metastatic breast cancer following with Dr. Toribio -Sohail, Faslodex has been on hold per Dr. Toribio recommendations (6) Paroxysmal atrial fibrillation: Not on anticoagulation secondary to history of rectus sheath hematoma in 07/2019 Current sinus rhythm -Continue metoprolol (7) Hypertension: -continue Metoprolol and Amlodipine (8) DM type 2 (diabetes mellitus, type 2): A1c: 6.6 in 10/2019 -Hold Tradjenta -Basal bolus insulin per protocol (9) CKD (chronic kidney disease), stage III: Cr: 1.3, Cr was 1.1 on 11/20/19 -Monitor renal functions -Avoid nephrotoxic agents when possible DVT Prophylaxis -SCDs in light of history of rectus sheath hematoma DNR/DNI as per discussion with pt lives at home Follows with Dr Thompson for routine care Admission and Anticipated Discharge Date Admission Date: November 24, 2019 Subjective ff up for pneumonia seen resting in bed, comfortable denies dyspnea, cough, sputum, fever/chills having 2-3 loose BMs today, non bloody, no abdominal pain, nausea no other symptoms Review of Systems Review of Systems: All systems reviewed & are unremarkable except as noted in HPI & below Physical Exam Physical Exam: General- oriented x 3, not in distress, speaks in sentences with no effort or accessory muscle use Eyes- anicteric Neck- no JVD Lungs- mild rhonchi on the right, clear on the left Heart- normal rate, regular rhythm; no murmurs Abdomen- normal bowel sounds, nondistended, soft, nontender Extremities- no pretibial edema, no calf tenderness Neuro- alert, oriented x 3; no gross focal neurologic deficits Skin- warm & dry Results & Data Results & Data ([facility]) Vital Signs (Past 12 Hours) Vital Signs Temp Pulse Pulse Resp BP Pulse Ox 11/25/19 19:17 122 H 134/68 11/25/19 18:56 37.2 C 101 H 20 149/61 H 96 11/25/19 15:48 37.5 C 11/25/19 15:47 37.0 C 86 18 159/72 H 93 11/25/19 15:08 85 11/25/19 11:31 36.8 C 69 16 150/68 H 92 11/25/19 08:00 83 (1) Fever Fever type: unspecified Qualified Code(s): R50.9 - Fever, unspecified (2) Fall Encounter type: initial encounter Qualified Code(s): W19.XXXA - Unspecified fall, initial encounter (3) Breast cancer Breast location: unspecified site of breast Estrogen receptor status: unspecified Laterality: unspecified laterality Patient sex: female Qualified Code(s): C50.919 - Malignant neoplasm of unspecified site of unspecified female breast
[2019-11-25 19:42] LABS: Potassium 3.5 mmol/L (3.5-5.1)
[2019-11-25] MEDS ORDERED: POTASSIUM CHLORIDE 20 MEQ TABCR PO STA (20:20)
[2019-11-25] MEDS: LATANOPROST 0.005% OP SOLN 2.5 ML BTL OPL SCH (21:01)
[2019-11-26] MEDS: metroNIDAZOLE 500 MG/100 ML BAG IV SCH ×2 (02:08→09:06)
[2019-11-26 05:21] LABS: Creatinine Clr Calc Pharmacy 33.2 ml/min; Est GFR (Non-African American) 46.6
[2019-11-26] MEDS: ESCITALOPRAM OXALATE 10 MG TAB PO SCH (08:57)
[2019-11-26] MEDS: CALCIUM 600MG + VIT D 400 IU TAB PO SCH (08:57)
[2019-11-26] MEDS: METOPROLOL TARTRATE 100 MG TAB PO SCH (08:57)
[2019-11-26] MEDS: MULTIVITAMIN TAB PO SCH (08:57)
[2019-11-26] MEDS: ASCORBIC ACID 500 MG TAB PO SCH (08:58)
[2019-11-26] MEDS: PANTOprazole 40 MG TAB PO SCH (08:58)
[2019-11-26] MEDS: INSULIN GLARGINE SOLOSTAR 100 UNITS/ML 3 ML PEN SC SCH (09:01)
[2019-11-26] MEDS: INSULIN ASPART 100 UNITS/ML 3 ML PEN SC SCH ×2 (09:02→12:20)
[2019-11-26] MEDS: ROSUVASTATIN CALCIUM 20 MG TAB PO SCH (09:31)
--- NOTE | 2019-11-26 10:41 | Pulmonary Consultation ---
Date of Consultation November 26, 2019 Assessment & Plan (1) Pneumonia: Chest x-ray 11/24/2019: Right lower lobe infiltrate is appreciated, right-sided costophrenic angle is blunted, left-sided costophrenic angle and cardiophrenic angle clear. Chest x-ray compared to the one done on 11/10/2019. The infiltrate has decreased in size and density. CT chest 11/25/2019 personally reviewed: Patient has multilobar infiltrate on the right middle and right lower lobe with associated tree-in-bud. Mild mediastinal lymphadenopathy. Small pleural effusion. This CAT scan was compared to the one done in 07/23/2019 at that time patient had right upper lobe infiltrate with moderate amount of pleural effusion. --Multilobar right-sided pneumonia Influenza negative, Covid-19 negative With leukocytosis, elevated procalcitonin, ESR and CRP The likelihood of it being pneumonia is high. Patient did come in with diarrhea and nausea. Would add atypical coverage for the current regimen to cover for Legionella. Follow-up urine Legionella and mycoplasma. Patient's QTC is 477 it is a bit on the higher side would recommend keeping potassium greater than 4, magnesium greater than 2, phosphorus greater than 3. Repeat EKG in the morning. Nasal MRSA has been ordered follow-up if it is negative can discontinue the vancomycin. Follow-up sputum culture Given that the density has decreased and the pleural effusion has decreased compared to before the likelihood of it being malignancy is low but still cannot be ruled out and the patient has metastatic breast CA. The next best step would be to repeat a CT chest after 10 days of antibiotics within 3 months. Patient understand the plan and is agreeable to it. --Right-sided pleural effusion Small on the CAT scan Will check with bedside ultrasound if there is significant amount we will try to do thoracentesis Plan: Continue with antibiotics for at least 7 to 10 days. Follow-up urine Legionella and mycoplasma. Would repeat a CT chest in 3 months. If the patient still has persistent infiltrates that bronchoscopy could be thought of. No plan for bronchoscopy on this admission. Please note the above document was generated using voice recognition software. It may contain grammatical, syntax or spelling errors. Laterality: unspecified laterality Lung location: unspecified part of lung Pneumonia type: due to unspecified organism Qualified Code(s): J18.9 - Pneumonia, unspecified organism (2) Pleural effusion: (3) Breast cancer: Breast location: unspecified site of breast Estrogen receptor status: unspecified Laterality: unspecified laterality Patient sex: female Qualified Code(s): C50.919 - Malignant neoplasm of unspecified site of unspecif ied female breast (4) H/O right mastectomy: History of Present Illness Attending Physician: Vera Banks MD History of Present Illness 84-year-old female with past medical history of metastatic breast cancer involving transverse colon diagnosed 07/17/2019 following up with cancer clinic, paroxysmal A. fib, hypertension, diabetes type 2 was admitted to the hospital with complaints of nausea vomiting nonbloody nonbilious and diarrhea nonbloody. Patient has been having chronic cough which is been going since 6 months with clear phlegm. No change in consistency or frequency of cough. Patient denies any shortness of breath, no chest pain, no dysuria. Patient denies any dysphagia or odynophagia. No choking-like episodes while eating. No runny nose, no tearing from the eyes. No headache, no dizziness. No recent travel history. No recent sick contacts. No night sweats. No weight loss. Patient was in the hospital 11/10/2019-11/13/2019 right right lower lobe pneum onia. And she was discharged on antibiotics Patient was not taking recently any antibiotics. Social history: Non-smoker, no illicit drug use, no alcohol use. She is retired. No pets at home. Personal history of metastatic breast cancer. Chemo is on hold since the last 3 weeks. Allergies Allergy/AdvReac Type Severity Reaction Status Date / Time Influenza Virus Vaccines Allergy Mild SWELLING Verified 11/24/19 10:26 Home Medications Home Medications Medication Instructions Recorded Confirmed Type alprazolam [Xanax] 0.25 mg PO HS PRN 03/28/18 11/24/19 History ascorbic acid (vitamin C) [Vitamin 500 mg PO QAM 03/28/18 11/24/19 History C] calcium carbonate-vitamin D3 1 tab PO BID 03/28/18 11/24/19 History [Os-Arcadio 500 + D3] escitalopram oxalate [Lexapro] 10 mg PO QAM 03/28/18 11/24/19 History multivitamin 1 tab PO QAM 03/28/18 11/24/19 History rosuvastatin [Crestor] 20 mg PO QAM 03/28/18 11/24/19 History Tradjenta 5 mg PO QAM 07/07/19 11/24/19 History cranberry 400 mg PO QAM 07/07/19 11/24/19 History amitriptyline 25 mg PO HS 07/12/19 11/24/19 History amlodipine 5 mg PO QAM 07/12/19 11/24/19 History esomeprazole magnesium [Nexium] 20 mg PO QAM 07/12/19 11/24/19 History latanoprost 1 drp OPL HS 07/12/19 11/24/19 History ondansetron HCl [Zofran] 4 mg PO Q6H PRN 07/12/19 11/24/19 History Ibrance 100 mg PO DAILY 10/01/19 11/24/19 History metoprolol tartrate 100 mg PO BID 10/01/19 11/24/19 History oxycodone-acetaminophen [Percocet] 1 tab PO Q8H PRN 10/01/19 11/24/19 History diphenhydramine-acetaminophen 1 tab PO HS PRN 11/24/19 11/24/19 History [Tylenol PM Extra Strength] Patient History Medical History Acute hypoxemic respiratory failure Anxiety Arthritis Atrial tachycardia Cataracts, bilateral CKD (chronic kidney disease), stage III DM type 2 (diabetes mellitus, type 2) Dyslipidemia Goals of care, counseling/discussion HTN (hypertension) HX: breast cancer Metastatic breast cancer Paroxysmal atrial fibrillation S/P admission to ICU (intensive care unit) Temporal arteritis Surgical History H/O right mastectomy Jun 2018 History of appendectomy History of cataract surgery S/P partial colectomy Jul 2019 S/P LIZBETH-BSO Family History Mother Diabetes Social History Preferred Language: Macedonian Communication Ability: Effective Cement Cutter Required: No Beliefs That Will Affect Care: None marital status: Current Living Situation: Spouse Current Living Situation Comment: lives with Feels Safe at Home: Yes Smoking Status: Never smoker Hx Alcohol Use: No Hx Substance Use: No Review of Systems Review of Systems: All systems reviewed & are unremarkable except as noted in HPI & below Physical Exam Physical Exam: Constitutional: No acute distress HEENT: EOMI, PERRLA Respiratory system: Decreased air entry on the right side, positive bilateral lower lobe crackles, no wheeze, no rhonchi CVS: S1-S2 positive, no murmurs or gallops Abdomen: Soft, nontender, nondistended, positive bowel sounds x4 Extremities: +2 pulses bilaterally radialis/ dorsalis pedis, no cyanosis, +1 edema bilateral lower extremity Neuro: Awake alert oriented x3 Psych: Normal mood and affect G/U: No Weber Status post right mastectomy Skin: no rashes, warm and dry Lymphatic: no cervical or axillary lymphadenopathy Results & Data Results & Data ([facility]) Vital Signs (Past 12 Hours) Vital Signs Temp Pulse Resp BP Pulse Ox 11/26/19 07:25 36.7 C 72 20 137/66 95 11/26/19 02:54 36.7 C 73 18 133/66 95 11/25/19 23:32 37 C 84 18 131/59 L 95 11/25/19 06:31 11/26/19 04:41 PG Care Time/CCT Total # of Minutes Spent Total Time Spent with Patient: Total time spent is greater than 50% in coordination of care (as documented) at patient's floor/unit and/or counseling patient: [place] [address] Initial Inpt Care Lvl 3 Patient Type New Diagnoses Pneumonia J18.9 Laterality: unspecified laterality Lung location: unspecified part of lung Pneumonia type: due to unspecified organism Pleural effusion J90 Breast cancer C50.919 Breast location: unspecified site of breast Estrogen receptor status: unspecified Laterality: unspecified laterality Patient sex: female H/O right mastectomy Z90.11
[2019-11-26] MEDS ORDERED: levoFLOXacin 750 MG TAB PO SCH (10:45)
[2019-11-26] MEDS: CEFEPIME 2,000 MG in SYRINGE 7.5 ML IV SCH (12:20)
--- NOTE | 2019-11-26 12:45 | Hospitalist Progress Note ---
Date of Service November 26, 2019 Assessment & Plan (1) Fever: RIGHT SIDED PNEUMONIA Pt is 84 y/o F with PMH metastatic breast cancer, temporal arteritis, paroxysmal atrial fibrillation, HTN, DM II, CKD III scented to ER with complaint of vomiting or diarrhea, fever. Patient states yesterday started with fever of 101.7F. Recent admission September 2019 annual October 2019 for neutropenic fever, right-sided pneumonia. Also started with nausea, vomiting x6 episodes, diarrhea x6 episodes. Denies any hematemesis, melena, hematochezia. In ER axillary T: 37.4 P: 89, R: 20, BP: 112/58, 97% on RA. WBC: 23, Neut #21, H/H: 8.4/24.9 (hgb: 8.4 on 11/20/19), Lactate: 1.4, Procalcitonin: 3.5, ESR: 35, CRP: 5.1. Negative influenza. Negative Covid 19 testing Received 1 dose of vancomycin and has been on intravenous cefepime, Flagyl for the last few days CT of the chest is showing multilobar infiltrate on the right middle and right lower lobe with associated tree-in-bud appearance. Appreciate pulmonary input and recommendation-no need for any bronchoscopy at this time MRSA screen has been negative Blood culture has been negative Will start oral Levaquin for atypical coverage and continue with Augmentin to finish a course of 10 days in total We will get repeat a CAT scan of the chest within 3 months (2) Nausea, vomiting and diarrhea: Possible Enteritis DDX: C-diff, infectious diarrhea Pt with vomiting and diarrhea since yesterday. Yesterday upper abdominal cramping which has resolved. CT Abd/Pelvis: Persistent small volume ascites with extensive infiltrative changes in the mesentery and omentum. This is nonspecific. Poor delineation of the bowel in the absence of intravenous and oral contrast. Postsurgical changes of the colon. Abnormal appearance of small bowel loops in the pelvis suggest enteritis. Ischemic bowel is not excluded. No gross evidence of perforation. Extensive consolidation in the right middle lobe and to a lesser extent the right lower lobe consistent with pneumonia. -C-diff: Negative stool studies: Negative so far Started on oral Augmentin (3) Hypomagnesemia: Magnesium: 1.7 -Replaced Mg now 2.3 (4) Fall: Had fall when trying to get out of bed while vomiting, slipped on rug and fell. Denies hitting head, LOC. Denies any injury or pain CT Head: no acute findings -Fall precautions PT and OT evaluation (5) Breast cancer: Metastatic breast cancer following with Dr. Toribio -Ibrance, Faslodex has been on hold per Dr. Toribio recommendations (6) Paroxysmal atrial fibrillation: Not on anticoagulation secondary to history of rectus sheath hematoma in 07/2019 Current sinus rhythm -Continue metoprolol (7) Hypertension: -continue Metoprolol and Amlodipine (8) DM type 2 (diabetes mellitus, type 2): A1c: 6.6 in 10/2019 -Hold Tradjenta -Basal bolus insulin per protocol (9) CKD (chronic kidney disease), stage III: Cr: 1.3, Cr was 1.1 on 11/20/19 -Monitor renal functions -Avoid nephrotoxic agents when possible DVT Prophylaxis -SCDs in light of history of rectus sheath hematoma DNR/DNI as per discussion with pt lives at home Follows with Dr Thompson for routine care Will discuss with the daughter and likely discharge this afternoon. Admission and Anticipated Discharge Date Admission Date: November 24, 2019 Subjective The patient was seen and examined in medical telemetry unit She has been feeling a lot better and denies any cough and/or shortness of breath She has been ambulating in the room and in the hallways without any problem Ready to be discharged Review of Systems Review of Systems: All systems reviewed and are unremarkable except as noted below Respiratory: no cough, no dyspnea and no dyspnea on exertion Physical Exam Physical Exam: Lying in bed comfortably Constitutional: well developed and well nourished; no acute distress and not ill appearing Eyes: PERRL, conjunctivae normal, anicteric sclerae ENMT: external ear and nose normal, oropharynx normal Neck: trachea midline, no thyromegaly Respiratory: normal respiratory effort; no respiratory distress Auscultation: + diminished lung sounds (Right lung) Cardiovascular: Rate/Rhythm: regular rate and regular rhythm Heart Sounds: no murmur Gastrointestinal (Abdomen): Inspection/Auscultation: abdomen normal to inspection and normal bowel sounds Musculoskeletal: No acute arthritis involving any joints Neurologic: moves all extremities; no focal motor deficits Lymphatic: no cervical or axillary lymphadenopathy Results & Data Results & [facility] ([facility]) Vital Signs (Past 12 Hours) Vital Signs Temp Pulse Resp BP Pulse Ox 05/13/20 11:15 36.5 C 80 18 156/73 H 95 11/26/19 07:25 36.7 C 72 20 137/66 95 11/26/19 02:54 36.7 C 73 18 133/66 95 Laboratory Results BMP 11/25/19 11/26/19 19:20 04:41 Potassium 3.5 Creatinine 1.09 Medications Administered Current Inpatient Medications Acetaminophen (Tylenol) 650 mg PO Q4H PRN PRN Reason: Pain or Fever Stop: 12/24/19 15:49 Last Admin: 11/26/19 00:34 Dose: 650 mg Documented by: Alprazolam (Xanax) 0.25 mg PO HS PRN PRN Reason: Anxiety Stop: 12/24/19 15:49 Amitriptyline HCl (Elavil) 25 mg PO HS [facility] Stop: 12/24/19 20:59 Last Admin: 11/25/19 19:19 Dose: 25 mg Documented by: Amoxicillin/Clavulanate Potassium (Augmentin 875mg) 1 tab PO BIDM [facility]; Protocol Stop: 12/03/19 16:59 Ascorbic Acid (Vitamin C) 500 mg PO [facility] Stop: 12/25/19 08:59 Last Admin: 11/26/19 08:58 Dose: 500 mg Documented by: Dextrose (Dextrose 50%) 25 - 50 ml IV UD PRN; Protocol PRN Reason: Hypoglycemia Protocol Stop: 12/24/19 15:49 Escitalopram Oxalate (Lexapro Tab) 10 mg PO [facility] Stop: 12/25/19 08:59 Last Admin: 11/26/19 08:57 Dose: 10 mg Documented by: Glucagon (Glucagen) 1 mg SQ UD PRN; Protocol PRN Reason: Hypoglycemia Protocol Stop: 12/24/19 15:49 Glucose (Dex4 Glucose) 4 - 8 tabs PO UD PRN; Protocol PRN Reason: Hypoglycemia Protocol Stop: 12/24/19 15:49 Glucose (Glucose 40%) 15 - 30 gm PO UD PRN; Protocol PRN Reason: Hypoglycemia Protocol Stop: 12/24/19 15:49 Insulin Aspart (Novolog Flexpen) 0 units SC [facility] Stop: 12/24/19 16:29 Last Admin: 11/26/19 12:20 Dose: Not Given Documented by: Insulin Glargine (Lantus Solostar Pen) 10 units SC BID [facility] Stop: 12/24/19 20:59 Last Admin: 11/26/19 09:01 Dose: 10 units Documented by: Latanoprost (Xalatan Oph) 1 drops OPL HS [facility] Stop: 12/24/19 20:59 Last Admin: 11/25/19 21:01 Dose: 1 drops Documented by: Levofloxacin (Levaquin) 750 mg PO ONE [facility] Stop: 12/03/19 10:44 Last Admin: 11/26/19 12:11 Dose: 750 mg Documented by: Loperamide HCl (Imodium) 2 mg PO UD PRN PRN Reason: Diarrhea Stop: 12/25/19 13:05 Last Admin: 11/25/19 18:13 Dose: 2 mg Documented by: Metoprolol Tartrate (Lopressor) 100 mg PO BID [facility] Stop: 12/24/19 20:59 Last Admin: 11/26/19 08:57 Dose: 100 mg Documented by: Miscellaneous (Carbohydrates For Hypoglycemia) 15 - 30 gm PO UD PRN PRN Reason: Hypoglycemia Protocol Stop: 12/24/19 15:49 Multivitamins (Multivitamin Tab) [facility] [place]: 12/25/19 08:59 Last Admin: 11/26/19 08:57 Dose: 1 tab Documented by: Multivitamins/Minerals (Caltrate Plus) 1 tab PO BID [facility] Stop: 12/24/19 20:59 Last Admin: 11/26/19 08:57 Dose: 1 tab Documented by: Ondansetron HCl (Zofran) 4 mg IV Q6H PRN PRN Reason: Nausea Stop: 12/24/19 15:49 Oxycodone/Acetaminophen (Percocet 5mg/325mg) 1 tab PO Q8H PRN PRN Reason: Pain Stop: 12/08/19 15:49 Pantoprazole Sodium (Protonix) 40 mg PO QAM [facility] Stop: 12/25/19 08:59 Last Admin: 11/26/19 08:58 Dose: 40 mg Documented by: Rosuvastatin Calcium (Crestor) 20 mg PO QAM [facility] Stop: 12/25/19 08:59 Last Admin: 11/26/19 09:31 Dose: 20 mg Documented by: (1) Fever Fever type: unspecified Qualified Code(s): R50.9 - Fever, unspecified (2) Fall Encounter type: initial encounter Qualified Code(s): W19.XXXA - Unspecified fall, initial encounter (3) Breast cancer Breast location: unspecified site of breast Estrogen receptor status: unspecified Laterality: unspecified laterality Patient sex: female Qualified Code(s): C50.919 - Malignant neoplasm of unspecified site of unspecified female breast
[2019-11-26 13:15] LABS: Basophils # (auto) 0.05 K/uL (0-0.2); Basophils % (auto) 0.5 %; Eosinophils # (auto) 0.38 K/uL (0-0.5); Eosinophils % (auto) 3.6 %; Hematocrit (blood only) 21.2 % (37-47); Hemoglobin 7.1 g/dL (12.0-16.0); Immature Granulocytes # (auto) 0.04 K/uL (0.00-0.02); Immature Granulocytes % (auto) 0.4 %; Lymphocytes # (auto) 0.88 K/uL (1.2-3.4); Lymphocytes % (auto) 8.3 %; Mean Corpuscular Hemoglobin 33.3 pg (25-34); Mean Corpuscular Hgb Conc 33.5 g/dL (32-36); Mean Corpuscular Volume 99.5 fL (80-100); Mean Platelet Volume 9.6 fL (7.4-10.4); Monocytes # (auto) 1.72 K/uL (0.11-0.59); Monocytes % (auto) 16.2 %; Neutrophils # (auto) 7.54 K/uL (1.4-6.5); Platelet Count 206 K/uL (130-400); RDW Coefficient of Variation 16.8 % (11.5-14.5); RDW Standard Deviation 61.8 fL (36.4-46.3); Red Blood Count 2.13 M/uL (4.2-5.4); White Blood Count 10.61 K/uL (4.8-10.8)
[2019-11-26 13:22] LABS: BUN Creatinine Ratio 14.2 (10-20); Calcium 8.2 mg/dl (8.5-10.1); Creatinine Clr Calc Pharmacy 33.5 ml/min; Est GFR (African American) 54.6; Est GFR (Non-African American) 47.1; Magnesium 2.1 mg/dl (1.8-2.4); Potassium 3.9 mmol/L (3.5-5.1)
[2019-11-26] MEDS ORDERED: AMOXICILLIN/CLAVULANATE 875 MG TAB PO ONE (13:29)
[2019-11-26 13:40] LABS: Ovalocytes 1+; Schistocytes 1+
[2019-11-26] MEDS ORDERED: AMOXICILLIN/CLAVULANATE 875 MG TAB PO SCH (17:00)
--- NOTE | 2019-11-27 08:12 | Discharge Summary ---
Date of Service November 27, 2019 Admission HPI Per Admitting Provider Pt is 84 y/o F with PMH metastatic breast cancer, temporal arteritis, paroxysmal atrial fibrillation, HTN, DM II, CKD III scented to ER with complaint of vomiting or diarrhea, fever. Patient states yesterday started with fever of 101.7F. Also started with nausea, vomiting x6 episodes, diarrhea x6 episodes. Denies any hematemesis, melena, hematochezia. Patient states yesterday had some aching/cramping discomfort upper abdomen however that has since resolved. Patient states always has dry cough and does not feel like her cough is increased. Denies any shortness of breath or chest pain. Patient reports chemo has been on hold for the past 3 weeks. Patient reports approximately 6 AM today she was trying to quickly get out of bed secondary to vomiting when she slipped on her rug at bedside and fell onto her back. Patient denies hitting head, denies LOC. She denies any neck pain, extremity pain other other known injury or discomfort. Reports chronic back pain and states this is at baseline. Patient with history of hospitalization 10/01/2019-10/04/2019 for neutropenic fever, right-sided pneumonia. Patient with history of hospitalization 11/10/2019-11/13/2019 for neutropenic fever, pneumonia and had negative cover testing at that time and was discharged on cefuroxime. Reports has otherwise been staying at home except for Dr appointments. No known Covid 19 exposures. Denies BRANTLEY, dizziness, syncope, vision changes, neck pain, CP, SOB, orthopnea, palpitations, hemoptysis, sore throat, choking, otalgia, rhinorrhea, paresthesias, extremity weakness, extremity edema, rashes, urinary symptoms. Admission Exam Per Admitting Provider Physical Exam: General: no acute distress, chronic ill appearing elderly female Head: normocephalic, atraumatic Eyes: PERRL, EOM's intact, conjunctiva non-injected, anicteric ENT: normal inspection external ears, nose, mucous membranes mildly dry Neck: supple, trachea midline, non-tender Lungs: clear, no respiratory distress, slightly diminished breath sounds RLL, otherwise no wheezing/rhonchi/rales or noted CV: RRR, no murmur, no JVD, no pretibial edema Abd: healed surgical scar mid abdomen, normal BS, soft, non-tender Ext: no cyanosis, no calf tenderness Neuro: A&O x 3, no focal deficits noted, normal affect Skin: warm, dry Principal Diagnosis Right-sided multilobar pneumonia, nonspecific enteritis, paroxysmal atrial fibrillation-currently in sinus rhythm, metastatic breast cancer Discharge Exam Constitutional well developed and well nourished; no acute distress and not ill appearing Eyes PERRL, conjunctivae normal, anicteric sclerae ENMT external ear and nose normal, oropharynx normal Neck trachea midline, no thyromegaly Respiratory normal respiratory effort; no respiratory distress Auscultation: + diminished lung sounds (Right lung) Cardiovascular Rate/Rhythm: regular rate and regular rhythm Heart Sounds: no murmur Gastrointestinal (Abdomen) Inspection/Auscultation: abdomen normal to inspection and normal bowel sounds Neurologic moves all extremities; no focal motor deficits Lymphatic no cervical or axillary lymphadenopathy Discharge Data Allergies Allergy/AdvReac Type Severity Reaction Status Date / Time Influenza Virus Vaccines Allergy Mild SWELLING Verified 11/24/19 10:26 Consultations 11/24/19 15:50 Consult Case Management - Discharge Planning Routine 11/24/19 17:13 Consult Infectious Diseases Routine 11/26/19 08:51 Consult Pulmonology Routine Ordered Studies 11/24/19 10:21 CT abd pelvis wo con Stat CT head/brain wo con Stat 11/25/19 10:15 CT chest wo con Routine 11/26/19 10:08 US point of care ultrasound Urgent Hospital Course (1) Fever: RIGHT SIDED PNEUMONIA Pt is 84 y/o F with PMH metastatic breast cancer, temporal arteritis, paroxysmal atrial fibrillation, HTN, DM II, CKD III scented to ER with complaint of v omiting or diarrhea, fever. Patient states yesterday started with fever of 101.7F. Recent admission September 2019 annual October 2019 for neutropenic fever, right-sided pneumonia. Also started with nausea, vomiting x6 episodes, diarrhea x6 episodes. Denies any hematemesis, melena, hematochezia. In ER axillary T: 37.4 P: 89, R: 20, BP: 112/58, 97% on RA. WBC: 23, Neut #21, H/H: 8.4/24.9 (hgb: 8.4 on 11/20/19), Lactate: 1.4, Procalcitonin: 3.5, ESR: 35, CRP: 5.1. Negative influenza. Negative Covid 19 testing Received 1 dose of vancomycin and has been on intravenous cefepime, Flagyl for the last few days CT of the chest is showing multilobar infiltrate on the right middle and right lower lobe with associated tree-in-bud appearance. Appreciate pulmonary input and recommendation-no need for any bronchoscopy at this time MRSA screen has been negative Blood culture has been negative Will start oral Levaquin for atypical coverage and continue with Augmentin to finish a course of 10 days in total We will get repeat a CAT scan of the chest within 3 months (2) Nausea, vomiting and diarrhea: Possible Enteritis DDX: C-diff, infectious diarrhea Pt with vomiting and diarrhea since yesterday. Yesterday upper abdominal cramping which has resolved. CT Abd/Pelvis: Persistent small volume ascites with extensive infiltrative changes in the mesentery and omentum. This is nonspecific. Poor delineation of the bowel in the absence of intravenous and oral contrast. Postsurgical changes of the colon. Abnormal appearance of small bowel loops in the pelvis suggest enteritis. Ischemic bowel is not excluded. No gross evidence of perforation. Extensive consolidation in the right middle lobe and to a lesser extent the right lower lobe consistent with pneumonia. -C-diff: Negative stool studies: Negative so far Started on oral Augmentin (3) Hypomagnesemia: Magnesium: 1.7 -Replaced Mg now 2.3 (4) Fall: Had fall when trying to get out of bed while vomiting, slipped on rug and fell. Denies hitting head, LOC. Denies any injury or pain CT Head: no acute findings -Fall precautions PT and OT evaluation (5) Breast cancer: Metastatic breast cancer following with Dr. Toribio -Sohail, Faslodex has been on hold per Dr. Toribio recommendations (6) Paroxysmal atrial fibrillation: Not on anticoagulation secondary to history of rectus sheath hematoma in 07/2019 Current sinus rhythm -Continue metoprolol (7) Hypertension: -continue Metoprolol and Amlodipine (8) DM type 2 (diabetes mellitus, type 2): A1c: 6.6 in 10/2019 -Hold Tradjenta -Basal bolus insulin per protocol (9) CKD (chronic kidney disease), stage III: Cr: 1.3, Cr was 1.1 on 11/20/19 -Monitor renal functions -Avoid nephrotoxic agents when possible DVT Prophylaxis -SCDs in light of history of rectus sheath hematoma DNR/DNI as per discussion with pt lives at home Follows with Dr Thompson for routine care Will discuss with the daughter and likely discharge this afternoon. Total Time Total Time Spent Total Time Spent (In Minutes): 35 minute Total Time Includes: Examination of the Patient, Discharge Planning, Medication Reconciliation and Communication With Other Providers Discharge Plan Discharge Items Patient Disposition: Home - Self-Care Reason For Visit: PNEUMONIA Discharge Diagnosis: Right-sided multilobar pneumonia, nonspecific enteritis, paroxysmal atrial fibrillation-currently in sinus rhythm, metastatic breast cancer Condition on Discharge: Good Activity: Resume your previous activity Non-emergency contact: Primary Care Provider Call non-emergency contact if: you have any medication questions and your symptoms worsen Follow-up/Referrals: Mana Thompson, [Primary Care Provider] - (Your doctor's office will call with an appointment within 1 week. Please have a CBC done at that time. You will need to have a follow-up CT scan of the chest in 3 months. ) Diet: Heart Healthy Addtl Attending Provider Instructions: Please take precaution to avoid falls Finish the course of antibiotic as prescribed Please get a complete blood count during your next appointment with PCP Schedule for a repeat CT scan of the chest within 3 months Pending Studies at Discharge: No Stand-Alone Forms: My [employer], Smoking Cessation Medications and DC Order Prescriptions: New levofloxacin 750 mg Tablet 750 mg PO DAILY 5 Days Qty: 5 RF: 0 amoxicillin-pot clavulanate [Augmentin] 875-125 mg Tablet 1 tab PO BIDM 7 Days Qty: 14 RF: 0 Lactinex 1 million cell tablet,chewable 1 tab PO TID Qty: 30 RF: 0 Continued multivitamin Tablet 1 tab PO QAM RF: 0 alprazolam [Xanax] 0.25 mg Tablet 0.25 mg PO HS PRN (Reason: Anxiety) RF: 0 ascorbic acid (vitamin C) [Vitamin C] 500 mg Tablet 500 mg PO QAM RF: 0 escitalopram oxalate [Lexapro] 10 mg Tablet 10 mg PO QAM RF: 0 rosuvastatin [Crestor] 20 mg Tablet 20 mg PO QAM RF: 0 calcium carbonate-vitamin D3 [Os-Arcadio 500 + D3] 500 mg(1,250mg) -200 unit Tablet 1 tab PO BID RF: 0 diphenhydramine-acetaminophen [Tylenol PM Extra Strength] 25-500 mg Tablet 1 tab PO HS PRN (Reason: Sleep and Pain) RF: 0 cranberry 400 mg Capsule 400 mg PO QAM RF: 0 Tradjenta 5 mg Tablet 5 mg PO QAM RF: 0 ondansetron HCl [Zofran] 4 mg Tablet 4 mg PO Q6H PRN (Reason: Nausea) RF: 0 latanoprost 0.005 % Drops 1 drp OPL HS RF: 0 amlodipine 5 mg Tablet 5 mg PO QAM RF: 0 amitriptyline 25 mg Tablet 25 mg PO HS RF: 0 esomeprazole magnesium [Nexium] 20 mg Capsule,Delayed Release(Dr/Ec) 20 mg PO QAM RF: 0 metoprolol tartrate 100 mg tablet 100 mg PO BID RF: 0 oxycodone-acetaminophen [Percocet] 5-325 mg Tablet 1 tab PO Q8H PRN (Reason: Pain) RF: 0 Ibrance 100 mg Capsule 100 mg PO DAILY RF: 0 Discharge Orders: Discharge Order (Routine); Ordered 11/26/19 Ordered By: Vera Banks Admission Data Admit Date/Time: 11/24/19 13:52 Attending Provider: Vera Banks Admit Provider: Bing Lowe Primary Care Provider: Mana Thompson Other Providers: Davina Keane ; Davian Wang ; Ezequiel López ; Janae Mix Other Interventions: Discharge Summary Assessment (RN) Last Done: 11/26/19 13:44 DC Date/Time DO NOT enter until pt leaves facility: 11/26/19 15:00
== END 2019-11-26 15:00 | disposition home or self-care (01) | DRG 194 ==
LOC: ED 09:41 → 2W 13:52 → SUATTDRO 13:52 → 2W 15:30

== ENCOUNTER 2019-12-08 13:45 | Inpatient (IN) ==
[2019-12-08] MEDS ORDERED: SODIUM CHLORIDE 0.9% 1000ML 1,000 ML IV ONE ×2 (15:05→20:40)
--- NOTE | 2019-12-08 16:01 | Emergency Department Note ---
History of Present Illness General Chief complaint: Vomiting Stated complaint: VOMITING,DIARRHEA Time Seen by Provider: 12/08/19 15:05 History of Present Illness Provider complaint: Nausea vomiting diarrhea Onset (ago): day(s) 3 Location: abdomen Radiation: non-radiation Maximum Pain Intensity: 0 Associated symptoms: + fever/chills (T-max 100.7) and + nausea/vomiting 84-year-old female presents emergency department for nausea vomiting diarrhea. Patient reports that her symptoms began 4 days ago. Patient also reports that she had a fever of 100.7 earlier today. Daughter is here with patient at bedside and reports that her abdomen appears more distended. No hematemesis coffee-ground emesis or bilious vomiting. No melena. No dysuria hematuria. Daughter at bedside states the patient has been admitted to the hospital multiple times over the last 6 months for pneumonia usually starts with GI symptoms such as nausea and vomiting. Patient just finished a course of amoxicillin as well as cephalosporin last week for pneumonia. Home Medications Home Medications Medication Instructions Recorded Confirmed Type alprazolam [Xanax] 0.25 mg PO HS PRN 03/28/18 12/08/19 History ascorbic acid (vitamin C) [Vitamin 500 mg PO QAM 03/28/18 12/08/19 History C] calcium carbonate-vitamin D3 1 tab PO BID 03/28/18 12/08/19 History [Os-Arcadio 500 + D3] escitalopram oxalate [Lexapro] 10 mg PO QAM 03/28/18 12/08/19 History multivitamin 1 tab PO QAM 03/28/18 12/08/19 History rosuvastatin [Crestor] 20 mg PO QAM 03/28/18 12/08/19 History Tradjenta 5 mg PO QAM 07/07/19 12/08/19 History cranberry 400 mg PO QAM 07/07/19 12/08/19 History amitriptyline 25 mg PO HS 07/12/19 12/08/19 History amlodipine 5 mg PO QAM 07/12/19 12/08/19 History esomeprazole magnesium [Nexium] 20 mg PO QAM 07/12/19 12/08/19 History latanoprost 1 drp OPL HS 07/12/19 12/08/19 History ondansetron HCl [Zofran] 4 mg PO Q6H PRN 07/12/19 12/08/19 History Ibrance 100 mg PO DAILY 10/01/19 12/08/19 History metoprolol tartrate 100 mg PO BID 10/01/19 12/08/19 History oxycodone-acetaminophen [Percocet] 1 tab PO Q8H PRN 10/01/19 12/08/19 History diphenhydramine-acetaminophen 1 tab PO HS PRN 11/24/19 12/08/19 History [Tylenol PM Extra Strength] Lactobacillus acidoph-L.bulgar 1 tab PO TID #30 tab 11/26/19 12/08/19 Rx [Lactinex] Allergies Allergy/AdvReac Type Severity Reaction Status Date / Time Influenza Virus Vaccines Allergy Mild SWELLING Verified 12/08/19 14:55 Past Med/Surg History Medical History Acute hypoxemic respiratory failure Anxiety Arthritis Atrial tachycardia Cataracts, bilateral CKD (chronic kidney disease), stage III DM type 2 (diabetes mellitus, type 2) Dyslipidemia Goals of care, counseling/discussion HTN (hypertension) HX: breast cancer Metastatic breast cancer Paroxysmal atrial fibrillation S/P admission to ICU (intensive care unit) Temporal arteritis Surgical History H/O right mastectomy Jun 2018 History of appendectomy History of cataract surgery S/P partial colectomy Jul 2019 S/P LIZBETH-BSO Family History Mother Diabetes Social History Preferred Language: Welsh Communication Ability: Effective Nursing Home Director Required: No Beliefs That Will Affect Care: None marital status: Current Living Situation: Spouse Current Living Situation Comment: lives with Feels Safe at Home: Yes Smoking Status: Never smoker Hx Alcohol Use: No Hx Substance Use: No Review of Systems A total of 10 systems reviewed and were otherwise negative Physical Exam Vital Signs Vital Signs - 24 hr 12/08/19 14:01 12/08/19 15:05 12/08/19 15:14 Temperature 36.8 C Temperature Source Oral Pulse Rate 78 76 Pulse Rate from SpO2 Sensor 76 Respiratory Rate 18 17 Respiratory Effort / Characteristics Non-Labored Spontaneous Respiratory Depth Normal Respiratory Pattern Regular Blood Pressure 96/61 L 116/56 L Blood Pressure Mean 72 81 Blood Pressure Position Sitting Pulse Oximetry 95 95 Oxygen Delivery Method Room Air Room Air Room Air Sepsis Recent Fever Within 48 Hours Yes Sepsis New/Unexplained Change in Mental Status No Sepsis Action Taken by Nursing No Action Required 12/08/19 16:00 12/08/19 16:30 12/08/19 17:00 Temperature Temperature Source Pulse Rate 76 78 77 Pulse Rate from SpO2 Sensor 76 78 77 Respiratory Rate 15 21 19 Respiratory Effort / Characteristics Respiratory Depth Respiratory Pattern Blood Pressure Blood Pressure Mean Blood Pressure Position Pulse Oximetry 91 93 92 Oxygen Delivery Method Room Air Sepsis Recent Fever Within 48 Hours Sepsis New/Unexplained Change in Mental Status Sepsis Action Taken by Nursing 12/08/19 17:30 12/08/19 17:47 12/08/19 18:00 Temperature Temperature Source Pulse Rate 78 78 78 Pulse Rate from SpO2 Sensor 78 78 Respiratory Rate 19 17 19 Respiratory Effort / Characteristics Respiratory Depth Respiratory Pattern Blood Pressure 130/59 L Blood Pressure Mean 97 Blood Pressure Position Pulse Oximetry 90 91 Oxygen Delivery Method Room Air Sepsis Recent Fever Within 48 Hours Sepsis New/Unexplained Change in Mental Status Sepsis Action Taken by Nursing 12/08/19 18:30 12/08/19 19:00 12/08/19 19:41 Temperature Temperature Source Pulse Rate 81 83 95 H Pulse Rate from SpO2 Sensor 81 84 Respiratory Rate 17 17 16 Respiratory Effort / Characteristics Respiratory Depth Respiratory Pattern Blood Pressure Blood Pressure Mean Blood Pressure Position Pulse Oximetry 91 94 Oxygen Delivery Method Room Air Sepsis Recent Fever Within 48 Hours Sepsis New/Unexplained Change in Mental Status Sepsis Action Taken by Nursing Physical Exam GENERAL: She is oriented to person, place, and time. She appears well-developed and well-nourished. She does not appear distressed. HENT: Exam performed. -Head: Normocephalic and atraumatic. -Right Ear: External ear normal. No mastoid tenderness. -Left Ear: External ear normal. No mastoid tenderness. -Mouth/Throat: The oropharynx is clear and moist. No trismus in the jaw. No dental abscesses or uvula swelling. No oropharyngeal exudate or tonsillar abscesses. EYES: Conjunctivae and EOM are normal. Pupils are equal, round, and reactive to light. Right eye exhibits no discharge. Left eye exhibits no discharge. No scleral icterus. NECK: Normal range of motion. Neck supple. No JVD present. No spinous process tenderness present. No carotid bruit present. No rigidity. No tracheal deviation and normal range of motion present. No Brudzinski's sign and no Kernig's sign noted. CV: Normal rate, regular rhythm, normal heart sounds and intact distal pulses. There is no peripheral edema. Palpable radial pulses bue. PULM/CHEST: Rhonchi bilaterally. -Chest Wall: She exhibits no tenderness. ABD: Abdomen is distended. Diffuse pain on palpation of the abdomen. MUSC/SKEL: Normal range of motion. There is no peripheral edema, tenderness or deformity. NEURO: She is alert and oriented to person, place, and time. Motor and sensation grossly intact. Course Course 151: The patient was evaluated in room C10. A complete history and physical exam was performed. EMR reviewed. Patient is on chemotherapy for breast cancer and is being treated by Dr. Ferraro. Patient has a history of pleural effusion, anemia, and bowel accident action. She is history of recurrent pneumonias. Patient has been tested twice for COVID-19 and tested negative both times since the pandemic began. Cardiac monitoring: An order was placed for continuous cardiac monitoring. The monitor shows a rate of 80 with sinus rhythm 2018: Vital signs stable. Patient's creatinine was elevated at 1.95. Given this creatinine, the patient was given oral contrast for CT. CT of the abdomen does show small bowel obstruction. There is also concern about local small bowel wall thickening the superior pelvis raising the concern for infectious versus inflammatory enteritis, intramural hematoma, post radiation change, or ischemic findings. It is very unlikely that the patient is having ischemic bowel given her lactic acid is within normal limits and there is no pneumatosis on CT. I did discuss the CT findings and read them verbatim to Dr. Felix who is comfortable with the patient be admitted and he stated he would be a consult and admit to medicine given her plethora of other medical problems including active breast cancer. I did discuss case with Dr. Nair [facility] hospitalist who agreed to the admission. Administered Medications Discontinued Medications Sodium Chloride (Nss 1000ml) 1,000 mls @ 999 mls/hr IV .Q1H1M ONE Stop: 12/08/19 16:05 Last Infusion: 12/08/19 19:24 Dose: 0 mls/hr Documented by: [id number] Admin: 12/08/19 17:42 Dose: 999 mls/hr Documented by: [id number] Ondansetron HCl (Zofran) 4 mg IV NOW STA Stop: 12/08/19 16:49 Last Admin: 12/08/19 17:42 Dose: 4 mg Documented by: [id number] Ondansetron HCl (Zofran) 4 mg IV NOW STA Stop: 12/08/19 16:59 Last Admin: 12/08/19 17:42 Dose: Not Given Documented by: [id number] Medical Decision Making Laboratory Data Result diagrams: 12/08/19 15:42 12/08/19 15:42 Lab Results 12/08/19 12/08/19 12/08/19 Range/Units 15:42 15:42 15:42 WBC 15.71 H (4.8-10.8) K/uL RBC 2.78 L (4.2-5.4) M/uL Hgb 8.8 L (12.0-16.0) g/dL Hct 27.5 L (37-47) % MCV 98.9 (80-100) fL MCH 31.7 (25-34) pg MCHC 32.0 (32-36) g/dL RDW Std Deviation 58.6 H (36.4-46.3) fL RDW Coeff of Jennifer 16.0 H (11.5-14.5) % Plt Count 319 (130-400) K/uL MPV 9.2 (7.4-10.4) fL Immature Gran % (Auto) 0.4 % Neut % (Auto) 82.1 % Lymph % (Auto) 7.2 % [place] % (Auto) 7.3 % Eos % (Auto) 2.8 % Baso % (Auto) 0.2 % Immature Gran # (Auto) 0.07 H (0.00-0.02) K/uL Neut # (Auto) 12.89 H (1.4-6.5) K/uL Lymph # (Auto) 1.13 L (1.2-3.4) K/uL [place] # (Auto) 1.15 H (0.11-0.59) K/uL Eos # (Auto) 0.44 (0-0.5) K/uL Baso # (Auto) 0.03 (0-0.2) K/uL PT 10.6 (9.0-12.0) Seconds INR 1.0 (0.9-1.1) APTT 24.2 (21.0-31.0) Seconds PTT Ratio 0.9 Sodium 132 L (136-145) mmol/L Potassium 4.7 (3.5-5.1) mmol/L Chloride 96 L (98-107) mmol/L Carbon Dioxide 30 (21-32) mmol/L Anion Gap 6.0 (3-11) BUN 35 H (7-18) mg/dl Creatinine 1.95 H (0.6-1.2) mg/dl Est Cr Clr Drug Dosing Not Reportable Est GFR ( Amer) 26.7 Est GFR (Non-Af Amer) 23.1 BUN/Creatinine Ratio 17.9 (10-20) Glucose 110 H (70-99) mg/dl Lactate (0.4-2.0) mmol/L Calcium 9.0 (8.5-10.1) mg/dl Magnesium 2.4 (1.8-2.4) mg/dl Total Bilirubin 0.4 (0.2-1) mg/dl AST 35 (15-37) U/L ALT 21 (12-78) U/L Alkaline Phosphatase 81 (45-117) U/L Troponin I < 0.015 (0-0.045) ng/ml Total Protein 7.2 (6.4-8.2) gm/dl Albumin 3.1 L (3.4-5.0) gm/dl Globulin 4.1 H (2.5-4.0) gm/dl Albumin/Globulin Ratio 0.8 L (0.9-2) Lipase 54 L (73-393) U/L Procalcitonin (0-0.5) ng/ml Specimen Hemolysis Urine Color Urine Appearance (Clear) Urine pH (4.5-7.5) Ur Specific Bryant (1.000-1.030) Urine Protein (Negative) Urine Glucose (UA) (Negative) Urine Ketones (Negative) Urine Blood (Negative) Urine Nitrite (Negative) Urine Bilirubin (Negative) Urine Urobilinogen (Negative) Ur Leukocyte Esterase (Negative) Urine WBC (Auto) (0-5) /hpf Urine RBC (Auto) (0-4) /hpf U Hyaline Cast (Auto) (0-5) /lpf U Epithel Cells (Auto) (0-5) /lpf Urine Bacteria (Auto) (Negative) Adenovirus (PCR) (NotDetected) B. pertussis DNA (PCR) (NotDetected) B.parapertussis DNA PCR (NotDetected) C. pneumoniae DNA (PCR) (NotDetected) Coronavirus OC43 (PCR) (NotDetected) Coronavirus HKU1 (PCR) (NotDetected) Coronavirus 229E (PCR) (NotDetected) Coronavirus NL63 (PCR) (NotDetected) Human Metapneumovir PCR (NotDetected) Influenza Type A (PCR) (NotDetected) Influenza Type B (PCR) (NotDetected) M. pneumoniae (PCR) (NotDetected) Parainfluenza 1 (PCR) (NotDetected) Parainfluenza 2 (PCR) (NotDetected) Parainfluenza 3 (PCR) (NotDetected) Parainfluenza 4 (PCR) (NotDetected) RSV (PCR) (NotDetected) Entero/Rhino (PCR) (NotDetected) 12/08/19 12/08/19 12/08/19 Range/Units 15:42 15:42 17:10 WBC (4.8-10.8) K/uL RBC (4.2-5.4) M/uL Hgb (12.0-16.0) g/dL Hct (37-47) % MCV (80-100) fL MCH (25-34) pg MCHC (32-36) g/dL RDW Std Deviation (36.4-46.3) fL RDW Coeff of Jennifer (11.5-14.5) % Plt Count (130-400) K/uL MPV (7.4-10.4) fL Immature Gran % (Auto) % Neut % (Auto) % Lymph % (Auto) % [place] % (Auto) % Eos % (Auto) % Baso % (Auto) % Immature Gran # (Auto) (0.00-0.02) K/uL Neut # (Auto) (1.4-6.5) K/uL Lymph # (Auto) (1.2-3.4) K/uL [place] # (Auto) (0.11-0.59) K/uL Eos # (Auto) (0-0.5) K/uL Baso # (Auto) (0-0.2) K/uL PT (9.0-12.0) Seconds INR (0.9-1.1) APTT (21.0-31.0) Seconds PTT Ratio Sodium (136-145) mmol/L Potassium (3.5-5.1) mmol/L Chloride (98-107) mmol/L Carbon Dioxide (21-32) mmol/L Anion Gap (3-11) BUN (7-18) mg/dl Creatinine (0.6-1.2) mg/dl Est Cr Clr Drug Dosing Est GFR ( Amer) Est GFR (Non-Af Amer) BUN/Creatinine Ratio (10-20) Glucose (70-99) mg/dl Lactate 1.0 (0.4-2.0) mmol/L Calcium (8.5-10.1) mg/dl Magnesium (1.8-2.4) mg/dl Total Bilirubin (0.2-1) mg/dl AST (15-37) U/L ALT (12-78) U/L Alkaline Phosphatase (45-117) U/L Troponin I (0-0.045) ng/ml Total Protein (6.4-8.2) gm/dl Albumin (3.4-5.0) gm/dl Globulin (2.5-4.0) gm/dl Albumin/Globulin Ratio (0.9-2) Lipase (73-393) U/L Procalcitonin 0.28 (0-0.5) ng/ml Specimen Hemolysis Urine Color Urine Appearance (Clear) Urine pH (4.5-7.5) Ur Specific Bryant (1.000-1.030) Urine Protein (Negative) Urine Glucose (UA) (Negative) Urine Ketones (Negative) Urine Blood (Negative) Urine Nitrite (Negative) Urine Bilirubin (Negative) Urine Urobilinogen (Negative) Ur Leukocyte Esterase (Negative) Urine WBC (Auto) (0-5) /hpf Urine RBC (Auto) (0-4) /hpf U Hyaline Cast (Auto) (0-5) /lpf U Epithel Cells (Auto) (0-5) /lpf Urine Bacteria (Auto) (Negative) Adenovirus (PCR) Not Detected (NotDetected) B. pertussis DNA (PCR) Not Detected (NotDetected) B.parapertussis DNA PCR Not Detected (NotDetected) C. pneumoniae DNA (PCR) Not Detected (NotDetected) Coronavirus OC43 (PCR) Not Detected (NotDetected) Coronavirus HKU1 (PCR) Not Detected (NotDetected) Coronavirus 229E (PCR) Not Detected (NotDetected) Coronavirus NL63 (PCR) Not Detected (NotDetected) Human Metapneumovir PCR Not Detected (NotDetected) Influenza Type A (PCR) Not Detected (NotDetected) Influenza Type B (PCR) Not Detected (NotDetected) M. pneumoniae (PCR) Not Detected (NotDetected) Parainfluenza 1 (PCR) Not Detected (NotDetected) Parainfluenza 2 (PCR) Not Detected (NotDetected) Parainfluenza 3 (PCR) Not Detected (NotDetected) Parainfluenza 4 (PCR) Not Detected (NotDetected) RSV (PCR) Not Detected (NotDetected) Entero/Rhino (PCR) Not Detected (NotDetected) 12/08/19 Range/Units 18:45 WBC (4.8-10.8) K/uL RBC (4.2-5.4) M/uL Hgb (12.0-16.0) g/dL Hct (37-47) % MCV (80-100) fL MCH (25-34) pg MCHC (32-36) g/dL RDW Std Deviation (36.4-46.3) fL RDW Coeff of Jennifer (11.5-14.5) % Plt Count (130-400) K/uL MPV (7.4-10.4) fL Immature Gran % (Auto) % Neut % (Auto) % Lymph % (Auto) % [place] % (Auto) % Eos % (Auto) % Baso % (Auto) % Immature Gran # (Auto) (0.00-0.02) K/uL Neut # (Auto) (1.4-6.5) K/uL Lymph # (Auto) (1.2-3.4) K/uL [place] # (Auto) (0.11-0.59) K/uL Eos # (Auto) (0-0.5) K/uL Baso # (Auto) (0-0.2) K/uL PT (9.0-12.0) Seconds INR (0.9-1.1) APTT (21.0-31.0) Seconds PTT Ratio Sodium (136-145) mmol/L Potassium (3.5-5.1) mmol/L Chloride (98-107) mmol/L Carbon Dioxide (21-32) mmol/L Anion Gap (3-11) BUN (7-18) mg/dl Creatinine (0.6-1.2) mg/dl Est Cr Clr Drug Dosing Est GFR ( Amer) Est GFR (Non-Af Amer) BUN/Creatinine Ratio (10-20) Glucose (70-99) mg/dl Lactate (0.4-2.0) mmol/L Calcium (8.5-10.1) mg/dl Magnesium (1.8-2.4) mg/dl Total Bilirubin (0.2-1) mg/dl AST (15-37) U/L ALT (12-78) U/L Alkaline Phosphatase (45-117) U/L Troponin I (0-0.045) ng/ml Total Protein (6.4-8.2) gm/dl Albumin (3.4-5.0) gm/dl Globulin (2.5-4.0) gm/dl Albumin/Globulin Ratio (0.9-2) Lipase (73-393) U/L Procalcitonin (0-0.5) ng/ml Specimen Hemolysis Urine Color Dark Yellow Urine Appearance Cloudy A (Clear) Urine pH 5.0 (4.5-7.5) Ur Specific Bryant 1.020 (1.000-1.030) Urine Protein Trace H (Negative) Urine Glucose (UA) Negative (Negative) Urine Ketones 1+ H (Negative) Urine Blood Negative (Negative) Urine Nitrite Negative (Negative) Urine Bilirubin Negative (Negative) Urine Urobilinogen Negative (Negative) Ur Leukocyte Esterase Negative (Negative) Urine WBC (Auto) 1-5 (0-5) /hpf Urine RBC (Auto) 0-4 (0-4) /hpf U Hyaline Cast (Auto) 1-5 (0-5) /lpf U Epithel Cells (Auto) >30 H (0-5) /lpf Urine Bacteria (Auto) Negative (Negative) Adenovirus (PCR) (NotDetected) B. pertussis DNA (PCR) (NotDetected) B.parapertussis DNA PCR (NotDetected) C. pneumoniae DNA (PCR) (NotDetected) Coronavirus OC43 (PCR) (NotDetected) Coronavirus HKU1 (PCR) (NotDetected) Coronavirus 229E (PCR) (NotDetected) Coronavirus NL63 (PCR) (NotDetected) Human Metapneumovir PCR (NotDetected) Influenza Type A (PCR) (NotDetected) Influenza Type B (PCR) (NotDetected) M. pneumoniae (PCR) (NotDetected) Parainfluenza 1 (PCR) (NotDetected) Parainfluenza 2 (PCR) (NotDetected) Parainfluenza 3 (PCR) (NotDetected) Parainfluenza 4 (PCR) (NotDetected) RSV (PCR) (NotDetected) Entero/Rhino (PCR) (NotDetected) Imaging Data Radiologist's Impression: CT abd pelvis oral con only CLINICAL HISTORY: 84 years-old Female presenting with fever abd pain ro sbo. TECHNIQUE: Multidetector CT of the abdomen and pelvis was performed after the administration of oral contrast only. IV contrast: None. One or more dose lowering techniques were used consistent with the principles of ALARA (as low as reasonably achievable), including automatic exposure control, mA or kV adjustment to individual patient size, and/or use of iterative reconstruction. COMPARISON: 11/24/2019. CT DOSE (mGy.cm): The estimated cumulative dose is 656.90 mGycm. FINDINGS: [employer] topogram: Unremarkable. Lung bases: Normal heart size. Small to moderate right pleural effusion significantly increased from prior. Minimal peribronchovascular infiltrates in the posterior basal right lower lobe. Decreased consolidation in the lateral segment of the right middle lobe. Dependent consolidation in the right lower lobe likely in part reflects extensive passive atelectasis in the setting of the effusion. Minimal atelectasis in the dependent left lower lobe. Liver: Normal morphology. Normal density. Biliary: No gross biliary ductal dilatation allowing for noncontrast technique. Layering high density in the gallbladder may represent inspissated bile or g allbladder sludge. No gross evidence of gallbladder wall thickening. Pancreas: Moderate parenchymal atrophy. Spleen: Normal noncontrast appearance. Adrenal glands: Normal noncontrast appearance. Kidneys and ureters: Cortical thinning of the right kidney with severe right pelvocaliectasis. 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 No nephrolithiasis. Mild left pelvocaliectasis slightly increased from prior exam. Left ureter nondi stended. Prominent cysts noted in the posterior interpolar left kidney. Bladder: Incompletely evaluated secondary to underdistention. Pelvic organs: Uterus surgically absent. Bowel: Diverticulosis of the sigmoid colon without focal wall thickening or pericolonic inflammatory change. Minimal diffuse wall thickening of the colon may be present to the level of the cecum. The appendix is not delineated. The terminal ileum is decompressed. Oral contrast has been diluted likely due to fluid-filled loops of small bowel. Contrast has not yet reached the distal ileum. Interval increase in distention of small bowel loops. Smooth transition of dilated bowel upstream. Small bowel measures up to 3.7 cm in diameter there is a nearly smooth transition to a less dilated caliber downstream. Marked small bowel wall thickening in the superior pelvis. The bowel wall is heterogeneous in density. The thickened loop of bowel extends approximately 15 to 20 cm in length. Beyond this bowel is decompressed. The degree of bowel wall thickening is worsened from prior. No pneumatosis. Wall thickening of the gastric antrum and mild wall thickening of the duodenum. Peritoneal cavity: No free intraperitoneal gas. Interval increase in small volume ascites in the abdomen and pelvis. Infiltrative changes in the mesentery and omentum. Some infiltrative change is rather nodular in appearance especially in the left upper quadrant. A suture margin is noted in the left upper quadrant. Lymph nodes: No gross lymphadenopathy allowing for noncontrast technique. Vasculature: Atherosclerosis of the normal caliber abdominal aorta. Abdominal wall: Postsurgical changes of the anterior abdominal wall with several prior port site suspected. Right mastectomy also suspected. Musculoskeletal: Degenerative changes of the spine. No destructive osseous lesion. IMPRESSION: 1. Significant interval worsening of local small bowel wall thickening in a loop of small bowel in the superior pelvis. The appearance is nonspecific and could raise concern for focal severe infectious or inflammatory enteritis, intramural hematoma, post radiation change, or focal angioedema among other etiologies. An ischemic etiology is not excluded though no pneumatosis is evident and the focal distribution may argue against this diagnosis. No perforation. 2. Resulting high-grade partial or complete small bowel obstruction. 3. Nodular infiltration of the omentum and peritoneum especially in the left upper quadrant. It is difficult to exclude peritoneal metastatic disease or peritonitis. Correlate with the patient's oncologic history. Follow-up is warranted. 4. 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 Chronic right renal atrophy. 5. Volume overload may be indicated by the ascites versus a reactive etiology. 6. Decreased right middle lobe consolidation with increased right basilar atelectasis in the setting of effusion. ACT 112: Negative or not required by law. Electronically signed by: Kedar Larson M.D. 12/08/2019 7:57 PM Dictated: 12/08/191943 Transcribed: 12/08/191943 XR chest 1V portable CLINICAL HISTORY: 84 years-old Female presenting with SEPSIS. TECHNIQUE: Portable upright AP view of the chest was obtained. COMPARISON: 11/24/2019. FINDINGS: Atherosclerosis of the aortic arch. Cardiac silhouette normal in size. Mildly low lung volumes. Interval decreased patchy opacities in the right midlung. Trace right pleural effusion may be present. No new focal opacity. No pneumothorax. Degenerative changes of the thoracic spine. Upper abdomen normal. IMPRESSION: 1. Essential resolution of prior right mid lung infiltrates. 2. Trace right pleural effusion or pleural thickening. ACT 112: Negative or not required by law. Electronically signed by: Kedar Larson M.D. 12/08/2019 4:17 PM Dictated: 12/08/19 1616 Transcribed: 12/08/19 1616 ECG Data Indication: + abdominal pain Rate (beats per minute): 77 Rhythm: + normal sinus ECG Intervals/blocks: + Normal QRS, + Normal SC and + Normal QT-c ECG ST segments: + Normal ST segments [facility] Narrative 1515: The patient was evaluated in room C10. A complete history and physical exam was performed. EMR reviewed. Patient is on chemotherapy for breast cancer and is being treated by Dr. Ferraro. Patient has a history of pleural effusion, anemia, and bowel accident action. She is history of recurrent pneumonias. Patient has been tested twice for COVID-19 and tested negative both times since the pandemic began. Cardiac monitoring: An order was placed for continuous cardiac monitoring. The monitor shows a rate of 80 with sinus rhythm 2018: Vital signs stable. Patient's creatinine was elevated at 1.95. Given this creatinine, the patient was given oral contrast for CT. CT of the abdomen does show small bowel obstruction. There is also concern about local small bowel wall thickening the superior pelvis raising the concern for infectious versus inflammatory enteritis, intramural hematoma, post radiation change, or ischemic findings. It is very unlikely that the patient is having ischemic bowel given her lactic acid is within normal limits and there is no pneumatosis on CT. I did discuss the CT findings and read them verbatim to Dr. Felix who is comfortable with the patient be admitted and he stated he would be a consult and admit to medicine given her plethora of other medical problems including active breast cancer. I did discuss case with Dr. Nair [facility] hospitalist who agreed to the admission. Impression & Plan Small bowel obstruction Discharge Plan Visit Data Chief Complaint: Vomiting Stated Complaint: VOMITING,DIARRHEA ED Provider: Jonathan Mcdonough Discharge Problem: Small bowel obstruction Patient Disposition: Admitted As Inpatient Forms Stand Alone Forms: [facility] Prescriptions Prescriptions: No Action multivitamin Tablet 1 tab PO QAM RF: 0 alprazolam [Xanax] 0.25 mg Tablet 0.25 mg PO HS PRN (Reason: Anxiety) RF: 0 ascorbic acid (vitamin C) [Vitamin C] 500 mg Tablet 500 mg PO QAM RF: 0 escitalopram oxalate [Lexapro] 10 mg Tablet 10 mg PO QAM RF: 0 rosuvastatin [Crestor] 20 mg Tablet 20 mg PO QAM RF: 0 calcium carbonate-vitamin D3 [Os-Arcadio 500 + D3] 500 mg(1,250mg) -200 unit Tablet 1 tab PO BID RF: 0 diphenhydramine-acetaminophen [Tylenol PM Extra Strength] 25-500 mg Tablet 1 tab PO HS PRN (Reason: Sleep and Pain) RF: 0 Lactinex 1 million cell tablet,chewable 1 tab PO TID Qty: 30 RF: 0 cranberry 400 mg Capsule 400 mg PO QAM RF: 0 Tradjenta 5 mg Tablet 5 mg PO QAM RF: 0 ondansetron HCl [Zofran] 4 mg Tablet 4 mg PO Q6H PRN (Reason: Nausea) RF: 0 latanoprost 0.005 % Drops 1 drp OPL HS RF: 0 amlodipine 5 mg Tablet 5 mg PO QAM RF: 0 amitriptyline 25 mg Tablet 25 mg PO HS RF: 0 esomeprazole magnesium [Nexium] 20 mg Capsule,Delayed Release(Dr/Ec) 20 mg PO QAM RF: 0 metoprolol tartrate 100 mg tablet 100 mg PO BID RF: 0 oxycodone-acetaminophen [Percocet] 5-325 mg Tablet 1 tab PO Q8H PRN (Reason: Pain) RF: 0 Ibrance 100 mg Capsule 100 mg PO DAILY RF: 0 Referrals Referrals: Mana Thompson, [Primary Care Provider] -
[2019-12-08 16:06] LABS: Basophils # (auto) 0.03 K/uL (0-0.2); Basophils % (auto) 0.2 %; Eosinophils # (auto) 0.44 K/uL (0-0.5); Eosinophils % (auto) 2.8 %; Hematocrit (blood only) 27.5 % (37-47); Hemoglobin 8.8 g/dL (12.0-16.0); Immature Granulocytes # (auto) 0.07 K/uL (0.00-0.02); Immature Granulocytes % (auto) 0.4 %; Lymphocytes # (auto) 1.13 K/uL (1.2-3.4); Lymphocytes % (auto) 7.2 %; Mean Corpuscular Hemoglobin 31.7 pg (25-34); Mean Corpuscular Volume 98.9 fL (80-100); Mean Platelet Volume 9.2 fL (7.4-10.4); Monocytes # (auto) 1.15 K/uL (0.11-0.59); Monocytes % (auto) 7.3 %; Neutrophils # (auto) 12.89 K/uL (1.4-6.5); Neutrophils % (auto) 82.1 %; Platelet Count 319 K/uL (130-400); RDW Standard Deviation 58.6 fL (36.4-46.3); Red Blood Count 2.78 M/uL (4.2-5.4); White Blood Count 15.71 K/uL (4.8-10.8)
[2019-12-08 16:15] LABS: Partial Thromboplastin Ratio 0.9; Partial Thromboplastin Time 24.2 Seconds (21.0-31.0); Prothrombin Time 10.6 Seconds (9.0-12.0)
--- NOTE | 2019-12-08 16:19 | XRay Report ---
XR chest 1V portable CLINICAL HISTORY: 84 years-old Female presenting with SEPSIS. TECHNIQUE: Portable upright AP view of the chest was obtained. COMPARISON: 11/24/2019. FINDINGS: Atherosclerosis of the aortic arch. Cardiac silhouette normal in size. Mildly low lung volumes. Inter nestor decreased patchy opacities in the right midlung. Trace right pleural effusion may be present. No new focal opacity. No pneumothorax. Degenerative changes of the thoracic spine. Upper abdomen normal. IMPRESSION: 1. Essential resolution of prior right mid lung infiltrates. 2. Trace right pleural effusion or pleural thickening. ACT 112: Negative or not required by law. Electronically signed by: Kedar Larson M.D. 12/08/2019 4:17 PM
[2019-12-08 16:24] LABS: Alanine Aminotransferase 21 U/L (12-78); Albumin Level 3.1 gm/dl (3.4-5.0); Aspartate Aminotransferase 35 U/L (15-37); BUN Creatinine Ratio 17.9 (10-20); Blood Urea Nitrogen 35 mg/dl (7-18); Carbon Dioxide 30 mmol/L (21-32); Chloride 96 mmol/L (98-107); Est GFR (African American) 26.7; Est GFR (Non-African American) 23.1; Glucose 110 mg/dl (70-99); Lipase 54 U/L (73-393); Magnesium 2.4 mg/dl (1.8-2.4); Potassium 4.7 mmol/L (3.5-5.1); Sodium 132 mmol/L (136-145)
[2019-12-08 16:33] LABS: Albumin Globulin Ratio 0.8 (0.9-2); Alkaline Phosphatase 81 U/L (45-117); Bilirubin,Total 0.4 mg/dl (0.2-1); Globulin 4.1 gm/dl (2.5-4.0); Total Protein 7.2 gm/dl (6.4-8.2); Troponin I < 0.015 ng/ml (0-0.045)
[2019-12-08] MEDS ORDERED: ONDANSETRON INJ 2 MG/ML 2 ML VIAL IV STA ×2 (16:48→16:58)
[2019-12-08 18:55] LABS: Adenovirus PCR Not Detected (NotDetected); Bordetella parapertussis PCR Not Detected (NotDetected); Bordetella pertussis PCR Not Detected (NotDetected); Chlamydia pneumoniae PCR Not Detected (NotDetected); Coronavirus 229E PCR Not Detected (NotDetected); Coronavirus HKU1 PCR Not Detected (NotDetected); Coronavirus NL63 PCR Not Detected (NotDetected); Coronavirus OC43PCR Not Detected (NotDetected); Human Metapneumovirus PCR Not Detected (NotDetected); Influenza A PCR Not Detected (NotDetected); Influenza B PCR Not Detected (NotDetected); Mycoplasma pneumoniae PCR Not Detected (NotDetected); Parainfluenza Virus 1 PCR Not Detected (NotDetected); Parainfluenza Virus 2 PCR Not Detected (NotDetected); Parainfluenza Virus 3 PCR Not Detected (NotDetected); Parainfluenza Virus 4 PCR Not Detected (NotDetected); Respiratory Syncytial VirusPCR Not Detected (NotDetected); Rhinovirus/Enterovirus PCR Not Detected (NotDetected)
[2019-12-08 18:56] LABS: Appearance Urine Cloudy (Clear); Bacteria Urine Automated Negative (Negative); Bilirubin Urine Negative (Negative); Blood Urine Negative (Negative); Color Urine Dark Yellow; Epithelial Cell Urine Auto >30 /lpf (0-5); Glucose Urine UA Negative (Negative); Ketones Urine 1+ (Negative); Leukocyte Esterase Urine Negative (Negative); Nitrite Urine Negative (Negative); Protein Urine Trace (Negative); RBC Urine Automated 0-4 /hpf (0-4); Urobilinogen Urine Negative (Negative)
--- NOTE | 2019-12-08 19:58 | CT Scan Report ---
CT abd pelvis oral con only CLINICAL HISTORY: 84 years-old Female presenting with fever abd pain ro sbo. TECHNIQUE: Multidetector CT of the abdomen and pelvis was performed after the administration of oral contrast only. IV contrast: None. One or more dose lowering techniques were used consistent with the principles of ALARA (as low as reasonably achievable), including automatic exposure control, mA or kV adjustment to individual patient size, and/or use of iterative reconstruction. COMPARISON: 11/24/2019. CT DOSE (mGy.cm): The estimated cumulative dose is 656.90 mGycm. FINDINGS: Elevator Installer topogram: Unremarkable. Lung bases: Normal heart size. Small to moderate right pleural effusion significantly increased from prior. Minimal peribronchovascular infiltrates in the posterior basal right lower lobe. Decreased con solidation in the lateral segment of the right middle lobe. Dependent consolidation in the right lowe r lobe likely in part reflects extensive passive atelectasis in the setting of the effusion. Minimal atelectasis in the dependent left lower lobe. Liver: Normal morphology. Normal density. Biliary: No gross biliary ductal dilatation allowing for noncontrast technique. Layering high density in the gallbladder may represent inspissated bile or gallbladder sludge. No gross evidence of gallbl adder wall thickening. Pancreas: Moderate parenchymal atrophy. Spleen: Normal noncontrast appearance. Adrenal glands: Normal noncontrast appearance. Kidneys and ureters: Cortical thinning of the right kidney with severe right pelvocaliectasis. Nondis tention of the right ureter suggesting right ureteropelvic junction obstruction on a chronic basis. N o nephrolithiasis. Mild left pelvocaliectasis slightly increased from prior exam. Left ureter nondist ended. Prominent cysts noted in the posterior interpolar left kidney. Bladder: Incompletely evaluated secondary to underdistention. Pelvic organs: Uterus surgically absent. Bowel: Diverticulosis of the sigmoid colon without focal wall thickening or pericolonic inflammatory change. Minimal diffuse wall thickening of the colon may be present to the level of the cecum. The ap pendix is not delineated. The terminal ileum is decompressed. Oral contrast has been diluted likely d ue to fluid-filled loops of small bowel. Contrast has not yet reached the distal ileum. Interval incr ease in distention of small bowel loops. Smooth transition of dilated bowel upstream. Small bowel nilay sures up to 3.7 cm in diameter there is a nearly smooth transition to a less dilated caliber downstre am. Marked small bowel wall thickening in the superior pelvis. The bowel wall is heterogeneous in den sity. The thickened loop of bowel extends approximately 15 to 20 cm in length. Beyond this bowel is d ecompressed. The degree of bowel wall thickening is worsened from prior. No pneumatosis. Wall thicken ing of the gastric antrum and mild wall thickening of the duodenum. Peritoneal cavity: No free intraperitoneal gas. Interval increase in small volume ascites in the abdo men and pelvis. Infiltrative changes in the mesentery and omentum. Some infiltrative change is rather nodular in appearance especially in the left upper quadrant. A suture margin is noted in the left up per quadrant. Lymph nodes: No gross lymphadenopathy allowing for noncontrast technique. Vasculature: Atherosclerosis of the normal caliber abdominal aorta. Abdominal wall: Postsurgical changes of the anterior abdominal wall with several prior port site susp ected. Right mastectomy also suspected. Musculoskeletal: Degenerative changes of the spine. No destructive osseous lesion. IMPRESSION: 1. Significant interval worsening of local small bowel wall thickening in a loop of small bowel in t he superior pelvis. The appearance is nonspecific and could raise concern for focal severe infectious or inflammatory enteritis, intramural hematoma, post radiation change, or focal angioedema among oth er etiologies. An ischemic etiology is not excluded though no pneumatosis is evident and the focal di stribution may argue against this diagnosis. No perforation. 2. Resulting high-grade partial or complete small bowel obstruction. 3. Nodular infiltration of the omentum and peritoneum especially in the left upper quadrant. It is d ifficult to exclude peritoneal metastatic disease or peritonitis. Correlate with the patient's oncolo gic history. Follow-up is warranted. 4. 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 Chronic right r enal atrophy. 5. Volume overload may be indicated by the ascites versus a reactive etiology. 6. Decreased right middle lobe consolidation with increased right basilar atelectasis in the setting of effusion. ACT 112: Negative or not required by law. Electronically signed by: Kedar Larson M.D. 12/08/2019 7:57 PM
[2019-12-08] MEDS ORDERED: ACETAMINOPHEN 1,000 MG/100 ML VIAL IV STA (21:13)
--- NOTE | 2019-12-08 21:14 | History & Physical Report ---
Date of Service December 08, 2019 Assessment & Plan (1) SBO (small bowel obstruction): ? Secondary to peritoneal mets hx metastatic breast cancer status post surgery, radiation (chemotherapy currently on hold) Postobstructive diarrhea rule out C. difficile given recent confinement/antibiotic Rx ARF secondary to illness Obstructive uropathy on CT possibly contributory PAF, patient NSR off anticoagulation secondary to history of rectus sheath hematoma hypertension, stable for now hyperlipidemia on statin Rx DM 2 insulin requiring, well-controlled as of recent hemoglobin A1c of 6.20 October 2019 temporal arthritis as per records chronic anemia, hemoglobin at baseline Medical telemetry to facilitate for IV beta-moni administration with ongoing bowel issues NGT decompression Surgery consult Re: SBO (Patient known to Dr. Andino. ER provider already in touch with Dr. Felix.) Stool C. difficile Monitor creatinine response to IVF Urology consult in a.m. if no improvement in renal function Re: Obstructive uropathy on CT Basal insulin, ISS BG goal [id number] DVT prophylaxis with Heparin subcu DNR Text document was generated using [employer] voice recognition software. It may contain grammatical or spelling errors. Kindly contact undersigned for clarification of any documentation item in question. History of Present Illness Chief Complaint: Abdominal pain Primary Care Provider: Mana Thompson DO History obtained from patient and records. Medical history significant for metastatic breast cancer status post surgery, radiation (chemotherapy currently on hold), PAF (off anticoagulation secondary to history of rectus sheath hematoma), hypertension, hyperlipidemia, DM 2 insulin requiring, temporal arthritis as per records, chronic anemia (baseline hemoglobin 8-9). Recent confinement 2 weeks ago for right-sided pneumonia. Patient discharged on Augmentin course. 3 days history of upper abdominal pain going to the back followed by nausea, vomiting, watery diarrhea symptoms. No chest pain, no S OB. No fever, no chills. Poor appetite. Patient brought to the ER for evaluation. 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 Allergies Allergy/AdvReac Type Severity Reaction Status Date / Time Influenza Virus Vaccines Allergy Mild SWELLING Verified 12/08/19 14:55 Home Medications Home Medications Medication Instructions Recorded Confirmed Type alprazolam [Xanax] 0.25 mg PO HS PRN 03/28/18 12/08/19 History ascorbic acid (vitamin C) [Vitamin 500 mg PO QAM 03/28/18 12/08/19 History C] calcium carbonate-vitamin D3 1 tab PO BID 03/28/18 12/08/19 History [Os-Arcadio 500 + D3] escitalopram oxalate [Lexapro] 10 mg PO QAM 03/28/18 12/08/19 History multivitamin 1 tab PO QAM 03/28/18 12/08/19 History rosuvastatin [Crestor] 20 mg PO QAM 03/28/18 12/08/19 History Tradjenta 5 mg PO QAM 07/07/19 12/08/19 History cranberry 400 mg PO QAM 07/07/19 12/08/19 History amitriptyline 25 mg PO HS 07/12/19 12/08/19 History amlodipine 5 mg PO QAM 07/12/19 12/08/19 History esomeprazole magnesium [Nexium] 20 mg PO QAM 07/12/19 12/08/19 History latanoprost 1 drp OPL HS 07/12/19 12/08/19 History ondansetron HCl [Zofran] 4 mg PO Q6H PRN 07/12/19 12/08/19 History Ibrance 100 mg PO DAILY 10/01/19 12/08/19 History metoprolol tartrate 100 mg PO BID 10/01/19 12/08/19 History oxycodone-acetaminophen [Percocet] 1 tab PO Q8H PRN 10/01/19 12/08/19 History diphenhydramine-acetaminophen 1 tab PO HS PRN 11/24/19 12/08/19 History [Tylenol PM Extra Strength] Lactobacillus acidoph-L.bulgar 1 tab PO TID #30 tab 11/26/19 12/08/19 Rx [Lactinex] Past Med/Surg History Medical History Acute hypoxemic respiratory failure Anxiety Arthritis Atrial tachycardia Cataracts, bilateral CKD (chronic kidney disease), stage III DM type 2 (diabetes mellitus, type 2) Dyslipidemia Goals of care, counseling/discussion HTN (hypertension) HX: breast cancer Metastatic breast cancer Paroxysmal atrial fibrillation S/P admission to ICU (intensive care unit) Temporal arteritis Surgical History H/O right mastectomy Jun 2018 History of appendectomy History of cataract surgery S/P partial colectomy Jul 2019 S/P LIZBETH-BSO Family History Mother Diabetes Social History Preferred Language: Eritre[place] Communication Ability: Effective 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: No Beliefs That Will Affect Care: None marital status: Current Living Situation: Spouse Current Living Situation Comment: lives with Other Information That Helps Us Care for You: No Feels Safe at Home: Yes Safety Concerns: Feels Safe At This Time Smoking Status: Never smoker Hx Alcohol Use: No Hx Substance Use: No Review of Systems Review of Systems: As per HPI, all 10 systems reviewed, all other ROS negative Physical Exam Physical Exam: GENERAL: Comfortable, pleasant, no respiratory distress SKIN: Pallor , warm HEENT: Bespectacled, pale palpebral conjunctivae, no ptosis, dry buccal mucosa NECK : Supple, no tenderness CHEST : CTA, no tenderness HEART : RRR, no obvious murmurs ABDOMEN: Marked distention with tenderness EXTREMITIES : No LE swelling/tenderness, no other conspicuous deformities noted NEUROLOGIC : Coherent, no facial asymmetry, no other gross focality Results & Data Results & Data ([facility]) Vital Signs (Past 12 Hours) Vital Signs Temp Pulse Resp BP Pulse Ox 12/08/19 20:30 88 23 94 12/08/19 20:24 89 13 129/55 L 95 12/08/19 20:00 86 18 93 12/08/19 19:59 86 15 129/55 L 92 12/08/19 19:41 95 H 16 12/08/19 19:00 83 17 94 12/08/19 18:30 81 17 91 12/08/19 18:00 78 19 12/08/19 17:47 78 17 130/59 L 91 12/08/19 17:30 78 19 90 12/08/19 17:00 77 19 92 12/08/19 16:30 78 21 93 12/08/19 16:00 76 15 91 12/08/19 15:14 76 17 116/56 L 95 12/08/19 14:01 36.8 C 78 18 96/61 L 95 Laboratory Results Laboratory Results WBC 15.71 K/uL (4.8-10.8) H 12/08/19 15:42 RBC 2.78 M/uL (4.2-5.4) L 12/08/19 15:42 Hgb 8.8 g/dL (12.0-16.0) L 12/08/19 15:42 Hct 27.5 % (37-47) L 12/08/19 15:42 MCV 98.9 fL (80-100) 12/08/19 15:42 MCH 31.7 pg (25-34) 12/08/19 15:42 MCHC 32.0 g/dL (32-36) 12/08/19 15:42 RDW Std Deviation 58.6 fL (36.4-46.3) H 12/08/19 15:42 RDW Coeff of Jennifer 16.0 % (11.5-14.5) H 12/08/19 15:42 Plt Count 319 K/uL (130-400) 12/08/19 15:42 MPV 9.2 fL (7.4-10.4) 12/08/19 15:42 Immature Gran % (Auto) 0.4 % 12/08/19 15:42 Neut % (Auto) 82.1 % 12/08/19 15:42 Lymph % (Auto) 7.2 % 12/08/19 15:42 [place] % (Auto) 7.3 % 12/08/19 15:42 Eos % (Auto) 2.8 % 12/08/19 15:42 Baso % (Auto) 0.2 % 12/08/19 15:42 Immature Gran # (Auto) 0.07 K/uL (0.00-0.02) H 12/08/19 15:42 Neut # (Auto) 12.89 K/uL (1.4-6.5) H 12/08/19 15:42 Lymph # (Auto) 1.13 K/uL (1.2-3.4) L 12/08/19 15:42 [place] # (Auto) 1.15 K/uL (0.11-0.59) H 12/08/19 15:42 Eos # (Auto) 0.44 K/uL (0-0.5) 12/08/19 15:42 Baso # (Auto) 0.03 K/uL (0-0.2) 12/08/19 15:42 PT 10.6 Seconds (9.0-12.0) 12/08/19 15:42 INR 1.0 (0.9-1.1) 12/08/19 15:42 APTT 24.2 Seconds (21.0-31.0) 12/08/19 15:42 PTT Ratio 0.9 12/08/19 15:42 Sodium 132 mmol/L (136-145) L 12/08/19 15:42 Potassium 4.7 mmol/L (3.5-5.1) 12/08/19 15:42 Chloride 96 mmol/L (98-107) L 12/08/19 15:42 Carbon Dioxide 30 mmol/L (21-32) 12/08/19 15:42 Anion Gap 6.0 (3-11) 12/08/19 15:42 BUN 35 mg/dl (7-18) H 12/08/19 15:42 Creatinine 1.95 mg/dl (0.6-1.2) H 12/08/19 15:42 Est Cr Clr Drug Dosing Not Reportable 12/08/19 15:42 Est GFR ( Amer) 26.7 12/08/19 15:42 Est GFR (Non-Af Amer) 23.1 12/08/19 15:42 BUN/Creatinine Ratio 17.9 (10-20) 12/08/19 15:42 Glucose 110 mg/dl (70-99) H 12/08/19 15:42 Lactate 1.0 mmol/L (0.4-2.0) 12/08/19 15:42 Calcium 9.0 mg/dl (8.5-10.1) 12/08/19 15:42 Magnesium 2.4 mg/dl (1.8-2.4) 12/08/19 15:42 Total Bilirubin 0.4 mg/dl (0.2-1) 12/08/19 15:42 AST 35 U/L (15-37) 12/08/19 15:42 ALT 21 U/L (12-78) 12/08/19 15:42 Alkaline Phosphatase 81 U/L (45-117) 12/08/19 15:42 Troponin I < 0.015 ng/ml (0-0.045) 12/08/19 15:42 Total Protein 7.2 gm/dl (6.4-8.2) 12/08/19 15:42 Albumin 3.1 gm/dl (3.4-5.0) L 12/08/19 15:42 Globulin 4.1 gm/dl (2.5-4.0) H 12/08/19 15:42 Albumin/Globulin Ratio 0.8 (0.9-2) L 12/08/19 15: Lipase 54 U/L (73-393) L 12/08/19 15:42 Procalcitonin 0.28 ng/ml (0-0.5) 12/08/19 15:42 Specimen Hemolysis 12/08/19 15:42 Urine Color Dark Yellow 12/08/19 18:45 Urine Appearance Cloudy (Clear) A 12/08/19 18:45 Urine pH 5.0 (4.5-7.5) 12/08/19 18:45 Ur Specific [place] 1.020 (1.000-1.030) 12/08/19 18:45 Urine Protein Trace (Negative) H 12/08/19 18:45 Urine Glucose (UA) Negative (Negative) 12/08/19 18:45 Urine Ketones 1+ (Negative) H 12/08/19 18:45 Urine Blood Negative (Negative) 12/08/19 18:45 Urine Nitrite Negative (Negative) 12/08/19 18:45 Urine Bilirubin Negative (Negative) 12/08/19 18:45 Urine Urobilinogen Negative (Negative) 12/08/19 18:45 Ur Leukocyte Esterase Negative (Negative) 12/08/19 18:45 Urine WBC (Auto) 1-5 /hpf (0-5) 12/08/19 18:45 Urine RBC (Auto) 0-4 /hpf (0-4) 12/08/19 18:45 U Hyaline Cast (Auto) 1-5 /lpf (0-5) 12/08/19 18:45 U Epithel Cells (Auto) >30 /lpf (0-5) H 12/08/19 18:45 Urine Bacteria (Auto) Negative (Negative) 12/08/19 18:45 Adenovirus (PCR) Not Detected (NotDetected) 12/08/19 17:10 B. pertussis DNA (PCR) Not Detected (NotDetected) 12/08/19 17:10 B.parapertussis DNA PCR Not Detected (NotDetected) 12/08/19 17:10 C. pneumoniae DNA (PCR) Not Detected (NotDetected) 12/08/19 17:10 Coronavirus OC43 (PCR) Not Detected (NotDetected) 12/08/19 17:10 Coronavirus HKU1 (PCR) Not Detected (NotDetected) 12/08/19 17:10 Coronavirus 229E (PCR) Not Detected (NotDetected) 12/08/19 17:10 Coronavirus NL63 (PCR) Not Detected (NotDetected) 12/08/19 17:10 Human Metapneumovir PCR Not Detected (NotDetected) 12/08/19 17:10 Influenza Type A (PCR) Not Detected (NotDetected) 12/08/19 17:10 Influenza Type B (PCR) Not Detected (NotDetected) 12/08/19 17:10 M. pneumoniae (PCR) Not Detected (NotDetected) 12/08/19 17:10 Parainfluenza 1 (PCR) Not Detected (NotDetected) 12/08/19 17:10 Parainfluenza 2 (PCR) Not Detected (NotDetected) 12/08/19 17:10 Parainfluenza 3 (PCR) Not Detected (NotDetected) 12/08/19 17:10 Parainfluenza 4 (PCR) Not Detected (NotDetected) 12/08/19 17:10 RSV (PCR) Not Detected (NotDetected) 12/08/19 17:10 Entero/Rhino (PCR) Not Detected (NotDetected) 12/08/19 17:[address] abdomen pelvis: 1. Significant interval worsening of local small bowel wall thickening in a loop of small bowel in the superior pelvis. The appearance is nonspecific and could raise concern for focal severe infectious or inflammatory enteritis, intramural hematoma, post radiation change, or focal angioedema among other etiologies. An ischemic etiology is not excluded though no pneumatosis is evident and the focal distribution may argue against this diagnosis. No perforation. 2. Resulting high-grade partial or complete small bowel obstruction. 3. Nodular infiltration of the omentum and peritoneum especially in the left upper quadrant. It is difficult to exclude peritoneal metastatic disease or peritonitis. Correlate with the patient's oncologic history. Follow-up is warranted. 4. 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 Chronic right renal atrophy. 5. Volume overload may be indicated by the ascites versus a reactive etiology. 6. Decreased right middle lobe consolidation with increased right basilar atelectasis in the setting of effusion. Chest x-ray : 1. Essential resolution of prior right mid lung infiltrates. 2. Trace right pleural effusion or pleural thickening. EKG as per my interpretation : Rate 75, NSR, LAD, LAFB, T wave flattening inferior leads
[2019-12-08] MEDS ORDERED: CARBOHYDRATES FOR HYPOGLYCEMIA PO PRN (22:33)
[2019-12-08] MEDS ORDERED: ACETAMINOPHEN 325 MG TAB PO PRN (22:33)
[2019-12-08] MEDS ORDERED: LORazepam 0.25 MG/0.5 ML VIAL IV PRN (22:33)
[2019-12-08] MEDS ORDERED: GLUCAGON FOR INJ 1 MG VIAL SQ PRN (22:33)
[2019-12-08] MEDS ORDERED: INSULIN ASPART 100 UNITS/ML 3 ML PEN SC SCH (22:33)
[2019-12-08] MEDS ORDERED: GLUCOSE 40% GEL 15 GM TUBE PO PRN (22:33)
[2019-12-08] MEDS ORDERED: DEXTROSE 50% 50 ML SYRINGE IV PRN (22:33)
[2019-12-08] MEDS ORDERED: GLUCOSE 10 TABS/TUBE PO PRN (22:33)
[2019-12-08] MEDS ORDERED: Nursing to Pharmacy Communication ONE (22:53)
[2019-12-08] MEDS: INSULIN ASPART 100 UNITS/ML 3 ML PEN SC SCH (23:22)
[2019-12-09] MEDS: HEPARIN SOD 5,000 UNIT/0.5 ML VIAL SQ SCH ×4 (00:18→20:21)
[2019-12-09] MEDS: METOPROLOL TARTRATE 1 MG/ML VIAL IV SCH ×5 (00:45→22:37)
[2019-12-09] MEDS: SODIUM CHLORIDE 0.9% 1000ML 1,000 ML IV SCH ×2 (06:00→21:16)
[2019-12-09 06:01] LABS: Basophils # (auto) 0.04 K/uL (0-0.2); Basophils % (auto) 0.4 %; Eosinophils # (auto) 0.54 K/uL (0-0.5); Eosinophils % (auto) 5.3 %; Hematocrit (blood only) 23.7 % (37-47); Hemoglobin 7.5 g/dL (12.0-16.0); Immature Granulocytes # (auto) 0.04 K/uL (0.00-0.02); Immature Granulocytes % (auto) 0.4 %; Lymphocytes # (auto) 1.03 K/uL (1.2-3.4); Lymphocytes % (auto) 10.1 %; Mean Corpuscular Hemoglobin 31.6 pg (25-34); Mean Corpuscular Hgb Conc 31.6 g/dL (32-36); Mean Platelet Volume 9.6 fL (7.4-10.4); Monocytes % (auto) 9.8 %; Neutrophils # (auto) 7.51 K/uL (1.4-6.5); Platelet Count 279 K/uL (130-400); RDW Coefficient of Variation 15.9 % (11.5-14.5); RDW Standard Deviation 57.9 fL (36.4-46.3); Red Blood Count 2.37 M/uL (4.2-5.4); White Blood Count 10.16 K/uL (4.8-10.8)
[2019-12-09] MEDS: INSULIN ASPART 100 UNITS/ML 3 ML PEN SC SCH ×4 (06:07→23:11)
[2019-12-09 06:28] LABS: BUN Creatinine Ratio 21.1 (10-20); Calcium 8.7 mg/dl (8.5-10.1); Est GFR (African American) 32.9; Est GFR (Non-African American) 28.4; Potassium 4.5 mmol/L (3.5-5.1)
[2019-12-09 06:33] LABS: Schistocytes 1+
[2019-12-09] MEDS: AMLODIPINE BESYLATE 5 MG TAB PO SCH (08:22)
[2019-12-09] MEDS: MULTIVITAMIN TAB PO SCH (08:22)
[2019-12-09] MEDS: LACTOBACILLUS ACIDOPHILUS (FLORANEX) TAB PO SCH ×3 (08:22→20:20)
[2019-12-09] MEDS: PANTOprazole 40 MG TAB PO SCH (08:22)
[2019-12-09] MEDS: ESCITALOPRAM OXALATE 10 MG TAB PO SCH (08:22)
[2019-12-09] MEDS: ROSUVASTATIN CALCIUM 20 MG TAB PO SCH (08:22)
[2019-12-09] MEDS: TRAMADOL HCL 50 MG TABLET PO PRN (10:55)
--- NOTE | 2019-12-09 11:54 | Urology Consultation ---
Date of Consultation December 09, 2019 Assessment & Plan (1) SOLITARIO (acute kidney injury): Very comorbid 84-year-old female with acute kidney injury She has chronic dilation of both renal pelvises, right greater than left, relatively stable appearance over the past 6 months I suspect that her renal dysfunction has not directly related to the obstruction but more related to her hydration status I think we should monitor her first and avoid any intervention from a standpoint presuming she shows continued improvement with hydration History of Present Illness Attending Physician: Ezequiel López MD History of Present Illness 84-year-old female with numerous significant comorbid conditionsurology consultation placed secondary to bilateral renal pelvis dilation/mild UPJ obstruction and elevated creatinine She is admitted currently with a small bowel obstruction and likely progressive metastatic disease She has had some improvement in creatinine since arrival Her CT shows persistent dilation of both renal pelvises, the right is certainly greater than the left She had prior imagingmultiple studies, showing a similar type configuration including a PET scan in July There may have been slight progression but it is not drastic Creatinine was recently near 1.0, currently 1.6 and was 1.9 when she arrived Of note, reviewing her past creatinine levels she has had substantial fluctuationlikely all related to hydration status Allergies Allergy/AdvReac Type Severity Reaction Status Date / Time Influenza Virus Vaccines Allergy Mild SWELLING Verified 12/08/19 14:55 Home Medications Home Medications Medication Instructions Recorded Confirmed Type alprazolam [Xanax] 0.25 mg PO HS PRN 03/28/18 12/08/19 History ascorbic acid (vitamin C) [Vitamin 500 mg PO QAM 03/28/18 12/08/19 History C] calcium carbonate-vitamin D3 1 tab PO BID 03/28/18 12/08/19 History [Os-Arcadio 500 + D3] escitalopram oxalate [Lexapro] 10 mg PO QAM 03/28/18 12/08/19 History multivitamin 1 tab PO QAM 03/28/18 12/08/19 History rosuvastatin [Crestor] 20 mg PO QAM 03/28/18 12/08/19 History Tradjenta 5 mg PO QAM 07/07/19 12/08/19 History cranberry 400 mg PO QAM 07/07/19 12/08/19 History amitriptyline 25 mg PO HS 07/12/19 12/08/19 History amlodipine 5 mg PO QAM 07/12/19 12/08/19 History esomeprazole magnesium [Nexium] 20 mg PO QAM 07/12/19 12/08/19 History latanoprost 1 drp OPL HS 07/12/19 12/08/19 History ondansetron HCl [Zofran] 4 mg PO Q6H PRN 07/12/19 12/08/19 History Ibrance 100 mg PO DAILY 10/01/19 12/08/19 History metoprolol tartrate 100 mg PO BID 10/01/19 12/08/19 History oxycodone-acetaminophen [Percocet] 1 tab PO Q8H PRN 10/01/19 12/08/19 History diphenhydramine-acetaminophen 1 tab PO HS PRN 11/24/19 12/08/19 History [Tylenol PM Extra Strength] Lactobacillus acidoph-L.bulgar 1 tab PO TID #30 tab 11/26/19 12/08/19 Rx [Lactinex] Patient History Medical History Acute hypoxemic respiratory failure Anxiety Arthritis Atrial tachycardia Cataracts, bilateral CKD (chronic kidney disease), stage III DM type 2 (diabetes mellitus, type 2) Dyslipidemia Goals of care, counseling/discussion HTN (hypertension) HX: breast cancer Metastatic breast cancer Paroxysmal atrial fibrillation S/P admission to ICU (intensive care unit) Temporal arteritis Surgical History H/O right mastectomy Jun 2018 History of appendectomy History of cataract surgery S/P partial colectomy Jul 2019 S/P LIZBETH-BSO Family History Mother Diabetes Social History Preferred Language: Irish Communication Ability: Effective Business Objects Consultant Required: No Beliefs That Will Affect Care: None marital status: Current Living Situation: Spouse Current Living Situation Comment: lives with Other Information That Helps Us Care for You: No Feels Safe at Home: Yes Safety Concerns: Feels Safe At This Time Smoking Status: Never smoker Hx Alcohol Use: No Hx Substance Use: No Review of Systems Constitutional: no fever and no chills Ear, Nose, Mouth, Throat: no tinnitus Respiratory: no cough and no dyspnea Cardiovascular: no chest pain Gastrointestinal: + abdominal pain, + nausea and + vomiting Genitourinary: no dysuria and no urinary frequency Musculoskeletal: no back pain and no radicular pain Integumentary: no rash Neurologic: no falls Psychiatric: no behavioral changes Endocrine: + fatigue Hematologic / Lymphatic: no easy bleeding Physical Exam Constitutional: well developed and well nourished Neck: neck nontender Respiratory: normal respiratory effort; no respiratory distress and does not use accessory muscles Cardiovascular: Rate/Rhythm: regular rate Vessels: radial pulses present Extremities: no edema Gastrointestinal (Abdomen): Inspection/Auscultation: abdomen normal to inspection Percussion/Palpation: abdomen soft; abdomen nontender and no guarding NG tube in placemoderately bilious drainage Musculoskeletal: Head/Neck/Chest: normocephalic and head atraumatic Extremities: extremities normal to inspection Skin: no rashes and no lesions Trauma: no evidence of skin trauma Neurologic: awake; not obtunded Speech / Cognition: normal speech Motor/Sensory: no tremor Psychiatric: Orientation: alert and oriented x 3 Genitourinary: no CVA tenderness Lymphatic: no lymphadenopathy Results & Data Vital Signs (Past 12 Hours) Vital Signs Temp Pulse Pulse Resp BP BP Pulse Ox 12/09/19 11:28 95 H 126/70 12/09/19 07:44 36.6 C 79 18 122/70 91 12/09/19 05:59 77 124/58 L 12/09/19 03:45 36.6 C 78 16 116/63 91 12/09/19 00:45 80 111/63 12/09/19 00:21 80 111/63 12/09/19 00:10 81 PG Care Time/CCT Total # of Minutes Spent Total Time Spent with Patient: Total time spent is greater than 50% in coordination of care (as documented) at patient's floor/unit and/or counseling patient: Coding Level of Care Code 89638 Inpt Consult Level 4 Diagnoses SOLITARIO (acute kidney injury) N17.9
--- NOTE | 2019-12-09 14:56 | Surgery Consultation ---
Date of Consultation December 09, 2019 Assessment & Plan (1) SBO (small bowel obstruction): Etiology of her nausea and vomiting may be small bowel obstruction with findings of thickening of the wall of the small bowel. This may be a severe enteritis. Inflammatory bowel disease must also be a consideration. It may also be due to chemotherapy-induced enteritis. Hopefully this will resolve spontaneously. Agree with continuing conservative measures for now. There is also possibility of intra-abdominal carcinomatosis based on nodularity seen on CAT scan. Would like to avoid surgical intervention if possible. History of Present Illness Reason for Consultation: Abdominal pain, diarrhea, nausea and vomiting Requesting Physician: Ezequiel López MD Attending Physician: Ezequiel López MD History of Present Illness We have been asked by Dr. López to see this 84-year-old female who presented to the emergency room with a complaint of abdominal pain, diarrhea, nausea and vomiting. The patient was well until 2 days ago. She then developed multiple episodes of diarrhea that were watery. She did not see blood. There was no melena. Following the onset of the diarrhea and then yesterday she developed abdominal pain. It was in the center of her abdomen it did radiate through to her back. It was sharp at times. It was associated with nausea and vomiting. She had no hematemesis. She thinks she had a fever of 102 at one point. She underwent a colon resection back in July. She was more recently admitted with pneumonia. She had some nausea and vomiting at that time as well. She underwent a CT scan of the abdomen and pelvis that showed significant interval worsening of local small bowel wall thickening in a loop of small bowel in the superior pelvis. The appearance is nonspecific and could raise concern for focal severe infectious or inflammatory enteritis, intramural hematoma, post radiation change, or focal angioedema among other etiologies. An ischemic etiology is not excluded though no pneumatosis is evident and the focal distribution may argue against this diagnosis. No perforation. There was also suggestion of a high- grade partial or complete bowel obstruction as result of the above findings. She also had evidence of nodularity of the anterior abdominal wall peritoneum and also of the omentum that was suspicious for metastatic nodules. She has a history of metastatic breast cancer. She had been undergoing chemotherapy but was not tolerating that well. Allergies Allergy/AdvReac Type Severity Reaction Status Date / Time Influenza Virus Vaccines Allergy Mild SWELLING Verified 12/08/19 14:55 Home Medications Home Medications Medication Instructions Recorded Confirmed Type alprazolam [Xanax] 0.25 mg PO HS PRN 03/28/18 12/08/19 History ascorbic acid (vitamin C) [Vitamin 500 mg PO QAM 03/28/18 12/08/19 History C] calcium carbonate-vitamin D3 1 tab PO BID 03/28/18 12/08/19 History [Os-Arcadio 500 + D3] escitalopram oxalate [Lexapro] 10 mg PO QAM 03/28/18 12/08/19 History multivitamin 1 tab PO QAM 03/28/18 12/08/19 History rosuvastatin [Crestor] 20 mg PO QAM 03/28/18 12/08/19 History Tradjenta 5 mg PO QAM 07/07/19 12/08/19 History cranberry 400 mg PO QAM 07/07/19 12/08/19 History amitriptyline 25 mg PO HS 07/12/19 12/08/19 History amlodipine 5 mg PO QAM 07/12/19 12/08/19 History esomeprazole magnesium [Nexium] 20 mg PO QAM 07/12/19 12/08/19 History latanoprost 1 drp OPL HS 07/12/19 12/08/19 History ondansetron HCl [Zofran] 4 mg PO Q6H PRN 07/12/19 12/08/19 History Ibrance 100 mg PO DAILY 10/01/19 12/08/19 History metoprolol tartrate 100 mg PO BID 10/01/19 12/08/19 History oxycodone-acetaminophen [Percocet] 1 tab PO Q8H PRN 10/01/19 12/08/19 History diphenhydramine-acetaminophen 1 tab PO HS PRN 11/24/19 12/08/19 History [Tylenol PM Extra Strength] Lactobacillus acidoph-L.bulgar 1 tab PO TID #30 tab 11/26/19 12/08/19 Rx [Lactinex] Patient History Medical History Acute hypoxemic respiratory failure Anxiety Arthritis Atrial tachycardia Cataracts, bilateral CKD (chronic kidney disease), stage III DM type 2 (diabetes mellitus, type 2) Dyslipidemia Goals of care, counseling/discussion HTN (hypertension) HX: breast cancer Metastatic breast cancer Paroxysmal atrial fibrillation S/P admission to ICU (intensive care unit) Temporal arteritis Surgical History H/O right mastectomy Jun 2018 History of appendectomy History of cataract surgery S/P partial colectomy Jul 2019 S/P LIZBETH-BSO Family History Mother Diabetes Social History Preferred Language: Yakut Communication Ability: Effective 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 Beliefs That Will Affect Care: None marital status: Current Living Situation: Spouse Current Living Situation Comment: lives with Other Information That Helps Us Care for You: No Feels Safe at Home: Yes Safety Concerns: Feels Safe At This Time Smoking Status: Never smoker Hx Alcohol Use: No Hx Substance Use: No Physical Exam Constitutional: no acute distress Neck: trachea midline Respiratory: normal respiratory effort, lungs clear to auscultation Cardiovascular: Rate/Rhythm: regular rate and regular rhythm Gastrointestinal (Abdomen): Inspection/Auscultation: + abdomen distended (Mild to moderate) and normal bowel sounds Percussion/Palpation: + abdomen tender (Mild diffuse without evidence of peritonitis) and abdomen soft Skin: no rashes, warm and dry Results & Data Vital Signs (Past 12 Hours) Vital Signs Temp Pulse Pulse Resp BP BP Pulse Ox 12/09/19 12:26 37.0 C 95 H 18 126/70 93 12/09/19 11:28 95 H 126/70 12/09/19 07:44 36.6 C 79 18 122/70 91 12/09/19 05:59 77 124/58 L 12/09/19 03:45 36.6 C 78 16 116/63 91 Laboratory Results 12/09/19 12/09/19 12/09/19 Range/Units 11:48 07:31 06:06 WBC (4.8-10.8) K/uL RBC (4.2-5.4) M/uL Hgb (12.0-16.0) g/dL Hct (37-47) % MCV (80-100) fL MCH (25-34) pg MCHC (32-36) g/dL RDW Std Deviation (36.4-46.3) fL RDW Coeff of Jennifer (11.5-14.5) % Plt Count (130-400) K/uL MPV (7.4-10.4) fL Immature Gran % (Auto) % Neut % (Auto) % Lymph % (Auto) % Lamb % (Auto) % Eos % (Auto) % Baso % (Auto) % Immature Gran # (Auto) (0.00-0.02) K/uL Neut # (Auto) (1.4-6.5) K/uL Lymph # (Auto) (1.2-3.4) K/uL Lamb # (Auto) (0.11-0.59) K/uL Eos # (Auto) (0-0.5) K/uL Baso # (Auto) (0-0.2) K/uL Schistocytes PT (9.0-12.0) Seconds INR (0.9-1.1) APTT (21.0-31.0) Seconds PTT Ratio Sodium (136-145) mmol/L Potassium (3.5-5.1) mmol/L Chloride (98-107) mmol/L Carbon Dioxide (21-32) mmol/L Anion Gap (3-11) BUN (7-18) mg/dl Creatinine (0.6-1.2) mg/dl Est Cr Clr Drug Dosing Est GFR ( Amer) Est GFR (Non-Af Amer) BUN/Creatinine Ratio (10-20) Glucose (70-99) mg/dl POC Glucose 72 73 78 (70-99) mg/dl Lactate (0.4-2.0) mmol/L Calcium (8.5-10.1) mg/dl Magnesium (1.8-2.4) mg/dl Total Bilirubin (0.2-1) mg/dl AST (15-37) U/L ALT (12-78) U/L Alkaline Phosphatase (45-117) U/L Troponin I (0-0.045) ng/ml Total Protein (6.4-8.2) gm/dl Albumin (3.4-5.0) gm/dl Globulin (2.5-4.0) gm/dl Albumin/Globulin Ratio (0.9-2) Lipase (73-393) U/L Procalcitonin (0-0.5) ng/ml Specimen Hemolysis Urine Color Urine Appearance (Clear) Urine pH (4.5-7.5) Ur Specific [place] (1.000-1.030) Urine Protein (Negative) Urine Glucose (UA) (Negative) Urine Ketones (Negative) Urine Blood (Negative) Urine Nitrite (Negative) Urine Bilirubin (Negative) Urine Urobilinogen (Negative) Ur Leukocyte Esterase (Negative) Urine WBC (Auto) (0-5) /hpf Urine RBC (Auto) (0-4) /hpf U Hyaline Cast (Auto) (0-5) /lpf U Epithel Cells (Auto) (0-5) /lpf Urine Bacteria (Auto) (Negative) Adenovirus (PCR) (NotDetected) B. pertussis DNA (PCR) (NotDetected) B.parapertussis DNA PCR (NotDetected) C. pneumoniae DNA (PCR) (NotDetected) Coronavirus OC43 (PCR) (NotDetected) Coronavirus HKU1 (PCR) (NotDetected) Coronavirus 229E (PCR) (NotDetected) Coronavirus NL63 (PCR) (NotDetected) Human Metapneumovir PCR (NotDetected) Influenza Type A (PCR) (NotDetected) Influenza Type B (PCR) (NotDetected) M. pneumoniae (PCR) (NotDetected) Parainfluenza 1 (PCR) (NotDetected) Parainfluenza 2 (PCR) (NotDetected) Parainfluenza 3 (PCR) (NotDetected) Parainfluenza 4 (PCR) (NotDetected) RSV (PCR) (NotDetected) Entero/Rhino (PCR) (NotDetected) Blood Type Antibody Screen 12/09/19 12/09/19 12/09/19 Range/Units 05:16 05:16 05:16 WBC 10.16 (4.8-10.8) K/uL RBC 2.37 L (4.2-5.4) M/uL Hgb 7.5 L (12.0-16.0) g/dL Hct 23.7 L (37-47) % MCV 100.0 (80-100) fL MCH 31.6 (25-34) pg MCHC 31.6 L (32-36) g/dL RDW Std Deviation 57.9 H (36.4-46.3) fL RDW Coeff of Jennifer 15.9 H (11.5-14.5) % Plt Count 279 (130-400) K/uL MPV 9.6 (7.4-10.4) fL Immature Gran % (Auto) 0.4 % Neut % (Auto) 74.0 % Lymph % (Auto) 10.1 % Lamb % (Auto) 9.8 % Eos % (Auto) 5.3 % Baso % (Auto) 0.4 % Immature Gran # (Auto) 0.04 H (0.00-0.02) K/uL Neut # (Auto) 7.51 H (1.4-6.5) K/uL Lymph # (Auto) 1.03 L (1.2-3.4) K/uL Lamb # (Auto) 1.00 H (0.11-0.59) K/uL Eos # (Auto) 0.54 H (0-0.5) K/uL Baso # (Auto) 0.04 (0-0.2) K/uL Schistocytes 1+ PT (9.0-12.0) Seconds INR (0.9-1.1) APTT (21.0-31.0) Seconds PTT Ratio Sodium 134 L (136-145) mmol/L Potassium 4.5 (3.5-5.1) mmol/L Chloride 100 (98-107) mmol/L Carbon Dioxide 25 (21-32) mmol/L Anion Gap 9.0 (3-11) BUN 35 H (7-18) mg/dl Creatinine 1.64 H D (0.6-1.2) mg/dl Est Cr Clr Drug Dosing 22.0 Est GFR ( Amer) 32.9 Est GFR (Non-Af Amer) 28.4 BUN/Creatinine Ratio 21.1 H (10-20) Glucose 79 (70-99) mg/dl POC Glucose (70-99) mg/dl Lactate (0.4-2.0) mmol/L Calcium 8.7 (8.5-10.1) mg/dl Magnesium (1.8-2.4) mg/dl Total Bilirubin (0.2-1) mg/dl AST (15-37) U/L ALT (12-78) U/L Alkaline Phosphatase (45-117) U/L Troponin I (0-0.045) ng/ml Total Protein (6.4-8.2) gm/dl Albumin (3.4-5.0) gm/dl Globulin (2.5-4.0) gm/dl Albumin/Globulin Ratio (0.9-2) Lipase (73-393) U/L Procalcitonin (0-0.5) ng/ml Specimen Hemolysis Urine Color Urine Appearance (Clear) Urine pH (4.5-7.5) Ur Specific [place] (1.000-1.030) Urine Protein (Negative) Urine Glucose (UA) (Negative) Urine Ketones (Negative) Urine Blood (Negative) Urine Nitrite (Negative) Urine Bilirubin (Negative) Urine Urobilinogen (Negative) Ur Leukocyte Esterase (Negative) Urine WBC (Auto) (0-5) /hpf Urine RBC (Auto) (0-4) /hpf U Hyaline Cast (Auto) (0-5) /lpf U Epithel Cells (Auto) (0-5) /lpf Urine Bacteria (Auto) (Negative) Adenovirus (PCR) (NotDetected) B. pertussis DNA (PCR) (NotDetected) B.parapertussis DNA PCR (NotDetected) C. pneumoniae DNA (PCR) (NotDetected) Coronavirus OC43 (PCR) (NotDetected) Coronavirus HKU1 (PCR) (NotDetected) Coronavirus 229E (PCR) (NotDetected) Coronavirus NL63 (PCR) (NotDetected) Human Metapneumovir PCR (NotDetected) Influenza Type A (PCR) (NotDetected) Influenza Type B (PCR) (NotDetected) M. pneumoniae (PCR) (NotDetected) Parainfluenza 1 (PCR) (NotDetected) Parainfluenza 2 (PCR) (NotDetected) Parainfluenza 3 (PCR) (NotDetected) Parainfluenza 4 (PCR) (NotDetected) RSV (PCR) (NotDetected) Entero/Rhino (PCR) (NotDetected) Blood Type O Positive Antibody Screen NEGATIVE 12/08/19 12/08/19 12/08/19 Range/Units 22:51 18:45 17:10 WBC (4.8-10.8) K/uL RBC (4.2-5.4) M/uL Hgb (12.0-16.0) g/dL Hct (37-47) % MCV (80-100) fL MCH (25-34) pg MCHC (32-36) g/dL RDW Std Deviation (36.4-46.3) fL RDW Coeff of Jennifer (11.5-14.5) % Plt Count (130-400) K/uL MPV (7.4-10.4) fL Immature Gran % (Auto) % Neut % (Auto) % Lymph % (Auto) % Lamb % (Auto) % Eos % (Auto) % Baso % (Auto) % Immature Gran # (Auto) (0.00-0.02) K/uL Neut # (Auto) (1.4-6.5) K/uL Lymph # (Auto) (1.2-3.4) K/uL Lamb # (Auto) (0.11-0.59) K/uL Eos # (Auto) (0-0.5) K/uL Baso # (Auto) (0-0.2) K/uL Schistocytes PT (9.0-12.0) Seconds INR (0.9-1.1) APTT (21.0-31.0) Seconds PTT Ratio Sodium (136-145) mmol/L Potassium (3.5-5.1) mmol/L Chloride (98-107) mmol/L Carbon Dioxide (21-32) mmol/L Anion Gap (3-11) BUN (7-18) mg/dl Creatinine (0.6-1.2) mg/dl Est Cr Clr Drug Dosing Est GFR ( Amer) Est GFR (Non-Af Amer) BUN/Creatinine Ratio (10-20) Glucose (70-99) mg/dl POC Glucose 111 H (70-99) mg/dl Lactate (0.4-2.0) mmol/L Calcium (8.5-10.1) mg/dl Magnesium (1.8-2.4) mg/dl Total Bilirubin (0.2-1) mg/dl AST (15-37) U/L ALT (12-78) U/L Alkaline Phosphatase (45-117) U/L Troponin I (0-0.045) ng/ml Total Protein (6.4-8.2) gm/dl Albumin (3.4-5.0) gm/dl Globulin (2.5-4.0) gm/dl Albumin/Globulin Ratio (0.9-2) Lipase (73-393) U/L Procalcitonin (0-0.5) ng/ml Specimen Hemolysis Urine Color Dark Yellow Urine Appearance Cloudy A (Clear) Urine pH 5.0 (4.5-7.5) Ur Specific [place] 1.020 (1.000-1.030) Urine Protein Trace H (Negative) Urine Glucose (UA) Negative (Negative) Urine Ketones 1+ H (Negative) Urine Blood Negative (Negative) Urine Nitrite Negative (Negative) Urine Bilirubin Negative (Negative) Urine Urobilinogen Negative (Negative) Ur Leukocyte Esterase Negative (Negative) Urine WBC (Auto) 1-5 (0-5) /hpf Urine RBC (Auto) 0-4 (0-4) /hpf U Hyaline Cast (Auto) 1-5 (0-5) /lpf U Epithel Cells (Auto) >30 H (0-5) /lpf Urine Bacteria (Auto) Negative (Negative) Adenovirus (PCR) Not Detected (NotDetected) B. pertussis DNA (PCR) Not Detected (NotDetected) B.parapertussis DNA PCR Not Detected (NotDetected) C. pneumoniae DNA (PCR) Not Detected (NotDetected) Coronavirus OC43 (PCR) Not Detected (NotDetected) Coronavirus HKU1 (PCR) Not Detected (NotDetected) Coronavirus 229E (PCR) Not Detected (NotDetected) Coronavirus NL63 (PCR) Not Detected (NotDetected) Human Metapneumovir PCR Not Detected (NotDetected) Influenza Type A (PCR) Not Detected (NotDetected) Influenza Type B (PCR) Not Detected (NotDetected) M. pneumoniae (PCR) Not Detected (NotDetected) Parainfluenza 1 (PCR) Not Detected (NotDetected) Parainfluenza 2 (PCR) Not Detected (NotDetected) Parainfluenza 3 (PCR) Not Detected (NotDetected) Parainfluenza 4 (PCR) Not Detected (NotDetected) RSV (PCR) Not Detected (NotDetected) Entero/Rhino (PCR) Not Detected (NotDetected) Blood Type Antibody Screen 12/08/19 12/08/19 12/08/19 Range/Units 15:42 15:42 15:42 WBC (4.8-10.8) K/uL RBC (4.2-5.4) M/uL Hgb (12.0-16.0) g/dL Hct (37-47) % MCV (80-100) fL MCH (25-34) pg MCHC (32-36) g/dL RDW Std Deviation (36.4-46.3) fL RDW Coeff of Jennifer (11.5-14.5) % Plt Count (130-400) K/uL MPV (7.4-10.4) fL Immature Gran % (Auto) % Neut % (Auto) % Lymph % (Auto) % Lamb % (Auto) % Eos % (Auto) % Baso % (Auto) % Immature Gran # (Auto) (0.00-0.02) K/uL Neut # (Auto) (1.4-6.5) K/uL Lymph # (Auto) (1.2-3.4) K/uL Lamb # (Auto) (0.11-0.59) K/uL Eos # (Auto) (0-0.5) K/uL Baso # (Auto) (0-0.2) K/uL Schistocytes PT 10.6 (9.0-12.0) Seconds INR 1.0 (0.9-1.1) APTT 24.2 (21.0-31.0) Seconds PTT Ratio 0.9 Sodium (136-145) mmol/L Potassium (3.5-5.1) mmol/L Chloride (98-107) mmol/L Carbon Dioxide (21-32) mmol/L Anion Gap (3-11) BUN (7-18) mg/dl Creatinine (0.6-1.2) mg/dl Est Cr Clr Drug Dosing Est GFR ( Amer) Est GFR (Non-Af Amer) BUN/Creatinine Ratio (10-20) Glucose (70-99) mg/dl POC Glucose (70-99) mg/dl Lactate 1.0 (0.4-2.0) mmol/L Calcium (8.5-10.1) mg/dl Magnesium (1.8-2.4) mg/dl Total Bilirubin (0.2-1) mg/dl AST (15-37) U/L ALT (12-78) U/L Alkaline Phosphatase (45-117) U/L Troponin I (0-0.045) ng/ml Total Protein (6.4-8.2) gm/dl Albumin (3.4-5.0) gm/dl Globulin (2.5-4.0) gm/dl Albumin/Globulin Ratio (0.9-2) Lipase (73-393) U/L Procalcitonin 0.28 (0-0.5) ng/ml Specimen Hemolysis Urine Color Urine Appearance (Clear) Urine pH (4.5-7.5) Ur Specific [place] (1.000-1.030) Urine Protein (Negative) Urine Glucose (UA) (Negative) Urine Ketones (Negative) Urine Blood (Negative) Urine Nitrite (Negative) Urine Bilirubin (Negative) Urine Urobilinogen (Negative) Ur Leukocyte Esterase (Negative) Urine WBC (Auto) (0-5) /hpf Urine RBC (Auto) (0-4) /hpf U Hyaline Cast (Auto) (0-5) /lpf U Epithel Cells (Auto) (0-5) /lpf Urine Bacteria (Auto) (Negative) Adenovirus (PCR) (NotDetected) B. pertussis DNA (PCR) (NotDetected) B.parapertussis DNA PCR (NotDetected) C. pneumoniae DNA (PCR) (NotDetected) Coronavirus OC43 (PCR) (NotDetected) Coronavirus HKU1 (PCR) (NotDetected) Coronavirus 229E (PCR) (NotDetected) Coronavirus NL63 (PCR) (NotDetected) Human Metapneumovir PCR (NotDetected) Influenza Type A (PCR) (NotDetected) Influenza Type B (PCR) (NotDetected) M. pneumoniae (PCR) (NotDetected) Parainfluenza 1 (PCR) (NotDetected) Parainfluenza 2 (PCR) (NotDetected) Parainfluenza 3 (PCR) (NotDetected) Parainfluenza 4 (PCR) (NotDetected) RSV (PCR) (NotDetected) Entero/Rhino (PCR) (NotDetected) Blood Type Antibody Screen 12/08/19 12/08/19 Range/Units 15:42 15:42 WBC 15.71 H (4.8-10.8) K/uL RBC 2.78 L (4.2-5.4) M/uL Hgb 8.8 L (12.0-16.0) g/dL Hct 27.5 L (37-47) % MCV 98.9 (80-100) fL MCH 31.7 (25-34) pg MCHC 32.0 (32-36) g/dL RDW Std Deviation 58.6 H (36.4-46.3) fL RDW Coeff of Jennifer 16.0 H (11.5-14.5) % Plt Count 319 (130-400) K/uL MPV 9.2 (7.4-10.4) fL Immature Gran % (Auto) 0.4 % Neut % (Auto) 82.1 % Lymph % (Auto) 7.2 % Lamb % (Auto) 7.3 % Eos % (Auto) 2.8 % Baso % (Auto) 0.2 % Immature Gran # (Auto) 0.07 H (0.00-0.02) K/uL Neut # (Auto) 12.89 H (1.4-6.5) K/uL Lymph # (Auto) 1.13 L (1.2-3.4) K/uL Lamb # (Auto) 1.15 H (0.11-0.59) K/uL Eos # (Auto) 0.44 (0-0.5) K/uL Baso # (Auto) 0.03 (0-0.2) K/uL Schistocytes PT (9.0-12.0) Seconds INR (0.9-1.1) APTT (21.0-31.0) Seconds PTT Ratio Sodium 132 L (136-145) mmol/L Potassium 4.7 (3.5-5.1) mmol/L Chloride 96 L (98-107) mmol/L Carbon Dioxide 30 (21-32) mmol/L Anion Gap 6.0 (3-11) BUN 35 H (7-18) mg/dl Creatinine 1.95 H (0.6-1.2) mg/dl Est Cr Clr Drug Dosing Not Reportable Est GFR ( Amer) 26.7 Est GFR (Non-Af Amer) 23.1 BUN/Creatinine Ratio 17.9 (10-20) Glucose 110 H (70-99) mg/dl POC Glucose (70-99) mg/dl Lactate (0.4-2.0) mmol/L Calcium 9.0 (8.5-10.1) mg/dl Magnesium 2.4 (1.8-2.4) mg/dl Total Bilirubin 0.4 (0.2-1) mg/dl AST 35 (15-37) U/L ALT 21 (12-78) U/L Alkaline Phosphatase 81 (45-117) U/L Troponin I < 0.015 (0-0.045) ng/ml Total Protein 7.2 (6.4-8.2) gm/dl Albumin 3.1 L (3.4-5.0) gm/dl Globulin 4.1 H (2.5-4.0) gm/dl Albumin/Globulin Ratio 0.8 L (0.9-2) Lipase 54 L (73-393) U/L Procalcitonin (0-0.5) ng/ml Specimen Hemolysis Urine Color Urine Appearance (Clear) Urine pH (4.5-7.5) Ur Specific [place] (1.000-1.030) Urine Protein (Negative) Urine Glucose (UA) (Negative) Urine Ketones (Negative) Urine Blood (Negative) Urine Nitrite (Negative) Urine Bilirubin (Negative) Urine Urobilinogen (Negative) Ur Leukocyte Esterase (Negative) Urine WBC (Auto) (0-5) /hpf Urine RBC (Auto) (0-4) /hpf U Hyaline Cast (Auto) (0-5) /lpf U Epithel Cells (Auto) (0-5) /lpf Urine Bacteria (Auto) (Negative) Adenovirus (PCR) (NotDetected) B. pertussis DNA (PCR) (NotDetected) B.parapertussis DNA PCR (NotDetected) C. pneumoniae DNA (PCR) (NotDetected) Coronavirus OC43 (PCR) (NotDetected) Coronavirus HKU1 (PCR) (NotDetected) Coronavirus 229E (PCR) (NotDetected) Coronavirus NL63 (PCR) (NotDetected) Human Metapneumovir PCR (NotDetected) Influenza Type A (PCR) (NotDetected) Influenza Type B (PCR) (NotDetected) M. pneumoniae (PCR) (NotDetected) Parainfluenza 1 (PCR) (NotDetected) Parainfluenza 2 (PCR) (NotDetected) Parainfluenza 3 (PCR) (NotDetected) Parainfluenza 4 (PCR) (NotDetected) RSV (PCR) (NotDetected) Entero/Rhino (PCR) (NotDetected) Blood Type Antibody Screen Diagnostic Findings CT abd pelvis oral con only CLINICAL HISTORY: 84 years-old Female presenting with fever abd pain ro sbo. TECHNIQUE: Multidetector CT of the abdomen and pelvis was performed after the administration of oral contrast only. IV contrast: None. One or more dose lowering techniques were used consistent with the principles of ALARA (as low as reasonably achievable), including automatic exposure control, mA or kV adjustment to individual patient size, and/or use of iterative reconstruction. COMPARISON: 11/24/2019. CT DOSE (mGy.cm): The estimated cumulative dose is 656.90 mGycm. FINDINGS: Color Card Maker topogram: Unremarkable. Lung bases: Normal heart size. Small to moderate right pleural effusion significantly increased from prior. Minimal peribronchovascular infiltrates in the posterior basal right lower lobe. Decreased consolidation in the lateral segment of the right middle lobe. Dependent consolidation in the right lower lobe likely in part reflects extensive passive atelectasis in the setting of the effusion. Minimal atelectasis in the dependent left lower lobe. Liver: Normal morphology. Normal density. Biliary: No gross biliary ductal dilatation allowing for noncontrast technique. Layering high density in the gallbladder may represent inspissated bile or gallbladder sludge. No gross evidence of gallbladder wall thickening. Pancreas: Moderate parenchymal atrophy. Spleen: Normal noncontrast appearance. Adrenal glands: Normal noncontrast appearance. Kidneys and ureters: Cortical thinning of the right kidney with severe right pelvocaliectasis. 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 No nephrolithiasis. Mild left pelvocaliectasis slightly increased from prior exam. Left ureter nondistended. Prominent cysts noted in the posterior interpolar left kidney. Bladder: Incompletely evaluated secondary to underdistention. Pelvic organs: Uterus surgically absent. Bowel: Diverticulosis of the sigmoid colon without focal wall thickening or pericolonic inflammatory change. Minimal diffuse wall thickening of the colon may be present to the level of the cecum. The appendix is not delineated. The terminal ileum is decompressed. Oral contrast has been diluted likely due to fluid-filled loops of small bowel. Contrast has not yet reached the distal ileum. Interval increase in distention of small bowel loops. Smooth transition of dilated bowel upstream. Small bowel measures up to 3.7 cm in diameter there is a nearly smooth transition to a less dilated caliber downstream. Marked small bowel wall thickening in the superior pelvis. The bowel wall is heterogeneous in density. The thickened loop of bowel extends approximately 15 to 20 cm in length. Beyond this bowel is decompressed. The degree of bowel wall thickening is worsened from prior. No pneumatosis. Wall thickening of the gastric antrum and mild wall thickening of the duodenum. Peritoneal cavity: No free intraperitoneal gas. Interval increase in small volume ascites in the abdomen and pelvis. Infiltrative changes in the mesentery and omentum. Some infiltrative change is rather nodular in appearance especially in the left upper quadrant. A suture margin is noted in the left upper quadrant. Lymph nodes: No gross lymphadenopathy allowing for noncontrast technique. Vasculature: Atherosclerosis of the normal caliber abdominal aorta. Abdominal wall: Postsurgical changes of the anterior abdominal wall with several prior port site suspected. Right mastectomy also suspected. Musculoskeletal: Degenerative changes of the spine. No destructive osseous lesion. IMPRESSION: 1. Significant interval worsening of local small bowel wall thickening in a loop of small bowel in the superior pelvis. The appearance is nonspecific and could raise concern for focal severe infectious or inflammatory enteritis, intramural hematoma, post radiation change, or focal angioedema among other etiologies. An ischemic etiology is not excluded though no pneumatosis is evident and the focal distribution may argue against this diagnosis. No perforation. 2. Resulting high-grade partial or complete small bowel obstruction. 3. Nodular infiltration of the omentum and peritoneum especially in the left upper quadrant. It is difficult to exclude peritoneal metastatic disease or peritonitis. Correlate with the patient's oncologic history. Follow-up is warranted. 4. 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 Chronic right renal atrophy. 5. Volume overload may be indicated by the ascites versus a reactive etiology. 6. Decreased right middle lobe consolidation with increased right basilar atelectasis in the setting of effusion.
--- NOTE | 2019-12-09 15:24 | Electrocardiogram Report ---
Test Reason : Blood Pressure : / mmHG Vent. Rate : 077 BPM Atrial Rate : 077 BPM P-R Int : 182 ms QRS Dur : 080 ms QT Int : 400 ms P-R-T Axes : 050 -03 047 degrees QTc Int : 452 ms Poor data quality, interpretation may be adversely affected Normal sinus rhythm Normal ECG When compared with ECG of 24-NOV-2019 10:25, No significant change was found Confirmed by Juvenal Reid ([id number]) on 12/09/2019 3:24:39 PM Referred By: REFERRED SELF Confirmed By:Juvenal Reid
[2019-12-09] MEDS: ACETAMINOPHEN 1,000 MG/100 ML VIAL IV PRN (15:49)
[2019-12-09] MEDS: AMITRIPTYLINE HCL 25 MG TAB PO SCH (20:20)
[2019-12-09] MEDS: LATANOPROST 0.005% OP SOLN 2.5 ML BTL OPL SCH (20:20)
[2019-12-09] MEDS: PROMETHAZINE HCL 12.5 MG in SODIUM CHLORIDE 0.9% 50 ML IV PRN (21:16)
[2019-12-09] MEDS: HYDROmorphone INJ 0.5 MG/0.5 ML SYR IV PRN (22:08)
[2019-12-09 23:02] LABS: Hematocrit (blood only) 24.4 % (37-47); Hemoglobin 7.7 g/dL (12.0-16.0)
[2019-12-09 23:18] LABS: BUN Creatinine Ratio 20.9 (10-20); Calcium 8.2 mg/dl (8.5-10.1); Creatinine Clr Calc Pharmacy 24.8 ml/min; Est GFR (African American) 37.9; Est GFR (Non-African American) 32.7; Potassium 4.4 mmol/L (3.5-5.1)
[2019-12-10] MEDS: D5W AND LACTATED RINGERS 1,000 ML IV SCH ×3 (00:01→18:35)
[2019-12-10 00:11] LABS: Albumin Level 2.7 gm/dl (3.4-5.0); Magnesium 2.2 mg/dl (1.8-2.4)
--- NOTE | 2019-12-10 03:23 | Hospitalist Progress Note ---
Date of Service delayed entry date of service 12/09/19 December 10, 2019 Assessment & Plan (1) SBO (small bowel obstruction): ? Secondary to peritoneal mets hx metastatic breast cancer status post surgery, radiation (chemotherapy currently on hold) -- CT chest: 1. Significant interval worsening of local small bowel wall thickening in a loop of small bowel in the superior pelvis. The appearance is nonspecific and could raise concern for focal severe infectious or inflammatory enteritis, intr amural hematoma, post radiation change, or focal angioedema among other etiologies. An ischemic etiology is not excluded though no pneumatosis is evident and the focal distribution may argue against this diagnosis. No perforation. 2. Resulting high-grade partial or complete small bowel obstruction. 3. Nodular infiltration of the omentum and peritoneum especially in the left upper quadrant. It is difficult to exclude peritoneal metastatic disease or peritonitis. Correlate with the patient's oncologic history. Follow-up is warranted. 4. 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 Chronic right renal atrophy. 5. Volume overload may be indicated by the ascites versus a reactive etiology. 6. Decreased right middle lobe consolidation with increased right basilar atelectasis in the setting of effusion. -- Gen Surg consulted continue NG tube, NPO, IV fluids monitor closely Postobstructive diarrhea rule out C. difficile given recent confinem ent/antibiotic Rx -- resolving C diff pending Acute Renal Failure secondary to vomiting, diarrhea Obstructive uropathy on CT possibly contributory -- CT chest: Findings suggest bilateral ureteropelvic junction obstruction worse on the right. Chronic right renal atrophy. -- crea improving continue IV fluids -- Urologist consulted for UPJ obstruction PAF, patient NSR --off anticoagulation secondary to history of rectus sheath hematoma hypertension -- stable on Amlodipine, Metoprolol hyperlipidemia on statin Rx DM 2 insulin requiring, well-controlled as of recent hemoglobin A1c of 6.20 October 2019 temporal arthritis as per records chronic anemia, hemoglobin at baseline DVT prophylaxis with Heparin subcu DNR Admission and Anticipated Discharge Date Admission Date: December 08, 2019 Subjective ff up for small bowel obstruction seen resting in bed, comfortable, not in distress NG tube in place states she feels some improvement compared to previous day still has intermittent abdominal discomfort no nausea no flatus or BM yet no changes with urination no fever/chills, chest pain, shortness of breath no other symptoms Review of Systems Review of Systems: All systems reviewed & are unremarkable except as noted in HPI & below Physical Exam Physical Exam: General- oriented x 3, not in distress, speaks in sentences with no effort or accessory muscle use Head- atraumatic Eyes- PERRL, EOMI, anicteric ENT- oropharynx clear NG tube in place draining bilious fluid Neck- supple, no JVD, no adenopathy, no thyromegaly; carotids +2/2, no bruits appreciated Lungs- clear to auscultation bilaterally, no rales/wheezes Heart- normal rate, regular rhythm; no murmur, no gallop, no rub appreciated Abdomen- hypoactive bowel sounds, nondistended, soft, nontender, no masses or hepatosplenomegaly Extremities- no pretibial edema, no calf tenderness; peripheral pulses intact Neuro- alert, oriented x 3; CN 2-12 grossly intact; motor 5/5 bilaterally;sensation 100% on all extremities; no other gross focal neurologic deficits Skin- warm & dry Results & Data Results & Data ([facility]) Vital Signs (Past 12 Hours) Vital Signs Temp Pulse Pulse Resp BP BP Pulse Ox 12/09/19 23:50 37.1 C 117 H 20 127/68 94 12/09/19 22:37 117 H 127/68 12/09/19 22:20 129 H 12/09/19 19:07 36.6 C 90 18 147/72 H 94 12/09/19 16:56 95 H 12/09/19 16:13 36.5 C 95 H 18 145/66 H 95 Laboratory Results all noted and reviewed
[2019-12-10] MEDS: METOPROLOL TARTRATE 1 MG/ML VIAL IV SCH (05:31)
[2019-12-10] MEDS: INSULIN ASPART 100 UNITS/ML 3 ML PEN SC SCH ×3 (05:31→18:38)
[2019-12-10] MEDS: HEPARIN SOD 5,000 UNIT/0.5 ML VIAL SQ SCH ×3 (05:32→20:16)
--- NOTE | 2019-12-10 08:15 | Urology Progress Note ---
Date of Service December 10, 2019 Assessment & Plan (1) SOLITARIO (acute kidney injury): Improving with hydration - plan for continued observation - will follow from a distance - avoid intervention unless substantial change Subjective Cr continues to improve overall condition stable Results & Data Vital Signs (Past 12 Hours) Vital Signs Temp Pulse Pulse Resp BP BP Pulse Ox 12/10/19 07:39 37.1 C 112 H 20 150/73 H 94 12/10/19 05:31 118 H 148/69 H 12/10/19 03:26 37.1 C 121 H 20 148/69 H 92 12/09/19 23:50 37.1 C 117 H 20 127/68 94 12/09/19 22:37 117 H 127/68 12/09/19 22:20 129 H PG Care Time/CCT Total # of Minutes Spent Total Time Spent with Patient: Total time spent is greater than 50% in coordination of care (as documented) at patient's floor/unit and/or counseling patient: Coding Level of Care Code 44301 Subseq Hosp Care Lvl 1 Diagnoses SOLITARIO (acute kidney injury) N17.9
[2019-12-10 08:29] LABS: Basophils # (auto) 0.02 K/uL (0-0.2); Basophils % (auto) 0.2 %; Eosinophils # (auto) 0.36 K/uL (0-0.5); Hematocrit (blood only) 25.1 % (37-47); Immature Granulocytes # (auto) 0.03 K/uL (0.00-0.02); Immature Granulocytes % (auto) 0.3 %; Lymphocytes # (auto) 1.02 K/uL (1.2-3.4); Lymphocytes % (auto) 8.5 %; Mean Corpuscular Hemoglobin 31.1 pg (25-34); Mean Corpuscular Hgb Conc 31.9 g/dL (32-36); Mean Corpuscular Volume 97.7 fL (80-100); Mean Platelet Volume 9.6 fL (7.4-10.4); Monocytes # (auto) 0.71 K/uL (0.11-0.59); Monocytes % (auto) 5.9 %; Neutrophils # (auto) 9.83 K/uL (1.4-6.5); Neutrophils % (auto) 82.1 %; Platelet Count 252 K/uL (130-400); RDW Coefficient of Variation 15.7 % (11.5-14.5); Red Blood Count 2.57 M/uL (4.2-5.4); White Blood Count 11.97 K/uL (4.8-10.8)
[2019-12-10 08:34] LABS: Albumin Level 2.5 gm/dl (3.4-5.0); BUN Creatinine Ratio 18.5 (10-20); Calcium 8.7 mg/dl (8.5-10.1); Est GFR (African American) 42.1; Est GFR (Non-African American) 36.3; Magnesium 2.3 mg/dl (1.8-2.4); Potassium 4.5 mmol/L (3.5-5.1)
[2019-12-10 08:37] LABS: Albumin Globulin Ratio 0.7 (0.9-2); Bilirubin,Total 0.4 mg/dl (0.2-1); Globulin 3.5 gm/dl (2.5-4.0); Phosphorus 3.3 mg/dl (2.5-4.9)
[2019-12-10] MEDS: MULTIVITAMIN TAB PO SCH (08:55)
[2019-12-10] MEDS: ROSUVASTATIN CALCIUM 20 MG TAB PO SCH (08:55)
[2019-12-10] MEDS: LACTOBACILLUS ACIDOPHILUS (FLORANEX) TAB PO SCH ×3 (08:55→20:14)
[2019-12-10] MEDS: ESCITALOPRAM OXALATE 10 MG TAB PO SCH (08:55)
[2019-12-10] MEDS: AMLODIPINE BESYLATE 5 MG TAB PO SCH (08:55)
[2019-12-10] MEDS: PANTOprazole 40 MG TAB PO SCH (08:55)
[2019-12-10] MEDS: METOPROLOL TARTRATE 25 MG TAB PO SCH ×2 (09:25→20:14)
--- NOTE | 2019-12-10 13:44 | Surgery Progress Note ---
Date of Service December 10, 2019 Assessment & Plan (1) SBO (small bowel obstruction): Etiology of her nausea and vomiting may be small bowel obstruction with findings of thickening of the wall of the small bowel. This may be a severe enteritis. Inflammatory bowel disease must also be a consideration. It may also be due to chemotherapy-induced enteritis. Hopefully this will resolve spontaneously. Agree with continuing conservative measures for now. There is also possibility of intra-abdominal carcinomatosis based on nodularity seen on CAT scan. Would like to avoid surgical intervention if possible. keep NPO for one more day with NGT given mild abdominal distention continue pain management as needed, IV tylenol added prn to avoid PO meds continue medical management Dr. Frias was present during my examination and agrees with above. Subjective patient feeling a little better today in regards to abdominal pain but feeling tired today no nausea or vomiting passed some gas and some liquid/formed stool this am, not much feels less bloated than last few days Physical Exam Constitutional: WD/WN, vitals as above no acute distress Respiratory: normal respiratory effort; no respiratory distress Gastrointestinal (Abdomen): Inspection/Auscultation: + abdomen distended (mild) and normal bowel sounds Percussion/Palpation: abdomen soft; abdomen nontender, no guarding and abdomen not rigid Skin: no rashes, warm and dry Psychiatric: Orientation: alert and oriented x 3 Results & Data Vital Signs (Past 12 Hours) Vital Signs Temp Pulse Pulse Resp BP BP Pulse Ox 12/10/19 11:50 36.8 C 103 H 16 128/73 94 12/10/19 07:39 37.1 C 112 H 20 150/73 H 94 12/10/19 05:31 118 H 148/69 H 12/10/19 03:26 37.1 C 121 H 20 148/69 H 92 Laboratory Results 12/10/19 12/10/19 12/10/19 Range/Units 11:58 08:00 08:00 WBC 11.97 H (4.8-10.8) K/uL RBC 2.57 L (4.2-5.4) M/uL Hgb 8.0 L (12.0-16.0) g/dL Hct 25.1 L (37-47) % MCV 97.7 (80-100) fL MCH 31.1 (25-34) pg MCHC 31.9 L (32-36) g/dL RDW Std Deviation 56.0 H (36.4-46.3) fL RDW Coeff of Jennifer 15.7 H (11.5-14.5) % Plt Count 252 (130-400) K/uL MPV 9.6 (7.4-10.4) fL Immature Gran % (Auto) 0.3 % Neut % (Auto) 82.1 % Lymph % (Auto) 8.5 % [place] % (Auto) 5.9 % Eos % (Auto) 3.0 % Baso % (Auto) 0.2 % Immature Gran # (Auto) 0.03 H (0.00-0.02) K/uL Neut # (Auto) 9.83 H (1.4-6.5) K/uL Lymph # (Auto) 1.02 L (1.2-3.4) K/uL [place] # (Auto) 0.71 H (0.11-0.59) K/uL Eos # (Auto) 0.36 (0-0.5) K/uL Baso # (Auto) 0.02 (0-0.2) K/uL Sodium 135 L (136-145) mmol/L Potassium 4.5 (3.5-5.1) mmol/L Chloride 104 (98-107) mmol/L Carbon Dioxide 17 L (21-32) mmol/L Anion Gap 14.0 H (3-11) BUN 25 H (7-18) mg/dl Creatinine 1.34 H (0.6-1.2) mg/dl Est Cr Clr Drug Dosing 27.0 ml/min Est GFR ( Amer) 42.1 Est GFR (Non-Af Amer) 36.3 BUN/Creatinine Ratio 18.5 (10-20) Glucose 183 H (70-99) mg/dl POC Glucose 198 H (70-99) mg/dl Calcium 8.7 (8.5-10.1) mg/dl Phosphorus 3.3 (2.5-4.9) mg/dl Magnesium 2.3 (1.8-2.4) mg/dl Total Bilirubin 0.4 (0.2-1) mg/dl AST 40 H (15-37) U/L ALT 20 (12-78) U/L Alkaline Phosphatase 70 (45-117) U/L Total Protein 6.0 L (6.4-8.2) gm/dl Albumin 2.5 L (3.4-5.0) gm/dl Globulin 3.5 (2.5-4.0) gm/dl Albumin/Globulin Ratio 0.7 L (0.9-2) 12/10/19 12/09/19 12/09/19 Range/Units 05:30 22:48 22:48 WBC (4.8-10.8) K/uL RBC (4.2-5.4) M/uL Hgb 7.7 L (12.0-16.0) g/dL Hct 24.4 L (37-47) % MCV (80-100) fL MCH (25-34) pg MCHC (32-36) g/dL RDW Std Deviation (36.4-46.3) fL RDW Coeff of Jennifer (11.5-14.5) % Plt Count (130-400) K/uL MPV (7.4-10.4) fL Immature Gran % (Auto) % Neut % (Auto) % Lymph % (Auto) % [place] % (Auto) % Eos % (Auto) % Baso % (Auto) % Immature Gran # (Auto) (0.00-0.02) K/uL Neut # (Auto) (1.4-6.5) K/uL Lymph # (Auto) (1.2-3.4) K/uL [place] # (Auto) (0.11-0.59) K/uL Eos # (Auto) (0-0.5) K/uL Baso # (Auto) (0-0.2) K/uL Sodium 139 (136-145) mmol/L Potassium 4.4 (3.5-5.1) mmol/L Chloride 105 (98-107) mmol/L Carbon Dioxide 14 L (21-32) mmol/L Anion Gap 20.0 H (3-11) BUN 31 H (7-18) mg/dl Creatinine 1.46 H (0.6-1.2) mg/dl Est Cr Clr Drug Dosing 24.8 ml/min Est GFR ( Amer) 37.9 Est GFR (Non-Af Amer) 32.7 BUN/Creatinine Ratio 20.9 H (10-20) Glucose 77 (70-99) mg/dl POC Glucose 169 H (70-99) mg/dl Calcium 8.2 L (8.5-10.1) mg/dl Phosphorus (2.5-4.9) mg/dl Magnesium 2.2 (1.8-2.4) mg/dl Total Bilirubin (0.2-1) mg/dl AST (15-37) U/L ALT (12-78) U/L Alkaline Phosphatase (45-117) U/L Total Protein (6.4-8.2) gm/dl Albumin 2.7 L (3.4-5.0) gm/dl Globulin (2.5-4.0) gm/dl Albumin/Globulin Ratio (0.9-2) 12/09/19 12/09/19 12/09/19 Range/Units 22:33 18:05 05:16 WBC (4.8-10.8) K/uL RBC (4.2-5.4) M/uL Hgb (12.0-16.0) g/dL Hct (37-47) % MCV (80-100) fL MCH (25-34) pg MCHC (32-36) g/dL RDW Std Deviation (36.4-46.3) fL RDW Coeff of Jennifer (11.5-14.5) % Plt Count (130-400) K/uL MPV (7.4-10.4) fL Immature Gran % (Auto) % Neut % (Auto) % Lymph % (Auto) % [place] % (Auto) % Eos % (Auto) % Baso % (Auto) % Immature Gran # (Auto) (0.00-0.02) K/uL Neut # (Auto) (1.4-6.5) K/uL Lymph # (Auto) (1.2-3.4) K/uL [place] # (Auto) (0.11-0.59) K/uL Eos # (Auto) (0-0.5) K/uL Baso # (Auto) (0-0.2) K/uL Sodium (136-145) mmol/L Potassium (3.5-5.1) mmol/L Chloride (98-107) mmol/L Carbon Dioxide (21-32) mmol/L Anion Gap (3-11) BUN (7-18) mg/dl Creatinine (0.6-1.2) mg/dl Est Cr Clr Drug Dosing ml/min Est GFR ( Amer) Est GFR (Non-Af Amer) BUN/Creatinine Ratio (10-20) Glucose (70-99) mg/dl POC Glucose 81 71 (70-99) mg/dl Calcium (8.5-10.1) mg/dl Phosphorus (2.5-4.9) mg/dl Magnesium 2.5 H (1.8-2.4) mg/dl Total Bilirubin (0.2-1) mg/dl AST (15-37) U/L ALT (12-78) U/L Alkaline Phosphatase (45-117) U/L Total Protein (6.4-8.2) gm/dl Albumin (3.4-5.0) gm/dl Globulin (2.5-4.0) gm/dl Albumin/Globulin Ratio (0.9-2)
--- NOTE | 2019-12-10 18:27 | Hospitalist Progress Note ---
Date of Service December 10, 2019 Assessment & Plan (1) SBO (small bowel obstruction): ? Secondary to peritoneal mets hx metastatic breast cancer status post surgery, radiation (chemotherapy currently on hold) -- CT chest: 1. Significant interval worsening of local small bowel wall thickening in a loop of small bowel in the superior pelvis. The appearance is nonspecific and could raise concern for focal severe infectious or inflammatory enteritis, intramural hematoma, post radiation change, or focal angioedema among other etiologies. An ischemic etiology is not excluded though no pneumatosis is evident and the focal distribution may argue against this diagnosis. No perforation. 2. Resulting high-grade partial or complete small bowel obstruction. 3. Nodular infiltration of the omentum and peritoneum especially in the left upper quadrant. It is difficult to exclude peritoneal metastatic disease or peritonitis. Correlate with the patient's oncologic history. Follow-up is warranted. 4. 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 Chronic right renal atrophy. 5. Volume overload may be indicated by the ascites versus a reactive etiology. 6. Decreased right middle lobe consolidation with increased right basilar atelectasis in the setting of effusion. -NG tube was started and general surgery was consulted to follow patient with hospitalist team -12/10/2019 Patient continues to have NG tube. She did report making bowel movement. no acute distress. she agrees to continue to have NG tube remain for now and the will have follow up X ray on 12/11/2019. continue IV fluids Postobstructive diarrhea -C.difficile is negative Acute Renal Failure secondary to vomiting, diarrhea Obstructive uropathy on CT possibly contributory - CT chest: Findings suggest bilateral ureteropelvic junction obstruction worse on the right. Chronic right renal atrophy. -no acute interventions as per urology and to simply continue IV fluids Paroxysmal Atrial Fibrillation , patient NSR -patient has been noted to be between normal sinus rhythm and atrial flutter -however is off anticoagulation secondary to history of rectus sheath hematoma -she was given additional metoprolol on 12/10/2019 chronic anemia -hemoglobin stable hypertension -on Amlodipine, Metoprolol hyperlipidemia -on statin Rx Type 2 diabetes -recent hemoglobin A1c of 6.20 October 2019 -on sliding scale insulin for now temporal arthritis as per records DVT prophylaxis with Heparin subcu DNR Admission and Anticipated Discharge Date Admission Date: December 08, 2019 Subjective Patient continues to have NG tube. She did report making bowel movement. no acute distress. she agrees to continue to have NG tube remain for now and the will have follow up X ray on 12/11/2019. no shortness of breath. no chest pain. no vomiting. no dizziness. no headache. Review of Systems Review of Systems: All systems reviewed & are unremarkable except as noted in Subjective Physical Exam Constitutional: comfortable Eyes: PERRL, conjunctivae normal, anicteric sclerae EOM intact bilaterally ENMT: has NG tube Neck: normal visual inspection Respiratory: normal respiratory effort, lungs clear to auscultation Cardiovascular: Rate/Rhythm: regular rate Gastrointestinal (Abdomen): Inspection/Auscultation: + abdomen distended Percussion/Palpation: abdomen soft Musculoskeletal: Head/Neck/Chest: normocephalic and head atraumatic Neurologic: PERRL, EOMI, accommodation nl, no face palsy, no dysarthria Psychiatric: A+Ox3, euthymic affect Results & Data Results & Data ([facility]) Vital Signs (Past 12 Hours) Vital Signs Temp Pulse Pulse Resp BP BP Pulse Ox 12/10/19 15:11 37.3 C 88 17 144/66 H 93 12/10/19 14:20 100 H 12/10/19 11:50 36.8 C 103 H 16 128/73 94 12/10/19 07:39 37.1 C 112 H 20 150/73 H 94
[2019-12-10] MEDS: AMITRIPTYLINE HCL 25 MG TAB PO SCH (20:14)
[2019-12-10] MEDS: LATANOPROST 0.005% OP SOLN 2.5 ML BTL OPL SCH (20:15)
[2019-12-10] MEDS: ACETAMINOPHEN 1,000 MG/100 ML VIAL IV PRN (21:28)
[2019-12-11] MEDS: INSULIN ASPART 100 UNITS/ML 3 ML PEN SC SCH ×5 (00:03→23:59)
[2019-12-11] MEDS: HEPARIN SOD 5,000 UNIT/0.5 ML VIAL SQ SCH ×3 (05:36→21:19)
--- NOTE | 2019-12-11 08:10 | XRay Report ---
XR KUB/Abdomen 1 view CLINICAL HISTORY: follow SBO bowel obstruction COMPARISON STUDY: 07/21/2019 FINDINGS: Several mildly distended loops of small bowel. Small amount of contrast within the colon. N asogastric tube within the gastric fundus. IMPRESSION: Ileus versus partial distal small bowel obstructive change. ACT 112: Negative or not required by law. The above report was generated using voice recognition software. It may contain grammatical, syntax or spelling errors. Electronically signed by: Steven Douglas M.D. 12/11/2019 8:09 AM
[2019-12-11 08:24] LABS: Albumin Level 2.5 gm/dl (3.4-5.0); BUN Creatinine Ratio 13.2 (10-20); Calcium 8.6 mg/dl (8.5-10.1); Creatinine Clr Calc Pharmacy 32.3 ml/min; Est GFR (African American) 52.2; Est GFR (Non-African American) 45.1; Potassium 3.8 mmol/L (3.5-5.1)
[2019-12-11] MEDS: LACTOBACILLUS ACIDOPHILUS (FLORANEX) TAB PO SCH ×3 (08:24→21:19)
[2019-12-11] MEDS: ESCITALOPRAM OXALATE 10 MG TAB PO SCH (08:24)
[2019-12-11] MEDS: METOPROLOL TARTRATE 25 MG TAB PO SCH ×2 (08:24→21:20)
[2019-12-11] MEDS: ROSUVASTATIN CALCIUM 20 MG TAB PO SCH (08:24)
[2019-12-11] MEDS: MULTIVITAMIN TAB PO SCH (08:25)
[2019-12-11] MEDS: AMLODIPINE BESYLATE 5 MG TAB PO SCH (08:25)
[2019-12-11] MEDS: PANTOprazole 40 MG TAB PO SCH (08:26)
[2019-12-11 08:27] LABS: Albumin Globulin Ratio 0.8 (0.9-2); Bilirubin,Total 0.4 mg/dl (0.2-1); Globulin 3.3 gm/dl (2.5-4.0); Total Protein 5.8 gm/dl (6.4-8.2)
--- NOTE | 2019-12-11 10:49 | Surgery Progress Note ---
Date of Service December 11, 2019 Assessment & Plan (1) SBO (small bowel obstruction): DDX: enteritis, metastatic disease, or chemotherapy induced enteritis?? -vitals stable - minimal NGT output in last 24 hours, 40 cc - abdomen still distended but passing small amounts of flatus and liquid st ool - KUB today showing ileus vs partial SBO, contrast seen in colon Plan: Given abdominal distention, will keep NGT this am. Will re-eval this afternoon. Needs to ambulate PT/OT consulted May clamp NGT to ambulate in hallway with assistance to increase GI motility. Continue NPO Dr. Frias was present during my examination and agrees with above. Subjective feeling better today passing gas, maybe about 4-5 times per day, liquid stool last night feels bloated but not much has not ambulated hallway or much at all has bedside commode due to NGT no n/v Physical Exam Constitutional: WD/WN, vitals as above no acute distress Respiratory: normal respiratory effort Gastrointestinal (Abdomen): Inspection/Auscultation: + abdomen distended (moderate) and normal bowel sounds Percussion/Palpation: abdomen soft; abdomen nontender, no guarding and abdomen not rigid midline laparotomy scar present Skin: no rashes, warm and dry mild ecchymosis of LLQ at site of injection Psychiatric: Orientation: alert and oriented x 3 Results & Data Vital Signs (Past 12 Hours) Vital Signs Temp Pulse Pulse Resp BP Pulse Ox 12/11/19 07:29 95 H 12/11/19 07:17 37.0 C 100 H 16 149/73 H 92 12/11/19 04:11 36.8 C 94 H 18 136/71 93 12/10/19 23:46 37.0 C 91 H 20 124/65 93 12/10/19 23:00 94 H Laboratory Results 12/11/19 12/11/19 12/11/19 Range/Units 07:52 07:52 05:32 Sodium 136 (136-145) mmol/L Potassium 3.8 D (3.5-5.1) mmol/L Chloride 104 (98-107) mmol/L Carbon Dioxide 25 (21-32) mmol/L Anion Gap 7.0 (3-11) BUN 15 (7-18) mg/dl Creatinine 1.12 (0.6-1.2) mg/dl Est Cr Clr Drug Dosing 32.3 ml/min Est GFR ( Amer) 52.2 Est GFR (Non-Af Amer) 45.1 BUN/Creatinine Ratio 13.2 (10-20) Glucose 173 H (70-99) mg/dl POC Glucose 176 H (70-99) mg/dl Lactate 0.7 (0.4-2.0) mmol/L Calcium 8.6 (8.5-10.1) mg/dl Total Bilirubin 0.4 (0.2-1) mg/dl AST 55 H (15-37) U/L ALT 31 (12-78) U/L Alkaline Phosphatase 86 (45-117) U/L Total Creatine Kinase 30 (26-192) U/L Total Protein 5.8 L (6.4-8.2) gm/dl Albumin 2.5 L (3.4-5.0) gm/dl Globulin 3.3 (2.5-4.0) gm/dl Albumin/Globulin Ratio 0.8 L (0.9-2) 12/11/19 12/11/19 12/10/19 Range/Units 00:02 00:01 17:59 Sodium (136-145) mmol/L Potassium (3.5-5.1) mmol/L Chloride (98-107) mmol/L Carbon Dioxide (21-32) mmol/L Anion Gap (3-11) BUN (7-18) mg/dl Creatinine (0.6-1.2) mg/dl Est Cr Clr Drug Dosing ml/min Est GFR ( Amer) Est GFR (Non-Af Amer) BUN/Creatinine Ratio (10-20) Glucose (70-99) mg/dl POC Glucose 186 H 185 H 212 H (70-99) mg/dl Lactate (0.4-2.0) mmol/L Calcium (8.5-10.1) mg/dl Total Bilirubin (0.2-1) mg/dl AST (15-37) U/L ALT (12-78) U/L Alkaline Phosphatase (45-117) U/L Total Creatine Kinase (26-192) U/L Total Protein (6.4-8.2) gm/dl Albumin (3.4-5.0) gm/dl Globulin (2.5-4.0) gm/dl Albumin/Globulin Ratio (0.9-2) 12/10/19 Range/Units 11:58 Sodium (136-145) mmol/L Potassium (3.5-5.1) mmol/L Chloride (98-107) mmol/L Carbon Dioxide (21-32) mmol/L Anion Gap (3-11) BUN (7-18) mg/dl Creatinine (0.6-1.2) mg/dl Est Cr Clr Drug Dosing ml/min Est GFR ( Amer) Est GFR (Non-Af Amer) BUN/Creatinine Ratio (10-20) Glucose (70-99) mg/dl POC Glucose 198 H (70-99) mg/dl Lactate (0.4-2.0) mmol/L Calcium (8.5-10.1) mg/dl Total Bilirubin (0.2-1) mg/dl AST (15-37) U/L ALT (12-78) U/L Alkaline Phosphatase (45-117) U/L Total Creatine Kinase (26-192) U/L Total Protein (6.4-8.2) gm/dl Albumin (3.4-5.0) gm/dl Globulin (2.5-4.0) gm/dl Albumin/Globulin Ratio (0.9-2) Diagnostic Findings XR KUB/Abdomen 1 view CLINICAL HISTORY: follow SBO bowel obstruction COMPARISON STUDY: 07/21/2019 FINDINGS: Several mildly distended loops of small bowel. Small amount of contrast within the colon. Nasogastric tube within the gastric fundus. IMPRESSION: Ileus versus partial distal small bowel obstructive change.
[2019-12-11] MEDS: D5W AND LACTATED RINGERS 1,000 ML IV SCH (11:26)
--- NOTE | 2019-12-11 11:33 | Hospitalist Progress Note ---
Date of Service December 11, 2019 Assessment & Plan (1) SBO (small bowel obstruction): possible Secondary to peritoneal metastasis versus ileus Metastatic breast cancer status post surgery, radiation (chemotherapy currently on hold) -admission CT chest 1. Significant interval worsening of local small bowel wall thickening in a loop of small bowel in the superior pelvis. The appearance is nonspecific and could raise concern for focal severe infectious or inflammatory enteritis, intramural hematoma, post radiation change, or focal angioedema among other etiologies. An ischemic etiology is not excluded though no pneumatosis is evident and the focal distribution may argue against this diagnosis. No perforation. 2. Resulting high-grade partial or complete small bowel obstruction. 3. Nodular infiltration of the omentum and peritoneum especially in the left upper quadrant. It is difficult to exclude peritoneal metastatic disease or peritonitis. Correlate with the patient's oncologic history. Follow-up is warranted. 4. 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 Chronic right renal atrophy. 5. Volume overload may be indicated by the ascites versus a reactive etiology. 6. Decreased right middle lobe consolidation with increased right basilar atelectasis in the setting of effusion. -NG tube was started and general surgery was consulted to follow patient with hospitalist team -12/11/2019 updates: Patient continues to have NG tube. She was able to ambulate with NG tube temporarily clamped. Patient reports abdomen pain improving. However AM KUB still showing distended small bowel loops. Patient agreeable to continue NG tube for now. Heart rates are controlled. no vomiting/ no other symptoms. Patient gave permission for daughter who is a nurse ([phone]) to be updated and this called was made to daughter. -because of multiple hospitalizations and currently being treated for small bowel obstruction, will consult [facility] oncology on jail cancer treatment plans Postobstructive diarrhea -C.difficile is negative -small bowel movements recently Acute Renal Failure secondary to vomiting, diarrhea Obstructive uropathy on CT possibly contributory - CT chest: Findings suggest bilateral ureteropelvic junction obstruction worse on the right. Chronic right renal atrophy. -no acute interventions as per urology and to simply continue IV fluids Paroxysmal Atrial Fibrillation -patient has been noted to be between normal sinus rhythm and atrial flutter -however is off anticoagulation secondary to history of rectus sheath hematoma -she was given additional metoprolol on 12/10/2019 and scheduled metoprolol being continued at this time chronic anemia -hemoglobin stable hypertension -on Amlodipine, Metoprolol hyperlipidemia -on statin Rx Type 2 diabetes -recent hemoglobin A1c of 6.20 October 2019 -on sliding scale insulin for now DVT prophylaxis with Heparin subcu DNR Admission and Anticipated Discharge Date Admission Date: December 08, 2019 Subjective Patient continues to have NG tube. She was able to ambulate with NG tube temporarily clamped. Patient reports abdomen pain improving. However AM KUB s till showing distended small bowel loops. Patient agreeable to continue NG tube for now. Heart rates are controlled. no vomiting/ no other symptoms. Patient gave permission for daughter who is a nurse ([phone]) to be updated and this called was made to daughter. Review of Systems Review of Systems: All systems reviewed & are unremarkable except as noted in Subjective Physical Exam Constitutional: comfortable Eyes: PERRL, conjunctivae normal, anicteric sclerae EOM intact bilaterally Neck: normal visual inspection Respiratory: normal respiratory effort, lungs clear to auscultation Cardiovascular: Rate/Rhythm: regular rate Gastrointestinal (Abdomen): Inspection/Auscultation: + abdomen distended Percussion/Palpation: abdomen soft Musculoskeletal: Head/Neck/Chest: normocephalic and head atraumatic Neurologic: PERRL, EOMI, accommodation nl, no face palsy, no dysarthria Psychiatric: A+Ox3, euthymic affect Results & Data Results & Data ([facility]) Vital Signs (Past 12 Hours) Vital Signs Temp Pulse Pulse Resp BP Pulse Ox 12/11/19 11:08 37.0 C 99 H 18 148/74 H 93 12/11/19 07:29 95 H 12/11/19 07:17 37.0 C 100 H 16 149/73 H 92 12/11/19 04:11 36.8 C 94 H 18 136/71 93 12/10/19 23:46 37.0 C 91 H 20 124/65 93
[2019-12-11] MEDS: ACETAMINOPHEN 1,000 MG/100 ML VIAL IV PRN ×2 (12:23→19:04)
[2019-12-11] MEDS: METOPROLOL TARTRATE 1 MG/ML VIAL IV PRN (18:50)
[2019-12-11] MEDS ORDERED: METOPROLOL TARTRATE 1 MG/ML VIAL IV STA (19:44)
[2019-12-11] MEDS: AMITRIPTYLINE HCL 25 MG TAB PO SCH (21:19)
[2019-12-11] MEDS: LATANOPROST 0.005% OP SOLN 2.5 ML BTL OPL SCH (21:20)
[2019-12-12] MEDS: D5W AND LACTATED RINGERS 1,000 ML IV SCH (04:08)
[2019-12-12] MEDS: HYDROmorphone INJ 0.5 MG/0.5 ML SYR IV PRN (04:11)
[2019-12-12] MEDS: METOPROLOL TARTRATE 1 MG/ML VIAL IV PRN (04:30)
[2019-12-12] MEDS: HEPARIN SOD 5,000 UNIT/0.5 ML VIAL SQ SCH ×3 (05:59→21:34)
[2019-12-12] MEDS: INSULIN ASPART 100 UNITS/ML 3 ML PEN SC SCH ×4 (05:59→20:39)
--- NOTE | 2019-12-12 08:09 | Hospitalist Progress Note ---
Date of Service December 12, 2019 Assessment & Plan (1) SBO (small bowel obstruction): possible Secondary to peritoneal metastasis versus ileus Metastatic breast cancer status post surgery, radiation (chemotherapy currently on hold) -admission CT chest 1. Significant interval worsening of local small bowel wall thickening in a loop of small bowel in the superior pelvis. The appearance is nonspecific and could raise concern for focal severe infectious or inflammatory enteritis, intramural hematoma, post radiation change, or focal angioedema among other etiologies. An ischemic etiology is not excluded though no pneumatosis is evident and the focal distribution may argue against this diagnosis. No perforation. 2. Resulting high-grade partial or complete small bowel obstruction. 3. Nodular infiltration of the omentum and peritoneum especially in the left upper quadrant. It is difficult to exclude peritoneal metastatic disease or peritonitis. Correlate with the patient's oncologic history. Follow-up is warranted. 4. 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 Chronic right renal atrophy. 5. Volume overload may be indicated by the ascites versus a reactive etiology. 6. Decreased right middle lobe consolidation with increased right basilar atelectasis in the setting of effusion. -NG tube was started and general surgery was consulted to follow patient with hospitalist team -12/11/2019 updates: Patient continues to have NG tube. She was able to ambulate with NG tube temporarily clamped. Patient reports abdomen pain improving. However AM KUB still showing distended small bowel loops.Patient gave permission for daughter who is a nurse ([phone]) to be updated and this called was made to daughter. -12/12/2019 update: Minimal NG tube output, no abdomen pain today, abdomen still somewhat firm, patient has had some bowel movements in recent days. patient reports that Oncology Dr. Toribio came by earlier today and spoke with her telemetry intermittently periods atrial flutter with sinus rhythm and mild tachycardia. KUB ordered. depending on KUB results, can consider small bowel follow through with contrast via NGT to ensure no obstruction. -because of multiple hospitalizations and currently being treated for small bowel obstruction, consulted [facility] oncology on professional healthcare representative cancer treatment plans, full recommendations pending Postobstructive diarrhea -C.difficile is negative -small bowel movements recently Acute Renal Failure secondary to vomiting, diarrhea Obstructive uropathy on CT possibly contributory - CT chest: Findings suggest bilateral ureteropelvic junction obstruction worse on the right. Chronic right renal atrophy. -no acute interventions as per urology and manage with IV hydration Paroxysmal Atrial Fibrillation -patient has been noted to be between normal sinus rhythm and atrial flutter -however is off anticoagulation secondary to history of rectus sheath hematoma -she was given additional metoprolol on 12/10/2019 and scheduled metoprolol being continued at this time -12/12/2019 increase scheduled metoprolol tartrate from 12.5 mg BID to 25 mg BID chronic anemia -hemoglobin stable hypertension -on Amlodipine, Metoprolol hyperlipidemia -on statin Rx Type 2 diabetes -recent hemoglobin A1c of 6.20 October 2019 -on sliding scale insulin for now DVT prophylaxis with Heparin subcu DNR Admission and Anticipated Discharge Date Admission Date: December 08, 2019 Subjective Minimal NG tube output, no abdomen pain today, abdomen still somewhat firm, patient has had some bowel movements in recent days. patient reports that Oncology Dr. Toribio came by earlier today and spoke with her telemetry intermittently periods atrial flutter with sinus rhythm and mild tachycardia no chest pain, breathing on room air, no shortness of breath. Review of Systems Review of Systems: All systems reviewed & are unremarkable except as noted in Subjective Physical Exam Constitutional: comfortable Eyes: PERRL, conjunctivae normal, anicteric sclerae EOM intact bilaterally Neck: normal visual inspection Respiratory: normal respiratory effort, lungs clear to auscultation Cardiovascular: Rate/Rhythm: + tachycardic (mild tachycardia) Gastrointestinal (Abdomen): Percussion/Palpation: + abdomen firm Musculoskeletal: Head/Neck/Chest: normocephalic and head atraumatic Neurologic: PERRL, EOMI, accommodation nl, no face palsy, no dysarthria Psychiatric: A+Ox3, euthymic affect Results & Data Results & Data ([facility]) Vital Signs (Past 12 Hours) Vital Signs Temp Pulse Pulse Resp BP BP BP 12/12/19 07:08 37.1 C 109 H 20 119/72 12/12/19 04:30 150 H 129/78 12/12/19 04:18 36.3 C L 106 H 18 147/72 H 12/12/19 01:00 99 H 12/11/19 23:36 37.1 C 121 H 18 111/68 Pulse Ox 12/12/19 07:08 94 12/12/19 04:30 05/29/20 04:18 91 12/12/19 01:00 12/11/19 23:36 91
[2019-12-12] MEDS: ROSUVASTATIN CALCIUM 20 MG TAB PO SCH (08:12)
[2019-12-12] MEDS: MULTIVITAMIN TAB PO SCH (08:12)
[2019-12-12] MEDS: ESCITALOPRAM OXALATE 10 MG TAB PO SCH (08:13)
[2019-12-12] MEDS: AMLODIPINE BESYLATE 5 MG TAB PO SCH (08:13)
[2019-12-12] MEDS: PANTOprazole 40 MG TAB PO SCH (08:13)
[2019-12-12] MEDS: LACTOBACILLUS ACIDOPHILUS (FLORANEX) TAB PO SCH ×3 (08:13→21:34)
[2019-12-12] MEDS: METOPROLOL TARTRATE 25 MG TAB PO SCH ×2 (09:00→21:34)
--- NOTE | 2019-12-12 09:10 | XRay Report ---
KUB HISTORY: follow bowel gas/ileus COMPARISON: KUB 12/11/2019. FINDINGS: Nasogastric tube terminates in the stomach. Gas and contrast seen within the nondistended c olon. A few mildly dilated small bowel loops within the midabdomen are also unchanged. These measure up to 4.5 cm in diameter. Suture material within the left mid abdomen. No renal calculi. No ureteral calculi. No pneumoperitoneum or pneumatosis. IMPRESSION: No change in the mildly dilated small bowel loops within the midabdomen. Findings favor a partial sma ll bowel obstruction. Nasogastric tube terminates in the stomach. ACT 112: Negative or not required by law. Electronically signed by: Waqas Ferrer M.D. 12/12/2019 9:09 AM
--- NOTE | 2019-12-12 09:49 | Consultation Report ---
DATE OF CONSULTATION: 12/12/2019 MEDICAL ONCOLOGY CONSULTATION REASON FOR CONSULTATION: An 84-year-old female well known to [facility] with history of metastatic breast cancer. HISTORY OF PRESENT ILLNESS: Kristina is a pleasant 84-year-old female well known to [facility], currently under my care for metastatic breast cancer. Kristina is presently receiving Ibrance in conjunction with Faslodex. Ibrance has been on hold for several weeks now because of frequent hospitalizations. Apparently, Kristina was brought to the Emergency Room after 3 days of abdominal pain followed by nausea, vomiting and watery diarrhea. CT scan of the abdomen and pelvis revealed small-bowel obstruction and NG tube has been placed. CT also suggests nodular infiltration of the omentum and peritoneum, especially in the left upper quadrant, difficult to exclude peritoneal metastatic disease or peritonitis. I have been asked to visit with Kristina to discuss how to move forward with therapeutics. I had seen her in the office between hospitalizations and plans were established to have her resume Ibrance with alternating dosing. Unfortunately, she never got a chance to start therapy as she was scheduled yesterday as a matter of fact to restart. This morning, she continues to make slow improvements. She is passing gas. Denies any pain at this time. PAST MEDICAL HISTORY: Significant for metastatic breast cancer, type 2 diabetes mellitus, hypertension, temporal arteritis, anemia of chronic disease, recent right-sided pneumonia. PAST SURGICAL HISTORY: Status post right radical mastectomy, partial colectomy, appendectomy, cataract surgery, total abdominal hysterectomy, bilateral salpingo-oophorectomy and urethropexy. MEDICATIONS: Prior to admission include Xanax 0.25 mg p.o. at bedtime p.r.n., vitamin C 500 mg p.o. daily, calcium carbonate 1 tablet p.o. b.i.d., Lexapro 10 mg p.o. daily, multivitamin 1 tablet p.o. daily, Crestor 20 mg p.o. daily, Tradjenta 5 mg p.o. daily, amitriptyline 25 mg p.o. at bedtime, amlodipine 5 mg p.o. daily, Nexium 20 mg p.o. daily, latanoprost 1 drop ophthalmic at bedtime, Zofran 4 mg p.o. q.6 hours p.r.n., Ibrance 100 mg every other day, metoprolol 100 mg p.o. b.i.d., Percocet 1 tablet p.o. q.8 hours p.r.n. ALLERGIES: INFLUENZA VIRUS VACCINE. FAMILY HISTORY: Significant for diabetes mellitus. SOCIAL HISTORY: The patient is and lives with her . She is a nonsmoker, nondrinker, non-illicit drug user. REVIEW OF SYSTEMS: GENERAL: Negative for fevers, chills or sweats. She is currently not anorexic. SKIN: No rashes or lesions. No history of dermatoses. HEENT: Negative for headaches, lightheadedness or dizziness. No visual or hearing deficits. No sinus symptoms, sore throat or dysphagia. LYMPHATICS: No history of lymphoproliferative disease. HEART: Negative for angina or palpitations. PULMONARY: Negative for shortness of breath, dyspnea or orthopnea. No cough or hemoptysis. ABDOMEN: Recent diagnosis of small-bowel obstruction. NG tube in place. Positive for flatulence, has not had any BM in a couple of days. GENITOURINARY: No hematuria, dysuria, or urinary incontinence. PSYCHIATRIC: Positive for anxiety. ENDOCRINE: Positive for diabetes mellitus. MUSCULOSKELETAL: No focal muscle weakness. No arthralgias. NEUROLOGIC: Negative for seizure, stroke, or migraine headache. HEMATOLOGIC: Positive for anemia. PHYSICAL EXAMINATION: GENERAL: A very pleasant 84-year-old female well known to my service. Awake, alert and appropriate, in no acute distress. VITAL SIGNS: Temperature 37.1, pulse 109, respiratory rate 20, blood pressure 119/72. SKIN: Warm, dry, noncyanotic without petechia, rash or ecchymosis. HEENT: Head is atraumatic, normocephalic. Eyes: PERRLA. Nares are patent without rhinorrhea or discharge. Throat clear. Tongue midline. No buccal lesions or ulcerations. NECK: Supple without JVD or thyromegaly. HEART: Tachy, but regular. LUNGS: Clear to auscultation bilaterally. ABDOMEN: Mildly distended. No rigidity or guarding. Bowel sounds are hypoactive. EXTREMITIES: Pulses and strength are equal in all 4 quadrants. No clubbing, cyanosis or edema. NEUROLOGICAL: She is awake, alert, oriented x3. LABORATORY DATA: Sodium 136, potassium 3.8, chloride 104, carbon dioxide 25, creatinine 1.12, BUN 15, AST 55, ALT 31, albumin 2.5. RADIOGRAPHIC DATA: KUB performed on 12/10 reveals ileus versus partial distal small bowel obstructive change. IMPRESSION: 1. Small-bowel obstruction. 2. Postobstructive diarrhea. 3. Acute renal insufficiency attributable to dehydration. 4. Paroxysmal atrial fibrillation. 5. Metastatic breast cancer. PLAN: Primary service asked me to provide an opinion regarding resumption of current treatment. The patient has been on Ibrance and Faslodex for several months. Unfortunately, she has been hospitalized for a variety of reasons, previously pneumonia, now with small-bowel obstruction. I had actually seen Kristina and her daughter in the office between hospitalizations and laid out a plan to continue Ibrance in alternating fashion for better tolerance. Unfortunately, that did not happen as she was hospitalized once again before restarting therapy. Thus, she needs to be optimally well before resuming therapy. I will plan to see her in the office within a week or 2 post-discharge to determine if it is prudent to resume treatment. We will continue to follow her periodically during hospitalization. I can be contacted by phone if there are any concerns. This was explained to Kristina and she has agreed to proceed as recommended. MTDD
[2019-12-12] MEDS: bisacodyL 5 MG TABEC PO SCH (12:40)
--- NOTE | 2019-12-12 14:27 | Surgery Progress Note ---
Date of Service December 12, 2019 Assessment & Plan (1) SBO (small bowel obstruction): DDX: enteritis, metastatic disease, or chemotherapy induced enteritis?? -vitals stable - minimal NGT output in last 24 hours, 40 cc - abdomen still distended, mildly improved today but passing small amounts of flatus and liquid stool - KUB today showing partial SBO, contrast and gas seen in colon however Plan: Given KUB showing gas and contrast in colon, complete obstruction is ruled out. Remove NGT, start clear liquids Dulcolax suppository PT/OT consulted Continue ambulation to increase GI motility Dr. Mclain covering this weekend Dr. Frias was present during my examination and agrees with above. Subjective feeling better passing some gas small amount of liquid stools this am no abdominal pain Physical Exam Constitutional: WD/WN, vitals as above no acute distress Respiratory: normal respiratory effort Gastrointestinal (Abdomen): Inspection/Auscultation: + abdomen distended (mild, slightly improved compared to yesterday) Percussion/Palpation: abdomen soft; abdomen nontender, no guarding and abdomen not rigid NGT with no output in canister Skin: no rashes, warm and dry Psychiatric: Orientation: alert and oriented x 3 Results & Data Vital Signs (Past 12 Hours) Vital Signs Temp Pulse Pulse Resp BP BP BP 12/12/19 07:08 37.1 C 109 H 20 119/72 12/12/19 04:30 150 H 129/78 12/12/19 04:18 36.3 C L 106 H 18 147/72 H Pulse Ox 12/12/19 07:08 94 12/12/19 04:30 12/12/19 04:18 91 Laboratory Results 12/12/19 12/12/19 12/11/19 Range/Units 11:40 05:54 23:29 POC Glucose 212 H 201 H 271 H (70-99) mg/dl 12/11/19 Range/Units 17:51 POC Glucose 269 H (70-99) mg/dl Diagnostic Findings KUB HISTORY: follow bowel gas/ileus COMPARISON: KUB 12/11/2019. FINDINGS: Nasogastric tube terminates in the stomach. Gas and contrast seen within the nondistended colon. A few mildly dilated small bowel loops within the midabdomen are also unchanged. These measure up to 4.5 cm in diameter. Suture material within the left mid abdomen. No renal calculi. No ureteral calculi. No pneumoperitoneum or pneumatosis. IMPRESSION: No change in the mildly dilated small bowel loops within the midabdomen. Findings favor a partial small bowel obstruction. Nasogastric tube terminates in the stomach.
[2019-12-12] MEDS: PROMETHAZINE HCL 12.5 MG in SODIUM CHLORIDE 0.9% 50 ML IV PRN (17:48)
[2019-12-12] MEDS ORDERED: ONDANSETRON INJ 2 MG/ML 2 ML VIAL IV STA (20:14)
[2019-12-12] MEDS: AMITRIPTYLINE HCL 25 MG TAB PO SCH (21:34)
[2019-12-12] MEDS: LATANOPROST 0.005% OP SOLN 2.5 ML BTL OPL SCH (21:34)
[2019-12-12] MEDS ORDERED: D5W AND NSS 1,000 ML IV SCH (23:00)
[2019-12-13] MEDS: PROMETHAZINE HCL 12.5 MG in SODIUM CHLORIDE 0.9% 50 ML IV PRN ×2 (00:06→08:12)
[2019-12-13] MEDS: HYDROmorphone INJ 0.5 MG/0.5 ML SYR IV PRN (01:16)
[2019-12-13] MEDS ORDERED: SODIUM CHLORIDE 0.9% 500 ML IV SCH (02:15)
[2019-12-13] MEDS: METOPROLOL TARTRATE 1 MG/ML VIAL IV PRN (04:07)
[2019-12-13] MEDS: HEPARIN SOD 5,000 UNIT/0.5 ML VIAL SQ SCH ×2 (06:22→14:25)
[2019-12-13 06:27] LABS: Basophils # (auto) 0.04 K/uL (0-0.2); Basophils % (auto) 0.4 %; Eosinophils # (auto) 0.49 K/uL (0-0.5); Eosinophils % (auto) 5.3 %; Hematocrit (blood only) 25.8 % (37-47); Hemoglobin 8.5 g/dL (12.0-16.0); Immature Granulocytes # (auto) 0.04 K/uL (0.00-0.02); Immature Granulocytes % (auto) 0.4 %; Lymphocytes # (auto) 0.89 K/uL (1.2-3.4); Lymphocytes % (auto) 9.6 %; Mean Corpuscular Hgb Conc 32.9 g/dL (32-36); Mean Platelet Volume 8.9 fL (7.4-10.4); Monocytes % (auto) 9.8 %; Neutrophils # (auto) 6.87 K/uL (1.4-6.5); Neutrophils % (auto) 74.5 %; Platelet Count 290 K/uL (130-400); RDW Coefficient of Variation 15.5 % (11.5-14.5); RDW Standard Deviation 55.6 fL (36.4-46.3); Red Blood Count 2.66 M/uL (4.2-5.4); White Blood Count 9.23 K/uL (4.8-10.8)
[2019-12-13 07:05] LABS: Albumin Level 2.6 gm/dl (3.4-5.0); BUN Creatinine Ratio 11.8 (10-20); Calcium 8.1 mg/dl (8.5-10.1); Creatinine Clr Calc Pharmacy 27.4 ml/min; Est GFR (African American) 42.8; Magnesium 1.6 mg/dl (1.8-2.4); Potassium 3.4 mmol/L (3.5-5.1)
[2019-12-13 07:07] LABS: Albumin Globulin Ratio 0.8 (0.9-2); Bilirubin,Total 0.8 mg/dl (0.2-1); Globulin 3.3 gm/dl (2.5-4.0); Phosphorus 2.8 mg/dl (2.5-4.9); Total Protein 5.9 gm/dl (6.4-8.2)
[2019-12-13] MEDS ORDERED: MAGNESIUM OXIDE 400 MG TAB PO SCH (08:00)
[2019-12-13] MEDS ORDERED: IBUPROFEN 200 MG TAB PO PRN (08:08)
--- NOTE | 2019-12-13 08:08 | Hospitalist Progress Note ---
Date of Service December 13, 2019 Assessment & Plan (1) SBO (small bowel obstruction): possible Secondary to peritoneal metastasis versus ileus Metastatic breast cancer status post surgery, radiation (chemotherapy currently on hold) -admission CT chest 1. Significant interval worsening of local small bowel wall thickening in a loop of small bowel in the superior pelvis. The appearance is nonspecific and could raise concern for focal severe infectious or inflammatory enteritis, intramural hematoma, post radiation change, or focal angioedema among other etiologies. An ischemic etiology is not excluded though no pneumatosis is evident and the focal distribution may argue against this diagnosis. No perforation. 2. Resulting high-grade partial or complete small bowel obstruction. 3. Nodular infiltration of the omentum and peritoneum especially in the left upper quadrant. It is difficult to exclude peritoneal metastatic disease or peritonitis. Correlate with the patient's oncologic history. Follow-up is warranted. 4. 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 Chronic right renal atrophy. 5. Volume overload may be indicated by the ascites versus a reactive etiology. 6. Decreased right middle lobe consolidation with increased right basilar atelectasis in the setting of effusion. -NG tube was started and general surgery was consulted to follow patient with hospitalist team -12/11/2019 updates: Patient continues to have NG tube. She was able to ambulate with NG tube temporarily clamped. Patient reports abdomen pain improving. However AM KUB still showing distended small bowel loops.Patient gave permission for daughter who is a nurse ([phone]) to be updated and this called was made to daughter. -12/12/2019 update: Minimal NG tube output, no abdomen pain today, abdomen still somewhat firm, patient has had some bowel movements in recent days. patient reports that Oncology Dr. Toribio came by earlier today and spoke with her (no acute hematology plans for cancer treatment until outpatient follow up after this hospital stay. telemetry intermittently periods atrial flutter with sinus rhythm and mild tachycardia. patient had NG tube removed by general surgery team. patient ate liquid diet for dinner and subsequent vomiting 30 minutes later -12/13/2019 conservative management at this time with clear liquid diet, prn anti-emetics, increase bowel regimen, work on heart rate control, work on serum magnesium levels, work up for transaminitis, discontinued acetaminophen Postobstructive diarrhea -C.difficile is negative -small bowel movements recently Acute Renal Failure secondary to vomiting, diarrhea Obstructive uropathy on CT possibly contributory - CT chest: Findings suggest bilateral ureteropelvic junction obstruction worse on the right. Chronic right renal atrophy. -no acute interventions as per urology and manage with IV hydration -recent fluctuations with creatinine but generally under 1.5 Paroxysmal Atrial Fibrillation -patient has been noted to be between normal sinus rhythm and atrial flutter -however is off anticoagulation secondary to history of rectus sheath hematoma -she was given additional metoprolol on 12/10/2019 and scheduled metoprolol being continued at this time -12/12/2019 increase scheduled metoprolol tartrate from 12.5 mg BID to 25 mg BID -12/13/2019 increase scheduled metoprolol tartrate from 25 mg BID to TID for the atrial fibrillation with rapid ventricular response, request cardiology consult Hypomagnesemia -serum magnesium 1.6 on 12/13/2019, give oral and IV magnesium and reheck Transaminitis -rising AST/ALT noted on 12/13/2019 -avoid acetaminophen -obtain ultrasound of gallbladder chronic anemia -hemoglobin stable between high 7s and mid 8 ranges hypertension -on Amlodipine, Metoprolol hyperlipidemia -on statin Rx Type 2 diabetes -recent hemoglobin A1c of 6.20 October 2019 -on sliding scale insulin for now DVT prophylaxis with Heparin subcu DNR Daughter Elaina Admission and Anticipated Discharge Date Admission Date: December 08, 2019 Subjective on 12/13/2019 patient had NG tube removed by general surgery team and patient ate liquid diet for dinner and subsequent vomiting 30 minutes later patient did not have breakfast yet, telemetry shows atrial fibrillation with RVR. night time doctor gave extra dose of Lopressor. patient denies chest pain. No palpitations. no shortness of breath when at rest. generally comfortable and calm and speaking with medical doctor. no headache. no dizziness. Review of Systems Review of Systems: All systems reviewed & are unremarkable except as noted in Subjective Physical Exam Constitutional: comfortable Eyes: PERRL, conjunctivae normal, anicteric sclerae EOM intact bilaterally ENMT: external ear and nose normal, oropharynx normal Neck: normal visual inspection Respiratory: normal respiratory effort, lungs clear to auscultation Cardiovascular: Rate/Rhythm: + tachycardic (mild tachycardia) Gastrointestinal (Abdomen): Inspection/Auscultation: abdomen normal to inspection Musculoskeletal: Head/Neck/Chest: normocephalic and head atraumatic Neurologic: PERRL, EOMI, accommodation nl, no face palsy, no dysarthria Psychiatric: A+Ox3, euthymic affect Results & Data Results & Data ([facility]) Vital Signs (Past 12 Hours) Vital Signs Temp Pulse Pulse Resp BP BP BP 12/13/19 07:56 36.4 C L 66 16 134/76 12/13/19 04:07 130 H 112/70 12/13/19 03:58 112/70 12/13/19 03:17 36.5 C 124 H 22 101/67 12/13/19 01:50 130 H 98/60 L 12/12/19 22:54 37.2 C 109 H 16 117/64 12/12/19 21:30 120 H 106/62 Pulse Ox 12/13/19 07:56 94 12/13/19 04:07 12/13/19 03:58 12/13/19 03:17 91 12/13/19 01:50 12/12/19 22:54 94 12/12/19 21:30
[2019-12-13] MEDS ORDERED: HYDROmorphone INJ 0.5 MG/0.5 ML SYR IV PRN (08:09)
[2019-12-13] MEDS: ESCITALOPRAM OXALATE 10 MG TAB PO SCH (08:50)
[2019-12-13] MEDS: LACTOBACILLUS ACIDOPHILUS (FLORANEX) TAB PO SCH ×2 (08:50→14:25)
[2019-12-13] MEDS: PANTOprazole 40 MG TAB PO SCH (08:51)
[2019-12-13] MEDS: MULTIVITAMIN TAB PO SCH (08:51)
[2019-12-13] MEDS: ROSUVASTATIN CALCIUM 20 MG TAB PO SCH (08:51)
[2019-12-13] MEDS: AMLODIPINE BESYLATE 5 MG TAB PO SCH (08:52)
[2019-12-13] MEDS: MAGNESIUM SULFATE / D5W 1 GM/100 ML BAG IV SCH ×2 (08:57→08:58)
[2019-12-13] MEDS ORDERED: METOPROLOL TARTRATE 25 MG TAB PO SCH (09:00)
[2019-12-13] MEDS: INSULIN ASPART 100 UNITS/ML 3 ML PEN SC SCH ×4 (09:01→22:25)
--- NOTE | 2019-12-13 09:04 | Cardiology Consultation ---
Date of Consultation December 13, 2019 Assessment & Plan (1) Paroxysmal atrial fibrillation: (2) Atrial flutter: (3) Hypokalemia: (4) Hypomagnesemia: (5) Small bowel obstruction: Recurrent atrial fibrillation/flutter noted in the setting of small bowel obstruction and beta-moni withdrawal. Recommend increasing beta-moni to her outpatient dose, 100 mg twice daily. I have ordered 75 mg of oral metoprolol tartrate now. We will continue to monitor telemetry closely. Patient treated with amiodarone in the past. If rhythm does not stabilize with titration of beta-moni, I will consider IV amiodarone during hospitalization. Risk outweighs benefit for long-term anticoagulation with relative contraindications including history of resting sheath hematoma, frailty, and fall risk. Supplement potassium and magnesium as indicated. Thank you for allowing me to participate in the care of your patient. I will continue to follow closely during hospitalization. History of Present Illness Reason for Consultation: Atrial fibrillation Requesting Physician: Dr. Armstrong Attending Physician: Shelton Armstrong MD History of Present Illness 84-year-old patient presented to the emergency department with abdominal discomfort, nausea, and vomiting. Diagnosed with small bowel obstruction. NG tube removed yesterday. Patient carries history of paroxysmal atrial fibrillation and flutter. Yesterday patient developed several episodes of atrial fibrillation/flutter with rapid ventricular response. Heart rates as high as 130 bpm recorded. Beta-moni dose reduced to 12.5 mg twice daily on admission. Her outpatient dose is 100 mg twice daily. No significant hypot ension or bradycardia recorded during hospitalization. Currently patient complains of abdominal discomfort. Denies nausea or vomiting this morning although, she received a dose of Phenergan. See if 25 mg of oral metoprolol this morning. Currently telemetry demonstrates atrial fibrillation at a rate of 130 bpm. Patient reports mild conversational dyspnea. No chest discomfort or heaviness. Notes rare palpitations. Evaluated by the undersigned last month due to paroxysmal atrial fibrillation in the setting of pancytopenia and neutropenic fever. Patient is not chronically anticoagulated due to fall risk, frailty, chronic anemia, and history of rectus sheath hematoma. Allergies Allergy/AdvReac Type Severity Reaction Status Date / Time Influenza Virus Vaccines Allergy Mild SWELLING Verified 12/08/19 14:55 Home Medications Home Medications Medication Instructions Recorded Confirmed Type alprazolam [Xanax] 0.25 mg PO HS PRN 03/28/18 12/08/19 History ascorbic acid (vitamin C) [Vitamin 500 mg PO QAM 03/28/18 12/08/19 History C] calcium carbonate-vitamin D3 1 tab PO BID 03/28/18 12/08/19 History [Os-Arcadio 500 + D3] escitalopram oxalate [Lexapro] 10 mg PO QAM 03/28/18 12/08/19 History multivitamin 1 tab PO QAM 03/28/18 12/08/19 History rosuvastatin [Crestor] 20 mg PO QAM 03/28/18 12/08/19 History Tradjenta 5 mg PO QAM 07/07/19 12/08/19 History cranberry 400 mg PO QAM 07/07/19 12/08/19 History amitriptyline 25 mg PO HS 07/12/19 12/08/19 History amlodipine 5 mg PO QAM 07/12/19 12/08/19 History esomeprazole magnesium [Nexium] 20 mg PO QAM 07/12/19 12/08/19 History latanoprost 1 drp OPL HS 07/12/19 12/08/19 History ondansetron HCl [Zofran] 4 mg PO Q6H PRN 07/12/19 12/08/19 History Ibrance 100 mg PO DAILY 10/01/19 12/08/19 History metoprolol tartrate 100 mg PO BID 10/01/19 12/08/19 History oxycodone-acetaminophen [Percocet] 1 tab PO Q8H PRN 10/01/19 12/08/19 History diphenhydramine-acetaminophen 1 tab PO HS PRN 11/24/19 12/08/19 History [Tylenol PM Extra Strength] Lactobacillus acidoph-L.bulgar 1 tab PO TID #30 tab 11/26/19 12/08/19 Rx [Lactinex] Patient History Medical History Acute hypoxemic respiratory failure Anxiety Arthritis Atrial tachycardia Cataracts, bilateral CKD (chronic kidney disease), stage III DM type 2 (diabetes mellitus, type 2) Dyslipidemia Goals of care, counseling/discussion HTN (hypertension) HX: breast cancer Metastatic breast cancer Paroxysmal atrial fibrillation S/P admission to ICU (intensive care unit) Temporal arteritis Surgical History H/O right mastectomy Jun 2018 History of appendectomy History of cataract surgery S/P partial colectomy Jul 2019 S/P LIZBETH-BSO Family History Mother Diabetes Social History Preferred Language: Macedonian Communication Ability: Effective 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 Beliefs That Will Affect Care: None marital status: Current Living Situation: Spouse Current Living Situation Comment: lives with Feels Safe at Home: Yes Smoking Status: Never smoker Hx Alcohol Use: No Hx Substance Use: No Review of Systems Review of Systems: All systems reviewed & are unremarkable except as noted in HPI & below Physical Exam Constitutional: well developed, well nourished and + ill appearing; no acute distress Respiratory: no respiratory distress, no labored breathing, no retractions and no cough Auscultation: no crackles, no rales, no rhonchi and no wheezes Cardiovascular: Rate/Rhythm: + tachycardic and + irregularly irregular Heart Sounds: normal S1 and normal S2; no murmur Vessels: no JVD Extremities: no edema Gastrointestinal (Abdomen): Inspection/Auscultation: + abdomen distended; + abnormal bowel sounds Percussion/Palpation: + abdomen tender; no guarding and abdomen not rigid Musculoskeletal: Head/Neck/Chest: normocephalic and head atraumatic Skin: no rashes, warm and dry Neurologic: moves all extremities; no focal motor deficits Speech / Cognition: normal speech Psychiatric: A+Ox3, euthymic affect Results & Data ([facility]) Vital Signs (Past 12 Hours) Vital Signs Temp Pulse Pulse Resp BP BP BP 12/13/19 07:56 36.4 C L 66 16 134/76 12/13/19 04:07 130 H 112/70 12/13/19 03:58 112/70 12/13/19 03:17 36.5 C 124 H 22 101/67 12/13/19 01:50 130 H 98/60 L 12/12/19 22:54 37.2 C 109 H 16 117/64 12/12/19 21:30 120 H 106/62 Pulse Ox 12/13/19 07:56 94 12/13/19 04:07 12/13/19 03:58 12/13/19 03:17 91 12/13/19 01:50 12/12/19 22:54 94 12/12/19 21:30 (1) Atrial flutter Atrial flutter type: unspecified Qualified Code(s): I48.92 - Unspecified atrial flutter
[2019-12-13] MEDS ORDERED: METOPROLOL TARTRATE 25 MG TAB PO ONE (09:15)
[2019-12-13] MEDS: bisacodyL 5 MG TABEC PO SCH (10:07)
[2019-12-13] MEDS: POTASSIUM CHLORIDE / WTR 10 MEQ/100 ML PLCT IV SCH ×2 (10:07→10:10)
[2019-12-13] MEDS: TRAMADOL HCL 50 MG TABLET PO PRN ×2 (10:13→14:27)
--- NOTE | 2019-12-13 11:01 | Ultrasound Report ---
Biliary ultrasound CLINICAL HISTORY: elevated liver enzymes COMPARISON STUDY: CT scan dated 12/08/2019 FINDINGS: No focal hepatic masses are visualized. There are bright portal triads, a nonspecific finding. There is no evidence of intra or extrahepatic biliary ductal dilatation. The common bile duct measures 6 mm . Pancreas is obscured evaluation is nondiagnostic. There is right-sided hydronephrosis. The gallbladder is mildly distended with echogenic sludge. There is minimal gallbladder wall thickeni ng. No shadowing calculi were visualized. The technologist reports a negative sonographic Magallanes sign . There is moderate ascites. Several fluid-filled bowel loops are evident. IMPRESSION: 1. Mildly distended gallbladder containing sludge. There is minimal gallbladder wall thickening. The technologist reports a negative sonographic Magallanes sign 2. No focal hepatic masses. No evidence of ductal dilatation 3. Nondiagnostic evaluation of pancreas 4. Right-sided hydronephrosis 5. Ascites ACT 112: Negative or not required by law. Electronically signed by: Shun Blanchard M.D. 12/13/2019 10:59 AM
[2019-12-13] MEDS ORDERED: AMIODARONE IV BOLUS & DRIP IV STA (11:12)
[2019-12-13] MEDS ORDERED: STAT IV Infusion **Titration per Protocol STA (11:12)
[2019-12-13] MEDS ORDERED: 0.2 MICRON FILTER SET 1 EA IV ONE (11:12)
[2019-12-13] MEDS ORDERED: AMIODARONE / D5W 150 MG/100 ML BAG IV ONE (11:30)
[2019-12-13] MEDS: AMIODARONE 450 MG in D5W 250ML IN *POLYOLEFIN BAG* 241 ML IV SCH ×2 (12:19→20:41)
[2019-12-13 14:19] LABS: Albumin Level 2.5 gm/dl (3.4-5.0); BUN Creatinine Ratio 11.8 (10-20); Calcium 8.3 mg/dl (8.5-10.1); Creatinine Clr Calc Pharmacy 25.5 ml/min; Est GFR (African American) 39.2; Est GFR (Non-African American) 33.8; Magnesium 2.5 mg/dl (1.8-2.4); Potassium 3.8 mmol/L (3.5-5.1)
[2019-12-13 14:22] LABS: Albumin Globulin Ratio 0.7 (0.9-2); Bilirubin,Total 0.5 mg/dl (0.2-1); Globulin 3.6 gm/dl (2.5-4.0); Total Protein 6.1 gm/dl (6.4-8.2)
[2019-12-13] MEDS ORDERED: PROMETHAZINE HCL 12.5 MG/10 ML UDP PO PRN (14:42)
--- NOTE | 2019-12-13 15:46 | Surgery Progress Note ---
Date of Service December 13, 2019 Assessment & Plan (1) SBO (small bowel obstruction): recurrent symptoms after NGT pulled. will make NPO and recheck KUB d/w nursing, if any further emesis, they are to replace NGT gallbladder US reviewed...I believe her primary issue is SBO. Subjective pt seen. transferred to [facility] for tachycardia. c/o of n/v after NGT pulled. she did have a loose bm last night. minimal abdominal discomfort. she does st ate the nausea is better now than earlier today. Physical Exam Physical Exam: alert. nad abd: ++ distended. minimal/mild tenderness. no g/r/r Results & Data Vital Signs (Past 12 Hours) Vital Signs Temp Pulse Pulse Resp BP BP BP 12/13/19 12:15 36.4 C L 142 H 16 103/71 12/13/19 11:52 36.6 C 55 L 18 97/66 L 12/13/19 07:56 36.4 C L 66 16 134/76 12/13/19 04:07 130 H 112/70 12/13/19 03:58 112/70 Pulse Ox 12/13/19 12:15 92 12/13/19 11:52 92 12/13/19 07:56 94 12/13/19 04:07 12/13/19 03:58 PG Care Time/CCT Total # of Minutes Spent Total Time Spent with Patient: Total time spent is greater than 50% in coordination of care (as documented) at patient's floor/unit and/or counseling patient: Coding Level of Care Code 60414 Subseq Hosp Care Lvl 3 Diagnoses SBO (small bowel obstruction) K56.609
--- NOTE | 2019-12-13 16:48 | XRay Report ---
XR KUB/Abdomen 1 view CLINICAL HISTORY: Small bowel obstruction COMPARISON STUDY: 12/12/2019 FINDINGS: There are persistent dilated small bowel loops measuring up to 52 mm in diameter. The colon is relatively decompressed. The findings are again compatible with a small bowel obstruction. The pr eviously identified nasogastric tube is not visualized on the 2 provided images. IMPRESSION: Persistent small bowel obstructive pattern with slight further dilatation of small bowel loops. ACT 112: Negative or not required by law. Electronically signed by: Shun Blanchard M.D. 12/13/2019 4:47 PM
[2019-12-13] MEDS ORDERED: PROMETHAZINE HCL 6.25 MG in SODIUM CHLORIDE 0.9% 50 ML IV PRN (16:59)
[2019-12-13] MEDS ORDERED: KETOROLAC TROMETHAMINE 15 MG/ML VIAL IV PRN (17:00)
[2019-12-13] MEDS ORDERED: AMIODARONE RATE CHANGE ONE (17:40)
[2019-12-13] MEDS: D5W AND 1/2NSS 1,000 ML IV SCH (17:44)
[2019-12-13] MEDS: LATANOPROST 0.005% OP SOLN 2.5 ML BTL OPL SCH (20:43)
[2019-12-13] MEDS ORDERED: Nursing to Pharmacy Communication ONE (21:48)
[2019-12-14] MEDS: INSULIN ASPART 100 UNITS/ML 3 ML PEN SC SCH ×4 (00:26→18:01)
[2019-12-14] MEDS ORDERED: SODIUM CHLORIDE 0.9% 1000ML 250 ML IV ONE ×2 (06:50→08:58)
--- NOTE | 2019-12-14 07:36 | Electrocardiogram Report ---
Test Reason : Blood Pressure : / mmHG Vent. Rate : 133 BPM Atrial Rate : 288 BPM P-R Int : 000 ms QRS Dur : 092 ms QT Int : 346 ms P-R-T Axes : 000 -17 146 degrees QTc Int : 514 ms Atrial flutter with variable A-V block with premature ventricular or aberrantly conducted complexes Nonspecific ST and T wave abnormality Abnormal ECG When compared with ECG of 08-DEC-2019 15:42, Atrial flutter has replaced Sinus rhythm Vent. rate has increased BY 56 BPM Nonspecific T wave abnormality now evident in Inferior leads Confirmed by Dayron Gallego ([id number]) on 12/14/2019 7:36:00 AM Referred By: REFERRED SELF Confirmed By:Dayron Gallego
--- NOTE | 2019-12-14 07:46 | Electrocardiogram Report ---
Test Reason : Blood Pressure : / mmHG Vent. Rate : 087 BPM Atrial Rate : 087 BPM P-R Int : 174 ms QRS Dur : 092 ms QT Int : 420 ms P-R-T Axes : 000 198 165 degrees QTc Int : 505 ms Suspect arm lead reversal, interpretation assumes no reversal Normal sinus rhythm Abnormal ECG When compared with ECG of 13-DEC-2019 09:59, (unconfirmed) Sinus rhythm has replaced Atrial flutter Vent. rate has decreased BY [address] no longer depressed in Lateral leads Confirmed by Dayron Gallego ([id number]) on 12/14/2019 7:46:03 AM Referred By: REFERRED SELF Confirmed By:Dayron Gallego
--- NOTE | 2019-12-14 07:55 | XRay Report ---
XR KUB/Abdomen 1 view CLINICAL HISTORY: Small bowel obstruction COMPARISON STUDY: 12/13/2019 FINDINGS: There is a nasogastric tube within the stomach. There is persistent small bowel dilatation with small bowel loops measuring up to 5.4 cm in diameter.. IMPRESSION: Persistent small bowel obstructive pattern. Nasogastric tube within the stomach. ACT 112: Negative or not required by law. Electronically signed by: Shun Blanchard M.D. 12/14/2019 7:54 AM
[2019-12-14 08:36] LABS: Albumin Level 2.4 gm/dl (3.4-5.0); BUN Creatinine Ratio 11.2 (10-20); Calcium 8.2 mg/dl (8.5-10.1); Creatinine Clr Calc Pharmacy 18.4 ml/min; Est GFR (African American) 26.4; Est GFR (Non-African American) 22.8; Magnesium 2.2 mg/dl (1.8-2.4)
[2019-12-14] MEDS: D5W AND 1/2NSS 1,000 ML IV SCH (08:37)
[2019-12-14] MEDS: AMIODARONE 450 MG in D5W 250ML IN *POLYOLEFIN BAG* 241 ML IV SCH (08:38)
[2019-12-14 08:41] LABS: Albumin Globulin Ratio 0.7 (0.9-2); Bilirubin,Total 0.5 mg/dl (0.2-1); Globulin 3.3 gm/dl (2.5-4.0); Total Protein 5.7 gm/dl (6.4-8.2)
--- NOTE | 2019-12-14 09:06 | Hospitalist Progress Note ---
Date of Service December 14, 2019 Assessment & Plan (1) SBO (small bowel obstruction): possible Secondary to peritoneal metastasis versus ileus Metastatic breast cancer status post surgery, radiation (chemotherapy currently on hold) -admission CT chest 1. Significant interval worsening of local small bowel wall thickening in a loop of small bowel in the superior pelvis. The appearance is nonspecific and could raise concern for focal severe infectious or inflammatory enteritis, intramural hematoma, post radiation change, or focal angioedema among other etiologies. An ischemic etiology is not excluded though no pneumatosis is evident and the focal distribution may argue against this diagnosis. No perforation. 2. Resulting high-grade partial or complete small bowel obstruction. 3. Nodular infiltration of the omentum and peritoneum especially in the left upper quadrant. It is difficult to exclude peritoneal metastatic disease or peritonitis. Correlate with the patient's oncologic history. Follow-up is warranted. 4. 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 Chronic right renal atrophy. 5. Volume overload may be indicated by the ascites versus a reactive etiology. 6. Decreased right middle lobe consolidation with increased right basilar atelectasis in the setting of effusion. -NG tube was started and general surgery was consulted to follow patient with hospitalist team -12/11/2019 updates: Patient continues to have NG tube. She was able to ambulate with NG tube temporarily clamped. Patient reports abdomen pain improving. However AM KUB still showing distended small bowel loops.Patient gave permission for daughter who is a nurse ([phone]) to be updated and this called was made to daughter. -12/12/2019 update: Minimal NG tube output, no abdomen pain today, abdomen still somewhat firm, patient has had some bowel movements in recent days. patient reports that Oncology Dr. Toribio came by earlier today and spoke with her (no acute hematology plans for cancer treatment until outpatient follow up after this hospital stay. telemetry intermittently periods atrial flutter with sinus rhythm and mild tachycardia. patient had NG tube removed by general surgery team. patient ate liquid diet for dinner and subsequent vomiting 30 minutes later -12/13/2019: NG tube replaced as mildly more dilated small bowels on KUB. pain medications modified to eliminate all narcotics all together if abdominal pain. avoided acetaminophen because of transaminitis. limited pain medication to Toradol -12/14/2019: There is a nasogastric tube within the stomach. There is persistent small bowel dilatation with small bowel loops measuring up to 5.4 cm in diameter. AST and ALT improving but more SOLITARIO likely because of Toradol. will go back to acetaminophen prn. patient's daughter has been concerned about poor nutritional status despite recent D5 in IV hydration when patient on NG tube and has inquired about possible parental nutrition. 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 Chronic right renal atrophy. -no acute interventions as per urology and manage with IV hydration -recent fluctuations with creatinine but generally under 1.5 as of 12/13/2019 -creatinine elevated to be 1.97 on 12/14/2019, patient on IV fluids with dextrose for nutrition and hydration and to receive a total of 2 IV fluid boluses of 250 ml each. will stop Toradol from pain medication list Paroxysmal Atrial Fibrillation -patient has been noted to be between normal sinus rhythm and atrial flutter on this admission, however is off anticoagulation secondary to history of rectus sheath hematoma -metoprolol was titrated up when on NG tube on initially on this admission, but patient needed IV amiodarone which was started on 12/13/2019 to convert back to sinus rhythm from atrial flutter/atrial fibrillation with rapid ventricular response. converted at 2:45 PM on 12/13/2019 and cardiology service advised to have IV amiodarone still running. will defer to cardiology on heart rate and rhythm management Hypomagnesemia -serum magnesium 1.6 on 12/13/2019, give oral and IV magnesium and serum magnesium corrected Transaminitis -rising AST/ALT noted on 12/13/2019 -ultrasound of gallbladder 12/14/2019: Mildly distended gallbladder containing sludge. There is minimal gallbladder wall thickening. The technologist reports a negative sonographic Magallanes sign. No focal hepatic masses. No evidence of ductal dilatation. Nondiagnostic evaluation of pancreas. Right-sided hydronephrosis. Ascites -minimize acetaminophen to 650 mg IV q8 hours for pain or fever chronic anemia -hemoglobin stable between high 7s and mid 8 ranges hypertension -blood pressure is not hypertensive, hold the amlodipine hyperlipidemia -on statin Rx Type 2 diabetes -recent hemoglobin A1c of 6.20 October 2019 -on sliding scale insulin for now DVT prophylaxis with SCDs DNR Daughter Elaina Admission and Anticipated Discharge Date Admission Date: December 08, 2019 Subjective patient remains sinus rhythm with IV amiodarone running. less urine output on recent shift but no urinary retention. patient abdomen still firm but patient reports that with NG tube, the abdomen is less firm. no acute distress. no chest pain. no shortness of breath. no dizziness. no headache. Review of Systems Review of Systems: All systems reviewed & are unremarkable except as noted in Subjective Physical Exam Constitutional: comfortable Eyes: PERRL, conjunctivae normal, anicteric sclerae EOM intact bilaterally ENMT: external ear and nose normal, oropharynx normal Neck: normal visual inspection Respiratory: normal respiratory effort, lungs clear to auscultation Cardiovascular: Rate/Rhythm: regular rate and regular rhythm Gastrointestinal (Abdomen): Inspection/Auscultation: abdomen normal to inspection Percussion/Palpation: + abdomen firm Musculoskeletal: Head/Neck/Chest: normocephalic and head atraumatic Neurologic: PERRL, EOMI, accommodation nl, no face palsy, no dysarthria Psychiatric: A+Ox3, euthymic affect Results & Data Results & Data ([facility]) Vital Signs (Past 12 Hours) Vital Signs Temp Pulse Pulse Resp BP Pulse Ox 12/14/19 07:59 36.6 C 84 18 93/54 L 91 12/14/19 07:21 82 12/14/19 04:23 36.4 C L 80 16 91/51 L 94 12/14/19 00:37 37.3 C 91 H 18 91/55 L 92 12/14/19 00:00 102 H
[2019-12-14] MEDS ORDERED: ACETAMINOPHEN 65 ML IV PRN (09:10)
--- NOTE | 2019-12-14 10:32 | Surgery Progress Note ---
Date of Service December 14, 2019 Assessment & Plan (1) SBO (small bowel obstruction): persistent SBO will need to address nutrition soon will defer to [facility] surgeons regarding ? SBFT vs operative intervention in near future. Subjective pt had ngt re-placed last night. feeling better since then. less nausea/pain/distension. no bm but +flatus. Physical Exam Physical Exam: alert. nad abd: much less distension than yesterday. soft. nt. Results & Data Vital Signs (Past 12 Hours) Vital Signs Temp Pulse Pulse Resp BP Pulse Ox 12/14/19 07:59 36.6 C 84 18 93/54 L 91 12/14/19 07:21 82 12/14/19 04:23 36.4 C L 80 16 91/51 L 94 12/14/19 00:37 37.3 C 91 H 18 91/55 L 92 12/14/19 00:00 102 H PG Care Time/CCT Total # of Minutes Spent Total Time Spent with Patient: Total time spent is greater than 50% in coordination of care (as documented) at patient's floor/unit and/or counseling patient: Coding Level of Care Code 72636 Subseq Hosp Care Lvl 3 Diagnoses SBO (small bowel obstruction) K56.609
--- NOTE | 2019-12-14 12:06 | Electrocardiogram Report ---
Test Reason : Blood Pressure : / mmHG Vent. Rate : 088 BPM Atrial Rate : 088 BPM P-R Int : 000 ms QRS Dur : 076 ms QT Int : 432 ms P-R-T Axes : 000 004 015 degrees QTc Int : 522 ms Poor data quality, interpretation may be adversely affected Sinus rhythm Low voltage QRS Nonspecific ST and T wave abnormality Abnormal ECG When compared with ECG of 13-DEC-2019 16:17, Prior tracing has arm lead reversal Confirmed by Dayron Gallego ([id number]) on 12/14/2019 12:05:48 PM Referred By: REFERRED SELF Confirmed By:Dayron Gallego
--- NOTE | 2019-12-14 12:06 | Cardiology Progress Note ---
Date of Service December 14, 2019 Assessment & Plan (1) Paroxysmal atrial fibrillation: (2) Atrial flutter: (3) Hypokalemia: (4) Hypomagnesemia: (5) Small bowel obstruction: Patient converted to sinus rhythm yesterday at approximately 3 PM. Currently n.p.o. with NG tube in place due to small bowel obstruction. Recommend continuing IV amiodarone for rhythm control at this time. I will reorder metoprolol at reduced dose, 25 mg 3 times daily. IV hydration/nutrition as per internal medicine. As previously noted: Risk outweighs benefit for long-term anticoagulation with relative contraindications including history of resting sheath hematoma, frailty, and fall risk. Supplement potassium and magnesium as indicated. Subjective Patient seen and examined the bedside. NG tube reinserted yesterday due to small bowel obstruction. Patient has not received any oral medications today. IV amiodarone infusing. She remains in sinus rhythm with elevated heart rate this morning. Blood pressure remains borderline hypotensive. She reports abdominal discomfort. No nausea this morning. Denies chest pain, palpitations, or shortness of breath. Review of Systems Review of Systems: All systems reviewed & are unremarkable except as noted in HPI & below Physical Exam Constitutional: well developed, well nourished and + ill appearing; no acute distress Respiratory: no respiratory distress, no labored breathing, no retractions and no cough Auscultation: no crackles, no rales, no rhonchi and no wheezes Cardiovascular: Rate/Rhythm: regular rhythm and + tachycardic Heart Sounds: normal S1 and normal S2; no murmur Vessels: no JVD Extremities: no edema Gastrointestinal (Abdomen): Inspection/Auscultation: + abdomen distended; + abnormal bowel sounds Percussion/Palpation: + abdomen tender; no guarding and abdomen not rigid Musculoskeletal: Head/Neck/Chest: normocephalic and head atraumatic Skin: no rashes, warm and dry Neurologic: moves all extremities; no focal motor deficits Speech / Cognition: normal speech Psychiatric: A+Ox3, euthymic affect Results & Data Vital Signs (Past 12 Hours) Vital Signs Temp Pulse Pulse Resp BP Pulse Ox 12/14/19 07:59 36.6 C 84 18 93/54 L 91 12/14/19 07:21 82 12/14/19 04:23 36.4 C L 80 16 91/51 L 94 12/14/19 00:37 37.3 C 91 H 18 91/55 L 92 (1) Atrial flutter Atrial flutter type: unspecified Qualified Code(s): I48.92 - Unspecified atrial flutter
[2019-12-14] MEDS: METOPROLOL TARTRATE 25 MG TAB PO SCH ×2 (13:31→21:12)
--- NOTE | 2019-12-14 14:12 | Pharmacy Report ---
Pharmacy PN Initial Consult - Date of Service December 14, 2019 - Scope Pharmacy has been consulted to manage parenteral nutrition orders and order appropriate labs. As part of the Nutrition Support Team guidelines, pharmacy will work in conjunction with dietary when determining the patients caloric needs. - Subjective The patient is a 84 year old F admitted on 12/08/19 21:18 for ARF SBO IV BBLOCKER. Patient is to receive parenteral nutrition for SBO. Pertinent PMH: - Objective Height: 5 ft 4 in Weight: 60.9 kg Diet: NPO Vascular Access:: PICC line placed today Intake & Output (Last 24Hrs): Intake & Output 12/12/19 12/13/19 12/14/19 12/15/19 06:59 06:59 06:59 06:59 Intake Total 2320 / 2320 1550.0 / 1550.0 1737.053 / 7593.086 5581.565 / 1592.565 Output Total 1341 / 1341 750 / 750 Balance 979 / 979 1550.0 / 1550.0 987.053 / 265.863 6712.565 / 1592.565 Weight 58.6 kg 59.6 kg 60.9 kg 60.9 kg Laboratory Data (Last 24 Hrs):: 12/13/19 12/14/19 13:47 07:41 Sodium 134 L 133 L Potassium 3.8 4.0 Chloride 101 100 Carbon Dioxide 26 25 BUN 17 22 H Creatinine 1.42 H 1.97 H D Glucose 200 H 187 H Calcium 8.3 L 8.2 L Magnesium 2.5 H 2.2 Total Bilirubin 0.5 0.5 AST 303 H 199 H ALT 246 H 201 H Alkaline Phosphatase 171 H 158 H Albumin 2.5 L 2.4 L Nutrition Assessment:: Please refer to the Notes section of the EMR for the most recent control room technician note. - Assessment Ms Contreras is an 84 y/o F with a PMH of breast cancer who currently has SBO secondary to ileus or cancer metastasis. - Plan For day 1 of PN administration, the following will be ordered: Macronutrients Amino acids 60 grams/day Dextrose 160 grams/day Lipids 0 grams/day (hold lipids due to LFTs > 3 x ULN. re-evaluate on 12/15/2019) Micronutrients Combined electrolytes 20 mL - contains 35 mEq Na, 20 meq K, 4.5 mEq Ca, 5 mEq Mg, 35 mEq Cl, 29.5 mEq acetate per 20 mL Sodium phosphate 21 MMol Sodium chloride 35 mEq Sodium acetate 35 mEq Potassium phosphate 0 mMol Potassium chloride 0 mEq Potassium acetate 0 mEq Magnesium sulfate 0 mEq Calcium gluconate 0 mEq Multivitamins 10 mL Trace Elements 10 mL Additional additives: Total volume 2000 mL to be infused over 24 hrs will provide 750 kcal/day Final osmolarity 767 mOsm/L (maximum for PPN is 900 mOsm/L) Labs to be ordered per PN order protocol of note, final osmolarity is low enough that TPN could run EITHER peripherally or centrally Pharmacy will follow and adjust parenteral nutrition orders on a daily basis. Thank you.
[2019-12-14] MEDS ORDERED: Custom Peripheral Pn 2,000 ML in TPN BAG 0 ML IV SCH (16:00)
[2019-12-14] MEDS ORDERED: DEXTROSE 10% 1,000 ML IV PRN (20:00)
[2019-12-14] MEDS ORDERED: TPN/PPN CONSULT PHARMACY PRN (20:00)
[2019-12-14] MEDS: LATANOPROST 0.005% OP SOLN 2.5 ML BTL OPL SCH (21:12)
[2019-12-15] MEDS: INSULIN ASPART 100 UNITS/ML 3 ML PEN SC SCH ×4 (00:06→18:32)
[2019-12-15] MEDS: AMIODARONE 450 MG in D5W 250ML IN *POLYOLEFIN BAG* 241 ML IV SCH ×3 (00:26→17:35)
[2019-12-15] MEDS: D5W AND 1/2NSS 1,000 ML IV SCH ×2 (02:11→19:55)
[2019-12-15 07:52] LABS: Creatinine Clr Calc Pharmacy 19.8 ml/min; Est GFR (African American) 28.9; Est GFR (Non-African American) 24.9; Potassium 3.5 mmol/L (3.5-5.1)
[2019-12-15 07:54] LABS: Magnesium 2.2 mg/dl (1.8-2.4); Phosphorus 2.5 mg/dl (2.5-4.9)
[2019-12-15] MEDS ORDERED: POTASSIUM PHOS 3 MMOL/1 ML INFUSION IV STA (08:10)
--- NOTE | 2019-12-15 08:18 | XRay Report ---
XR KUB/Abdomen 1 view CLINICAL HISTORY: eval sbo pain COMPARISON STUDY: 12/14/2019 FINDINGS: Improved bowel pattern. Diminished small bowel distention. Nasogastric tube remains coiled within the stomach. IMPRESSION: Improved bowel pattern with a decrease in small bowel distention. ACT 112: Negative or not required by law. The above report was generated using voice recognition software. It may contain grammatical, syntax or spelling errors. Electronically signed by: Steven Douglas M.D. 12/15/2019 8:17 AM
[2019-12-15] MEDS ORDERED: POTASSIUM PHOSPHATE 15 MMOL in SODIUM CHLORIDE 0.9% 250 ML IV ONE (08:30)
[2019-12-15 08:40] LABS: Albumin Level 2.2 gm/dl (3.4-5.0); Bilirubin Direct 0.3 mg/dl (0-0.2); Bilirubin,Total 0.6 mg/dl (0.2-1); Total Protein 5.5 gm/dl (6.4-8.2)
--- NOTE | 2019-12-15 08:40 | Hospitalist Progress Note ---
Date of Service December 15, 2019 Assessment & Plan (1) SBO (small bowel obstruction): possible Secondary to peritoneal metastasis versus ileus Metastatic breast cancer status post surgery, radiation (chemotherapy currently on hold) -admission CT chest 1. Significant interval worsening of local small bowel wall thickening in a loop of small bowel in the superior pelvis. The appearance is nonspecific and could raise concern for focal severe infectious or inflammatory enteritis, intramural hematoma, post radiation change, or focal angioedema among other etiologies. An ischemic etiology is not excluded though no pneumatosis is evident and the focal distribution may argue against this diagnosis. No perforation. 2. Resulting high-grade partial or complete small bowel obstruction. 3. Nodular infiltration of the omentum and peritoneum especially in the left upper quadrant. It is difficult to exclude peritoneal metastatic disease or peritonitis. Correlate with the patient's oncologic history. Follow-up is warranted. 4. 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 Chronic right renal atrophy. 5. Volume overload may be indicated by the ascites versus a reactive etiology. 6. Decreased right middle lobe consolidation with increased right basilar atelectasis in the setting of effusion. -NG tube was started and general surgery was consulted to follow patient with hospitalist team -12/11/2019 updates: Patient continues to have NG tube. She was able to ambulate with NG tube temporarily clamped. Patient reports abdomen pain improving. However AM KUB still showing distended small bowel loops.Patient gave permission for daughter who is a nurse ([phone]) to be updated and this called was made to daughter. -12/12/2019 update: Minimal NG tube output, no abdomen pain today, abdomen still somewhat firm, patient has had some bowel movements in recent days. patient reports that Oncology Dr. Toribio came by earlier today and spoke with her (no acute hematology plans for cancer treatment until outpatient follow up after this hospital stay. telemetry intermittently periods atrial flutter with sinus rhythm and mild tachycardia. patient had NG tube removed by general surgery team. patient ate liquid diet for dinner and subsequent vomiting 30 minutes later -12/13/2019: NG tube replaced as mildly more dilated small bowels on KUB. pain medications modified to eliminate all narcotics all together if abdominal pain. avoided acetaminophen because of transaminitis. limited pain medication to Toradol -12/14/2019: There is a nasogastric tube within the stomach. There is persistent small bowel dilatation with small bowel loops measuring up to 5.4 cm in diameter. AST and ALT improving but more SOLITARIO likely because of Toradol. will go back to acetaminophen prn. patient's daughter has been concerned about poor nutritional status despite recent D5 in IV hydration when patient on NG tube and has inquired about possible parental nutrition. 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 Chronic right renal atrophy. -no acute interventions as per urology and manage with IV hydration -recent fluctuations with creatinine but generally under 1.5 as of 12/13/2019 -creatinine elevated to be 1.97 on 12/14/2019, patient on IV fluids with dextrose for nutrition and hydration and to receive a total of 2 IV fluid boluses of 250 ml each. stopped Toradol from pain medication list -creatinine 1.83 on 12/15/2019 Paroxysmal Atrial Fibrillation -patient has been noted to be between normal sinus rhythm and atrial flutter on this admission, however is off anticoagulation secondary to history of rectus sheath hematoma -metoprolol was titrated up when on NG tube on initially on this admission, but patient needed IV amiodarone which was started on 12/13/2019 to convert back to sinus rhythm from atrial flutter/atrial fibrillation with rapid ventricular response. converted at 2:45 PM on 12/13/2019 and cardiology service advised to have IV amiodarone still running. cardiology service then added scheduled metoprolol with the IV amiodarone on 12/14/2019 -12/15/2019: appreciated further cardiology recommendations Hypomagnesemia -serum magnesium 1.6 on 12/13/2019, give oral and IV magnesium and serum magnesium corrected Transaminitis -rising AST/ALT noted on 12/13/2019 -ultrasound of gallbladder 12/14/2019: Mildly distended gallbladder containing sludge. There is minimal gallbladder wall thickening. The technologist reports a negative sonographic Magallanes sign. No focal hepatic masses. No evidence of ductal dilatation. Nondiagnostic evaluation of pancreas. Right-sided hydronephrosis. Ascites -minimize acetaminophen to 650 mg IV q8 hours for pain or fever chronic anemia -hemoglobin stable between high 7s and mid 8 ranges hypertension -blood pressure is not hypertensive, hold the amlodipine hyperlipidemia -on statin Rx Type 2 diabetes -recent hemoglobin A1c of 6.20 October 2019 -on sliding scale insulin for now DVT prophylaxis with SCDs DNR Daughter Elaina Admission and Anticipated Discharge Date Admission Date: December 08, 2019 Subjective 12/15/2019: KUB appears to show more improvements of bowel dilation, patient seen and examined in AM while sleeping, hospitalist did not want to wake her up but on gentle exam the belly is less firm and more bowel sounds, will plan to continue NG and re-assess when patient awake Review of Systems Review of Systems: Unobtainable due to reduced consciousness Physical Exam Constitutional: WD/WN, vitals as above Eyes: sleeping ENMT: has NG tube Neck: normal visual inspection Respiratory: normal respiratory effort, lungs clear to auscultation Cardiovascular: Rate/Rhythm: regular rate (heart rates high 90s to low 100s) Gastrointestinal (Abdomen): less firm abdomen, bowel sounds better today compared to recent Musculoskeletal: Head/Neck/Chest: normocephalic and head atraumatic Neurologic: sleeping Psychiatric: sleeping Results & Data Results & Data ([facility]) Vital Signs (Past 12 Hours) Vital Signs Temp Pulse Pulse Resp BP Pulse Ox 12/15/19 07:08 37.1 C 110 H 16 104/63 90 12/15/19 03:03 37.4 C 93 H 17 99/53 L 95 12/15/19 00:00 91 H 12/14/19 23:24 96 12/14/19 23:14 37.2 C 93 H 17 101/60 86 L
[2019-12-15] MEDS: METOPROLOL TARTRATE 25 MG TAB PO SCH ×3 (09:24→21:22)
--- NOTE | 2019-12-15 10:33 | Surgery Progress Note ---
Date of Service pt is still passed some gas, no vomiting, no fever, no BM yet, pt had NG tube insertion last night, no significant abdominal pain, December 15, 2019 Assessment & Plan (1) SBO (small bowel obstruction): DDX: enteritis, metastatic disease, or chemotherapy induced enteritis?? -vitals stable - minimal NGT output in last 24 hours, 40 cc - abdomen still distended, mildly improved today but passing small amounts of flatus and liquid stool - KUB today showing partial SBO, contrast and gas seen in colon however Plan: Given KUB showing gas and contrast in colon, complete obstruction is ruled out. Remove NGT, start clear liquids Dulcolax suppository PT/OT consulted Continue ambulation to increase GI motility Dr. Mclain covering this weekend Dr. Frias was present during my examination and agrees with above. 12/15/2019 10:34AM PSBO, KUB - less small bowel distend, but pt is still can not tolerated diet, possible PSBO, I recommend to do small bowel follow through study, D/W benefits, risks and alternatives of the the study, pt understood, she agrees with the study. will F/U Subjective Patient seen and examined the bedside. NG tube reinserted yesterday due to small bowel obstruction. Patient has not received any oral medications today. IV amiodarone infusing. She remains in sinus rhythm with elevated heart rate this morning. Blood pressure remains borderline hypotensive. She reports abdominal discomfort. No nausea this morning. Denies chest pain, palpitations, or shortness of breath. Physical Exam Constitutional: WD/WN, vitals as above well developed and well nourished Eyes: PERRL, conjunctivae normal, anicteric sclerae ENMT: external ear and nose normal, oropharynx normal Neck: trachea midline, no thyromegaly Respiratory: normal respiratory effort, lungs clear to auscultation normal respiratory effort Cardiovascular: RRR, no murmur, no edema Gastrointestinal (Abdomen): Percussion/Palpation: abdomen soft no distend, no tenderness, BS +, middle line scar. Musculoskeletal: no cyanosis or clubbing, extremities motor strength 5/5 Skin: no rashes, warm and dry Neurologic: awake Psychiatric: Orientation: alert and oriented x 3 Results & Data Vital Signs (Past 12 Hours) Vital Signs Temp Pulse Pulse Resp BP Pulse Ox 12/15/19 07:08 37.1 C 110 H 16 104/63 90 12/15/19 03:03 37.4 C 93 H 17 99/53 L 95 12/15/19 00:00 91 H 12/14/19 23:24 96 12/14/19 23:14 37.2 C 93 H 17 101/60 86 L Laboratory Results Abnormal lab results 12/14/19 12/14/19 12/15/19 Range/Units 11:29 18:00 00:05 Sodium (136-145) mmol/L BUN (7-18) mg/dl Creatinine (0.6-1.2) mg/dl Glucose (70-99) mg/dl POC Glucose 157 H 164 H 155 H (70-99) mg/dl Calcium (8.5-10.1) mg/dl Direct Bilirubin (0-0.2) mg/dl AST (15-37) U/L ALT (12-78) U/L Alkaline Phosphatase (45-117) U/L Total Protein (6.4-8.2) gm/dl Albumin (3.4-5.0) gm/dl 12/15/19 12/15/19 12/15/19 Range/Units 05:44 06:59 06:59 Sodium 133 L (136-145) mmol/L BUN 24 H (7-18) mg/dl Creatinine 1.83 H (0.6-1.2) mg/dl Glucose 142 H (70-99) mg/dl POC Glucose 168 H (70-99) mg/dl Calcium 8.0 L (8.5-10.1) mg/dl Direct Bilirubin 0.3 H (0-0.2) mg/dl AST 138 H (15-37) U/L ALT 158 H (12-78) U/L Alkaline Phosphatase 238 H (45-117) U/L Total Protein 5.5 L (6.4-8.2) gm/dl Albumin 2.2 L (3.4-5.0) gm/dl Diagnostic Findings XR KUB/Abdomen 1 view CLINICAL HISTORY: eval sbo pain COMPARISON STUDY: 12/14/2019 FINDINGS: Improved bowel pattern. Diminished small bowel distention. Nasogastric tube remains coiled within the stomach. IMPRESSION: Improved bowel pattern with a decrease in small bowel distention.
--- NOTE | 2019-12-15 15:35 | Cardiology Progress Note ---
Date of Service December 15, 2019 Assessment & Plan (1) Paroxysmal atrial fibrillation: (2) Atrial flutter: (3) Hypokalemia: (4) Hypomagnesemia: (5) Small bowel obstruction: Continue IV amiodarone infusion and oral metoprolol as tolerated. Recommend gentle IV hydration. Awaiting possible PICC line placement for TPN infusion. Supplement potassium and magnesium as indicated. Subjective Patient seen and examined at the bedside. Abdominal discomfort improved. Denies chest pain or palpitations. Telemetry demonstrates periods of atrial flutter as well as sinus rhythm and sinus tachycardia. Currently sinus rhythm. Received midday dose of metoprolol however, beta-moni intermittently withheld due to borderline hypotension. Offers no other concerns/complaints at this time. Review of Systems Review of Systems: All systems reviewed & are unremarkable except as noted in HPI & below Physical Exam Constitutional: well developed, well nourished and + ill appearing; no acute distress Respiratory: no respiratory distress, no labored breathing, no retractions and no cough Auscultation: no crackles, no rales, no rhonchi and no wheezes Cardiovascular: Rate/Rhythm: regular rhythm and + tachycardic Heart Sounds: normal S1 and normal S2; no murmur Vessels: no JVD Extremities: no edema Gastrointestinal (Abdomen): Inspection/Auscultation: + abdomen distended; + abnormal bowel sounds Percussion/Palpation: + abdomen tender; no guarding and abdomen not rigid Musculoskeletal: Head/Neck/Chest: normocephalic and head atraumatic Skin: no rashes, warm and dry Neurologic: moves all extremities; no focal motor deficits Speech / Cogniti on: normal speech Psychiatric: A+Ox3, euthymic affect Results & Data Vital Signs (Past 12 Hours) Vital Signs Temp Pulse Resp BP Pulse Ox 12/15/19 15:05 36.4 C L 89 17 147/74 H 92 12/15/19 07:08 37.1 C 110 H 16 104/63 90 (1) Atrial flutter Atrial flutter type: unspecified Qualified Code(s): I48.92 - Unspecified atrial flutter
--- NOTE | 2019-12-15 17:27 | Fluoroscopy Report ---
FL small bowel follow through CLINICAL HISTORY: SBO COMPARISON STUDY: Supine abdomen dated 12/15/2019 11 overhead radiographs were obtained. No fluoroscopic time was utilized. 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 300 cc of contrast was utili zed. There are dilated small bowel loops present. No discrete transition zone was visualized. There is pro long small bowel transit. Contrast reached the colon 5 hours and 30 minutes. IMPRESSION: 1. Small bowel dilatation 2. Prolonged small bowel transit time. 3. No discrete transition zones identified. ACT 112: Negative or not required by law. Electronically signed by: Shun Blanchard M.D. 12/15/2019 5:26 PM
[2019-12-15] MEDS: LATANOPROST 0.005% OP SOLN 2.5 ML BTL OPL SCH (21:22)
[2019-12-15] MEDS: AMITRIPTYLINE HCL 25 MG TAB PO SCH (21:22)
[2019-12-16] MEDS: INSULIN ASPART 100 UNITS/ML 3 ML PEN SC SCH ×5 (00:06→22:01)
[2019-12-16 07:09] LABS: Albumin Level 2.3 gm/dl (3.4-5.0); BUN Creatinine Ratio 12.7 (10-20); Bilirubin,Total 0.6 mg/dl (0.2-1); Calcium 8.1 mg/dl (8.5-10.1); Creatinine Clr Calc Pharmacy 21.7 ml/min; Est GFR (African American) 32.2; Est GFR (Non-African American) 27.8; Potassium 3.4 mmol/L (3.5-5.1)
[2019-12-16 07:10] LABS: Albumin Globulin Ratio 0.6 (0.9-2); Globulin 3.6 gm/dl (2.5-4.0); Phosphorus 2.7 mg/dl (2.5-4.9); Total Protein 5.9 gm/dl (6.4-8.2)
--- NOTE | 2019-12-16 08:48 | Hospitalist Progress Note ---
Date of Service December 16, 2019 Assessment & Plan (1) SBO (small bowel obstruction): possible Secondary to peritoneal metastasis versus ileus Metastatic breast cancer status post surgery, radiation (chemotherapy currently on hold) -admission CT chest 1. Significant interval worsening of local small bowel wall thickening in a loop of small bowel in the superior pelvis. The appearance is nonspecific and could raise concern for focal severe infectious or inflammatory enteritis, intramural hematoma, post radiation change, or focal angioedema among other etiologies. An ischemic etiology is not excluded though no pneumatosis is evident and the focal distribution may argue against this diagnosis. No perforation. 2. Resulting high-grade partial or complete small bowel obstruction. 3. Nodular infiltration of the omentum and peritoneum especially in the left upper quadrant. It is difficult to exclude peritoneal metastatic disease or peritonitis. Correlate with the patient's oncologic history. Follow-up is warranted. 4. 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 Chronic right renal atrophy. 5. Volume overload may be indicated by the ascites versus a reactive etiology. 6. Decreased right middle lobe consolidation with increased right basilar atelectasis in the setting of effusion. -NG tube was started and general surgery was consulted to follow patient with hospitalist team -12/11/2019 updates: Patient continues to have NG tube. She was able to ambulate with NG tube temporarily clamped. Patient reports abdomen pain improving. However AM KUB still showing distended small bowel loops.Patient gave permission for daughter who is a nurse ([phone]) to be updated and this called was made to daughter. -12/12/2019 update: Minimal NG tube output, no abdomen pain today, abdomen still somewhat firm, patient has had some bowel movements in recent days. patient reports that Oncology Dr. Toribio came by earlier today and spoke with her (no acute hematology plans for cancer treatment until outpatient follow up after this hospital stay. telemetry intermittently periods atrial flutter with sinus rhythm and mild tachycardia. patient had NG tube removed by general surgery team. patient ate liquid diet for dinner and subsequent vomiting 30 minutes later -12/13/2019: NG tube replaced as mildly more dilated small bowels on KUB. pain medications modified to eliminate all narcotics all together if abdominal pain. avoided acetaminophen because of transaminitis. limited pain medication to Toradol -12/14/2019: There is a nasogastric tube within the stomach. There is persistent small bowel dilatation with small bowel loops measuring up to 5.4 cm in diameter. AST and ALT improving but more SOLITARIO likely because of Toradol. will go back to acetaminophen prn. patient's daughter has been concerned about poor nutritional status despite recent D5 in IV hydration when patient on NG tube and has inquired about possible parental nutrition. PICC line was attempted to be placed but not successful and then patient did not wish for PICC line -12/15/2019: KUB appears to show more improvements of bowel dilation, patient had small bowel follow through as per general surgery team -12/16/2019 updates: Patient made multiple bowel movements since 12/17/2019 which nurse describes as watery and patient reported there were 8 bowel movements. General surgery took off the NG tube on AM of 12/16/2019. Patient still on IV amiodarone. Her current peripheral line access is bilateral feet. Discussed that with patient that if any further issues with IV line access that she would be agreeable for PICC line which she consented for for possibility of parental nutrition but then she deferred when unsuccessful placement attempt on 12/14/2019. Hopefully patient can take liquid diet and avoid NG tube replacement and that cardiology service can transition off IV amiodarone in near future. Postobstructive diarrhea -C.difficile is negative Acute Renal Failure Obstructive uropathy on CT possibly contributory - CT chest: Findings suggest bilateral ureteropelvic junction obstruction worse on the right. Chronic right renal atrophy. -no acute interventions as per urology and manage with IV hydration -recent fluctuations with creatinine but generally under 1.5 as of 12/13/2019 -creatinine elevated to be 1.97 on 12/14/2019, patient on IV fluids with dextrose for nutrition and hydration and to receive a total of 2 IV fluid boluses of 250 ml each. stopped Toradol from pain medication list -creatinine 1.83 on 12/15/2019, improved to 1.67 on 12/16/2019 Paroxysmal Atrial Fibrillation -patient has been noted to be between normal sinus rhythm and atrial flutter on this admission, however is off anticoagulation secondary to history of rectus sheath hematoma -metoprolol was titrated up when on NG tube on initially on this admission, but patient needed IV amiodarone which was started on 12/13/2019 to convert back to sinus rhythm from atrial flutter/atrial fibrillation with rapid ventricular response. converted at 2:45 PM on 12/13/2019 and cardiology service advised to have IV amiodarone still running. cardiology service then added scheduled metoprolol with the IV amiodarone on 12/14/2019 -12/16/2019: appreciated further cardiology recommendations in regards to IV amiodarone and oral metoprolol dosing Hypomagnesemia -serum magnesium 1.6 on 12/13/2019, give oral and IV magnesium and serum magnesium corrected Transaminitis -rising AST/ALT noted on 12/13/2019 -ultrasound of gallbladder 12/14/2019: Mildly distended gallbladder containing sludge. There is minimal gallbladder wall thickening. The technologist reports a negative sonographic Magallanes sign. No focal hepatic masses. No evidence of ductal dilatation. Nondiagnostic evaluation of pancreas. Right-sided hydronephrosis. Ascites -minimize acetaminophen to 650 mg IV q8 hours for pain or fever. AST/ALT im proving but normalized as of 12/16/2019 chronic anemia -hemoglobin stable between high 7s and mid 8 ranges hypertension -blood pressure is not hypertensive, hold the amlodipine hyperlipidemia -on statin Rx Type 2 diabetes -recent hemoglobin A1c of 6.20 October 2019 -on sliding scale insulin for now DVT prophylaxis with SCDs DNR Daughter Elaina Admission and Anticipated Discharge Date Admission Date: December 08, 2019 Subjective Patient made multiple bowel movements since 12/17/2019 which nurse describes as watery and patient reported there were 8 bowel movements. General surgery took off the NG tube on AM of 12/16/2019. Patient still on IV amiodarone. Her current peripheral line access is bilateral feet. Discussed that with patient that if any further issues with IV line access that she would be agreeable for PICC line which she consented for for possibility of parental nutrition but then she deferred when unsuccessful placement attempt on 12/14/2019. Hopefully patient can take liquid diet and avoid NG tube replacement and that cardiology service can transition off IV amiodarone in near future no chest pain. no shortness of breath. on room air. no vomiting. no dizzines. no headache Review of Systems Review of Systems: All systems reviewed & are unremarkable except as noted in Subjective Physical Exam Constitutional: WD/WN, vitals as above comfortable Eyes: PERRL, conjunctivae normal, anicteric sclerae EOM intact bilaterally ENMT: external ear and nose normal, oropharynx normal Neck: normal visual inspection Respiratory: normal respiratory effort, lungs clear to auscultation Cardiovascular: Rate/Rhythm: regular rate (heart rates high 90s to low 100s) Gastrointestinal (Abdomen): Inspection/Auscultation: abdomen normal to inspection Musculoskeletal: Head/Neck/Chest: normocephalic and head atraumatic bilateral peripheral IV on pedal feet bilaterally Neurologic: PERRL, EOMI, accommodation nl, no face palsy, no dysarthria Psychiatric: A+Ox3, euthymic affect Results & Data Results & Data ([facility]) Vital Signs (Past 12 Hours) Vital Signs Temp Pulse Resp BP Pulse Ox 12/16/19 07:46 37.0 C 75 17 136/58 L 96 12/16/19 02:51 36.8 C 86 18 143/73 H 93 12/16/19 00:06 36.6 C 77 17 113/63 92
[2019-12-16] MEDS: METOPROLOL TARTRATE 25 MG TAB PO SCH ×2 (09:31→20:49)
--- NOTE | 2019-12-16 11:09 | Cardiology Progress Note ---
Date of Service December 16, 2019 Assessment & Plan (1) Paroxysmal atrial fibrillation: (2) Atrial flutter: (3) Hypokalemia: (4) Hypomagnesemia: (5) Small bowel obstruction: Discontinue intravenous amiodarone. Recommend oral amiodarone 200 mg twice daily. Reduce metoprolol to 12.5 mg twice daily. Continue gentle IV hydration. Maintain serum potassium greater than 3.5. 20meq PO KCL ordered. Repeat BMP in AM. Subjective Patient seen and examined at the bedside. Heart rate improved this morning. Difficulties with IV access noted. Amiodarone currently infusing through a peripheral line in her foot. Denies chest pain or palpitations. Abdominal discomfort improved. NG tube removed. Review of Systems Review of Systems: All systems reviewed & are unremarkable except as noted in HPI & below Physical Exam Constitutional: well developed, well nourished and + ill appearing; no acute distress Respiratory: no respiratory distress, no labored breathing, no retractions and no cough Auscultation: no crackles, no rales, no rhonchi and no wheezes Cardiovascular: Rate/Rhythm: regular rhythm Heart Sounds: normal S1 and no rmal S2; no murmur Vessels: no JVD Extremities: no edema Gastrointestinal (Abdomen): Inspection/Auscultation: abdomen not distended and + abnormal bowel sounds Percussion/Palpation: abdomen soft; abdomen nontender, no guarding and abdomen not rigid Musculoskeletal: Head/Neck/Chest: normocephalic and head atraumatic Skin: no rashes, warm and dry Neurologic: moves all extremities; no focal motor deficits Speech / Cognition: normal speech Psychiatric: A+Ox3, euthymic affect Results & Data Vital Signs (Past 12 Hours) Vital Signs Temp Pulse Resp BP Pulse Ox 12/16/19 07:46 37.0 C 75 17 136/58 L 96 12/16/19 02:51 36.8 C 86 18 143/73 H 93 12/16/19 00:06 36.6 C 77 17 113/63 92 (1) Atrial flutter Atrial flutter type: unspecified Qualified Code(s): I48.92 - Unspecified atrial flutter
[2019-12-16] MEDS ORDERED: POTASSIUM CHLORIDE 20 MEQ TABCR PO STA (11:10)
--- NOTE | 2019-12-16 11:21 | Surgery Progress Note ---
Date of Service pt had small follow through yesterday, no significant SBO, pt doing better, passed BM, no nausea, no vomiting, NG tube minimal, December 16, 2019 Assessment & Plan (1) SBO (small bowel obstruction): DDX: enteritis, metastatic disease, or chemotherapy induced enteritis?? -vitals stable - minimal NGT output in last 24 hours, 40 cc - abdomen still distended, mildly improved today but passing small amounts of flatus and liquid stool - KUB today showing partial SBO, contrast and gas seen in colon however Plan: Given KUB showing gas and contrast in colon, complete obstruction is ruled out. Remove NGT, start clear liquids Dulcolax suppository PT/OT consulted Continue ambulation to increase GI motility Dr. Mclain covering this weekend Dr. Frias was present during my examination and agrees with above. 12/15/2019 10:34AM PSBO, KUB - less small bowel distend, but pt is still can not tolerated diet, possible PSBO, I recommend to do small bowel follow through study, D/W benefits, risks and alternatives of the the study, pt understood, she agrees with the study. will F /U 12/16/2019 11:22AM doing better, pull out NG, clear diet, will F/U Subjective Patient seen and examined at the bedside. Heart rate improved this morning. Difficulties with IV access noted. Amiodarone currently infusing through a peripheral line in her foot. Denies chest pain or palpitations. Abdominal discomfort improved. NG tube removed. Physical Exam Constitutional: WD/WN, vitals as above well developed and well nourished Eyes: PERRL, conjunctivae normal, anicteric sclerae ENMT: external ear and nose normal, oropharynx normal Neck: trachea midline, no thyromegaly Respiratory: normal respiratory effort, lungs clear to auscultation normal respiratory effort Cardiovascular: RRR, no murmur, no edema Gastrointestinal (Abdomen): Percussion/Palpation: abdomen soft NT, ND, no distend Musculoskeletal: no cyanosis or clubbing, extremities motor strength 5/5 Skin: no rashes, warm and dry Neurologic: awake Psychiatric: Orientation: alert and oriented x 3 Results & Data Vital Signs (Past 12 Hours) Vital Signs Temp Pulse Resp BP Pulse Ox 12/16/19 07:46 37.0 C 75 17 136/58 L 96 12/16/19 02:51 36.8 C 86 18 143/73 H 93 12/16/19 00:06 36.6 C 77 17 113/63 92 Laboratory Results Abnormal lab results 12/15/19 12/15/19 12/15/19 Range/Units 16:38 18:25 23:59 Potassium (3.5-5.1) mmol/L BUN (7-18) mg/dl Creatinine (0.6-1.2) mg/dl Glucose (70-99) mg/dl POC Glucose 198 H 194 H 141 H (70-99) mg/dl Calcium (8.5-10.1) mg/dl AST (15-37) U/L ALT (12-78) U/L Alkaline Phosphatase (45-117) U/L Total Protein (6.4-8.2) gm/dl Albumin (3.4-5.0) gm/dl Albumin/Globulin Ratio (0.9-2) 12/16/19 12/16/19 Range/Units 05:59 06:14 Potassium 3.4 L (3.5-5.1) mmol/L BUN 21 H (7-18) mg/dl Creatinine 1.67 H (0.6-1.2) mg/dl Glucose 153 H (70-99) mg/dl POC Glucose 160 H (70-99) mg/dl Calcium 8.1 L (8.5-10.1) mg/dl AST 104 H (15-37) U/L ALT 125 H (12-78) U/L Alkaline Phosphatase 228 H (45-117) U/L Total Protein 5.9 L (6.4-8.2) gm/dl Albumin 2.3 L (3.4-5.0) gm/dl Albumin/Globulin Ratio 0.6 L (0.9-2) Diagnostic Findings FL small bowel follow through CLINICAL HISTORY: SBO COMPARISON STUDY: Supine abdomen dated 12/15/2019 11 overhead radiographs were obtained. No fluoroscopic time was utilized. 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 300 cc of contrast was utilized. There are dilated small bowel loops present. No discrete transition zone was visualized. There is prolong small bowel transit. Contrast reached the colon 5 hours and 30 minutes. IMPRESSION: 1. Small bowel dilatation 2. Prolonged small bowel transit time. 3. No discrete transition zones identified.
--- NOTE | 2019-12-16 12:33 | Electrocardiogram Report ---
Test Reason : Blood Pressure : / mmHG Vent. Rate : 089 BPM Atrial Rate : 089 BPM P-R Int : 204 ms QRS Dur : 094 ms QT Int : 416 ms P-R-T Axes : -14 005 036 degrees QTc Int : 506 ms Normal sinus rhythm Prolonged QT Abnormal ECG When compared with ECG of 14-DEC-2019 09:35, Nonspecific T wave abnormality, improved in Anterolateral leads Confirmed by Dayron Gallego ([id number]) on 12/16/2019 12:33:32 PM Referred By: REFERRED SELF Confirmed By:Dayron Gallego
[2019-12-16] MEDS: AMIODARONE 200 MG TAB PO SCH ×2 (13:01→22:04)
[2019-12-16] MEDS: D5W AND 1/2NSS 1,000 ML IV SCH ×2 (20:47→23:56)
[2019-12-16] MEDS: LATANOPROST 0.005% OP SOLN 2.5 ML BTL OPL SCH (20:48)
[2019-12-16] MEDS: AMITRIPTYLINE HCL 25 MG TAB PO SCH (20:49)
[2019-12-16] MEDS: AMIODARONE 450 MG in D5W 250ML IN *POLYOLEFIN BAG* 241 ML IV SCH ×3 (21:21→21:23)
[2019-12-16] MEDS: METOPROLOL TARTRATE 1 MG/ML VIAL IV PRN (23:56)
[2019-12-17 07:13] LABS: Basophils # (auto) 0.02 K/uL (0-0.2); Basophils % (auto) 0.2 %; Eosinophils # (auto) 0.72 K/uL (0-0.5); Eosinophils % (auto) 6.2 %; Hematocrit (blood only) 23.6 % (37-47); Hemoglobin 7.8 g/dL (12.0-16.0); Immature Granulocytes # (auto) 0.05 K/uL (0.00-0.02); Immature Granulocytes % (auto) 0.4 %; Lymphocytes % (auto) 7.7 %; Mean Corpuscular Hemoglobin 31.6 pg (25-34); Mean Corpuscular Hgb Conc 33.1 g/dL (32-36); Mean Corpuscular Volume 95.5 fL (80-100); Monocytes # (auto) 1.27 K/uL (0.11-0.59); Monocytes % (auto) 10.9 %; Neutrophils # (auto) 8.68 K/uL (1.4-6.5); Neutrophils % (auto) 74.6 %; Platelet Count 213 K/uL (130-400); RDW Coefficient of Variation 15.8 % (11.5-14.5); RDW Standard Deviation 54.9 fL (36.4-46.3); Red Blood Count 2.47 M/uL (4.2-5.4); White Blood Count 11.64 K/uL (4.8-10.8)
--- NOTE | 2019-12-17 07:41 | Hospitalist Progress Note ---
Date of Service December 17, 2019 Assessment & Plan (1) SBO (small bowel obstruction): possible Secondary to peritoneal metastasis versus ileus Metastatic breast cancer status post surgery, radiation (chemotherapy currently on hold) -admission CT chest 1. Significant interval worsening of local small bowel wall thickening in a loop of small bowel in the superior pelvis. The appearance is nonspecific and could raise concern for focal severe infectious or inflammatory enteritis, i ntramural hematoma, post radiation change, or focal angioedema among other etiologies. An ischemic etiology is not excluded though no pneumatosis is evident and the focal distribution may argue against this diagnosis. No perforation. 2. Resulting high-grade partial or complete small bowel obstruction. 3. Nodular infiltration of the omentum and peritoneum especially in the left upper quadrant. It is difficult to exclude peritoneal metastatic disease or peritonitis. Correlate with the patient's oncologic history. Follow-up is warranted. 4. 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 Chronic right renal atrophy. 5. Volume overload may be indicated by the ascites versus a reactive etiology. 6. Decreased right middle lobe consolidation with increased right basilar atelectasis in the setting of effusion. -NG tube was started and general surgery was consulted to follow patient with hospitalist team -12/11/2019 updates: NG tube. She was able to ambulate with NG tube temporarily clamped. Patient reports abdomen pain improving. However AM KUB still showing distended small bowel loops.Patient gave permission for daughter who is a nurse ([phone]) to be updated and this called was made to daughter. -12/12/2019 update: Minimal NG tube output, no abdomen pain today, abdomen still somewhat firm, patient has had some bowel movements in recent days. patient reports that Oncology Dr. Toribio came by earlier today and spoke with her (no acute hematology plans for cancer treatment until outpatient follow up after this hospital stay. telemetry intermittently periods atrial flutter with sinus rhythm and mild tachycardia. patient had NG tube removed by general surgery team. patient ate liquid diet for dinner and subsequent vomiting 30 minutes later -12/13/2019: NG tube replaced as mildly more dilated small bowels on KUB. pain medications modified to eliminate all narcotics all together if abdominal pain. avoided acetaminophen because of transaminitis. limited pain medication to Toradol -12/14/2019: There is a nasogastric tube within the stomach. There is persistent small bowel dilatation with small bowel loops measuring up to 5.4 cm in diameter. AST and ALT improving but more SOLITARIO likely because of Toradol. will go back to acetaminophen prn. patient's daughter has been concerned about poor nutritional status despite recent D5 in IV hydration when patient on NG tube and has inquired about possible parental nutrition. PICC line was attempted to be placed but not successful and then patient did not wish for PICC line -12/15/2019: KUB appears to show more improvements of bowel dilation, patient had small bowel follow through as per general surgery team -12/16/2019 updates: Patient made multiple bowel movements since 12/17/2019 which nurse describes as watery and patient reported there were 8 bowel movements. General surgery took off the NG tube on AM of 12/16/2019. Patient still on IV amiodarone. Her current peripheral line access is bilateral feet. Discussed that with patient that if any further issues with IV line access that she would be agreeable for PICC line which she consented for for possibility of parental nutrition but then she deferred when unsuccessful placement attempt on 12/14/2019. Hopefully patient can take liquid diet and avoid NG tube replacement and that cardiology service can transition off IV amiodarone in near future. 12/17/2019 patient tolerated clear diet, plan to advance diet Postobstructive diarrhea -C.difficile is negative Acute Renal Failure Obstructive uropathy on CT possibly contributory - CT chest: Findings suggest bilateral ureteropelvic junction obstruction worse on the right. Chronic right renal atrophy. -no acute interventions as per urology and manage with IV hydration -recent fluctuations with creatinine but generally under 1.5 as of 12/13/2019 -creatinine elevated to be 1.97 on 12/14/2019, patient on IV fluids with dextrose for nutrition and hydration and to receive a total of 2 IV fluid boluses of 250 ml each. stopped Toradol from pain medication list -creatinine 1.83 on 12/15/2019 Now 1.58 (12/16) Paroxysmal Atrial Fibrillation -patient has been noted to be between normal sinus rhythm and atrial flutter on this admission, however is off anticoagulation secondary to history of rectus sheath hematoma -metoprolol was titrated up when on NG tube on initially on this admission, but patient needed IV amiodarone which was started on 12/13/2019 to convert back to sinus rhythm from atrial flutter/atrial fibrillation with rapid ventricular response. converted at 2:45 PM on 12/13/2019 and cardiology service advised to have IV amiodarone still running. cardiology service then added scheduled metoprolol with the IV amiodarone on 12/14/2019 -12/16/2019: appreciated further cardiology recommendations, IV amiodarone stopped now, switch to p.o. amiodarone 200 BID and metoprolol was decreased to 12.5 twice daily Hypomagnesemia -serum magnesium 1.6 on 12/13/2019, give oral and IV magnesium and serum magnesium corrected Transaminitis -rising AST/ALT noted on 12/13/2019 -ultrasound of gallbladder 12/14/2019: Mildly distended gallbladder containing sludge. There is minimal gallbladder wall thickening. The technologist reports a negative sonographic Magallanes sign. No focal hepatic masses. No evidence of ductal dilatation. Nondiagnostic evaluation of pancreas. Right-sided hydronephrosis. Ascites -minimize acetaminophen to 650 mg IV q8 hours for pain or fever. AST/ALT improving but normalized as of 12/16/2019 chronic anemia -hemoglobin stable between high 7s and mid 8 ranges hypertension -blood pressure is not hypertensive, hold the amlodipine hyperlipidemia -on statin Rx Type 2 diabetes -recent hemoglobin A1c of 6.20 October 2019 -on sliding scale insulin for now DVT prophylaxis with SCDs DNR Daughter Elaina Admission and Anticipated Discharge Date Admission Date: December 08, 2019 Subjective No acute events overnight. Patient sitting up in chair, in no acute distress. She was switched to p.o. amiodarone yesterday 200 mg twice a day, and metoprolol was decreased to 12.5 twice a day. She is tolerating a liquid diet. Denies any abdominal pain, nausea or vomiting. Says she had some soft/liquid bowel movement earlier. She is passing gas. Denies any fevers or chills, also denies any chest pain shortness of breath or cough. She was told earlier today that her diet can be advanced (surgical service ?). Review of Systems Review of Systems: All systems reviewed & are unremarkable except as noted in HPI & below Constitutional: no fever and no chills Respiratory: no cough and no dyspnea Cardiovascular: no chest pain and no palpitations Gastrointestinal: no abdominal pain, no nausea, no vomiting and no constipation Physical Exam Physical Exam: Constitutional: Elderly female sitting up in a chair, in no acute distress, WD/WN, vitals as above, comfortable Eyes: PERRL, conjunctivae normal, anicteric sclerae EOM intact bilaterally ENMT: external ear and nose normal, oropharynx normal Neck: normal visual inspection Respiratory: normal respiratory effort, lungs clear to auscultation Cardiovascular: Rate/Rhythm: regular rate (heart rates high 90s to low 100s) Gastrointestinal (Abdomen): normal bowel sounds, soft, nondistended, nontender to palpation Musculoskeletal: Head/Neck/Chest: normocephalic and head atraumatic, moves remedies spontaneously, trace lower extremity edema Neurologic: PERRL, EOMI, accommodation nl, no face palsy, no dysarthria, moves extremities spontaneously Psychiatric: A+Ox3, euthymic affect Results & Data Results & Data ([facility]) Vital Signs (Past 12 Hours) Vital Signs Temp Pulse Pulse Resp BP Pulse Ox 12/17/19 03:17 36.8 C 93 H 18 137/64 93 12/16/19 23:56 132 H 12/16/19 23:09 36.9 C 128 H 19 137/75 93 Laboratory Results 12/17/19 12/17/19 12/17/19 Range/Units 07:25 06:34 06:34 WBC 11.64 H (4.8-10.8) K/uL RBC 2.47 L (4.2-5.4) M/uL Hgb 7.8 L (12.0-16.0) g/dL Hct 23.6 L (37-47) % MCV 95.5 (80-100) fL MCH 31.6 (25-34) pg MCHC 33.1 (32-36) g/dL RDW Std Deviation 54.9 H (36.4-46.3) fL RDW Coeff of Jennifer 15.8 H (11.5-14.5) % Plt Count 213 (130-400) K/uL MPV 9.0 (7.4-10.4) fL Immature Gran % (Auto) 0.4 % Neut % (Auto) 74.6 % Lymph % (Auto) 7.7 % [place] % (Auto) 10.9 % Eos % (Auto) 6.2 % Baso % (Auto) 0.2 % Immature Gran # (Auto) 0.05 H (0.00-0.02) K/uL Neut # (Auto) 8.68 H (1.4-6.5) K/uL Lymph # (Auto) 0.90 L (1.2-3.4) K/uL [place] # (Auto) 1.27 H (0.11-0.59) K/uL Eos # (Auto) 0.72 H (0-0.5) K/uL Baso # (Auto) 0.02 (0-0.2) K/uL Schistocytes 1+ Sodium 137 (136-145) mmol/L Potassium 3.4 L (3.5-5.1) mmol/L Chloride 105 (98-107) mmol/L Carbon Dioxide 26 (21-32) mmol/L Anion Gap 6.0 (3-11) BUN 15 (7-18) mg/dl Creatinine 1.58 H (0.6-1.2) mg/dl Est Cr Clr Drug Dosing 22.9 ml/min Est GFR ( Amer) 34.5 Est GFR (Non-Af Amer) 29.7 BUN/Creatinine Ratio 9.5 L (10-20) Glucose 146 H (70-99) mg/dl POC Glucose 140 H (70-99) mg/dl Calcium 8.1 L (8.5-10.1) mg/dl Total Bilirubin 0.6 (0.2-1) mg/dl AST 91 H (15-37) U/L ALT 100 H (12-78) U/L Alkaline Phosphatase 188 H (45-117) U/L Total Protein 5.5 L (6.4-8.2) gm/dl Albumin 2.3 L (3.4-5.0) gm/dl Globulin 3.2 (2.5-4.0) gm/dl Albumin/Globulin Ratio 0.7 L (0.9-2) 12/16/19 12/16/19 12/16/19 Range/Units 20:28 16:26 11:41 WBC (4.8-10.8) K/uL RBC (4.2-5.4) M/uL Hgb (12.0-16.0) g/dL Hct (37-47) % MCV (80-100) fL MCH (25-34) pg MCHC (32-36) g/dL RDW Std Deviation (36.4-46.3) fL RDW Coeff of Jennifer (11.5-14.5) % Plt Count (130-400) K/uL MPV (7.4-10.4) fL Immature Gran % (Auto) % Neut % (Auto) % Lymph % (Auto) % [place] % (Auto) % Eos % (Auto) % Baso % (Auto) % Immature Gran # (Auto) (0.00-0.02) K/uL Neut # (Auto) (1.4-6.5) K/uL Lymph # (Auto) (1.2-3.4) K/uL [place] # (Auto) (0.11-0.59) K/uL Eos # (Auto) (0-0.5) K/uL Baso # (Auto) (0-0.2) K/uL Schistocytes Sodium (136-145) mmol/L Potassium (3.5-5.1) mmol/L Chloride (98-107) mmol/L Carbon Dioxide (21-32) mmol/L Anion Gap (3-11) BUN (7-18) mg/dl Creatinine (0.6-1.2) mg/dl Est Cr Clr Drug Dosing ml/min Est GFR ( Amer) Est GFR (Non-Af Amer) BUN/Creatinine Ratio (10-20) Glucose (70-99) mg/dl POC Glucose 179 H 181 H 170 H (70-99) mg/dl Calcium (8.5-10.1) mg/dl Total Bilirubin (0.2-1) mg/dl AST (15-37) U/L ALT (12-78) U/L Alkaline Phosphatase (45-117) U/L Total Protein (6.4-8.2) gm/dl Albumin (3.4-5.0) gm/dl Globulin (2.5-4.0) gm/dl Albumin/Globulin Ratio (0.9-2) Medications Administered Current Inpatient Medications Amiodarone HCl (Cordarone) 200 mg PO Q12H NENA Stop: 01/15/20 10:14 Last Admin: 12/16/19 22:04 Dose: 200 mg Documented by: Amitriptyline HCl (Elavil) 25 mg PO HS NENA Stop: 01/14/20 20:59 Last Admin: 06/02/20 20:49 Dose: 25 mg Documented by: Dextrose (Dextrose 50%) 25 - 50 ml IV UD PRN; Protocol PRN Reason: Hypoglycemia Protocol Stop: 01/07/20 22:32 Glucagon (Glucagen) 1 mg SQ UD PRN; Protocol PRN Reason: Hypoglycemia Protocol Stop: 01/07/20 22:32 Glucose (Dex4 Glucose) 4 - 8 tabs PO UD PRN; Protocol PRN Reason: Hypoglycemia Protocol Stop: 01/07/20 22:32 Glucose (Glucose 40%) 15 - 30 gm PO UD PRN; Protocol PRN Reason: Hypoglycemia Protocol Stop: 01/07/20 22:32 Dextrose/Sodium Chloride (D5w And 1/2nss) 1,000 mls @ 60 mls/hr IV .[id number] NENA Stop: 01/12/20 16:14 Last Admin: 12/16/19 23:56 Dose: 60 mls/hr Documented by: Promethazine HCl 6.25 mg/ (Sodium Chloride) 50.25 mls @ 201 mls/hr IV Q6H PRN PRN Reason: Nausea And Vomiting Stop: 01/12/20 16:58 Last Infusion: 12/13/19 19:31 Dose: Infused Documented by: Acetaminophen (Ofirmev) 65 mls @ 200 mls/hr IV Q8H PRN; Protocol PRN Reason: Pain or Fever Stop: 12/17/19 09:09 Last Infusion: 12/14/19 15:19 Dose: Infused Documented by: Dextrose (D10w) 1,000 mls @ 0 mls/hr IV .Q0M PRN PRN Reason: protocol (see label comments) Stop: 01/13/20 19:59 Insulin Aspart (Novolog Flexpen) 0 units SC ACHS NENA; Protocol Stop: 01/15/20 16:29 Last Admin: 12/17/19 07:46 Dose: 4 units Documented by: Latanoprost (Xalatan Oph) 1 drops OPL HS NENA Stop: 01/08/20 20:59 Last Admin: 12/16/19 20:48 Dose: 1 drops Documented by: Metoprolol Tartrate (Lopressor) 2.5 mg IV Q6 PRN PRN Reason: Tachycardia Stop: 01/08/20 00:00 Last Admin: 12/16/19 23:56 Dose: 2.5 mg Documented by: Metoprolol Tartrate (Lopressor) 12.5 mg PO BID NENA Stop: 01/15/20 20:59 Last Admin: 12/17/19 07:47 Dose: 12.5 mg Documented by: Miscellaneous (Carbohydrates For Hypoglycemia) 15 - 30 gm PO UD PRN PRN Reason: Hypoglycemia Protocol Stop: 01/07/20 22:32
[2019-12-17 07:42] LABS: Albumin Level 2.3 gm/dl (3.4-5.0); BUN Creatinine Ratio 9.5 (10-20); Calcium 8.1 mg/dl (8.5-10.1); Creatinine Clr Calc Pharmacy 22.9 ml/min; Est GFR (African American) 34.5; Est GFR (Non-African American) 29.7; Potassium 3.4 mmol/L (3.5-5.1)
[2019-12-17 07:44] LABS: Albumin Globulin Ratio 0.7 (0.9-2); Bilirubin,Total 0.6 mg/dl (0.2-1); Globulin 3.2 gm/dl (2.5-4.0); Total Protein 5.5 gm/dl (6.4-8.2)
[2019-12-17] MEDS: INSULIN ASPART 100 UNITS/ML 3 ML PEN SC SCH ×4 (07:46→21:30)
[2019-12-17] MEDS: METOPROLOL TARTRATE 25 MG TAB PO SCH ×2 (07:47→20:45)
[2019-12-17 07:56] LABS: Schistocytes 1+
--- NOTE | 2019-12-17 09:14 | Electrocardiogram Report ---
Test Reason : Blood Pressure : / mmHG Vent. Rate : 095 BPM Atrial Rate : 095 BPM P-R Int : 198 ms QRS Dur : 094 ms QT Int : 276 ms P-R-T Axes : -06 - 021 degrees QTc Int : 346 ms Normal sinus rhythm Nonspecific ST and T wave abnormality Abnormal ECG When compared with ECG of 16-DEC-2019 07:00, Nonspecific T wave abnormality, worse in Inferior leads Nonspecific T wave abnormality, worse in Anterolateral leads Confirmed by Dayron Gallego ([id number]) on 12/17/2019 9:14:08 AM Referred By: REFERRED SELF Confirmed By:Dayron Gallego
[2019-12-17] MEDS ORDERED: POTASSIUM CHLORIDE 20 MEQ TABCR PO ONE ×2 (09:15→14:00)
[2019-12-17] MEDS: AMIODARONE 200 MG TAB PO SCH ×2 (10:23→22:39)
--- NOTE | 2019-12-17 13:32 | Surgery Progress Note ---
Date of Service doing better, no abdominal pain, tolerated clear diet, no nausea, no vomiting, December 17, 2019 Assessment & Plan (1) SBO (small bowel obstruction): DDX: enteritis, metastatic disease, or chemotherapy induced enteritis?? -vitals stable - minimal NGT output in last 24 hours, 40 cc - abdomen still distended, mildly improved today but passing small amounts of flatus and liquid stool - KUB today showing partial SBO, contrast and gas seen in colon however Plan: Given KUB showing gas and contrast in colon, complete obstruction is ruled out. Remove NGT, start clear liquids Dulcolax suppository PT/OT consulted Continue ambulation to increase GI motility Dr. Mclain covering this weekend Dr. Frias was present during my examination and agrees with above. 12/15/2019 10:34AM PSBO, KUB - less small bowel distend, but pt is still can not tolerated diet, possible PSBO, I recommend to do small bowel follow through study, D/W benefits, risks and alternatives of the the study, pt understood, she agrees with the study. will F/U 12/16/2019 11:22AM doing better, pull out NG, clear diet, will F/U 12/17/2019 1:29PM tolerated diet, soft diet today, possible discharge home tomorrow,if pt tolerate the diet. sign off today, please call with questions, follow up me in 2 weeks, thanks Subjective No acute events overnight. Patient sitting up in chair, in no acute distress. She was switched to p.o. amiodarone yesterday 200 mg twice a day, and metoprolol was decreased to 12.5 twice a day. She is tolerating a liquid diet. Denies any abdominal pain, nausea or vomiting. Says she had some soft/liquid bowel movement earlier. She is passing gas. Denies any fevers or chills, also denies any chest pain shortness of breath or cough. She was told earlier today that her diet can be advanced (surgical service ?). Physical Exam Constitutional: WD/WN, vitals as above well developed and well nourished Eyes: PERRL, conjunctivae normal, anicteric sclerae ENMT: external ear and nose normal, oropharynx normal Neck: trachea midline, no thyromegaly Respiratory: normal respiratory effort, lungs clear to auscultation normal respiratory effort Cardiovascular: RRR, no murmur, no edema Gastrointestinal (Abdomen): Percussion/Palpation: abdomen soft NT, ND , BS + Musculoskeletal: no cyanosis or clubbing, extremities motor strength 5/5 Skin: no rashes, warm and dry Neurologic: awake Psychiatric: Orientation: alert and oriented x 3 Results & Data Vital Signs (Past 12 Hours) Vital Signs Temp Pulse Pulse Resp BP Pulse Ox 12/17/19 11:29 36.7 C 94 H 18 126/78 98 12/17/19 08:00 102 H 12/17/19 07:46 36.7 C 111 H 18 160/76 H 12/17/19 03:17 36.8 C 93 H 18 137/64 93 Laboratory Results Abnormal lab results 12/16/19 12/16/19 12/17/19 Range/Units 16:26 20:28 06:34 WBC 11.64 H (4.8-10.8) K/uL RBC 2.47 L (4.2-5.4) M/uL Hgb 7.8 L (12.0-16.0) g/dL Hct 23.6 L (37-47) % RDW Std Deviation 54.9 H (36.4-46.3) fL RDW Coeff of Jennifer 15.8 H (11.5-14.5) % Immature Gran # (Auto) 0.05 H (0.00-0.02) K/uL Neut # (Auto) 8.68 H (1.4-6.5) K/uL Lymph # (Auto) 0.90 L (1.2-3.4) K/uL [place] # (Auto) 1.27 H (0.11-0.59) K/uL Eos # (Auto) 0.72 H (0-0.5) K/uL Potassium (3.5-5.1) mmol/L Creatinine (0.6-1.2) mg/dl BUN/Creatinine Ratio (10-20) Glucose (70-99) mg/dl POC Glucose 181 H 179 H (70-99) mg/dl Calcium (8.5-10.1) mg/dl AST (15-37) U/L ALT (12-78) U/L Alkaline Phosphatase (45-117) U/L Total Protein (6.4-8.2) gm/dl Albumin (3.4-5.0) gm/dl Albumin/Globulin Ratio (0.9-2) 12/17/19 12/17/19 12/17/19 Range/Units 06:34 07:25 11:11 WBC (4.8-10.8) K/uL RBC (4.2-5.4) M/uL Hgb (12.0-16.0) g/dL Hct (37-47) % RDW Std Deviation (36.4-46.3) fL RDW Coeff of Jennifer (11.5-14.5) % Immature Gran # (Auto) (0.00-0.02) K/uL Neut # (Auto) (1.4-6.5) K/uL Lymph # (Auto) (1.2-3.4) K/uL [place] # (Auto) (0.11-0.59) K/uL Eos # (Auto) (0-0.5) K/uL Potassium 3.4 L (3.5-5.1) mmol/L Creatinine 1.58 H (0.6-1.2) mg/dl BUN/Creatinine Ratio 9.5 L (10-20) Glucose 146 H (70-99) mg/dl POC Glucose 140 H 135 H (70-99) mg/dl Calcium 8.1 L (8.5-10.1) mg/dl AST 91 H (15-37) U/L ALT 100 H (12-78) U/L Alkaline Phosphatase 188 H (45-117) U/L Total Protein 5.5 L (6.4-8.2) gm/dl Albumin 2.3 L (3.4-5.0) gm/dl Albumin/Globulin Ratio 0.7 L (0.9-2)
--- NOTE | 2019-12-17 13:47 | Cardiology Progress Note ---
Date of Service December 17, 2019 Assessment & Plan (1) Paroxysmal atrial fibrillation: (2) Atrial flutter: (3) Hypokalemia: (4) Hypomagnesemia: (5) Small bowel obstruction: Continue oral amiodarone 200 mg twice daily. Conitune metoprolol to 12.5 mg twice daily. Discontinue IV hydration. 20 mEq potassium supplementation ordered. Maintain serum potassium greater than 3.5. Repeat BMP in AM. Subjective Patient seen and examined at the bedside. Remains in sinus rhythm overnight. Abdominal discomfort improved. Tolerating medications and diet. Lower extremity edema noted. Denies orthopnea or PND. Physical Exam Constitutional: well developed, well nourished and + ill appearing; no acute distress Respiratory: no respiratory distress, no labored breathing, no retractions and no cough Auscultation: no crackles, no rales, no rhonchi and no wheezes Cardiovascular: Rate/Rhythm: regular rhythm Heart Sounds: normal S1 and normal S2; no murmur Vessels: no JVD Extremities: + edema (1+ B/l pedal, ankle and pretibial edema) Gastrointestinal (Abdomen): Inspection/Auscultation: abdomen not distended and + abnormal bowel sounds Percussion/Palpation: abdomen soft; abdomen nontender, no guarding and abdomen not rigid Musculoskeletal: Head/Neck/Chest: normocephalic and head atraumatic Skin: no rashes, warm and dry Neurologic: moves all extremities; no focal motor deficits Speech / Cognition: normal speech Psychiatric: A+Ox3, euthymic affect Results & Data Vital Signs (Past 12 Hours) Vital Signs Temp Pulse Pulse Resp BP Pulse Ox 12/17/19 11:29 36.7 C 94 H 18 126/78 98 12/17/19 08:00 102 H 12/17/19 07:46 36.7 C 111 H 18 160/76 H 12/17/19 03:17 36.8 C 93 H 18 137/64 93 (1) Atrial flutter Atrial flutter type: unspecified Qualified Code(s): I48.92 - Unspecified atrial flutter
[2019-12-17] MEDS: LATANOPROST 0.005% OP SOLN 2.5 ML BTL OPL SCH (20:45)
[2019-12-17] MEDS: AMITRIPTYLINE HCL 25 MG TAB PO SCH (20:45)
[2019-12-18] MEDS: METOPROLOL TARTRATE 1 MG/ML VIAL IV PRN (03:56)
[2019-12-18 07:03] LABS: Albumin Level 2.2 gm/dl (3.4-5.0); BUN Creatinine Ratio 7.4 (10-20); Calcium 8.3 mg/dl (8.5-10.1); Creatinine Clr Calc Pharmacy 24.1 ml/min; Est GFR (African American) 36.7; Est GFR (Non-African American) 31.7; Magnesium 1.6 mg/dl (1.8-2.4); Potassium 4.3 mmol/L (3.5-5.1)
[2019-12-18 07:06] LABS: Albumin Globulin Ratio 0.6 (0.9-2); Bilirubin,Total 0.7 mg/dl (0.2-1); Globulin 3.5 gm/dl (2.5-4.0); Phosphorus 2.5 mg/dl (2.5-4.9); Total Protein 5.7 gm/dl (6.4-8.2)
--- NOTE | 2019-12-18 07:38 | Hospitalist Progress Note ---
Date of Service December 18, 2019 Assessment & Plan (1) SBO (small bowel obstruction): possible Secondary to peritoneal metastasis versus ileus Metastatic breast cancer status post surgery, radiation (chemotherapy currently on hold) -admission CT chest 1. Significant interval worsening of local small bowel wall thickening in a loop of small bowel in the superior pelvis. The appearance is nonspecific and could raise concern for focal severe infectious or inflammatory enteritis, intramural hematoma, post radiation change, or focal angioedema among other etiologies. An ischemic etiology is not excluded though no pneumatosis is evident and the focal distribution may argue against this diagnosis. No perforation. 2. Resulting high-grade partial or complete small bowel obstruction. 3. Nodular infiltration of the omentum and peritoneum especially in the left upper quadrant. It is difficult to exclude peritoneal metastatic disease or peritonitis. Correlate with the patient's oncologic history. Follow-up is warranted. 4. 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 Chronic right renal atrophy. 5. Volume overload may be indicated by the ascites versus a reactive etiology. 6. Decreased right middle lobe consolidation with increased right basilar atelectasis in the setting of effusion. -NG tube was started and general surgery was consulted to follow patient with hospitalist team -12/11/2019 updates: NG tube. She was able to ambulate with NG tube temporarily clamped. Patient reports abdomen pain improving. However AM KUB still showing distended small bowel loops.Patient gave permission for daughter who is a nurse ([phone]) to be updated and this called was made to daughter. -12/12/2019 update: Minimal NG tube output, no abdomen pain today, abdomen still somewhat firm, patient has had some bowel movements in recent days. patient reports that Oncology Dr. Toribio came by earlier today and spoke with her (no acute hematology plans for cancer treatment until outpatient follow up after this hospital stay. telemetry intermittently periods atrial flutter with sinus rhythm and mild tachycardia. patient had NG tube removed by general surgery team. patient ate liquid diet for dinner and subsequent vomiting 30 minutes later -12/13/2019: NG tube replaced as mildly more dilated small bowels on KUB. pain medications modified to eliminate all narcotics all together if abdominal pain. avoided acetaminophen because of transaminitis. limited pain medication to Toradol -12/14/2019: There is a nasogastric tube within the stomach. There is persistent small bowel dilatation with small bowel loops measuring up to 5.4 cm in diameter. AST and ALT improving but more SOLITARIO likely because of Toradol. will go back to acetaminophen prn. patient's daughter has been concerned about poor nutritional status despite recent D5 in IV hydration when patient on NG tube and has inquired about possible parental nutrition. PICC line was attempted to be placed but not successful and then patient did not wish for PICC line -12/15/2019: KUB appears to show more improvements of bowel dilation, patient had small bowel follow through as per general surgery team -12/16/2019 updates: Patient made multiple bowel movements since 12/17/2019 which nurse describes as watery and patient reported there were 8 bowel movements. General surgery took off the NG tube on AM of 12/16/2019. Patient still on IV amio darone. Her current peripheral line access is bilateral feet. Discussed that with patient that if any further issues with IV line access that she would be agreeable for PICC line which she consented for for possibility of parental nutrition but then she deferred when unsuccessful placement attempt on 12/14/2019. Hopefully patient can take liquid diet and avoid NG tube replacement and that cardiology service can transition off IV amiodarone in near future. 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 Chronic right renal atrophy. -no acute interventions as per urology and manage with IV hydration -recent fluctuations with creatinine but generally under 1.5 as of 12/13/2019 -creatinine elevated to be 1.97 on 12/14/2019, patient on IV fluids with dextrose for nutrition and hydration and to receive a total of 2 IV fluid boluses of 250 ml each. stopped Toradol from pain medication list -creatinine 1.83 on 12/15/2019 Now Cr 1.50 (12/17) -Recommend to follow-up BMP, in about a week as outpatient Paroxysmal Atrial Fibrillation -patient has been noted to be between normal sinus rhythm and atrial flutter on this admission, however is off anticoagulation secondary to history of rectus sheath hematoma -metoprolol was titrated up when on NG tube on initially on this admission, but patient needed IV amiodarone which was started on 12/13/2019 to convert back to sinus rhythm from atrial flutter/atrial fibrillation with rapid ventricular response. converted at 2:45 PM on 12/13/2019 and cardiology service advised to have IV amiodarone still running. cardiology service then added scheduled metoprolol with the IV amiodarone on 12/14/2019 -12/16/2019: appreciated further cardiology recommendations, IV amiodarone stopped now, switch to p.o. amiodarone 200 BID and metoprolol was decreased to 12.5 twice daily -will discharge patient on amiodarone 200 mg twice a day and metoprolol 12.5 mg twice a day, she will follow-up with cardiology Hypomagnesemia -serum magnesium 1.6 on 12/13/2019, replaced while inpatient -will discharge on magnesium supplement, recommend to recheck magnesium level as outpatient Transaminitis -rising AST/ALT noted on 12/13/2019 -ultrasound of gallbladder 12/14/2019: Mildly distended gallbladder containing sludge. There is minimal gallbladder wall thickening. The technologist reports a negative sonographic Magallanes sign. No focal hepatic masses. No evidence of ductal dilatation. Nondiagnostic evaluation of pancreas. Right-sided hydronephrosis. Ascites -minimize acetaminophen to 650 mg IV q8 hours for pain or fever. AST/ALT improving but normalized as of 12/16/2019 -Recommend to recheck as outpatient chronic anemia -hemoglobin stable between high 7s and mid 8 ranges, follow-up H&H as outpatient hypertension -Current blood pressure 150s over 70s -can restart amlodipine on discharge hyperlipidemia -on statin Rx Type 2 diabetes -recent hemoglobin A1c of 6.20 October 2019 -on sliding scale insulin for now -Restart home meds on discharge DVT prophylaxis with SCDs DNR Daughter Elaina Admission and Anticipated Discharge Date Admission Date: December 08, 2019 Subjective Patient sitting up in a chair, in no acute distress, inquiring about going home. No acute events overnight. She is tolerating diet without difficulty. She is having bowel movements, no abdominal pain, and no nausea. Surgery signed off yesterday. Patient also denies any fevers, chills, chest pain, shortness of breath, palpitations. Review of Systems Review of Systems: All systems reviewed & are unremarkable except as noted in HPI & below Constitutional: no fever and no chills Respiratory: no cough and no dyspnea Cardiovascular: no chest pain and no palpitations Gastrointestinal: no abdominal pain, no nausea, no vomiting and no constipation Physical Exam Physical Exam: Constitutional: Elderly female sitting up in a chair, in no acute distress, WD/WN, vitals as above, comfortable Eyes: PERRL, conjunctivae normal, anicteric sclerae EOM intact bilaterally ENMT: external ear and nose normal, oropharynx normal Neck: normal visual inspection Respiratory: normal respiratory effort, lungs clear to auscultation Cardiovascular: Rate/Rhythm: regular rate (heart rates high 90s to low 100s) Gastrointestinal (Abdomen): normal bowel sounds, soft, nondistended, nontender to palpation Musculoskeletal: Head/Neck/Chest: normocephalic and head atraumatic, moves remedies spontaneously, trace lower extremity edema Neurologic: PERRL, EOMI, accommodation nl, no face palsy, no dysarthria, moves extremities spontaneously Psychiatric: A+Ox3, euthymic affect Results & Data Results & Data ([facility]) Vital Signs (Past 12 Hours) Vital Signs Temp Pulse Pulse Resp BP Pulse Ox 12/18/19 03:56 138 H 12/18/19 03:03 37.2 C 108 H 17 155/61 H 95 12/17/19 23:26 36.9 C 92 H 18 154/82 H 95 12/17/19 19:59 37.0 C 104 H 18 134/69 90 Laboratory Results 12/18/19 12/18/19 12/17/19 Range/Units 07:04 06:06 20:20 Schistocytes Sodium 140 (136-145) mmol/L Potassium 4.3 D (3.5-5.1) mmol/L Chloride 107 (98-107) mmol/L Carbon Dioxide 25 (21-32) mmol/L Anion Gap 8.0 (3-11) BUN 11 (7-18) mg/dl Creatinine 1.50 H (0.6-1.2) mg/dl Est Cr Clr Drug Dosing 24.1 ml/min Est GFR ( Amer) 36.7 Est GFR (Non-Af Amer) 31.7 BUN/Creatinine Ratio 7.4 L (10-20) Glucose 116 H (70-99) mg/dl POC Glucose 139 H 105 H (70-99) mg/dl Calcium 8.3 L (8.5-10.1) mg/dl Phosphorus 2.5 (2.5-4.9) mg/dl Magnesium 1.6 L (1.8-2.4) mg/dl Total Bilirubin 0.7 (0.2-1) mg/dl AST 132 H (15-37) U/L ALT 100 H (12-78) U/L Alkaline Phosphatase 167 H (45-117) U/L Total Protein 5.7 L (6.4-8.2) gm/dl Albumin 2.2 L (3.4-5.0) gm/dl Globulin 3.5 (2.5-4.0) gm/dl Albumin/Globulin Ratio 0.6 L (0.9-2) 12/17/19 12/17/19 12/17/19 Range/Units 16:12 11:11 06:34 Schistocytes Sodium 137 (136-145) mmol/L Potassium 3.4 L (3.5-5.1) mmol/L Chloride 105 (98-107) mmol/L Carbon Dioxide 26 (21-32) mmol/L Anion Gap 6.0 (3-11) BUN 15 (7-18) mg/dl Creatinine 1.58 H (0.6-1.2) mg/dl Est Cr Clr Drug Dosing 22.9 ml/min Est GFR ( Amer) 34.5 Est GFR (Non-Af Amer) 29.7 BUN/Creatinine Ratio 9.5 L (10-20) Glucose 146 H (70-99) mg/dl POC Glucose 193 H 135 H (70-99) mg/dl Calcium 8.1 L (8.5-10.1) mg/dl Phosphorus (2.5-4.9) mg/dl Magnesium (1.8-2.4) mg/dl Total Bilirubin 0.6 (0.2-1) mg/dl AST 91 H (15-37) U/L ALT 100 H (12-78) U/L Alkaline Phosphatase 188 H (45-117) U/L Total Protein 5.5 L (6.4-8.2) gm/dl Albumin 2.3 L (3.4-5.0) gm/dl Globulin 3.2 (2.5-4.0) gm/dl Albumin/Globulin Ratio 0.7 L (0.9-2) 12/17/19 Range/Units 06:34 Schistocytes 1+ Sodium (136-145) mmol/L Potassium (3.5-5.1) mmol/L Chloride (98-107) mmol/L Carbon Dioxide (21-32) mmol/L Anion Gap (3-11) BUN (7-18) mg/dl Creatinine (0.6-1.2) mg/dl Est Cr Clr Drug Dosing ml/min Est GFR ( Amer) Est GFR (Non-Af Amer) BUN/Creatinine Ratio (10-20) Glucose (70-99) mg/dl POC Glucose (70-99) mg/dl Calcium (8.5-10.1) mg/dl Phosphorus (2.5-4.9) mg/dl Magnesium (1.8-2.4) mg/dl Total Bilirubin (0.2-1) mg/dl AST (15-37) U/L ALT (12-78) U/L Alkaline Phosphatase (45-117) U/L Total Protein (6.4-8.2) gm/dl Albumin (3.4-5.0) gm/dl Globulin (2.5-4.0) gm/dl Albumin/Globulin Ratio (0.9-2) Medications Administered Current Inpatient Medications Amiodarone HCl (Cordarone) 200 mg PO Q12H NENA Stop: 01/15/20 10:14 Last Admin: 12/17/19 22:39 Dose: 200 mg Documented by: Amitriptyline HCl (Elavil) 25 mg PO HS NENA Stop: 01/14/20 20:59 Last Admin: 12/17/19 20:45 Dose: 25 mg Documented by: Dextrose (Dextrose 50%) 25 - 50 ml IV UD PRN; Protocol PRN Reason: Hypoglycemia Protocol Stop: 01/07/20 22:32 Glucagon (Glucagen) 1 mg SQ UD PRN; Protocol PRN Reason: Hypoglycemia Protocol Stop: 01/07/20 22:32 Glucose (Dex4 Glucose) 4 - 8 tabs PO UD PRN; Protocol PRN Reason: Hypoglycemia Protocol Stop: 01/07/20 22:32 Glucose (Glucose 40%) 15 - 30 gm PO UD PRN; Protocol PRN Reason: Hypoglycemia Protocol Stop: 01/07/20 22:32 Promethazine HCl 6.25 mg/ (Sodium Chloride) 50.25 mls @ 201 mls/hr IV Q6H PRN PRN Reason: Nausea And Vomiting Stop: 01/12/20 16:58 Last Infusion: 12/13/19 19:31 Dose: Infused Documented by: Dextrose (D10w) 1,000 mls @ 0 mls/hr IV .Q0M PRN PRN Reason: protocol (see label comments) Stop: 01/13/20 19:59 Magnesium Sulfate/Dextrose (Magnesium Sulfate / D5w) 1 gm in 100 mls @ 50 mls/hr IV ONE ONE Stop: 12/18/19 09:32 Insulin Aspart (Novolog Flexpen) 0 units SC [facility]; Protocol Stop: 01/15/20 16:29 Last Admin: 12/17/19 21:30 Dose: Not Given Documented by: Latanoprost (Xalatan Oph) 1 drops OPL HS [facility] Stop: 01/08/20 20:59 Last Admin: 12/17/19 20:45 Dose: 1 drops Documented by: Metoprolol Tartrate (Lopressor) 2.5 mg IV Q6 PRN PRN Reason: Tachycardia Stop: 01/08/20 00:00 Last Admin: 12/18/19 03:56 Dose: 2.5 mg Documented by: Metoprolol Tartrate (Lopressor) 12.5 mg PO BID [facility] Stop: 01/15/20 20:59 Last Admin: 12/17/19 20:45 Dose: 12.5 mg Documented by: Miscellaneous (Carbohydrates For Hypoglycemia) 15 - 30 gm PO UD PRN PRN Reason: Hypoglycemia Protocol Stop: 01/07/20 22:32
[2019-12-18] MEDS ORDERED: MAGNESIUM SULFATE / D5W 1 GM/100 ML BAG IV ONE (08:00)
[2019-12-18] MEDS: METOPROLOL TARTRATE 25 MG TAB PO SCH (08:26)
[2019-12-18] MEDS: INSULIN ASPART 100 UNITS/ML 3 ML PEN SC SCH ×2 (08:53→12:05)
[2019-12-18] MEDS: AMIODARONE 200 MG TAB PO SCH (10:07)
--- NOTE | 2019-12-18 14:25 | Discharge Summary ---
Date of Service December 18, 2019 Admission HPI Per Admitting Provider History obtained from patient and records. Medical history significant for metastatic breast cancer status post surgery, radiation (chemotherapy currently on hold), PAF (off anticoagulation secondary to history of rectus sheath hematoma), hypertension, hyperlipidemia, DM 2 insulin requiring, temporal arthritis as per records, chronic anemia (baseline hemoglobin 8-9). Recent confinement 2 weeks ago for right-sided pneumonia. Patient discharged on Augmentin course. 3 days history of upper abdominal pain going to the back followed by nausea, vomiting, watery diarrhea symptoms. No chest pain, no S OB. No fever, no chills. Poor appetite. Patient brought to the ER for evaluation. 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 Admission Exam Per Admitting Provider GENERAL: Comfortable, pleasant, no respiratory distress SKIN: Pallor , warm HEENT: Bespectacled, pale palpebral conjunctivae, no ptosis, dry buccal mucosa NECK : Supple, no tenderness CHEST : CTA, no tenderness HEART : RRR, no obvious murmurs ABDOMEN: Marked distention with tenderness EXTREMITIES : No LE swelling/tenderness, no other conspicuous deformities noted NEUROLOGIC : Coherent, no facial asymmetry, no other gross focality Principal Diagnosis SBO (small bowel obstruction) Metastatic breast cancer status post surgery and radiation Acute Renal Failure secondary to vomiting, diarrhea (renal function improved) Paroxysmal Atrial Fibrillation Transaminitis Discharge Exam Constitutional: Elderly female sitting up in a chair, in no acute distress, WD/WN, vitals as above, comfortable Eyes: PERRL, conjunctivae normal, anicteric sclerae EOM intact bilaterally ENMT: external ear and nose normal, oropharynx normal Neck: normal visual inspection Respiratory: normal respiratory effort, lungs clear to auscultation Cardiovascular: Rate/Rhythm: regular rate (heart rates 90s) Gastrointestinal (Abdomen): normal bowel sounds, soft, nondistended, nontender to palpation Musculoskeletal: Head/Neck/Chest: normocephalic and head atraumatic, moves remedies spontaneously, trace lower extremity edema Neurologic: PERRL, EOMI, accommodation nl, no face palsy, no dysarthria, moves extremities spontaneously Psychiatric: A+Ox3, euthymic affect Discharge Data Allergies Allergy/AdvReac Type Severity Reaction Status Date / Time Influenza Virus Vaccines Allergy Mild SWELLING Verified 12/08/19 14:55 Consultations 12/08/19 20:28 ED Decision to Admit Stat 12/08/19 22:33 Consult General Surgery Routine 12/09/19 07:58 Consult Urology Routine 12/11/19 11:06 Consult Oncology Routine 12/13/19 07:05 Consult Cardiology Routine 12/13/19 12:05 Consult Case Management - Discharge Planning Routine Ordered Studies 12/08/19 16:58 CT abd pelvis oral con only Stat IMPRESSION: 1. Significant interval worsening of local small bowel wall thickening in a loop of small bowel in the superior pelvis. The appearance is nonspecific and could raise concern for focal severe infectious or inflammatory enteritis, intramural hematoma, post radiation change, or focal angioedema among other etiologies. An ischemic etiology is not excluded though no pneumatosis is evident and the focal distribution may argue against this diagnosis. No perforation. 2. Resulting high-grade partial or complete small bowel obstruction. 3. Nodular infiltration of the omentum and peritoneum especially in the left upper quadrant. It is difficult to exclude peritoneal metastatic disease or peritonitis. Correlate with the patient's oncologic history. Follow-up is warranted. 4. 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 Chronic right renal atrophy. 5. Volume overload may be indicated by the ascites versus a reactive etiology. 6. Decreased right middle lobe consolidation with increased right basilar atelectasis in the setting of effusion. 12/13/19 08:04 US gallbladder Routine IMPRESSION: 1. Mildly distended gallbladder containing sludge. There is minimal gallbladder wall thickening. The technologist reports a negative sonographic Magallanes sign 2. No focal hepatic masses. No evidence of ductal dilatation 3. Nondiagnostic evaluation of pancreas 4. Right-sided hydronephrosis 5. Ascites 12/15/19 10:26 FL small bowel follow through Routine IMPRESSION: 1. Small bowel dilatation 2. Prolonged small bowel transit time. 3. No discrete transition zones identified. Hospital Course (1) SBO (small bowel obstruction): possible Secondary to peritoneal metastasis versus ileus Metastatic breast cancer status post surgery, radiation (chemotherapy currently on hold) -admission CT chest 1. Significant interval worsening of local small bowel wall thickening in a loop of small bowel in the superior pelvis. The appearance is nonspecific and could raise concern for focal severe infectious or inflammatory enteritis, intramural hematoma, post radiation change, or focal angioedema among other etiologies. An ischemic etiology is not excluded though no pneumatosis is evident and the focal distribution may argue against this diagnosis. No perforation. 2. Resulting high-grade partial or complete small bowel obstruction. 3. Nodular infiltration of the omentum and peritoneum especially in the left upper quadrant. It is difficult to exclude peritoneal metastatic disease or peritonitis. Correlate with the patient's oncologic history. Follow-up is warranted. 4. 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 Chronic right renal atrophy. 5. Volume overload may be indicated by the ascites versus a reactive etiology. 6. Decreased right middle lobe consolidation with increased right basilar atelectasis in the setting of effusion. -NG tube was started and general surgery was consulted to follow patient with hospitalist team -12/11/2019 updates: NG tube. She was able to ambulate with NG tube temporarily clamped. Patient reports abdomen pain improving. However AM KUB still showing distended small bowel loops.Patient gave permission for daughter who is a nurse ([phone]) to be updated and this called was made to daughter. -12/12/2019 update: Minimal NG tube output, no abdomen pain today, abdomen still somewhat firm, patient has had some bowel movements in recent days. patient reports that Oncology Dr. Toribio came by earlier today and spoke with her (no acute hematology plans for cancer treatment until outpatient follow up after this hospital stay. Currently appointment scheduled with Dr. Toribio on January 19 telemetry intermittently periods atrial flutter with sinus rhythm and mild tachycardia. patient had NG tube removed by general surgery team. patient ate liquid diet for dinner and subsequent vomiting 30 minutes later -12/13/2019: NG tube replaced as mildly more dilated small bowels on KUB. pain medications modified to eliminate all narcotics all together if abdominal pain. avoided acetaminophen because of transaminitis. limited pain medication to Toradol -12/14/2019: There is a nasogastric tube within the stomach. There is persistent small bowel dilatation with small bowel loops measuring up to 5.4 cm in diameter. AST and ALT improving but more SOLITARIO likely because of Toradol. will go back to acetaminophen prn. patient's daughter has been concerned about poor nutritional status despite recent D5 in IV hydration when patient on NG tube and has inquired about possible parental nutrition. PICC line was attempted to be placed but not successful and then patient did not wish for PICC line -12/15/2019: KUB appears to show more improvements of bowel dilation, patient had small bowel follow through as per general surgery team -12/16/2019 updates: Patient made multiple bowel movements since 12/17/2019 which nurse describes as watery and patient reported there were 8 bowel movements. General surgery took off the NG tube on AM of 12/16/2019. Patient still on IV amiodarone. Her current peripheral line access is bilateral feet. Discussed that with patient that if any further issues with IV line access that she would be agreeable for PICC line which she consented for for possibility of parental nutrition but then she deferred when unsuccessful placement attempt on 12/14/2019. Hopefully patient can take liquid diet and avoid NG tube replacement and that cardiology service can transition off IV amiodarone in near future. 12/17/2019 patient tolerated clear diet, plan to advance diet 12/18/2019 -patient tolerates diet, surgery signed off yesterday, plan to discharge home Postobstructive diarrhea -C.difficile is negative Acute Renal Failure Obstructive uropathy on CT possibly contributory - CT chest: Findings suggest bilateral ureteropelvic junction obstruction worse on the right. Chronic right renal atrophy. -no acute interventions as per urology and manage with IV hydration -recent fluctuations with creatinine but generally under 1.5 as of 12/13/2019 -creatinine elevated to be 1.97 on 12/14/2019, patient on IV fluids with dextrose for nutrition and hydration and to receive a total of 2 IV fluid boluses of 250 ml each. stopped Toradol from pain medication list -creatinine 1.83 on 12/15/2019 Now Cr 1.50 (12/17) -Recommend to follow-up BMP, in about a week as outpatient Paroxysmal Atrial Fibrillation -patient has been noted to be between normal sinus rhythm and atrial flutter on this admission, however is off anticoagulation secondary to history of rectus sheath hematoma -metoprolol was titrated up when on NG tube on initially on this admission, but patient needed IV amiodarone which was started on 12/13/2019 to convert back to sinus rhythm from atrial flutter/atrial fibrillation with rapid ventricular response. converted at 2:45 PM on 12/13/2019 and cardiology service advised to have IV amiodarone still running. cardiology service then added scheduled metoprolol with the IV amiodarone on 12/14/2019 -12/16/2019: appreciated further cardiology recommendations, IV amiodarone stopped now, switch to p.o. amiodarone 200 BID and metoprolol was decreased to 12.5 twice daily -will discharge patient on amiodarone 200 mg twice a day and metoprolol 12.5 mg twice a day, she will follow-up with cardiology Hypomagnesemia -serum magnesium 1.6 on 12/13/2019, replaced while inpatient -will discharge on magnesium supplement, recommend to recheck magnesium level as outpatient Transaminitis -rising AST/ALT noted on 12/13/2019 -ultrasound of gallbladder 12/14/2019: Mildly distended gallbladder containing sludge. There is minimal gallbladder wall thickening. The technologist reports a negative sonographic Magallanes sign. No focal hepatic masses. No evidence of ductal dilatation. Nondiagnostic evaluation of pancreas. Right-sided hydronephrosis. Ascites -minimize acetaminophen to 650 mg IV q8 hours for pain or fever. AST/ALT improving but normalized as of 12/16/2019 -Recommend to recheck as outpatient chronic anemia -hemoglobin stable between high 7s and mid 8 ranges, follow-up H&H as outpatient hypertension -Current blood pressure 150s over 70s -can restart amlodipine on discharge hyperlipidemia -on statin Rx Type 2 diabetes -recent hemoglobin A1c of 6.20 October 2019 -on sliding scale insulin for now -Restart home meds on discharge Total Time Total Time Spent Total Time Spent (In Minutes): 40 Total Time Includes: Examination of the Patient, Discharge Planning, Medication Reconciliation and Communication With Other Providers Discharge Plan Discharge Items Patient Disposition: Home - Self-Care Reason For Visit: ARF SBO IV BBLOCKER Discharge Diagnosis: SBO (small bowel obstruction) Metastatic breast cancer status post surgery and radiation Acute Renal Failure secondary to vomiting, diarrhea (renal function improved) Paroxysmal Atrial Fibrillation Transaminitis Activity: Per Instructions section Non-emergency contact: Primary Care Provider and Transportation Security Officer Call non-emergency contact if: you have any medication questions and your symptoms worsen Follow-up/Referrals: Dany Toribio DO [Physician] - 01/20/20 12:50 pm Mana Thompson DO [Primary Care Provider] - 12/22/19 11:00 am (This appointment is with Dr. Artis.) Diet: Carb Consistent or DM2 Diet Texture: Dental soft (bite-sized) Addtl Attending Provider Instructions: Follow-up with your primary care doctor within 1 week. The appointment is going to be scheduled for you prior to your discharge. At that time you will need blood work, CBC, CMP. Also recommend to check your magnesium and phosphorus level. You were started on a new medication, amiodarone 200 mg twice a day. This is for your atrial fibrillation, and cardiology will follow-up with you. Your metoprolol was also decreased to 12.5 mg twice a day. Magnesium supplement was also sent to your pharmacy, please take it daily until otherwise advised by your primary care doctor. Pending Studies at Discharge: No Stand-Alone Forms: My [facility] [employer], Smoking Cessation Medications and DC Order Prescriptions: New amiodarone 200 mg Tablet 200 mg PO Q12H 14 Days Qty: 28 RF: 0 metoprolol tartrate 25 mg Tablet 12.5 mg PO BID 14 Days Qty: 14 RF: 0 magnesium oxide 400 mg magnesium tablet 400 mg PO DAILY Qty: 10 RF: 0 Continued multivitamin Tablet 1 tab PO QAM RF: 0 alprazolam [Xanax] 0.25 mg Tablet 0.25 mg PO HS PRN (Reason: Anxiety) RF: 0 ascorbic acid (vitamin C) [Vitamin C] 500 mg Tablet 500 mg PO QAM RF: 0 escitalopram oxalate [Lexapro] 10 mg Tablet 10 mg PO QAM RF: 0 rosuvastatin [Crestor] 20 mg Tablet 20 mg PO QAM RF: 0 calcium carbonate-vitamin D3 [Os-Arcadio 500 + D3] 500 mg(1,250mg) -200 unit Tablet 1 tab PO BID RF: 0 diphenhydramine-acetaminophen [Tylenol PM Extra Strength] 25-500 mg Tablet 1 tab PO HS PRN (Reason: Sleep and Pain) RF: 0 Lactinex 1 million cell tablet,chewable 1 tab PO TID Qty: 30 RF: 0 cranberry 400 mg Capsule 400 mg PO QAM RF: 0 Tradjenta 5 mg Tablet 5 mg PO QAM RF: 0 ondansetron HCl [Zofran] 4 mg Tablet 4 mg PO Q6H PRN (Reason: Nausea) RF: 0 latanoprost 0.005 % Drops 1 drp OPL HS RF: 0 amlodipine 5 mg Tablet 5 mg PO QAM RF: 0 amitriptyline 25 mg Tablet 25 mg PO HS RF: 0 esomeprazole magnesium [Nexium] 20 mg Capsule,Delayed Release(Dr/Ec) 20 mg PO QAM RF: 0 oxycodone-acetaminophen [Percocet] 5-325 mg Tablet 1 tab PO Q8H PRN (Reason: Pain) RF: 0 Ibrance 100 mg Capsule 100 mg PO DAILY RF: 0 Discontinued metoprolol tartrate 100 mg tablet 100 mg PO BID RF: 0 Discharge Orders: Discharge Order (Routine); Ordered 12/18/19 Ordered By: Davian Wang Admission Data Admit Date/Time: 12/08/19 21:18 Attending Provider: Davian Wang Admit Provider: Cruz Matute Primary Care Provider: Mana Thompson Other Providers: Cruz Matute ; Donis Andino ; Dayron Durham ; Ivan Welsh ; Alessio Shelby I. ; Ruperto Diamond ; Radha Ceballos ; Joanne Mclain ; Arturo Olivia ; Mana Mai ; Jerri Gaviria ; David Montoya ; Manju Davis ; Coco Steiner ; Dany Toribio V. ; David Timmons ; Shelton Armstrong
--- NOTE | 2019-12-18 16:53 | Cardiology Progress Note ---
Date of Service December 18, 2019 Assessment & Plan (1) Paroxysmal atrial fibrillation: (2) Atrial flutter: (3) Hypokalemia: (4) Hypomagnesemia: (5) Small bowel obstruction: Continue oral amiodarone 200 mg twice daily for 10 days then reduce dose to 200 mg daily. Conitune metoprolol to 12.5 mg twice daily. Outpatient cardiology follow-up in 2 weeks. Subjective Patient seen and examined the bedside. Abdominal discomfort has resolved. T olerating diet. Requesting discharge. Telemetry demonstrates sinus rhythm. Brief earnest of paroxysmal atrial fibrillation recorded overnight. No associated symptoms. Tolerating low-dose beta-moni and amiodarone. Review of Systems Review of Systems: All systems reviewed & are unremarkable except as noted in HPI & below Physical Exam Constitutional: well developed, well nourished and + ill appearing; no acute distress Respiratory: no respiratory distress, no labored breathing, no retractions and no cough Auscultation: no crackles, no rales, no rhonchi and no wheezes Cardiovascular: Rate/Rhythm: regular rhythm Heart Sounds: normal S1 and normal S2; no murmur Vessels: no JVD Extremities: + edema (1+ B/l pedal, ankle and pretibial edema) Gastrointestinal (Abdomen): Inspection/Auscultation: normal bowel sounds; abdomen not distended Percussion/Palpation: abdomen soft; abdomen nontender, no guarding and abdomen not rigid Musculoskeletal: Head/Neck/Chest: normocephalic and head atraumatic Skin: no rashes, warm and dry Neurologic: moves all extremities; no focal motor deficits Speech / Cognition: normal speech Psychiatric: A+Ox3, euthymic affect Results & Data Vital Signs (Past 12 Hours) Vital Signs Temp Pulse Pulse Resp BP BP Pulse Ox 12/18/19 14:11 36.7 C 95 H 18 155/61 H 154/77 H 96 12/18/19 08:00 93 H 12/18/19 07:59 36.7 C 95 H 18 154/77 H 96 (1) Atrial flutter Atrial flutter type: unspecified Qualified Code(s): I48.92 - Unspecified atrial flutter
== END 2019-12-18 15:41 | disposition home or self-care (01) | DRG 375 ==
LOC: ED 13:45 → SUATTDRO 21:18 → 2N 21:18 → 2S 12-13 11:55

== ENCOUNTER 2020-01-20 07:34 | Inpatient (IN) ==
[2020-01-20] MEDS ORDERED: CEFEPIME 2,000 MG/20 ML VIAL IV STA (08:22)
--- NOTE | 2020-01-20 08:28 | Emergency Department Note ---
History of Present Illness General Chief Complaint: Illness Time Seen by Provider: 01/20/20 08:09 Source: patient and family Mode of arrival: EMS Limitations: physical limitation History of Present Illness Provider complaint: fever, weakness and other (Shortness of breath, cough) This is an 84-year-old female who presents to the ED with a chief complaint of a cough that is nonproductive, shortness of breath, generalized weakness, nausea, vomiting and diarrhea. She vomited 3 times starting last night. She has had diarrhea starting last night as well. The patient feels very weak. She does have a history of anemia. She received 2 units of blood last Sunday. She does not wear home oxygen. Her oxygen saturations here were 84% on room air. Home Medications Home Medications Medication Instructions Recorded Confirmed Type alprazolam [Xanax] 0.25 mg PO HS PRN 03/28/18 01/20/20 History ascorbic acid (vitamin C) [Vitamin 500 mg PO QAM 03/28/18 01/20/20 History C] calcium carbonate-vitamin D3 1 tab PO BID 03/28/18 01/20/20 History [Os-Arcadio 500 + D3] escitalopram oxalate [Lexapro] 10 mg PO QAM 03/28/18 01/20/20 History multivitamin 1 tab PO QAM 03/28/18 01/20/20 History rosuvastatin [Crestor] 20 mg PO QAM 03/28/18 01/20/20 History Tradjenta 5 mg PO QAM 07/07/19 01/20/20 History cranberry 400 mg PO QAM 07/07/19 01/20/20 History amitriptyline 25 mg PO HS 07/12/19 01/20/20 History amlodipine 5 mg PO QAM 07/12/19 01/20/20 History esomeprazole magnesium [Nexium] 20 mg PO QAM 07/12/19 01/20/20 History latanoprost 1 drp OPL 07/12/19 01/20/20 History ondansetron HCl [Zofran] 4 mg PO Q6H PRN 07/12/19 01/20/20 History oxycodone-acetaminophen [Percocet] 1 tab PO Q8H PRN 10/01/19 01/20/20 History diphenhydramine-acetaminophen 1 tab PO HS PRN 11/24/19 01/20/20 History [Tylenol PM Extra Strength] amiodarone 200 mg PO DAILY 01/14/20 01/20/20 History metoprolol succinate [Toprol XL] 50 mg PO DAILY 01/14/20 01/20/20 History tramadol 50 mg PO DAILY 01/14/20 01/20/20 History Allergies Allergy/AdvReac Type Severity Reaction Status Date / Time Influenza Virus Vaccines Allergy Mild SWELLING Verified 01/20/20 07:58 Past Med/Surg History Medical History Acute hypoxemic respiratory failure Anxiety Arthritis Atrial tachycardia Cataracts, bilateral CKD (chronic kidney disease), stage III DM type 2 (diabetes mellitus, type 2) Dyslipidemia Goals of care, counseling/discussion HTN (hypertension) HX: breast cancer Metastatic breast cancer Paroxysmal atrial fibrillation S/P admission to ICU (intensive care unit) Temporal arteritis Surgical History H/O right mastectomy Jun 2018 History of appendectomy History of cataract surgery S/P partial colectomy Jul 2019 S/P LIZBETH-BSO Family History Mother Diabetes Social History Preferred Language: Italian Communication Ability: Effective 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 Beliefs That Will Affect Care: None marital status: Current Living Situation: Spouse Current Living Situation Comment: lives with Feels Safe at Home: Yes Smoking Status: Never smoker Hx Alcohol Use: No Hx Substance Use: No Review of Systems A total of 10 systems reviewed and were otherwise negative Physical Exam Vital Signs Vital Signs - 24 hr 01/20/20 07:45 01/20/20 09:03 01/20/20 09:29 Temperature 36.8 C Temperature Source Oral Pulse Rate 106 H Pulse Rate [Left Finger] 94 H 92 H Respiratory Rate 16 24 18 Respiratory Effort / Characteristics Spontaneous Blood Pressure 111/69 Blood Pressure [Left Arm] 111/69 Blood Pressure Mean 83 Blood Pressure Mean [Left Arm] 83 Pulse Oximetry 92 96 98 Oxygen Delivery Method Nasal Cannula Nasal Cannula Nasal Cannula Oxygen Flow Rate 4 4 4 Sepsis Recent Fever Within 48 Hours No Sepsis New/Unexplained Change in Mental Status No Sepsis Action Taken by Nursing No Action Required CONSTITUTIONAL/VITAL SIGNS: Reviewed / noted above. GENERAL: Generalized weakness. INTEGUMENTARY: Warm, dry, and [place]. HEAD: Normocephalic. EYES: without scleral icterus or trauma. ENT/OROPHARYNX: clear and moist. LYMPHADENOPATHY/NECK: Is supple without lymphadenopathy or meningismus. RESPIRATORY: Lungs reveal rhonchi bilaterally in the bases. CARDIOVASCULAR: Regular rate and rhythm. GI/ABDOMEN: Soft and nontender. No organomegaly or pulsatile mass. No rebound or guarding. Normal bowel sounds. EXTREMITIES: Warm and well perfused. BACK: No CVA tenderness. NEUROLOGICAL: Intact without focal deficits. PSYCHIATRIC: normal affect. MUSCULOSKELETAL: Normally developed with average muscle tone. TRIAGE NURSING DOCUMENTATION REVIEWED. Course Administered Medications Vancomycin HCl 1,500 mg/ (Sodium Chloride) 530 mls @ 200 mls/hr IV NOW ONE Stop: 01/20/20 11:43 Last Admin: 01/20/20 09:21 Dose: 200 mls/hr Documented by: [id number] Discontinued Medications Albuterol (Duoneb) 3 ml NEB NOW STA Stop: 01/20/20 09:17 Last Admin: 01/20/20 09:27 Dose: 3 ml Documented by: [id number] Sodium Chloride (Nss) 500 mls @ 999 mls/hr IV .Q31M NENA Stop: 01/20/20 09:00 Last Admin: 01/20/20 08:58 Dose: 999 mls/hr Documented by: [id number] Cefepime HCl (Maxipime) 2,000 mg in 20 mls @ 5 mls/min IV NOW STA; Protocol Stop: 01/20/20 08:25 Last Admin: 01/20/20 08:58 Dose: 5 mls/min Documented by: [id number] Medical Decision Making Differential Diagnosis The differential was considered includes acute myocardial infarction, acute coronary syndrome, myocarditis, pericarditis, pericardial effusions /tamponad, esophageal perforation, pulmonary embolism, pneumonia, pneumothorax, cardiomyopathy, congestive heart, anemia , COPD/asthma exacerbation. Medical Records Attestation: I reviewed the patient's medical records. Home Medications Current Medication List: was personally reviewed by me Laboratory Data Attestation: I reviewed the patient's lab results. Result diagrams: 01/20/20 07:50 01/20/20 07:50 Lab Results 01/20/20 01/20/20 01/20/20 Range/Units 07:50 07:50 07:50 WBC 7.20 (4.8-10.8) K/uL RBC 4.04 L (4.2-5.4) M/uL Hgb 11.9 L (12.0-16.0) g/dL Hct 37.9 (37-47) % MCV 93.8 (80-100) fL MCH 29.5 (25-34) pg MCHC 31.4 L (32-36) g/dL RDW Std Deviation 49.7 H (36.4-46.3) fL RDW Coeff of Jennifer 14.6 H (11.5-14.5) % Plt Count 210 (130-400) K/uL MPV 10.1 (7.4-10.4) fL Immature Gran % (Auto) 0.3 % Neut % (Auto) 86.9 % Lymph % (Auto) 5.7 % Jackson % (Auto) 6.9 % Eos % (Auto) 0.1 % Baso % (Auto) 0.1 % Neut # (Auto) 6.25 (1.4-6.5) K/uL Lymph # (Auto) 0.41 L (1.2-3.4) K/uL Jackson # (Auto) 0.50 (0.11-0.59) K/uL Eos # (Auto) 0.01 (0-0.5) K/uL Baso # (Auto) 0.01 (0-0.2) K/uL Immature Gran # (Auto) 0.02 (0.00-0.02) K/uL PT 11.1 (9.0-12.0) Seconds INR 1.1 (0.9-1.1) Sodium 138 (136-145) mmol/L Potassium 3.8 (3.5-5.1) mmol/L Chloride 106 (98-107) mmol/L Carbon Dioxide 24 (21-32) mmol/L Anion Gap 8.0 (3-11) BUN 31 H (7-18) mg/dl Creatinine 2.12 H (0.6-1.2) mg/dl Est Cr Clr Drug Dosing 17.1 ml/min Est GFR ( Amer) 24.2 Est GFR (Non-Af Amer) 20.8 BUN/Creatinine Ratio 14.6 (10-20) Glucose 172 H (70-99) mg/dl Lactate (0.4-2.0) mmol/L Calcium 9.1 (8.5-10.1) mg/dl Total Bilirubin 0.5 (0.2-1) mg/dl AST 48 H (15-37) U/L ALT 80 H (12-78) U/L Alkaline Phosphatase 176 H (45-117) U/L Troponin I < 0.015 (0-0.045) ng/ml Total Protein 6.3 L (6.4-8.2) gm/dl Albumin 2.7 L (3.4-5.0) gm/dl Globulin 3.6 (2.5-4.0) gm/dl Albumin/Globulin Ratio 0.7 L (0.9-2) 01/20/20 Range/Units 09:05 WBC (4.8-10.8) K/uL RBC (4.2-5.4) M/uL Hgb (12.0-16.0) g/dL Hct (37-47) % MCV (80-100) fL MCH (25-34) pg MCHC (32-36) g/dL RDW Std Deviation (36.4-46.3) fL RDW Coeff of Jennifer (11.5-14.5) % Plt Count (130-400) K/uL MPV (7.4-10.4) fL Immature Gran % (Auto) % Neut % (Auto) % Lymph % (Auto) % Jackson % (Auto) % Eos % (Auto) % Baso % (Auto) % Neut # (Auto) (1.4-6.5) K/uL Lymph # (Auto) (1.2-3.4) K/uL Jackson # (Auto) (0.11-0.59) K/uL Eos # (Auto) (0-0.5) K/uL Baso # (Auto) (0-0.2) K/uL Immature Gran # (Auto) (0.00-0.02) K/uL PT (9.0-12.0) Seconds INR (0.9-1.1) Sodium (136-145) mmol/L Potassium (3.5-5.1) mmol/L Chloride (98-107) mmol/L Carbon Dioxide (21-32) mmol/L Anion Gap (3-11) BUN (7-18) mg/dl Creatinine (0.6-1.2) mg/dl Est Cr Clr Drug Dosing ml/min Est GFR ( Amer) Est GFR (Non-Af Amer) BUN/Creatinine Ratio (10-20) Glucose (70-99) mg/dl Lactate 1.9 (0.4-2.0) mmol/L Calcium (8.5-10.1) mg/dl Total Bilirubin (0.2-1) mg/dl AST (15-37) U/L ALT (12-78) U/L Alkaline Phosphatase (45-117) U/L Troponin I (0-0.045) ng/ml Total Protein (6.4-8.2) gm/dl Albumin (3.4-5.0) gm/dl Globulin (2.5-4.0) gm/dl Albumin/Globulin Ratio (0.9-2) Imaging Data Attestation: I personally reviewed and interpreted this imaging study as follows: My Impression: Chest x-ray: Left lower lobe pneumonia Radiologist's Impression: XR chest 1V portable CLINICAL HISTORY: cough, low sats COMPARISON STUDY: 12/08/2019 FINDINGS: The heart is the upper limits of normal in size. Since the prior study, the patient developed left lower lobe airspace opacity suspicious for pneumonia. There is a small right pleural effusion. Minor right basilar airspace opacities are also evident.[ IMPRESSION: 1. Interval development of left lower lung zone airspace opacity suspicious for pneumonia 2. Suspected small right pleural effusion and minimal right basilar airspace opacities. ECG Data Attestation: I personally reviewed and interpreted this ECG as follows: Indication: weakness Rate (beats per minute): 108 Rhythm: sinus tachycardia Findings: no PVC and no ST elevation Blood Pressure Blood Pressure Findings: Normal blood pressure MDM Narrative This is an 84-year-old female who presents to the ED with a chief complaint of a cough that is nonproductive, shortness of breath, generalized weakness, nausea, vomiting and diarrhea. She vomited 3 times starting last night. She has had diarrhea starting last night as well. The patient feels very weak. She does have a history of anemia. She received 2 units of blood last Sunday. She does not wear home oxygen. Her oxygen saturations here were 84% on room air. The patient's chest x-ray shows a left lower lobe pneumonia. Her CBC is unremarkable. Creatinine is elevated at 2.1. This is higher than 1.5 at baseline. Transaminitis is present but this appears to be chronic. The patient was started on IV cefepime and IV vancomycin and given a DuoNeb treatment as well as some IV fluids. The patient will be seen by the hospitalist for further inpatient evaluation and care. Impression & Plan Hypoxia, Pneumonia, Nausea vomiting and diarrhea, Generalized weakness Critical Care Time Critical Care Time: Yes Total Critical Care Time: 35 I have personally spent 35 minutes of critical care time in the direct management of this patient. This includes bedside care, interpretation of diagnostic studies, and testing, discussion with consultants, patient, and family members, and other required patient management activities. This 35 minutes is in excess of all separately billable procedures. Discharge Plan Visit Data Chief Complaint: Illness ED Provider: Celso Neil Discharge Problem: Hypoxia, Pneumonia, Nausea vomiting and diarrhea, Generalized weakness Patient Disposition: Being Evaluated by Hospitalist Forms Stand Alone Forms: [facility], Virtual Emergency Department, Important Visit Information Prescriptions Prescriptions: No Action multivitamin Tablet 1 tab PO QAM RF: 0 alprazolam [Xanax] 0.25 mg Tablet 0.25 mg PO HS PRN (Reason: Anxiety) RF: 0 ascorbic acid (vitamin C) [Vitamin C] 500 mg Tablet 500 mg PO QAM RF: 0 escitalopram oxalate [Lexapro] 10 mg Tablet 10 mg PO QAM RF: 0 rosuvastatin [Crestor] 20 mg Tablet 20 mg PO QAM RF: 0 calcium carbonate-vitamin D3 [Os-Arcadio 500 + D3] 500 mg(1,250mg) -200 unit T ablet 1 tab PO BID RF: 0 diphenhydramine-acetaminophen [Tylenol PM Extra Strength] 25-500 mg Tablet 1 tab PO HS PRN (Reason: Sleep and Pain) RF: 0 amiodarone 200 mg Tablet 200 mg PO DAILY RF: 0 metoprolol succinate [Toprol XL] 50 mg Tablet Extended Release 24 Hr 50 mg PO DAILY RF: 0 tramadol 50 mg Tablet 50 mg PO DAILY RF: 0 cranberry 400 mg Capsule 400 mg PO QAM RF: 0 Tradjenta 5 mg Tablet 5 mg PO QAM RF: 0 ondansetron HCl [Zofran] 4 mg Tablet 4 mg PO Q6H PRN (Reason: Nausea) RF: 0 latanoprost 0.005 % Drops 1 drp OPL HS RF: 0 amlodipine 5 mg Tablet 5 mg PO QAM RF: 0 amitriptyline 25 mg Tablet 25 mg PO HS RF: 0 esomeprazole magnesium [Nexium] 20 mg Capsule,Delayed Release(Dr/Ec) 20 mg PO QAM RF: 0 oxycodone-acetaminophen [Percocet] 5-325 mg Tablet 1 tab PO Q8H PRN (Reason: Pain) RF: 0 Referrals Referrals: Mana Thompson DO [Primary Care Provider] - Discharge Problem: Pneumonia Qualifiers: Pneumonia type: due to unspecified organism Laterality: left Lung location: lower lobe of lung Qualified Code(s): J18.9 - Pneumonia, unspecified organism
[2020-01-20] MEDS ORDERED: SODIUM CHLORIDE 0.9% 500 ML IV SCH (08:30)
[2020-01-20 08:52] LABS: Basophils # (auto) 0.01 K/uL (0-0.2); Basophils % (auto) 0.1 %; Eosinophils # (auto) 0.01 K/uL (0-0.5); Eosinophils % (auto) 0.1 %; Hematocrit (blood only) 37.9 % (37-47); Hemoglobin 11.9 g/dL (12.0-16.0); Immature Granulocytes # (auto) 0.02 K/uL (0.00-0.02); Immature Granulocytes % (auto) 0.3 %; Lymphocytes # (auto) 0.41 K/uL (1.2-3.4); Lymphocytes % (auto) 5.7 %; Mean Corpuscular Hemoglobin 29.5 pg (25-34); Mean Corpuscular Hgb Conc 31.4 g/dL (32-36); Mean Corpuscular Volume 93.8 fL (80-100); Mean Platelet Volume 10.1 fL (7.4-10.4); Monocytes % (auto) 6.9 %; Neutrophils # (auto) 6.25 K/uL (1.4-6.5); Neutrophils % (auto) 86.9 %; Platelet Count 210 K/uL (130-400); RDW Coefficient of Variation 14.6 % (11.5-14.5); RDW Standard Deviation 49.7 fL (36.4-46.3); Red Blood Count 4.04 M/uL (4.2-5.4)
[2020-01-20 08:57] LABS: INR 1.1 (0.9-1.1); Prothrombin Time 11.1 Seconds (9.0-12.0)
[2020-01-20 08:59] LABS: Alanine Aminotransferase 80 U/L (12-78); Albumin Level 2.7 gm/dl (3.4-5.0); Aspartate Aminotransferase 48 U/L (15-37); BUN Creatinine Ratio 14.6 (10-20); Blood Urea Nitrogen 31 mg/dl (7-18); Calcium 9.1 mg/dl (8.5-10.1); Carbon Dioxide 24 mmol/L (21-32); Chloride 106 mmol/L (98-107); Creatinine Clr Calc Pharmacy 17.1 ml/min; Est GFR (African American) 24.2; Est GFR (Non-African American) 20.8; Glucose 172 mg/dl (70-99); Potassium 3.8 mmol/L (3.5-5.1); Sodium 138 mmol/L (136-145)
[2020-01-20 09:02] LABS: Albumin Globulin Ratio 0.7 (0.9-2); Alkaline Phosphatase 176 U/L (45-117); Bilirubin,Total 0.5 mg/dl (0.2-1); Globulin 3.6 gm/dl (2.5-4.0); Total Protein 6.3 gm/dl (6.4-8.2); Troponin I < 0.015 ng/ml (0-0.045)
[2020-01-20] MEDS ORDERED: VANCOMYCIN CONSULT ACTIVE PRN ×2 (09:05→13:41)
[2020-01-20] MEDS ORDERED: VANCOMYCIN HCL 1,500 MG in SODIUM CHLORIDE 0.9% 500 ML IV ONE (09:05)
--- NOTE | 2020-01-20 09:15 | XRay Report ---
XR chest 1V portable CLINICAL HISTORY: cough, low sats COMPARISON STUDY: 12/08/2019 FINDINGS: The heart is the upper limits of normal in size. Since the prior study, the patient develop ed left lower lobe airspace opacity suspicious for pneumonia. There is a small right pleural effusion . Minor right basilar airspace opacities are also evident.[ IMPRESSION: 1. Interval development of left lower lung zone airspace opacity suspicious for pneumonia 2. Suspected small right pleural effusion and minimal right basilar airspace opacities. ACT 112: Negative or not required by law. Electronically signed by: Shun Blanchard M.D. 01/20/2020 9:13 AM
[2020-01-20] MEDS ORDERED: ALBUT/IPRATROP 3MG/0.5MG NEB 3 ML VIAL NEB STA (09:16)
[2020-01-20 11:22] LABS: Magnesium 1.8 mg/dl (1.8-2.4); Phosphorus 2.8 mg/dl (2.5-4.9)
[2020-01-20] MEDS ORDERED: POLYETHYLENE (MIRALAX) 17 GM PACK PO PRN (12:45)
[2020-01-20] MEDS ORDERED: ALPRAZolam 0.25 MG TABLET PO PRN (12:45)
[2020-01-20] MEDS ORDERED: CONSULT PHARMACY STA (12:45)
--- NOTE | 2020-01-20 13:05 | History & Physical Report ---
Date of Service January 20, 2020 Assessment & Plan (1) Acute respiratory failure with hypoxia: (2) Hospital acquired PNA: This is an 84-year-old female with PMH of metastatic breast cancer (s/p surgery and radiation, chemo on hold), paroxysmal atrial fibrillation (relative contraindication anticoagulation due to rectal sheath hematoma, anemia, frequent falls), DM II, HTN, anemia and other medical problems listed below who presents with worsening shortness of breath since earlier today and was found to have acute hypoxic respiratory failure in setting of LLL PNA. -Hypoxic at 84% on room air today with nonproductive cough and shortness of breath. Oxygen saturation improved to 93% on 4 L nasal cannula -CXR with interval development of left lower lung zone airspace opacity suspicious for pneumonia and suspected small right pleural effusion and minimal right basilar airspace opacities -Started on empiric antibiotics with vancomycin and cefepime. Follow blood cultures -Continue Xopenex nebs, supplemental oxygen -COVID-19 PCR negative. Legionella ag pending (3) Nausea vomiting and diarrhea: Developed after finishing ice cream last evening, has not had any continued issue this morning -Ordered KUB due to recent admission for small bowel obstruction, history of complicated abdominal anatomy secondary to resection due to metastatic breast cancer -Stool cultures and C. difficile ordered due to recent antibiotics for UTI, diarrhea -Antiemetics PRN (4) Paroxysmal atrial fibrillation: Amiodarone dose recently decreased from 200 twice daily to once daily. Also with beta-moni switch to Toprol 50 mg daily -Given missed a.m. doses -Anticoagulation contraindicated due to history of rectal sheath hematoma, frequent falls, anemia (5) Anemia of chronic disease: History of multifactorial anemia in setting of CKD, cancer, ARABELLA -Following with Dr. Fong for this. Outpatient lab work in December revealed hemoglobin of 7 and patient received 2 units PRBCs last week with improved hemoglobin to 11.9 today -Continue to monitor with daily CBC (6) Metastatic breast cancer: Follows with Dr. Fong, history of surgical resection and radiation. Chemo has been on hold for the past 1.5 months due to frequent hospitalizations (7) DM type 2 (diabetes mellitus, type 2): A1c of 6.5 in December -Hold home agents -SSI while in-patient -BSG AC HS (8) CKD (chronic kidney disease), stage III: Worsening renal function over the past few weeks with creatinine of 2.12 (previous baseline mid ones) -Renally dose vancomycin for pneumonia treatment -Avoid nephrotoxic agents when able -Daily BMP DVT Ppx: SQ heparin Code status: DNR PCP: Donna Dispo:Admit to PCU. Discharge planning ordered. Patient seen in collaboration with Dr. Wang. Please see addendum. Admission and Anticipated Discharge Date Admission Date: January 20, 2020 History of Present Illness Chief Complaint: Shortness of breath, hypoxia Primary Care Provider: Mana Thompson DO This is an 84-year-old female with PMH of metastatic breast cancer (s/p surgery and radiation, chemo on hold), paroxysmal atrial fibrillation (relative c ontraindication anticoagulation due to rectal sheath hematoma, anemia, frequent falls), DM II, HTN, anemia and other medical problems listed below who presents with worsening shortness of breath since earlier today. Patient was recently admitted from late November-December for small bowel obstruction and atrial fibrillation. Since discharge home, patient developed urinary symptoms which resolved after 3-day course of Cipro prescribed on 01/02. Last evening, patient noted that she is feeling more fatigued. Had an ice cream cone, which she was afraid "did not sit well with failure". Developed acid reflux, nausea and had 3 episodes of vomiting overnight. Also endorses large episode of diarrhea. Has been having loose stool ever since discharge home from hospital but this was significantly more watery. Also endorses nonproductive cough and shortness of breath starting this morning. When daughter visited her, states that patient looked pale, was breathing quickly and was sweaty and felt warm. Brought in by EMS for further evaluation. Currently patient is feeling much better after DuoNeb treatment and is saturating at 93% on 4 L nasal cannula. Was initially hypoxic 84% on room air. Does not require home O2 normally. Denies chills, lightheadedness, confusion, congestion, chest pain, wheezing, nausea, abdominal pain, dysuria or constipation. Lives at home with and requires consistent help from both daughters who live locally. Allergies Allergy/AdvReac Type Severity Reaction Status Date / Time Influenza Virus Vaccines Allergy Mild SWELLING Verified 01/20/20 07:58 Home Medications Home Medications Medication Instructions Recorded Confirmed Type alprazolam [Xanax] 0.25 mg PO HS PRN 03/28/18 01/20/20 History ascorbic acid (vitamin C) [Vitamin 500 mg PO QAM 03/28/18 01/20/20 History C] calcium carbonate-vitamin D3 1 tab PO BID 03/28/18 01/20/20 History [Os-Arcadio 500 + D3] escitalopram oxalate [Lexapro] 10 mg PO QAM 03/28/18 01/20/20 History multivitamin 1 tab PO QAM 03/28/18 01/20/20 History rosuvastatin [Crestor] 20 mg PO QAM 03/28/18 01/20/20 History Tradjenta 5 mg PO QAM 07/07/19 01/20/20 History cranberry 400 mg PO QAM 07/07/19 01/20/20 History amitriptyline 25 mg PO HS 07/12/19 01/20/20 History amlodipine 5 mg PO QAM 07/12/19 01/20/20 History esomeprazole magnesium [Nexium] 20 mg PO QAM 07/12/19 01/20/20 History latanoprost 1 drp OPL HS 07/12/19 01/20/20 History ondansetron HCl [Zofran] 4 mg PO Q6H PRN 07/12/19 01/20/20 History oxycodone-acetaminophen [Percocet] 1 tab PO Q8H PRN 10/01/19 01/20/20 History diphenhydramine-acetaminophen 1 tab PO HS PRN 11/24/19 01/20/20 History [Tylenol PM Extra Strength] amiodarone 200 mg PO DAILY 01/14/20 01/20/20 History metoprolol succinate [Toprol XL] 50 mg PO DAILY 01/14/20 01/20/20 History tramadol 50 mg PO DAILY 01/14/20 01/20/20 History Past Med/Surg History Medical History Acute hypoxemic respiratory failure Anemia of chronic disease Anxiety Arthritis Atrial tachycardia Cataracts, bilateral CKD (chronic kidney disease), stage III DM type 2 (diabetes mellitus, type 2) Dyslipidemia Goals of care, counseling/discussion HTN (hypertension) HX: breast cancer Metastatic breast cancer Paroxysmal atrial fibrillation S/P admission to ICU (intensive care unit) Temporal arteritis Surgical History H/O right mastectomy Jun 2018 History of appendectomy History of cataract surgery S/P partial colectomy Jul 2019 S/P LIZBETH-BSO Family History Mother Diabetes Social History Preferred Language: Thai Communication Ability: Effective Air Moving Technician Required: No Beliefs That Will Affect Care: None marital status: Current Living Situation: Spouse Current Living Situation Comment: lives with Other Information That Helps Us Care for You: No Feels Safe at Home: Yes Safety Concerns: Feels Safe At This Time Smoking Status: Never smoker Hx Alcohol Use: No Hx Substance Use: No Review of Systems Review of Systems: At least ten systems reviewed and negative except as noted in the HPI. Physical Exam Physical Exam: General Appearance: WD/WN, vitals as above, NAD, appears acutely ill, pale, pleasant, on supplemental NC O2 Head: normocephalic, atraumatic Eyes: normal inspection, PERRL, conjunctivae normal, anicteric sclerae ENT: external ear and nose normal, oropharynx normal Neck: trachea midline, no thyromegaly, normal visual inspection Respiratory: normal respiratory effort, crackles L base, diminished breath sounds throughout, no wheezing. Normal insp/exp effort, no accessory muscle use Cardiovascular: tachycardic, regular rhythm, no murmur appreciated, normal peripheral pulses. Vessels: no JVD or carotid bruit Chest: normal inspection of chest Abdomen/GI: normal bowel sounds, soft, nontender, no hepatosplenomegaly Extremities/Musculoskeletal: no cyanosis or clubbing, extremities motor strength 5/5 Neurologic: PERRL, EOMI, accommodation nl, no face palsy, no dysarthria, CN's II-XI intact bilaterally and moves all extremities Psychiatric: A+Ox3, euthymic affect Skin: no rashes, normal color, warm/dry, + pale Results & Data Results & Data ([facility]) Vital Signs (Past 12 Hours) Vital Signs Temp Pulse Pulse Resp BP BP Pulse Ox 01/20/20 12:45 36.5 C 93 H 18 103/62 93 01/20/20 12:00 96 H 24 98 01/20/20 11:00 91 H 21 97 01/20/20 10:16 114 H 20 111/69 92 01/20/20 10:00 93 H 30 H 99 01/20/20 09:29 92 H 18 98 01/20/20 09:03 94 H 24 111/69 96 01/20/20 09:00 96 H 27 H 96 01/20/20 08:00 103 H 24 93 01/20/20 07:45 36.8 C 105 H 31 H 111/69 93 01/20/20 07:36 105 H 25 H 111/69 92 Laboratory Results Short CBC 01/20/20 Range/Units 07:50 WBC 7.20 (4.8-10.8) K/uL Hgb 11.9 L (12.0-16.0) g/dL Hct 37.9 (37-47) % Plt Count 210 (130-400) K/uL BMP 01/20/20 07:50 Sodium 138 Potassium 3.8 Chloride 106 Carbon Dioxide 24 BUN 31 H Creatinine 2.12 H Glucose 172 H Calcium 9.1 Cardiac Enzymes 01/20/20 Range/Units 07:50 Troponin I < 0.015 (0-0.045) ng/ml Liver Function 01/20/20 Range/Units 07:50 Total Bilirubin 0.5 (0.2-1) mg/dl AST 48 H (15-37) U/L ALT 80 H (12-78) U/L Alkaline Phosphatase 176 H (45-117) U/L Albumin 2.7 L (3.4-5.0) gm/dl Diagnostic Findings CXR: IMPRESSION: 1. Interval development of left lower lung zone airspace opacity suspicious for pneumonia 2. Suspected small right pleural effusion and minimal right basilar airspace opacities. Code Status & VTE Plan VTE Prophylaxis Plan VTE Prophylaxis will be ordered: Yes Supervising Physician Co-Signing Physician Notes Patient seen and examined by me, care coordinated with Kenna Mcguire PA-C. Please see her note above for further detail. Pt is an 84-year-old female with hx of metastatic breast cancer (s/p surgery and radiation, chemo on hold), paroxysmal atrial fibrillation (relative contraindication anticoagulation due to rectal sheath hematoma, anemia, frequent falls), DM II, HTN, anemia and other medical problems listed below who presents with worsening shortness of breath since earlier today and was found to have acute hypoxic respiratory failure in setting of LLL PNA. Has a history of recent admission, at that time she was treated for SBO and A. fib. Elderly female lying in bed, in no acute distress. She is answering questions appropriately, she is alert and oriented. Rhonchi noted at left lower base, no wheezing. Heart sounds regular, no murmur noted. Abdomen soft, nontender, nondistended. Moves extremities spontaneously and without difficulty. Broad-spectrum antibiotics started in the ED, will continue, concern for hospital-acquired pneumonia. Legionella pending. Recent nausea, vomiting at home. Currently no abdominal pain, nausea resolved. Last admission, due to SBO required NG tube. Will obtain KUB. Stool cultures, C. difficile ordered MD Efren
[2020-01-20] MEDS ORDERED: GLUCOSE 10 TABS/TUBE PO PRN (13:33)
[2020-01-20] MEDS ORDERED: DEXTROSE 50% 50 ML SYRINGE IV PRN (13:33)
[2020-01-20] MEDS ORDERED: GLUCAGON FOR INJ 1 MG VIAL SQ PRN (13:33)
[2020-01-20] MEDS ORDERED: GLUCOSE 40% GEL 15 GM TUBE PO PRN (13:33)
[2020-01-20] MEDS ORDERED: CARBOHYDRATES FOR HYPOGLYCEMIA PO PRN (13:33)
[2020-01-20] MEDS ORDERED: OXYCODONE/ACETAMINOPHEN 5mg/325mg TAB PO PRN (13:39)
[2020-01-20] MEDS ORDERED: CEFEPIME CONSULT ACTIVE PRN (13:40)
--- NOTE | 2020-01-20 13:40 | XRay Report ---
XR KUB/Abdomen 1 view CLINICAL HISTORY: eval for sbo bowel obstruction COMPARISON STUDY: 12/15/2019 FINDINGS: Nonobstructive bowel pattern. Mild narrowing of the proximal descending colon not present o n the prior study. This would tend to indicate peristalsis. No significant pneumatosis. IMPRESSION: Nonobstructive bowel pattern. ACT 112: Negative or not required by law. The above report was generated using voice recognition software. It may contain grammatical, syntax or spelling errors. Electronically signed by: Steven Douglas M.D. 01/20/2020 1:38 PM
--- NOTE | 2020-01-20 13:57 | Pharmacy Report ---
Pharmacy Abx Initial Consult - Date of Service January 20, 2020 - Pharmacy Dosing Scope Date of Consult: 01/20/2020 Consultation requested by: Kenna Mcguire PA-C Pharmacy is consulted to initiate vancomycin/cefepime IV/PO dosing therapy, order appropriate labs and adjust drug dose/frequency. - Subjective The patient is a 84 year old F admitted on 01/20/20 11:37. - Objective Height: 5 ft 4 in Weight: 56.6 kg Vital Signs (Past 12hrs): Vital Signs Temp Pulse Pulse Resp BP BP Pulse Ox 01/20/20 12:53 96 H 01/20/20 12:45 36.5 C 93 H 18 103/62 93 01/20/20 12:00 96 H 24 98 01/20/20 11:00 91 H 21 97 01/20/20 10:16 114 H 20 111/69 92 01/20/20 10:00 93 H 30 H 99 01/20/20 09:29 92 H 18 98 01/20/20 09:03 94 H 24 111/69 96 01/20/20 09:00 96 H 27 H 96 01/20/20 08:00 103 H 24 93 01/20/20 07:45 36.8 C 105 H 31 H 111/69 93 01/20/20 07:36 105 H 25 H 111/69 92 Lab Results (24hrs): Laboratory Tests (24 Hours) 01/20/20 01/20/20 01/20/20 07:50 07:50 07:50 WBC 7.20 Neut # (Auto) 6.25 Creatinine 2.12 H Est Cr Clr Drug Dosing 17.1 Procalcitonin 41.32 H Micro Results: 01/20/20 09:05 Aerobic Blood Culture - Pending Blood Anaerobic Blood Culture - Pending 01/20/20 07:50 Aerobic Blood Culture - Pending Blood Anaerobic Blood Culture - Pending - Risk Factors for Resistance * Hospitalization for 48 hours or more within the past 90 days * Immunocompromised (chronic steroid therapy, chemotherapy, immunomodulators) * - Assessment & Plan Assessment 84 year old F with past medical history including metastatic breast cancer (chemo currently on hold), paroxysmal a. fib (not on anticoagulation), DMII, HTN, anemia presenting with SOB, weakness. Found to have LLL PNA on CXray, normal white count, afebrile, procal elevated at 41 but patient does have SOLITARIO. Starting on vanc/cefepime empirically. Plan Vancomycin IV * Estimated PK Parameters: Vd 0.7 L/kg, Tadeo 0.018 hr-1, t1/2 37 hr * Loading dose: 1500 mg (26mg/kg) * Patient's current half life estimating >24 hours, will dose by levels, expect if SOLITARIO resolves may need dosing sooner * Will get random level in AM to assist with dosing * Goal trough level 15-20 mcg/mL Cefepime dosed at 2 gm every 24 hours for CrCl 17.1 ml/min. Pharmacy will continue to follow and will adjust dose/frequency as necessary. Thank you.
[2020-01-20] MEDS: METOPROLOL SUCC 50MG EXT REL TAB PO SCH (14:25)
[2020-01-20] MEDS: AMIODARONE 200 MG TAB PO SCH (14:25)
[2020-01-20] MEDS: INSULIN ASPART 100 UNITS/ML 3 ML PEN SC SCH ×2 (16:55→20:19)
[2020-01-20] MEDS: LEVALBUTEROL HCL 0.63 MG/3 ML NEB NEB SCH (19:30)
[2020-01-20 19:36] LABS: Appearance Urine Clear (Clear); Bacteria Urine Automated Negative (Negative); Bilirubin Urine Negative (Negative); Blood Urine Negative (Negative); Color Urine Yellow; Glucose Urine UA Negative (Negative); Ketones Urine Trace (Negative); Leukocyte Esterase Urine Negative (Negative); Nitrite Urine Negative (Negative); Protein Urine 1+ (Negative); RBC Urine Automated 0-4 /hpf (0-4); Urobilinogen Urine Negative (Negative)
[2020-01-20] MEDS: AMITRIPTYLINE HCL 25 MG TAB PO SCH (20:18)
[2020-01-20] MEDS: CALCIUM 600MG + VIT D 400 IU TAB PO SCH (20:18)
[2020-01-20] MEDS: LATANOPROST 0.005% OP SOLN 2.5 ML BTL OPL SCH (20:20)
[2020-01-21] MEDS: LEVALBUTEROL HCL 0.63 MG/3 ML NEB NEB SCH ×4 (00:20→19:04)
[2020-01-21 06:03] LABS: Hematocrit (blood only) 29.9 % (37-47); Hemoglobin 9.4 g/dL (12.0-16.0); Mean Corpuscular Hemoglobin 29.4 pg (25-34); Mean Corpuscular Hgb Conc 31.4 g/dL (32-36); Mean Corpuscular Volume 93.4 fL (80-100); Mean Platelet Volume 9.6 fL (7.4-10.4); Platelet Count 132 K/uL (130-400); RDW Coefficient of Variation 14.8 % (11.5-14.5); RDW Standard Deviation 50.9 fL (36.4-46.3); White Blood Count 10.89 K/uL (4.8-10.8)
[2020-01-21 06:25] LABS: Albumin Level 2.4 gm/dl (3.4-5.0); BUN Creatinine Ratio 16.1 (10-20); Creatinine Clr Calc Pharmacy 17.1 ml/min; Est GFR (African American) 24.3
[2020-01-21 06:30] LABS: Albumin Globulin Ratio 0.7 (0.9-2); Bilirubin,Total 0.5 mg/dl (0.2-1); Globulin 3.6 gm/dl (2.5-4.0)
--- NOTE | 2020-01-21 06:39 | Electrocardiogram Report ---
Test Reason : Blood Pressure : / mmHG Vent. Rate : 108 BPM Atrial Rate : 108 BPM P-R Int : 196 ms QRS Dur : 098 ms QT Int : 344 ms P-R-T Axes : -08 -11 056 degrees QTc Int : 460 ms Sinus tachycardia Nonspecific T wave abnormality Abnormal ECG When compared with ECG of 17-DEC-2019 06:35, No significant change Confirmed by Jay Marcum ([id number]) on 01/21/2020 6:38:47 AM Referred By: REFERRED SELF Confirmed By:Jay Marcum
[2020-01-21] MEDS: INSULIN ASPART 100 UNITS/ML 3 ML PEN SC SCH ×4 (07:50→21:10)
[2020-01-21] MEDS ORDERED: VANCOMYCIN HCL 500 MG in SODIUM CHLORIDE 0.9% 250 ML IV ONE (08:00)
[2020-01-21] MEDS: ACETAMINOPHEN 325 MG TAB PO PRN ×2 (08:17→19:53)
[2020-01-21] MEDS: ASCORBIC ACID 500 MG TAB PO SCH (08:18)
[2020-01-21] MEDS: MULTIVITAMIN TAB PO SCH (08:18)
[2020-01-21] MEDS: ROSUVASTATIN CALCIUM 20 MG TAB PO SCH (08:18)
[2020-01-21] MEDS: METOPROLOL SUCC 50MG EXT REL TAB PO SCH (08:18)
[2020-01-21] MEDS: CALCIUM 600MG + VIT D 400 IU TAB PO SCH ×2 (08:18→21:12)
[2020-01-21] MEDS: ESCITALOPRAM OXALATE 10 MG TAB PO SCH (08:18)
[2020-01-21] MEDS: AMIODARONE 200 MG TAB PO SCH (08:18)
[2020-01-21] MEDS: PANTOprazole 40 MG TAB PO SCH (08:18)
[2020-01-21] MEDS: TRAMADOL HCL 50 MG TABLET PO SCH (08:24)
[2020-01-21] MEDS: CEFEPIME 2,000 MG in SYRINGE 7.5 ML IV SCH (08:24)
[2020-01-21] MEDS ORDERED: AMLODIPINE BESYLATE 5 MG TAB PO SCH (09:00)
[2020-01-21] MEDS ORDERED: NON-FORMULARY MEDICATION (Cranberry 400 MG) PO SCH (09:00)
[2020-01-21] MEDS: DOXYCYCLINE HYCLATE 100 MG in DEXTROSE 5% 100 ML IV SCH (16:45)
--- NOTE | 2020-01-21 16:55 | Hospitalist Progress Note ---
Date of Service January 21, 2020 Assessment & Plan (1) Acute respiratory failure with hypoxia: (2) Hospital acquired PNA: This is an 84-year-old female with PMH of metastatic breast cancer (s/p surgery and radiation, chemo on hold), paroxysmal atrial fibrillation (relative contraindication anticoagulation due to rectal sheath hematoma, anemia, frequent falls), DM II, HTN, anemia and other medical problems listed below who presents with worsening shortness of breath since earlier today and was found to have acute hypoxic respiratory failure in setting of LLL PNA. -Hypoxic at 84% on room air today with nonproductive cough and shortness of breath. Oxygen saturation improved to 93% on 4 L nasal cannula -CXR with interval development of left lower lung zone airspace opacity suspicious for pneumonia and suspected small right pleural effusion and minimal right basilar airspace opacities. was Started on empiric antibiotics with vancomycin and cefepime. -Continue Xopenex nebs, supplemental oxygen as needed -COVID-19 PCR negative. Legionella ag pending -01/21/2020 updates: Patient seen earlier today with daughter. no acute distress. she was adjusting her nasal cannula on room air. the MRSA swab was negative and Vancomycin was stopped. Continuing the cefepime and then adding the Doxycycline. plans to repeat lung imaging as 2 view CXR on 01/22/2020 (3) Anemia of chronic disease: History of multifactorial anemia in setting of CKD, cancer, ARABELLA -Following with Dr. Fong for this. Outpatient lab work in December revealed hemoglobin of 7 and patient received 2 units PRBCs last week with improved hemoglobin to 11.9 on ED presentation -another possibility is whether recent outpatient transfusion led to changes on lung imaging (4) Metastatic breast cancer: Follows with Dr. Fong, history of surgical resection and radiation. Chemo has been on hold for the past 1.5 months due to frequent hospitalizations (5) Nausea vomiting and diarrhea: -appears resolved -Nonobstructive bowel pattern on KUB -C. difficile negative -Antiemetics PRN (6) Paroxysmal atrial fibrillation: -Amiodarone as 200 once daily. Toprol 50 mg daily -hold off amlodipine to avoid hypotension -Anticoagulation contraindicated due to history of rectal sheath hematoma, frequent falls, anemia (7) DM type 2 (diabetes mellitus, type 2): A1c of 6.5 in December -Hold home agents -SSI while in-patient -BSG AC HS (8) CKD (chronic kidney disease), stage III: -Worsening renal function over the past few weeks with creatinine of 2.12 on admission (previous baseline mid ones) -creatinine is 2.11 on 01/21/2020 so no significant changes for now DVT Ppx: SCDs Code status: DNR/DNI PCP: Donna Mims [phone] Admission and Anticipated Discharge Date Admission Date: January 20, 2020 Subjective Patient seen earlier today with daughter. no acute distress. she was adjusting her nasal cannula on room air. the MRSA swab was negative and Vancomycin was stopped. Continuing the cefepime and then adding the Doxycyline. plans to repeat lung imaging as 2 view CXR on 01/22/2020 no dizziness. no headache. no lightheadedness. no chest pain. no palpitations. no vomiting. Review of Systems Review of Systems: All systems reviewed & are unremarkable except as noted in Subjective Physical Exam Constitutional: comfortable Eyes: PERRL, conjunctivae normal, anicteric sclerae EOM intact bilaterally ENMT: external ear and nose normal, oropharynx normal Neck: trachea midline, no thyromegaly normal visual inspection Respiratory: normal respiratory effort, lungs clear to auscultation Cardiovascular: Rate/Rhythm: regular rate Gastrointestinal (Abdomen): normal bowel sounds, soft, nontender, no hepatosplenomegaly Neurologic: PERRL, EOMI, accommodation nl, no face palsy, no dysarthria CN's II-XI intact bilaterally Psychiatric: A+Ox3, euthymic affect Results & Data Results & Data ([facility]) Vital Signs (Past 12 Hours) Vital Signs Temp Pulse Pulse Resp BP Pulse Ox 01/21/20 15:32 37.2 C 87 20 93/43 L 95 01/21/20 13:21 87 18 95 01/21/20 11:51 36.9 C 85 20 97/57 L 93 01/21/20 09:58 89 01/21/20 09:31 95 01/21/20 07:53 36.8 C 90 22 111/63 96 01/21/20 07:12 91 H 16 92
[2020-01-21] MEDS ORDERED: ALUMINUM/MAGNESIUM/SIMETH (MAALOX MAX) 30 ML UDC PO PRN (20:57)
[2020-01-21] MEDS: ONDANSETRON INJ 2 MG/ML 2 ML VIAL IV PRN (21:09)
[2020-01-21] MEDS: AMITRIPTYLINE HCL 25 MG TAB PO SCH (21:12)
[2020-01-21] MEDS: LATANOPROST 0.005% OP SOLN 2.5 ML BTL OPL SCH (21:31)
--- NOTE | 2020-01-22 05:41 | Electrocardiogram Report ---
Test Reason : Blood Pressure : / mmHG Vent. Rate : 090 BPM Atrial Rate : 090 BPM P-R Int : 210 ms QRS Dur : 100 ms QT Int : 384 ms P-R-T Axes : -12 034 062 degrees QTc Int : 469 ms Sinus rhythm with 1st degree A-V block Otherwise normal ECG When compared with ECG of 20-JAN-2020 07:40, Nonspecific T wave abnormality, improved in Lateral leads Confirmed by Jay Marcum ([id number]) on 01/22/2020 5:41:03 AM Referred By: REFERRED SELF Confirmed By:Jay Marcum
[2020-01-22] MEDS: DOXYCYCLINE HYCLATE 100 MG in DEXTROSE 5% 100 ML IV SCH ×2 (06:06→17:42)
[2020-01-22 06:14] LABS: Hematocrit (blood only) 27.1 % (37-47); Hemoglobin 8.9 g/dL (12.0-16.0); Mean Corpuscular Hemoglobin 29.7 pg (25-34); Mean Corpuscular Hgb Conc 32.8 g/dL (32-36); Mean Corpuscular Volume 90.3 fL (80-100); Mean Platelet Volume 10.1 fL (7.4-10.4); Platelet Count 132 K/uL (130-400); RDW Coefficient of Variation 14.9 % (11.5-14.5); RDW Standard Deviation 49.8 fL (36.4-46.3)
[2020-01-22 06:55] LABS: Albumin Level 2.2 gm/dl (3.4-5.0); BUN Creatinine Ratio 17.8 (10-20); Calcium 8.7 mg/dl (8.5-10.1); Est GFR (African American) 27.6; Est GFR (Non-African American) 23.8; Potassium 4.3 mmol/L (3.5-5.1)
[2020-01-22] MEDS: LEVALBUTEROL HCL 0.63 MG/3 ML NEB NEB SCH ×4 (06:56→19:22)
[2020-01-22 06:58] LABS: Albumin Globulin Ratio 0.6 (0.9-2); Bilirubin,Total 0.4 mg/dl (0.2-1); Globulin 3.8 gm/dl (2.5-4.0)
[2020-01-22] MEDS ORDERED: METOPROLOL TARTRATE 1 MG/ML VIAL IV PRN (08:18)
[2020-01-22] MEDS: INSULIN ASPART 100 UNITS/ML 3 ML PEN SC SCH ×4 (08:25→20:51)
--- NOTE | 2020-01-22 08:25 | Hospitalist Progress Note ---
Date of Service January 22, 2020 Assessment & Plan (1) Acute respiratory failure with hypoxia: (2) Hospital acquired PNA: This is an 84-year-old female with PMH of metastatic breast cancer (s/p surgery and radiation, chemo on hold), paroxysmal atrial fibrillation (relative contraindication anticoagulation due to rectal sheath hematoma, anemia, frequent falls), DM II, HTN, anemia and other medical problems listed below who presents with worsening shortness of breath since earlier today and was found to have acute hypoxic respiratory failure in setting of LLL PNA. -Hypoxic at 84% on room air today with nonproductive cough and shortness of breath. Oxygen saturation improved to 93% on 4 L nasal cannula -CXR with interval development of left lower lung zone airspace opacity suspicious for pneumonia and suspected small right pleural effusion and minimal right basilar airspace opacities. was Started on empiric antibiotics with vancomycin and cefepime. -Continue Xopenex nebs, supplemental oxygen as needed -COVID-19 PCR negative. Legionella ag pending -01/21/2020 updates: Patient seen earlier today with daughter. no acute distress. she was adjusting her nasal cannula on room air. the MRSA swab was negative and Vancomycin was stopped. Continuing the cefepime and then adding the Doxycycline. -continue IV antibiotics and plans to repeat lung imaging as 2 view CXR on 01/22/2020 (3) Anemia of chronic disease: History of multifactorial anemia in setting of CKD, cancer, ARABELLA -Following with Dr. Fong for this. Outpatient lab work in December revealed hemoglobin of 7 and patient received 2 units PRBCs last week with improved hemoglobin to 11.9 on ED presentation -another possibility is whether recent outpatient transfusion led to changes on lung imaging (4) Metastatic breast cancer: Follows with Dr. Fong, history of surgical resection and radiation. Chemo has been on hold for the past 1.5 months due to frequent hospitalizations (5) Nausea vomiting and diarrhea: -appears resolved -Nonobstructive bowel pattern on KUB -C. difficile negative -Antiemetics PRN (6) Paroxysmal atrial fibrillation: Atrial fibrillation with rapid ventricular response -Amiodarone as 200 once daily. Toprol 50 mg daily -hold off amlodipine to avoid hypotension -Anticoagulation contraindicated due to history of rectal sheath hematoma, frequent falls, anemia -patient initially sinus rhythm at start of this admission and had already been on amiodarone and beta moni because of history of Paroxysmal atrial fibrillation. Around 6 AM on 01/22/2020, she went back into atrial fibrillation and some rapid ventricular response slightly above 110s. (7) DM type 2 (diabetes mellitus, type 2): A1c of 6.5 in December -Hold home agents -SSI while in-patient -BSG AC HS (8) CKD (chronic kidney disease), stage III: -Worsening renal function over the past few weeks with creatinine of 2.12 on admission (previous baseline mid ones) -creatinine is 1.9 on 01/22/2020 so no significant worsening changes for now DVT Ppx: SCDs Code status: DNR/DNI PCP: Donna Daughter [phone] Admission and Anticipated Discharge Date Admission Date: January 20, 2020 Subjective -patient initially sinus rhythm at start of this admission and had already been on amiodarone and beta moni because of history of Paroxysmal atrial fibrillation. Around 6 AM on 01/22/2020, she went back into atrial fibrillation and some rapid ventricular response slightly above 110s. no chest pain, no palpitations. no dizziness. no lightheadedness. no headache on nasal cannula, and IV doxycycline infusing. crackles remain present on lung exam. normal appearing respiratory effort. Review of Systems Review of Systems: All systems reviewed & are unremarkable except as noted in Subjective Physical Exam Constitutional: comfortable Eyes: PERRL, conjunctivae normal, anicteric sclerae EOM intact bilaterally ENMT: external ear and nose normal, oropharynx normal Neck: trachea midline, no thyromegaly normal visual inspection Respiratory: normal respiratory effort, lungs clear to auscultation Cardiovascular: Rate/Rhythm: regular rate Gastrointestinal (Abdomen): normal bowel sounds, soft, nontender, no hepatosplenomegaly Neurologic: PERRL, EOMI, accommodation nl, no face palsy, no dysarthria CN's II-XI intact bilaterally Psychiatric: A+Ox3, euthymic affect Results & Data Results & Data ([facility]) Vital Signs (Past 12 Hours) Vital Signs Temp Pulse Resp BP Pulse Ox 01/22/20 07:49 36.5 C 110 H 16 106/64 92 01/22/20 06:59 92 H 18 91 01/22/20 03:40 36.6 C 74 18 99/60 L 94 01/22/20 00:01 109 H 20 91 01/21/20 23:28 36.9 C 82 18 93/56 L 94
[2020-01-22] MEDS: MULTIVITAMIN TAB PO SCH (08:26)
[2020-01-22] MEDS: CALCIUM 600MG + VIT D 400 IU TAB PO SCH ×2 (08:26→21:09)
[2020-01-22] MEDS: METOPROLOL SUCC 50MG EXT REL TAB PO SCH (08:26)
[2020-01-22] MEDS: AMIODARONE 200 MG TAB PO SCH (08:26)
[2020-01-22] MEDS: CEFEPIME 2,000 MG in SYRINGE 7.5 ML IV SCH (08:27)
[2020-01-22] MEDS: ASCORBIC ACID 500 MG TAB PO SCH (08:27)
[2020-01-22] MEDS: ESCITALOPRAM OXALATE 10 MG TAB PO SCH (08:27)
[2020-01-22] MEDS: ROSUVASTATIN CALCIUM 20 MG TAB PO SCH (08:27)
[2020-01-22] MEDS: PANTOprazole 40 MG TAB PO SCH (08:28)
[2020-01-22] MEDS: TRAMADOL HCL 50 MG TABLET PO SCH (08:33)
--- NOTE | 2020-01-22 09:50 | XRay Report ---
XR chest 2V PA/lateral HISTORY: 84 years-old Female follow lung infiltrates follow-up study in a patient with airspace opac ities COMPARISON: Chest radiograph 01/20/2020 TECHNIQUE: PA and lateral views of the chest FINDINGS: Cardiac silhouette is mildly enlarged. Mildly mildly decreased pulmonary vascular congestion. No pneu mothorax. Small right and trace left pleural effusions. Mildly improved aeration of the right lung ba se. Airspace opacities of the left midlung and left lung base appear generally unchanged. Degenerativ e changes of the shoulders and spine. IMPRESSION: 1. Persistent left midlung and left lung base airspace opacities suspicious for pneumonia. 2. Cardiomegaly with decreased pulmonary vascular congestion. 3. Small right and trace left pleural effusions. 4. Mildly improved aeration of the right lung base. ACT 112: Negative or not required by law. The above report was generated using voice recognition software. It may contain grammatical, syntax o r spelling errors. Electronically signed by: Ben Odonnell M.D. 01/22/2020 9:49 AM
[2020-01-22] MEDS ORDERED: STAT IV Infusion **Titration per Protocol STA (10:03)
[2020-01-22] MEDS ORDERED: 0.2 MICRON FILTER SET 1 EA IV ONE (10:03)
[2020-01-22] MEDS ORDERED: AMIODARONE IV BOLUS & DRIP IV STA (10:03)
[2020-01-22] MEDS ORDERED: AMIODARONE / D5W 150 MG/100 ML BAG IV STA (10:05)
[2020-01-22] MEDS ORDERED: AMIODARONE / D5W 360 MG/200 ML BAG IV ONE (10:15)
--- NOTE | 2020-01-22 10:15 | Cardiology Consultation ---
Date of Consultation January 22, 2020 Assessment & Plan (1) Paroxysmal atrial fibrillation: (2) Atrial flutter: (3) Hospital acquired PNA: (4) Anemia of chronic disease: (5) CKD (chronic kidney disease), stage III: Complex 84-year-old female with metastatic [facility] This morning she reverted to atrial fibrillation with rapid ventricular response. She is not chronically anticoagulated due to relative contraindications including anemia, frailty, fall risk, and history of rectus sheath hematoma. Recommend IV amiodarone 150 mg x 1 now followed by continuous infusion. Titrate oral amiodarone to 200 mg twice daily. Continue metoprolol 50 mg daily as previously ordered. Repeat ECG now. I suspect her rhythm has converted to atrial flutter with 2-1 conduction at a rate of 110 bpm. Assess serum magnesium level and supplement as needed. Follow daily weight, fluid balance, and GFR. History of Present Illness Reason for Consultation: Atrial fibrillation with rapid ventricular response Requesting Physician: Dr. Armstrong Attending Physician: Shelton Armstrong MD History of Present Illness 84-year-old female admitted with left lower lobe pneumonia. Recent hospitalizations in November and December secondary to fevers and small bowel obstruction respectively. During both those hospitalizations, patient developed atrial fibrillation/flutter. During her most recent hospitalization, patient prescribed amiodarone. Relative contraindications to long-term anticoagulation noted including frailty, spontaneous rectus sheath hematoma, and fall risk. Currently, patient resting comfortably. She reports shortness of breath, cough, minimal sputum production, and fevers prior to admission. Notes occasional palpitations. Denies lightheadedness, dizziness, syncope, near syncope. No orthopnea, PND, or worsening lower extremity edema. Chronic mild pedal edema unchanged. Denies chest discomfort or heaviness. Carries history of metastatic breast cancer. Weight is down 10 pounds since her most recent hospitalization in December. Allergies Allergy/AdvReac Type Severity Reaction Status Date / Time Influenza Virus Vaccines Allergy Mild SWELLING Verified 01/20/20 07:58 Home Medications Home Medications Medication Instructions Recorded Confirmed Type alprazolam [Xanax] 0.25 mg PO HS PRN 03/28/18 01/20/20 History ascorbic acid (vitamin C) [Vitamin 500 mg PO QAM 03/28/18 01/20/20 History C] calcium carbonate-vitamin D3 1 tab PO BID 03/28/18 01/20/20 History [Os-Arcadio 500 + D3] escitalopram oxalate [Lexapro] 10 mg PO QAM 03/28/18 01/20/20 History multivitamin 1 tab PO QAM 03/28/18 01/20/20 History rosuvastatin [Crestor] 20 mg PO QAM 03/28/18 01/20/20 History Tradjenta 5 mg PO QAM 07/07/19 01/20/20 History cranberry 400 mg PO QAM 07/07/19 01/20/20 History amitriptyline 25 mg PO HS 07/12/19 01/20/20 History amlodipine 5 mg PO QAM 07/12/19 01/20/20 History esomeprazole magnesium [Nexium] 20 mg PO QAM 07/12/19 01/20/20 History latanoprost 1 drp OPL HS 07/12/19 01/20/20 History ondansetron HCl [Zofran] 4 mg PO Q6H PRN 07/12/19 01/20/20 History oxycodone-acetaminophen [Percocet] 1 tab PO Q8H PRN 10/01/19 01/20/20 History diphenhydramine-acetaminophen 1 tab PO HS PRN 11/24/19 01/20/20 History [Tylenol PM Extra Strength] amiodarone 200 mg PO DAILY 01/14/20 01/20/20 History metoprolol succinate [Toprol XL] 50 mg PO DAILY 01/14/20 01/20/20 History tramadol 50 mg PO DAILY 01/14/20 01/20/20 History Patient History Medical History Acute hypoxemic respiratory failure Anemia of chronic disease Anxiety Arthritis Atrial tachycardia Cataracts, bilateral CKD (chronic kidney disease), stage III DM type 2 (diabetes mellitus, type 2) Dyslipidemia Goals of care, counseling/discussion HTN (hypertension) HX: breast cancer Metastatic breast cancer Paroxysmal atrial fibrillation S/P admission to ICU (intensive care unit) Temporal arteritis Surgical History H/O right mastectomy Jun 2018 History of appendectomy History of cataract surgery S/P partial colectomy Jul 2019 S/P LIZBETH-BSO Family History Mother Diabetes Social History Preferred Language: Bahraini Communication Ability: Effective Grease Maker Required: No Beliefs That Will Affect Care: None marital status: Current Living Situation: Spouse Current Living Situation Comment: lives with Other Information That Helps Us Care for You: No Feels Safe at Home: Yes Safety Concerns: Feels Safe At This Time Smoking Status: Never smoker Hx Alcohol Use: No Hx Substance Use: No Review of Systems Review of Systems: All systems reviewed & are unremarkable except as noted in HPI & below Physical Exam Constitutional: well developed and + ill appearing; no acute distress Respiratory: normal respiratory effort; no respiratory distress, no labored breathing, no retractions and does not use accessory muscles Auscultation: + crackles (Bilateral bases); no rhonchi, no wheezes and no pleural rub Cardiovascular: Rate/Rhythm: + tachycardic and + irregularly irregular Heart Sounds: normal S1 and normal S2; no murmur Vessels: radial pulses present; no JVD and no carotid bruit Extremities: + edema (Trace to mild bilateral pedal and ankle edema.) Gastrointestinal (Abdomen): Inspection/Auscultation: abdomen normal to inspection and normal bowel sounds; abdomen not distended Percussion/Palpation: abdomen soft; abdomen nontender, no guarding and abdomen not rigid Skin: no rashes, warm and dry Neurologic: CN's II-XI intact bilaterally and moves all extremities; no focal motor deficits Speech / Cognition: normal speech Motor/Sensory: no tremor Psychiatric: A+Ox3, euthymic affect Results & Data ([facility]) Vital Signs (Past 12 Hours) Vital Signs Temp Pulse Resp BP Pulse Ox 01/22/20 07:49 36.5 C 110 H 16 106/64 92 01/22/20 06:59 92 H 18 91 01/22/20 03:40 36.6 C 74 18 99/60 L 94 01/22/20 00:01 109 H 20 91 01/21/20 23:28 36.9 C 82 18 93/56 L 94 (1) Atrial flutter Atrial flutter type: unspecified Qualified Code(s): I48.92 - Unspecified atrial flutter
[2020-01-22] MEDS ORDERED: MAGNESIUM SULFATE / D5W 1 GM/100 ML BAG IV ONE (11:00)
[2020-01-22] MEDS: AMIODARONE / D5W 360 MG/200 ML BAG IV SCH (17:34)
[2020-01-22] MEDS: AMITRIPTYLINE HCL 25 MG TAB PO SCH (21:09)
[2020-01-22] MEDS: LATANOPROST 0.005% OP SOLN 2.5 ML BTL OPL SCH (21:09)
[2020-01-23] MEDS: LEVALBUTEROL HCL 0.63 MG/3 ML NEB NEB SCH ×4 (00:53→19:26)
--- NOTE | 2020-01-23 04:47 | Electrocardiogram Report ---
Test Reason : Blood Pressure : / mmHG Vent. Rate : 082 BPM Atrial Rate : 000 BPM P-R Int : 000 ms QRS Dur : 090 ms QT Int : 388 ms P-R-T Axes : 000 016 079 degrees QTc Int : 453 ms Atrial fibrillation Septal infarct , age undetermined Abnormal ECG When compared with ECG of 21-JAN-2020 06:54, Atrial fibrillation has replaced Sinus rhythm Septal infarct is now Present Confirmed by Jay Marcum ([id number]) on 01/23/2020 4:46:58 AM Referred By: REFERRED SELF Confirmed By:Jay Marcum
--- NOTE | 2020-01-23 04:59 | Electrocardiogram Report ---
Test Reason : Blood Pressure : / mmHG Vent. Rate : 109 BPM Atrial Rate : 109 BPM P-R Int : 272 ms QRS Dur : 096 ms QT Int : 304 ms P-R-T Axes : 000 -16 083 degrees QTc Int : 409 ms Sinus tachycardia with 1st degree A-V block Nonspecific ST and T wave abnormality Abnormal ECG When compared with ECG of 22-JAN-2020 07:42, Sinus rhythm has replaced Atrial fibrillation Criteria for Septal infarct are no longer Present Confirmed by Jay Marcum ([id number]) on 01/23/2020 4:59:09 AM Referred By: REFERRED SELF Confirmed By:Jay Marcum
[2020-01-23] MEDS: AMIODARONE / D5W 360 MG/200 ML BAG IV SCH (05:38)
[2020-01-23] MEDS: DOXYCYCLINE HYCLATE 100 MG in DEXTROSE 5% 100 ML IV SCH ×2 (05:39→17:08)
[2020-01-23 07:34] LABS: Basophils # (auto) 0.01 K/uL (0-0.2); Basophils % (auto) 0.1 %; Eosinophils # (auto) 0.34 K/uL (0-0.5); Eosinophils % (auto) 2.8 %; Hematocrit (blood only) 29.9 % (37-47); Hemoglobin 9.6 g/dL (12.0-16.0); Immature Granulocytes # (auto) 0.06 K/uL (0.00-0.02); Immature Granulocytes % (auto) 0.5 %; Lymphocytes # (auto) 0.58 K/uL (1.2-3.4); Lymphocytes % (auto) 4.8 %; Mean Corpuscular Hemoglobin 29.2 pg (25-34); Mean Corpuscular Hgb Conc 32.1 g/dL (32-36); Mean Corpuscular Volume 90.9 fL (80-100); Mean Platelet Volume 9.6 fL (7.4-10.4); Monocytes % (auto) 4.9 %; Neutrophils # (auto) 10.56 K/uL (1.4-6.5); Neutrophils % (auto) 86.9 %; Platelet Count 130 K/uL (130-400); RDW Coefficient of Variation 14.9 % (11.5-14.5); RDW Standard Deviation 49.9 fL (36.4-46.3); Red Blood Count 3.29 M/uL (4.2-5.4); White Blood Count 12.15 K/uL (4.8-10.8)
[2020-01-23] MEDS: INSULIN ASPART 100 UNITS/ML 3 ML PEN SC SCH ×4 (08:07→21:10)
[2020-01-23] MEDS: CALCIUM 600MG + VIT D 400 IU TAB PO SCH ×2 (08:08→21:10)
[2020-01-23] MEDS: ROSUVASTATIN CALCIUM 20 MG TAB PO SCH (08:08)
[2020-01-23] MEDS: ESCITALOPRAM OXALATE 10 MG TAB PO SCH (08:09)
[2020-01-23] MEDS: MULTIVITAMIN TAB PO SCH (08:09)
[2020-01-23] MEDS: PANTOprazole 40 MG TAB PO SCH (08:09)
[2020-01-23] MEDS: METOPROLOL SUCC 50MG EXT REL TAB PO SCH (08:09)
[2020-01-23] MEDS: ASCORBIC ACID 500 MG TAB PO SCH (08:10)
[2020-01-23 08:11] LABS: BUN Creatinine Ratio 15.8 (10-20); Calcium 9.3 mg/dl (8.5-10.1); Creatinine Clr Calc Pharmacy 20.4 ml/min; Est GFR (Non-African American) 25.9; Potassium 4.2 mmol/L (3.5-5.1)
[2020-01-23] MEDS: CEFEPIME 2,000 MG in SYRINGE 7.5 ML IV SCH (08:17)
[2020-01-23] MEDS: TRAMADOL HCL 50 MG TABLET PO SCH (08:18)
--- NOTE | 2020-01-23 09:44 | Hospitalist Progress Note ---
Date of Service January 23, 2020 Assessment & Plan (1) Acute respiratory failure with hypoxia: (2) Hospital acquired PNA: This is an 84-year-old female with PMH of metastatic breast cancer (s/p surgery and radiation, chemo on hold), paroxysmal atrial fibrillation (relative contraindication anticoagulation due to rectal sheath hematoma, anemia, frequent falls), DM II, HTN, anemia and other medical problems listed below who presents with worsening shortness of breath since earlier today and was found to have acute hypoxic respiratory failure in setting of LLL PNA. -Hypoxic at 84% on room air today with nonproductive cough and shortness of breath. Oxygen saturation improved to 93% on 4 L nasal cannula -CXR with interval development of left lower lung zone airspace opacity suspicious for pneumonia and suspected small right pleural effusion and minimal right basilar airspace opacities. was Started on empiric antibiotics with vancomycin and cefepime. -Continue Xopenex nebs, supplemental oxygen as needed -COVID-19 PCR negative. Legionella ag pending -01/21/2020 updates: Patient seen earlier today with daughter. no acute distress. she was adjusting her nasal cannula on room air. the MRSA swab was negative and Vancomycin was stopped. Continuing the cefepime and then adding the Doxycycline. -2 view CXR on 01/22/2020 Persistent left midlung and left lung base airspace opacities suspicious for pneumonia. Cardiomegaly with decreased pulmonary vascular congestion.. Small right and trace left pleural effusions. Mildly improved aeration of the right lung base -01/23/2020: patient on IV amiodarone but her heart rhythm returned to sinus on 01/22/2020 after cardiology started IV amiodarone in place of usual home amiodarone. on exam in the AM of 01/23/2020 patient is still in sinus rhythm and currently on room air. will continue to monitor as inpatient and oxygen saturation and heart rate and rhythm (3) Anemia of chronic disease: History of multifactorial anemia in setting of CKD, cancer, ARABELLA -Following with Dr. Fong for this. Outpatient lab work in December revealed hemoglobin of 7 and patient received 2 units PRBCs last week with improved hemoglobin to 11.9 on ED presentation -another possibility is whether recent outpatient transfusion led to changes on lung imaging (4) Metastatic breast cancer: Follows with Dr. Fong, history of surgical resection and radiation. Chemo has been on hold for the past 1.5 months due to frequent hospitalizations (5) Nausea vomiting and diarrhea: -appears resolved -Nonobstructive bowel pattern on KUB -C. difficile negative -Antiemetics PRN (6) Paroxysmal atrial fibrillation: Atrial fibrillation with rapid ventricular response versus atrial flutter -Amiodarone as 200 once daily. Toprol 50 mg daily -hold off amlodipine to avoid hypotension -Anticoagulation contraindicated due to history of rectal sheath hematoma, frequent falls, anemia -patient initially sinus rhythm at start of this admission and had already been on amiodarone and beta moni because of history of Paroxysmal atrial fibrillation. Around 6 AM on 01/22/2020, she went back into atrial fibrillation and some rapid ventricular response slightly above 110s. patient on IV amiodarone but her heart rhythm returned to sinus on 01/22/2020 after cardiology started IV amiodarone in place of usual home amiodarone. management of amiodarone as per cardiology (7) DM type 2 (diabetes mellitus, type 2): A1c of 6.5 in December -Hold home agents -SSI while in-patient -BSG AC HS (8) CKD (chronic kidney disease), stage III: possible acute kidney injury -Worsening renal function over the past few weeks with creatinine of 2.12 on admission (previous baseline mid ones) -creatinine is 1.77 on 01/23/2020 so no significant worsening changes for now DVT Ppx: SCDs Code status: DNR/DNI PCP: Donna Mims [phone] Admission and Anticipated Discharge Date Admission Date: January 20, 2020 Subjective patient on IV amiodarone but her heart rhythm returned to sinus on 01/22/2020 after cardiology started IV amiodarone in place of usual home amiodarone. on exam in the AM of 01/23/2020 patient is still in sinus rhythm and currently on room air. will continue to monitor as inpatient and oxygen saturation and heart rate and rhythm no dizziness. no headache. no vomiting. no chest pain. no abdomen pain. Review of Systems Review of Systems: All systems reviewed & are unremarkable except as noted in Subjective Physical Exam Constitutional: comfortable Eyes: PERRL, conjunctivae normal, anicteric sclerae EOM intact bilaterally ENMT: external ear and nose normal, oropharynx normal Neck: trachea midline, no thyromegaly normal visual inspection Respiratory: normal respiratory effort, lungs clear to auscultation Cardiovascular: Rate/Rhythm: regular rate Gastrointestinal (Abdomen): normal bowel sounds, soft, nontender, no hepatosplenomegaly Musculoskeletal: Head/Neck/Chest: normocephalic and head atraumatic Neurologic: PERRL, EOMI, accommodation nl, no face palsy, no dysarthria C N's II-XI intact bilaterally Psychiatric: A+Ox3, euthymic affect Results & Data Results & Data ([facility]) Vital Signs (Past 12 Hours) Vital Signs Temp Pulse Pulse Resp BP Pulse Ox 01/23/20 07:59 36.6 C 80 16 124/64 97 01/23/20 06:52 80 16 97 01/23/20 03:15 36.9 C 70 16 101/56 L 98 01/23/20 00:53 78 18 90 01/23/20 00:00 77 01/22/20 23:03 37.1 C 87 16 119/61 95
--- NOTE | 2020-01-23 12:18 | Cardiology Progress Note ---
Date of Service January 23, 2020 Assessment & Plan (1) Paroxysmal atrial fibrillation: (2) Atrial flutter: (3) Hospital acquired PNA: (4) Anemia of chronic disease: (5) CKD (chronic kidney disease), stage III: Complex 84-year-old female with metastatic breast cancer admitted to the [facility] with nosocomial pneumonia. Recurrent atrial fibrillation recorded 01/22/2020. IV amiodarone initiated with subsequent conversion to sinus rhythm. Oral amiodarone titrated 200 mg twice daily. Patient is not chronically anticoagulated due to relative contraindications including anemia, frailty, fall risk, and history of rectus sheath hematoma. Discontinue intravenous amiodarone today. Continue oral amiodarone 200 mg twice daily for 7 days then reduce dose to 200 mg daily. Continue Toprol-XL 50 mg daily. Continue telemetry monitoring. Subjective Patient seen examined at the bedside. Converted to sinus rhythm yesterday. Rhythm has been stable overnight. Denies chest pain or palpitations. Cough unchanged. No sputum production. Tolerating diet medications. Offers no other concerns/complaints this time. Review of Systems Review of Systems: All systems reviewed & are unremarkable except as noted in HPI & below Physical Exam Constitutional: well developed and + ill appearing; no acute distress Respiratory: normal respiratory effort; no respiratory distress, no labored breathing, no retractions and does not use accessory muscles Auscultation: + crackles (Bilateral bases); no rhonchi, no wheezes and no pleural rub Cardiovascular: Rate/Rhythm: regular rhythm Heart Sounds: normal S1 and normal S2; no murmur Vessels: radial pulses present; no JVD and no carotid b ruit Extremities: + edema (Trace to mild bilateral pedal and ankle edema.) Gastrointestinal (Abdomen): Inspection/Auscultation: abdomen normal to inspection and normal bowel sounds; abdomen not distended Percussion/Palpation: abdomen soft; abdomen nontender, no guarding and abdomen not rigid Skin: no rashes, warm and dry Neurologic: CN's II-XI intact bilaterally and moves all extremities; no focal motor deficits Speech / Cognition: normal speech Motor/Sensory: no tremor Psychiatric: A+Ox3, euthymic affect Results & Data Vital Signs (Past 12 Hours) Vital Signs Temp Pulse Resp BP Pulse Ox 01/23/20 11:52 36.7 C 83 19 112/64 90 07/10/20 07:59 36.6 C 80 16 124/64 97 01/23/20 06:52 80 16 97 01/23/20 03:15 36.9 C 70 16 101/56 L 98 01/23/20 00:53 78 18 90 (1) Atrial flutter Atrial flutter type: unspecified Qualified Code(s): I48.92 - Unspecified atrial flutter
[2020-01-23] MEDS ORDERED: AMIODARONE 200 MG TAB PO STA (13:18)
[2020-01-23] MEDS: SENNA 8.6 MG TAB PO SCH (15:48)
[2020-01-23] MEDS ORDERED: AMIODARONE 200 MG TAB PO SCH (17:00)
[2020-01-23] MEDS: AMIODARONE 200 MG TAB PO SCH (17:08)
[2020-01-23] MEDS: AMITRIPTYLINE HCL 25 MG TAB PO SCH (21:09)
[2020-01-23] MEDS: LATANOPROST 0.005% OP SOLN 2.5 ML BTL OPL SCH (21:10)
[2020-01-24] MEDS: LEVALBUTEROL HCL 0.63 MG/3 ML NEB NEB SCH ×2 (00:36→06:59)
[2020-01-24] MEDS ORDERED: METOPROLOL TARTRATE 1 MG/ML VIAL IV STA (02:49)
[2020-01-24] MEDS: DOXYCYCLINE HYCLATE 100 MG in DEXTROSE 5% 100 ML IV SCH (05:29)
[2020-01-24 06:18] LABS: Hemoglobin 11.1 g/dL (12.0-16.0); Mean Corpuscular Volume 90.2 fL (80-100); Red Blood Count 3.77 M/uL (4.2-5.4); White Blood Count 9.75 K/uL (4.8-10.8)
[2020-01-24 06:19] LABS: Basophils # (auto) 0.02 K/uL (0-0.2); Basophils % (auto) 0.2 %; Eosinophils # (auto) 0.48 K/uL (0-0.5); Eosinophils % (auto) 4.9 %; Immature Granulocytes # (auto) 0.14 K/uL (0.00-0.02); Immature Granulocytes % (auto) 1.4 %; Lymphocytes # (auto) 0.61 K/uL (1.2-3.4); Lymphocytes % (auto) 6.3 %; Mean Corpuscular Hemoglobin 29.4 pg (25-34); Mean Corpuscular Hgb Conc 32.6 g/dL (32-36); Mean Platelet Volume 9.7 fL (7.4-10.4); Monocytes # (auto) 0.71 K/uL (0.11-0.59); Monocytes % (auto) 7.3 %; Neutrophils # (auto) 7.79 K/uL (1.4-6.5); Neutrophils % (auto) 79.9 %; Platelet Count 169 K/uL (130-400); RDW Coefficient of Variation 14.8 % (11.5-14.5); RDW Standard Deviation 48.7 fL (36.4-46.3)
[2020-01-24 06:46] LABS: Albumin Level 2.5 gm/dl (3.4-5.0); BUN Creatinine Ratio 13.7 (10-20); Calcium 9.7 mg/dl (8.5-10.1); Creatinine Clr Calc Pharmacy 20.9 ml/min; Est GFR (African American) 30.9; Est GFR (Non-African American) 26.6; Magnesium 1.8 mg/dl (1.8-2.4); Potassium 3.9 mmol/L (3.5-5.1)
[2020-01-24 06:49] LABS: Albumin Globulin Ratio 0.5 (0.9-2); Bilirubin,Total 0.5 mg/dl (0.2-1); Globulin 4.7 gm/dl (2.5-4.0); Total Protein 7.2 gm/dl (6.4-8.2)
--- NOTE | 2020-01-24 07:20 | Electrocardiogram Report ---
Test Reason : Blood Pressure : / mmHG Vent. Rate : 082 BPM Atrial Rate : 082 BPM P-R Int : 214 ms QRS Dur : 096 ms QT Int : 400 ms P-R-T Axes : -15 -10 037 degrees QTc Int : 467 ms Sinus rhythm with 1st degree A-V block Otherwise normal ECG When compared with ECG of 22-JAN-2020 12:20, QT has lengthened Confirmed by Jay Marcum ([id number]) on 01/24/2020 7:19:44 AM Referred By: REFERRED SELF Confirmed By:Jay Marcum
[2020-01-24] MEDS ORDERED: SODIUM CHLORIDE 0.9% 1000ML 250 ML IV ONE (07:36)
[2020-01-24] MEDS ORDERED: ACETAMINOPHEN 325 MG TAB PO PRN (07:37)
[2020-01-24] MEDS: INSULIN ASPART 100 UNITS/ML 3 ML PEN SC SCH ×4 (08:56→20:49)
[2020-01-24] MEDS: AMIODARONE 200 MG TAB PO SCH ×3 (08:59→20:48)
[2020-01-24] MEDS: MULTIVITAMIN TAB PO SCH (08:59)
[2020-01-24] MEDS: ROSUVASTATIN CALCIUM 20 MG TAB PO SCH (08:59)
[2020-01-24] MEDS: ESCITALOPRAM OXALATE 10 MG TAB PO SCH (08:59)
[2020-01-24] MEDS: CALCIUM 600MG + VIT D 400 IU TAB PO SCH ×2 (08:59→20:48)
[2020-01-24] MEDS: METOPROLOL SUCC 50MG EXT REL TAB PO SCH (09:00)
[2020-01-24] MEDS: PANTOprazole 40 MG TAB PO SCH (09:00)
[2020-01-24] MEDS: SENNA 8.6 MG TAB PO SCH (09:00)
[2020-01-24] MEDS: ASCORBIC ACID 500 MG TAB PO SCH (09:01)
[2020-01-24] MEDS: TRAMADOL HCL 50 MG TABLET PO SCH (09:02)
--- NOTE | 2020-01-24 10:09 | Cardiology Progress Note ---
Date of Service January 24, 2020 Assessment & Plan (1) Paroxysmal atrial fibrillation: (2) Atrial flutter: (3) Hospital acquired PNA: (4) Anemia of chronic disease: (5) CKD (chronic kidney disease), stage III: Complex 84-year-old female with metastatic breast cancer admitted to the [facility] with nosocomial pneumonia. Recurrent atrial fibrillation recorded 01/22/2020. IV amiodarone initiated with subsequent conversion to sinus rhythm. Oral amiodarone titrated 200 mg twice daily. Patient is not chronically anticoagulated due to relative contraindications including anemia, frailty, fall risk, and history of rectus sheath hematoma. Overnight once again intermittent atrial fibrillation Will increase amiodarone 400 mg 3 times daily Continue Toprol-XL 50 mg daily. Supplement potassium Nocturnal oximetry will be ordered Hold Lexapro transiently while amiodarone is titrated Continue telemetry monitoring. Subjective Patient seen examined at the bedside, chart, medications, telemetry reviewed. Converted to sinus rhythm yesterday. Patient with intermittent atrial fibrillation flutter overnight with spontaneous conversion transiently this morning. Currently no acute complaints. No chest pain or worsening shortness of breath. Physical Exam Constitutional: + ill appearing and + thin; no acute distress Eyes: PERRL, conjunctivae normal, anicteric sclerae ENMT: external ear and nose normal, oropharynx normal Neck: trachea midline, no thyromegaly Respiratory: Auscultation: + crackles (Minimal basilar) Cardiovascular: Rate/Rhythm: regular rate and regular rhythm Heart Sounds: normal S1 and normal S2 Vessels: no JVD and no carotid bruit Extremities: no edema Gastrointestinal (Abdomen): normal bowel sounds, soft, nontender, no hepatosplenomegaly Musculoskeletal: no cyanosis or clubbing, extremities motor strength 5/5 Results & Data Vital Signs (Past 12 Hours) Vital Signs Temp Pulse Pulse Resp BP BP Pulse Ox 01/24/20 07:44 37.1 C 117 H 20 112/71 99 01/24/20 07:00 118 H 14 93 01/24/20 03:53 37.2 C 105 H 18 117/69 92 01/24/20 02:58 114 H 111/66 01/24/20 00:38 82 16 90 01/23/20 23:29 84 01/23/20 22:58 37.2 C 82 18 130/57 L 92 Laboratory Results Laboratory Results - last 24 hr 01/23/20 01/23/20 01/23/20 11:22 16:41 17:00 WBC RBC Hgb Hct MCV MCH MCHC RDW Std Deviation RDW Coeff of Jennifer Plt Count MPV Immature Gran % (Auto) Neut % (Auto) Lymph % (Auto) [place] % (Auto) Eos % (Auto) Baso % (Auto) Neut # (Auto) Lymph # (Auto) [place] # (Auto) Eos # (Auto) Baso # (Auto) Immature Gran # (Auto) Sodium Potassium Chloride Carbon Dioxide Anion Gap BUN Creatinine Est Cr Clr Drug Dosing Est GFR ( Amer) Est GFR (Non-Af Amer) BUN/Creatinine Ratio Glucose POC Glucose 190 H 125 H Calcium Magnesium Total Bilirubin AST ALT Alkaline Phosphatase Total Protein Albumin Globulin Albumin/Globulin Ratio CA 15-3 Antigen CA 27-29 Stl C. diff Tox B Gene Negative Cdiff Gene 01/23/20 01/24/20 01/24/20 20:43 05:39 05:39 WBC 9.75 RBC 3.77 L Hgb 11.1 L Hct 34.0 L MCV 90.2 MCH 29.4 MCHC 32.6 RDW Std Deviation 48.7 H RDW Coeff of Jennifer 14.8 H Plt Count 169 MPV 9.7 Immature Gran % (Auto) 1.4 Neut % (Auto) 79.9 Lymph % (Auto) 6.3 San[place] % (Auto) 7.3 Eos % (Auto) 4.9 Baso % (Auto) 0.2 Neut # (Auto) 7.79 H Lymph # (Auto) 0.61 L [place] # (Auto) 0.71 H Eos # (Auto) 0.48 Baso # (Auto) 0.02 Immature Gran # (Auto) 0.14 H Sodium Potassium Chloride Carbon Dioxide Anion Gap BUN Creatinine Est Cr Clr Drug Dosing Est GFR ( Amer) Est GFR (Non-Af Amer) BUN/Creatinine Ratio Glucose POC Glucose 170 H Calcium Magnesium Total Bilirubin AST ALT Alkaline Phosphatase Total Protein Albumin Globulin Albumin/Globulin Ratio CA 15-3 Antigen Pending CA 27-29 Pending Stl C. diff Tox B Gene 01/24/20 01/24/20 05:39 07:16 WBC RBC Hgb Hct MCV MCH MCHC RDW Std Deviation RDW Coeff of Jennifer Plt Count MPV Immature Gran % (Auto) Neut % (Auto) Lymph % (Auto) [place] % (Auto) Eos % (Auto) Baso % (Auto) Neut # (Auto) Lymph # (Auto) [place] # (Auto) Eos # (Auto) Baso # (Auto) Immature Gran # (Auto) Sodium 140 Potassium 3.9 Chloride 106 Carbon Dioxide 25 Anion Gap 9.0 BUN 24 H Creatinine 1.73 H Est Cr Clr Drug Dosing 20.9 Est GFR ( Amer) 30.9 Est GFR (Non-Af Amer) 26.6 BUN/Creatinine Ratio 13.7 Glucose 134 H POC Glucose 146 H Calcium 9.7 Magnesium 1.8 Total Bilirubin 0.5 AST 72 H ALT 66 Alkaline Phosphatase 189 H Total Protein 7.2 Albumin 2.5 L Globulin 4.7 H Albumin/Globulin Ratio 0.5 L CA 15-3 Antigen CA 27-29 Stl C. diff Tox B Gene (1) Atrial flutter Atrial flutter type: unspecified Qualified Code(s): I48.92 - Unspecified atrial flutter
[2020-01-24] MEDS ORDERED: POTASSIUM CHLORIDE 20 MEQ TABCR PO ONE (10:11)
[2020-01-24] MEDS: CEFEPIME 2,000 MG in SYRINGE 7.5 ML IV SCH (11:41)
[2020-01-24] MEDS ORDERED: AMOXICILLIN/CLAVULANATE 500 MG TAB PO ONE (11:48)
[2020-01-24] MEDS ORDERED: LORazepam 0.5 MG TAB PO STA (11:49)
--- NOTE | 2020-01-24 12:12 | Hospitalist Progress Note ---
Date of Service January 24, 2020 Assessment & Plan (1) Acute respiratory failure with hypoxia: (2) Hospital acquired PNA: Left lower lobe pneumonia -This is an 84-year-old female with PMH of metastatic breast cancer (s/p surgery and radiation, chemo on hold), paroxysmal atrial fibrillation (relative contraindication anticoagulation due to rectal sheath hematoma, anemia, frequent falls), DM II, HTN, anemia and other medical problems listed below who presents with worsening shortness of breath since earlier today and was found to have acute hypoxic respiratory failure in setting of LLL PNA. -Hypoxic at 84% on room air today with nonproductive cough and shortness of breath. Oxygen saturation improved to 93% on 4 L nasal cannula -CXR with interval development of left lower lung zone airspace opacity suspicious for pneumonia and suspected small right pleural effusion and minimal right basilar airspace opacities. was Started on empiric antibiotics with vancomycin and cefepime. -Continue Xopenex nebs, supplemental oxygen as needed -COVID-19 PCR negative. Legionella ag pending -01/21/2020 updates: Patient seen earlier today with daughter. no acute distress. she was adjusting her nasal cannula on room air. the MRSA swab was negative and Vancomycin was stopped. Continuing the cefepime and then adding the Doxycycline. -2 view CXR on 01/22/2020 Persistent left midlung and left lung base airspace opacities suspicious for pneumonia. Cardiomegaly with decreased pulmonary vascular congestion.. Small right and trace left pleural effusions. Mildly improved aeration of the right lung base -on 01/23/2020 generally started to be on room air, was continued IV antibiotics - 01/24/2020: still on room air, and IV site infiltrated, transitioned to oral Augmentin BID and oral Doxycyline BID (3) Anemia of chronic disease: History of multifactorial anemia in setting of CKD, cancer, ARABELLA -Following with Dr. Fong for this. Outpatient lab work in December revealed hemoglobin of 7 and patient received 2 units PRBCs last week with improved hemoglobin to 11.9 on ED presentation -another possibility is whether recent outpatient transfusion led to changes on lung imaging (4) Nausea vomiting and diarrhea: -appears resolved -Nonobstructive bowel pattern on KUB -C. difficile negative -Antiemetics PRN (5) Paroxysmal atrial fibrillation: Atrial fibrillation with rapid ventricular response versus atrial flutter -Amiodarone as 200 once daily. Toprol 50 mg daily -hold off amlodipine to avoid hypotension -Anticoagulation contraindicated due to history of rectal sheath hematoma, frequent falls, anemia -patient initially sinus rhythm at start of this admission and had already been on amiodarone and beta moni because of history of Paroxysmal atrial fibr illation. Around 6 AM on 01/22/2020, she went back into atrial fibrillation and some rapid ventricular response slightly above 110s. patient on IV amiodarone but her heart rhythm returned to sinus on 01/22/2020 after cardiology started IV amiodarone in place of usual home amiodarone. she was then transitioned off IV amiodarone to 400 mg BID oral amiodarone on 01/23/2020. however again went back to atrial fibrillation with RVR and currently on amiodarone 400 mg TID - (6) Metastatic breast cancer: -Follows with Dr. Fong, history of surgical resection and radiation. Chemo has been on hold for the past 1.5 months due to frequent hospitalizations -September lab results after verifying with [facility] lab services and levels of CA 15-3 Test was 51 and the levels of CA 27.29 test was 102, these labs are drawn on 01/24/2020 and are sendout tests (7) DM type 2 (diabetes mellitus, type 2): A1c of 6.5 in December -Hold home agents -[facility] (8) CKD (chronic kidney disease), stage III: possible acute kidney injury -Worsening renal function over the past few weeks with creatinine of 2.12 on admission (previous baseline mid ones) -creatinine is 1.73 on 01/24/2020 as renal function improving over time on this admission DVT Ppx: SCDs Code status: DNR/DNI PCP: Donna Daughter [phone] Admission and Anticipated Discharge Date Admission Date: January 20, 2020 Subjective left arm swelling from IV infiltration. patient continues to be on room air. she has been in and out of atrial fibrillation and currently in atrial fibrillation with heart rates in low 100s. patient denies acute pain of chest or abdomen. she has been able to make bowel movements recently. she is able to eat the diet comfortably Review of Systems Review of Systems: All systems reviewed & are unremarkable except as noted in Subjective Physical Exam Constitutional: comfortable Eyes: PERRL, conjunctivae normal, anicteric sclerae EOM intact bilaterally ENMT: external ear and nose normal, oropharynx normal Neck: trachea midline, no thyromegaly normal visual inspection Respiratory: normal respiratory effort Cardiovascular: Rate/Rhythm: + tachycardic and + irregularly irregular Gastrointestinal (Abdomen): normal bowel sounds, soft, nontender, no hepatosplenomegaly Musculoskeletal: Head/Neck/Chest: normocephalic and head atraumatic left arm swelling from IV infiltration Neurologic: PERRL, EOMI, accommodation nl, no face palsy, no dysarthria CN's II-XI intact bilaterally Psychiatric: A+Ox3, euthymic affect Results & Data Results & Data ([facility]) Vital Signs (Past 12 Hours) Vital Signs Temp Pulse Pulse Resp BP BP BP 01/24/20 12:07 36.7 C 113 H 18 131/87 01/24/20 07:44 37.1 C 117 H 20 112/71 01/24/20 07:00 118 H 14 01/24/20 03:53 37.2 C 105 H 18 117/69 01/24/20 02:58 114 H 111/66 01/24/20 00:38 82 16 Pulse Ox 01/24/20 12:07 95 01/24/20 07:44 99 01/24/20 07:00 93 01/24/20 03:53 92 01/24/20 02:58 01/24/20 00:38 90
[2020-01-24] MEDS: AMOXICILLIN/CLAVULANATE 500 MG TAB PO SCH (16:57)
[2020-01-24] MEDS: AMITRIPTYLINE HCL 25 MG TAB PO SCH (20:48)
[2020-01-24] MEDS: DOXYCYCLINE HYCLATE 100 MG CAP PO SCH (20:48)
[2020-01-24] MEDS: LATANOPROST 0.005% OP SOLN 2.5 ML BTL OPL SCH (20:48)
[2020-01-25 08:34] LABS: Albumin Globulin Ratio 0.6 (0.9-2); Albumin Level 2.3 gm/dl (3.4-5.0); BUN Creatinine Ratio 12.4 (10-20); Bilirubin,Total 0.5 mg/dl (0.2-1); Calcium 9.6 mg/dl (8.5-10.1); Creatinine Clr Calc Pharmacy 23.3 ml/min; Est GFR (African American) 35.5; Est GFR (Non-African American) 30.7; Globulin 4.1 gm/dl (2.5-4.0); Hematocrit (blood only) 29.8 % (37-47); Hemoglobin 9.6 g/dL (12.0-16.0); Mean Corpuscular Hgb Conc 32.2 g/dL (32-36); Mean Platelet Volume 9.9 fL (7.4-10.4); Platelet Count 155 K/uL (130-400); RDW Coefficient of Variation 14.9 % (11.5-14.5); RDW Standard Deviation 49.1 fL (36.4-46.3); Red Blood Count 3.31 M/uL (4.2-5.4); Total Protein 6.4 gm/dl (6.4-8.2); White Blood Count 10.64 K/uL (4.8-10.8)
[2020-01-25 08:44] LABS: Basophils # (auto) 0.03 K/uL (0-0.2); Basophils % (auto) 0.3 %; Eosinophils # (auto) 0.48 K/uL (0-0.5); Eosinophils % (auto) 4.5 %; Immature Granulocytes # (auto) 0.59 K/uL (0.00-0.02); Immature Granulocytes % (auto) 5.5 %; Lymphocytes # (auto) 0.64 K/uL (1.2-3.4); Monocytes # (auto) 1.03 K/uL (0.11-0.59); Monocytes % (auto) 9.7 %; Neutrophils # (auto) 7.87 K/uL (1.4-6.5)
[2020-01-25] MEDS: TRAMADOL HCL 50 MG TABLET PO SCH (09:09)
[2020-01-25] MEDS: DOXYCYCLINE HYCLATE 100 MG CAP PO SCH ×2 (09:10→20:40)
[2020-01-25] MEDS: AMIODARONE 200 MG TAB PO SCH ×3 (09:10→20:39)
[2020-01-25] MEDS: CALCIUM 600MG + VIT D 400 IU TAB PO SCH ×2 (09:10→20:40)
[2020-01-25] MEDS: ASCORBIC ACID 500 MG TAB PO SCH (09:11)
[2020-01-25] MEDS: MULTIVITAMIN TAB PO SCH (09:11)
[2020-01-25] MEDS: METOPROLOL SUCC 50MG EXT REL TAB PO SCH (09:11)
[2020-01-25] MEDS: AMOXICILLIN/CLAVULANATE 500 MG TAB PO SCH ×2 (09:11→17:28)
[2020-01-25] MEDS: ROSUVASTATIN CALCIUM 20 MG TAB PO SCH (09:11)
[2020-01-25] MEDS: PANTOprazole 40 MG TAB PO SCH (09:11)
[2020-01-25] MEDS: SENNA 8.6 MG TAB PO SCH (09:12)
[2020-01-25] MEDS: INSULIN ASPART 100 UNITS/ML 3 ML PEN SC SCH ×4 (09:14→20:31)
--- NOTE | 2020-01-25 09:19 | Hospitalist Progress Note ---
Date of Service January 25, 2020 Assessment & Plan (1) Acute respiratory failure with hypoxia: (2) Hospital acquired PNA: Pneumonia (left lower lobe) -This is an 84-year-old female with PMH of metastatic breast cancer (s/p surgery and radiation, chemo on hold), paroxysmal atrial fibrillation (relative contraindication anticoagulation due to rectal sheath hematoma, anemia, frequent falls), DM II, HTN, anemia and other medical problems listed below who presents with worsening shortness of breath since earlier today and was found to have acute hypoxic respiratory failure in setting of LLL PNA. -Hypoxic at 84% on room air today with nonproductive cough and shortness of breath. Oxygen saturation improved to 93% on 4 L nasal cannula -CXR with interval development of left lower lung zone airspace opacity suspicious for pneumonia and suspected small right pleural effusion and minimal right basilar airspace opacities. was Started on empiric antibiotics with vancomycin and cefepime. -Continue Xopenex nebs, supplemental oxygen as needed -COVID-19 PCR negative. Legionella ag pending -01/21/2020 updates: Patient seen earlier today with daughter. no acute distress. she was adjusting her nasal cannula on room air. the MRSA swab was negative and Vancomycin was stopped. Continuing the cefepime and then adding the Doxycycline. -2 view CXR on 01/22/2020 Persistent left midlung and left lung base airspace opacities suspicious for pneumonia. Cardiomegaly with decreased pulmonary vascular congestion.. Small right and trace left pleural effusions. Mildly improved aeration of the right lung base -on 01/23/2020 generally started to be on room air, was continued IV antibiotics - 01/24/2020: still on room air, and IV site infiltrated, transitioned to oral Augmentin BID and oral Doxycycline BID -01/25/2020: on room air, continue oral Augmentin and Doxycycline, CXR on 01/25/2020 (3) Anemia of chronic disease: History of multifactorial anemia in setting of CKD, cancer, ARABELLA -Following with Dr. Fong for this. Outpatient lab work in December revealed hemoglobin of 7 and patient received 2 units PRBCs last week with improved hemoglobin to 11.9 on ED presentation -another possibility is whether recent outpatient transfusion led to changes on lung imaging (4) Nausea vomiting and diarrhea: -appears resolved -Nonobstructive bowel pattern on KUB -C. difficile negative -Antiemetics PRN (5) Paroxysmal atrial fibrillation: Atrial fibrillation with rapid ventricular response versus atrial flutter -Amiodarone as 200 once daily. Toprol 50 mg daily -hold off amlodipine to avoid hypotension -Anticoagulation contraindicated due to history of rectal sheath hematoma, frequent falls, anemia -patient initially sinus rhythm at start of this admission and had already been on amiodarone and beta moni because of history of Paroxysmal atrial fibrillation. Around 6 AM on 01/22/2020, she went back into atrial fibrillation and some rapid ventricular response slightly above 110s. patient on IV amiodarone but her heart rhythm returned to sinus on 01/22/2020 after cardiology started IV amiodarone in place of usual home amiodarone. she was then transitioned off IV amiodarone to 400 mg BID oral amiodarone on 01/23/2020. however again went back to atrial fibrillation with RVR -returned to sinu rhythm on 01/24/2020 while on amiodarone 400 mg TID -management of current amiodarone dosing and recommended outpatient dosing as per cardiology (6) Metastatic breast cancer: -Follows with Dr. Fong, history of surgical resection and radiation. Chemo has been on hold for the past 1.5 months due to frequent hospitalizations -September lab results after verifying with [facility] lab services and levels of CA 15-3 Test was 51 and the levels of CA 27.29 test was 102, these labs are drawn on 01/24/2020 and are sendout tests (7) DM type 2 (diabetes mellitus, type 2): A1c of 6.5 in December -Hold home agents -SSI while in-patient -[facility] (8) CKD (chronic kidney disease), stage III: acute kidney injury on CKD stage III -Worsening renal function over the past few weeks with creatinine of 2.12 on admission (previous baseline mid ones) -creatinine is 1.5 on 01/25/2020 as renal function improving over time on this admission DVT Ppx: SCDs Code status: DNR/DNI PCP: Donna Daughter [phone] Admission and Anticipated Discharge Date Admission Date: January 20, 2020 Review of Systems Review of Systems: All systems reviewed & are unremarkable except as noted in Subjective Physical Exam Constitutional: comfortable Eyes: PERRL, conjunctivae normal, anicteric sclerae EOM intact bilaterally ENMT: external ear and nose normal, oropharynx normal Neck: trachea midline, no thyromegaly normal visual inspection Respiratory: normal respiratory effort, lungs clear to auscultation normal respiratory effort Cardiovascular: Rate/Rhythm: regular rate and regular rhythm Gastrointestinal (Abdomen): normal bowel sounds, soft, nontender, no hepatosplenomegaly Musculoskeletal: Head/Neck/Chest: normocephalic and head atraumatic Neurologic: PERRL, EOMI, accommodation nl, no face palsy, no dysarthria CN's II-XI intact bilaterally Psychiatric: A+Ox3, euthymic affect Results & Data Results & Data ([facility]) Vital Signs (Past 12 Hours) Vital Signs Temp Pulse Pulse Resp BP Pulse Ox 01/25/20 08:26 36.7 C 83 18 146/67 H 95 01/25/20 03:53 36.9 C 82 18 141/65 H 93 01/24/20 23:49 79 01/24/20 23:13 37.0 C 79 18 139/62 94
[2020-01-25 09:31] LABS: Magnesium 1.5 mg/dl (1.8-2.4); Potassium 5.2 mmol/L (3.5-5.1)
--- NOTE | 2020-01-25 09:38 | XRay Report ---
XR chest 2V PA/lateral CLINICAL HISTORY: follow lung infiltrates COMPARISON STUDY: 01/22/2020 FINDINGS: The cardiac and mediastinal contours remain stable. There are small bilateral pleural effus ions. There are improving left mid and lower lung zone airspace opacities.[ IMPRESSION: 1. Improving left mid and lower lung zone airspace opacities 2. Decreasing right pleural effusion. Persistent trace left pleural effusion. ACT 112: Negative or not required by law. Electronically signed by: Shun Blanchard M.D. 01/25/2020 9:37 AM
[2020-01-25] MEDS ORDERED: MAGNESIUM OXIDE 400 MG TAB PO SCH (10:30)
[2020-01-25] MEDS ORDERED: CALCIUM GLUCONATE 10% 1,000 MG in SODIUM CHLORIDE 0.9% 50 ML IV ONE (10:45)
[2020-01-25] MEDS: MAGNESIUM SULFATE / D5W 1 GM/100 ML BAG IV SCH ×2 (12:01→14:17)
--- NOTE | 2020-01-25 13:17 | Cardiology Progress Note ---
Date of Service January 25, 2020 Assessment & Plan (1) Paroxysmal atrial fibrillation: (2) Atrial flutter: (3) Hospital acquired PNA: (4) Anemia of chronic disease: (5) CKD (chronic kidney disease), stage III: Complex 84-year-old female with metastatic breast cancer admitted [facility] with nosocomial pneumonia. Recurrent atrial fibrillation recorded 01/22/2020. IV amiodarone initiated with subsequent conversion to sinus rhythm. Oral amiodarone titrated 200 mg twice daily. Patient is not chronically anticoagulated due to relative contraindications including anemia, frailty, fall risk, and history of rectus sheath hematoma. Overnight once again intermittent atrial fibrillation Will increase amiodarone 400 mg 3 times daily Continue Toprol-XL 50 mg daily. Nocturnal oximetry will be ordered Hold Lexapro transiently while amiodarone is titrated As above we will continue current therapies. Likely reduce amiodarone in a.m. May benefit from additional antihypertensives will add low-dose nitrates to her regimen Subjective Patient seen examined at the bedside, chart, medications, telemetry reviewed. Patient has remained in sinus rhythm overnight. No worsening cardiac complaints. No dizziness or lightheadedness. Physical Exam Constitutional: + ill appearing and + thin; no acute distress Eyes: PERRL, conjunctivae normal, anicteric sclerae ENMT: external ear and nose normal, oropharynx normal Neck: trachea midline, no thyromegaly Respiratory: Auscultation: + crackles (Minimal basilar) Cardiovascular: Rate/Rhythm: regular rate and regular rhythm Heart Sounds: normal S1 and normal S2 Vessels: no JVD and no carotid bruit Extremities: no edema Gastrointestinal (Abdomen): normal bowel sounds, soft, nontender, no hepatosplenomegaly Musculoskeletal: no cyanosis or clubbing, extremities motor strength 5/5 Results & Data Vital Signs (Past 12 Hours) Vital Signs Temp Pulse Resp BP BP Pulse Ox 01/25/20 12:20 36.6 C 103 H 20 159/62 H 94 01/25/20 08:26 36.7 C 83 18 146/67 H 95 01/25/20 03:53 36.9 C 82 18 141/65 H 93 Laboratory Results Laboratory Results - last 24 hr 01/24/20 01/24/20 01/25/20 16:25 20:09 07:12 WBC RBC Hgb Hct MCV MCH MCHC RDW Std Deviation RDW Coeff of Jennifer Plt Count MPV Immature Gran % (Auto) Neut % (Auto) Lymph % (Auto) Perry % (Auto) Eos % (Auto) Baso % (Auto) Neut # (Auto) Lymph # (Auto) Perry # (Auto) Eos # (Auto) Baso # (Auto) Immature Gran # (Auto) Sodium Potassium Chloride Carbon Dioxide Anion Gap BUN Creatinine Est Cr Clr Drug Dosing Est GFR ( Amer) Est GFR (Non-Af Amer) BUN/Creatinine Ratio Glucose POC Glucose 125 H 149 H 138 H Calcium Magnesium Total Bilirubin AST ALT Alkaline Phosphatase Total Protein Albumin Globulin Albumin/Globulin Ratio Specimen Hemolysis 01/25/20 01/25/20 01/25/20 07:36 07:36 08:51 WBC 10.64 RBC 3.31 L Hgb 9.6 L Hct 29.8 L MCV 90.0 MCH 29.0 MCHC 32.2 RDW Std Deviation 49.1 H RDW Coeff of Jennifer 14.9 H Plt Count 155 MPV 9.9 Immature Gran % (Auto) 5.5 Neut % (Auto) 74.0 Lymph % (Auto) 6.0 Perry % (Auto) 9.7 Eos % (Auto) 4.5 Baso % (Auto) 0.3 Neut # (Auto) 7.87 H Lymph # (Auto) 0.64 L Perry # (Auto) 1.03 H Eos # (Auto) 0.48 Baso # (Auto) 0.03 Immature Gran # (Auto) 0.59 H Sodium 135 L Potassium 5.2 H D Chloride 103 Carbon Dioxide 24 Anion Gap 8.0 BUN 19 H Creatinine 1.54 H Est Cr Clr Drug Dosing 23.3 Est GFR ( Amer) 35.5 Est GFR (Non-Af Amer) 30.7 BUN/Creatinine Ratio 12.4 Glucose 132 H POC Glucose Calcium 9.6 Magnesium 1.5 L Total Bilirubin 0.5 AST 63 H ALT 59 Alkaline Phosphatase 142 H Total Protein 6.4 Albumin 2.3 L Globulin 4.1 H Albumin/Globulin Ratio 0.6 L Specimen Hemolysis 01/25/20 11:40 WBC RBC Hgb Hct MCV MCH MCHC RDW Std Deviation RDW Coeff of Jennifer Plt Count MPV Immature Gran % (Auto) Neut % (Auto) Lymph % (Auto) Perry % (Auto) Eos % (Auto) Baso % (Auto) Neut # (Auto) Lymph # (Auto) Perry # (Auto) Eos # (Auto) Baso # (Auto) Immature Gran # (Auto) Sodium Potassium Chloride Carbon Dioxide Anion Gap BUN Creatinine Est Cr Clr Drug Dosing Est GFR ( Amer) Est GFR (Non-Af Amer) BUN/Creatinine Ratio Glucose POC Glucose 145 H Calcium Magnesium Total Bilirubin AST ALT Alkaline Phosphatase Total Protein Albumin Globulin Albumin/Globulin Ratio Specimen Hemolysis (1) Atrial flutter Atrial flutter type: unspecified Qualified Code(s): I48.92 - Unspecified atrial flutter
[2020-01-25] MEDS: ISOSORBIDE DINITRATE 20 MG TAB PO SCH (14:19)
[2020-01-25 17:43] LABS: BUN Creatinine Ratio 12.1 (10-20); Calcium 9.5 mg/dl (8.5-10.1); Creatinine Clr Calc Pharmacy 23.9 ml/min; Est GFR (African American) 36.7; Est GFR (Non-African American) 31.7; Magnesium 2.1 mg/dl (1.8-2.4); Potassium 4.5 mmol/L (3.5-5.1)
[2020-01-25] MEDS: LATANOPROST 0.005% OP SOLN 2.5 ML BTL OPL SCH (20:39)
[2020-01-25] MEDS: MAGNESIUM OXIDE 400 MG TAB PO SCH (20:40)
[2020-01-25] MEDS: AMITRIPTYLINE HCL 25 MG TAB PO SCH (20:40)
[2020-01-25] MEDS: ONDANSETRON INJ 2 MG/ML 2 ML VIAL IV PRN (22:26)
--- NOTE | 2020-01-26 08:11 | Hospitalist Progress Note ---
Date of Service January 26, 2020 Assessment & Plan (1) Acute respiratory failure with hypoxia: (2) Hospital acquired PNA: Pneumonia (left lower lobe) -This is an 84-year-old female with PMH of metastatic breast cancer (s/p surgery and radiation, chemo on hold), paroxysmal atrial fibrillation (relative contraindication anticoagulation due to rectal sheath hematoma, anemia, frequent falls), DM II, HTN, anemia and other medical problems listed below who presents with worsening shortness of breath since earlier today and was found to have acute hypoxic respiratory failure in setting of LLL PNA. -Hypoxic at 84% on room air today with nonproductive cough and shortness of breath. Oxygen saturation improved to 93% on 4 L nasal cannula -CXR with interval development of left lower lung zone airspace opacity suspicious for pneumonia and suspected small right pleural effusion and minimal right basilar airspace opacities. was Started on empiric antibiotics with vancomycin and cefepime. -Continue Xopenex nebs, supplemental oxygen as needed -COVID-19 PCR negative. Legionella ag pending -01/21/2020 updates: Patient seen earlier today with daughter. no acute distress. she was adjusting her nasal cannula on room air. the MRSA swab was negative and Vancomycin was stopped. Continuing the cefepime and then adding the Doxycycline. -2 view CXR on 01/22/2020 Persistent left midlung and left lung base airspace opacities suspicious for pneumonia. Cardiomegaly with decreased pulmonary vascular congestion.. Small right and trace left pleural effusions. Mildly improved aeration of the right lung base -on 01/23/2020 generally started to be on room air, was continued IV antibiotics -01/24/2020: still on room air, and IV site infiltrated, transitioned to oral Augmentin BID and oral Doxycycline BID -01/25/2020: on room air, continue oral Augmentin and Doxycycline, CXR on 01/25/2020 completed -01/26/2020: on room air, continue oral Augmentin and Doxycycline (3) Anemia of chronic disease: History of multifactorial anemia in setting of CKD, cancer, ARABELLA -Following with Dr. Fong for this. Outpatient lab work in December revealed hemoglobin of 7 and patient received 2 units PRBCs last week with improved hemoglobin to 11.9 on ED presentation -another possibility is whether recent outpatient transfusion led to changes on lung imaging (4) Nausea vomiting and diarrhea: -appears resolved -Nonobstructive bowel pattern on KUB -C. difficile negative -Antiemetics PRN (5) Paroxysmal atrial fibrillation: Atrial fibrillation with rapid ventricular response versus atrial flutter -Anticoagulation contraindicated due to history of rectal sheath hematoma, frequent falls, anemia -patient initially sinus rhythm at start of this admission and had already been on amiodarone and beta moni because of history of Paroxysmal atrial fibrillation. Around 6 AM on 01/22/2020, she went back into atrial fibrillation and some rapid ventricular response slightly above 110s. patient on IV amiodarone but her heart rhythm returned to sinus on 01/22/2020 after cardiology started IV amiodarone in place of usual home amiodarone. she was then transitioned off IV amiodarone to 400 mg BID oral amiodarone on 01/23/2020. however again went back to atrial fibrillation with RVR -returned to sinu rhythm on 01/24/2020 while on amiodarone 400 mg TID and then intermittently would go back to afib RVR and sinus -01/26/2020: patient's atrial fibrillation with rapid ventricular response returned to sinus rhythm by yesterday night. However, the difficulty is for her to maintain sinus rhythm for greater than 48 hours on this hospital stay; currently on amiodarone 400 mg TID with metoprolol succinate 50 mg daily, isosorbide 20 mg BID -management of current amiodarone dosing and recommended outpatient dosing as per cardiology (6) Metastatic breast cancer: -Follows with Dr. Fong, history of surgical resection and radiation. Chemo has been on hold for the past 1.5 months due to frequent hospitalizations -September lab results after verifying with [facility] lab services and levels of CA 15-3 Test was 51 and the levels of CA 27.29 test was 102, these labs are drawn on 01/24/2020 and are sendout tests (7) DM type 2 (diabetes mellitus, type 2): A1c of 6.5 in December -Hold home agents -SSI while in-patient -[facility] (8) CKD (chronic kidney disease), stage III: acute kidney injury on CKD stage III -Worsening renal function over the past few weeks with creatinine of 2.12 on admission (previous baseline mid ones) -creatinine is 1.5 on 01/25/2020 as renal function improving over time on this admission Hypomagnesemia -serum magnesium 1.5 on 01/26/2020 and corrected with magnesium supplementation, trend the labs DVT Ppx: SCDs Code status: DNR/DNI PCP: Donna Daughter [phone] Admission and Anticipated Discharge Date Admission Date: January 20, 2020 Subjective patient's atrial fibrillation with rapid ventricular response returned to sinus rhythm by yesterday night. However, the difficulty is for her to maintain sinus rhythm for greater than 48 hours on this hospital stay on room air. no chest pain. no palpitations. no shortness of breath. no abdomen pain. no vomiting. no dizziness. no headache Review of Systems Review of Systems: All systems reviewed & are unremarkable except as noted in Subjective Physical Exam Constitutional: comfortable Eyes: PERRL, conjunctivae normal, anicteric sclerae EOM intact bilaterally ENMT: external ear and nose normal, oropharynx normal Neck: trachea midline, no thyromegaly normal visual inspection Respiratory: normal respiratory effort, lungs clear to auscultation normal respiratory effort Cardiovascular: Rate/Rhythm: regular rate and regular rhythm Gastrointestinal (Abdomen): normal bowel sounds, soft, nontender, no hepatosplenomegaly Musculoskeletal: Head/Neck/Chest: normocephalic and head atraumatic Neurologic: PERRL, EOMI, accommodation nl, no face palsy, no dysarthria CN's II-XI intact bilaterally Psychiatric: A+Ox3, euthymic affect Results & Data Results & Data ([facility]) Vital Signs (Past 12 Hours) Vital Signs Temp Pulse Pulse Resp BP BP Pulse Ox 01/26/20 07:53 36.5 C 90 16 159/69 H 95 01/26/20 03:17 36.5 C 96 H 16 166/60 H 96 01/25/20 23:20 84 01/25/20 22:58 36.8 C 82 16 147/64 H 92
[2020-01-26] MEDS: SENNA 8.6 MG TAB PO SCH (08:24)
[2020-01-26] MEDS: AMOXICILLIN/CLAVULANATE 500 MG TAB PO SCH ×2 (08:24→16:46)
[2020-01-26] MEDS: ASCORBIC ACID 500 MG TAB PO SCH (08:25)
[2020-01-26] MEDS: MULTIVITAMIN TAB PO SCH (08:25)
[2020-01-26] MEDS: ISOSORBIDE DINITRATE 20 MG TAB PO SCH (08:25)
[2020-01-26] MEDS: CALCIUM 600MG + VIT D 400 IU TAB PO SCH ×2 (08:26→21:30)
[2020-01-26] MEDS: PANTOprazole 40 MG TAB PO SCH (08:26)
[2020-01-26] MEDS: AMIODARONE 200 MG TAB PO SCH ×3 (08:26→21:29)
[2020-01-26] MEDS: METOPROLOL SUCC 50MG EXT REL TAB PO SCH (08:26)
[2020-01-26] MEDS: DOXYCYCLINE HYCLATE 100 MG CAP PO SCH ×2 (08:26→21:29)
[2020-01-26] MEDS: ROSUVASTATIN CALCIUM 20 MG TAB PO SCH (08:26)
[2020-01-26] MEDS: MAGNESIUM OXIDE 400 MG TAB PO SCH ×2 (08:27→21:28)
[2020-01-26] MEDS: INSULIN ASPART 100 UNITS/ML 3 ML PEN SC SCH ×4 (08:30→21:00)
[2020-01-26] MEDS: TRAMADOL HCL 50 MG TABLET PO SCH (08:35)
[2020-01-26 09:07] LABS: Hematocrit (blood only) 31.7 % (37-47); Hemoglobin 10.1 g/dL (12.0-16.0); Mean Corpuscular Hemoglobin 29.4 pg (25-34); Mean Corpuscular Hgb Conc 31.9 g/dL (32-36); Mean Corpuscular Volume 92.2 fL (80-100); Platelet Count 212 K/uL (130-400); RDW Standard Deviation 50.6 fL (36.4-46.3); Red Blood Count 3.44 M/uL (4.2-5.4); White Blood Count 11.25 K/uL (4.8-10.8)
[2020-01-26 09:46] LABS: Basophils # (auto) 0.03 K/uL (0-0.2); Basophils % (auto) 0.3 %; Eosinophils # (auto) 0.52 K/uL (0-0.5); Eosinophils % (auto) 4.6 %; Immature Granulocytes # (auto) 1.11 K/uL (0.00-0.02); Immature Granulocytes % (auto) 9.9 %; Lymphocytes # (auto) 0.82 K/uL (1.2-3.4); Lymphocytes % (auto) 7.3 %; Monocytes # (auto) 1.17 K/uL (0.11-0.59); Monocytes % (auto) 10.4 %; Neutrophils % (auto) 67.5 %
[2020-01-26 09:50] LABS: Albumin Level 2.4 gm/dl (3.4-5.0); BUN Creatinine Ratio 11.7 (10-20); Calcium 9.9 mg/dl (8.5-10.1); Creatinine Clr Calc Pharmacy 21.4 ml/min; Est GFR (Non-African American) 27.6; Magnesium 1.9 mg/dl (1.8-2.4); Potassium 4.6 mmol/L (3.5-5.1)
[2020-01-26 09:53] LABS: Albumin Globulin Ratio 0.6 (0.9-2); Bilirubin,Total 0.4 mg/dl (0.2-1); Globulin 4.2 gm/dl (2.5-4.0); Phosphorus 3.3 mg/dl (2.5-4.9); Total Protein 6.6 gm/dl (6.4-8.2)
--- NOTE | 2020-01-26 10:51 | Cardiology Progress Note ---
Date of Service January 26, 2020 Assessment & Plan (1) Paroxysmal atrial fibrillation: (2) Atrial flutter: (3) Hospital acquired PNA: (4) Anemia of chronic disease: (5) CKD (chronic kidney disease), stage III: Complex 84-year-old female with metastatic breast cancer admitted to the [facility] with nosocomial pneumonia. Recurrent atrial fibrillation recorded 01/22/2020. IV amiodarone initiated with subsequent conversion to sinus rhythm. Oral amiodarone titrated 200 mg twice daily. Patient is not chronically anticoagulated due to relative contraindications including anemia, frailty, fall risk, and history of rectus sheath hematoma. Patient remains in sinus rhythm overnight Plan: Increase Toprol-XL to 75 mg/day. Continue amiodarone 400 mg 3 times daily until discharge then discharged on 400 mg twice per day Isosorbide increased to 40 mg twice daily for additional hypertension control Subjective Patient seen examined at the bedside, chart, medications, telemetry reviewed. Patient has remained in sinus rhythm overnight since approximately 2200. No worsening cardiac complaints. No dizziness or lightheadedness. Physical Exam Constitutional: + ill appearing and + thin; no acute distress Eyes: PERRL, conjunctivae normal, anicteric sclerae ENMT: external ear and nose normal, oropharynx normal Neck: trachea midline, no thyromegaly Respiratory: Auscultation: + crackles (Minimal basilar) Cardiovascular: Rate/Rhythm: regular rate and regular rhythm Heart Sounds: normal S1 and normal S2 Vessels: no JVD and no carotid bruit Extremities: no edema Gastrointestinal (Abdomen): normal bowel sounds, soft, nontender, no hepatosplenomegaly Musculoskeletal: no cyanosis or clubbing, extremities motor strength 5/5 Results & Data Vital Signs (Past 12 Hours) Vital Signs Temp Pulse Pulse Resp BP BP Pulse Ox 01/26/20 10:00 75 01/26/20 07:53 36.5 C 90 16 159/69 H 95 01/26/20 03:17 36.5 C 96 H 16 166/60 H 96 01/25/20 23:20 84 01/25/20 22:58 36.8 C 82 16 147/64 H 92 Laboratory Results Laboratory Results - last 24 hr 01/25/20 01/25/20 01/25/20 11:40 16:19 17:11 WBC RBC Hgb Hct MCV MCH MCHC RDW Std Deviation RDW Coeff of Jennifer Plt Count MPV Immature Gran % (Auto) Neut % (Auto) Lymph % (Auto) Mora % (Auto) Eos % (Auto) Baso % (Auto) Neut # (Auto) Lymph # (Auto) Mora # (Auto) Eos # (Auto) Baso # (Auto) Immature Gran # (Auto) Sodium 136 Potassium 4.5 Chloride 104 Carbon Dioxide 23 Anion Gap 9.0 BUN 18 Creatinine 1.50 H Est Cr Clr Drug Dosing 23.9 Est GFR ( Amer) 36.7 Est GFR (Non-Af Amer) 31.7 BUN/Creatinine Ratio 12.1 Glucose 195 H POC Glucose 145 H 183 H Calcium 9.5 Phosphorus Magnesium 2.1 Total Bilirubin AST ALT Alkaline Phosphatase Total Protein Albumin Globulin Albumin/Globulin Ratio 01/25/20 01/26/20 01/26/20 19:49 07:14 08:26 WBC 11.25 H RBC 3.44 L Hgb 10.1 L Hct 31.7 L MCV 92.2 MCH 29.4 MCHC 31.9 L RDW Std Deviation 50.6 H RDW Coeff of Jennifer 15.0 H Plt Count 212 MPV 10.0 Immature Gran % (Auto) 9.9 Neut % (Auto) 67.5 Lymph % (Auto) 7.3 Mora % (Auto) 10.4 Eos % (Auto) 4.6 Baso % (Auto) 0.3 Neut # (Auto) 7.60 H Lymph # (Auto) 0.82 L Mora # (Auto) 1.17 H Eos # (Auto) 0.52 H Baso # (Auto) 0.03 Immature Gran # (Auto) 1.11 H Sodium Potassium Chloride Carbon Dioxide Anion Gap BUN Creatinine Est Cr Clr Drug Dosing Est GFR ( Amer) Est GFR (Non-Af Amer) BUN/Creatinine Ratio Glucose POC Glucose 111 H 143 H Calcium Phosphorus Magnesium Total Bilirubin AST ALT Alkaline Phosphatase Total Protein Albumin Globulin Albumin/Globulin Ratio 01/26/20 08:26 WBC RBC Hgb Hct MCV MCH MCHC RDW Std Deviation RDW Coeff of Jennifer Plt Count MPV Immature Gran % (Auto) Neut % (Auto) Lymph % (Auto) Mora % (Auto) Eos % (Auto) Baso % (Auto) Neut # (Auto) Lymph # (Auto) Mora # (Auto) Eos # (Auto) Baso # (Auto) Immature Gran # (Auto) Sodium 135 L Potassium 4.6 Chloride 102 Carbon Dioxide 25 Anion Gap 8.0 BUN 20 H Creatinine 1.68 H Est Cr Clr Drug Dosing 21.4 Est GFR ( Amer) 32.0 Est GFR (Non-Af Amer) 27.6 BUN/Creatinine Ratio 11.7 Glucose 176 H POC Glucose Calcium 9.9 Phosphorus 3.3 Magnesium 1.9 Total Bilirubin 0.4 AST 41 H ALT 48 Alkaline Phosphatase 134 H Total Protein 6.6 Albumin 2.4 L Globulin 4.2 H Albumin/Globulin Ratio 0.6 L (1) Atrial flutter Atrial flutter type: unspecified Qualified Code(s): I48.92 - Unspecified atrial flutter
[2020-01-26] MEDS ORDERED: METOPROLOL SUCC 25MG EXT REL TAB PO ONE (10:55)
[2020-01-26] MEDS: ISOSORBIDE DINITRATE 40 MG TAB PO SCH (12:11)
--- NOTE | 2020-01-26 14:33 | Electrocardiogram Report ---
Test Reason : Blood Pressure : / mmHG Vent. Rate : 093 BPM Atrial Rate : 227 BPM P-R Int : 000 ms QRS Dur : 078 ms QT Int : 380 ms P-R-T Axes : 000 007 055 degrees QTc Int : 472 ms Atrial flutter with variable A-V block Low voltage QRS Abnormal ECG When compared with ECG of 23-JAN-2020 09:44, Atrial flutter has replaced Sinus rhythm Confirmed by Latrell Srivastava ([id number]) on 01/26/2020 2:32:41 PM Referred By: REFERRED SELF Confirmed By:German Srivastava
[2020-01-26] MEDS: ONDANSETRON INJ 2 MG/ML 2 ML VIAL IV PRN (20:18)
[2020-01-26] MEDS: AMITRIPTYLINE HCL 25 MG TAB PO SCH (21:30)
[2020-01-26] MEDS: LATANOPROST 0.005% OP SOLN 2.5 ML BTL OPL SCH (21:30)
[2020-01-27] MEDS: ONDANSETRON INJ 2 MG/ML 2 ML VIAL IV PRN (06:33)
[2020-01-27] MEDS: ISOSORBIDE DINITRATE 40 MG TAB PO SCH ×2 (06:35→12:04)
[2020-01-27 08:24] LABS: Hematocrit (blood only) 31.2 % (37-47); Mean Corpuscular Hgb Conc 32.1 g/dL (32-36); Mean Corpuscular Volume 90.4 fL (80-100); Mean Platelet Volume 9.2 fL (7.4-10.4); Platelet Count 261 K/uL (130-400); RDW Standard Deviation 49.8 fL (36.4-46.3); Red Blood Count 3.45 M/uL (4.2-5.4); White Blood Count 12.63 K/uL (4.8-10.8)
[2020-01-27 08:47] LABS: Basophils # (auto) 0.03 K/uL (0-0.2); Basophils % (auto) 0.2 %; Eosinophils # (auto) 0.54 K/uL (0-0.5); Eosinophils % (auto) 4.3 %; Immature Granulocytes # (auto) 1.04 K/uL (0.00-0.02); Immature Granulocytes % (auto) 8.2 %; Lymphocytes # (auto) 0.99 K/uL (1.2-3.4); Lymphocytes % (auto) 7.8 %; Monocytes # (auto) 0.86 K/uL (0.11-0.59); Monocytes % (auto) 6.8 %; Neutrophils # (auto) 9.17 K/uL (1.4-6.5); Neutrophils % (auto) 72.7 %
[2020-01-27] MEDS ORDERED: METOPROLOL SUCC 25MG EXT REL TAB PO SCH (09:00)
[2020-01-27 09:01] LABS: BUN Creatinine Ratio 11.8 (10-20); Calcium 10.1 mg/dl (8.5-10.1); Creatinine Clr Calc Pharmacy 16.2 ml/min; Est GFR (African American) 22.7; Est GFR (Non-African American) 19.6; Magnesium 1.9 mg/dl (1.8-2.4); Potassium 4.3 mmol/L (3.5-5.1)
[2020-01-27] MEDS ORDERED: ALUMINUM/MAGNESIUM SUSP 30 ML UDC PO STA (09:02)
[2020-01-27 09:03] LABS: Phosphorus 4.7 mg/dl (2.5-4.9)
[2020-01-27] MEDS ORDERED: ALUMINUM/MAGNESIUM SUSP 30 ML UDC ONE (09:05)
[2020-01-27] MEDS: INSULIN ASPART 100 UNITS/ML 3 ML PEN SC SCH ×2 (09:13→12:04)
[2020-01-27] MEDS: AMIODARONE 200 MG TAB PO SCH ×2 (09:14→14:24)
[2020-01-27] MEDS: DOXYCYCLINE HYCLATE 100 MG CAP PO SCH (09:14)
[2020-01-27] MEDS: MAGNESIUM OXIDE 400 MG TAB PO SCH (09:14)
[2020-01-27] MEDS: MULTIVITAMIN TAB PO SCH (09:14)
[2020-01-27] MEDS: AMOXICILLIN/CLAVULANATE 500 MG TAB PO SCH (09:14)
[2020-01-27] MEDS: ASCORBIC ACID 500 MG TAB PO SCH (09:14)
[2020-01-27] MEDS: SENNA 8.6 MG TAB PO SCH (09:14)
[2020-01-27] MEDS: CALCIUM 600MG + VIT D 400 IU TAB PO SCH (09:14)
[2020-01-27] MEDS: PANTOprazole 40 MG TAB PO SCH (09:14)
[2020-01-27] MEDS: ROSUVASTATIN CALCIUM 20 MG TAB PO SCH (09:14)
[2020-01-27] MEDS: TRAMADOL HCL 50 MG TABLET PO SCH (09:16)
--- NOTE | 2020-01-27 12:12 | Hospitalist Progress Note ---
Date of Service January 27, 2020 Assessment & Plan (1) Acute respiratory failure with hypoxia: (2) Hospital acquired PNA: Pneumonia (left lower lobe) -This is an 84-year-old female with PMH of metastatic breast cancer (s/p surgery and radiation, chemo on hold), paroxysmal atrial fibrillation (relative contraindication anticoagulation due to rectal sheath hematoma, anemia, frequent falls), DM II, HTN, anemia and other medical problems listed below who presents with worsening shortness of breath since earlier today and was found to have acute hypoxic respiratory failure in setting of LLL PNA. -Hypoxic at 84% on room air today with nonproductive cough and shortness of breath. Oxygen saturation improved to 93% on 4 L nasal cannula -CXR with interval development of left lower lung zone airspace opacity suspicious for pneumonia and suspected small right pleural effusion and minimal right basilar airspace opacities. was Started on empiric antibiotics with vancomycin and cefepime. -Continue Xopenex nebs, supplemental oxygen as needed -COVID-19 PCR negative. Legionella ag pending -01/21/2020 updates: Patient seen earlier today with daughter. no acute distress. she was adjusting her nasal cannula on room air. the MRSA swab was negative and Vancomycin was stopped. Continuing the cefepime and then adding the Doxycycline. -2 view CXR on 01/22/2020 Persistent left midlung and left lung base airspace opacities suspicious for pneumonia. Cardiomegaly with decreased pulmonary vascular congestion.. Small right and trace left pleural effusions. Mildly improved aeration of the right lung base -on 01/23/2020 generally started to be on room air, was continued IV antibiotics -01/24/2020: still on room air, and IV site infiltrated, transitioned to oral Augmentin BID and oral Doxycycline BID -01/25/2020: on room air, continue oral Augmentin and Doxycycline, CXR on 01/25/2020 completed -01/26/2020: on room air, continue oral Augmentin and Doxycycline -01/27/2020: reviewed with patient and her daughter that recently WBC mildly elevated as 11,000 to 12,000 but patient has no fever and respiratory peterson doing well with the antibiotics on room air prescription of Augmentin as 500 mg twice a day and Doxycycline 100 mg tablet twice a day for 7 more days. (patient should minimize use of Maalox while on doxycycline. patient can get follow up CBC levels and Chest X ray as per primary care doctor (3) Anemia of chronic disease: History of multifactorial anemia in setting of CKD, cancer, ARABELLA -Following with Dr. Fong for this. Outpatient lab work in December revealed hemoglobin of 7 and patient received 2 units PRBCs last week with improved hemoglobin to 11.9 on ED presentation -another possibility is whether recent outpatient transfusion led to changes on lung imaging (4) Nausea vomiting and diarrhea: -appears resolved -Nonobstructive bowel pattern on KUB -C. difficile negative (5) Paroxysmal atrial fibrillation: Atrial fibrillation with rapid ventricular response versus atrial flutter -Anticoagulation contraindicated due to history of rectal sheath hematoma, frequent falls, anemia -patient initially sinus rhythm at start of this admission and had already been on amiodarone and beta moni because of history of Paroxysmal atrial fibrillation. Around 6 AM on 01/22/2020, she went back into atrial fibrillation and some rapid ventricular response slightly above 110s. patient on IV amiodarone but her heart rhythm returned to sinus on 01/22/2020 after cardiology started IV amiodarone in place of usual home amiodarone. she was then transitioned off IV amiodarone to 400 mg BID oral amiodarone on 01/23/2020. however again went back to atrial fibrillation with RVR -returned to sinu rhythm on 01/24/2020 while on amiodarone 400 mg TID and then intermittently would go back to afib RVR and sinus -01/26/2020: patient's atrial fibrillation with rapid ventricular response returned to sinus rhythm by yesterday night. However, the difficulty is for her to maintain sinus rhythm for greater than 48 hours on this hospital stay; currently on amiodarone 400 mg TID with metoprolol succinate 50 mg daily, isosorbide 20 mg BID -management of current amiodarone dosing and recommended outpatient dosing as per cardiology on 01/27/2020 discharge changes to cardiac medications on this admission includes amlodipine discontinued and basically replaced by isosorbide 40 mg twice a day, metoprolol as 75 mg daily amiodarone on discharge is 400 mg twice a day as per cardiology doctor. (patient takes Lexapro intermittently at home and asked to stop taking this on discharge to minimize potential side effects with the high dose of amiodarone) new prescriptions sent electronically to [email or web address] [address] [place] [address], [place] [address] upcoming appointments 01/29/2020 2:00 PM Provider Mana Thompson DO [facility] 02/10/2020 3:00 PM Provider Bijal Gardner PA-C Department Cardiology, [facility] 04/06/2020 12:30 PM Provider Bijal Gardner PA-C Department Cardiology, [place] 05/21/2020 8:40 AM Provider Mana Thompson DO [facility] (6) Metastatic breast cancer: -Follows with Dr. Fong, history of surgical resection and radiation. Chemo has been on hold for the past 1.5 months due to frequent hospitalizations -September lab results after verifying with [facility] lab services and levels of CA 15-3 Test was 51 and the levels of CA 27.29 test was 102, these labs are drawn on 01/24/2020 and are sendout tests (7) DM type 2 (diabetes mellitus, type 2): A1c of 6.5 in [place] -Hold home agents -SSI while in-patient -BSG AC HS (8) CKD (chronic kidney disease), stage III: acute kidney injury on CKD stage III -Worsening renal function over the past few weeks with creatinine of 2.12 on admission (previous baseline mid ones) -creatinine is 1.5 on 01/25/2020 as renal function improving over time on this admission, creatinine 1.68 on 01/26/2020, she was awaiting to go home with daughter on 01/27/2020 but creatinine lab returned as 2.23 - patient and her family agrees for IV fluids and creatinine recheck Hypomagnesemia -serum magnesium 1.5 on 01/26/2020 and corrected with magnesium supplementation -give daily oral magnesium DVT Ppx: SCDs Code status: DNR/DNI PCP: Donna Daughter [phone] Admission and Anticipated Discharge Date Admission Date: January 20, 2020 Subjective -creatinine is 1.5 on 01/25/2020 as renal function improving over time on this admission, creatinine 1.68 on 01/26/2020, she was awaiting to go home with daughter on 01/27/2020 but creatinine lab returned as 2.23 - patient and her family agrees for IV fluids and creatinine recheck no chest pain. no palpitations. no dizziness. no headache. on room air Review of Systems Review of Systems: All systems reviewed & are unremarkable except as noted in Subjective Physical Exam Constitutional: comfortable Eyes: PERRL, conjunctivae normal, anicteric sclerae EOM intact bilaterally ENMT: external ear and nose normal, oropharynx normal Neck: trachea midline, no thyromegaly normal visual inspection Respiratory: normal respiratory effort, lungs clear to auscultation normal respiratory effort Cardiovascular: Rate/Rhythm: regular rate and regular rhythm Gastrointestinal (Abdomen): normal bowel sounds, soft, nontender, no hepatosplenomegaly Musculoskeletal: Head/Neck/Chest: normocephalic and head atraumatic Neurologic: PERRL, EOMI, accommodation nl, no face palsy, no dysarthria CN's II-XI intact bilaterally Psychiatric: A+Ox3, euthymic affect Results & Data Results & Data ([facility]) Vital Signs (Past 12 Hours) Vital Signs Temp Pulse Pulse Resp BP Pulse Ox 01/27/20 12:02 36.5 C 74 18 118/72 92 01/27/20 08:00 74 01/27/20 07:52 36.5 C 77 18 125/70 92 01/27/20 04:41 36.8 C 75 18 131/67 91
[2020-01-27] MEDS ORDERED: SODIUM CHLORIDE 0.9% 1000ML 500 ML IV ONE (12:14)
[2020-01-27] MEDS ORDERED: MAGNESIUM SULFATE / D5W 1 GM/100 ML BAG IV ONE (12:45)
--- NOTE | 2020-01-27 14:09 | Cardiology Progress Note ---
Date of Service January 27, 2020 Assessment & Plan (1) Paroxysmal atrial fibrillation: (2) Atrial flutter: (3) Hospital acquired PNA: (4) Anemia of chronic disease: (5) CKD (chronic kidney disease), stage III: Complex 84-year-old female with metastatic breast cancer admitted to the [facility] with nosocomial pneumonia. Recurrent atrial fibrillation recorded 01/22/2020. . . Patient is not chronically anticoagulated due to relative contraindications including anemia, frailty, fall risk, and history of rectus sheath hematoma. Patient remains in sinus rhythm overnight Plan: Increase Toprol-XL to 75 mg/day. Continue amiodarone 400 mg 3 times daily until discharge then discharged on 400 mg twice per day Isosorbide increased to 40 mg twice daily for additional hypertension control Outpatient follow-up scheduled. Would repeat BMP in the next weeks time Subjective Patient seen examined at the bedside, chart, medications, telemetry reviewed. Patient has remained in sinus rhythm. No cardiac complaints. No orthopnea or peripheral edema Physical Exam Constitutional: + thin; no acute distress Eyes: PERRL, conjunctivae normal, anicteric sclerae ENMT: external ear and nose normal, oropharynx normal Neck: trachea midline, no thyromegaly Respiratory: Auscultation: + crackles (Minimal basilar) Cardiovascular: Rate/Rhythm: regular rate and regular rhythm Heart Sounds: normal S1 and normal S2 Vessels: no JVD and no carotid bruit Extremities: no edema Gastrointestinal (Abdomen): normal bowel sounds, soft, nontender, no hepatosplenomegaly Musculoskeletal: no cyanosis or clubbing, extremities motor strength 5/5 Results & Data Vital Signs (Past 12 Hours) Vital Signs Temp Pulse Pulse Resp BP Pulse Ox 01/27/20 12:02 36.5 C 74 18 118/72 92 01/27/20 08:00 74 01/27/20 07:52 36.5 C 77 18 125/70 92 01/27/20 04:41 36.8 C 75 18 131/67 91 Laboratory Results Laboratory Results - last 24 hr 01/26/20 01/26/20 01/27/20 15:55 20:09 07:17 WBC RBC Hgb Hct MCV MCH MCHC RDW Std Deviation RDW Coeff of Jennifer Plt Count MPV Immature Gran % (Auto) Neut % (Auto) Lymph % (Auto) Dale % (Auto) Eos % (Auto) Baso % (Auto) Neut # (Auto) Lymph # (Auto) Dale # (Auto) Eos # (Auto) Baso # (Auto) Immature Gran # (Auto) Sodium Potassium Chloride Carbon Dioxide Anion Gap BUN Creatinine Est Cr Clr Drug Dosing Est GFR ( Amer) Est GFR (Non-Af Amer) BUN/Creatinine Ratio Glucose POC Glucose 126 H 112 H 171 H Calcium Phosphorus Magnesium 01/27/20 01/27/20 01/27/20 08:01 08:01 11:17 WBC 12.63 H RBC 3.45 L Hgb 10.0 L Hct 31.2 L MCV 90.4 MCH 29.0 MCHC 32.1 RDW Std Deviation 49.8 H RDW Coeff of Jennifer 15.0 H Plt Count 261 MPV 9.2 Immature Gran % (Auto) 8.2 Neut % (Auto) 72.7 Lymph % (Auto) 7.8 Dale % (Auto) 6.8 Eos % (Auto) 4.3 Baso % (Auto) 0.2 Neut # (Auto) 9.17 H Lymph # (Auto) 0.99 L Dale # (Auto) 0.86 H Eos # (Auto) 0.54 H Baso # (Auto) 0.03 Immature Gran # (Auto) 1.04 H Sodium 133 L Potassium 4.3 Chloride 99 Carbon Dioxide 23 Anion Gap 11.0 BUN 26 H Creatinine 2.23 H D Est Cr Clr Drug Dosing 16.2 Est GFR ( Amer) 22.7 Est GFR (Non-Af Amer) 19.6 BUN/Creatinine Ratio 11.8 Glucose 181 H POC Glucose 207 H Calcium 10.1 Phosphorus 4.7 D Magnesium 1.9 (1) Atrial flutter Atrial flutter type: unspecified Qualified Code(s): I48.92 - Unspecified atrial flutter
[2020-01-27 16:16] LABS: BUN Creatinine Ratio 12.6 (10-20); Calcium 9.8 mg/dl (8.5-10.1); Creatinine Clr Calc Pharmacy 15.5 ml/min; Est GFR (African American) 21.5; Est GFR (Non-African American) 18.6; Magnesium 2.3 mg/dl (1.8-2.4); Potassium 4.8 mmol/L (3.5-5.1)
--- NOTE | 2020-01-27 17:09 | Discharge Summary ---
Date of Service January 27, 2020 Admission HPI Per Admitting Provider This is an 84-year-old female with PMH of metastatic breast cancer (s/p surgery and radiation, chemo on hold), paroxysmal atrial fibrillation (relative contraindication anticoagulation due to rectal sheath hematoma, anemia, frequent falls), DM II, HTN, anemia and other medical problems listed below who presents with worsening shortness of breath since earlier today. Patient was recently admitted from late November-December for small bowel obstruction and atrial fibrillation. Since discharge home, patient developed urinary symptoms which resolved after 3-day course of Cipro prescribed on 01/02. Last evening, patient noted that she is feeling more fatigued. Had an ice cream cone, which she was afraid "did not sit well with failure". Developed acid reflux, nausea and had 3 episodes of vomiting overnight. Also endorses large episode of diarrhea. Has been having loose stool ever since discharge home from hospital but this was significantly more watery. Also endorses nonproductive cough and shortness of breath starting this morning. When daughter visited her, states that patient looked pale, was breathing quickly and was sweaty and felt warm. Brought in by EMS for further evaluation. Currently patient is feeling much better after DuoNeb treatment and is saturating at 93% on 4 L nasal cannula. Was initially hypoxic 84% on room air. Does not require home O2 normally. Denies chills, lightheadedness, co nfusion, congestion, chest pain, wheezing, nausea, abdominal pain, dysuria or constipation. Lives at home with and requires consistent help from both daughters who live locally. Principal Diagnosis Acute respiratory failure with hypoxia (resolved) Pneumonia (left lower lobe) Nausea vomiting and diarrhea Paroxysmal atrial fibrillation, Atrial fibrillation with rapid ventricular response acute kidney disease on CKD (chronic kidney disease), stage III Hypomagnesemia Metastatic breast cancer Anemia Discharge Exam Constitutional comfortable Eyes PERRL, conjunctivae normal, anicteric sclerae EOM intact bilaterally ENMT external ear and nose normal, oropharynx normal Neck trachea midline, no thyromegaly normal visual inspection Respiratory normal respiratory effort, lungs clear to auscultation normal respiratory effort Cardiovascular Rate/Rhythm: regular rate and regular rhythm Gastrointestinal (Abdomen) normal bowel sounds, soft, nontender, no hepatosplenomegaly Musculoskeletal Head/Neck/Chest: normocephalic and head atraumatic Neurologic PERRL, EOMI, accommodation nl, no face palsy, no dysarthria CN's II-XI intact bilaterally Psychiatric A+Ox3, euthymic affect Discharge Data Allergies Allergy/AdvReac Type Severity Reaction Status Date / Time Influenza Virus Vaccines Allergy Mild SWELLING Verified 01/20/20 07:58 Consultations 01/20/20 10:01 ED Decision to Admit Stat 01/20/20 12:45 Consult Case Management - Discharge Planning Routine 01/22/20 08:18 Consult Cardiology Routine Hospital Course (1) Acute respiratory failure with hypoxia: (2) Hospital acquired PNA: Pneumonia (left lower lobe) -This is an 84-year-old female with PMH of metastatic breast cancer (s/p surgery and radiation, chemo on hold), paroxysmal atrial fibrillation (relative contraindication anticoagulation due to rectal sheath hematoma, anemia, frequent falls), DM II, HTN, anemia and other medical problems listed below who presents with worsening shortness of breath since earlier today and was found to have acute hypoxic respiratory failure in setting of LLL PNA. -Hypoxic at 84% on room air today with nonproductive cough and shortness of breath. Oxygen saturation improved to 93% on 4 L nasal cannula -CXR with interval development of left lower lung zone airspace opacity suspicious for pneumonia and suspected small right pleural effusion and minimal right basilar airspace opacities. was Started on empiric antibiotics with vancomycin and cefepime. -Continue Xopenex nebs, supplemental oxygen as needed -COVID-19 PCR negative. Legionella ag pending -01/21/2020 updates: Patient seen earlier today with daughter. no acute distress. she was adjusting her nasal cannula on room air. the MRSA swab was negative and Vancomycin was stopped. Continuing the cefepime and then adding the Doxycycline. -2 view CXR on 01/22/2020 Persistent left midlung and left lung base airspace opacities suspicious for pneumonia. Cardiomegaly with decreased pulmonary vascular congestion.. Small right and trace left pleural effusions. Mildly improved aeration of the right lung base -on 01/23/2020 generally started to be on room air, was continued IV antibiotics -01/24/2020: still on room air, and IV site infiltrated, transitioned to oral Augmentin BID and oral Doxycycline BID -01/25/2020: on room air, continue oral Augmentin and Doxycycline, CXR on 01/25/2020 completed -01/26/2020: on room air, continue oral Augmentin and Doxycycline -01/27/2020: reviewed with patient and her daughter that recently WBC mildly elevated as 11,000 to 12,000 but patient has no fever and respiratory peterson doing well with the antibiotics on room air prescription of Augmentin as 500 mg twice a day and Doxycycline 100 mg tablet twice a day for 7 more days. (patient should minimize use of Maalox while on doxycycline. patient can get follow up CBC levels and Chest X ray as per primary care doctor (3) Anemia of chronic disease: History of multifactorial anemia in setting of CKD, cancer, ARABELLA -Following with Dr. Fong for this. Outpatient lab work in December revealed hemoglobin of 7 and patient received 2 units PRBCs last week with improved hemoglobin to 11.9 on ED presentation -another possibility is whether recent outpatient transfusion led to changes on lung imaging (4) Nausea vomiting and diarrhea: -appears resolved -Nonobstructive bowel pattern on KUB -C. difficile negative (5) Paroxysmal atrial fibrillation: Atrial fibrillation with rapid ventricular response versus atrial flutter -Anticoagulation contraindicated due to history of rectal sheath hematoma, frequent falls, anemia -patient initially sinus rhythm at start of this admission and had already been on amiodarone and beta moni because of history of Paroxysmal atrial fibrillation. Around 6 AM on 01/22/2020, she went back into atrial fibrillation and some rapid ventricular response slightly above 110s. patient on IV am iodarone but her heart rhythm returned to sinus on 01/22/2020 after cardiology started IV amiodarone in place of usual home amiodarone. she was then transitioned off IV amiodarone to 400 mg BID oral amiodarone on 01/23/2020. however again went back to atrial fibrillation with RVR -returned to sinu rhythm on 01/24/2020 while on amiodarone 400 mg TID and then intermittently would go back to afib RVR and sinus -01/26/2020: patient's atrial fibrillation with rapid ventricular response returned to sinus rhythm by yesterday night. However, the difficulty is for her to maintain sinus rhythm for greater than 48 hours on this hospital stay; currently on amiodarone 400 mg TID with metoprolol succinate 50 mg daily, isosorbide 20 mg BID -management of current amiodarone dosing and recommended outpatient dosing as per cardiology on 01/27/2020 discharge changes to cardiac medications on this admission includes amlodipine discontinued and basically replaced by isosorbide 40 mg twice a day, metoprolol as 75 mg daily amiodarone on discharge is 400 mg twice a day as per cardiology doctor. (patient takes Lexapro intermittently at home and asked to stop taking this on discharge to minimize potential side effects with the high dose of amiodarone) new prescriptions sent electronically to [facility] [address] [place] [address], [place] [address] upcoming appointments 01/29/2020 2:00 PM Provider Mana Thompson DO [facility] [place] 02/10/2020 3:00 PM Provider Bijal Gardner PA-C Department Cardiology, [facility] 04/06/2020 12:30 PM Provider Bijal Gardner PA-C Department Cardiology, [place] 05/21/2020 8:40 AM Provider Mana Thompson [facility] [place] (6) Metastatic breast cancer: -Follows with Dr. Fong, history of surgical resection and radiation. Chemo has been on hold for the past 1.5 months due to frequent hospitalizations -September lab results after verifying with [facility] lab services and levels of CA 15-3 Test was 51 and the levels of CA 27.29 test was 102, these labs are drawn on 01/24/2020 and are sendout tests (7) DM type 2 (diabetes mellitus, type 2): A1c of 6.5 in December -Hold home agents -[facility] (8) CKD (chronic kidney disease), stage III: acute kidney injury on CKD stage III -Worsening renal function over the past few weeks with creatinine of 2.12 on admission (previous baseline mid ones) -creatinine is 1.5 on 01/25/2020 as renal function improving over time on this admission, creatinine 1.68 on 01/26/2020, she was awaiting to go home with daughter on 01/27/2020 but creatinine lab returned as 2.23 - patient and her family agrees for IV fluids and creatinine recheck however this was subsequently bumped up to 2.33 hospitalist discussed with patient and her family that IV fluids can be offered to continue for overnight and to re-assess labs by tomorrow. However, after discussing in regards to overall health of patient and respecting patient's autonomy, patient wishes to be discharged and follow up with repeat bloodwork from primary care and cardiology clinic and her daughter in agreement Hypomagnesemia -serum magnesium 1.5 on 01/26/2020 and corrected with magnesium supplementation -give daily oral magnesium DVT Ppx: SCDs Code status: DNR/DNI PCP: Donna Daughter [phone] Total Time Total Time Spent Total Time Spent (In Minutes): 40 minutes Total Time Includes: Examination of the Patient, Discharge Planning, Medication Reconciliation and Communication With Other Providers Discharge Plan Discharge Items Patient Disposition: Home - Self-Care Reason For Visit: PNA, N/V/D Discharge Diagnosis: Acute respiratory failure with hypoxia (resolved) Pneumonia (left lower lobe) Nausea vomiting and diarrhea Paroxysmal atrial fibrillation, Atrial fibrillation with rapid ventricular response acute kidney disease on CKD (chronic kidney disease), stage III Hypomagnesemia Metastatic breast cancer Anemia Condition on Discharge: Fair Activity: Per Instructions section Non-emergency contact: Primary Care Provider Call non-emergency contact if: you have any medication questions Follow-up/Referrals: Mana Thompson DO [Primary Care Provider] - 01/29/20 2:00 pm (01/29/2020 2:00 PM Provider Mana Thompson DO Department [facility] ) Diet: Carb Consistent or DM2 and Heart Healthy Addtl Attending Provider Instructions: reviewed with patient and her daughter that recently WBC mildly elevated as 11,000 to 12,000 but patient has no fever and respiratory peterson doing well with the antibiotics on room air prescription of Augmentin as 500 mg twice a day and Doxycycline 100 mg tablet twice a day for 7 more days. (patient should minimize use of Maalox while on doxycycline. patient can get follow up CBC levels and creatinine levels and Chest X ray as per primary care doctor changes to cardiac medications on this admission includes amlodipine discontinued and basically replaced by isosorbide 40 mg twice a day, metoprolol as 75 mg daily amiodarone on discharge is 400 mg twice a day as per cardiology doctor. (patient takes Lexapro intermittently at home and asked to stop taking this on discharge to minimize potential side effects with the high dose of amiodarone) new prescriptions sent electronically to [facility] [address] [place] [id number] 01/27/2020 creatinine is 2.33 and patient wishes to be discharged and follow up with repeat bloodwork from primary care and cardiology clinic upcoming appointments 01/29/2020 2:00 PM Provider Mana Thompson DO [facility] [place] 02/10/2020 3:00 PM Provider Bijal Gardner PA-C Department Cardiology, [facility] 04/06/2020 12:30 PM Provider Bijal Gardner PA-C Department Cardiology, [place] 05/21/2020 8:40 AM Provider Mana Thompson DO [facility] Pending Studies at Discharge: Yes Studies:: CA 15-3 Test and CA 27.29 test drawn on 01/24/2020 are pending results Stand-Alone Forms: My [facility], Smoking Cessation Medications and DC Order Prescriptions: New doxycycline hyclate 100 mg Capsule 100 mg PO BID 7 Days Qty: 14 RF: 0 amiodarone 200 mg Tablet 400 mg PO BID 30 Days Qty: 120 RF: 0 isosorbide dinitrate [Isordil] 40 mg Tablet 40 mg PO BID@0700,1200 30 Days Qty: 30 RF: 0 metoprolol succinate 25 mg Tablet Extended Release 24 Hr 75 mg PO DAILY 30 Days Qty: 90 RF: 0 amoxicillin-pot clavulanate 500-125 mg Tablet 1 tab PO BIDM 7 Days Qty: 14 RF: 0 magnesium oxide 400 mg magnesium tablet 400 mg PO DAILY 7 Days Qty: 7 RF: 0 Continued multivitamin Tablet 1 tab PO QAM RF: 0 alprazolam [Xanax] 0.25 mg Tablet 0.25 mg PO HS PRN (Reason: Anxiety) RF: 0 ascorbic acid (vitamin C) [Vitamin C] 500 mg Tablet 500 mg PO QAM RF: 0 rosuvastatin [Crestor] 20 mg Tablet 20 mg PO QAM RF: 0 calcium carbonate-vitamin D3 [Os-Arcadio 500 + D3] 500 mg(1,250mg) -200 unit Tablet 1 tab PO BID RF: 0 diphenhydramine-acetaminophen [Tylenol PM Extra Strength] 25-500 mg Tablet 1 tab PO HS PRN (Reason: Sleep and Pain) RF: 0 tramadol 50 mg Tablet 50 mg PO DAILY RF: 0 cranberry 400 mg Capsule 400 mg PO QAM RF: 0 Tradjenta 5 mg Tablet 5 mg PO QAM RF: 0 ondansetron HCl [Zofran] 4 mg Tablet 4 mg PO Q6H PRN (Reason: Nausea) RF: 0 latanoprost 0.005 % Drops 1 drp OPL HS RF: 0 amitriptyline 25 mg Tablet 25 mg PO HS RF: 0 esomeprazole magnesium [Nexium] 20 mg Capsule,Delayed Release(Dr/Ec) 20 mg PO QAM RF: 0 oxycodone-acetaminophen [Percocet] 5-325 mg Tablet 1 tab PO Q8H PRN (Reason: Pain) RF: 0 Discontinued escitalopram oxalate [Lexapro] 10 mg Tablet 10 mg PO QAM RF: 0 amiodarone 200 mg Tablet 200 mg PO DAILY RF: 0 metoprolol succinate [Toprol XL] 50 mg Tablet Extended Release 24 Hr 50 mg PO DAILY RF: 0 amlodipine 5 mg Tablet 5 mg PO QAM RF: 0 Discharge Orders: Discharge Order (Routine); Ordered 01/27/20 Ordered By: Shelton Armstrong Admission Data Admit Date/Time: 01/20/20 11:37 Attending Provider: Shelton Armstrong Admit Provider: Davian Wang Primary Care Provider: Mana Thompson Other Providers: Davian Wang ; Grey Perez
[2020-01-29 23:04] LABS: CA 27.29 592 U/mL (<38); CA15-3 Breast Antigen 370 U/mL (<32)
== END 2020-01-27 18:24 | disposition home or self-care (01) | DRG 193 ==
LOC: ED 07:34 → 2S 11:37 → SUATTDRO 11:37 → 2S 12:24